=== PATIENT | female | born 1960 | race Caucasian/White ===

== ENCOUNTER → 2016-10-07 | Outpatient (CLI) | payer MEDICARE ==
[~2016-10-07] MED LIST: /HCTZ25TA PO; /LAMO10TA; /PANT40TA; /PANT40TA OR; /PANT40TA PO; /WARF25TA; ABIL10TA PO; ABIL30TA4; ABIL30TA4 OR; AMMO12LO TOP; ARTI99.0 OU; ARTISOL10 OU; ASPI1TAB PO; ASPI81TA85 PO; ASTE137S; ASTELIN NASAL; ASTELIN NASAL SPRAY; AZIT250T3 PO; BUSP10TA PO; BUSP15TA47 PO; BUSP30TA; BUSP30TA PO; BUSPAR PO; CALC1TAB64 PO; CALC600T7 PO; CALCCHW12; CALCCHW12 OR; CALCD50TA PO; CICL8SOL TOP; COLA100C2; COLACE PO; CUTI0.05 TOP; DEPLIN; DOC Q LACE PO; DOCU100C PO; DOCU10ELUD PO; ENOX40SY; FLUT0.003 EX; HYDR EXT; IBUP600T26 PO; JOLESSA; JOLETAB; LAC HYDRIN 12%; LAC HYDRIN TOP; LACH12LO EXT; LACHYDRIN TOP; LAMISIL250 PO; LATA5OPD OU; LATU40TA PO; LITH150C OR; LITH300T2 OR; LITH300T2 PO; LITH450T; LITH600C PO; LITHIUM CARBONATE; LORA10TA2 PO; LOTRISCREA TOPICALLY; MONISTAT7 TOPICALLY; MOTRIN6 PO; MULTCAP11 PO; MULTIVIT PO; NAPROSY375 PO; NASONEX NASAL; NEURONTIN6 PO; NIZORALCR TOP; NYST100024 TOP; NYSTATIN; NYSTATINP TOPICAL; OXISTAT TOPICAL; PREVACID30 PO; PRIL40CA PO; PRILOSEC20 PO; PRILOSECOT PO; RISP1TAB OR; ROBITUSSIN PO; ROZEREM; SEASONALE PO; SENO8.6T2 PO; SERO1TAB PO; SYNT50TA; SYNT50TA OR; SYNT50TA PO; SYNTHROI05 PO; TRAZ100T; TRAZ50TA; TRAZ50TA OR; TRAZ50TA2 PO; TYLE325T5 PO; TYLENOL ARTHRITIS; TYLENOL325 PO; VIOXX125 PO; VIOXX25 PO; VITMTA PO; VOLT1GEL2 TD; VOLT1GEL24 TD; XANA0.25 PO; XANA0.5T PO; YASMIN PO; ZIPR60CA11 PO; ZOLO100T; ZOLO100T PO; ZOLO50TA; ZOLO50TA OR; ZOLO50TA PO; ZYRT10CA PO; [UNRECOGNIZED DRUG - CODE] EX; [UNRECOGNIZED DRUG - CODE] PO; [UNRECOGNIZED DRUG - OTHER] TOPICAL; trazodone PO
[2016-10-07 09:21] LABS: BLOOD UREA NITROGEN 18 MG/DL (7-18); CREATININE FOR GFR 0.74 MG/DL (0.55-1.02); GLOMERULAR FILTRATION RATE > 60.0 (>51)
[2016-10-07 09:23] LABS: LITHIUM LEVEL 0.76 MEQ/L (0.60-1.20)
== END ==
LOC: M LAB 07:36
PROVIDERS: ATTEND Psychiatry & Neurology Psychiatry
DX: F31.9 Bipolar disorder, unspecified (principal)

== ENCOUNTER → 2016-10-07 | Outpatient (CLI) | payer MEDICARE ==
[2016-10-07 08:28] LABS: BASO % 0.5 % (0.0-1.0); EOS # 0.2 K/mm3 (0.0-0.50); EOS % 2.8 % (0.0-3.0); LARGE UNSTAINED CELL # 0.1 K/mm3 (0.0-0.4); LARGE UNSTAINED CELL % 1.8 % (0.0-4.0); LYMPH # 1.4 K/mm3 (1.5-4.5); LYMPH % 19.8 % (24.0-44.0); MEAN CORPUSCULAR HEMOGLOBIN 28.6 pg (27.0-33.0); MEAN CORPUSCULAR VOLUME 89.6 fl (80.0-96.0); MONO # 0.3 K/mm3 (0.0-0.8); MONO % 4.9 % (0.0-5.0); NEUTROPHILS # 4.6 K/mm3 (1.8-7.7); NEUTROPHILS % 70.2 % (36.0-66.0); PLATELET COUNT, AUTOMATED 210 k/mm3 (150-450); RED CELL DISTRIBUTION WIDTH 14.1 % (11.5-14.5); WHITE BLOOD COUNT 6.5 K/mm3 (4.0-10.0)
[2016-10-07 09:06] LABS: ALBUMIN 3.7 GM/DL (3.2-5.2); ALBUMIN/GLOBULIN RATIO 1.12 (1.00-1.93); ALKALINE PHOSPHATASE 137 U/L (45-117); ALT/SGPT 25 U/L (12-78); ANION GAP 7 MEQ/L (8-16); AST/SGOT 16 U/L (15-37); BILIRUBIN,TOTAL 0.3 MG/DL (0.2-1.0); BLOOD UREA NITROGEN 18 MG/DL (7-18); CALCIUM LEVEL 9.1 MG/DL (8.5-10.1); CARBON DIOXIDE LEVEL 29 MEQ/L (21-32); CHLORIDE LEVEL 107 MEQ/L (98-107); CHOLESTEROL LEVEL 183 MG/DL (<200); CREATININE FOR GFR 0.73 MG/DL (0.55-1.02); FREE T4 1.06 NG/DL (0.76-1.46); GLOMERULAR FILTRATION RATE > 60.0 (>51); GLUCOSE, FASTING 93 MG/DL (70-105); POTASSIUM SERUM 4.1 MEQ/L (3.5-5.1); SODIUM LEVEL 143 MEQ/L (136-145); TRIGLYCERIDES LEVEL 160 MG/DL (<150)
== END ==
LOC: M LAB 07:41
PROVIDERS: ATTEND Nurse Practitioner Family
DX: K21.9 Gastro-esophageal reflux disease without esophagitis (principal); E03.9 Hypothyroidism, unspecified; Z13.220 Encounter for screening for lipoid disorders; F31.9 Bipolar disorder, unspecified

== ENCOUNTER 2016-10-12 13:54 | Inpatient (IN) | payer MEDICAID, MEDICARE ==
[~2016-10-12] VITALS: Ht 160 cm; Wt 107.6 kg
[2016-10-12 15:19] LABS: MEAN CORPUSCULAR HEMOGLOBIN 29.4 pg (27.0-33.0); MEAN CORPUSCULAR HGB CONC 32.6 g/dl (32.0-36.5); MEAN CORPUSCULAR VOLUME 90.1 fl (80.0-96.0); RED CELL DISTRIBUTION WIDTH 14.2 % (11.5-14.5); WHITE BLOOD COUNT 9.2 K/mm3 (4.0-10.0)
[2016-10-12 15:43] LABS: CONTROL LINE INT CTR LINE PRESENT; METHADONE URINE NEGATIVE (NEGATIVE); TRICYCLIC ANTIDEPRESS URINE NEGATIVE (NEGATIVE)
[2016-10-12 15:52] LABS: ALBUMIN 3.9 GM/DL (3.2-5.2); ALBUMIN/GLOBULIN RATIO 1.15 (1.00-1.93); ALKALINE PHOSPHATASE 137 U/L (45-117); ALT/SGPT 24 U/L (12-78); ANION GAP 6 MEQ/L (8-16); AST/SGOT 16 U/L (15-37); BILIRUBIN,DIRECT < 0.1 MG/DL (0.0-0.2); BILIRUBIN,TOTAL 0.3 MG/DL (0.2-1.0); BLOOD UREA NITROGEN 14 MG/DL (7-18); CALCIUM LEVEL 9.2 MG/DL (8.5-10.1); CARBON DIOXIDE LEVEL 30 MEQ/L (21-32); CHLORIDE LEVEL 105 MEQ/L (98-107); CREATININE FOR GFR 0.73 MG/DL (0.55-1.02); GLOMERULAR FILTRATION RATE > 60.0 (>51); GLUCOSE, FASTING 119 MG/DL (70-105); SODIUM LEVEL 141 MEQ/L (136-145); TOTAL PROTEIN 7.3 GM/DL (6.4-8.2)
[2016-10-12 15:53] LABS: LITHIUM LEVEL 0.91 MEQ/L (0.60-1.20)
[2016-10-12] MEDS ORDERED: LURASIDONE HCL 40 MG TAB (LATUDA) PO SCH (18:00)
[2016-10-12] MEDS ORDERED: GEOD60CA PO (19:05)
[2016-10-12] MEDS ORDERED: OMEP40CA2 PO (19:05)
[2016-10-12] MEDS ORDERED: LATU40TA PO (19:06)
[2016-10-12] MEDS ORDERED: AMMO12CR4 EXT (19:06)
[2016-10-12] MEDS ORDERED: IBUP60TA PO (19:12)
[2016-10-12] MEDS ORDERED: ACET-654 PO (19:12)
[2016-10-12] MEDS ORDERED: CICL0.7739 EXT (19:12)
[2016-10-12] MEDS ORDERED: FLUT0.003 EXT (19:12)
[2016-10-12] MEDS: DOCUSATE SODIUM 100 MG CAP PO SCH (21:00)
[2016-10-12] MEDS: ZIPRASIDONE 20MG CAPSULE (GEODON) PO SCH (21:00)
[2016-10-12] MEDS: CALCIUM/VITAMIN D 500 MG TAB PO SCH (21:00)
[2016-10-12] MEDS: LITHIUM CARBONATE 600 MG CAP PO SCH (21:00)
[2016-10-12] MEDS ORDERED: QUEtiapine FUMARATE 50 MG TAB PO SCH (21:00)
[2016-10-12] MEDS ORDERED: busPIRone 10 MG TAB PO SCH (21:00)
--- NOTE | 2016-10-12 22:57 | EDDOCDS ---
Nurse's Notes [facility] Name: Tati Sevilla Age: 56 yrs Sex: Female : 1960 Arrival Date: 10/12/2016 Time: 13:54 Bed [facility] Private MD: Jose Sims [place] Diagnosis: Schizoaffective disorder, bipolar type Presentation: 10/12 14:00 Presenting complaint: Patient states: Very irritable, thoughts of hurting self and mlb1 audible halucinations. Mental Health Triage Level: Level 2: The patient displays active suicidal ideations. Adult Sepsis Screening: The patient does not have new or worsening altered mentation. Patient's respiratory rate is less than 22. Systolic blood pressure is greater than 100. Patient has a qSOFA score of 0- Negative Sepsis Screen. Suicide/Homicide risk assessment- The patient admits to and/or has been reported to be having suicidal ideations. The patient reports that he/she has not been admitted to an inpatient mental health facility in the last 30 days. The patient reports that he/she does not have a recent or current history of substance abuse. The patient reports that he/she has a prior history of suicide attempt and/or organized plan. The patient reports that he/she has not experienced a significant life altering event in the last 30 days. The patient reports that he/she has adequate social support. Status: Patient is not a equipment service technician or dependent. Transition of care: patient was not received from another setting of care. 14:00 Acuity: DARIO Level 3 mlb1 14:00 Method Of Arrival: Walkin/Carried/Asstd mlb1 Triage Assessment: 14:11 General: Appears in no apparent distress, Behavior is appropriate for age, cooperative. mlb1 Pain: Denies pain. Pt Declines HIV testing. Historical: - Allergies: Meclizine; Stelazine; thorazine; Wellbutrin; - Home Meds: 1. aspirin 81 mg Oral tab once daily 2. Multivitamin Oral 1 tab daily 3. refresh tears 2 drops in both eyes daily twice a day 4. levothyroxine 50 mcg Oral tab 1 tab once daily 5. Zoloft 50 mg Oral tab 1 tab once daily 6. omeprazole 40 mg Oral cpDR 1 cap once daily 7. Seroquel 150mg Oral tab 1 tab HS 8. hydrocortisone 0.5 % Topical crea once daily 9. BuSpar 30 mg Oral tab 0.5 tab daily 10. BuSpar 30 mg Oral tab 1 tab nightly 11. Zyrtec 10 mg Oral tab 1 tab once daily 12. Geodon 60 mg Oral cap 1 cap 2 times per day 13. Latuda 40 mg oral tab 1 tab once daily 14. cacium/Vitamin D 600/400 twice a day 15. latanoprost solution 1 drop in each eye at night nightly 16. lithium carbonate 600 mg Oral cap nightly 17. Docusate Sodium 1-2 pills twice/day as needed Oral 18. triamcinolone acetonide 0.1 % Topical crea 2 times per day as needed 19. Nystatin ointment twice/day as needed 20. nystatin 100,000 unit/gram Topical powd 2 times per day as needed 21. Tylenol 325 mg Oral tab 2 tabs every 4-6 hours as need 22. fluticasone 0.05 % topical lotn once daily as needed 23. ciclopirox 0.77 % topical crea 2 times per day as needed 24. ibuprofen 600 mg Oral tab 1 tab every 6 hours as needed - PMHx: Anxiety Disorder; Depression; GERD; Hypothyroidism; Schizo-Affective Disorder; Sleep Apnea w/ CPAP; - PSHx: Colonoscopy; Breast biopsy- Left; Tonsillectomy; - Social history: Smoking status: Patient states was never smoker of tobacco. No barriers to communication noted, The patient speaks fluent Romanian, Speaks appropriately for age. - Family history: Not pertinent. - : The pt / caregiver states he / she is not on anticoagulants. Home medication list is obtained from the patient. - Exposure Risk Screening:: None identified. Screenin:12 Screening information is obtained from the patient. Fall risk: No risks identified. jo3 Assistance ADL's: requires no assistance with activities of daily living. Abuse/DV Screen: The patient / caregiver reports he/she is: not in a situation that causes fear, pain or injury. Nutritional screening: No deficits noted. Advance Directives: There is no active DNR order. home support is adequate. Assessment: 20:10 General: Appears in no apparent distress, comfortable, Behavior is appropriate for age, jo3 cooperative, pleasant. General: First contact with pt. Resting on stretcher in state of comfort. Awaiting admission to [facility]. Aware of plan of care. Security observing . Neurological: Level of Consciousness is awake, alert, Oriented to person, place, time. Cardiovascular: No deficits noted. Respiratory: Airway is patent Respiratory effort is even, unlabored. Derm: Skin is pink, warm & dry. 22:45 General: Appears in no apparent distress, Behavior is appropriate for age, cooperative. sls1 Neurological: No deficits noted. Respiratory: No deficits noted. Mental Health Eval: 15:32 Mental health consult is initiated at 15:33. Status: The patient is not a ks equipment service technician or dependent. 16:05 [facility] Behavioral Health: The patient is not an established patient of [facility] Behavioral ks Health. Referral Information: Evaluation referral is generated by the patient's therapist Rowan Mary at [facility]. The patient was referred for evaluation because Pt having increasing episodes of anger outbursts and SI. Subjective: The patients chief complaint is Pt states she saw counselor and was brought to ED due to thoughts of cutting her wrists, which take place mostly during her anger outbursts. Pt also reports punching the chowdhury, yelling and screaming and having verbal fights with friends in her apt. Pt hearing "a voice inside my head" telling her to "do things" but is unsure if this is actually an AH. . Delusions are denied. Patient's mood is depressed, Auditory Hallucinations are reported by the patient. Command hallucinations are reported by the patient. Pt reports frequent concerns about people she is close to, and is upset that she continues to have arguments with them. Pt says she does not understand the source of her anger, only that it is getting worse every day. Pt is unsure if she will harm self at this time, stating she only gets that was when she is angry, but that is every day. Pt called the crisis line yesterday and threatened to cut her wrists, then said it was only because she was angry. Pt resides in the [facility] apt program but has been considering asking for placement in the community residence due to her decompensation. Mental Health history: Schizoaffective D/O. Mental Health Admissions: Multiple, most recently at [facility] 07/13 Current Outpatient Mental Health Services: Psychiatrist / Agency: Dr Elizondo at [facility]. Therapist / Agency: Rowan Morel at [facility]. Current living environment is Family / Home Support: Pt has inadequate supports The patient currently lives in a [facility] apartment. The patient is single. Patient presents to Emergency Department with the following symptoms within the past 2 weeks: anger, antisocial behavior, depressed mood, poor impulse control, relational problem, sleep disturbance - erratic suicidal ideation with plan for cutting. Substance abuse: Pt denies. Mental status exam: Patients appearance is appropriate, Patient's behavior is cooperative, Speech is normal. Affect is appropriate. Mood is depressed. Auditory Hallucinations are reported by the patient. Appetite is erratic Memory is good. Energy level is normal. Content of thought is Depression Thought process is intact. Cognitive level is oriented to person, place, time and situation Patient's insight is fair. Judgement is poor. Rapport with interviewer is good. Suicidal Ideation present with a plan to kill self by cutting. Homicidal ideation is denied. Disposition: Medically cleared for disposition by Marcus Cruz MD. 17:18 Disposition: Psychiatric Consult is performed by phone with Dr Aristeo Santiago MD. [facility] ca Admission Criteria: The patient is experiencing suicidal ideation. The patient displays symptoms of severe psychiatric disorder resulting in disordered behavior and significant interference with his / her ability to maintain self care. Psychomotor Retardation. anger outbursts. 17:59 [facility] Admission Criteria: The patient requires continuous observation and/or control to ca protect self, others or property. The patient's care requires a multi-modal treatment plan under close supervision and coordination due to the complexity and severity of the patient's symptoms. The patient requires administration and monitoring of psychoactive medications by skilled medical providers due to the side effects of the psychoactive medications or significant dosage adjustments. Legal Status: Patient's legal status will be Emergency admission: . [place] Safe Act: [place] Safe Act is applicable to this patient. The patient poses a risk to self or other and the Nursing Sports Physical Therapist has been notified. He/She will enter the patient's data. DSM-V Differential Diagnosis: Schizoaffective Disorder (F25.0) bipolar type (F25.0). Awaiting: transfer to [facility]. Vital Signs: 13:55 BP 136 / 70; Pulse 83; Resp 18 S; Temp 96.9(O); Pulse Ox 98% on R/A; Weight 105.23 kg gr2 (R); Height 5 ft. 3 in. (160.02 cm) (R); Pain 2/10; 22:34 BP 143 / 69; Pulse 79; Resp 18; Temp 98.7(T); Pulse Ox 96% ; Pain 0/10; mas 13:55 Body Mass Index 41.10 (105.23 kg, 160.02 cm) gr2 Vitals: 13:55 Log In Time: October 12, 2016 at 13:55. RN notified that patient meets Red Flag gr2 criteria. ED Course: 13:55 Patient visited by Alcides Rodriguez. gr2 13:55 Jose Sims is Private Physician. gr2 13:55 Patient moved to Waiting gr2 13:58 Patient visited by Alcides Rodriguez. gr2 14:00 Patient visited by Red Miranda, TASIA. mlb1 14:02 Triage Initiated mlb1 14:08 Patient moved to Pre RCE ms18 14:11 Patient visited by Red Miranda, RN. mlb1 14:11 Patient moved to [facility] mlb1 14:14 Marcus Cruz MD is Attending Physician. br1 14:17 Pt greeted and oriented to ED. Patient advised of names of staff involved in care, pjf location of call galloway, wait times and NPO status. Accompanied by Caregiver, Patient has correct armband on for positive identification. Bed in low position. Call light in reach. Side rails up X 1. Security observing. Property prop. removal is pending the arrival of a female observer. Door closed. Noise minimized. Visitors limited. Report received from rn - psych. triage level #2, +si / +ah, cooperative this time. The patient / caregiver is instructed regarding the plan of care and ED course. Psych Safety Check: Location: Psych Room. 14:39 Patient visited by Jose Christiansen Security Aide. pjf 15:07 Acetaminophen Level Sent. js13 15:07 Basic Metabolic Profile Sent. js13 15:07 Complete Blood Count Sent. js13 15:08 Drug Eval Toxicology ED Only Sent. js13 15:08 Ethyl Alcohol (ethanol) Sent. js13 15:08 Liver Profile Sent. js13 15:08 Salicylate Level Sent. js13 15:08 Thyroid Stimulating Hormone Sent. js13 15:15 Patient visited by Marcus Cruz MD. br1 15:28 Patient visited by Ferendzo, Jose, Security Aide. pjf 15:32 LITHIUM LEVEL Sent. jrd 15:43 Patient visited by Jose Christiansen Security Aide. pjf 15:57 Patient visited by Jose Christiansen Security Aide. pjf 16:13 Patient visited by Jose Christiansen Security Aide. pjf 16:33 Patient visited by Jose Christiansen Security Aide. pjf 16:44 Patient visited by Jose Christiansen Security Aide. pjf 17:07 Patient visited by Marty Adkins PCA. jrd 17:14 [facility] Payment Agreement was scanned into salgomed and attached to record. gjb 17:36 Patient visited by Marty Adkins PCA. jrd 17:46 Patient visited by Marty Adkins PCA. jrd 18:00 Psych Safety Check: Location: Psych Room. Visual Assessment: Cooperative. pjf 18:14 Patient visited by Marty Adkins PCA. jrd 18:28 Aristeo Santiago MD is Hospitalizing Provider. br1 18:29 Patient visited by Jose Christiansen Security Aidanish. pjf 18:33 [facility] Legal paperwork was scanned into salgomed and attached to record. ml4 18:41 Patient visited by Ten Loera. mas 18:56 Patient visited by Ten Loera. mas 19:19 Patient visited by Jose Christiansen Security Aide. pjf 19:33 Patient visited by Ten Loera. mas 19:45 Patient visited by Ten Loera. mas 20:00 Patient visited by Ten Loera. mas 20:12 Patient visited by Ingrid Gibson RN. jo3 20:15 Patient visited by Ten Loera. mas 20:30 Patient visited by Ten Loera. mas 20:45 Patient visited by Ten Loera. mas 21:00 Patient visited by Ten Loera. mas 21:15 Patient visited by Ten Loera. mas 21:30 Patient visited by Ten Loera. mas 21:46 Patient visited by Ten Loera. mas 22:03 Patient visited by Ten Loera. mas 22:15 Patient visited by Ten Loera. mas 22:31 Patient visited by Ten Loera. mas 22:45 Patient visited by Ten Loera. mas 22:45 No IV's were initiated during this patient's visit. No procedures done that require sls1 assistance. Attachments: 18:33 E Legal paperwork ml4 Order Results: Lab Order: Acetaminophen Level; SPEC' 10/12/16 15:07 Test: ACETAMINOPHEN LEVEL; Value: < 2.0; Range: 10.0-30.0; Abnormal: Below low normal; Units: UG/ML; Status: F Lab Order: Basic Metabolic Profile; [facility]' 10/12/16 15:07 Test: GLUCOSE, FASTING; Value: 119; Range: 70-105; Abnormal: Above high normal; Units: MG/DL; Status: F Test: BLOOD UREA NITROGEN; Value: 14; Range: 7-18; Units: MG/DL; Status: F Test: CREATININE FOR GFR; Value: 0.73; Range: 0.55-1.02; Units: MG/DL; Status: F Test: GLOMERULAR FILTRATION RATE; Value: > 60.0; Range: >51; Status: F Test: SODIUM LEVEL; Value: 141; Range: 136-145; Units: MEQ/L; Status: F Test: POTASSIUM SERUM; Value: 4.0; Range: 3.5-5.1; Units: MEQ/L; Status: F Test: CHLORIDE LEVEL; Value: 105; Range: 98-107; Units: MEQ/L; Status: F Test: CARBON DIOXIDE LEVEL; Value: 30; Range: 21-32; Units: MEQ/L; Status: F Test: ANION GAP; Value: 6; Range: 8-16; Abnormal: Below low normal; Units: MEQ/L; Status: F Test: CALCIUM LEVEL; Value: 9.2; Range: 8.5-10.1; Units: MG/DL; Status: F Test Note: ; Units are mL/min/1.73 m2 Chronic Kidney Disease Staging per NKF: Stage I & II GFR >=60 Normal to Mildly Decreased Stage III GFR 30-59 Moderately Decreased Stage IV GFR 15-29 Severely Decreased Stage V GFR <15 Very Little GFR Left ESRD GFR <15 on [facility] Lab Order: Complete Blood Count; SPEC' 10/12/16 15:07 Test: WHITE BLOOD COUNT; Value: 9.2; Range: 4.0-10.0; Units: K/mm3; Status: F Test: RED BLOOD COUNT; Value: 4.37; Range: 4.00-5.40; Units: M/mm3; Status: F Test: HEMOGLOBIN; Value: 12.8; Range: 12.0-16.0; Units: g/dl; Status: F Test: HEMATOCRIT; Value: 39.3; Range: 36.0-47.0; Units: %; Status: F Test: MEAN CORPUSCULAR VOLUME; Value: 90.1; Range: 80.0-96.0; Units: fl; Status: F Test: MEAN CORPUSCULAR HEMOGLOBIN; Value: 29.4; Range: 27.0-33.0; Units: pg; Status: F Test: MEAN CORPUSCULAR HGB CONC; Value: 32.6; Range: 32.0-36.5; Units: g/dl; Status: F Test: RED CELL DISTRIBUTION WIDTH; Value: 14.2; Range: 11.5-14.5; Units: %; Status: F Test: PLATELET COUNT, AUTOMATED; Value: 229; Range: 150-450; Units: k/mm3; Status: F Lab Order: Drug Eval Toxicology ED Only; SPEC'M 10/12/16 15:07 Test: AMPHETAMINES LEVEL URINE; Value: NEGATIVE; Range: NEGATIVE; Status: F Test: BARBITURATES URINE; Value: NEGATIVE; Range: NEGATIVE; Status: F Test: BENZODIAZEPINES URINE; Value: NEGATIVE; Range: NEGATIVE; Status: F Test: CANNABINOIDS URINE; Value: NEGATIVE; Range: NEGATIVE; Status: F Test: COCAINE METABOLITE URINE; Value: NEGATIVE; Range: NEGATIVE; Status: F Test: METHADONE URINE; Value: NEGATIVE; Range: NEGATIVE; Status: F Test: OPIATES URINE; Value: NEGATIVE; Range: NEGATIVE; Status: F Test: TRICYCLIC ANTIDEPRESS URINE; Value: NEGATIVE; Range: NEGATIVE; Status: F Test Note: ; ALL PRESUMPTIVE POSITIVE FINDINGS ARE UNCONFIRMED NORMAL VALUES THRESHOLD IN NG/ML AMPHETAMINES 1000 METHAMPHETAMINES 1000 BARBITURATES 300 BENZODIAZEPINES 300 CANNABINOIDS (THC) 50 COCAINE METABOLITE 300 METHADONE 300 OPIATES 300 PHENCYCLIDINE 25 TRICYCLIC ANTIDEPRESSANTS 1000 RESULTS ARE FOR MEDICAL PURPOSES ONLY. ALL URINE SPECIMENS WILL BE SAVED FOR 3 DAYS. IF CONFIRMATION OF A PRESUMPTIVE POSTIVE SCREEN RESULT IS DESIRED, CALL CHEMISTRY ([phone]) AND REQUEST URINE TO BE SENT TO REFERENCE LAB. FOR A LIST OF CLOSELY RELATED COMPOUNDS PLEASE CALL THE LAB. Lab Order: Ethyl Alcohol (ethanol); [facility] 15: Test: ETHYL ALCOHOL (ETHANOL); Value: < 0.003; Range: 0.000-0.010; Units: %; Status: F Lab Order: Liver Profile; [facility] 10/12/16 15: Test: AST/SGOT; Value: 16; Range: 15-37; Units: U/L; Status: F Test: ALT/SGPT; Value: 24; Range: 12-78; Units: U/L; Status: F Test: ALKALINE PHOSPHATASE; Value: 137; Range: 45-117; Abnormal: Above high normal; Units: U/L; Status: F Test: BILIRUBIN,TOTAL; Value: 0.3; Range: 0.2-1.0; Units: MG/DL; Status: F Test: BILIRUBIN,DIRECT; Value: < 0.1; Range: 0.0-0.2; Units: MG/DL; Status: F Test: TOTAL PROTEIN; Value: 7.3; Range: 6.4-8.2; Units: GM/DL; Status: F Test: ALBUMIN; Value: 3.9; Range: 3.2-5.2; Units: GM/DL; Status: F Test: ALBUMIN/GLOBULIN RATIO; Value: 1.15; Range: 1.00-1.93; Status: F Lab Order: Salicylate Level; [facility] 10/12/16: Test: SALICYLATE LEVEL; Value: < 1.7; Range: 5.0-30.0; Abnormal: Below low normal; Units: MG/DL; Status: F Lab Order: Thyroid Stimulating Hormone; 10/12/16 15: Test: THYROID STIMULATING HORMONE; Value: 3.120; Range: 0.358-3.740; Units: uIU/ML; Status: F Lab Order: LITHIUM LEVEL; [facility] 10/12/16 15: Test: LITHIUM LEVEL; Value: 0.91; Range: 0.60-1.20; Units: MEQ/L; Status: F Outcome: 18:29 Decision to Hospitalize by Provider. br1 22:45 Discharge Assessment: Patient awake, alert and oriented x 3. No cognitive and/or sls1 functional deficits noted. Patient verbalized understanding of disposition instructions. patient administered narcotics - no. The following High Risk Discharge criteria are identified: Yes, psych admit. Condition: stable. No special radiology studies were completed. 22:56 Patient left the ED. [facility] Signatures: Cammy Grant, PSA PSA faiza Christiansen, Jose, Security Aide Red Cook RN RN mlb1 Ingrid Gibson,RN RN jo3 Naty Jauregui, PSA PSA ml4 Marcus Cruz MD MD br1 Ten Loera Shannon RN RN sls1 Ingrid Chery,RN RN js13 Alcides Rodriguez2 Ainsley Vasquez,RN RN ms18 Marty Adkins, NATHANIEL AUDIO NARRATOR Beba Moncada Corrections: (The following items were deleted from the chart) 15:15 15:07 LITHIUM LEVEL+LAB sent. js13 EDMS MTDD
--- NOTE | 2016-10-12 22:57 | EDDOCDS ---
Physician Documentation [facility] Name: Tati Sevilla Age: 56 yrs Sex: Female : 1960 Arrival Date: 10/12/2016 Time: 13:[address] MD: Jose Sims [place] Disposition: 10/12/16 18:29 Hospitalization ordered by Aristeo Santiago for Inpatient Admission. Preliminary diagnosis is Schizoaffective disorder, bipolar type. - Bed requested for Admit. - Status is Inpatient Admission. sls1 - Condition is Stable. - Problem is new. - Symptoms are unchanged. Historical: - Allergies: Meclizine; Stelazine; thorazine; Wellbutrin; - Home Meds: 1. aspirin 81 mg Oral tab once daily 2. Multivitamin Oral 1 tab daily 3. refresh tears 2 drops in both eyes daily twice a day 4. levothyroxine 50 mcg Oral tab 1 tab once daily 5. Zoloft 50 mg Oral tab 1 tab once daily 6. omeprazole 40 mg Oral cpDR 1 cap once daily 7. Seroquel 150mg Oral tab 1 tab HS 8. hydrocortisone 0.5 % Topical crea once daily 9. BuSpar 30 mg Oral tab 0.5 tab daily 10. BuSpar 30 mg Oral tab 1 tab nightly 11. Zyrtec 10 mg Oral tab 1 tab once daily 12. Geodon 60 mg Oral cap 1 cap 2 times per day 13. Latuda 40 mg oral tab 1 tab once daily 14. cacium/Vitamin D 600/400 twice a day 15. latanoprost solution 1 drop in each eye at night nightly 16. lithium carbonate 600 mg Oral cap nightly 17. Docusate Sodium 1-2 pills twice/day as needed Oral 18. triamcinolone acetonide 0.1 % Topical crea 2 times per day as needed 19. Nystatin ointment twice/day as needed 20. nystatin 100,000 unit/gram Topical powd 2 times per day as needed 21. Tylenol 325 mg Oral tab 2 tabs every 4-6 hours as need 22. fluticasone 0.05 % topical lotn once daily as needed 23. ciclopirox 0.77 % topical crea 2 times per day as needed 24. ibuprofen 600 mg Oral tab 1 tab every 6 hours as needed - PMHx: Anxiety Disorder; Depression; GERD; Hypothyroidism; Schizo-Affective Disorder; Sleep Apnea w/ CPAP; - PSHx: Colonoscopy; Breast biopsy- Left; Tonsillectomy; - Social history: Smoking status: Patient states was never smoker of tobacco. No barriers to communication noted, The patient speaks fluent Scottish, Speaks appropriately for age. - Family history: Not pertinent. - : The pt / caregiver states he / she is not on anticoagulants. Home medication list is obtained from the patient. - Exposure Risk Screening:: None identified. Vital Signs: 10/12 13:55 BP 136 / 70; Pulse 83; Resp 18 S; Temp 96.9(O); Pulse Ox 98% on R/A; Weight 105.23 kg / gr2 231.99 lbs (R); Height 5 ft. 3 in. (160.02 cm) (R); Pain 2/10; 22:34 BP 143 / 69; Pulse 79; Resp 18; Temp 98.7(T); Pulse Ox 96% ; Pain 0/10; mas 13:55 Body Mass Index 41.10 (105.23 kg, 160.02 cm) gr2 MDM: 14:14 Consult PFS/PSA/Planting Material Unloader ordered. br1 14:14 Consult PFS/PSA/Planting Material Unloader: Patient's case requires discussion with on-call br1 Psychiatrist ordered. 14:14 PSA/PFS to call Nursing Charger Operator Helper, to enter patient data on [place] Safe Act if patient br1 involuntarily admitted or transferred for SI or HI ordered. 14:14 Confirm accurate psychiatric medication list and times of last dosage ordered. br1 14:14 Detain Pt Until Medically/PFS Cleared ordered. br1 14:16 Acetaminophen Level Ordered. EDMS 14:16 Basic Metabolic Profile Ordered. EDMS 14:16 Complete Blood Count Ordered. EDMS 14:16 Drug Eval Toxicology ED Only Ordered. EDMS 14:16 Ethyl Alcohol (ethanol) Ordered. EDMS 14:16 Liver Profile Ordered. EDMS 14:16 Salicylate Level Ordered. EDMS 14:16 Thyroid Stimulating Hormone Ordered. EDMS 15:16 LITHIUM LEVEL Ordered. EDMS 16:16 Acetaminophen Level Reviewed. br1 16:16 Basic Metabolic Profile Reviewed. br1 16:16 Liver Profile Reviewed. br1 16:16 Salicylate Level Reviewed. br1 16:16 Complete Blood Count Reviewed. br1 16:16 Drug Eval Toxicology ED Only Reviewed. br1 16:16 Ethyl Alcohol (ethanol) Reviewed. br1 16:16 Thyroid Stimulating Hormone Reviewed. br1 16:16 LITHIUM LEVEL Reviewed. br1 16:17 Consult PFS/PSA/Socail Worker: Cleared medically for eval ordered. br1 16:33 REGULAR DIET PLASTIC YOST+DIET ordered. EDMS 16:47 Consult PFS/PSA/Socail Worker: Cleared medically for eval complete. ca 16:47 Financial registration complete. gjb 16:47 Consult PFS/PSA/Planting Material Unloader complete. ca 16:47 Consult PFS/PSA/Planting Material Unloader: Patient's case requires discussion with on-call ca Psychiatrist complete. 16:47 PSA/PFS to call Nursing Charger Operator Helper, to enter patient data on [place] Safe [place] if patient ca involuntarily admitted or transferred for SI or HI complete. 17:14 [facility] Payment Agreement was scanned into [employer] and attached to record. gjb 17:46 Admit to IMHU: ordered. EDMS 18:12 REGULAR DIET ordered. EDMS 18:33 [facility] Legal paperwork was scanned into [employer] and attached to record. ml4 Signatures: Dispatcher [employer] EDMS Cammy Grant, PSA PSA ca Red Miranda RN RN mlb1 Naty Jauregui, PSA PSA ml4 Marcus Cruz MD MD br1 Jacquelyn Aguilar, RN RN sls1 Beba Lopez The chart was reviewed and I authenticate all verbal orders and agree with the evaluation and treatment provided.Corrections: (The following items were deleted from the chart) 15:15 14:16 LITHIUM LEVEL+LAB ordered. EDMS EDMS Attachments: 17:14 [facility] Payment Agreement gjb MTDD
[2016-10-12 23:05] VITALS: BP 143/69
[2016-10-13] MEDS ORDERED: MAALOX 30 ML SUSP *UDC PO PRN (00:30)
[2016-10-13] MEDS ORDERED: MULTIVITAMINS/MINERALS THERAP 1 TAB PO ONE (00:45)
[2016-10-13] MEDS: LATANOPROST 0.005% OPHTH SOLN 2.5 ML OU SCH ×2 (01:43→20:16)
[2016-10-13] MEDS: LEVOTHYROXINE 0.05 MG TAB (50 MCG) PO SCH (06:15)
[2016-10-13 07:00] VITALS: BP 127/67
[2016-10-13] MEDS: ZIPRASIDONE 20MG CAPSULE (GEODON) PO SCH (08:30)
[2016-10-13] MEDS: CALCIUM/VITAMIN D 500 MG TAB PO SCH ×2 (08:31→20:16)
[2016-10-13] MEDS: SERTRALINE HCL 50 MG TAB PO SCH (08:31)
[2016-10-13] MEDS: ASPIRIN 81 MG ENTERIC TAB PO SCH (08:31)
[2016-10-13] MEDS: IBUPROFEN 400 MG TAB PO PRN ×2 (08:31→21:34)
[2016-10-13] MEDS: LITHIUM CARBONATE 600 MG CAP PO SCH (08:31)
[2016-10-13] MEDS: CETIRIZINE (ZyrTEC) 10 MG TAB PO SCH (08:31)
[2016-10-13] MEDS: OMEPRAZOLE 20 MG CAP PO SCH (08:32)
[2016-10-13] MEDS: DOCUSATE SODIUM 100 MG CAP PO SCH ×2 (08:32→20:15)
[2016-10-13] MEDS ORDERED: busPIRone 5 MG TAB PO SCH (09:00)
--- NOTE | 2016-10-13 12:18 | HPEPDOC ---
Medical History and Physical Date of Admission Oct 12, 2016 at 23:05 History and Physical PCP: Jose Sims NP ATTENDING: Dr. Skinny Kingsley HPI: 56yoF admitted to [facility] for schizoaffective disorder, being medically examined today. No acute medical complaints today. Denies any fevers, chills, weakness, fatigue, FERRARI, CP, SOB, cough, palpitations, abdominal pain, N/V/D or changes in bowel or bladder habits. PMHx: Schizoaffective disorder GERD Hypothyroid History of right lower extremity DVT Osteoarthritis Allergic rhinitis Glaucoma KANU-CPAP Eczema/psoriasis Chronic constipation PSHX: Thyroidectomy Left breast lumpectomy Tonsillectomy Colonoscopy 09/11-internal hemorrhoids SOCHX: Resides in: [facility] Marital Status: Single Kids: None Employment: Unemployed Tobacco use: Denies ETOH: Denies Illicit Drugs: Denies IV Drug Use: Denies Tattoos done unprofessionally: Denies FAMHX: Mother: Alive, osteoarthritis, osteoporosis Father: , [place] Siblings: One sister Alive, well Children: None Unexpected deaths due to medical reasons: None. ROS: As noted in HPI, otherwise 11pt ROS of systems reviewed and remarkable only for postmenopausal PE: GEN: 56 yo F, appears stated age. Well-nourished, well developed. No acute distress. Alert and oriented x 3. Pleasant, interactive. HEENT: Normocephalic, atraumatic. Pupils are equal, round, and reactive to light. Extraocular movements are intact. No nystagmus appreciated. Sclera are nonicteric. Conjunctiva without injection. Nose midline. Nasal turbinates without bogginess. EACs both patent BL. TMs both visualized and pearson with good cone of light, no bulging or erythema. No facial asymmetry. Moist mucous membranes. Dentition fair. Pharynx pink and moist, no cobblestoning. Neck supple , trachea midline. No lymphadenopathy or thyromegaly appreciated. CHEST: Regular rate and rhythm, +S1, +S2 LUNGS: Clear to auscultation bilaterally. No wheezes, rales, or rhonchi. Breathing appears symmetric and easy. Patient is speaking in full sentences. No accessory muscle use. ABD: Round, soft, non-tender, non-distended. +Bowel sounds throughout. No rebound or guarding. No costovertebral angle tenderness. EXT: Pulses 2+ bilaterally dorsalis pedis and radial. No lower extremity edema appreciated. SKIN: [place], dry, warm. Capillary refill <2sec. No rashes. NEURO: Alert and oriented x 3. Cranial nerves III-XII are intact. No focal deficits appreciated. EK07/18/16. Sinus rhythm, first-degree AV block, 78 bpm A&P: 56yoF admitted to [facility] for schizoaffective disorder 1. Psych. Plan per Psychiatry. EKG on file. 2. History of glaucoma. Continue Xalatan eyedrops both eyes daily at bedtime. 3. Borderline EKG. No cardiac signs or symptoms appreciated on exam, follow with PCP. 4. Follow up with PCP on discharge. 5. Hypothyroidism. Continue Synthroid 50 g daily. TSH within normal limits. 6. GERD. Continue Prilosec 40 mg daily. 7. Allergic rhinitis. Continue Zyrtec 10 mg daily. 8. Psoriasis. Continue Cutivate twice a day as needed. 9. KANU. Continue CPAP per home settings. 10. Staff member present throughout exam, Ingrid DOZIER. Vital Signs Vital Signs Label Value Date Time Patient Temperature 96.4 degrees F 10/13/16 0700 Temperature Source Tympanic 10/13/16 0700 Pulse 71 10/13/16 0700 Respiratory Rate 18 bpm 10/13/16 0700 Blood Pressure Assessment 127/67 (87) 10/13/16 0700 Laboratory Data Labs 24H Laboratory Tests 2 10/12/16 15:07: Acetaminophen Level < 2.0L, Aspartate Amino Transf (AST/SGOT) 16, Alanine Aminotransferase (ALT/SGPT) 24, Alkaline Phosphatase 137H, Total Bilirubin 0.3, Direct Bilirubin < 0.1, Albumin 3.9, Albumin/Globulin Ratio 1.15, Anion Gap 6L, Calcium Level 9.2, Ethyl Alcohol Level < 0.003, Glomerular Filtration Rate > 60.0, [place] Level 0.91, Salicylates Level < 1.7L, Thyroid Stimulating Hormone (TSH) 3.120, Total Protein 7.3, Urine Amphetamine Level NEGATIVE, Urine Benzodiazepines Screen NEGATIVE, Urine Cannabinoids NEGATIVE, Urine Cocaine Metabolite NEGATIVE, Urine Opiates Screen NEGATIVE, Urine Barbiturates, Qualitative NEGATIVE, Urine Methadone Screen NEGATIVE, Urine Tricyclic Antidepressants NEGATIVE CBC/BMP Laboratory Tests 10/12/16 15:07 Red Blood Count 4.37, Mean Corpuscular Volume 90.1, Mean Corpuscular Hemoglobin 29.4, Mean Corpuscular Hemoglobin Concent 32.6, Red Cell Distribution Width 14.2 Home Medications Scheduled (Calcium/Vitamin D3 600-400 mg-Unit) 1 Tab Tab 1 TAB PO BID SUPPLEMENT (Ammonium Lactate) 12 % Cre 12 % EXT DAILY APPLIED TO LEGS AND ARMS Aspirin (Aspirin 81) 81 Mg Tab 81 MG PO DAILY . Buspirone HCl (Buspirone HCl) 15 Mg Tab 15 MG PO QAM ANXIETY Buspirone HCl (Buspirone HCl) 30 Mg Tab 30 MG PO QHS ANXIETY Cetirizine HCl (Zyrtec Allergy) 10 Mg Cap 10 MG PO DAILY ALLERGIES Latanoprost (Latanoprost) 50 Drop/2.5 Ml Soln 1 DROP OU QHS GLAUCOMA Levothyroxine Sodium (Synthroid) 50 Mcg Tab 50 MCG PO QAM . [place] Carbonate ([place] Carbonate) 600 Mg Cap 600 MG PO BID MOOD Lurasidone Hydrochloride (Latuda) 40 Mg Tab 40 MG PO QPM Multivitamins *[facility] STOCKED* (Thera M Plus *[facility] STOCKED*) 1 Tab Tab 1 TAB PO DAILY SUPPLEMENT Omeprazole (Omeprazole) 40 Mg Cap 40 MG PO DAILY Quetiapine Fumerate (Seroquel) 100 Mg Tab 150 MG PO QHS . Sertraline Hcl (Zoloft) 50 Mg Tab 50 MG PO DAILY . Ziprasidone Hydrochloride (Geodon) 60 Mg Cap 60 MG PO BID Scheduled PRN (Ciclopirox Olamine) 0.77 % Cre 0.77 % EXT BID PRN PRN ATHLETES FOOT Acetaminophen (Acetaminophen) 325 Mg Tab 650 MG PO Q4H PRN PRN PAIN Artificial Tears (Artificial Tears) 1.4 % Paulina 1 DROP OU TID PRN PRN DRY EYES Docusate Sodium (Docusate Sodium) 100 Mg Cap 1-2 MG PO BID PRN PRN CONSTIPATION Fluticasone Propionate (Fluticasone Propionate 0.005%) 0.005 % Oin 0.005 % EXT BID PRN PRN PSORIASIS APPLIED TO ELBOWS Ibuprofen (Ibuprofen) 600 Mg Tab 600 MG PO Q6H PRN PRN PAIN Allergies Coded Allergies: Doxepin (Verified Allergy, Severe, SEIZURES, 11/26/12) Bupropion (Unverified Allergy, Unknown, "SPEEDS" UP, 10/12/16) Hydroxyzine (Verified Allergy, Unknown, 11/26/12) Chlorpromazine (Verified Adverse Reaction, Intermediate, EPS, 11/26/12) Thioridazine (Verified Adverse Reaction, Intermediate, EPS, 11/26/12) Trifluoperazine (Verified Adverse Reaction, Intermediate, EPS, 11/26/12) Meghan Tenorio Oct 13, 2016 12:18
--- NOTE | 2016-10-13 12:43 | HPEPDOC ---
[facility] History & Physical History and Physical DATE OF ADMISSION: Oct 12, 2016 at 23:05 CHIEF COMPLAINT: Patient states "I was short with people, flying off the handle ". Patient also reports she had suicidal ideation because she was angry. HISTORY OF THE PRESENT ILLNESS: Patient is a resident of [facility] housing services and goes to [facility] for her mental health needs. Patient states she self presented due to having suicidal ideation with a plan to cut herself. Patient reports she was thinking of cutting both of her wrists. Prior records report that patient does this when she does get angry. Patient states she was very upset with people in her housing unit. Patient also reported some kind of mobile crises that also aggravated the situation. Patient states she was feeling overwhelmed, angry. Patient also reports being fearful of another resident that was sneaking her boyfriend up to her apartment PAST PSYCHIATRIC HISTORY: Patient has 5 prior hospitalizations for psychiatric diagnoses between January 2013 and the present day. This is patient's sixth hospitalization in that time period. Patient also has a hospitalization for polysubstance abuse in October 2012. ALLERGIES: Please see below. HOME MEDICATIONS: Per record as follows: -BuSpar 15 mg every morning, 30 mg daily at bedtime -Sertraline 50 mg by mouth every morning -[place] 600 mg twice a day -Quetiapine 150 mg by mouth daily at bedtime -Ziprasidone 60 mg by mouth twice a day -Latuda 40 mg by mouth at 1800 PAST MEDICAL HISTORY: 1. Thyroid issue. 2. GERD 3. Sleep apnea 4. Arthritis of both knees and left hip FAMILY PSYCHIATRIC HISTORY: Patient reports her sister has depression. Patient also states she had a paternal aunt that was "really bad "and was institutionalized for most of her life, patient does not know why. SOCIAL HISTORY: Patient is a single, never , no kids female. Patient reports she has worked at [employer] and [employer]. Patient is currently on disability living in [facility] housing. Patient reports she has a sister and her mother is still alive and well. SUBSTANCE ABUSE HISTORY: Patient denies old records show that patient had a polysubstance abuse admission in October 2012 her drug test at that time tested positive for alcohol and amphetamines and cannabis. LEGAL HISTORY: Patient states she has been arrested for assault in the past and was put on probation. Patient denies any shelter or fdc times. Patient states she was last arrested greater than 10 years ago. VITAL SIGNS: Temperature 96.4, pulse 71, respiratory rate 18, blood pressure 127 /67. LABORATORY DATA: Please see below. UDS on admit was negative. MENTAL STATUS EXAMINATION: Patient is a 56 year old female, who is pleasant, somewhat cooperative, overweight, elderly appearing, of average build. Patient is ambulating with use of her walker with a steady gait. Patient is currently wearing hospital scrubs and T-shirt. Patient has average grooming. Speech: Is of normal rate, volume and articulation. Patient is coherent and spontaneous when she is awake. Patient dozed off several times during this assessment. Language skills are intact. Thought processes: Clear, not goal-directed. Thought content: Irrational, illogical, circumstantial. Abstract reasoning, and computation: Adequate. Associations: Circumstantial. Description of abnormal or psychotic thoughts: Patient denies delusions, obsessions, compulsions, preoccupations, paranoia. Patient also reports no homicidal or suicidal ideation. Patient denies any thoughts of a plan for suicide. Patient reports hearing voices but then states she isn't sure if it's voices or her own thoughts. Patient states she does worry about everyday problems and sometimes he gets "overwhelming". Judgment: Limited. Insight: Poor. Oriented to: Person, place, and surroundings and time. Recent and remote memory: Intact. Patient feels she sometimes has problems with her short-term memory. Attention span and concentration: Poor as patient continues to doze off. Language: Normal. Fund of knowledge: Adequate. Mood: Patient states "about the same as yesterday, a low, down feeling ". Provider reminded patient she hadn't seen her yesterday. Patient does not appear to be labile, agitated, depressed or anxious. Affect: Appropriate, flat, constricted, tired. DIAGNOSES: 1. Schizoaffective disorder, bipolar type. ASSESSMENT: Patient is a 56-year-old female who has multiple admissions to this unit. Patient again got angry and then had suicidal ideation of cutting both her wrists. Patient felt it would be best for her to come in and be evaluated. Patient states last admission was in June 2016 for very similar reasons. Patient appears to be tired. Patient does not appear to be depressed or anxious at present. Patient is not showing normal signs of someone experiencing auditory hallucinations. Patient does not complain about them disrupting her thoughts or her sleep. Patient reports she slept "not very good "last night. Patient reports she only slept 3 hours or so. Patient reports her baseline depression is 3/10, reports anxiety as "I don't know"/10. Patient currently states her depression as 5-6/10, anxiety is 4-5/10. Per prior record patient appears to come in frequently after altercations or arguments with her roommates or housing peers. PROBLEM LIST: 1. Ineffective coping 2. Poor impulse control. 3. Risk for aggression. MANAGEMENT PLAN: Patient to be continually assessed and evaluated. Maintain safety precautions. Patient to attend groups and participate in unit programming and activities to develop effective coping strategies. Patient to be engaged in discharge planning process to ensure safe and effective discharge plan. Patient to follow-up with primary care physician upon discharge. Patient to resume therapy and medication management services upon discharge. ESTIMATED LENGTH OF STAY: 7-10 DAYS. TIME SPENT EVALUATING AND COORDINATING INITIAL CARE: 50 minutes. Laboratory Data 24H Labs Laboratory Tests 2 10/12/16 15:07: Acetaminophen Level < 2.0L, Aspartate Amino Transf (AST/SGOT) 16, Alanine Aminotransferase (ALT/SGPT) 24, Alkaline Phosphatase 137H, Total Bilirubin 0.3, Direct Bilirubin < 0.1, Albumin 3.9, Albumin/Globulin Ratio 1.15, Anion Gap 6L, Calcium Level 9.2, Ethyl Alcohol Level < 0.003, Glomerular Filtration Rate > 60.0, [place] Level 0.91, Salicylates Level < 1.7L, Thyroid Stimulating Hormone (TSH) 3.120, Total Protein 7.3, Urine Amphetamine Level NEGATIVE, Urine Benzodiazepines Screen NEGATIVE, Urine Cannabinoids NEGATIVE, Urine Cocaine Metabolite NEGATIVE, Urine Opiates Screen NEGATIVE, Urine Barbiturates, Qualitative NEGATIVE, Urine Methadone Screen NEGATIVE, Urine Tricyclic Antidepressants NEGATIVE CBC/BMP Laboratory Tests 10/12/16 15:07 Red Blood Count 4.37, Mean Corpuscular Volume 90.1, Mean Corpuscular Hemoglobin 29.4, Mean Corpuscular Hemoglobin Concent 32.6, Red Cell Distribution Width 14.2 Medications Scheduled (Calcium/Vitamin D3 600-400 mg-Unit) 1 Tab Tab 1 TAB PO BID SUPPLEMENT (Reported ) (Ammonium Lactate) 12 % Cre 12 % EXT DAILY (Reported) APPLIED TO LEGS AND ARMS Aspirin (Aspirin 81) 81 Mg Tab 81 MG PO DAILY . (Reported) Buspirone HCl (Buspirone HCl) 15 Mg Tab 15 MG PO QAM ANXIETY (Reported) Buspirone HCl (Buspirone HCl) 30 Mg Tab 30 MG PO QHS ANXIETY (Reported) Cetirizine HCl (Zyrtec Allergy) 10 Mg Cap 10 MG PO DAILY ALLERGIES (Reported) Latanoprost (Latanoprost) 50 Drop/2.5 Ml Soln 1 DROP OU QHS GLAUCOMA (Reported) Levothyroxine Sodium (Synthroid) 50 Mcg Tab 50 MCG PO QAM . (Reported) [place] Carbonate ([place] Carbonate) 600 Mg Cap 600 MG PO BID MOOD (Reported) Lurasidone Hydrochloride (Latuda) 40 Mg Tab 40 MG PO QPM (Reported) Multivitamins *[facility] STOCKED* (Thera M Plus *[facility] STOCKED*) 1 Tab Tab 1 TAB PO DAILY (Reported) SUPPLEMENT Omeprazole (Omeprazole) 40 Mg Cap 40 MG PO DAILY (Reported) Quetiapine Fumerate (Seroquel) 100 Mg Tab 150 MG PO QHS . (Reported) Sertraline Hcl (Zoloft) 50 Mg Tab 50 MG PO DAILY . (Reported) Ziprasidone Hydrochloride (Geodon) 60 Mg Cap 60 MG PO BID (Reported) Scheduled PRN (Ciclopirox Olamine) 0.77 % Cre 0.77 % EXT BID PRN PRN ATHLETES FOOT (Reported) Acetaminophen (Acetaminophen) 325 Mg Tab 650 MG PO Q4H PRN PRN PAIN (Reported) Artificial Tears (Artificial Tears) 1.4 % [place] 1 DROP OU TID PRN PRN DRY EYES ( Reported) Docusate Sodium (Docusate Sodium) 100 Mg Cap 1-2 MG PO BID PRN PRN CONSTIPATION (Reported) Fluticasone Propionate (Fluticasone Propionate 0.005%) 0.005 % Oin 0.005 % EXT BID PRN PRN PSORIASIS (Reported) APPLIED TO ELBOWS Ibuprofen (Ibuprofen) 600 Mg Tab 600 MG PO Q6H PRN PRN PAIN (Reported) Allergies Coded Allergies: Doxepin (Verified Allergy, Severe, SEIZURES, 11/26/12) Bupropion (Unverified Allergy, Unknown, "SPEEDS" UP, 10/12/16) Hydroxyzine (Verified Allergy, Unknown, 11/26/12) Chlorpromazine (Verified Adverse Reaction, Intermediate, EPS, 11/26/12) Thioridazine (Verified Adverse Reaction, Intermediate, EPS, 11/26/12) Trifluoperazine (Verified Adverse Reaction, Intermediate, EPS, 11/26/12) PATRICIA ODELL NP Oct 13, 2016 12:43
[2016-10-13 18:00] VITALS: BP 148/82
[2016-10-13] MEDS: busPIRone 5 MG TAB PO SCH (20:15)
[2016-10-13] MEDS ORDERED: LITHIUM CARBONATE 300 MG CAP PO SCH (21:00)
[2016-10-13] MEDS: QUEtiapine FUMARATE 100 MG TAB PO SCH (21:33)
[2016-10-14] MEDS: LEVOTHYROXINE 0.05 MG TAB (50 MCG) PO SCH (06:06)
[2016-10-14 06:23] VITALS: BP 138/75
[2016-10-14] MEDS: OMEPRAZOLE 20 MG CAP PO SCH (08:48)
[2016-10-14] MEDS: busPIRone 5 MG TAB PO SCH (08:48)
[2016-10-14] MEDS: ASPIRIN 81 MG ENTERIC TAB PO SCH (08:49)
[2016-10-14] MEDS: CETIRIZINE (ZyrTEC) 10 MG TAB PO SCH (08:49)
[2016-10-14] MEDS: DOCUSATE SODIUM 100 MG CAP PO SCH ×2 (08:49→21:12)
[2016-10-14] MEDS: SERTRALINE HCL 50 MG TAB PO SCH (08:49)
[2016-10-14] MEDS: OLANZapine 5 MG TAB PO SCH (08:49)
[2016-10-14] MEDS: LITHIUM CARBONATE 300 MG CAP PO SCH ×2 (08:49→21:12)
[2016-10-14] MEDS: CALCIUM/VITAMIN D 500 MG TAB PO SCH ×2 (08:49→21:11)
[2016-10-14] MEDS: IBUPROFEN 600 MG TAB PO PRN ×2 (08:50→15:24)
[2016-10-14] MEDS: POLYVINYL ALCOHOL OPHTH SOLN 15 ML(LIQUITEARS) OU PRN (08:55)
[2016-10-14] MEDS: MOM 30ML SUSPENSION UDC PO PRN (12:41)
--- NOTE | 2016-10-14 13:20 | IPNPDOC ---
[facility] Progress Note Progress Note DATE OF SERVICE: 10/14/16 HISTORY: Patient states "I was short with people, flying off the handle ". Patient also reports she had suicidal ideation because she was angry. Patient is a resident of [facility] housing services and goes to [facility] for her mental health needs. Patient states she self presented due to having suicidal ideation with a plan to cut herself. Patient reports she was thinking of cutting both of her wrists. Prior records report that patient does this when she does get angry. Patient states she was very upset with people in her housing unit. Patient also reported some kind of mobile crises that also aggravated the situation. Patient states she was feeling overwhelmed, angry. Patient also reports being fearful of another resident that was sneaking her boyfriend up to her apartment PAST PSYCHIATRIC HISTORY: Patient has 5 prior hospitalizations for psychiatric diagnoses between January 2013 and this present admit. This is patient's sixth hospitalization in that time period. Patient also has a hospitalization for polysubstance abuse in October 2012. ALLERGIES: Please see below. HOME MEDICATIONS: Per record as follows: -BuSpar 15 mg every morning, 30 mg daily at bedtime -Sertraline 50 mg by mouth every morning -Arjay 600 mg twice a day -Quetiapine 150 mg by mouth daily at bedtime -Ziprasidone 60 mg by mouth twice a day -Latuda 40 mg by mouth at 1800 PAST MEDICAL HISTORY: 1. Thyroid issue. 2. GERD 3. Sleep apnea 4. Arthritis of both knees and left hip FAMILY PSYCHIATRIC HISTORY: Patient reports her sister has depression. Patient also states she had a paternal aunt that was "really bad "and was institutionalized for most of her life, patient does not know why. SOCIAL HISTORY: Patient is a single, never , no kids female. Patient reports she has worked at [employer] and [employer]. Patient is currently on disability living in [facility]. Patient reports she has a sister and her mother is still alive and well. SUBSTANCE ABUSE HISTORY: Patient denies old records show that patient had a polysubstance abuse admission in October 2012 her drug test at that time tested positive for alcohol and amphetamines and cannabis. LEGAL HISTORY: Patient states she has been arrested for assault in the past and was put on probation. Patient denies any residential or fci times. Patient states she was last arrested greater than 10 years ago. VITAL SIGNS: Temperature 99.5, pulse 74, respiratory rate 20, blood pressure 138 /75. LABORATORY DATA: Please see below. UDS on admit was negative. CURRENT MEDICATIONS: See below. Arjay 300 mg po q am, 900 mg po qhs for mood stabilization, Quetiapine 300 mg po qhs for mood stabilization/decrease in psychotic symptoms, zyprexa 5 mg po q am for linwood/schizophrenia, sertraline 50 mg po q am for depression, seroquel 12.5 mg po q 6h prn for Agitation/anxiety/ AH. To consider abilify if no resolution of symptoms. MENTAL STATUS EXAMINATION: Patient is a 56 year old female, who is pleasant, somewhat cooperative, overweight, elderly appearing, of average build. Patient is ambulating with use of her walker with a steady gait. Patient is currently wearing her own clothing. Patient has average grooming. Pt. is very negative and argumentative today. Pt. appears to have more of a behavioral issue today. Speech: Is of normal rate, volume and articulation. Patient is coherent and spontaneous. Patient is awake and appropriate during this assessment. Language: Intact. Thought processes: Clear, goal-directed. Thought content: Irrational at times, illogical at times, circumstantial. Brief periods of lucidity. Abstract reasoning, and computation: Adequate. Associations: Circumstantial. Description of abnormal or psychotic thoughts: Patient denies delusions, obsessions, compulsions, preoccupations. Patient also reports no suicidal ideation. Patient denies any thoughts of a plan for suicide. Pt. reports "I have had thoughts of hurting others like hitting them up side the head, I'd not do it". Pt. denies any visual hallucinations. Patient reports hearing voices that "talk to me about killing myself". Patient states she does worry about everyday problems and sometimes she gets "overwhelmed". Pt. appears to have paranoia in that she feels the staff and other patients are "looking at me funny ". Judgment: Limited. Insight: Poor. Oriented to: Person, place, and surroundings and time. Recent and remote memory: Intact. Patient feels she sometimes has problems with her short-term memory. Pt. states "I have trouble remembering". Attention span and concentration: Fair. Language: Normal. Fund of knowledge: Adequate. Mood: Patient states again "about the same as yesterday", pt. does not elaborate any further. Patient does not appear to be labile, depressed or anxious. Pt. is noted to be somewhat agitated. Affect: Appropriate, flat, constricted, agitates easily and then is tangential about nothing that is a realistic issue. . DIAGNOSES: 1. Schizoaffective disorder. ASSESSMENT: Patient is a 56-year-old female who has multiple admissions to this unit. Patient again got angry and then had suicidal ideation of cutting both her wrists. Patient felt it would be best for her to come in and be evaluated. Patient states last admission was in June 2016 for very similar reasons. Patient appears to be agitated today. Patient does not appear to be depressed or anxious at present. Patient is not showing normal signs of someone experiencing auditory hallucinations. Patient does not complain about them disrupting her thoughts or her sleep. Pt. does report that "I worry about every little thing, even if it doesn't matter". Patient reports she slept "but kept waking up " last night. Patient reports she did sleep 8 hours after stating "I don't know". Patient reports her baseline depression is 3/10, reports anxiety as "I don't know"/10. Patient currently states her depression as 4-5/10, anxiety is 3-4/10. Per prior record patient appears to come in frequently after altercations or arguments with her roommates or housing peers. MANAGEMENT PLAN: Patient to be continually assessed and evaluated. Maintain safety precautions. Medications to be changed in effort to decrease symptoms. Patient to attend groups and participate in unit programming and activities to develop effective coping strategies. Patient to be engaged in discharge planning process to ensure safe and effective discharge plan. Patient to follow- up with primary care physician upon discharge. Patient to resume therapy and medication management services upon discharge. TIME SPENT: 25 minutes. Vital Signs Vital Signs Date Time Temp Pulse Resp B/P Pulse Ox O2 Delivery O2 Flow Rate FiO2 10/14/16 06:23 99.5 74 20 138/75 10/12/16 23:05 96 Room Air Current Medications Current Medications Acetaminophen (Tylenol Tab) 650 mg Q4HP PRN PO PAIN / FEVER; Start 10/13/16 at 00:30; Stop 11/12/16 at 00:29 Al Hydrox/Mg Hydrox/Simethicone (Mylanta) 30 ml Q4HP PRN PO HEARTBURN/ INDIGESTION; Start 10/13/16 at 00:30; Stop 11/12/16 at 00:29 Artificial Tears (Akwa Tears) 1 drop TIDP PRN OU DRY EYES Last administered on 10/14/16 08:55; Start 10/13/16 at 00:30; Stop 11/12/16 at 00:29 Aspirin (Ecotrin) 81 mg DAILY PO Last administered on 10/14/16 08:49; Start at 09:00; Stop 11/12/16 at 08:59 Buspirone HCl (Buspar) 15 mg BID PO Last administered on 10/14/16 08:48; Start 10/13/16 at 21:00; Stop 11/12/16 at 20:59 Buspirone HCl (Buspar) 15 mg QAM PO Last administered on 10/13/16 08:32; Start 10/13/16 at 09:00; Stop 10/13/16 at 13:05; Status DC Buspirone HCl (Buspar) 30 mg QHS PO Last administered on 10/13/16 01:42; Start 10/12/16 at 21:00; Stop 10/13/16 at 13:05; Status DC Calcium/Vitamin D (Oscal D) 500 mg BID PO Last administered on 10/14/16 08:49 ; Start 10/12/16 at 21:00; Stop 11/11/16 at 20:59 Cetirizine HCl (ZyrTEC) 10 mg DAILY PO Last administered on 10/14/16 08:49; Start 10/13/16 at 09:00; Stop 11/12/16 at 08:59 Docusate Sodium (Colace) 100 mg BID PO Last administered on 10/14/16 08:49; Start 10/12/16 at 21:00; Stop 11/11/16 at 20:59 Fluticasone Propionate (Cutivate 0.05%) Psoriasis Elbows BIDP PRN TOP RASH/ ITCHING; Start 10/13/16 at 00:45; Stop 11/12/16 at 00:44 Home Med (Med Rec Complete!) ASDIRECTED XX ; Start 10/12/16 at 19:15; Stop at 19:20; Status DC Ibuprofen (Advil) 600 mg Q6HP PRN PO PAIN Last administered on 10/13/16 21:34 ; Start 10/13/16 at 00:30; Stop 10/13/16 at 23:28; Status DC Ibuprofen (Advil) 600 mg Q6HP PRN PO MODERATE PAIN (PS 5-7) Last administered on 10/14/16 08:50; Start 10/13/16 at 23:30; Stop 11/12/16 at 23:29 Latanoprost (Xalatan 0.005% Op Soln) 1 drop QHS OU Last administered on 20:16; Start 10/12/16 at 21:00; Stop 11/11/16 at 20:59 Levothyroxine Sodium (Synthroid) 0.05 mg DAILY@06 PO Last administered on 06:06; Start 10/13/16 at 06:00; Stop 11/12/16 at 05:59 Arjay Carbonate (Arjay Carbonate) 300 mg QAM PO Last administered on 08:49; Start 10/14/16 at 09:00; Stop 11/13/16 at 08:59 Arjay Carbonate (Arjay Carbonate) 600 mg BID PO Last administered on 08:31; Start 10/12/16 at 21:00; Stop 10/13/16 at 13:05; Status DC Arjay Carbonate (Arjay Carbonate) 900 mg QPM PO Last administered on 20:15; Start 10/13/16 at 21:00; Stop 11/12/16 at 20:59 Lurasidone HCl (Latuda) 40 mg DAILY@18 PO ; Start 10/12/16 at 18:00; Stop at 13:05; Status DC Magnesium Hydroxide (Milk Of Magnesia) 30 ml DAILYPRN PRN PO CONSTIPATION Last administered on 10/14/16 12:41; Start 10/13/16 at 00:30; Stop 11/12/16 at 00:29 Olanzapine (ZyPREXA) 5 mg QAM PO Last administered on 10/14/16 08:49; Start at 09:00; Stop 11/13/16 at 08:59 Omeprazole (PriLOSEC) 40 mg DAILY PO Last administered on 10/14/16 08:48; Start 10/13/16 at 09:00; Stop 11/12/16 at 08:59 Quetiapine Fumarate (SEROquel) 150 mg QHS PO Last administered on 10/13/16 01: 41; Start 10/12/16 at 21:00; Stop 10/13/16 at 13:05; Status DC Quetiapine Fumarate (SEROquel) 300 mg QHS PO Last administered on 10/13/16 21: 33; Start 10/13/16 at 21:00; Stop 11/12/16 at 20:59 Sertraline HCl (Zoloft) 50 mg DAILY PO Last administered on 10/14/16 08:49; Start 10/13/16 at 09:00; Stop 11/12/16 at 08:59 Ziprasidone (Geodon) 60 mg BID PO Last administered on 10/13/16 08:30; Start 10/12/16 at 21:00; Stop 10/13/16 at 13:05; Status DC Allergies Coded Allergies: Doxepin (Verified Allergy, Severe, SEIZURES, 11/26/12) Bupropion (Unverified Allergy, Unknown, "SPEEDS" UP, 10/12/16) Hydroxyzine (Verified Allergy, Unknown, 11/26/12) Chlorpromazine (Verified Adverse Reaction, Intermediate, EPS, 11/26/12) Thioridazine (Verified Adverse Reaction, Intermediate, EPS, 11/26/12) Trifluoperazine (Verified Adverse Reaction, Intermediate, EPS, 11/26/12) PATRICIA ODELL NP Oct 14, 2016 13:20
[2016-10-14] MEDS: QUEtiapine FUMARATE 12.5 MG HALF-TAB PO PRN (16:19)
[2016-10-14 18:00] VITALS: BP 156/68
[2016-10-14] MEDS: LATANOPROST 0.005% OPHTH SOLN 2.5 ML OU SCH (21:12)
[2016-10-14] MEDS: QUEtiapine FUMARATE 100 MG TAB PO SCH (21:39)
--- NOTE | 2016-10-14 23:57 | EDDOCDS ---
Physician Documentation [facility] Name: Tati Sevilla Age: 56 yrs Sex: Female : 1960 Arrival Date: 10/12/2016 Time: 13:[address] MD: Jose Sims [place] Disposition: 10/12/16 18:29 Hospitalization ordered by Aristeo Santiago for Inpatient Admission. Preliminary diagnosis is Schizoaffective disorder, bipolar type. - Bed requested for Admit. - Status is Inpatient Admission. sls1 - Condition is Stable. - Problem is new. - Symptoms are unchanged. Historical: - Allergies: Meclizine; Stelazine; thorazine; Wellbutrin; - Home Meds: 1. aspirin 81 mg Oral tab once daily 2. Multivitamin Oral 1 tab daily 3. refresh tears 2 drops in both eyes daily twice a day 4. levothyroxine 50 mcg Oral tab 1 tab once daily 5. Zoloft 50 mg Oral tab 1 tab once daily 6. omeprazole 40 mg Oral cpDR 1 cap once daily 7. Seroquel 150mg Oral tab 1 tab HS 8. hydrocortisone 0.5 % Topical crea once daily 9. BuSpar 30 mg Oral tab 0.5 tab daily 10. BuSpar 30 mg Oral tab 1 tab nightly 11. Zyrtec 10 mg Oral tab 1 tab once daily 12. Geodon 60 mg Oral cap 1 cap 2 times per day 13. Latuda 40 mg oral tab 1 tab once daily 14. cacium/Vitamin D 600/400 twice a day 15. latanoprost solution 1 drop in each eye at night nightly 16. lithium carbonate 600 mg Oral cap nightly 17. Docusate Sodium 1-2 pills twice/day as needed Oral 18. triamcinolone acetonide 0.1 % Topical crea 2 times per day as needed 19. Nystatin ointment twice/day as needed 20. nystatin 100,000 unit/gram Topical powd 2 times per day as needed 21. Tylenol 325 mg Oral tab 2 tabs every 4-6 hours as need 22. fluticasone 0.05 % topical lotn once daily as needed 23. ciclopirox 0.77 % topical crea 2 times per day as needed 24. ibuprofen 600 mg Oral tab 1 tab every 6 hours as needed - PMHx: Anxiety Disorder; Depression; GERD; Hypothyroidism; Schizo-Affective Disorder; Sleep Apnea w/ CPAP; - PSHx: Colonoscopy; Breast biopsy- Left; Tonsillectomy; - Social history: Smoking status: Patient states was never smoker of tobacco. No barriers to communication noted, The patient speaks fluent Frisian, Speaks appropriately for age. - Family history: Not pertinent. - : The pt / caregiver states he / she is not on anticoagulants. Home medication list is obtained from the patient. - Exposure Risk Screening:: None identified. Vital Signs: 10/12 13:55 BP 136 / 70; Pulse 83; Resp 18 S; Temp 96.9(O); Pulse Ox 98% on R/A; Weight 105.23 kg / gr2 231.99 lbs (R); Height 5 ft. 3 in. (160.02 cm) (R); Pain 2/10; 22:34 BP 143 / 69; Pulse 79; Resp 18; Temp 98.7(T); Pulse Ox 96% ; Pain 0/10; mas 13:55 Body Mass Index 41.10 (105.23 kg, 160.02 cm) gr2 MDM: 14:14 Consult PFS/PSA/Formulator ordered. br1 14:14 Consult PFS/PSA/Formulator: Patient's case requires discussion with on-call br1 Psychiatrist ordered. 14:14 PSA/PFS to call Nursing Medical Assisting Instructor, to enter patient data on [place] Safe [place] if patient br1 involuntarily admitted or transferred for SI or HI ordered. 14:14 Confirm accurate psychiatric medication list and times of last dosage ordered. br1 14:14 Detain Pt Until Medically/PFS Cleared ordered. br1 14:16 Acetaminophen Level Ordered. EDMS 14:16 Basic Metabolic Profile Ordered. EDMS 14:16 Complete Blood Count Ordered. EDMS 14:16 Drug Eval Toxicology ED Only Ordered. EDMS 14:16 Ethyl Alcohol (ethanol) Ordered. EDMS 14:16 Liver Profile Ordered. EDMS 14:16 Salicylate Level Ordered. EDMS 14:16 Thyroid Stimulating Hormone Ordered. EDMS 15:16 LITHIUM LEVEL Ordered. EDMS 16:16 Acetaminophen Level Reviewed. br1 16:16 Basic Metabolic Profile Reviewed. br1 16:16 Liver Profile Reviewed. br1 16:16 Salicylate Level Reviewed. br1 16:16 Complete Blood Count Reviewed. br1 16:16 Drug Eval Toxicology ED Only Reviewed. br1 16:16 Ethyl Alcohol (ethanol) Reviewed. br1 16:16 Thyroid Stimulating Hormone Reviewed. br1 16:16 LITHIUM LEVEL Reviewed. br1 16:17 Consult PFS/PSA/Socail Worker: Cleared medically for eval ordered. br1 16:33 REGULAR DIET PLASTIC YOST+DIET ordered. EDMS 16:47 Consult PFS/PSA/Socail Worker: Cleared medically for eval complete. ca 16:47 Financial registration complete. gjb 16:47 Consult PFS/PSA/Formulator complete. ca 16:47 Consult PFS/PSA/Formulator: Patient's case requires discussion with on-call ca Psychiatrist complete. 16:47 PSA/PFS to call Nursing Medical Assisting Instructor, to enter patient data [place] Safe [place] if patient ca involuntarily admitted or transferred for SI or HI complete. 17:14 [facility] Payment Agreement was scanned into [employer] and attached to record. gjb 17:46 Admit to IMHU: ordered. EDMS 18:12 REGULAR DIET ordered. EDMS 18:33 M[facility] Legal paperwork was scanned into [employer] and attached to record. [facility] 10/13 12:59 T-Sheet-- Draft Copy was scanned into [employer] and attached to record. gb Signatures: Dispatcher [employer] EDMS Cammy Grant, PSA PSA ca Yu Roman, Reg Reg gb Ruben, Red Malik, RN RN mlb1 Naty Jauregui, PSA PSA ml4 Marcus Cruz MD MD br1 Jacquelyn Aguilar, RN RN sls1 Beba Lopez [facility] The chart was reviewed and I authenticate all verbal orders and agree with the evaluation and treatment provided.Corrections: (The following items were deleted from the chart) 10/12 15:15 14:16 LITHIUM LEVEL+LAB ordered. EDMS EDMS Attachments: 17:14 [facility] Payment Agreement gjb 10/13 12:59 T-Sheet-- Draft Copy gb Chart Complete MTDD
--- NOTE | 2016-10-14 23:57 | EDDOCDS ---
Physician Documentation [facility] Name: Tati Sevilla Age: 56 yrs Sex: Female : 1960 Arrival Date: 10/12/2016 Time: 13:[address] MD: Jose Sims [place] Disposition: 10/12/16 18:29 Hospitalization ordered by Aristeo Santiago for Inpatient Admission. Preliminary diagnosis is Schizoaffective disorder, bipolar type. - Bed requested for Admit. - Status is Inpatient Admission. sls1 - Condition is Stable. - Problem is new. - Symptoms are unchanged. Historical: - Allergies: Meclizine; Stelazine; thorazine; Wellbutrin; - Home Meds: 1. aspirin 81 mg Oral tab once daily 2. Multivitamin Oral 1 tab daily 3. refresh tears 2 drops in both eyes daily twice a day 4. levothyroxine 50 mcg Oral tab 1 tab once daily 5. Zoloft 50 mg Oral tab 1 tab once daily 6. omeprazole 40 mg Oral cpDR 1 cap once daily 7. Seroquel 150mg Oral tab 1 tab HS 8. hydrocortisone 0.5 % Topical crea once daily 9. BuSpar 30 mg Oral tab 0.5 tab daily 10. BuSpar 30 mg Oral tab 1 tab nightly 11. Zyrtec 10 mg Oral tab 1 tab once daily 12. Geodon 60 mg Oral cap 1 cap 2 times per day 13. Latuda 40 mg oral tab 1 tab once daily 14. cacium/Vitamin D 600/400 twice a day 15. latanoprost solution 1 drop in each eye at night nightly 16. lithium carbonate 600 mg Oral cap nightly 17. Docusate Sodium 1-2 pills twice/day as needed Oral 18. triamcinolone acetonide 0.1 % Topical crea 2 times per day as needed 19. Nystatin ointment twice/day as needed 20. nystatin 100,000 unit/gram Topical powd 2 times per day as needed 21. Tylenol 325 mg Oral tab 2 tabs every 4-6 hours as need 22. fluticasone 0.05 % topical lotn once daily as needed 23. ciclopirox 0.77 % topical crea 2 times per day as needed 24. ibuprofen 600 mg Oral tab 1 tab every 6 hours as needed - PMHx: Anxiety Disorder; Depression; GERD; Hypothyroidism; Schizo-Affective Disorder; Sleep Apnea w/ CPAP; - PSHx: Colonoscopy; Breast biopsy- Left; Tonsillectomy; - Social history: Smoking status: Patient states was never smoker of tobacco. No barriers to communication noted, The patient speaks fluent Kazakh, Speaks appropriately for age. - Family history: Not pertinent. - : The pt / caregiver states he / she is not on anticoagulants. Home medication list is obtained from the patient. - Exposure Risk Screening:: None identified. Vital Signs: 10/12 13:55 BP 136 / 70; Pulse 83; Resp 18 S; Temp 96.9(O); Pulse Ox 98% on R/A; Weight 105.23 kg / gr2 231.99 lbs (R); Height 5 ft. 3 in. (160.02 cm) (R); Pain 2/10; 22:34 BP 143 / 69; Pulse 79; Resp 18; Temp 98.7(T); Pulse Ox 96% ; Pain 0/10; mas 13:55 Body Mass Index 41.10 (105.23 kg, 160.02 cm) gr2 MDM: 14:14 Consult PFS/PSA/Clerk Specialist ordered. br1 14:14 Consult PFS/PSA/Clerk Specialist: Patient's case requires discussion with on-call br1 Psychiatrist ordered. 14:14 PSA/PFS to call Nursing Paint Roller Assembler, to [place] if patient br1 involuntarily admitted or transferred for SI or HI ordered. 14:14 Confirm accurate psychiatric medication list and times of last dosage ordered. br1 14:14 Detain Pt Until Medically/PFS Cleared ordered. br1 14:16 Acetaminophen Level Ordered. EDMS 14:16 Basic Metabolic Profile Ordered. EDMS 14:16 Complete Blood Count Ordered. EDMS 14:16 Drug Eval Toxicology ED Only Ordered. EDMS 14:16 Ethyl Alcohol (ethanol) Ordered. EDMS 14:16 Liver Profile Ordered. EDMS 14:16 Salicylate Level Ordered. EDMS 14:16 Thyroid Stimulating Hormone Ordered. EDMS 15:16 LITHIUM LEVEL Ordered. EDMS 16:16 Acetaminophen Level Reviewed. br1 16:16 Basic Metabolic Profile Reviewed. br1 16:16 Liver Profile Reviewed. br1 16:16 Salicylate Level Reviewed. br1 16:16 Complete Blood Count Reviewed. br1 16:16 Drug Eval Toxicology ED Only Reviewed. br1 16:16 Ethyl Alcohol (ethanol) Reviewed. br1 16:16 Thyroid Stimulating Hormone Reviewed. br1 16:16 LITHIUM LEVEL Reviewed. br1 16:17 Consult PFS/PSA/Socail Worker: Cleared medically for eval ordered. br1 16:33 REGULAR DIET PLASTIC YOST+DIET ordered. EDMS 16:47 Consult PFS/PSA/Socail Worker: Cleared medically for eval complete. ca 16:47 Financial registration complete. gjb 16:47 Consult PFS/PSA/Clerk Specialist complete. ca 16:47 Consult PFS/PSA/Clerk Specialist: Patient's case requires discussion with on-call ca Psychiatrist complete. 16:47 PSA/PFS to call Nursing Paint Roller Assembler, to enter [place] if patient ca involuntarily admitted or transferred for SI or HI complete. 17:14 [facility] Payment Agreement was scanned into [employer] and attached to record. gjb 17:46 Admit to IMHU: ordered. EDMS 18:12 REGULAR DIET ordered. EDMS 18:33 MHE Legal paperwork was scanned into [employer] and attached to record. [facility] 10/13 12:59 T-Sheet-- Draft Copy was scanned into [employer] and attached to record. gb Signatures: Dispatcher [employer] EDMS Cammy Grant, PSA PSA ca Yu Roman, Reg Reg gb Ruben, Red Malik, RN RN mlb1 Naty Jauregui, PSA PSA ml4 Marcus Cruz MD MD br1 Jacquelyn Aguilar, RN RN sls1 Beba Lopez [facility] The chart was reviewed and I authenticate all verbal orders and agree with the evaluation and treatment provided.Corrections: (The following items were deleted from the chart) 10/12 15:15 14:16 LITHIUM LEVEL+LAB ordered. EDMS EDMS Attachments: 17:14 [facility] Payment Agreement gjb 10/13 12:59 T-Sheet-- Draft Copy gb Chart Complete MTDD
--- NOTE | 2016-10-14 23:57 | EDDOCDS ---
Nurse's Notes [facility] Name: Tati Sevilla Age: 56 yrs Sex: Female : 1960 Arrival Date: 10/12/2016 Time: 13:54 Bed [facility] Private MD: Jose Sims [place] Diagnosis: Schizoaffective disorder, bipolar type Presentation: 10/12 14:00 Presenting complaint: Patient states: Very irritable, thoughts of hurting self and mlb1 audible halucinations. Mental Health Triage Level: Level 2: The patient displays active suicidal ideations. Adult Sepsis Screening: The patient does not have new or worsening altered mentation. Patient's respiratory rate is less than 22. Systolic blood pressure is greater than 100. Patient has a qSOFA score of 0- Negative Sepsis Screen. Suicide/Homicide risk assessment- The patient admits to and/or has been reported to be having suicidal ideations. The patient reports that he/she has not been admitted to an inpatient mental health facility in the last 30 days. The patient reports that he/she does not have a recent or current history of substance abuse. The patient reports that he/she has a prior history of suicide attempt and/or organized plan. The patient reports that he/she has not experienced a significant life altering event in the last 30 days. The patient reports that he/she has adequate social support. Status: Patient is not a patient financial services specialist or dependent. Transition of care: patient was not received from another setting of care. 14:00 Acuity: DARIO Level 3 mlb1 14:00 Method Of Arrival: Walkin/Carried/Asstd mlb1 Triage Assessment: 14:11 General: Appears in no apparent distress, Behavior is appropriate for age, cooperative. mlb1 Pain: Denies pain. Pt Declines HIV testing. Historical: - Allergies: Meclizine; Stelazine; thorazine; Wellbutrin; - Home Meds: 1. aspirin 81 mg Oral tab once daily 2. Multivitamin Oral 1 tab daily 3. refresh tears 2 drops in both eyes daily twice a day 4. levothyroxine 50 mcg Oral tab 1 tab once daily 5. Zoloft 50 mg Oral tab 1 tab once daily 6. omeprazole 40 mg Oral cpDR 1 cap once daily 7. Seroquel 150mg Oral tab 1 tab HS 8. hydrocortisone 0.5 % Topical crea once daily 9. BuSpar 30 mg Oral tab 0.5 tab daily 10. BuSpar 30 mg Oral tab 1 tab nightly 11. Zyrtec 10 mg Oral tab 1 tab once daily 12. Geodon 60 mg Oral cap 1 cap 2 times per day 13. Latuda 40 mg oral tab 1 tab once daily 14. cacium/Vitamin D 600/400 twice a day 15. latanoprost solution 1 drop in each eye at night nightly 16. lithium carbonate 600 mg Oral cap nightly 17. Docusate Sodium 1-2 pills twice/day as needed Oral 18. triamcinolone acetonide 0.1 % Topical crea 2 times per day as needed 19. Nystatin ointment twice/day as needed 20. nystatin 100,000 unit/gram Topical powd 2 times per day as needed 21. Tylenol 325 mg Oral tab 2 tabs every 4-6 hours as need 22. fluticasone 0.05 % topical lotn once daily as needed 23. ciclopirox 0.77 % topical crea 2 times per day as needed 24. ibuprofen 600 mg Oral tab 1 tab every 6 hours as needed - PMHx: Anxiety Disorder; Depression; GERD; Hypothyroidism; Schizo-Affective Disorder; Sleep Apnea w/ CPAP; - PSHx: Colonoscopy; Breast biopsy- Left; Tonsillectomy; - Social history: Smoking status: Patient states was never smoker of tobacco. No barriers to communication noted, The patient speaks fluent Faroese, Speaks appropriately for age. - Family history: Not pertinent. - : The pt / caregiver states he / she is not on anticoagulants. Home medication list is obtained from the patient. - Exposure Risk Screening:: None identified. Screenin:12 Screening information is obtained from the patient. Fall risk: No risks identified. jo3 Assistance ADL's: requires no assistance with activities of daily living. Abuse/DV Screen: The patient / caregiver reports he/she is: not in a situation that causes fear, pain or injury. Nutritional screening: No deficits noted. Advance Directives: There is no active DNR order. home support is adequate. Assessment: 20:10 General: Appears in no apparent distress, comfortable, Behavior is appropriate for age, jo3 cooperative, pleasant. General: First contact with pt. Resting on stretcher in state of comfort. Awaiting admission to [facility]. Aware of plan of care. Security observing . Neurological: Level of Consciousness is awake, alert, Oriented to person, place, time. Cardiovascular: No deficits noted. Respiratory: Airway is patent Respiratory effort is even, unlabored. Derm: Skin is pink, warm & dry. 22:45 General: Appears in no apparent distress, Behavior is appropriate for age, cooperative. sls1 Neurological: No deficits noted. Respiratory: No deficits noted. Mental Health Eval: 15:32 Mental health consult is initiated at 15:33. Status: The patient is not a md patient financial services specialist or dependent. 16:05 [facility] Behavioral Health: The patient is not an established patient of [facility] Behavioral md Health. Referral Information: Evaluation referral is generated by the patient's therapist Rowan Mary at [facility]. The patient was referred for evaluation because Pt having increasing episodes of anger outbursts and SI. Subjective: The patients chief complaint is Pt states she saw counselor and was brought to ED due to thoughts of cutting her wrists, which take place mostly during her anger outbursts. Pt also reports punching the chowdhury, yelling and screaming and having verbal fights with friends in her apt. Pt hearing "a voice inside my head" telling her to "do things" but is unsure if this is actually an AH. . Delusions are denied. Patient's mood is depressed, Auditory Hallucinations are reported by the patient. Command hallucinations are reported by the patient. Pt reports frequent concerns about people she is close to, and is upset that she continues to have arguments with them. Pt says she does not understand the source of her anger, only that it is getting worse every day. Pt is unsure if she will harm self at this time, stating she only gets that was when she is angry, but that is every day. Pt called the crisis line yesterday and threatened to cut her wrists, then said it was only because she was angry. Pt resides in the [facility] apt program but has been considering asking for placement in the community residence due to her decompensation. Mental Health history: Schizoaffective D/O. Mental Health Admissions: Multiple, most recently at [facility] 07/13 Current Outpatient Mental Health Services: Psychiatrist / Agency: Dr Elizondo at [facility]. Therapist / Agency: Rowan Morel at [facility]. Current living environment is Family / Home Support: Pt has inadequate supports The patient currently lives in a [facility] apartment. The patient is single. Patient presents to Emergency Department with the following symptoms within the past 2 weeks: anger, antisocial behavior, depressed mood, poor impulse control, relational problem, sleep disturbance - erratic suicidal ideation with plan for cutting. Substance abuse: Pt denies. Mental status exam: Patients appearance is appropriate, Patient's behavior is cooperative, Speech is normal. Affect is appropriate. Mood is depressed. Auditory Hallucinations are reported by the patient. Appetite is erratic Memory is good. Energy level is normal. Content of thought is Depression Thought process is intact. Cognitive level is oriented to person, place, time and situation Patient's insight is fair. Judgement is poor. Rapport with interviewer is good. Suicidal Ideation present with a plan to kill self by cutting. Homicidal ideation is denied. Disposition: Medically cleared for disposition by Marcus Cruz MD. 17:18 Disposition: Psychiatric Consult is performed by phone with Dr Aristeo Santiago MD. [facility] ca Admission Criteria: The patient is experiencing suicidal ideation. The patient displays symptoms of severe psychiatric disorder resulting in disordered behavior and significant interference with his / her ability to maintain self care. Psychomotor Retardation. anger outbursts. 17:59 [facility] Admission Criteria: The patient requires continuous observation and/or control to ca protect self, others or property. The patient's care requires a multi-modal treatment plan under close supervision and coordination due to the complexity and severity of the patient's symptoms. The patient requires administration and monitoring of psychoactive medications by skilled medical providers due to the side effects of the psychoactive medications or significant dosage adjustments. Legal Status: Patient's legal status will be Emergency admission: . [place] Safe Act: [place] Safe Act is applicable to this patient. The patient poses a risk to self or other and the Nursing Telecommunications Repairer has been notified. He/She will enter the patient's data. DSM-V Differential Diagnosis: Schizoaffective Disorder (F25.0) bipolar type (F25.0). Awaiting: transfer to [facility]. Vital Signs: 13:55 BP 136 / 70; Pulse 83; Resp 18 S; Temp 96.9(O); Pulse Ox 98% on R/A; Weight 105.23 kg gr2 (R); Height 5 ft. 3 in. (160.02 cm) (R); Pain 2/10; 22:34 BP 143 / 69; Pulse 79; Resp 18; Temp 98.7(T); Pulse Ox 96% ; Pain 0/10; mas 13:55 Body Mass Index 41.10 (105.23 kg, 160.02 cm) gr2 Vitals: 13:55 Log In Time: October 12, 2016 at 13:55. RN notified that patient meets Red Flag gr2 criteria. ED Course: 13:55 Patient visited by Alcides Rodriguez. gr2 13:55 Jose Sims is Private Physician. gr2 13:55 Patient moved to Waiting gr2 13:58 Patient visited by Alcides Rodriguez. gr2 14:00 Patient visited by Red Miranda, TASIA. mlb1 14:02 Triage Initiated mlb1 14:08 Patient moved to Pre RCE ms18 14:11 Patient visited by Red Miranda, RN. mlb1 14:11 Patient moved to [facility] mlb1 14:14 Marcus Cruz MD is Attending Physician. br1 14:17 Pt greeted and oriented to ED. Patient advised of names of staff involved in care, pjf location of call galloway, wait times and NPO status. Accompanied by Caregiver, Patient has correct armband on for positive identification. Bed in low position. Call light in reach. Side rails up X 1. Security observing. Property prop. removal is pending the arrival of a female observer. Door closed. Noise minimized. Visitors limited. Report received from rn - psych. triage level #2, +si / +ah, cooperative this time. The patient / caregiver is instructed regarding the plan of care and ED course. Psych Safety Check: Location: Psych Room. 14:39 Patient visited by Jose Christiansen Security Aide. pjf 15:07 Acetaminophen Level Sent. js13 15:07 Basic Metabolic Profile Sent. js13 15:07 Complete Blood Count Sent. js13 15:08 Drug Eval Toxicology ED Only Sent. js13 15:08 Ethyl Alcohol (ethanol) Sent. js13 15:08 Liver Profile Sent. js13 15:08 Salicylate Level Sent. js13 15:08 Thyroid Stimulating Hormone Sent. js13 15:15 Patient visited by Marcus Cruz MD. br1 15:28 Patient visited by Ferendzo, Jose, Security Aide. pjf 15:32 LITHIUM LEVEL Sent. jrd 15:43 Patient visited by Jose Christiansen Security Aide. pjf 15:57 Patient visited by Jose Christiansen Security Aide. pjf 16:13 Patient visited by Jose Christiansen Security Aide. pjf 16:33 Patient visited by Jose Christiansen Security Aide. pjf 16:44 Patient visited by Jose Christiansen Security Aide. pjf 17:07 Patient visited by Marty Adkins PCA. jrd 17:14 [facility] Payment Agreement was scanned into [email or web address] and attached to record. gjb 17:36 Patient visited by Marty Adkins PCA. jrd 17:46 Patient visited by Marty Adkins PCA. jrd 18:00 Psych Safety Check: Location: Psych Room. Visual Assessment: Cooperative. pjf 18:14 Patient visited by Marty Adkins PCA. jrd 18:28 Aristeo Santiago MD is Hospitalizing Provider. br1 18:29 Patient visited by Jose Christiansen Security Aidanish. pjf 18:33 [facility] Legal paperwork was scanned into [email or web address] and attached to record. ml4 18:41 Patient visited by Ten Loera. mas 18:56 Patient visited by Ten Loera. mas 19:19 Patient visited by Jose Christiansen Security Aide. pjf 19:33 Patient visited by Ten Loera. mas 19:45 Patient visited by Ten Loera. mas 20:00 Patient visited by Ten Loera. mas 20:12 Patient visited by Ingrid Gibson RN. jo3 20:15 Patient visited by Ten Loera. mas 20:30 Patient visited by Ten Loera. mas 20:45 Patient visited by Ten Loera. mas 21:00 Patient visited by Ten Loera. mas 21:15 Patient visited by Ten Loera. mas 21:30 Patient visited by Ten Loera. mas 21:46 Patient visited by Ten Loera. mas 22:03 Patient visited by Ten Loera. mas 22:15 Patient visited by Ten Loera. mas 22:31 Patient visited by Ten Loera. mas 22:45 Patient visited by Ten Loera. mas 22:45 No IV's were initiated during this patient's visit. No procedures done that require sls1 assistance. 10/13 12:59 T-Sheet-- Draft Copy was scanned into [email or web address] and attached to record. gb Attachments: 18:33 [facility] Legal paperwork ml4 Order Results: Lab Order: Acetaminophen Level; SPEC'M 10/12/16 15:07 Test: ACETAMINOPHEN LEVEL; Value: < 2.0; Range: 10.0-30.0; Abnormal: Below low normal; Units: UG/ML; Status: F Lab Order: Basic Metabolic Profile; SPEC'M 10/12/16 15:07 Test: GLUCOSE, FASTING; Value: 119; Range: 70-105; Abnormal: Above high normal; Units: MG/DL; Status: F Test: BLOOD UREA NITROGEN; Value: 14; Range: 7-18; Units: MG/DL; Status: F Test: CREATININE FOR GFR; Value: 0.73; Range: 0.55-1.02; Units: MG/DL; Status: F Test: GLOMERULAR FILTRATION RATE; Value: > 60.0; Range: >51; Status: F Test: SODIUM LEVEL; Value: 141; Range: 136-145; Units: MEQ/L; Status: F Test: POTASSIUM SERUM; Value: 4.0; Range: 3.5-5.1; Units: MEQ/L; Status: F Test: CHLORIDE LEVEL; Value: 105; Range: 98-107; Units: MEQ/L; Status: F Test: CARBON DIOXIDE LEVEL; Value: 30; Range: 21-32; Units: MEQ/L; Status: F Test: ANION GAP; Value: 6; Range: 8-16; Abnormal: Below low normal; Units: MEQ/L; Status: F Test: CALCIUM LEVEL; Value: 9.2; Range: 8.5-10.1; Units: MG/DL; Status: F Test Note: ; Units are mL/min/1.73 m2 Chronic Kidney Disease Staging per NKF: Stage I & II GFR >=60 Normal to Mildly Decreased Stage III GFR 30-59 Moderately Decreased Stage IV GFR 15-29 Severely Decreased Stage V GFR <15 Very Little GFR Left ESRD GFR <15 on PURCHASING AND CLAIMS SUPERVISOR Lab Order: Complete Blood Count; SPEC'M 10/12/16 15:07 Test: WHITE BLOOD COUNT; Value: 9.2; Range: 4.0-10.0; Units: K/mm3; Status: F Test: RED BLOOD COUNT; Value: 4.37; Range: 4.00-5.40; Units: M/mm3; Status: F Test: HEMOGLOBIN; Value: 12.8; Range: 12.0-16.0; Units: g/dl; Status: F Test: HEMATOCRIT; Value: 39.3; Range: 36.0-47.0; Units: %; Status: F Test: MEAN CORPUSCULAR VOLUME; Value: 90.1; Range: 80.0-96.0; Units: fl; Status: F Test: MEAN CORPUSCULAR HEMOGLOBIN; Value: 29.4; Range: 27.0-33.0; Units: pg; Status: F Test: MEAN CORPUSCULAR HGB CONC; Value: 32.6; Range: 32.0-36.5; Units: g/dl; Status: F Test: RED CELL DISTRIBUTION WIDTH; Value: 14.2; Range: 11.5-14.5; Units: %; Status: F Test: PLATELET COUNT, AUTOMATED; Value: 229; Range: 150-450; Units: k/mm3; Status: F Lab Order: Drug Eval Toxicology ED Only; SPEC'M 10/12/16 15:07 Test: AMPHETAMINES LEVEL URINE; Value: NEGATIVE; Range: NEGATIVE; Status: F Test: BARBITURATES URINE; Value: NEGATIVE; Range: NEGATIVE; Status: F Test: BENZODIAZEPINES URINE; Value: NEGATIVE; Range: NEGATIVE; Status: F Test: CANNABINOIDS URINE; Value: NEGATIVE; Range: NEGATIVE; Status: F Test: COCAINE METABOLITE URINE; Value: NEGATIVE; Range: NEGATIVE; Status: F Test: METHADONE URINE; Value: NEGATIVE; Range: NEGATIVE; Status: F Test: OPIATES URINE; Value: NEGATIVE; Range: NEGATIVE; Status: F Test: TRICYCLIC ANTIDEPRESS URINE; Value: NEGATIVE; Range: NEGATIVE; Status: F Test Note: ; ALL PRESUMPTIVE POSITIVE FINDINGS ARE UNCONFIRMED NORMAL VALUES THRESHOLD IN NG/ML AMPHETAMINES 1000 METHAMPHETAMINES 1000 BARBITURATES 300 BENZODIAZEPINES 300 CANNABINOIDS (THC) 50 COCAINE METABOLITE 300 METHADONE 300 OPIATES 300 PHENCYCLIDINE 25 TRICYCLIC ANTIDEPRESSANTS 1000 RESULTS ARE FOR MEDICAL PURPOSES ONLY. ALL URINE SPECIMENS WILL BE SAVED FOR 3 DAYS. IF CONFIRMATION OF A PRESUMPTIVE POSTIVE SCREEN RESULT IS DESIRED, CALL CHEMISTRY ([phone]) AND REQUEST URINE TO BE SENT TO REFERENCE LAB. FOR A LIST OF CLOSELY RELATED COMPOUNDS PLEASE CALL THE LAB. Lab Order: Ethyl Alcohol (ethanol); SPEC' 10/12/16 15:07 Test: ETHYL ALCOHOL (ETHANOL); Value: < 0.003; Range: 0.000-0.010; Units: %; Status: F Lab Order: Liver Profile; [facility]' 10/12/16 15: Test: AST/SGOT; Value: 16; Range: 15-37; Units: U/L; Status: F Test: ALT/SGPT; Value: 24; Range: 12-78; Units: U/L; Status: F Test: ALKALINE PHOSPHATASE; Value: 137; Range: 45-117; Abnormal: Above high normal; Units: U/L; Status: F Test: BILIRUBIN,TOTAL; Value: 0.3; Range: 0.2-1.0; Units: MG/DL; Status: F Test: BILIRUBIN,DIRECT; Value: < 0.1; Range: 0.0-0.2; Units: MG/DL; Status: F Test: TOTAL PROTEIN; Value: 7.3; Range: 6.4-8.2; Units: GM/DL; Status: F Test: ALBUMIN; Value: 3.9; Range: 3.2-5.2; Units: GM/DL; Status: F Test: ALBUMIN/GLOBULIN RATIO; Value: 1.15; Range: 1.00-1.93; Status: F Lab Order: Salicylate Level; SPEC' 10/12/16 15:07 Test: SALICYLATE LEVEL; Value: < 1.7; Range: 5.0-30.0; Abnormal: Below low normal; Units: MG/DL; Status: F Lab Order: Thyroid Stimulating Hormone; SPEC'10/12/16 15:07 Test: THYROID STIMULATING HORMONE; Value: 3.120; Range: 0.358-3.740; Units: uIU/ML; Status: F Lab Order: LITHIUM LEVEL; SPEC' 10/12/16 15:07 Test: LITHIUM LEVEL; Value: 0.91; Range: 0.60-1.20; Units: MEQ/L; Status: F Outcome: 10/12 18:29 Decision to Hospitalize by Provider. br1 22:45 Discharge Assessment: Patient awake, alert and oriented x 3. No cognitive and/or sls1 functional deficits noted. Patient verbalized understanding of disposition instructions. patient administered narcotics - no. The following High Risk Discharge criteria are identified: Yes, psych admit. Condition: stable. No special radiology studies were completed. 22:56 Patient left the ED. sls1 Signatures: Cammy Grant, PSA PSA ca Jessie, Yu, Reg Reg gb Tenzinatilio, Jose, Security Aide SecRed Sanchez RN RN mlb1 Ingrid Gibson,RN RN jo3 Naty Jauregui, PSA PSA ml4 Marcus Cruz MD MD br1 Ten Loera Shannon RN RN sls1 Ingrid Chery,RN RN js13 Alcides Rodriguez gr2 Ainsley Vasquez,RN RN ms18 Marty Adkins, NATHANIEL COMMODITIES CLERK d Beab Lopez Corrections: (The following items were deleted from the chart) 15:15 15:07 LITHIUM LEVEL+LAB sent. js13 EDMS Chart Complete MTDD
[2016-10-15] MEDS: LEVOTHYROXINE 0.05 MG TAB (50 MCG) PO SCH (06:29)
[2016-10-15 07:00] VITALS: BP 162/90
[2016-10-15] MEDS: DOCUSATE SODIUM 100 MG CAP PO SCH ×2 (08:01→20:38)
[2016-10-15] MEDS: CALCIUM/VITAMIN D 500 MG TAB PO SCH ×2 (08:01→20:38)
[2016-10-15] MEDS: ASPIRIN 81 MG ENTERIC TAB PO SCH (08:01)
[2016-10-15] MEDS: CETIRIZINE (ZyrTEC) 10 MG TAB PO SCH (08:01)
[2016-10-15] MEDS: OLANZapine 5 MG TAB PO SCH (08:01)
[2016-10-15] MEDS: POLYVINYL ALCOHOL OPHTH SOLN 15 ML(LIQUITEARS) OU PRN (08:01)
[2016-10-15] MEDS: SERTRALINE HCL 50 MG TAB PO SCH (08:01)
[2016-10-15] MEDS: LITHIUM CARBONATE 300 MG CAP PO SCH ×2 (08:01→20:39)
[2016-10-15] MEDS: OMEPRAZOLE 20 MG CAP PO SCH (08:01)
[2016-10-15] MEDS: FLUTICASONE 0.05% CREAM 30GM (CUTIVATE) TOP PRN (08:02)
[2016-10-15] MEDS: QUEtiapine FUMARATE 12.5 MG HALF-TAB PO PRN (12:55)
[2016-10-15 18:00] VITALS: BP 133/63
[2016-10-15] MEDS: LATANOPROST 0.005% OPHTH SOLN 2.5 ML OU SCH (20:38)
[2016-10-15] MEDS ORDERED: QUEtiapine FUMARATE 100 MG TAB PO SCH (21:00)
[2016-10-16] MEDS: LEVOTHYROXINE 0.05 MG TAB (50 MCG) PO SCH (06:12)
[2016-10-16 06:18] VITALS: BP 131/68
[2016-10-16] MEDS: IBUPROFEN 600 MG TAB PO PRN (07:19)
[2016-10-16] MEDS: ASPIRIN 81 MG ENTERIC TAB PO SCH (08:04)
[2016-10-16] MEDS: OMEPRAZOLE 20 MG CAP PO SCH (08:04)
[2016-10-16] MEDS: CALCIUM/VITAMIN D 500 MG TAB PO SCH ×2 (08:04→20:10)
[2016-10-16] MEDS: SERTRALINE HCL 50 MG TAB PO SCH (08:04)
[2016-10-16] MEDS: LITHIUM CARBONATE 300 MG CAP PO SCH ×2 (08:04→20:12)
[2016-10-16] MEDS: OLANZapine 5 MG TAB PO SCH (08:05)
[2016-10-16] MEDS: FLUTICASONE 0.05% CREAM 30GM (CUTIVATE) TOP PRN (08:05)
[2016-10-16] MEDS: POLYVINYL ALCOHOL OPHTH SOLN 15 ML(LIQUITEARS) OU PRN (08:05)
[2016-10-16] MEDS: DOCUSATE SODIUM 100 MG CAP PO SCH ×2 (08:05→20:10)
[2016-10-16] MEDS: CETIRIZINE (ZyrTEC) 10 MG TAB PO SCH (08:05)
[2016-10-16 18:00] VITALS: BP 145/67
[2016-10-16] MEDS: LATANOPROST 0.005% OPHTH SOLN 2.5 ML OU SCH (20:10)
[2016-10-16] MEDS: QUEtiapine FUMARATE 100 MG TAB PO SCH (21:38)
[2016-10-17] MEDS: LEVOTHYROXINE 0.05 MG TAB (50 MCG) PO SCH (06:28)
[2016-10-17 06:45] VITALS: BP 122/70
[2016-10-17] MEDS: POLYVINYL ALCOHOL OPHTH SOLN 15 ML(LIQUITEARS) OU PRN (08:14)
[2016-10-17] MEDS: FLUTICASONE 0.05% CREAM 30GM (CUTIVATE) TOP PRN ×2 (08:14→20:06)
[2016-10-17] MEDS: OMEPRAZOLE 20 MG CAP PO SCH (08:14)
[2016-10-17] MEDS: DOCUSATE SODIUM 100 MG CAP PO SCH ×2 (08:15→20:03)
[2016-10-17] MEDS: OLANZapine 5 MG TAB PO SCH (08:15)
[2016-10-17] MEDS: LITHIUM CARBONATE 300 MG CAP PO SCH ×2 (08:15→20:02)
[2016-10-17] MEDS: CALCIUM/VITAMIN D 500 MG TAB PO SCH ×2 (08:15→20:03)
[2016-10-17] MEDS: SERTRALINE HCL 50 MG TAB PO SCH (08:15)
[2016-10-17] MEDS: CETIRIZINE (ZyrTEC) 10 MG TAB PO SCH (08:15)
[2016-10-17] MEDS: ASPIRIN 81 MG ENTERIC TAB PO SCH (08:15)
[2016-10-17] MEDS: ACETAMINOPHEN TAB 650MG DOSE (2X325MG) PO PRN (08:54)
[2016-10-17] MEDS: MOM 30ML SUSPENSION UDC PO PRN (08:55)
--- NOTE | 2016-10-17 10:14 | IPN ---
DATE: 10/15/2016 SUBJECTIVE: "The medication is too strong, I feel too sedated". OBJECTIVE: No major changes since yesterday. Patient is reporting excessive sedation from the Seroquel at bedtime but also admits that she was not able to sleep when she was at [facility]. I discussed the treatment plan with the patient, encouraged the patient to discuss the dosage of her medication with the primary provider. MENTAL STATUS EXAMINATION: Patient is dressed in [facility]. Patient has tendency to somatize. Is cooperative during the exam but is anxious. Speech is slow and monotone. Mood is depressed and anxious. Affect is congruent with mood. No delusions or hallucinations. Memory is fair. Patient is fully oriented. Patient is able to contract for safety while in our unit and denies suicidal or homicidal ideation. During the interview, insight and judgment is limited. ASSESSMENT: 1. Depression with suicidal ideation and plan to cut self. PLAN: 1. Continue with [place] 900 mg by mouth daily at bedtime and 200 mg by mouth daily every morning. 2. Seroquel 12.5 mg by mouth every 6 as needed for anxiety. 3. Will decrease Seroquel to 250 mg by mouth daily at bedtime. 4. Continue with Zyprexa 5 mg by mouth daily every morning. 5. Continue with Zoloft 50 mg by mouth daily every morning.
--- NOTE | 2016-10-17 11:51 | IPN ---
DATE OF SERVICE: 10/16/2016 OBJECTIVE: The patient's symptoms have not changed from yesterday. Patient continues to report some somatization. Yesterday she asked me to have her Seroquel decreased because "it was to strong," but today she stated "I could not sleep." We discussed the treatment plan. There is no evidence of psychotic symptoms. The patient continues to depressed with psychomotor retardation. MENTAL STATUS EXAMINATION: Patient is dressed in [facility]. Patient is cooperative during exam, but is labile and anxious. Has poor eye contact. Speech is slow and monotone. Mood is depressed and anxious. Affect is labile. The patient denies auditory or visual hallucinations. No evidence of delusions. 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 The patient is fully oriented. Associations are intact. Thinking is logical. Thought content is appropriate. Patient is able to contract for safety and oriented. Denies suicidal or homicidal ideation during the interview. Insight and judgment is limited. ASSESSMENT: 1. Depression. 2. Suicidal ideation. PLAN: 1. Continue with lithium 300 mg by mouth every morning and 900 mg by mouth at bedtime. 2. Continue with Seroquel 12.5 mg by mouth every 6 hours as needed for insomnia. 3. Increase Seroquel to 300 mg by mouth at bedtime. 4. Zyprexa 5 mg by mouth every morning. 5. Zoloft 50 mg by mouth every morning.
--- NOTE | 2016-10-17 16:12 | IPNPDOC ---
[facility] Progress Note Progress Note DATE OF SERVICE: 10/17/16 HISTORY: Patient states "I was short with people, flying off the handle ". Patient also reports she had suicidal ideation because she was angry. Patient is a resident of [facility] housing services and goes to [facility] for her mental health needs. Patient states she self presented due to having suicidal ideation with a plan to cut herself. Patient reports she was thinking of cutting both of her wrists. Prior records report that patient does this when she does get angry. Patient states she was very upset with people in her housing unit. Patient also reported some kind of mobile crises that also aggravated the situation. Patient states she was feeling overwhelmed, angry. Patient also reports being fearful of another resident that was sneaking her boyfriend up to her apartment PAST PSYCHIATRIC HISTORY: Patient has 5 prior hospitalizations for psychiatric diagnoses between January 2013 and this present admit. This is patient's sixth hospitalization in that time period. Patient also has a hospitalization for polysubstance abuse in October 2012. ALLERGIES: Please see below. HOME MEDICATIONS: Per record as follows: -BuSpar 15 mg every morning, 30 mg daily at bedtime -Sertraline 50 mg by mouth every morning -[place]airnbrook 600 mg twice a day -Quetiapine 150 mg by mouth daily at bedtime -Ziprasidone 60 mg by mouth twice a day -Latuda 40 mg by mouth at 1800 PAST MEDICAL HISTORY: 1. Thyroid issue. 2. GERD 3. Sleep apnea 4. Arthritis of both knees and left hip FAMILY PSYCHIATRIC HISTORY: Patient reports her sister has depression. Patient also states she had a paternal aunt that was "really bad "and was institutionalized for most of her life, patient does not know why. SOCIAL HISTORY: Patient is a single, never , no kids female. Patient reports she has worked at [employer] Patient is currently on disability living in [facility]. Patient reports she has a sister and her mother is still alive and well. SUBSTANCE ABUSE HISTORY: Patient denies old records show that patient had a polysubstance abuse admission in October 2012 her drug test at that time tested positive for alcohol and amphetamines and cannabis. LEGAL HISTORY: Patient states she has been arrested for assault in the past and was put on probation. Patient denies any senior care or nursing home times. Patient states she was last arrested greater than 10 years ago. VITAL SIGNS: Temperature 98, pulse 71, respiratory rate 18, blood pressure 122/ 70. LABORATORY DATA: Please see below. UDS on admit was negative. CURRENT MEDICATIONS: See below. Cairnbrook 300 mg po q am, 900 mg po qhs for mood stabilization, Quetiapine 300 mg po qhs for mood stabilization/decrease in psychotic symptoms, zyprexa 5 mg po q am for linwood/schizophrenia, sertraline 50 mg po q am for depression, seroquel 12.5 mg po q 6h prn for Agitation/anxiety/ AH. To consider abilify if no resolution of symptoms. MENTAL STATUS EXAMINATION: Patient is a 56 year old female, who is pleasant, somewhat cooperative, overweight, elderly appearing, of average build. Patient is ambulating with use of her walker with a steady gait. Patient is currently wearing her own clothing. Patient has average grooming. Pt. is very negative and argumentative today. Pt. appears to have more behavioral issues as reported by herself over the weekend. Speech: Is of normal rate, volume and articulation. Patient is coherent and spontaneous. Patient is awake and appropriate during this assessment. Language: Intact. Thought processes: Clear, goal-directed. Thought content: Irrational at times, illogical at times, circumstantial. Brief periods of lucidity. Abstract reasoning, and computation: Adequate. Associations: Circumstantial. Description of abnormal or psychotic thoughts: Patient denies delusions, obsessions, compulsions, preoccupations. Patient also reports no suicidal ideation. Patient denies any thoughts of a plan for suicide. Pt. reports "I have had thoughts of hurting others like hitting them up side the head, I wouldn 't do it". Patient reports hearing voices that "talk to me about killing myself ". Pt. reports she has none today, also denies VH today. Patient is very short tempered and states repeatedly "I don't want to think about that, I can't answer that". Pt. appears to have paranoia in that she feels the staff and other patients are "looking at me funny", pt. also reports others laugh at her and talk about her. Judgment: Limited. Insight: Poor. Oriented to: Person, place, and surroundings and time. Recent and remote memory: Intact. Patient feels she sometimes has problems with her short-term memory. Pt. states "It's worse, it bothers me, I don't know". Attention span and concentration: Fair. Language : Normal. Fund of knowledge: Adequate. Mood: Patient states again "I don't think my mood is that good", pt. will not elaborate any further or give provider any examples. Pt. states "I don't know repeatedly it seems when she doesn't want to answer. Patient does not appear to be labile, depressed or anxious. Pt. is noted to be somewhat agitated. Pt. has many personality issues at present. Pt. noted to not be consistent with her statements such as not having any SI/HI, then in next statement reports she had SI after an argument with a staff member. When asked about staff member incident reports "I don't know how to explain it". Pt. also reports she has thoughts of hurting people after just stating she doesn't. Affect: Appropriate, flat, constricted, agitates easily and then is tangential about nothing that is a realistic factor in her care. Pt. is tangential today about her family. States "I got upset, they disgust me, my family". Pt. also states "My mind is racing, I can't think straight, feel confused". Pt. states she had "2-3 times, maybe" behavior outbursts over the weekend. Staff report behavior was in better control over the weekend. Pt. does not appear to be reliable in her statements or presentation. DIAGNOSES: 1. Schizoaffective disorder. ASSESSMENT: Patient is a 56-year-old female who has multiple admissions to this unit. Patient again got angry and then had suicidal ideation of cutting both her wrists. Patient felt it would be best for her to come in and be evaluated. Patient states last admission was in June 2016 for very similar reasons. Patient appears to be agitated again today. Patient does not appear to be depressed or anxious at present. Patient is not showing normal signs of someone experiencing auditory hallucinations. Patient does not complain about them disrupting her thoughts or her sleep. Patient reports "I slept". Patient reports she did sleep 8 hours after stating "I don't know". Patient reports her baseline depression is 3/10, reports anxiety as "I don't know"/10. Patient currently states her depression as 2-3/10, anxiety is 5-6/10. Staff is reporting that pt. is demanding to them to be in an adult daycare. Pt. to be re- directed as her PCP needs to refer for this, staff don't feel she would currently meet criteria. Pt. has not mentioned this at all to provider. Per prior record patient appears to come in frequently after altercations or arguments with her roommates or housing peers. MANAGEMENT PLAN: Patient to be continually assessed and evaluated. Maintain safety precautions. Medications to be changed in effort to decrease symptoms. Patient to attend groups and participate in unit programming and activities to develop effective coping strategies. Patient to be engaged in discharge planning process to ensure safe and effective discharge plan. Patient to follow- up with primary care physician upon discharge. Patient to resume therapy and medication management services upon discharge. TIME SPENT: 25 minutes. Vital Signs Vital Signs Date Time Temp Pulse Resp B/P Pulse Ox O2 Delivery O2 Flow Rate FiO2 10/17/16 06:45 98.0 71 18 122/70 10/12/16 23:05 96 Room Air Laboratory Data 24H Labs Laboratory Tests 2 10/17/16 11:01: Cairnbrook Level 0.87 Current Medications Current Medications Acetaminophen (Tylenol Tab) 650 mg Q4HP PRN PO PAIN / FEVER Last administered on 10/17/16 08:54; Start 10/13/16 at 00:30; Stop 11/12/16 at 00:29 Al Hydrox/Mg Hydrox/Simethicone (Mylanta) 30 ml Q4HP PRN PO HEARTBURN/ INDIGESTION; Start 10/13/16 at 00:30; Stop 11/12/16 at 00:29 Artificial Tears (Akwa Tears) 1 drop TIDP PRN OU DRY EYES Last administered on 10/17/16 08:14; Start 10/13/16 at 00:30; Stop 11/12/16 at 00:29 Aspirin (Ecotrin) 81 mg DAILY PO Last administered on 10/17/16 08:15; Start at 09:00; Stop 11/12/16 at 08:59 Buspirone HCl (Buspar) 15 mg BID PO Last administered on 10/14/16 08:48; Start 10/13/16 at 21:00; Stop 10/14/16 at 13:15; Status DC Buspirone HCl (Buspar) 15 mg QAM PO Last administered on 10/13/16 08:32; Start 10/13/16 at 09:00; Stop 10/13/16 at 13:05; Status DC Buspirone HCl (Buspar) 30 mg QHS PO Last administered on 10/13/16 01:42; Start 10/12/16 at 21:00; Stop 10/13/16 at 13:05; Status DC Calcium/Vitamin D (Oscal D) 500 mg BID PO Last administered on 10/17/16 08:15 ; Start 10/12/16 at 21:00; Stop 11/11/16 at 20:59 Cetirizine HCl (ZyrTEC) 10 mg DAILY PO Last administered on 10/17/16 08:15; Start 10/13/16 at 09:00; Stop 11/12/16 at 08:59 Docusate Sodium (Colace) 100 mg BID PO Last administered on 10/17/16 08:15; Start 10/12/16 at 21:00; Stop 11/11/16 at 20:59 Fluticasone Propionate (Cutivate 0.05%) Psoriasis Elbows BIDP PRN TOP RASH/ ITCHING Last administered on 10/17/16 08:14; Start 10/13/16 at 00:45; Stop at 00:44 Home Med (Med Rec Complete!) ASDIRECTED XX ; Start 10/12/16 at 19:15; Stop at 19:20; Status DC Ibuprofen (Advil) 600 mg Q6HP PRN PO PAIN Last administered on 10/13/16 21:34 ; Start 10/13/16 at 00:30; Stop 10/13/16 at 23:28; Status DC Ibuprofen (Advil) 600 mg Q6HP PRN PO MODERATE PAIN (PS 5-7) Last administered on 10/16/16 07:19; Start 10/13/16 at 23:30; Stop 11/12/16 at 23:29 Latanoprost (Xalatan 0.005% Op Soln) 1 drop QHS OU Last administered on 20:10; Start 10/12/16 at 21:00; Stop 11/11/16 at 20:59 Levothyroxine Sodium (Synthroid) 0.05 mg DAILY@06 PO Last administered on 06:28; Start 10/13/16 at 06:00; Stop 11/12/16 at 05:59 Cairnbrook Carbonate (Cairnbrook Carbonate) 300 mg QAM PO Last administered on 08:15; Start 10/14/16 at 09:00; Stop 11/13/16 at 08:59 C[place]rook Carbonate (C[place]nbrook Carbonate) 600 mg BID PO Last administered on 08:31; Start 10/12/16 at 21:00; Stop 10/13/16 at 13:05; Status DC Cairnbrook Carbonate (Cairnbrook Carbonate) 900 mg QHS PO Last administered on 20:12; Start 10/14/16 at 21:00; Stop 11/13/16 at 20:59 Cair[place]rook Carbonate (Cairnbrook Carbonate) 900 mg QPM PO Last administered on 20:15; Start 10/13/16 at 21:00; Stop 10/14/16 at 16:05; Status DC Lurasidone HCl (Latuda) 40 mg DAILY@18 PO ; Start 10/12/16 at 18:00; Stop at 13:05; Status DC Magnesium Hydroxide (Milk Of Magnesia) 30 ml DAILYPRN PRN PO CONSTIPATION Last administered on 10/17/16 08:55; Start 10/13/16 at 00:30; Stop 11/12/16 at 00:29 Olanzapine (ZyPREXA) 5 mg QAM PO Last administered on 10/17/16 08:15; Start at 09:00; Stop 11/13/16 at 08:59 Omeprazole (PriLOSEC) 40 mg DAILY PO Last administered on 10/17/16 08:14; Start 10/13/16 at 09:00; Stop 11/12/16 at 08:59 Quetiapine Fumarate (SEROquel) 12.5 mg Q6HP PRN PO ANXIETY/AGITATION Last administered on 10/15/16 12:55; Start 10/14/16 at 13:15; Stop 11/13/16 at 13:14 Quetiapine Fumarate (SEROquel) 150 mg QHS PO Last administered on 10/13/16 01: 41; Start 10/12/16 at 21:00; Stop 10/13/16 at 13:05; Status DC Quetiapine Fumarate (SEROquel) 250 mg QHS PO Last administered on 10/15/16 22: 08; Start 10/15/16 at 21:00; Stop 10/16/16 at 10:56; Status DC Quetiapine Fumarate (SEROquel) 300 mg QHS PO Last administered on 10/14/16 21: 39; Start 10/13/16 at 21:00; Stop 10/15/16 at 10:30; Status DC Quetiapine Fumarate (SEROquel) 300 mg QHS PO Last administered on 10/16/16 21: 38; Start 10/16/16 at 21:00; Stop 11/15/16 at 20:59 Sertraline HCl (Zoloft) 50 mg DAILY PO Last administered on 10/17/16 08:15; Start 10/13/16 at 09:00; Stop 11/12/16 at 08:59 Ziprasidone (Geodon) 60 mg BID PO Last administered on 10/13/16 08:30; Start 10/12/16 at 21:00; Stop 10/13/16 at 13:05; Status DC Allergies Coded Allergies: Doxepin (Verified Allergy, Severe, SEIZURES, 11/26/12) Bupropion (Unverified Allergy, Unknown, "SPEEDS" UP, 10/12/16) Hydroxyzine (Verified Allergy, Unknown, 11/26/12) Chlorpromazine (Verified Adverse Reaction, Intermediate, EPS, 11/26/12) Thioridazine (Verified Adverse Reaction, Intermediate, EPS, 11/26/12) Trifluoperazine (Verified Adverse Reaction, Intermediate, EPS, 11/26/12) PATRICIA ODELL NP Oct 17, 2016 16:12
[2016-10-17 18:00] VITALS: BP 147/73
[2016-10-17] MEDS: LATANOPROST 0.005% OPHTH SOLN 2.5 ML OU SCH (20:03)
[2016-10-17] MEDS: QUEtiapine FUMARATE 100 MG TAB PO SCH (21:18)
[2016-10-18] MEDS: ACETAMINOPHEN TAB 650MG DOSE (2X325MG) PO PRN ×3 (04:57→23:52)
[2016-10-18] MEDS: LEVOTHYROXINE 0.05 MG TAB (50 MCG) PO SCH (05:00)
[2016-10-18 06:34] VITALS: BP 155/77
[2016-10-18] MEDS: POLYVINYL ALCOHOL OPHTH SOLN 15 ML(LIQUITEARS) OU PRN (08:19)
[2016-10-18] MEDS: SERTRALINE HCL 50 MG TAB PO SCH (08:20)
[2016-10-18] MEDS: CALCIUM/VITAMIN D 500 MG TAB PO SCH ×2 (08:20→20:02)
[2016-10-18] MEDS: OLANZapine 5 MG TAB PO SCH (08:20)
[2016-10-18] MEDS: LITHIUM CARBONATE 300 MG CAP PO SCH ×2 (08:20→20:02)
[2016-10-18] MEDS: CETIRIZINE (ZyrTEC) 10 MG TAB PO SCH (08:20)
[2016-10-18] MEDS: DOCUSATE SODIUM 100 MG CAP PO SCH ×2 (08:20→20:02)
[2016-10-18] MEDS: OMEPRAZOLE 20 MG CAP PO SCH (08:20)
[2016-10-18] MEDS: FLUTICASONE 0.05% CREAM 30GM (CUTIVATE) TOP PRN ×2 (08:20→20:04)
[2016-10-18] MEDS: ASPIRIN 81 MG ENTERIC TAB PO SCH (08:20)
[2016-10-18] MEDS: QUEtiapine FUMARATE 12.5 MG HALF-TAB PO PRN (12:20)
--- NOTE | 2016-10-18 16:47 | IPNPDOC ---
[facility] Progress Note Progress Note DATE OF SERVICE: 10/18/16 HISTORY: Patient states "I was short with people, flying off the handle ". Patient also reports she had suicidal ideation because she was angry. Patient is a resident of [facility] housing services and goes to [facility] for her mental health needs. Patient states she self presented due to having suicidal ideation with a plan to cut herself. Patient reports she was thinking of cutting both of her wrists. Prior records report that patient does this when she does get angry. Patient states she was very upset with people in her housing unit. Patient also reported some kind of mobile crises that also aggravated the situation. Patient states she was feeling overwhelmed, angry. Patient also reports being fearful of another resident that was sneaking her boyfriend up to her apartment PAST PSYCHIATRIC HISTORY: Patient has 5 prior hospitalizations for psychiatric diagnoses between January 2013 and this present admit. This is patient's sixth hospitalization in that time period. Patient also has a hospitalization for polysubstance abuse in October 2012. ALLERGIES: Please see below. HOME MEDICATIONS: Per record as follows: -BuSpar 15 mg every morning, 30 mg daily at bedtime -Sertraline 50 mg by mouth every morning -Manzano 600 mg twice a day -Quetiapine 150 mg by mouth daily at bedtime -Ziprasidone 60 mg by mouth twice a day -Latuda 40 mg by mouth at 1800 PAST MEDICAL HISTORY: 1. Thyroid issue. 2. GERD 3. Sleep apnea 4. Arthritis of both knees and left hip FAMILY PSYCHIATRIC HISTORY: Patient reports her sister has depression. Patient also states she had a paternal aunt that was "really bad "and was institutionalized for most of her life, patient does not know why. SOCIAL HISTORY: Patient is a single, never , no kids female. Patient reports she has worked at [employer] and [employer]. Patient is currently on disability living in [facility]. Patient reports she has a sister and her mother is still alive and well. SUBSTANCE ABUSE HISTORY: Patient denies old records show that patient had a polysubstance abuse admission in October 2012 her drug test at that time tested positive for alcohol and amphetamines and cannabis. LEGAL HISTORY: Patient states she has been arrested for assault in the past and was put on probation. Patient denies any long-term or fdc times. Patient states she was last arrested greater than 10 years ago. VITAL SIGNS: Temperature 96, pulse 84, respiratory rate 18, blood pressure 155/ 77. LABORATORY DATA: Please see below. UDS on admit was negative. CURRENT MEDICATIONS: See below. Manzano 300 mg po q am, 900 mg po qhs for mood stabilization, Quetiapine 300 mg po qhs for mood stabilization/decrease in psychotic symptoms, zyprexa 5 mg po q am for linwood/schizophrenia, sertraline 50 mg po q am for depression, seroquel 12.5 mg po q 6h prn for Agitation/anxiety/ AH. To consider abilify if no resolution of symptoms. MENTAL STATUS EXAMINATION: Patient is a 56 year old female, who is aggravated and uncooperative today. Pt. is overweight, elderly appearing, of large build. Patient is ambulating with use of her walker with a steady gait. Patient is currently wearing her own clothing. Patient has average grooming. Pt. is very negative and argumentative today. Pt. appears to have more behavioral issues today than psychiatric issues. Pt. is angry, arguing with provider(this provider is not arguing), yelling and screaming at times, inappropriate in behavior and comments. Speech: Is of increased rate, volume and articulation when she wants an answer, is slow, almost mute when she is asked any questions. Patient is acting very passive aggressive today. Patient is coherent and spontaneous. Patient is awake and appropriate during this assessment. Language: Intact. Thought processes: Clear, goal-directed to be argumentative. Even when pt. is given an answer she still chooses to argue and be disagreeable. Thought content: Irrational at times, illogical at times, circumstantial. Longer periods of lucidity. Pt. is lucid when she wants something, states "I don't know" or "I don 't remember" when she is asked for information. Abstract reasoning, and computation: Adequate. Associations: Circumstantial, tangential, paranoid. Description of abnormal or psychotic thoughts: Patient is very short tempered and angry today. Pt. does not actually answer questions or communicate appropriately. Pt. is either raising her voice in an aggressive nature or choosing to be mute in defiance. Pt. appears to have paranoia in that she feels the staff are singling her out as "I am the only one who does not have a nurse or staff assigned to me, that is against my rights". Provider attempts to explain to patient that the white board has not been completed for assignments, patient just argues even more. Pt. also states "They are(the staff) punishing me as they hate me". Pt. angrily states "I don't hear voices" when asked by provider, denies VH as well. Pt. denies delusions. Pt. states she has preoccupations, then states "It's pretty hard to talk about, some thoughts are troublesome, of a sexual nature, I don't wanna get into it". When asked about obsessions or compulsions, patient reports "God, when I'm home I check the door locks a lot". When asked about HI/SI or a plan pt. states "I don't know how to answer that, I probably forgot, If I had suicidal or thoughts to hurt someone I can't remember". When patient was aked about her anger today she was inappropriate and started screaming "I don't care if I live or , I wish I was freaking ". Judgment: Limited. Insight: Poor. Oriented to: Patient would not answer. Recent and remote memory: Patient would not answer. Attention span and concentration: Limited. Language: Normal. Fund of knowledge: Adequate. Mood: Patient states " One more question, Jeesh!!I feel like shit, that's how I feel", pt. yelled. Pt. states "I don't know repeatedly it seems when she doesn't want to answer. Patient does not appear to be labile , depressed or anxious, just very angry. Pt. will not say why, states "I don't know". Pt. is noted to be very agitated for unknown reason. Pt. has many personality issues at present. Affect: Inappropriate, reactive, agitates easily and then is tangential about nothing that is a realistic factor in her care. Pt. does not appear to be reliable in her statements or presentation. DIAGNOSES: 1. Schizoaffective disorder. ASSESSMENT: Patient is a 56-year-old female who has multiple admissions to this unit. Patient again got angry and then had suicidal ideation of cutting both her wrists. Patient felt it would be best for her to come in and be evaluated. Patient states last admission was in June 2016 for very similar reasons. Patient appears to be agitated again today. Patient does not appear to be depressed or anxious at present. Patient is not showing normal signs of someone experiencing auditory hallucinations. Patient does not complain about them disrupting her thoughts or her sleep. Patient reports her baseline depression is 3/10, reports anxiety as "I don't know"/10. Patient currently states her depression as 5-6/10, anxiety is 5-6/10. Pt. refuses to answer any questions about how she slept or number of hours she did sleep. Staff charted she slept well for 6.5 hours with eyes closed. Per prior record patient appears to come in frequently after altercations or arguments with her roommates or housing peers. MANAGEMENT PLAN: Patient to be continually assessed and evaluated. Maintain safety precautions. Medications to be changed in effort to decrease symptoms. To consider transfer [place] [facility] if mood cannot be stabilized and thoughts of hurting others cannot be eliminated. Patient to attend groups and participate in unit programming and activities to develop effective coping strategies. Patient to be engaged in discharge planning process to ensure safe and effective discharge plan. Patient to follow-up with primary care physician upon discharge. Patient to resume therapy and medication management services upon discharge. TIME SPENT: 25 minutes. Vital Signs Vital Signs Date Time Temp Pulse Resp B/P Pulse Ox O2 Delivery O2 Flow Rate FiO2 10/18/16 06:34 96.0 84 18 155/77 10/12/16 23:05 96 Room Air Current Medications Current Medications Acetaminophen (Tylenol Tab) 650 mg Q4HP PRN PO PAIN / FEVER Last administered on 10/18/16 14:34; Start 10/13/16 at 00:30; Stop 11/12/16 at 00:29 Al Hydrox/Mg Hydrox/Simethicone (Mylanta) 30 ml Q4HP PRN PO HEARTBURN/ INDIGESTION; Start 10/13/16 at 00:30; Stop 11/12/16 at 00:29 Artificial Tears (Akwa Tears) 1 drop TIDP PRN OU DRY EYES Last administered on 10/18/16 08:19; Start 10/13/16 at 00:30; Stop 11/12/16 at 00:29 Aspirin (Ecotrin) 81 mg DAILY PO Last administered on 10/18/16 08:20; Start at 09:00; Stop 11/12/16 at 08:59 Buspirone HCl (Buspar) 15 mg BID PO Last administered on 10/14/16 08:48; Start 10/13/16 at 21:00; Stop 10/14/16 at 13:15; Status DC Buspirone HCl (Buspar) 15 mg QAM PO Last administered on 10/13/16 08:32; Start 10/13/16 at 09:00; Stop 10/13/16 at 13:05; Status DC Buspirone HCl (Buspar) 30 mg QHS PO Last administered on 10/13/16 01:42; Start 10/12/16 at 21:00; Stop 10/13/16 at 13:05; Status DC Calcium/Vitamin D (Oscal D) 500 mg BID PO Last administered on 10/18/16 08:20 ; Start 10/12/16 at 21:00; Stop 11/11/16 at 20:59 Cetirizine HCl (ZyrTEC) 10 mg DAILY PO Last administered on 10/18/16 08:20; Start 10/13/16 at 09:00; Stop 11/12/16 at 08:59 Docusate Sodium (Colace) 100 mg BID PO Last administered on 10/18/16 08:20; Start 10/12/16 at 21:00; Stop 11/11/16 at 20:59 Fluticasone Propionate (Cutivate 0.05%) Psoriasis Elbows BIDP PRN TOP RASH/ ITCHING Last administered on 10/18/16 08:20; Start 10/13/16 at 00:45; Stop at 00:44 Home Med (Med Rec Complete!) ASDIRECTED XX ; Start 10/12/16 at 19:15; Stop at 19:20; Status DC Ibuprofen (Advil) 600 mg Q6HP PRN PO PAIN Last administered on 10/13/16 21:34 ; Start 10/13/16 at 00:30; Stop 10/13/16 at 23:28; Status DC Ibuprofen (Advil) 600 mg Q6HP PRN PO MODERATE PAIN (PS 5-7) Last administered on 10/16/16 07:19; Start 10/13/16 at 23:30; Stop 11/12/16 at 23:29 Latanoprost (Xalatan 0.005% Op Soln) 1 drop QHS OU Last administered on 20:03; Start 10/12/16 at 21:00; Stop 11/11/16 at 20:59 Levothyroxine Sodium (Synthroid) 0.05 mg DAILY@06 PO Last administered on 05:00; Start 10/13/16 at 06:00; Stop 11/12/16 at 05:59 Manzano Carbonate (Manzano Carbonate) 300 mg QAM PO Last administered on 08:20; Start 10/14/16 at 09:00; Stop 11/13/16 at 08:59 Manzano Carbonate (Manzano Carbonate) 600 mg BID PO Last administered on 08:31; Start 10/12/16 at 21:00; Stop 10/13/16 at 13:05; Status DC Manzano Carbonate (Manzano Carbonate) 900 mg QHS PO Last administered on 20:02; Start 10/14/16 at 21:00; Stop 11/13/16 at 20:59 Manzano Carbonate (Manzano Carbonate) 900 mg QPM PO Last administered on 20:15; Start 10/13/16 at 21:00; Stop 10/14/16 at 16:05; Status DC Lurasidone HCl (Latuda) 40 mg DAILY@18 PO ; Start 10/12/16 at 18:00; Stop at 13:05; Status DC Magnesium Hydroxide (Milk Of Magnesia) 30 ml DAILYPRN PRN PO CONSTIPATION Last administered on 10/17/16 08:55; Start 10/13/16 at 00:30; Stop 11/12/16 at 00:29 Olanzapine (ZyPREXA) 5 mg QAM PO Last administered on 10/18/16 08:20; Start at 09:00; Stop 11/13/16 at 08:59 Omeprazole (PriLOSEC) 40 mg DAILY PO Last administered on 10/18/16 08:20; Start 10/13/16 at 09:00; Stop 11/12/16 at 08:59 Quetiapine Fumarate (SEROquel) 12.5 mg Q6HP PRN PO ANXIETY/AGITATION Last administered on 10/18/16 12:20; Start 10/14/16 at 13:15; Stop 11/13/16 at 13:14 Quetiapine Fumarate (SEROquel) 150 mg QHS PO Last administered on 10/13/16 01: 41; Start 10/12/16 at 21:00; Stop 10/13/16 at 13:05; Status DC Quetiapine Fumarate (SEROquel) 250 mg QHS PO Last administered on 10/15/16 22: 08; Start 10/15/16 at 21:00; Stop 10/16/16 at 10:56; Status DC Quetiapine Fumarate (SEROquel) 300 mg QHS PO Last administered on 10/14/16 21: 39; Start 10/13/16 at 21:00; Stop 10/15/16 at 10:30; Status DC Quetiapine Fumarate (SEROquel) 300 mg QHS PO Last administered on 10/17/16 21: 18; Start 10/16/16 at 21:00; Stop 11/15/16 at 20:59 Sertraline HCl (Zoloft) 50 mg DAILY PO Last administered on 10/18/16 08:20; Start 10/13/16 at 09:00; Stop 11/12/16 at 08:59 Ziprasidone (Geodon) 60 mg BID PO Last administered on 10/13/16 08:30; Start 10/12/16 at 21:00; Stop 10/13/16 at 13:05; Status DC Allergies Coded Allergies: Doxepin (Verified Allergy, Severe, SEIZURES, 11/26/12) Bupropion (Unverified Allergy, Unknown, "SPEEDS" UP, 10/12/16) Hydroxyzine (Verified Allergy, Unknown, 11/26/12) Chlorpromazine (Verified Adverse Reaction, Intermediate, EPS, 11/26/12) Thioridazine (Verified Adverse Reaction, Intermediate, EPS, 11/26/12) Trifluoperazine (Verified Adverse Reaction, Intermediate, EPS, 11/26/12) PATRICIA ODELL NP Oct 18, 2016 16:47
[2016-10-18 18:00] VITALS: BP 150/97
[2016-10-18] MEDS: LATANOPROST 0.005% OPHTH SOLN 2.5 ML OU SCH (20:02)
[2016-10-18] MEDS: QUEtiapine FUMARATE 100 MG TAB PO SCH (21:01)
[2016-10-19] MEDS: LEVOTHYROXINE 0.05 MG TAB (50 MCG) PO SCH (05:36)
[2016-10-19] MEDS: IBUPROFEN 600 MG TAB PO PRN ×2 (05:40→22:04)
[2016-10-19 06:45] VITALS: BP 130/71
[2016-10-19] MEDS: DOCUSATE SODIUM 100 MG CAP PO SCH ×2 (08:02→20:14)
[2016-10-19] MEDS: ASPIRIN 81 MG ENTERIC TAB PO SCH (08:02)
[2016-10-19] MEDS: CETIRIZINE (ZyrTEC) 10 MG TAB PO SCH (08:02)
[2016-10-19] MEDS: OMEPRAZOLE 20 MG CAP PO SCH (08:02)
[2016-10-19] MEDS: CALCIUM/VITAMIN D 500 MG TAB PO SCH ×2 (08:02→20:13)
[2016-10-19] MEDS: SERTRALINE HCL 50 MG TAB PO SCH (08:03)
[2016-10-19] MEDS: OLANZapine 5 MG TAB PO SCH ×2 (08:03→20:13)
[2016-10-19] MEDS: LITHIUM CARBONATE 300 MG CAP PO SCH ×2 (08:03→20:14)
[2016-10-19] MEDS: POLYVINYL ALCOHOL OPHTH SOLN 15 ML(LIQUITEARS) OU PRN (08:05)
[2016-10-19] MEDS: FLUTICASONE 0.05% CREAM 30GM (CUTIVATE) TOP PRN (08:06)
[2016-10-19] MEDS ORDERED: **PENDING PPD ENTRY XX SCH (09:00)
--- NOTE | 2016-10-19 11:33 | IPNPDOC ---
[facility] Progress Note Progress Note DATE OF SERVICE: 10/19/16 HISTORY: Patient states "I was short with people, flying off the handle ". Patient also reports she had suicidal ideation because she was angry. Patient is a resident of [facility] housing services and goes to [facility] for her mental health needs. Patient states she self presented due to having suicidal ideation with a plan to cut herself. Patient reports she was thinking of cutting both of her wrists. Prior records report that patient does this when she does get angry. Patient states she was very upset with people in her housing unit. Patient also reported some kind of mobile crises that also aggravated the situation. Patient states she was feeling overwhelmed, angry. Patient also reports being fearful of another resident that was sneaking her boyfriend up to her apartment PAST PSYCHIATRIC HISTORY: Patient has 5 prior hospitalizations for psychiatric diagnoses between January 2013 and this present admit. This is patient's sixth hospitalization in that time period. Patient also has a hospitalization for polysubstance abuse in October 2012. ALLERGIES: Please see below. HOME MEDICATIONS: Per record as follows: -BuSpar 15 mg every morning, 30 mg daily at bedtime -Sertraline 50 mg by mouth every morning -[place] 600 mg twice a day -Quetiapine 150 mg by mouth daily at bedtime -Ziprasidone 60 mg by mouth twice a day -Latuda 40 mg by mouth at 1800 PAST MEDICAL HISTORY: 1. Thyroid issue. 2. GERD 3. Sleep apnea 4. Arthritis of both knees and left hip FAMILY PSYCHIATRIC HISTORY: Patient reports her sister has depression. Patient also states she had a paternal aunt that was "really bad "and was institutionalized for most of her life, patient does not know why. SOCIAL HISTORY: Patient is a single, never , no kids female. Patient reports she has worked at [employer] and [employer]. Patient is currently on disability living in [facility]. Patient reports she has a sister and her mother is still alive and well. SUBSTANCE ABUSE HISTORY: Patient denies old records show that patient had a polysubstance abuse admission in October 2012 her drug test at that time tested positive for alcohol and amphetamines and cannabis. LEGAL HISTORY: Patient states she has been arrested for assault in the past and was put on probation. Patient denies any senior living or long-term times. Patient states she was last arrested greater than 10 years ago. VITAL SIGNS: Temperature 98, pulse 86, respiratory rate 18, blood pressure 130/ 71. LABORATORY DATA: Please see below. UDS on admit was negative. CURRENT MEDICATIONS: See below. [place] 300 mg po q am, 900 mg po qhs for mood stabilization, Quetiapine 300 mg po qhs for mood stabilization/decrease in psychotic symptoms, zyprexa 5 mg po q am for linwood/schizophrenia, sertraline 50 mg po q am for depression, seroquel 12.5 mg po q 6h prn for Agitation/anxiety/ AH. MENTAL STATUS EXAMINATION: Patient is a 56 year old female, who is again aggravated and uncooperative today. Pt. is overweight, elderly appearing, of large build. Patient is ambulating with use of her walker with a steady gait. Patient is currently wearing her own clothing. Patient has average grooming. Pt. is very negative and argumentative again today. Pt. is showing signs of personality disorder for the last 2 days, in addition to her psychiatric issues. Pt. is angry, arguing with provider(this provider is not arguing or even speaking to patient), yelling and screaming as soon as she moved to the hallway with an audience. Pt. is inappropriate in behavior and comments. Pt. is yelling and screaming when nothing is being said or directed at her. Pt. during this tirade was also swearing and using foul language. Speech: Is of increased rate, volume and articulation when she wants an answer, is slow, almost mute when she is asked any questions. Patient is acting very passive aggressive again today. Patient is complaining about being assessed each day that she is here. Patient is coherent and spontaneous. Language: Intact. Thought processes: Unclear, goal-directed to be argumentative. Even when pt. is given the answer she wants, she still chooses to argue and be disagreeable. Thought content: Irrational at times, illogical at times, circumstantial. Longer periods of lucidity. Pt. is lucid when she wants something, states "I don't know" or "I don't remember" when she is asked for information. Abstract reasoning, and computation: Adequate. Associations: Circumstantial, tangential, paranoid. Description of abnormal or psychotic thoughts: Patient is very short tempered and angry today. Pt. does not actually answer questions or communicate appropriately. Pt. is either raising her voice in an aggressive nature or choosing to be mute in defiance. Pt. appears to continue her paranoia as she feels the staff are "punishing me as they hate me" . Pt. angrily states "I don't hear voices" when asked by provider, denies VH as well. Pt. then repeats these responses by screaming. Pt. denies delusions. Pt. states she has preoccupations, then states "I have them off and on, I'm not gonna elaborate on it". When asked about obsessions or compulsions, patient denies any. When asked about HI/SI or a plan pt. states "There's been some, I don't care to recite about them, I don't know". Pt. then states "I ain't gonna do it, I just have the thoughts". Judgment: Limited. Insight: Poor. Oriented to: Patient refused to answer. Recent and remote memory: Patient refused to answer. Attention span and concentration: Limited. Language: Normal. Fund of knowledge: Adequate. Mood: Patient refused to answer. Patient does not appear to be labile, depressed, just very angry. Pt. is noted to be very agitated for unknown reason, hard to re-direct. Pt. finally calmed down somewhat when three male staff were trying to de-escalate her. Pt. has many personality issues at present. Affect: Inappropriate, reactive, agitates easily and then is tangential about nothing that is a realistic factor in her care. Pt. does not appear to be reliable in her statements or presentation. DIAGNOSES: 1. Schizoaffective disorder. ASSESSMENT: Patient is a 56-year-old female who has multiple admissions to this unit. Patient was very angry through assessment with provider. Patient continued to yell and scream for no apparent reason, without any provocation. Patient does not appear to be able to be in any behavioral control. Patient is highly agitated, does not appear anxious but states she is at a 10/10 level. Patient states "I am constantly(anxious). Patient reports her baseline depression is 3/10, reports anxiety as "I don't know"/10. Patient currently states her depression as 8/10, then states "I don't know", anxiety is as stated by pt. 1010. Pt. states she slept "Off and on, a little better". Pt. also states she had leg and groin pain that interfered with her sleep. Pt. then reports, "I don't know how many hours I slept, How am I supposed to keep track of that?". Staff charted she slept well for 6.5 hours with eyes closed. Per prior record patient appears to come in frequently after altercations or arguments with her roommates or housing peers. MANAGEMENT PLAN: Patient to be continually assessed and evaluated. Maintain safety precautions. Medications to be changed in effort to decrease symptoms. To be transferred to [facility] when bed is available due to poor mood stabilization, continued thoughts of hurting herself and others, increasing aggressive behavior. Patient to attend groups and participate in unit programming and activities to develop effective coping strategies if able. Patient to be engaged in discharge planning process to ensure safe and effective discharge plan if able. If discharged home, patient to follow-up with primary care physician upon discharge. Patient to resume therapy and medication management services upon discharge. Quetiapine increased to 400 mg po qhs for better mood stabilization, Zyprexa 5 mg increased to BID for anxiety/mood support. TIME SPENT: 25 minutes. Provider did not discuss with patient that this was the provider's last day due to her agitated state and did not feel it would help or benefit this patient at this time. Pt. will be transferred to another provider for continued care. Vital Signs Vital Signs Date Time Temp Pulse Resp B/P Pulse Ox O2 Delivery O2 Flow Rate FiO2 10/19/16 06:45 98.0 86 18 130/71 Current Medications Current Medications Acetaminophen (Tylenol Tab) 650 mg Q4HP PRN PO PAIN / FEVER Last administered on 10/18/16 23:52; Start 10/13/16 at 00:30; Stop 11/12/16 at 00:29 Al Hydrox/Mg Hydrox/Simethicone (Mylanta) 30 ml Q4HP PRN PO HEARTBURN/ INDIGESTION; Start 10/13/16 at 00:30; Stop 11/12/16 at 00:29 Artificial Tears (Akwa Tears) 1 drop TIDP PRN OU DRY EYES Last administered on 10/19/16 08:05; Start 10/13/16 at 00:30; Stop 11/12/16 at 00:29 Aspirin (Ecotrin) 81 mg DAILY PO Last administered on 10/19/16 08:02; Start at 09:00; Stop 11/12/16 at 08:59 Buspirone HCl (Buspar) 15 mg BID PO Last administered on 10/14/16 08:48; Start 10/13/16 at 21:00; Stop 10/14/16 at 13:15; Status DC Buspirone HCl (Buspar) 15 mg QAM PO Last administered on 10/13/16 08:32; Start 10/13/16 at 09:00; Stop 10/13/16 at 13:05; Status DC Buspirone HCl (Buspar) 30 mg QHS PO Last administered on 10/13/16 01:42; Start 10/12/16 at 21:00; Stop 10/13/16 at 13:05; Status DC Calcium/Vitamin D (Oscal D) 500 mg BID PO Last administered on 10/19/16 08:02 ; Start 10/12/16 at 21:00; Stop 11/11/16 at 20:59 Cetirizine HCl (ZyrTEC) 10 mg DAILY PO Last administered on 10/19/16 08:02; Start 10/13/16 at 09:00; Stop 11/12/16 at 08:59 Docusate Sodium (Colace) 100 mg BID PO Last administered on 10/19/16 08:02; Start 10/12/16 at 21:00; Stop 11/11/16 at 20:59 Fluticasone Propionate (Cutivate 0.05%) Psoriasis Elbows BIDP PRN TOP RASH/ ITCHING Last administered on 10/19/16 08:06; Start 10/13/16 at 00:45; Stop at 00:44 Home Med (Med Rec Complete!) ASDIRECTED XX ; Start 10/12/16 at 19:15; Stop at 19:20; Status DC Ibuprofen (Advil) 600 mg Q6HP PRN PO PAIN Last administered on 10/13/16 21:34 ; Start 10/13/16 at 00:30; Stop 10/13/16 at 23:28; Status DC Ibuprofen (Advil) 600 mg Q6HP PRN PO MODERATE PAIN (PS 5-7) Last administered on 10/19/16 05:40; Start 10/13/16 at 23:30; Stop 11/12/16 at 23:29 Latanoprost (Xalatan 0.005% Op Soln) 1 drop QHS OU Last administered on 20:02; Start 10/12/16 at 21:00; Stop 11/11/16 at 20:59 Levothyroxine Sodium (Synthroid) 0.05 mg DAILY@06 PO Last administered on 05:36; Start 10/13/16 at 06:00; Stop 11/12/16 at 05:59 [place] Carbonate ([place] Carbonate) 300 mg QAM PO Last administered on 08:03; Start 10/14/16 at 09:00; Stop 11/13/16 at 08:59 [place] Carbonate ([place] Carbonate) 600 mg BID PO Last administered on 08:31; Start 10/12/16 at 21:00; Stop 10/13/16 at 13:05; Status DC [place] Carbonate ([place] Carbonate) 900 mg QHS PO Last administered on 20:02; Start 10/14/16 at 21:00; Stop 11/13/16 at 20:59 [place] Carbonate ([place] Carbonate) 900 mg QPM PO Last administered on 20:15; Start 10/13/16 at 21:00; Stop 10/14/16 at 16:05; Status DC Lurasidone HCl (Latuda) 40 mg DAILY@18 PO ; Start 10/12/16 at 18:00; Stop at 13:05; Status DC Magnesium Hydroxide (Milk Of Magnesia) 30 ml DAILYPRN PRN PO CONSTIPATION Last administered on 10/17/16 08:55; Start 10/13/16 at 00:30; Stop 11/12/16 at 00:29 Olanzapine (ZyPREXA) 5 mg QAM PO Last administered on 10/19/16 08:03; Start at 09:00; Stop 11/13/16 at 08:59 Omeprazole (PriLOSEC) 40 mg DAILY PO Last administered on 10/19/16 08:02; Start 10/13/16 at 09:00; Stop 11/12/16 at 08:59 Quetiapine Fumarate (SEROquel) 12.5 mg Q6HP PRN PO ANXIETY/AGITATION Last administered on 10/18/16 12:20; Start 10/14/16 at 13:15; Stop 11/13/16 at 13:14 Quetiapine Fumarate (SEROquel) 150 mg QHS PO Last administered on 10/13/16 01: 41; Start 10/12/16 at 21:00; Stop 10/13/16 at 13:05; Status DC Quetiapine Fumarate (SEROquel) 250 mg QHS PO Last administered on 10/15/16 22: 08; Start 10/15/16 at 21:00; Stop 10/16/16 at 10:56; Status DC Quetiapine Fumarate (SEROquel) 300 mg QHS PO Last administered on 10/14/16 21: 39; Start 10/13/16 at 21:00; Stop 10/15/16 at 10:30; Status DC Quetiapine Fumarate (SEROquel) 300 mg QHS PO Last administered on 10/18/16 21: 01; Start 10/16/16 at 21:00; Stop 11/15/16 at 20:59 Sertraline HCl (Zoloft) 50 mg DAILY PO Last administered on 10/19/16 08:03; Start 10/13/16 at 09:00; Stop 11/12/16 at 08:59 Ziprasidone (Geodon) 60 mg BID PO Last administered on 10/13/16 08:30; Start 10/12/16 at 21:00; Stop 10/13/16 at 13:05; Status DC Allergies Coded Allergies: Doxepin (Verified Allergy, Severe, SEIZURES, 11/26/12) Bupropion (Unverified Allergy, Unknown, "SPEEDS" UP, 10/12/16) Hydroxyzine (Verified Allergy, Unknown, 11/26/12) Chlorpromazine (Verified Adverse Reaction, Intermediate, EPS, 11/26/12) Thioridazine (Verified Adverse Reaction, Intermediate, EPS, 11/26/12) Trifluoperazine (Verified Adverse Reaction, Intermediate, EPS, 11/26/12) PATRICIA ODELL NP Oct 19, 2016 11:33
[2016-10-19] MEDS: ACETAMINOPHEN TAB 650MG DOSE (2X325MG) PO PRN (12:38)
[2016-10-19] MEDS ORDERED: TUBERCULIN PPD 5 UNITS/0.1 ML ID ONE (16:30)
[2016-10-19 18:00] VITALS: BP 138/78
[2016-10-19] MEDS: LATANOPROST 0.005% OPHTH SOLN 2.5 ML OU SCH (20:14)
[2016-10-19] MEDS: QUEtiapine FUMARATE 200 MG TAB PO SCH (22:03)
[2016-10-20] MEDS: LEVOTHYROXINE 0.05 MG TAB (50 MCG) PO SCH (06:09)
[2016-10-20 06:45] VITALS: BP 127/62
[2016-10-20] MEDS: DOCUSATE SODIUM 100 MG CAP PO SCH ×2 (08:07→20:37)
[2016-10-20] MEDS: OMEPRAZOLE 20 MG CAP PO SCH (08:08)
[2016-10-20] MEDS: CALCIUM/VITAMIN D 500 MG TAB PO SCH ×2 (08:08→20:37)
[2016-10-20] MEDS: SERTRALINE HCL 50 MG TAB PO SCH (08:08)
[2016-10-20] MEDS: ASPIRIN 81 MG ENTERIC TAB PO SCH (08:08)
[2016-10-20] MEDS: LITHIUM CARBONATE 300 MG CAP PO SCH ×2 (08:08→20:37)
[2016-10-20] MEDS: CETIRIZINE (ZyrTEC) 10 MG TAB PO SCH (08:08)
[2016-10-20] MEDS: OLANZapine 5 MG TAB PO SCH ×2 (08:08→20:37)
[2016-10-20] MEDS: POLYVINYL ALCOHOL OPHTH SOLN 15 ML(LIQUITEARS) OU PRN (08:10)
[2016-10-20] MEDS: ACETAMINOPHEN TAB 650MG DOSE (2X325MG) PO PRN (08:48)
[2016-10-20] MEDS: FLUTICASONE 0.05% CREAM 30GM (CUTIVATE) TOP PRN ×2 (08:48→21:47)
[2016-10-20] MEDS ORDERED: TUBERCULIN PPD 5 UNITS/0.1 ML ID SCH (10:00)
[2016-10-20] MEDS: IBUPROFEN 600 MG TAB PO PRN (13:04)
[2016-10-20] MEDS: MOM 30ML SUSPENSION UDC PO PRN (15:39)
--- NOTE | 2016-10-20 20:20 | IPNPDOC ---
[facility] Progress Note Progress Note DATE OF SERVICE: 10/20/16 HISTORY: Regional Account Manager met with patient today to assess treatment progress on inpatient unit. This is the first interaction between this telegraphic typewriter installer and patient. Per record, patient is a resident of [facility] housing services and goes to [facility] for her mental health needs. Patient states she self presented due to having suicidal ideation with a plan to cut herself. Patient reports she was thinking of cutting both of her wrists in response to feeling overwhelmed and being upset with people in her housing unit. Patient today reports anxiety level 7/10 , depression 2/10, denies suicidal and homicidal ideation, denies audiovisual hallucinations, and denies urge to engage in self-injurious behavior. Patient indicates current medication regimen is working "okay," denies side effects and then states to telegraphic typewriter installer, "well, 400 mg of Seroquel is a lot." When telegraphic typewriter installer inquires further, patient is evasive regarding medication side effects but eventually indicates she is not experiencing effects. Patient reports 5/10 leg pain, indicates she has reported to nursing and nursing is addressing. Patient states she has been attending groups although today experienced an "altercation, " clients to discuss further with telegraphic typewriter installer. Patient states she feels she is successfully developing coping mechanisms and the inpatient psychiatric environment, denies challenges with sleep and energy level, indicates appetite is stable. She declines to discuss discharge planning with patient today other than to state, when prepared, she plans to discharge back to her [facility] independent living apartment. Patient presents with no signs of acute distress at time of interaction. VITAL SIGNS: See below. NEW TEST RESULTS: No new results. MEDICAL HISTORY: Hypothyroidism GERD, Sleep apnea, Arthritis of both knees and left hip, glaucoma, obstructive sleep apnea eczema/psoriasis, chronic constipation. History of surgery includes: Thyroidectomy, left breast lumpectomy , tonsillectomy, colonoscopy 09/11 internal hemorrhoids. UDS on admit was negative. HCG pending EKG on 07/18/16 sinus rhythm, first-degree AV block, 78 BPM, borderline EKG, has been evaluated by PA who indicates follow-up post discharge CURRENT MEDICATIONS: See below. Per previous provider: Suncook 300 mg po q am, 900 mg po qhs for mood stabilization, Quetiapine 400 mg po qhs for mood stabilization/decrease in psychotic symptoms, zyprexa 5 mg po BID for linwood/ schizophrenia, sertraline 50 mg po q am for depression, seroquel 12.5 mg po q 6h prn for Agitation/anxiety/ AH. MENTAL STATUS EXAMINATION: Patient is 56-year-old female who presents as moderately disheveled, dressed in all clothing, makes intermittent eye contact ambulates front wheel walker, appears stated age. Speech: Is of increased rate, volume and articulation when she wants an answer, is slow, almost mute when she is asked any questions. Language: Intact. Thought processes: Unclear, not generally goal-directed Thought content: Irrational at times, illogical at times, circumstantial. Longer periods of lucidity. Abstract reasoning, Adequate. Associations: Circumstantial, tangential, paranoid. Description of abnormal or psychotic thoughts: Per EMR, patient is short tempered, is in behavioral control today. Patient currently denies audiovisual hallucinations, denies delusional thinking, denies paranoia. However, patient indicates she has heard voices and seeing images in the past, per EMR, experiences frequent bouts of paranoia and feels persecuted. Also per EMR, patient has a history of wanting to be physically aggressive toward others and suicidal ideation, and homicidal ideation Judgment: Poor Insight: Poor. Oriented to: Patient refused to answer. Recent and remote memory: Appears to be intact Attention span and concentration: Limited. Language: Normal. Fund of knowledge: Adequate. Mood: "I'd be just fine if it was less noisy." Patient appears anxious and depressed, is irritable and easily overwhelmed, easily overstimulated, mood lability noted during interaction Affect: Blunted, no brightening, has a physical response to elevated noise levels, generally congruent with mood DIAGNOSES: Schizoaffective disorder. ASSESSMENT: Patient is a 56-year-old female who has multiple admissions to this unit. Patient was irritable throughout assessment with provider today, however, did not raise voice toward telegraphic typewriter installer, answered most questions, became frustrated with noise level in hallway and on intercom system and at those times refused to interact with telegraphic typewriter installer. Patient was generally able to regain composure and reengage with telegraphic typewriter installer to complete assessment process. Patient reiterates today she is experiencing leg and groin pain, indicates nursing is aware and is addressing. Patient denies suicidal and homicidal ideation and is able to verbalize how to access supportive services on the unit if needed. Patient declines to discuss discharge planning with telegraphic typewriter installer date of entry. Per EMR, previous provider had begun process for patient to be transferred to [facility] due to need for long-term treatment to ensure patient safety and effective mood stabilization. Will continue to monitor patient's response to medications, monitor for medication side effects, evaluate patient's safety, resolution of suicidal ideation, and discharge readiness. MANAGEMENT PLAN: Continue current medication regimen Maintain safety precautions Patient to attend groups and participate in unit programming to develop coping strategies Engage patient in discharge planning process and arrange meeting with support system and TLS to ensure safe discharge planning when appropriate Patient to follow up with PCM upon discharge TIME SPENT: 35 minutes. Vital Signs Vital Signs Date Time Temp Pulse Resp B/P Pulse Ox O2 Delivery O2 Flow Rate FiO2 10/20/16 06:45 98.3 80 20 127/62 Current Medications Current Medications Acetaminophen (Tylenol Tab) 650 mg Q4HP PRN PO PAIN / FEVER Last administered on 10/20/16 08:48; Start 10/13/16 at 00:30; Stop 11/12/16 at 00:29 Al Hydrox/Mg Hydrox/Simethicone (Mylanta) 30 ml Q4HP PRN PO HEARTBURN/ INDIGESTION; Start 10/13/16 at 00:30; Stop 11/12/16 at 00:29 Artificial Tears (Akwa Tears) 1 drop TIDP PRN OU DRY EYES Last administered on 10/20/16 08:10; Start 10/13/16 at 00:30; Stop 11/12/16 at 00:29 Aspirin (Ecotrin) 81 mg DAILY PO Last administered on 10/20/16 08:08; Start at 09:00; Stop 11/12/16 at 08:59 Buspirone HCl (Buspar) 15 mg BID PO Last administered on 10/14/16 08:48; Start 10/13/16 at 21:00; Stop 10/14/16 at 13:15; Status DC Buspirone HCl (Buspar) 15 mg QAM PO Last administered on 10/13/16 08:32; Start 10/13/16 at 09:00; Stop 10/13/16 at 13:05; Status DC Buspirone HCl (Buspar) 30 mg QHS PO Last administered on 10/13/16 01:42; Start 10/12/16 at 21:00; Stop 10/13/16 at 13:05; Status DC Calcium/Vitamin D (Oscal D) 500 mg BID PO Last administered on 10/20/16 08:08 ; Start 10/12/16 at 21:00; Stop 11/11/16 at 20:59 Cetirizine HCl (ZyrTEC) 10 mg DAILY PO Last administered on 10/20/16 08:08; Start 10/13/16 at 09:00; Stop 11/12/16 at 08:59 Docusate Sodium (Colace) 100 mg BID PO Last administered on 10/20/16 08:07; Start 10/12/16 at 21:00; Stop 11/11/16 at 20:59 Fluticasone Propionate (Cutivate 0.05%) Psoriasis Elbows BIDP PRN TOP RASH/ ITCHING Last administered on 10/20/16 08:48; Start 10/13/16 at 00:45; Stop at 00:44 Home Med (Med Rec Complete!) ASDIRECTED XX ; Start 10/12/16 at 19:15; Stop at 19:20; Status DC Ibuprofen (Advil) 600 mg Q6HP PRN PO PAIN Last administered on 10/13/16 21:34 ; Start 10/13/16 at 00:30; Stop 10/13/16 at 23:28; Status DC Ibuprofen (Advil) 600 mg Q6HP PRN PO MODERATE PAIN (PS 5-7) Last administered on 10/20/16 13:04; Start 10/13/16 at 23:30; Stop 11/12/16 at 23:29 Latanoprost (Xalatan 0.005% Op Soln) 1 drop QHS OU Last administered on 20:14; Start 10/12/16 at 21:00; Stop 11/11/16 at 20:59 Levothyroxine Sodium (Synthroid) 0.05 mg DAILY@06 PO Last administered on 06:09; Start 10/13/16 at 06:00; Stop 11/12/16 at 05:59 Suncook Carbonate ([place] Carbonate) 300 mg QAM PO Last administered on 08:08; Start 10/14/16 at 09:00; Stop 11/13/16 at 08:59 Suncook Carbonate ([place] Carbonate) 600 mg BID PO Last administered on 08:31; Start 10/12/16 at 21:00; Stop 10/13/16 at 13:05; Status DC Suncook Carbonate ([place] Carbonate) 900 mg QHS PO Last administered on 20:14; Start 10/14/16 at 21:00; Stop 11/13/16 at 20:59 Suncook Carbonate ([place] Carbonate) 900 mg QPM PO Last administered on 20:15; Start 10/13/16 at 21:00; Stop 10/14/16 at 16:05; Status DC Lurasidone HCl (Latuda) 40 mg DAILY@18 PO ; Start 10/12/16 at 18:00; Stop at 13:05; Status DC Magnesium Hydroxide (Milk Of Magnesia) 30 ml DAILYPRN PRN PO CONSTIPATION Last administered on 10/20/16 15:39; Start 10/13/16 at 00:30; Stop 11/12/16 at 00:29 Non-Formulary Medication ( See Comment Field Below ) SEE COMMENTS SECTION 1T @10 XX ; Start 10/21/16 at 10:00; Stop 10/22/16 at 09:59; Status UNV Non-Formulary Medication ( See Comment Field Below ) SEE LABEL COMMENTS DAILY XX ; Start 10/19/16 at 09:00; Stop 10/20/16 at 10:05; Status DC Non-Formulary Medication ( See Comment Field Below ) SEE LABEL COMMENTS SECTION 1T@10 XX ; Start 10/22/16 at 10:00; Stop 10/22/16 at 23:59 Olanzapine (ZyPREXA) 5 mg BID PO Last administered on 10/20/16 08:08; Start at 21:00; Stop 11/18/16 at 20:59 Olanzapine (ZyPREXA) 5 mg QAM PO Last administered on 10/19/16 08:03; Start at 09:00; Stop 10/19/16 at 16:35; Status DC Omeprazole (PriLOSEC) 40 mg DAILY PO Last administered on 10/20/16 08:08; Start 10/13/16 at 09:00; Stop 11/12/16 at 08:59 Quetiapine Fumarate (SEROquel) 12.5 mg Q6HP PRN PO ANXIETY/AGITATION Last administered on 10/18/16 12:20; Start 10/14/16 at 13:15; Stop 11/13/16 at 13:14 Quetiapine Fumarate (SEROquel) 150 mg QHS PO Last administered on 10/13/16 01: 41; Start 10/12/16 at 21:00; Stop 10/13/16 at 13:05; Status DC Quetiapine Fumarate (SEROquel) 250 mg QHS PO Last administered on 10/15/16 22: 08; Start 10/15/16 at 21:00; Stop 10/16/16 at 10:56; Status DC Quetiapine Fumarate (SEROquel) 300 mg QHS PO Last administered on 10/14/16 21: 39; Start 10/13/16 at 21:00; Stop 10/15/16 at 10:30; Status DC Quetiapine Fumarate (SEROquel) 300 mg QHS PO Last administered on 10/18/16 21: 01; Start 10/16/16 at 21:00; Stop 10/19/16 at 16:35; Status DC Quetiapine Fumarate (SEROquel) 400 mg QHS PO Last administered on 10/19/16 22: 03; Start 10/19/16 at 21:00; Stop 11/18/16 at 20:59 Sertraline HCl (Zoloft) 50 mg DAILY PO Last administered on 10/20/16 08:08; Start 10/13/16 at 09:00; Stop 11/12/16 at 08:59 Tuberculin PPD (Aplisol, Ppd) 5 units 1T@10 ID Last administered on 10/20/16 13:02; Start 10/20/16 at 10:00; Stop 10/20/16 at 23:59 Ziprasidone (Geodon) 60 mg BID PO Last administered on 10/13/16 08:30; Start 10/12/16 at 21:00; Stop 10/13/16 at 13:05; Status DC Allergies Coded Allergies: Doxepin (Verified Allergy, Severe, SEIZURES, 11/26/12) Bupropion (Unverified Allergy, Unknown, "SPEEDS" UP, 10/12/16) Hydroxyzine (Verified Allergy, Unknown, 11/26/12) Chlorpromazine (Verified Adverse Reaction, Intermediate, EPS, 11/26/12) Thioridazine (Verified Adverse Reaction, Intermediate, EPS, 11/26/12) Trifluoperazine (Verified Adverse Reaction, Intermediate, EPS, 11/26/12) Bobbi Knowles Oct 20, 2016 20:20 Start 10/13/16 at 21:00; Stop 10/14/16 at 13:15; Status DC Buspirone HCl (Buspar) 15 mg QAM PO Last administered on 10/13/16 08:32; Start 10/13/16 at 09:00; Stop 10/13/16 at 13:05; Status DC Buspirone HCl (Buspar) 30 mg QHS PO Last administered on 10/13/16 01:42; Start 10/12/16 at 21:00; Stop 10/13/16 at 13:05; Status DC Calcium/Vitamin D (Oscal D) 500 mg BID PO Last administered on 10/20/16 08:08 ; Start 10/12/16 at 21:00; Stop 11/11/16 at 20:59 Cetirizine HCl (ZyrTEC) 10 mg DAILY PO Last administered on 10/20/16 08:08; Start 10/13/16 at 09:00; Stop 11/12/16 at 08:59 Docusate Sodium (Colace) 100 mg BID PO Last administered on 10/20/16 08:07; Start 10/12/16 at 21:00; Stop 11/11/16 at 20:59 Fluticasone Propionate (Cutivate 0.05%) Psoriasis Elbows BIDP PRN TOP RASH/ ITCHING Last administered on 10/20/16 08:48; Start 10/13/16 at 00:45; Stop at 00:44 Home Med (Med Rec Complete!) ASDIRECTED XX ; Start 10/12/16 at 19:15; Stop at 19:20; Status DC Ibuprofen (Advil) 600 mg Q6HP PRN PO PAIN Last administered on 10/13/16 21:34 ; Start 10/13/16 at 00:30; Stop 10/13/16 at 23:28; Status DC Ibuprofen (Advil) 600 mg Q6HP PRN PO MODERATE PAIN (PS 5-7) Last administered on 10/20/16 13:04; Start 10/13/16 at 23:30; Stop 11/12/16 at 23:29 Latanoprost (Xalatan 0.005% Op Soln) 1 drop QHS OU Last administered on 20:14; Start 10/12/16 at 21:00; Stop 11/11/16 at 20:59 Levothyroxine Sodium (Synthroid) 0.05 mg DAILY@06 PO Last administered on 06:09; Start 10/13/16 at 06:00; Stop 11/12/16 at 05:59 Suncook Carbonate ([place] Carbonate) 300 mg QAM PO Last administered on 08:08; Start 10/14/16 at 09:00; Stop 11/13/16 at 08:59 Suncook Carbonate ([place] Carbonate) 600 mg BID PO Last administered on 08:31; Start 10/12/16 at 21:00; Stop 10/13/16 at 13:05; Status DC Suncook Carbonate ([place] Carbonate) 900 mg QHS PO Last administered on 20:14; Start 10/14/16 at 21:00; Stop 11/13/16 at 20:59 Suncook Carbonate ([place] Carbonate) 900 mg QPM PO Last administered on 20:15; Start 10/13/16 at 21:00; Stop 10/14/16 at 16:05; Status DC Lurasidone HCl (Latuda) 40 mg DAILY@18 PO ; Start 10/12/16 at 18:00; Stop at 13:05; Status DC Magnesium Hydroxide (Milk Of Magnesia) 30 ml DAILYPRN PRN PO CONSTIPATION Last administered on 10/20/16 15:39; Start 10/13/16 at 00:30; Stop 11/12/16 at 00:29 Non-Formulary Medication ( See Comment Field Below ) SEE COMMENTS SECTION 1T @10 XX ; Start 10/21/16 at 10:00; Stop 10/22/16 at 09:59; Status UNV Non-Formulary Medication ( See Comment Field Below ) SEE LABEL COMMENTS DAILY XX ; Start 10/19/16 at 09:00; Stop 10/20/16 at 10:05; Status DC Non-Formulary Medication ( See Comment Field Below ) SEE LABEL COMMENTS SECTION 1T@10 XX ; Start 10/22/16 at 10:00; Stop 10/22/16 at 23:59 Olanzapine (ZyPREXA) 5 mg BID PO Last administered on 10/20/16 08:08; Start at 21:00; Stop 11/18/16 at 20:59 Olanzapine (ZyPREXA) 5 mg QAM PO Last administered on 10/19/16 08:03; Start at 09:00; Stop 10/19/16 at 16:35; Status DC Omeprazole (PriLOSEC) 40 mg DAILY PO Last administered on 10/20/16 08:08; Start 10/13/16 at 09:00; Stop 11/12/16 at 08:59 Quetiapine Fumarate (SEROquel) 12.5 mg Q6HP PRN PO ANXIETY/AGITATION Last administered on 10/18/16 12:20; Start 10/14/16 at 13:15; Stop 11/13/16 at 13:14 Quetiapine Fumarate (SEROquel) 150 mg QHS PO Last administered on 10/13/16 01: 41; Start 10/12/16 at 21:00; Stop 10/13/16 at 13:05; Status DC Quetiapine Fumarate (SEROquel) 250 mg QHS PO Last administered on 10/15/16 22: 08; Start 10/15/16 at 21:00; Stop 10/16/16 at 10:56; Status DC Quetiapine Fumarate (SEROquel) 300 mg QHS PO Last administered on 10/14/16 21: 39; Start 10/13/16 at 21:00; Stop 10/15/16 at 10:30; Status DC Quetiapine Fumarate (SEROquel) 300 mg QHS PO Last administered on 10/18/16 21: 01; Start 10/16/16 at 21:00; Stop 10/19/16 at 16:35; Status DC Quetiapine Fumarate (SEROquel) 400 mg QHS PO Last administered on 10/19/16 22: 03; Start 10/19/16 at 21:00; Stop 11/18/16 at 20:59 Sertraline HCl (Zoloft) 50 mg DAILY PO Last administered on 10/20/16 08:08; Start 10/13/16 at 09:00; Stop 11/12/16 at 08:59 Tuberculin PPD (Aplisol, Ppd) 5 units 1T@10 ID Last administered on 10/20/16 13:02; Start 10/20/16 at 10:00; Stop 10/20/16 at 23:59 Ziprasidone (Geodon) 60 mg BID PO Last administered on 10/13/16 08:30; Start 10/12/16 at 21:00; Stop 10/13/16 at 13:05; Status DC Allergies Coded Allergies: Doxepin (Verified Allergy, Severe, SEIZURES, 11/26/12) Bupropion (Unverified Allergy, Unknown, "SPEEDS" UP, 10/12/16) Hydroxyzine (Verified Allergy, Unknown, 11/26/12) Chlorpromazine (Verified Adverse Reaction, Intermediate, EPS, 11/26/12) Thioridazine (Verified Adverse Reaction, Intermediate, EPS, 11/26/12) Trifluoperazine (Verified Adverse Reaction, Intermediate, EPS, 11/26/12) Bobbi Knowles Oct 20, 2016 20:20
[2016-10-20] MEDS: LATANOPROST 0.005% OPHTH SOLN 2.5 ML OU SCH (20:37)
[2016-10-20] MEDS: QUEtiapine FUMARATE 200 MG TAB PO SCH (21:47)
[2016-10-21] MEDS: LEVOTHYROXINE 0.05 MG TAB (50 MCG) PO SCH (06:24)
[2016-10-21 06:54] VITALS: BP 131/74
[2016-10-21] MEDS: OMEPRAZOLE 20 MG CAP PO SCH (08:02)
[2016-10-21] MEDS: CETIRIZINE (ZyrTEC) 10 MG TAB PO SCH (08:02)
[2016-10-21] MEDS: CALCIUM/VITAMIN D 500 MG TAB PO SCH ×2 (08:02→20:24)
[2016-10-21] MEDS: FLUTICASONE 0.05% CREAM 30GM (CUTIVATE) TOP PRN ×2 (08:03→20:26)
[2016-10-21] MEDS: SERTRALINE HCL 50 MG TAB PO SCH (08:03)
[2016-10-21] MEDS: POLYVINYL ALCOHOL OPHTH SOLN 15 ML(LIQUITEARS) OU PRN (08:03)
[2016-10-21] MEDS: LITHIUM CARBONATE 300 MG CAP PO SCH ×2 (08:03→20:24)
[2016-10-21] MEDS: OLANZapine 5 MG TAB PO SCH ×2 (08:03→20:25)
[2016-10-21] MEDS: DOCUSATE SODIUM 100 MG CAP PO SCH ×2 (08:03→20:25)
[2016-10-21] MEDS: ASPIRIN 81 MG ENTERIC TAB PO SCH (08:03)
[2016-10-21] MEDS: ACETAMINOPHEN TAB 650MG DOSE (2X325MG) PO PRN (08:31)
[2016-10-21] MEDS ORDERED: PPD DOCUMENTATION ENTRY MISC XX SCH (10:00)
[2016-10-21 11:28] LABS: CONTROL LINE HCG INT CTR LINE PRESENT
--- NOTE | 2016-10-21 12:39 | IPNPDOC ---
[facility] Progress Note Progress Note DATE OF SERVICE: 10/21/16 HISTORY: Yacht Master met with patient today to assess treatment progress on inpatient unit. This was the second interaction between this mortgage or loan underwriter and patient. Patient today reports anxiety level 6/10, depression 4/10, denies suicidal and homicidal ideation, denies audiovisual hallucinations, and denies urge to engage in self-injurious behavior. Patient indicates she continues to adjust to current medication regimen, initially denies medication side effects, then states she occasionally feels sedated due to the Seroquel singing adjustment made by previous provider, and indicates dosing adjustment is "starting" to be effective in helping to improve her sleep and mood. Patient agrees to continue to monitor her response to medications and for side effects. Patient denies physical pain at time of interaction today. Patient states she has been attending groups, denies recent emotional outbursts, initiates conversation with mortgage or loan underwriter regarding outburst from yesterday stating, "yes, I had an outburst, but I was able to calm myself down without any medication, I feel like I'm starting to make progress." Patient states she feels she is successfully developing coping mechanisms and the inpatient psychiatric environment, denies challenges with sleep and energy level, indicates appetite is stable. Patient again declines to discuss discharge planning in detail with mortgage or loan underwriter today but reiterates, when prepared, is hopeful she'll be able to discharge back to [facility], is vacillating between feeling she may need CR or returning to independent living level. Patient presents with no signs of acute distress at time of interaction. VITAL SIGNS: See below. NEW TEST RESULTS: No new results. MEDICAL HISTORY: Hypothyroidism GERD, Sleep apnea, Arthritis of both knees and left hip, glaucoma, obstructive sleep apnea eczema/psoriasis, chronic constipation. History of surgery includes: Thyroidectomy, left breast lumpectomy , tonsillectomy, colonoscopy 09/11 internal hemorrhoids. UDS on admit was negative. HCG negative Bey[place] level 10/12/16 0.91, 10/17/16 0.87 EKG on 07/18/16 sinus rhythm, first-degree AV block, 78 BPM, borderline EKG, has been evaluated by PA who indicates follow-up post discharge CURRENT MEDICATIONS: See below. Per previous provider: Bey[place] 300 mg po q am, 900 mg po qhs for mood stabilization, Quetiapine 400 mg po qhs for mood stabilization/decrease in psychotic symptoms, zyprexa 5 mg po bid for linwood/ schizophrenia, sertraline 50 mg po q am for depression, seroquel 12.5 mg po q 6h prn for Agitation/anxiety/AH. MENTAL STATUS EXAMINATION: Patient is 56-year-old female who presents as mildly disheveled, dressed in own clothing, makes better eye contact today, ambulates front wheel walker, appears stated age. Speech: Is of increased rate, pressured at times, of normal volume today Language: Intact. Thought processes: Clear today, generally goal-directed Thought content: Irrational at times, illogical at times, circumstantial. Longer periods of lucidity. Abstract reasoning, Adequate. Associations: Circumstantial, tangential, paranoid at times Description of abnormal or psychotic thoughts: Per EMR, patient is short tempered, is in behavioral control today. Patient currently denies audiovisual hallucinations, denies delusional thinking, denies paranoia. However, patient indicates she has heard voices and seeing images in the past, per EMR, experiences frequent bouts of paranoia and feels persecuted. Also per EMR, patient has a history of wanting to be physically aggressive toward others and suicidal ideation, and homicidal ideation Judgment: Poor Insight: Poor. Oriented to: Person, place, time, situation Recent and remote memory: Appears to be intact Attention span and concentration: Limited. Language: Normal. Fund of knowledge: Adequate. Mood: "I'm anxious, I'm always anxious, and I'm still depressed." Patient appears anxious and depressed, is irritable at times and easily overwhelmed, easily overstimulated, mood lability noted during interaction Affect: Blunted, no brightening, has a physical response to elevated noise levels, generally congruent with mood DIAGNOSES: Schizoaffective disorder. ASSESSMENT: Patient is a 56-year-old female who has multiple admissions to this unit. Patient was less irritable today during assessment and did not raise voice toward mortgage or loan underwriter, answered most questions, became frustrated with noise level in hallway and on intercom system and at those times refused to interact with mortgage or loan underwriter. Patient was generally able to regain composure and reengage with mortgage or loan underwriter to complete assessment process. Patient denies suicidal and homicidal ideation and is able to verbalize how to access supportive services on the unit if needed. Patient declines to discuss discharge planning with mortgage or loan underwriter date of entry. Per EMR, previous provider had begun process for patient to be transferred to [facility] due to need for long-term treatment to ensure patient safety and effective mood stabilization. Will continue to monitor patient's response to medications, monitor for medication side effects, evaluate patient' s safety, resolution of suicidal ideation, and discharge readiness. MANAGEMENT PLAN: Continue current medication regimen Check lithium level 10/24/15 Maintain safety precautions Patient to attend groups and participate in unit programming to develop coping strategies Engage patient in discharge planning process and arrange meeting with support system and TLS to ensure safe discharge planning when appropriate Patient to follow up with PCM upon discharge TIME SPENT: 35 minutes. Vital Signs Vital Signs Date Time Temp Pulse Resp B/P Pulse Ox O2 Delivery O2 Flow Rate FiO2 10/21/16 06:54 95.7 72 20 131/74 Laboratory Data 24H Labs Laboratory Tests 2 10/21/16 11:00: Human Chorionic Gonadotropin, Qual NEGATIVE Current Medications Current Medications Acetaminophen (Tylenol Tab) 650 mg Q4HP PRN PO PAIN / FEVER Last administered on 10/21/16 08:31; Start 10/13/16 at 00:30; Stop 11/12/16 at 00:29 Al Hydrox/Mg Hydrox/Simethicone (Mylanta) 30 ml Q4HP PRN PO HEARTBURN/ INDIGESTION; Start 10/13/16 at 00:30; Stop 11/12/16 at 00:29 Artificial Tears (Akwa Tears) 1 drop TIDP PRN OU DRY EYES Last administered on 10/21/16 08:03; Start 10/13/16 at 00:30; Stop 11/12/16 at 00:29 Aspirin (Ecotrin) 81 mg DAILY PO Last administered on 10/21/16 08:03; Start at 09:00; Stop 11/12/16 at 08:59 Buspirone HCl (Buspar) 15 mg BID PO Last administered on 10/14/16 08:48; Start 10/13/16 at 21:00; Stop 10/14/16 at 13:15; Status DC Buspirone HCl (Buspar) 15 mg QAM PO Last administered on 10/13/16 08:32; Start 10/13/16 at 09:00; Stop 10/13/16 at 13:05; Status DC Buspirone HCl (Buspar) 30 mg QHS PO Last administered on 10/13/16 01:42; Start 10/12/16 at 21:00; Stop 10/13/16 at 13:05; Status DC Calcium/Vitamin D (Oscal D) 500 mg BID PO Last administered on 10/21/16 08:02 ; Start 10/12/16 at 21:00; Stop 11/11/16 at 20:59 Cetirizine HCl (ZyrTEC) 10 mg DAILY PO Last administered on 10/21/16 08:02; Start 10/13/16 at 09:00; Stop 11/12/16 at 08:59 Docusate Sodium (Colace) 100 mg BID PO Last administered on 10/21/16 08:03; Start 10/12/16 at 21:00; Stop 11/11/16 at 20:59 Fluticasone Propionate (Cutivate 0.05%) Psoriasis Elbows BIDP PRN TOP RASH/ ITCHING Last administered on 10/21/16 08:03; Start 10/13/16 at 00:45; Stop at 00:44 Home Med (Med Rec Complete!) ASDIRECTED XX ; Start 10/12/16 at 19:15; Stop at 19:20; Status DC Ibuprofen (Advil) 600 mg Q6HP PRN PO PAIN Last administered on 10/13/16 21:34 ; Start 10/13/16 at 00:30; Stop 10/13/16 at 23:28; Status DC Ibuprofen (Advil) 600 mg Q6HP PRN PO MODERATE PAIN (PS 5-7) Last administered on 10/20/16 13:04; Start 10/13/16 at 23:30; Stop 11/12/16 at 23:29 Latanoprost (Xalatan 0.005% Op Soln) 1 drop QHS OU Last administered on 20:37; Start 10/12/16 at 21:00; Stop 11/11/16 at 20:59 Levothyroxine Sodium (Synthroid) 0.05 mg DAILY@06 PO Last administered on 06:24; Start 10/13/16 at 06:00; Stop 11/12/16 at 05:59 Beyerville Carbonate ([place] Carbonate) 300 mg QAM PO Last administered on 08:03; Start 10/14/16 at 09:00; Stop 11/13/16 at 08:59 Beyerville Carbonate ([place] Carbonate) 600 mg BID PO Last administered on 08:31; Start 10/12/16 at 21:00; Stop 10/13/16 at 13:05; Status DC Beyerville Carbonate (Bey[place] Carbonate) 900 mg QHS PO Last administered on 20:37; Start 10/14/16 at 21:00; Stop 11/13/16 at 20:59 Beyerville Carbonate ([place] Carbonate) 900 mg QPM PO Last administered on 20:15; Start 10/13/16 at 21:00; Stop 10/14/16 at 16:05; Status DC Lurasidone HCl (Latuda) 40 mg DAILY@18 PO ; Start 10/12/16 at 18:00; Stop at 13:05; Status DC Magnesium Hydroxide (Milk Of Magnesia) 30 ml DAILYPRN PRN PO CONSTIPATION Last administered on 10/20/16 15:39; Start 10/13/16 at 00:30; Stop 11/12/16 at 00:29 Non-Formulary Medication ( See Comment Field Below ) SEE COMMENTS SECTION 1T @10 XX ; Start 10/21/16 at 10:00; Stop 10/22/16 at 09:59; Status UNV Non-Formulary Medication ( See Comment Field Below ) SEE LABEL COMMENTS DAILY XX ; Start 10/19/16 at 09:00; Stop 10/20/16 at 10:05; Status DC Non-Formulary Medication ( See Comment Field Below ) SEE LABEL COMMENTS SECTION 1T@10 XX ; Start 10/22/16 at 10:00; Stop 10/22/16 at 23:59 Olanzapine (ZyPREXA) 5 mg BID PO Last administered on 10/21/16 08:03; Start at 21:00; Stop 11/18/16 at 20:59 Olanzapine (ZyPREXA) 5 mg QAM PO Last administered on 10/19/16 08:03; Start at 09:00; Stop 10/19/16 at 16:35; Status DC Omeprazole (PriLOSEC) 40 mg DAILY PO Last administered on 10/21/16 08:02; Start 10/13/16 at 09:00; Stop 11/12/16 at 08:59 Quetiapine Fumarate (SEROquel) 12.5 mg Q6HP PRN PO ANXIETY/AGITATION Last administered on 10/18/16 12:20; Start 10/14/16 at 13:15; Stop 11/13/16 at 13:14 Quetiapine Fumarate (SEROquel) 150 mg QHS PO Last administered on 10/13/16 01: 41; Start 10/12/16 at 21:00; Stop 10/13/16 at 13:05; Status DC Quetiapine Fumarate (SEROquel) 250 mg QHS PO Last administered on 10/15/16 22: 08; Start 10/15/16 at 21:00; Stop 10/16/16 at 10:56; Status DC Quetiapine Fumarate (SEROquel) 300 mg QHS PO Last administered on 10/14/16 21: 39; Start 10/13/16 at 21:00; Stop 10/15/16 at 10:30; Status DC Quetiapine Fumarate (SEROquel) 300 mg QHS PO Last administered on 10/18/16 21: 01; Start 10/16/16 at 21:00; Stop 10/19/16 at 16:35; Status DC Quetiapine Fumarate (SEROquel) 400 mg QHS PO Last administered on 10/20/16 21: 47; Start 10/19/16 at 21:00; Stop 11/18/16 at 20:59 Sertraline HCl (Zoloft) 50 mg DAILY PO Last administered on 10/21/16 08:03; Start 10/13/16 at 09:00; Stop 11/12/16 at 08:59 Tuberculin PPD (Aplisol, Ppd) 5 units 1T@10 ID Last administered on 10/20/16 13:02; Start 10/20/16 at 10:00; Stop 10/20/16 at 23:59; Status DC Ziprasidone (Geodon) 60 mg BID PO Last administered on 2/16/17at 08:30; Start 10/12/16 at 21:00; Stop 10/13/16 at 13:05; Status DC Allergies Coded Allergies: Doxepin (Verified Allergy, Severe, SEIZURES, 11/26/12) Bupropion (Unverified Allergy, Unknown, "SPEEDS" UP, 10/12/16) Hydroxyzine (Verified Allergy, Unknown, 11/26/12) Chlorpromazine (Verified Adverse Reaction, Intermediate, EPS, 11/26/12) Thioridazine (Verified Adverse Reaction, Intermediate, EPS, 11/26/12) Trifluoperazine (Verified Adverse Reaction, Intermediate, EPS, 11/26/12) Bobbi Knowles Oct 21, 2016 12:39 Bobbi Knowles Oct 21, 2016 12:39
[2016-10-21 18:00] VITALS: BP 151/68
[2016-10-21] MEDS: LATANOPROST 0.005% OPHTH SOLN 2.5 ML OU SCH (20:24)
[2016-10-21] MEDS: IBUPROFEN 600 MG TAB PO PRN (20:25)
[2016-10-21] MEDS: QUEtiapine FUMARATE 200 MG TAB PO SCH (21:20)
[2016-10-22] MEDS: LEVOTHYROXINE 0.05 MG TAB (50 MCG) PO SCH (06:06)
[2016-10-22 06:35] VITALS: BP 144/92
[2016-10-22] MEDS: CETIRIZINE (ZyrTEC) 10 MG TAB PO SCH (08:12)
[2016-10-22] MEDS: OMEPRAZOLE 20 MG CAP PO SCH (08:12)
[2016-10-22] MEDS: DOCUSATE SODIUM 100 MG CAP PO SCH ×2 (08:12→20:02)
[2016-10-22] MEDS: SERTRALINE HCL 50 MG TAB PO SCH (08:12)
[2016-10-22] MEDS: POLYVINYL ALCOHOL OPHTH SOLN 15 ML(LIQUITEARS) OU PRN (08:12)
[2016-10-22] MEDS: CALCIUM/VITAMIN D 500 MG TAB PO SCH ×2 (08:12→20:01)
[2016-10-22] MEDS: OLANZapine 5 MG TAB PO SCH ×2 (08:13→20:02)
[2016-10-22] MEDS: IBUPROFEN 600 MG TAB PO PRN ×2 (08:13→20:02)
[2016-10-22] MEDS: LITHIUM CARBONATE 300 MG CAP PO SCH ×2 (08:13→20:02)
[2016-10-22] MEDS: ASPIRIN 81 MG ENTERIC TAB PO SCH (08:14)
[2016-10-22] MEDS: MOM 30ML SUSPENSION UDC PO PRN (09:23)
[2016-10-22] MEDS ORDERED: PPD DOCUMENTATION ENTRY MISC XX SCH (10:00)
[2016-10-22] MEDS: ACETAMINOPHEN TAB 650MG DOSE (2X325MG) PO PRN (17:35)
[2016-10-22 18:29] VITALS: BP 131/63
[2016-10-22] MEDS: LATANOPROST 0.005% OPHTH SOLN 2.5 ML OU SCH (20:02)
[2016-10-22] MEDS: FLUTICASONE 0.05% CREAM 30GM (CUTIVATE) TOP PRN (20:04)
[2016-10-22] MEDS: QUEtiapine FUMARATE 200 MG TAB PO SCH (21:04)
[2016-10-23] MEDS: LEVOTHYROXINE 0.05 MG TAB (50 MCG) PO SCH (06:01)
[2016-10-23 06:46] VITALS: BP 138/82
[2016-10-23] MEDS: OMEPRAZOLE 20 MG CAP PO SCH (08:14)
[2016-10-23] MEDS: CETIRIZINE (ZyrTEC) 10 MG TAB PO SCH (08:15)
[2016-10-23] MEDS: CALCIUM/VITAMIN D 500 MG TAB PO SCH ×2 (08:15→20:20)
[2016-10-23] MEDS: OLANZapine 5 MG TAB PO SCH ×2 (08:15→20:20)
[2016-10-23] MEDS: LITHIUM CARBONATE 300 MG CAP PO SCH ×2 (08:15→20:20)
[2016-10-23] MEDS: DOCUSATE SODIUM 100 MG CAP PO SCH ×2 (08:15→20:20)
[2016-10-23] MEDS: SERTRALINE HCL 50 MG TAB PO SCH (08:15)
[2016-10-23] MEDS: ASPIRIN 81 MG ENTERIC TAB PO SCH (08:15)
[2016-10-23] MEDS: IBUPROFEN 600 MG TAB PO PRN ×2 (08:16→20:22)
[2016-10-23] MEDS: ACETAMINOPHEN TAB 650MG DOSE (2X325MG) PO PRN (08:16)
[2016-10-23] MEDS: FLUTICASONE 0.05% CREAM 30GM (CUTIVATE) TOP PRN ×2 (08:19→20:20)
[2016-10-23] MEDS: POLYVINYL ALCOHOL OPHTH SOLN 15 ML(LIQUITEARS) OU PRN (08:19)
[2016-10-23] MEDS: MOM 30ML SUSPENSION UDC PO PRN (10:26)
[2016-10-23 18:00] VITALS: BP 134/81
[2016-10-23] MEDS: LATANOPROST 0.005% OPHTH SOLN 2.5 ML OU SCH (20:20)
[2016-10-23] MEDS: QUEtiapine FUMARATE 200 MG TAB PO SCH (21:22)
[2016-10-24] MEDS: LEVOTHYROXINE 0.05 MG TAB (50 MCG) PO SCH (06:17)
[2016-10-24 06:52] VITALS: BP 156/78
[2016-10-24] MEDS: LITHIUM CARBONATE 300 MG CAP PO SCH ×2 (08:22→20:19)
[2016-10-24] MEDS: OLANZapine 5 MG TAB PO SCH ×2 (08:22→20:19)
[2016-10-24] MEDS: OMEPRAZOLE 20 MG CAP PO SCH (08:22)
[2016-10-24] MEDS: DOCUSATE SODIUM 100 MG CAP PO SCH ×2 (08:22→20:19)
[2016-10-24] MEDS: ASPIRIN 81 MG ENTERIC TAB PO SCH (08:22)
[2016-10-24] MEDS: FLUTICASONE 0.05% CREAM 30GM (CUTIVATE) TOP PRN ×2 (08:23→20:19)
[2016-10-24] MEDS: SERTRALINE HCL 50 MG TAB PO SCH (08:23)
[2016-10-24] MEDS: ACETAMINOPHEN TAB 650MG DOSE (2X325MG) PO PRN (08:23)
[2016-10-24] MEDS: CETIRIZINE (ZyrTEC) 10 MG TAB PO SCH (08:23)
[2016-10-24] MEDS: POLYVINYL ALCOHOL OPHTH SOLN 15 ML(LIQUITEARS) OU PRN (08:23)
[2016-10-24] MEDS: CALCIUM/VITAMIN D 500 MG TAB PO SCH ×2 (08:23→20:20)
[2016-10-24] MEDS: IBUPROFEN 600 MG TAB PO PRN ×2 (10:11→20:23)
[2016-10-24] MEDS: MOM 30ML SUSPENSION UDC PO PRN (12:15)
--- NOTE | 2016-10-24 17:10 | IPN ---
DATE: 10/24/2016 SUBJECTIVE: "I'm feeling a little better." OBJECTIVE: The patient is improving slowly. The patient is still depressed with psychomotor retardation but she is improving. Denies side effect from the medication. No evidence of psychotic symptoms. No auditory or visual hallucinations or delusions. The patient is motivated for treatment and is compliant with the medications. MENTAL STATUS EXAMINATION: The patient is dressed in [facility]. The patient is cooperative during the examination. Fair eye contact. Speech is slow and monotone. Mood is depressed and anxious but improving. Affect is restricted. No evidence of delusions or hallucinations. Memory is fair. The patient is fully oriented. Associations are intact. Thinking is logical. Thought content is appropriate. The patient is able to contract for safety and denies suicidal or homicidal ideation during the interview. Insight and judgment is limited. ASSESSMENT: Schizoaffective disorder. PLAN: 1. Zyprexa 5 mg by mouth twice a day. 2. Seroquel 400 mg by mouth at bedtime. 3. Brewer 900 mg by mouth at bedtime. 4. Brewer 300 mg by mouth every morning. 5. Zoloft 50 mg by mouth every morning. 6. Continue medication management, individual and group therapy.
[2016-10-24 18:00] VITALS: BP 135/67
[2016-10-24] MEDS: LATANOPROST 0.005% OPHTH SOLN 2.5 ML OU SCH (20:19)
[2016-10-24] MEDS: QUEtiapine FUMARATE 200 MG TAB PO SCH (21:33)
[2016-10-25] MEDS: IBUPROFEN 600 MG TAB PO PRN ×2 (05:00→20:14)
[2016-10-25] MEDS: ACETAMINOPHEN TAB 650MG DOSE (2X325MG) PO PRN ×2 (05:02→20:15)
[2016-10-25] MEDS: LEVOTHYROXINE 0.05 MG TAB (50 MCG) PO SCH (05:48)
[2016-10-25 06:49] VITALS: BP 152/78
[2016-10-25] MEDS: ASPIRIN 81 MG ENTERIC TAB PO SCH (08:05)
[2016-10-25] MEDS: OLANZapine 5 MG TAB PO SCH ×2 (08:05→20:14)
[2016-10-25] MEDS: CETIRIZINE (ZyrTEC) 10 MG TAB PO SCH (08:05)
[2016-10-25] MEDS: SERTRALINE HCL 50 MG TAB PO SCH (08:05)
[2016-10-25] MEDS: LITHIUM CARBONATE 300 MG CAP PO SCH ×2 (08:05→20:14)
[2016-10-25] MEDS: CALCIUM/VITAMIN D 500 MG TAB PO SCH ×2 (08:05→20:14)
[2016-10-25] MEDS: POLYVINYL ALCOHOL OPHTH SOLN 15 ML(LIQUITEARS) OU PRN (08:05)
[2016-10-25] MEDS: DOCUSATE SODIUM 100 MG CAP PO SCH ×2 (08:05→20:14)
[2016-10-25] MEDS: OMEPRAZOLE 20 MG CAP PO SCH (08:05)
[2016-10-25] MEDS: FLUTICASONE 0.05% CREAM 30GM (CUTIVATE) TOP PRN ×2 (08:37→20:17)
[2016-10-25] MEDS: NYSTATIN 100,000 UNITS/GM TOPICAL PWD 15 GM TOP SCH ×2 (13:00→20:14)
[2016-10-25] MEDS: LACTIC ACID 12% LOTION 225 GM BTL TOP SCH (13:01)
[2016-10-25 18:00] VITALS: BP 128/84
[2016-10-25] MEDS: LATANOPROST 0.005% OPHTH SOLN 2.5 ML OU SCH (20:14)
--- NOTE | 2016-10-25 20:48 | IPNPDOC ---
[facility] Progress Note Progress Note DATE OF SERVICE: 10/25/16 HISTORY: Agent Producer met with patient today to assess treatment progress on inpatient unit. Patient indicated she is feeling "better," reported anxiety level 3/10, depression 2/10, denies suicidal and homicidal ideation, denies audiovisual hallucinations, and denies urge to engage in self-injurious behavior. Patient indicates she feels current medication regimen is working well and she denies medication side effects. Patient denies physical pain at time of interaction today. Patient states she has been attending groups, denies recent emotional outbursts, initiates conversation with scientific writer regarding discharge and speaks openly about anxiety related to returning to independent living, but notes she does not want to go to [facility], informs scientific writer she feels prepared for a discharge planning meeting with TLS and is requesting to return to her apartment on . Patient also initiates conversation with scientific writer today regarding history of intermittent urge to be aggressive toward others, states to scientific writer "I know I've thought about it in the past, but I won't do it and I know I can stop myself, I'm not in a smack anybody." Patient denies history of HI, adds she has never had plan or intent to harm or kill others. Patient states she feels she has developed coping mechanisms which will help her live successfully alone and set boundaries with visitors, patient reiterates she struggles with feelings of loneliness and wanting friends but then having friends to stay too long in interrupt her daily routine and sleep pattern. Patient denies challenges with sleep and energy level , indicates appetite is stable. Patient presents with no signs of acute distress at time of interaction and indicates she feels positive and hopeful about discharge return to [facility]. VITAL SIGNS: See below. NEW TEST RESULTS: No new results. MEDICAL HISTORY: Hypothyroidism GERD, Sleep apnea, Arthritis of both knees and left hip, glaucoma, obstructive sleep apnea eczema/psoriasis, chronic constipation. History of surgery includes: Thyroidectomy, left breast lumpectomy , tonsillectomy, colonoscopy 09/11 internal hemorrhoids. UDS on admit was negative. HCG negative Talmage level 10/12/16 0.91, 10/17/16 0.87, 10/24/16 0.98 EKG on 07/18/16 sinus rhythm, first-degree AV block, 78 BPM, borderline EKG, has been evaluated by PA who indicates follow-up post discharge CURRENT MEDICATIONS: See below. Per previous provider: Talmage 300 mg po q am, 900 mg po qhs for mood stabilization, Quetiapine 400 mg po qhs for mood stabilization/decrease in psychotic symptoms, zyprexa 5 mg po bid for linwood/ schizophrenia, sertraline 50 mg po q am for depression, seroquel 12.5 mg po q 6h prn for Agitation/anxiety/AH. MENTAL STATUS EXAMINATION: Patient is 56-year-old female who presents as mildly disheveled, dressed in own clothing, makes good eye contact today, ambulates safely with front wheel walker, appears stated age. Speech: Is of normal rate, rhythm, volume, does not raise voice Language: Intact. Thought processes: Clear today, goal-directed Thought content: Rational, logical, no tangentiality or circumstantial thought noted today Abstract reasoning, Adequate. Associations: Appear intact, no persecutory or paranoid thinking Description of abnormal or psychotic thoughts: Patient currently denies audiovisual hallucinations, denies delusional thinking, denies paranoia. Judgment: Fair, signs of improvement Insight: Fair, signs of improvement Oriented to: Person, place, time, situation Recent and remote memory: Appears to be intact Attention span and concentration: Appears adequate Language: Normal. Fund of knowledge: Adequate. Mood: "I'm feeling better, starting to feel like I'm ready to go home. I get anxious when I think about it but I think I'm just about ready." Patient appears less anxious today, no signs of depression at time of interaction, no irritability or agitation, patient is not overly stimulated, and no mood lability noted during interaction Affect: Mild constriction, brightens frequently and appropriately, congruent with mood DIAGNOSES: Schizoaffective disorder. ASSESSMENT: Patient is a 56-year-old female who has multiple admissions to this unit. Patient exhibited no irritability today during assessment and did not raise voice toward scientific writer, answered most questions, did not exhibit signs of being frustrated with environmental noise level. Patient denies suicidal and homicidal ideation and is able to verbalize how to access supportive services on the unit if needed. Patient initiated conversation with scientific writer today about discharge planning and has spoken with assessment coordinator about her discharge desires. Patient is now looking appropriate for return to [facility], and is in agreement with return, indicates she feels that she is ready for TLS meeting which is scheduled to occur tomorrow, with discharge to follow on if appropriate. Will continue to monitor patient's response to medications, monitor for medication side effects, evaluate patient's safety, resolution of suicidal ideation, and discharge readiness. MANAGEMENT PLAN: Continue current medication regimen Check lithium level 10/24/15 - completed Maintain safety precautions Patient to attend groups and participate in unit programming to develop coping strategies Engage patient in discharge planning process and arrange meeting with support system and TLS to ensure safe discharge planning when appropriate Patient to follow up with PCM upon discharge TIME SPENT: 35 minutes. Vital Signs Vital Signs Date Time Temp Pulse Resp B/P Pulse Ox O2 Delivery O2 Flow Rate FiO2 10/25/16 06:49 95.3 79 16 152/78 Current Medications Current Medications Acetaminophen (Tylenol Tab) 650 mg Q4HP PRN PO PAIN / FEVER Last administered on 10/25/16 20:15; Start 10/13/16 at 00:30; Stop 11/12/16 at 00:29 Al Hydrox/Mg Hydrox/Simethicone (Mylanta) 30 ml Q4HP PRN PO HEARTBURN/ INDIGESTION; Start 10/13/16 at 00:30; Stop 11/12/16 at 00:29 Artificial Tears (Akwa Tears) 1 drop TIDP PRN OU DRY EYES Last administered on 10/25/16 08:05; Start 10/13/16 at 00:30; Stop 11/12/16 at 00:29 Aspirin (Ecotrin) 81 mg DAILY PO Last administered on 10/25/16 08:05; Start at 09:00; Stop 11/12/16 at 08:59 Buspirone HCl (Buspar) 15 mg BID PO Last administered on 10/14/16 08:48; Start 10/13/16 at 21:00; Stop 10/14/16 at 13:15; Status DC Buspirone HCl (Buspar) 15 mg QAM PO Last administered on 10/13/16 08:32; Start 10/13/16 at 09:00; Stop 10/13/16 at 13:05; Status DC Buspirone HCl (Buspar) 30 mg QHS PO Last administered on 10/13/16 01:42; Start 10/12/16 at 21:00; Stop 10/13/16 at 13:05; Status DC Calcium/Vitamin D (Oscal D) 500 mg BID PO Last administered on 10/25/16 20:14 ; Start 10/12/16 at 21:00; Stop 11/11/16 at 20:59 Cetirizine HCl (ZyrTEC) 10 mg DAILY PO Last administered on 10/25/16 08:05; Start 10/13/16 at 09:00; Stop 11/12/16 at 08:59 Docusate Sodium (Colace) 100 mg BID PO Last administered on 10/25/16 20:14; Start 10/12/16 at 21:00; Stop 11/11/16 at 20:59 Fluticasone Propionate (Cutivate 0.05%) Psoriasis Elbows BIDP PRN TOP RASH/ ITCHING Last administered on 10/25/16 20:17; Start 10/13/16 at 00:45; Stop at 00:44 Home Med (Med Rec Complete!) ASDIRECTED XX ; Start 10/12/16 at 19:15; Stop at 19:20; Status DC Ibuprofen (Advil) 600 mg Q6HP PRN PO PAIN Last administered on 10/13/16 21:34 ; Start 10/13/16 at 00:30; Stop 10/13/16 at 23:28; Status DC Ibuprofen (Advil) 600 mg Q6HP PRN PO MODERATE PAIN (PS 5-7) Last administered on 10/25/16 20:14; Start 10/13/16 at 23:30; Stop 11/12/16 at 23:29 Lactic Acid (Lac-Hydrin 12% Lotion) TO ARMS AND LEGS DAILY TOP Last administered on 10/25/16 13:01; Start 10/25/16 at 09:00; Stop 11/24/16 at 08:59 Latanoprost (Xalatan 0.005% Op Soln) 1 drop QHS OU Last administered on 20:14; Start 10/12/16 at 21:00; Stop 11/11/16 at 20:59 Levothyroxine Sodium (Synthroid) 0.05 mg DAILY@06 PO Last administered on 05:48; Start 10/13/16 at 06:00; Stop 11/12/16 at 05:59 Talmage Carbonate (Talmage Carbonate) 300 mg QAM PO Last administered on 08:05; Start 10/14/16 at 09:00; Stop 11/13/16 at 08:59 Talmage Carbonate (Talmage Carbonate) 600 mg BID PO Last administered on 08:31; Start 10/12/16 at 21:00; Stop 10/13/16 at 13:05; Status DC Talmage Carbonate (Talmage Carbonate) 900 mg QHS PO Last administered on 20:14; Start 10/14/16 at 21:00; Stop 11/13/16 at 20:59 Talmage Carbonate (Talmage Carbonate) 900 mg QPM PO Last administered on 20:15; Start 10/13/16 at 21:00; Stop 10/14/16 at 16:05; Status DC Lurasidone HCl (Latuda) 40 mg DAILY@18 PO ; Start 10/12/16 at 18:00; Stop at 13:05; Status DC Magnesium Hydroxide (Milk Of Magnesia) 30 ml DAILYPRN PRN PO CONSTIPATION Last administered on 10/24/16 12:15; Start 10/13/16 at 00:30; Stop 11/12/16 at 00:29 Non-Formulary Medication ( See Comment Field Below ) SEE COMMENTS SECTION 1T @10 XX ; Start 10/21/16 at 10:00; Stop 10/22/16 at 09:59; Status UNV Non-Formulary Medication ( See Comment Field Below ) SEE LABEL COMMENTS DAILY XX ; Start 10/19/16 at 09:00; Stop 10/20/16 at 10:05; Status DC Non-Formulary Medication ( See Comment Field Below ) SEE LABEL COMMENTS SECTION 1T@10 XX Last administered on 10/22/16 09:15; Start 10/22/16 at 10:00 ; Stop 10/22/16 at 23:59; Status DC Nystatin (Mycostatin Powder, Nystop) Apply to abdominal folds BID TOP Last administered on 10/25/16 20:14; Start 10/25/16 at 09:00; Stop 11/24/16 at 08:59 Olanzapine (ZyPREXA) 5 mg BID PO Last administered on 10/25/16 20:14; Start at 21:00; Stop 11/18/16 at 20:59 Olanzapine (ZyPREXA) 5 mg QAM PO Last administered on 10/19/16 08:03; Start at 09:00; Stop 10/19/16 at 16:35; Status DC Omeprazole (PriLOSEC) 40 mg DAILY PO Last administered on 10/25/16 08:05; Start 10/13/16 at 09:00; Stop 11/12/16 at 08:59 Patient Own Medication (Patient'S Own Med) Ammonium Lactate 12% Cr... DAILY TOP ; Start 10/26/16 at 09:00; Stop 10/26/16 at 09:00; Status DC Quetiapine Fumarate (SEROquel) 12.5 mg Q6HP PRN PO ANXIETY/AGITATION Last administered on 10/18/16 12:20; Start 10/14/16 at 13:15; Stop 11/13/16 at 13:14 Quetiapine Fumarate (SEROquel) 150 mg QHS PO Last administered on 10/13/16 01: 41; Start 10/12/16 at 21:00; Stop 10/13/16 at 13:05; Status DC Quetiapine Fumarate (SEROquel) 250 mg QHS PO Last administered on 10/15/16 22: 08; Start 10/15/16 at 21:00; Stop 10/16/16 at 10:56; Status DC Quetiapine Fumarate (SEROquel) 300 mg QHS PO Last administered on 10/14/16 21: 39; Start 10/13/16 at 21:00; Stop 10/15/16 at 10:30; Status DC Quetiapine Fumarate (SEROquel) 300 mg QHS PO Last administered on 10/18/16 21: 01; Start 10/16/16 at 21:00; Stop 10/19/16 at 16:35; Status DC Quetiapine Fumarate (SEROquel) 400 mg QHS PO Last administered on 10/24/16 21: 33; Start 10/19/16 at 21:00; Stop 11/18/16 at 20:59 Sertraline HCl (Zoloft) 50 mg DAILY PO Last administered on 10/25/16 08:05; Start 10/13/16 at 09:00; Stop 11/12/16 at 08:59 Tuberculin PPD (Aplisol, Ppd) 5 units 1T@10 ID Last administered on 10/20/16 13:02; Start 10/20/16 at 10:00; Stop 10/20/16 at 23:59; Status DC Ziprasidone (Geodon) 60 mg BID PO Last administered on 10/13/16 08:30; Start 10/12/16 at 21:00; Stop 10/13/16 at 13:05; Status DC Allergies Coded Allergies: Doxepin (Verified Allergy, Severe, SEIZURES, 11/26/12) Bupropion (Unverified Allergy, Unknown, "SPEEDS" UP, 10/12/16) Hydroxyzine (Verified Allergy, Unknown, 11/26/12) Chlorpromazine (Verified Adverse Reaction, Intermediate, EPS, 11/26/12) Thioridazine (Verified Adverse Reaction, Intermediate, EPS, 11/26/12) Trifluoperazine (Verified Adverse Reaction, Intermediate, EPS, 11/26/12) Bobbi Knowles Oct 25, 2016 20:48
[2016-10-25] MEDS: QUEtiapine FUMARATE 200 MG TAB PO SCH (21:46)
[2016-10-26] MEDS: LEVOTHYROXINE 0.05 MG TAB (50 MCG) PO SCH (05:54)
[2016-10-26 06:39] VITALS: BP 128/73
[2016-10-26] MEDS: CETIRIZINE (ZyrTEC) 10 MG TAB PO SCH (08:09)
[2016-10-26] MEDS: OLANZapine 5 MG TAB PO SCH ×2 (08:09→20:15)
[2016-10-26] MEDS: DOCUSATE SODIUM 100 MG CAP PO SCH ×2 (08:09→20:15)
[2016-10-26] MEDS: POLYVINYL ALCOHOL OPHTH SOLN 15 ML(LIQUITEARS) OU PRN (08:09)
[2016-10-26] MEDS: LITHIUM CARBONATE 300 MG CAP PO SCH ×2 (08:09→20:15)
[2016-10-26] MEDS: SERTRALINE HCL 50 MG TAB PO SCH (08:09)
[2016-10-26] MEDS: CALCIUM/VITAMIN D 500 MG TAB PO SCH ×2 (08:10→20:15)
[2016-10-26] MEDS: OMEPRAZOLE 20 MG CAP PO SCH (08:10)
[2016-10-26] MEDS: NYSTATIN 100,000 UNITS/GM TOPICAL PWD 15 GM TOP SCH ×2 (08:10→20:13)
[2016-10-26] MEDS: IBUPROFEN 600 MG TAB PO PRN ×2 (08:10→22:50)
[2016-10-26] MEDS: ASPIRIN 81 MG ENTERIC TAB PO SCH (08:10)
[2016-10-26] MEDS: LACTIC ACID 12% LOTION 225 GM BTL TOP SCH (08:11)
[2016-10-26] MEDS: FLUTICASONE 0.05% CREAM 30GM (CUTIVATE) TOP PRN ×2 (08:56→20:15)
[2016-10-26] MEDS ORDERED: ENTER DRUG NAME HERE (PATIENT'S OWN MED) TOP SCH (09:00)
[2016-10-26 18:00] VITALS: BP 126/69
--- NOTE | 2016-10-26 18:00 | IPNPDOC ---
[facility] Progress Note Progress Note DATE OF SERVICE: 10/26/16 HISTORY: Mounter Smoking Pipe met with patient today to assess treatment progress on inpatient unit. Patient indicated she is feeling "good, a little nervous because I have a meeting today, but I feel good about going home." Patient reported anxiety level /10, denied depression, denies suicidal and homicidal ideation, denies audiovisual hallucinations, and denies urge to engage in self-injurious behavior. Patient indicates she feels current medication regimen is working well and she denies medication side effects. Patient denies physical pain at time of interaction today. Patient states she has been attending groups, denies recent emotional outbursts, initiates conversation with check writer regarding discharge and speaks openly about anxiety related to returning to independent living. Patient reiterates today she does not want to go to [facility], informs check writer she feels capable of functioning independently in her apartment TLS, adds she and perinatal coordinator have discussed her attending the [facility] day program and patient states she feels this would be "a good way for me to get out and be around other people." Patient denies symptoms of anger, irritability, agitation, states to check writer, "I haven't thought about smacking anybody for a while, and I won't do it, I feel like I'm able to control that now." Patient is able to verbalize concrete strategies for mitigating symptoms of aggression should they return, reiterates she has never had plan or intent to harm or kill others. Patient states she feels she has developed coping mechanisms which will help her live successfully alone and set boundaries with visitors, reiterates she struggles with feelings of loneliness and wanting friends but then having friends to stay too long in interrupt her daily routine and sleep pattern. Patient denies challenges with sleep and energy level, indicates appetite is stable. Patient presents with no signs of acute distress at time of interaction and indicates she continues to feel positive and hopeful about discharge return to [facility]. VITAL SIGNS: See below. NEW TEST RESULTS: No new results. MEDICAL HISTORY: Hypothyroidism GERD, Sleep apnea, Arthritis of both knees and left hip, glaucoma, obstructive sleep apnea eczema/psoriasis, chronic constipation. History of surgery includes: Thyroidectomy, left breast lumpectomy , tonsillectomy, colonoscopy 09/11 internal hemorrhoids. UDS on admit was negative. HCG negative [place] level 10/12/16 0.91, 10/17/16 0.87, 10/24/16 0.98 EKG on 07/18/16 sinus rhythm, first-degree AV block, 78 BPM, borderline EKG, has been evaluated by PA who indicates follow-up post discharge CURRENT MEDICATIONS: See below. Per previous provider: [place] 300 mg po q am, 900 mg po qhs for mood stabilization, Quetiapine 400 mg po qhs for mood stabilization/decrease in psychotic symptoms, zyprexa 5 mg po bid for linwood/ schizophrenia, sertraline 50 mg po q am for depression, seroquel 12.5 mg po q 6h prn for Agitation/anxiety/AH. MENTAL STATUS EXAMINATION: Patient is 56-year-old female who presents as mildly disheveled, dressed in own clothing, makes good eye contact today, ambulates safely with front wheel walker, appears stated age. Speech: Is of normal rate, rhythm, volume, does not raise voice Language: Intact. Thought processes: Clear today, goal-directed Thought content: Rational, logical, no tangentiality or circumstantial thought noted today Abstract reasoning, Adequate. Associations: Appear intact, no persecutory or paranoid thinking Description of abnormal or psychotic thoughts: Patient currently denies audiovisual hallucinations, denies delusional thinking, denies paranoia. Judgment: Adequate, has improved during inpatient treatment Insight: Fair, notable signs of improvement Oriented to: Person, place, time, situation Recent and remote memory: Appears to be intact Attention span and concentration: Appears adequate Language: Normal. Fund of knowledge: Adequate. Mood: "I'm feeling better and I feel like I'm ready to go home." Patient appears less anxious today, no signs of depression at time of interaction, no irritability or agitation, patient is not overly stimulated, and no mood lability noted during interaction Affect: Mild constriction, brightens frequently and appropriately, congruent with mood AIMS completed date of entry with no involuntary movement noted or reported DIAGNOSES: Schizoaffective disorder. ASSESSMENT: Patient is a 56-year-old female who has multiple admissions to this unit. Patient exhibited no irritability today during assessment and did not raise voice toward check writer, answered all questions, asked appropriate questions of check writer, did not exhibit signs of being frustrated with environmental noise level, engaged check writer in conversation pertaining to discharge planning details. Patient denies suicidal and homicidal ideation and is able to verbalize how to access supportive services on the unit if needed. Patient indicates current medication regimen is effective and she denies medication side effects. Patient indicates she will have her TLS discharge planning meeting today, remains in agreement with return to independent living level, informs check writer today she feels confident about discharge plan and feels prepared for discharge to occur tomorrow. Will continue to monitor patient's response to medications, monitor for medication side effects, evaluate patient's safety, and prepare patient for discharge tomorrow. Addendum: Mounter Smoking Pipe spoke with perinatal coordinator post TLS meeting. field care coordinator indicated meeting went well, patient will discharge tomorrow at 11 AM and will be transported back to [facility] independent living level by TLS sample case porter. Patient will receive follow-up psychotherapy, case management, and medication management services. Patient will have her medications given to her on a daily basis by TLS for at least 2 weeks as she transitions back into independent living. In addition, patient will participate in [facility] day program for socialization. MANAGEMENT PLAN: Continue current medication regimen Check lithium level 10/24/15 - completed Maintain safety precautions Patient to attend groups and participate in unit programming to develop coping strategies Engage patient in discharge planning process and arrange meeting with support system and TLS to ensure safe discharge planning when appropriate Patient to follow up with PCM upon discharge TIME SPENT: 35 minutes. Vital Signs Vital Signs Date Time Temp Pulse Resp B/P Pulse Ox O2 Delivery O2 Flow Rate FiO2 10/26/16 06:39 97.0 82 16 128/73 Current Medications Current Medications Acetaminophen (Tylenol Tab) 650 mg Q4HP PRN PO PAIN / FEVER Last administered on 10/25/16 20:15; Start 10/13/16 at 00:30; Stop 11/12/16 at 00:29 Al Hydrox/Mg Hydrox/Simethicone (Mylanta) 30 ml Q4HP PRN PO HEARTBURN/ INDIGESTION; Start 10/13/16 at 00:30; Stop 11/12/16 at 00:29 Artificial Tears (Akwa Tears) 1 drop TIDP PRN OU DRY EYES Last administered on 10/26/16 08:09; Start 10/13/16 at 00:30; Stop 11/12/16 at 00:29 Aspirin (Ecotrin) 81 mg DAILY PO Last administered on 10/26/16 08:10; Start at 09:00; Stop 11/12/16 at 08:59 Buspirone HCl (Buspar) 15 mg BID PO Last administered on 10/14/16 08:48; Start 10/13/16 at 21:00; Stop 10/14/16 at 13:15; Status DC Buspirone HCl (Buspar) 15 mg QAM PO Last administered on 10/13/16 08:32; Start 10/13/16 at 09:00; Stop 10/13/16 at 13:05; Status DC Buspirone HCl (Buspar) 30 mg QHS PO Last administered on 10/13/16 01:42; Start 10/12/16 at 21:00; Stop 10/13/16 at 13:05; Status DC Calcium/Vitamin D (Oscal D) 500 mg BID PO Last administered on 10/26/16 08:10; Start 10/12/16 at 21:00; Stop 11/11/16 at 20:59 Cetirizine HCl (ZyrTEC) 10 mg DAILY PO Last administered on 10/26/16 08:09; Start 10/13/16 at 09:00; Stop 11/12/16 at 08:59 Docusate Sodium (Colace) 100 mg BID PO Last administered on 10/26/16 08:09; Start 10/12/16 at 21:00; Stop 11/11/16 at 20:59 Fluticasone Propionate (Cutivate 0.05%) Psoriasis Elbows BIDP PRN TOP RASH/ ITCHING Last administered on 10/26/16 08:56; Start 10/13/16 at 00:45; Stop 11/12 at 00:44 Home Med (Med Rec Complete!) ASDIRECTED XX ; Start 10/12/16 at 19:15; Stop at 19:20; Status DC Ibuprofen (Advil) 600 mg Q6HP PRN PO PAIN Last administered on 10/13/16 21:34 ; Start 10/13/16 at 00:30; Stop 10/13/16 at 23:28; Status DC Ibuprofen (Advil) 600 mg Q6HP PRN PO MODERATE PAIN (PS 5-7) Last administered on 10/26/16 08:10; Start 10/13/16 at 23:30; Stop 11/12/16 at 23:29 Lactic Acid (Lac-Hydrin 12% Lotion) TO ARMS AND LEGS DAILY TOP Last administered on 10/26/16 08:11; Start 10/25/16 at 09:00; Stop 11/24/16 at 08:59 Latanoprost (Xalatan 0.005% Op Soln) 1 drop QHS OU Last administered on 20:14; Start 10/12/16 at 21:00; Stop 11/11/16 at 20:59 Levothyroxine Sodium (Synthroid) 0.05 mg DAILY@06 PO Last administered on 05:54; Start 10/13/16 at 06:00; Stop 11/12/16 at 05:59 [place] Carbonate ([place] Carbonate) 300 mg QAM PO Last administered on 08:09; Start 10/14/16 at 09:00; Stop 11/13/16 at 08:59 [place] Carbonate ([place] Carbonate) 600 mg BID PO Last administered on 08:31; Start 10/12/16 at 21:00; Stop 10/13/16 at 13:05; Status DC [place] Carbonate ([place] Carbonate) 900 mg QHS PO Last administered on 20:14; Start 10/14/16 at 21:00; Stop 11/13/16 at 20:59 [place] Carbonate ([place] Carbonate) 900 mg QPM PO Last administered on 20:15; Start 10/13/16 at 21:00; Stop 10/14/16 at 16:05; Status DC Lurasidone HCl (Latuda) 40 mg DAILY@18 PO ; Start 10/12/16 at 18:00; Stop at 13:05; Status DC Magnesium Hydroxide (Milk Of Magnesia) 30 ml DAILYPRN PRN PO CONSTIPATION Last administered on 10/24/16 12:15; Start 10/13/16 at 00:30; Stop 11/12/16 at 00:29 Non-Formulary Medication ( See Comment Field Below ) SEE COMMENTS SECTION 1T @10 XX ; Start 10/21/16 at 10:00; Stop 10/22/16 at 09:59; Status UNV Non-Formulary Medication ( See Comment Field Below ) SEE LABEL COMMENTS DAILY XX ; Start 10/19/16 at 09:00; Stop 10/20/16 at 10:05; Status DC Non-Formulary Medication ( See Comment Field Below ) SEE LABEL COMMENTS SECTION 1T@10 XX Last administered on 10/22/16 09:15; Start 10/22/16 at 10:00 ; Stop 10/22/16 at 23:59; Status DC Nystatin (Mycostatin Powder, Nystop) Apply to abdominal folds BID TOP Last administered on 10/26/16 08:10; Start 10/25/16 at 09:00; Stop 11/24/16 at 08:59 Olanzapine (ZyPREXA) 5 mg BID PO Last administered on 10/26/16 08:09; Start at 21:00; Stop 11/18/16 at 20:59 Olanzapine (ZyPREXA) 5 mg QAM PO Last administered on 10/19/16 08:03; Start at 09:00; Stop 10/19/16 at 16:35; Status DC Omeprazole (PriLOSEC) 40 mg DAILY PO Last administered on 10/26/16 08:10; Start 10/13/16 at 09:00; Stop 11/12/16 at 08:59 Patient Own Medication (Patient'S Own Med) Ammonium Lactate 12% Cr... DAILY TOP ; Start 10/26/16 at 09:00; Stop 10/26/16 at 09:00; Status DC Quetiapine Fumarate (SEROquel) 12.5 mg Q6HP PRN PO ANXIETY/AGITATION Last administered on 10/18/16 12:20; Start 10/14/16 at 13:15; Stop 11/13/16 at 13:14 Quetiapine Fumarate (SEROquel) 150 mg QHS PO Last administered on 10/13/16 01: 41; Start 10/12/16 at 21:00; Stop 10/13/16 at 13:05; Status DC Quetiapine Fumarate (SEROquel) 250 mg QHS PO Last administered on 10/15/16 22: 08; Start 10/15/16 at 21:00; Stop 10/16/16 at 10:56; Status DC Quetiapine Fumarate (SEROquel) 300 mg QHS PO Last administered on 10/14/16 21: 39; Start 10/13/16 at 21:00; Stop 10/15/16 at 10:30; Status DC Quetiapine Fumarate (SEROquel) 300 mg QHS PO Last administered on 10/18/16 21: 01; Start 10/16/16 at 21:00; Stop 10/19/16 at 16:35; Status DC Quetiapine Fumarate (SEROquel) 400 mg QHS PO Last administered on 10/25/16 21: 46; Start 10/19/16 at 21:00; Stop 11/18/16 at 20:59 Sertraline HCl (Zoloft) 50 mg DAILY PO Last administered on 10/26/16 08:09; Start 10/13/16 at 09:00; Stop 11/12/16 at 08:59 Tuberculin PPD (Aplisol, Ppd) 5 units 1T@10 ID Last administered on 10/20/16 13:02; Start 10/20/16 at 10:00; Stop 10/20/16 at 23:59; Status DC Ziprasidone (Geodon) 60 mg BID PO Last administered on 10/13/16 08:30; Start 10/12/16 at 21:00; Stop 10/13/16 at 13:05; Status DC Allergies Coded Allergies: Doxepin (Verified Allergy, Severe, SEIZURES, 11/26/12) Bupropion (Unverified Allergy, Unknown, "SPEEDS" UP, 10/12/16) Hydroxyzine (Verified Allergy, Unknown, 11/26/12) Chlorpromazine (Verified Adverse Reaction, Intermediate, EPS, 11/26/12) Thioridazine (Verified Adverse Reaction, Intermediate, EPS, 11/26/12) Trifluoperazine (Verified Adverse Reaction, Intermediate, EPS, 11/26/12) Bobbi Knowles Oct 26, 2016 18:00
[2016-10-26] MEDS: LATANOPROST 0.005% OPHTH SOLN 2.5 ML OU SCH (20:13)
[2016-10-26] MEDS: QUEtiapine FUMARATE 200 MG TAB PO SCH (21:17)
[2016-10-27] MEDS: ACETAMINOPHEN TAB 650MG DOSE (2X325MG) PO PRN ×2 (01:36→12:16)
[2016-10-27] MEDS: LEVOTHYROXINE 0.05 MG TAB (50 MCG) PO SCH (06:06)
[2016-10-27 06:29] VITALS: BP 160/90
[2016-10-27] MEDS: SERTRALINE HCL 50 MG TAB PO SCH (08:04)
[2016-10-27] MEDS: LITHIUM CARBONATE 300 MG CAP PO SCH (08:04)
[2016-10-27] MEDS: OMEPRAZOLE 20 MG CAP PO SCH (08:04)
[2016-10-27] MEDS: OLANZapine 5 MG TAB PO SCH (08:04)
[2016-10-27] MEDS: DOCUSATE SODIUM 100 MG CAP PO SCH (08:04)
[2016-10-27] MEDS: ASPIRIN 81 MG ENTERIC TAB PO SCH (08:04)
[2016-10-27] MEDS: CALCIUM/VITAMIN D 500 MG TAB PO SCH (08:04)
[2016-10-27] MEDS: CETIRIZINE (ZyrTEC) 10 MG TAB PO SCH (08:04)
[2016-10-27] MEDS: LACTIC ACID 12% LOTION 225 GM BTL TOP SCH (08:05)
[2016-10-27] MEDS: POLYVINYL ALCOHOL OPHTH SOLN 15 ML(LIQUITEARS) OU PRN (08:05)
[2016-10-27] MEDS: FLUTICASONE 0.05% CREAM 30GM (CUTIVATE) TOP PRN (08:44)
[2016-10-27] MEDS: NYSTATIN 100,000 UNITS/GM TOPICAL PWD 15 GM TOP SCH (08:44)
--- NOTE | 2016-10-27 08:58 | DS.PDOC ---
[facility] Discharge Summary Discharge Summary DATE OF ADMISSION: Oct 12, 2016 at 23:05 DATE OF DISCHARGE: October 27, 2016 HISTORY: Patient is a 56-year-old female who has multiple admissions [facility] for psychiatric treatment. Patient indicates she felt it would be best for her to come in to be evaluated, adds she was experiencing suicidal ideation with plan to cut wrists. Patient states last admission was in June,, for similar reasons. Prior records indicate patient experiences suicidal ideation when she gets angry, notes she was recently upset with people in her housing unit, states she feels mobile crises response aggravated the situation. Patient states she was feeling overwhelmed, angry, and adds she was also feeling fearful of another resident who was reportedly sneaking her boyfriend up to her apartment. Per admission at evaluators report, patient presented with moderate symptoms of anxiety and depression at time of admission, did not appear to be experiencing audiovisual hallucinations, denied urge to engage in self-injurious behavior, and denied suicidal and homicidal ideation. Also per admission assessors report, at time of admission patient reported challenges with sleep, reported low energy, denied challenges with concentration and focus , indicated appetite is stable. Per prior record, patient appears to benefit from inpatient treatment after experiencing overwhelming situations including altercations with her roommates or housing peers. PAST PSYCHIATRIC HISTORY: Patient has 5 prior psychiatric hospitalizations between January 2013 and present, this admission being patients sixth hospitalization. Patient also has a hospitalization for polysubstance abuse in October 2012. MEDICAL HISTORY: Hypothyroidism GERD, Sleep apnea, Arthritis of both knees and left hip, glaucoma, obstructive sleep apnea eczema/psoriasis, chronic constipation. History of surgery includes: Thyroidectomy, left breast lumpectomy , tonsillectomy, colonoscopy 09/11 internal hemorrhoids. UDS on admit was negative. HCG negative [place] level 10/12/16 0.91, 10/17/16 0.87, 10/24/16 0.98 EKG on 07/18/16 sinus rhythm, first-degree AV block, 78 BPM, borderline EKG, has been evaluated by ANJUM who indicates follow-up post discharge Vitals elevated this morning taken electronically, on manual recheck were as follows: B/P 138/78, P 77, R 18. FAMILY PSYCHIATRIC HISTORY: Patient reports her sister has depression. Patient also states she had a paternal aunt who was severely mentally ill and institutionalized for most of her life, patient does not know diagnosis. SOCIAL HISTORY: Patient is a single, never , no children. Patient reports she has worked at [employer]. Patient is currently on disability living in [facility] housing. Patient reports she has a sister and her mother is still alive and well. SUBSTANCE ABUSE HISTORY: Patient denies, however, prior records show that patient had a polysubstance abuse admission in October 2012 and her drug test at that time tested positive for alcohol and amphetamines and cannabis. LEGAL HISTORY: Patient states she has been arrested for assault in the past and was put on probation. Patient denies any group home or snf time. Patient states she was last arrested more than 10 years ago. TREATMENT PROGRESS ON UNIT: Patient is a 56-year-old female who has multiple admissions to this inpatient unit. Patient has adjusted to unit, has been attending groups, has been visible on unit at times, is able to use good judgment and remove herself from environments which she feels are overwhelming before losing composure. Patient has shown notable development of coping mechanisms and strategies for interacting with peers and staff, has had no recent episodes of emotional outbursts and has exhibited no physical aggression. Patient is able to verbalize concrete strategies for mitigating symptoms of frustration, anxiety, depression, and suicidal ideation should they return. Patient denies suicidal and homicidal ideation, denies audiovisual hallucinations, denies urge to engage in self-injurious behavior. Patient indicates sleep and appetite are stable, denies physical pain, and presents with no signs of acute distress at time of interaction. Patient is able to effectively participate in the safety planning process and verbalizes awareness of how to access supportive services if needed. Patient has been medication compliant, indicates current medication regimen is working well, and denies medication side effects. Patient has been educated on medication side effects and symptoms of toxicity that she needs to monitor for, is aware she will need to undergo routine lab work as part of the psychotropic medication monitoring process. Patient has participated in TLS discharge planning meeting and patient and TLS have indicated they are comfortable with patient returning to her independent living unit. Patient is requesting discharge today and will be transported by TLS case fitter back to her apartment, she will follow up with case management and outpatient medication management and psychotherapy through TLS. Patient has also been provided with referral information on the [facility] day program in effort to provide her with opportunities for socialization and improvement of social skills. Patient verbalizes understanding of and agreement with discharge plan. MENTAL STATUS EXAMINATION ON DISCHARGE: Patient is 56-year-old female who presents with adequate personal hygiene, dressed in own clothing, makes good eye contact today, ambulates safely with front wheel walker, appears stated age. Speech: Is of normal rate, rhythm, volume, does not raise voice Language: Intact. Thought processes: Clear today, goal-directed Thought content: Rational, logical, no tangentiality or circumstantial thought noted today Abstract reasoning, Adequate. Associations: Appear intact, no persecutory or paranoid thinking Description of abnormal or psychotic thoughts: denies audiovisual hallucinations , denies delusional thinking, denies paranoia. Judgment: Adequate, has improved during inpatient treatment Insight: Fair, notable signs of improvement Oriented to: Person, place, time, situation Recent and remote memory: Appears to be intact Attention span and concentration: Appears adequate Language: Normal. Fund of knowledge: Adequate. Mood: "I'm feeling better and I feel like I'm ready to go home." Patient appears less anxious today, no signs of depression at time of interaction, no irritability or agitation, patient is not overly stimulated, and no mood lability noted during interaction Affect: Full range, brightens frequently and appropriately, congruent with mood AIMS completed date of entry with no involuntary movement noted or reported CONDITION ON DISCHARGE: Stable, no suicidal or homicidal ideation DIAGNOSES ON DISCHARGE: Schizoaffective disorder, bipolar type. MEDICATIONS ON DISCHARGE: See below FOLLOW UP PLAN: Patient to continue current medication regimen consisting of olanzapine 5 mg po BID, Seroquel 400 mg po hs, lithium 300 mg po q am and 900 mg po hs, Zoloft 50 mg po q am, and Seroquel 12.5 mg q 6 hours PRN for anxiety/ agitation. Recommendation is for taper to antipsychotic monotherapy once patient is stabilized in the outpatient environment. Repeat lithium level 1-2 weeks post discharge Patient to be transported by [facility] case fitter back to [facility] independent living apartment. Patient to receive case management, psychotherapy and medication management services through [facility]. Patient to participate in [facility] day program for socialization Patient to follow up with PCM within 5-7 days of discharge TIME SPENT COORDINATING CARE: 50 minutes Vital Signs Vital Sign - Last 24 Hours 10/26/16 10/27/16 18:00 06:29 Temp 96.8 95.1 Pulse 78 98 Resp 16 18 B/P 126/69 160/90 Medications Scheduled (Calcium/Vitamin D3 600-400 mg-Unit) 1 Tab Tab 1 TAB PO BID SUPPLEMENT (Reported ) (Ammonium Lactate) 12 % Cre 12 % EXT DAILY (Reported) APPLIED TO LEGS AND ARMS Aspirin (Aspirin 81) 81 Mg Tab 81 MG PO DAILY cardiac prophlaxis (Reported) Cetirizine HCl (Zyrtec Allergy) 10 Mg Cap 10 MG PO DAILY ALLERGIES (Reported) Latanoprost (Latanoprost) 50 Drop/2.5 Ml Soln 1 DROP OU QHS GLAUCOMA (Reported) Levothyroxine Sodium (Synthroid) 50 Mcg Tab #30 50 MCG PO QAM THYROID G[place]des Carbonate (Geddes Carbonate) 300 Mg Cap #7 300 MG PO QAM mood stabilization G[place]des Carbonate (Geddes Carbonate) 300 Mg Cap #21 900 MG PO QHS mood stabilization Multivitamins *[facility] STOCKED* (Thera M Plus *[facility] STOCKED*) 1 Tab Tab 1 TAB PO DAILY (Reported) SUPPLEMENT Nystatin (Nystop Powder) 1 Dose/15 Gm Powd #1 1 DOSE TOP BID RASH Olanzapine (Olanzapine) 5 Mg Tab #14 5 MG PO BID MOOD Omeprazole (Omeprazole) 40 Mg Cap #30 40 MG PO DAILY GERD Quetiapine Fumerate (Quetiapine Fumarate) 200 Mg Tab #14 400 MG PO QHS mood/ sleep Sertraline Hcl (Zoloft) 50 Mg Tab #7 50 MG PO QAM DEPRESSION Scheduled PRN Artificial Tears (Artificial Tears) 1.4 % Paulina 1 DROP OU TID PRN PRN DRY EYES ( Reported) Docusate Sodium (Docusate Sodium) 100 Mg Cap 100 MG PO BID PRN PRN CONSTIPATION (Reported) Fluticasone Propionate (Fluticasone Propionate 0.005%) 0.005 % Oin 0.005 % EXT BID PRN PRN PSORIASIS (Reported) APPLIED TO ELBOWS Quetiapine Fumerate (Quetiapine Fumarate) 25 Mg Tab #7 12.5 MG PO Q6HP PRN PRN ANXIETY/AGITATION Allergies Coded Allergies: Doxepin (Verified Allergy, Severe, SEIZURES, 11/26/12) Bupropion (Unverified Allergy, Unknown, "SPEEDS" UP, 10/12/16) Hydroxyzine (Verified Allergy, Unknown, 11/26/12) Chlorpromazine (Verified Adverse Reaction, Intermediate, EPS, 11/26/12) Thioridazine (Verified Adverse Reaction, Intermediate, EPS, 11/26/12) Trifluoperazine (Verified Adverse Reaction, Intermediate, EPS, 11/26/12) Bobbi Knowles Oct 27, 2016 08:58
[2016-10-27 09:27] VITALS: BP 138/78
[2016-10-27] MEDS: IBUPROFEN 600 MG TAB PO PRN (11:29)
[2016-10-27] MEDS ORDERED: QUET1TAB7 PO (12:01)
[2016-10-27] MEDS ORDERED: OLAN5TAB PO (12:01)
[2016-10-27] MEDS ORDERED: QUET1TAB9 PO (12:01)
[2016-10-27] MEDS ORDERED: ZOLO50TA PO (12:01)
[2016-10-27] MEDS ORDERED: LITH300C PO ×2 (12:01)
[2016-10-27] MEDS ORDERED: NYST10PW TOP (13:21)
[2016-10-27] MEDS ORDERED: OMEP40CA2 PO (15:46)
[2016-10-27] MEDS ORDERED: SYNT50TA PO (15:46)
== END 2016-10-27 15:00 | disposition home or self-care (01) | DRG 885 ==
LOC: M ED 13:54 → M PSY 23:05
PROVIDERS: ADMIT Psychiatry & Neurology Psychiatry; ATTEND Psychiatry & Neurology Psychiatry
DX: F25.0 Schizoaffective disorder, bipolar type (principal); R45.851 Suicidal ideations; F19.21 Other psychoactive substance dependence, in remission; G47.33 Obstructive sleep apnea (adult) (pediatric); M16.12 Unilateral primary osteoarthritis, left hip; K21.9 Gastro-esophageal reflux disease without esophagitis; M17.0 Bilateral primary osteoarthritis of knee; H40.9 Unspecified glaucoma; J30.9 Allergic rhinitis, unspecified; L40.9 Psoriasis, unspecified; E03.9 Hypothyroidism, unspecified; Z81.8 Family history of other mental and behavioral disorders; Z79.82 Long term (current) use of aspirin; Z79.899 Other long term (current) drug therapy; Z88.8 Allergy status to other drugs, medicaments and biological substances; Z86.718 Personal history of other venous thrombosis and embolism; Z99.89 Dependence on other enabling machines and devices

== ENCOUNTER 2016-10-29 09:55 | Emergency (ER) | payer MEDICARE, MEDICAID ==
[~2016-10-29] VITALS: Ht 160 cm; Wt 107.5 kg
[~2016-10-29 09:55] MED LIST changes: +ACET-654 PO; +AMMO12CR4 EXT; +CICL0.7739 EXT; +FLUT0.003 EXT; +GEOD60CA PO; +IBUP60TA PO; +LITH300C PO; +NYST10PW TOP; +OLAN5TAB PO; +OMEP40CA2 PO; +QUET1TAB7 PO; +QUET1TAB9 PO
[2016-10-29] MEDS ORDERED: NS 1,000 ML IV ONE (10:15)
[2016-10-29] MEDS ORDERED: ACETAMINOPHEN 325 MG TAB PO ONE (10:15)
[2016-10-29] MEDS ORDERED: ONDANSETRON 4MG/2ML VIAL (J2405) IV ONE (10:30)
[2016-10-29 11:14] LABS: BASO % 0.3 % (0.0-1.0); EOS # 0.1 K/mm3 (0.0-0.50); EOS % 0.5 % (0.0-3.0); LARGE UNSTAINED CELL # 0.1 K/mm3 (0.0-0.4); LARGE UNSTAINED CELL % 0.8 % (0.0-4.0); LYMPH # 0.4 K/mm3 (1.5-4.5); LYMPH % 3.2 % (24.0-44.0); MEAN CORPUSCULAR HEMOGLOBIN 28.2 pg (27.0-33.0); MEAN CORPUSCULAR HGB CONC 31.9 g/dl (32.0-36.5); MEAN CORPUSCULAR VOLUME 88.5 fl (80.0-96.0); MONO # 0.4 K/mm3 (0.0-0.8); MONO % 3.5 % (0.0-5.0); NEUTROPHILS # 11.6 K/mm3 (1.8-7.7); NEUTROPHILS % 91.8 % (36.0-66.0); PLATELET COUNT, AUTOMATED 194 k/mm3 (150-450); WHITE BLOOD COUNT 12.6 K/mm3 (4.0-10.0)
[2016-10-29 11:33] LABS: ALBUMIN 3.8 GM/DL (3.2-5.2); ALBUMIN/GLOBULIN RATIO 1.12 (1.00-1.93); ALKALINE PHOSPHATASE 133 U/L (45-117); ALT/SGPT 46 U/L (12-78); AMYLASE 47 U/L (25-115); ANION GAP 7 MEQ/L (8-16); AST/SGOT 33 U/L (15-37); BILIRUBIN,DIRECT < 0.1 MG/DL (0.0-0.2); BILIRUBIN,TOTAL 0.3 MG/DL (0.2-1.0); BLOOD UREA NITROGEN 17 MG/DL (7-18); CALCIUM LEVEL 9.4 MG/DL (8.5-10.1); CARBON DIOXIDE LEVEL 28 MEQ/L (21-32); CHLORIDE LEVEL 105 MEQ/L (98-107); CREATININE FOR GFR 0.73 MG/DL (0.55-1.02); GLOMERULAR FILTRATION RATE > 60.0 (>51); GLUCOSE, FASTING 158 MG/DL (70-105); POTASSIUM SERUM 4.1 MEQ/L (3.5-5.1); SODIUM LEVEL 140 MEQ/L (136-145); TOTAL PROTEIN 7.2 GM/DL (6.4-8.2)
[2016-10-29 11:37] LABS: LITHIUM LEVEL 0.64 MEQ/L (0.60-1.20)
[2016-10-29 12:11] VITALS: BP 135/69
== END 2016-10-29 12:26 | disposition home or self-care (01) ==
LOC: EDBD 09:55 → M ED 10:17
DX: R11.10 Vomiting, unspecified (principal); R50.9 Fever, unspecified; M79.1 Myalgia; K21.9 Gastro-esophageal reflux disease without esophagitis; F20.9 Schizophrenia, unspecified; Z88.8 Allergy status to other drugs, medicaments and biological substances; Z79.82 Long term (current) use of aspirin; Z79.899 Other long term (current) drug therapy; R56.9 Unspecified convulsions; K59.00 Constipation, unspecified; E07.9 Disorder of thyroid, unspecified; M19.90 Unspecified osteoarthritis, unspecified site; Z86.718 Personal history of other venous thrombosis and embolism; F41.9 Anxiety disorder, unspecified; F32.9 Major depressive disorder, single episode, unspecified
CPT/HCPCS: 36415; 80048; 80076; 80178; 82150; 83690; 85025; 87804; 96374; 99283; J2405

== ENCOUNTER → 2017-01-30 | Outpatient (REF) | payer MEDICARE, MEDICAID | LOC: M LAB REF 17:13 | PROVIDERS: ATTEND Physician Assistant Medical | DX: N39.0 Urinary tract infection, site not specified (principal) ==

== ENCOUNTER 2017-02-22 21:11 | Emergency (ER) | payer MEDICARE, MEDICAID ==
[~2017-02-22] VITALS: Ht 160 cm; Wt 102.8 kg
[~2017-02-22 21:11] MED LIST changes: -ACET-654 PO; +ACET1TAB17 PO; +AZIT-12 PO; -AZIT250T3 PO; -DOCU100C PO; +DOCU100C16 PO; +IBUP-1022 PO; +IBUP1TAB6 PO; -IBUP600T26 PO; -IBUP60TA PO; -NYST100024 TOP; +NYST1POW9 TOP; -SENO8.6T2 PO; +SENO8.6T5 PO; +VOLT1GEL15 TD; -VOLT1GEL24 TD
[2017-02-22] MEDS ORDERED: KETOROLAC 60 MG/2 ML VIAL (J1885) IM ONE (23:45)
[2017-02-23 00:22] VITALS: BP 134/65
[2017-06-21] MEDS ORDERED: COLA100C5 PO (20:20)
[2017-06-21] MEDS ORDERED: CALCTAB74 PO (20:20)
[2017-06-21] MEDS ORDERED: LITH300T2 PO (20:20)
[2017-06-21] MEDS ORDERED: SERT-138 PO (20:20)
[2017-06-21] MEDS ORDERED: SERO400T PO (20:20)
[2017-06-21] MEDS ORDERED: CETI10TA PO (20:20)
[2017-06-21] MEDS ORDERED: LATA5OPD OU (20:20)
[2017-06-21] MEDS ORDERED: BRIM2OPD OU (20:20)
[2017-06-21] MEDS ORDERED: OMEP40CA2 PO (20:20)
[2017-06-21] MEDS ORDERED: OLAN10TA2 PO (20:20)
[2017-06-21] MEDS ORDERED: SERO1TAB3 PO (20:20)
[2017-06-21] MEDS ORDERED: ASPI1TAB15 PO (20:20)
[2017-06-21] MEDS ORDERED: LEVO50TA45 PO (20:20)
[2017-06-21] MEDS ORDERED: MELO15TA4 PO (20:21)
[2017-06-21] MEDS ORDERED: TAB-TAB PO (20:21)
[2017-06-29] MEDS ORDERED: QUET1TAB9 PO (10:52)
[2017-06-29] MEDS ORDERED: ZANA4TAB PO (10:52)
[2017-06-29] MEDS ORDERED: AMBI5TAB PO (10:52)
== END 2017-02-23 00:29 | disposition home or self-care (01) ==
LOC: M ED 21:11
DX: G89.29 Other chronic pain (principal); M25.562 Pain in left knee; E07.9 Disorder of thyroid, unspecified; Z86.718 Personal history of other venous thrombosis and embolism; Z79.899 Other long term (current) drug therapy; Z79.82 Long term (current) use of aspirin; Z88.8 Allergy status to other drugs, medicaments and biological substances; F17.210 Nicotine dependence, cigarettes, uncomplicated
CPT/HCPCS: 96372; 99282; J1885

== ENCOUNTER → 2017-02-26 | Outpatient (REF) | payer MEDICARE, MEDICAID ==
[~2017-02-26] MED LIST changes: +AMBI5TAB PO; +ASPI1TAB15 PO; +BRIM2OPD OU; +CALCTAB74 PO; +CETI10TA PO; +COLA100C5 PO; +LEVO50TA45 PO; +MELO15TA4 PO; +OLAN10TA2 PO; +SERO1TAB3 PO; +SERO400T PO; +SERT-138 PO; +TAB-TAB PO; +ZANA4TAB PO
== END ==
LOC: M LAB REF 16:36
PROVIDERS: ATTEND Physician Assistant Medical
DX: R30.0 Dysuria (principal)

== ENCOUNTER → 2017-02-27 | Outpatient (CLI) | payer MEDICARE, MEDICAID ==
--- NOTE | 2017-03-01 10:38 | REPMRS ---
Patient History The patient states she had a clinical breast exam in 02/2017. Patient is postmenopausal and is nulliparous. Family history of breast cancer in mother at age 50 or over and breast cancer in maternal aunt at age 50 or over. Benign excisional biopsy of the left breast, 1997. Digital Woman Screen Mammo: February 27, 2017 - Exam #: [id number] Bilateral CC and MLO view(s) were taken. Technologist: Regi Nesbitt, Technologist Prior study comparison: January 08, 2016, digital woman screen mammo performed at [facility]. July 11, 2014, digital woman screen mammo performed at [facility]. FINDINGS: There are scattered fibroglandular densities. There has been no change in the appearance of the mammogram from the prior studies. There is a mild amount of scattered fibroglandular density which is fairly symmetric. There is no interval development of dominant mass, architectural distortion, or clustered microcalcification suggestive of malignancy. ASSESSMENT: BI-RADS/ACR category 1 mammogram. Negative. Recommendation Routine screening mammogram in 1 year (for women over age 40). This mammogram was interpreted with the aid of an FDA-approved computer-aided dectection system. Electronically Signed By: Troy Roach MD 03/01/17 1038
== END ==
LOC: M WHC 12:48
PROVIDERS: ATTEND Nurse Practitioner Family
DX: Z12.31 Encounter for screening mammogram for malignant neoplasm of breast (principal); Z78.0 Asymptomatic menopausal state; Z12.12 Encounter for screening for malignant neoplasm of rectum; Z12.4 Encounter for screening for malignant neoplasm of cervix; Z92.89 Personal history of other medical treatment; Z80.3 Family history of malignant neoplasm of breast
CPT/HCPCS: 82270; G0101; G0123; G0202

== ENCOUNTER → 2017-02-27 | Outpatient (REF) | payer MEDICARE, MEDICAID | LOC: M SFHCWAGY 14:39 | PROVIDERS: ATTEND Nurse Practitioner Family | DX: Z12.12 Encounter for screening for malignant neoplasm of rectum (principal); Z12.4 Encounter for screening for malignant neoplasm of cervix ==

== ENCOUNTER → 2017-03-31 | Outpatient (REF) | payer MEDICARE, MEDICAID ==
[2017-03-31 10:43] LABS: BASO % 0.6 % (0.0-1.0); EOS # 0.2 K/mm3 (0.0-0.50); EOS % 2.4 % (0.0-3.0); LARGE UNSTAINED CELL # 0.1 K/mm3 (0.0-0.4); LARGE UNSTAINED CELL % 1.4 % (0.0-4.0); LYMPH # 1.1 K/mm3 (1.5-4.5); LYMPH % 15.1 % (24.0-44.0); MEAN CORPUSCULAR HEMOGLOBIN 28.5 pg (27.0-33.0); MEAN CORPUSCULAR HGB CONC 32.5 g/dl (32.0-36.5); MEAN CORPUSCULAR VOLUME 87.8 fl (80.0-96.0); MONO # 0.3 K/mm3 (0.0-0.8); MONO % 4.7 % (0.0-5.0); NEUTROPHILS # 5.3 K/mm3 (1.8-7.7); NEUTROPHILS % 75.9 % (36.0-66.0); PLATELET COUNT, AUTOMATED 212 k/mm3 (150-450)
[2017-03-31 11:06] LABS: ALBUMIN 3.9 GM/DL (3.2-5.2); ALBUMIN/GLOBULIN RATIO 1.11 (1.00-1.93); ALKALINE PHOSPHATASE 141 U/L (45-117); ALT/SGPT 24 U/L (12-78); ANION GAP 9 MEQ/L (8-16); AST/SGOT 14 U/L (15-37); BILIRUBIN,TOTAL 0.4 MG/DL (0.2-1.0); BLOOD UREA NITROGEN 16 MG/DL (7-18); CALCIUM LEVEL 9.3 MG/DL (8.5-10.1); CARBON DIOXIDE LEVEL 27 MEQ/L (21-32); CHLORIDE LEVEL 106 MEQ/L (98-107); CHOLESTEROL LEVEL 206 MG/DL (<200); CREATININE FOR GFR 0.63 MG/DL (0.55-1.02); GLOMERULAR FILTRATION RATE > 60.0 (>51); GLUCOSE, FASTING 91 MG/DL (70-105); POTASSIUM SERUM 4.1 MEQ/L (3.5-5.1); SODIUM LEVEL 142 MEQ/L (136-145); TOTAL PROTEIN 7.4 GM/DL (6.4-8.2); TRIGLYCERIDES LEVEL 184 MG/DL (<150)
== END ==
LOC: SKLABADC 08:55
PROVIDERS: ATTEND Nurse Practitioner Family
DX: K21.9 Gastro-esophageal reflux disease without esophagitis (principal); E55.9 Vitamin D deficiency, unspecified; E03.9 Hypothyroidism, unspecified; E78.5 Hyperlipidemia, unspecified

== ENCOUNTER → 2017-03-31 | Outpatient (REF) | payer MEDICARE, OTHER, MEDICAID | LOC: SKLABADC 09:02 | PROVIDERS: ATTEND Psychiatry & Neurology Psychiatry | DX: Z51.81 Encounter for therapeutic drug level monitoring (principal); Z79.899 Other long term (current) drug therapy; F25.0 Schizoaffective disorder, bipolar type; K21.9 Gastro-esophageal reflux disease without esophagitis; E55.9 Vitamin D deficiency, unspecified; E03.9 Hypothyroidism, unspecified; E78.5 Hyperlipidemia, unspecified ==

== ENCOUNTER → 2017-04-10 | Outpatient (REF) | payer MEDICARE, MEDICAID ==
[2017-04-10 10:39] LABS: MEAN CORPUSCULAR HEMOGLOBIN 28.7 pg (27.0-33.0); MEAN CORPUSCULAR HGB CONC 32.6 g/dl (32.0-36.5); MEAN CORPUSCULAR VOLUME 88.3 fl (80.0-96.0); RED CELL DISTRIBUTION WIDTH 15.5 % (11.5-14.5); WHITE BLOOD COUNT 8.3 K/mm3 (4.0-10.0)
[2017-04-10 10:46] LABS: URIC ACID 3.7 MG/DL (2.6-6.0)
[2017-04-12 00:06] LABS: Lyme Disease IgG/IgM Antibodie <0.91 ISR (0.00-0.90); Lyme Disease IgM Ab Quantitati <0.80 index (0.00-0.79); SJOGREN'S ANTI SS-A <0.2 AI (0.0-0.9); SJOGREN'S ANTI SS-B <0.2 AI (0.0-0.9)
== END ==
LOC: SKLABADC 08:44
PROVIDERS: ATTEND Physician Assistant Surgical
DX: M16.12 Unilateral primary osteoarthritis, left hip (principal)

== ENCOUNTER → 2017-04-19 | Outpatient (REF) | payer MEDICARE, MEDICAID | LOC: SKLABADC 09:08 | PROVIDERS: ATTEND Family Medicine | DX: R30.0 Dysuria (principal) ==

== ENCOUNTER → 2017-08-24 | Outpatient (CLI) | payer MEDICARE, MEDICAID ==
[2017-08-24 13:27] LABS: MEAN CORPUSCULAR HEMOGLOBIN 27.1 pg (27.0-33.0); MEAN CORPUSCULAR VOLUME 87.6 fl (80.0-96.0); PLATELET COUNT, AUTOMATED 257 10^3/uL (150-450); RED CELL DISTRIBUTION WIDTH 15.1 % (11.5-14.5); WHITE BLOOD COUNT 9.1 10^3/uL (4.0-10.0)
[2017-08-24 13:36] LABS: INR 0.89
[2017-08-24 14:08] LABS: ALBUMIN/GLOBULIN RATIO 1.03 (1.00-1.93); ALKALINE PHOSPHATASE 150 U/L (45-117); ALT/SGPT 25 U/L (12-78); ANION GAP 5 MEQ/L (8-16); AST/SGOT 17 U/L (7-37); BILIRUBIN,TOTAL 0.3 MG/DL (0.2-1.0); BLOOD UREA NITROGEN 19 MG/DL (7-18); CALCIUM LEVEL 9.6 MG/DL (8.5-10.1); CARBON DIOXIDE LEVEL 30 MEQ/L (21-32); CHLORIDE LEVEL 106 MEQ/L (98-107); CREATININE FOR GFR 0.57 MG/DL (0.55-1.02); GLOMERULAR FILTRATION RATE > 60.0 (>51); GLUCOSE, FASTING 80 MG/DL (70-105); POTASSIUM SERUM 4.4 MEQ/L (3.5-5.1); SODIUM LEVEL 141 MEQ/L (136-145); TOTAL PROTEIN 7.9 GM/DL (6.4-8.2)
[2017-08-24 14:16] LABS: ERYTHROCYTE SEDIMENTATION RATE 13 mm/hr (0-30)
== END ==
LOC: M ADMPAT 10:26
DX: M16.12 Unilateral primary osteoarthritis, left hip (principal); Z79.01 Long term (current) use of anticoagulants
CPT/HCPCS: 71020

== ENCOUNTER 2017-09-07 09:44 | Inpatient (IN) | payer MEDICARE, MEDICAID ==
[2017-09-07] MEDS ORDERED: LR 1,000 ML IV (10:00)
[2017-09-07] MEDS ORDERED: PROPOFOL 200 MG/20 ML VIAL As Ordered (10:47)
[2017-09-07] MEDS ORDERED: MIDAZOLAM INJ 2 MG/2 ML VIAL (J2250) As Ordered (10:47)
[2017-09-07] MEDS ORDERED: fentaNYL 100 MCG/2 ML INJECTION (J3010) As Ordered (10:47)
[2017-09-07] MEDS ORDERED: ONDANSETRON 4MG/2ML VIAL (J2405) As Ordered (10:47)
[2017-09-07] MEDS ORDERED: dexameTHASONE 4 MG/ML 1ML VIAL (J1100) As Ordered (10:47)
[2017-09-07] MEDS ORDERED: LIDOCAINE 2% INJ 100 MG/5 ML SDV (FOR ANES.) As Ordered (10:47)
[2017-09-07] MEDS ORDERED: PHENYLephrine HCL 500 MCG/5 ML (100MCG/ML) SYRINGE (J2370) As Ordered (10:47)
[2017-09-07] MEDS ORDERED: PHENYLEPHRINE INJ 10MG/ML VIAL (J2370) As Ordered (11:04)
[2017-09-07] MEDS: ceFAZolin 1GM INJ (J0690 PER 500MG) As Ordered (13:14)
[2017-09-07] MEDS: TRANEXAMIC ACID 100 MG/ML 10ML VIAL As Ordered (13:39)
[2017-09-07] MEDS: EPINEPHrine INJ 1 MG/ML 1ML AMP As Ordered (13:39)
[2017-09-07] MEDS ORDERED: MORPHINE 1MG/ML IN 0.9% NACL 100ML IV BAG As Ordered (14:15)
[2017-09-07] MEDS: MORPHINE 1MG/ML IN 0.9% NACL 100ML IV BAG IV (14:25)
[2017-09-07] MEDS ORDERED: KETOROLAC 30 MG/ML VIAL (J1885) IV (14:30)
[2017-09-07] MEDS ORDERED: fentaNYL 100 MCG/2 ML INJECTION (J3010) IV (14:30)
[2017-09-07] MEDS ORDERED: NALBUPHINE HCL 10 MG/ML AMP (J2300) IV (14:30)
[2017-09-07] MEDS ORDERED: ONDANSETRON 4MG/2ML VIAL (J2405) IV ×3 (14:30)
[2017-09-07] MEDS ORDERED: MEPERIDINE INJ 25 MG/ML VIAL (J2175) IV (14:30)
[2017-09-07] MEDS: LR 1,000 ML IV ×2 (14:30→15:20)
[2017-09-07] MEDS ORDERED: EPIDURAL/PCA KEYS XX (14:30)
[2017-09-07] MEDS ORDERED: diphenhydrAMINE INJ 50MG/ML VIAL (J1200) IV (14:30)
[2017-09-07] MEDS ORDERED: PERCOCET 5MG/325MG TAB PO (14:30)
[2017-09-07] MEDS ORDERED: NALOXONE INJ 0.4 MG/1 ML VIAL (J2310) IV (14:30)
[2017-09-07] MEDS ORDERED: FLEET ENEMA PR (14:30)
[2017-09-07] MEDS: WARFARIN SOD 5 MG TAB PO (16:43)
[2017-09-07] MEDS ORDERED: tiZANidine 4 MG TAB PO (20:15)
[2017-09-07 20:16] LABS: HEMATOCRIT 33.8 % (36.0-47.0); HEMOGLOBIN 10.6 g/dl (12.0-16.0); MEAN CORPUSCULAR HEMOGLOBIN 27.2 pg (27.0-33.0); MEAN CORPUSCULAR HGB CONC 31.4 g/dl (32.0-36.5); MEAN CORPUSCULAR VOLUME 86.9 fl (80.0-96.0); PLATELET COUNT, AUTOMATED 227 10^3/uL (150-450); RED BLOOD COUNT 3.89 10^6/uL (4.00-5.40); RED CELL DISTRIBUTION WIDTH 14.9 % (11.5-14.5); WHITE BLOOD COUNT 13.3 10^3/uL (4.0-10.0)
[2017-09-07 20:47] LABS: ANION GAP 7 MEQ/L (8-16); BLOOD UREA NITROGEN 19 MG/DL (7-18); CALCIUM LEVEL 8.4 MG/DL (8.5-10.1); CARBON DIOXIDE LEVEL 25 MEQ/L (21-32); CHLORIDE LEVEL 111 MEQ/L (98-107); GLOMERULAR FILTRATION RATE > 60.0 (>51); GLUCOSE, FASTING 130 MG/DL (70-105); POTASSIUM SERUM 4.2 MEQ/L (3.5-5.1); SODIUM LEVEL 143 MEQ/L (136-145)
[2017-09-07] MEDS: zolPIDEM TARTRATE 5 MG TAB PO (22:31)
[2017-09-07] MEDS: LATANOPROST 0.005% OPHTH SOLN 2.5 ML OU (22:31)
[2017-09-07] MEDS: QUEtiapine FUMARATE 200 MG TAB PO (22:32)
[2017-09-07] MEDS: LITHIUM CARBONATE 300 MG CAP PO (22:32)
[2017-09-08] MEDS: LEVOTHYROXINE 50MCG TABLET (0.05MG) PO (05:21)
[2017-09-08] MEDS ORDERED: ONDANSETRON 4 MG TAB (S0181) PO (06:30)
[2017-09-08] MEDS ORDERED: PERCOCET 5MG/325MG TAB PO (06:30)
[2017-09-08 06:58] LABS: HEMATOCRIT 31.7 % (36.0-47.0); HEMOGLOBIN 9.8 g/dl (12.0-16.0); MEAN CORPUSCULAR HGB CONC 30.9 g/dl (32.0-36.5); MEAN CORPUSCULAR VOLUME 87.3 fl (80.0-96.0); PLATELET COUNT, AUTOMATED 238 10^3/uL (150-450); RED BLOOD COUNT 3.63 10^6/uL (4.00-5.40); RED CELL DISTRIBUTION WIDTH 15.1 % (11.5-14.5); WHITE BLOOD COUNT 12.2 10^3/uL (4.0-10.0)
[2017-09-08] MEDS: PERCOCET 5MG/325MG TAB PO (07:01)
[2017-09-08 07:04] LABS: PROTHROMBIN TIME 17.5 SECONDS (12.4-14.5)
[2017-09-08] MEDS ORDERED: TIMOLOL MALEATE 0.5% OPHTH SOLN 5 ML OD (09:00)
[2017-09-08] MEDS: SERTRALINE HCL 50 MG TAB PO (09:21)
[2017-09-08] MEDS: DOCUSATE SODIUM 100 MG CAP PO (09:21)
[2017-09-08] MEDS: OMEPRAZOLE 20 MG CAP PO (09:21)
[2017-09-08] MEDS: MOM 30ML SUSPENSION UDC PO (09:21)
[2017-09-08] MEDS: MIRALAX *UNIT DOSE* 17GM PACKET PO (09:21)
[2017-09-08] MEDS: TIMOLOL MALEATE 0.25% OPHTH SOLN 5 ML OD ×2 (09:21→21:15)
[2017-09-08] MEDS: OLANZapine 10 MG TAB PO (09:22)
[2017-09-08] MEDS: QUEtiapine FUMARATE 25 MG TAB PO ×2 (09:22→15:30)
[2017-09-08] MEDS: traMADol 50 MG TAB PO ×2 (12:36→17:49)
[2017-09-08] MEDS: WARFARIN SOD 5 MG TAB PO (17:49)
[2017-09-08] MEDS: LITHIUM CARBONATE 300 MG CAP PO (21:14)
[2017-09-08] MEDS: LATANOPROST 0.005% OPHTH SOLN 2.5 ML OU (21:15)
[2017-09-08] MEDS: QUEtiapine FUMARATE 200 MG TAB PO (21:31)
[2017-09-09] MEDS: ACETAMINOPHEN TAB 650MG DOSE (2X325MG) PO (00:06)
[2017-09-09] MEDS: traMADol 50 MG TAB PO ×4 (00:07→18:36)
[2017-09-09] MEDS: LEVOTHYROXINE 50MCG TABLET (0.05MG) PO (05:43)
[2017-09-09 06:00] LABS: HEMATOCRIT 27.8 % (36.0-47.0); HEMOGLOBIN 8.7 g/dl (12.0-16.0); MEAN CORPUSCULAR HEMOGLOBIN 27.7 pg (27.0-33.0); MEAN CORPUSCULAR HGB CONC 31.3 g/dl (32.0-36.5); MEAN CORPUSCULAR VOLUME 88.5 fl (80.0-96.0); PLATELET COUNT, AUTOMATED 172 10^3/uL (150-450); RED BLOOD COUNT 3.14 10^6/uL (4.00-5.40); WHITE BLOOD COUNT 11.6 10^3/uL (4.0-10.0)
[2017-09-09] MEDS: MIRALAX *UNIT DOSE* 17GM PACKET PO (08:48)
[2017-09-09] MEDS: SERTRALINE HCL 50 MG TAB PO (08:48)
[2017-09-09] MEDS: MOM 30ML SUSPENSION UDC PO (08:48)
[2017-09-09] MEDS: QUEtiapine FUMARATE 25 MG TAB PO ×2 (08:49→14:30)
[2017-09-09] MEDS: OMEPRAZOLE 20 MG CAP PO (08:49)
[2017-09-09] MEDS: TIMOLOL MALEATE 0.25% OPHTH SOLN 5 ML OD ×2 (08:50→21:09)
[2017-09-09] MEDS: DOCUSATE SODIUM 100 MG CAP PO (08:50)
[2017-09-09] MEDS: OLANZapine 10 MG TAB PO (08:53)
[2017-09-09] MEDS: WARFARIN SOD 5 MG TAB PO (17:29)
[2017-09-09] MEDS: QUEtiapine FUMARATE 200 MG TAB PO (21:07)
[2017-09-09] MEDS: LATANOPROST 0.005% OPHTH SOLN 2.5 ML OU (21:09)
[2017-09-09] MEDS: LITHIUM CARBONATE 300 MG CAP PO (21:17)
[2017-09-10] MEDS: traMADol 50 MG TAB PO ×3 (01:44→19:05)
[2017-09-10] MEDS: LEVOTHYROXINE 50MCG TABLET (0.05MG) PO (04:05)
[2017-09-10 07:15] LABS: HEMATOCRIT 28.7 % (36.0-47.0); HEMOGLOBIN 8.9 g/dl (12.0-16.0); MEAN CORPUSCULAR HEMOGLOBIN 27.1 pg (27.0-33.0); MEAN CORPUSCULAR VOLUME 87.5 fl (80.0-96.0); PLATELET COUNT, AUTOMATED 209 10^3/uL (150-450); RED BLOOD COUNT 3.28 10^6/uL (4.00-5.40); RED CELL DISTRIBUTION WIDTH 14.9 % (11.5-14.5); WHITE BLOOD COUNT 13.4 10^3/uL (4.0-10.0)
[2017-09-10 07:25] LABS: INR 2.64; PROTHROMBIN TIME 29.3 SECONDS (12.4-14.5)
[2017-09-10 08:19] LABS: ANION GAP 6 MEQ/L (8-16); BLOOD UREA NITROGEN 12 MG/DL (7-18); CALCIUM LEVEL 8.1 MG/DL (8.5-10.1); CARBON DIOXIDE LEVEL 31 MEQ/L (21-32); CHLORIDE LEVEL 100 MEQ/L (98-107); CREATININE FOR GFR 0.53 MG/DL (0.55-1.02); GLOMERULAR FILTRATION RATE > 60.0 (>51); GLUCOSE, FASTING 116 MG/DL (70-105); POTASSIUM SERUM 4.2 MEQ/L (3.5-5.1); SODIUM LEVEL 137 MEQ/L (136-145)
[2017-09-10] MEDS ORDERED: ISOVUE-370 76% 100ML VIAL (Q9967) As Ordered (08:37)
[2017-09-10 09:30] LABS: CPK CREATINE PHOSPHOKINASE 311 U/L (26-192); TROPONIN I 0.38 NG/ML (< 0.10)
[2017-09-10 09:34] LABS: CK-MB VALUE MASS 1.9 NG/ML (0.0-3.6); MB/CK RELATIVE INDEX 0.61 (< OR =4)
[2017-09-10] MEDS: OLANZapine 10 MG TAB PO (10:39)
[2017-09-10] MEDS: DOCUSATE SODIUM 100 MG CAP PO (10:40)
[2017-09-10] MEDS: MOM 30ML SUSPENSION UDC PO (10:40)
[2017-09-10] MEDS: SERTRALINE HCL 50 MG TAB PO (10:41)
[2017-09-10] MEDS: MIRALAX *UNIT DOSE* 17GM PACKET PO (10:41)
[2017-09-10] MEDS: OMEPRAZOLE 20 MG CAP PO (10:41)
[2017-09-10] MEDS: QUEtiapine FUMARATE 25 MG TAB PO ×2 (10:41→15:03)
[2017-09-10] MEDS: TIMOLOL MALEATE 0.25% OPHTH SOLN 5 ML OD ×2 (10:42→20:55)
[2017-09-10 14:13] LABS: CPK CREATINE PHOSPHOKINASE 315 U/L (26-192); TROPONIN I 0.29 NG/ML (< 0.10)
[2017-09-10 14:14] LABS: CK-MB VALUE MASS 1.5 NG/ML (0.0-3.6); MB/CK RELATIVE INDEX 0.47 (< OR =4)
[2017-09-10] MEDS: LITHIUM CARBONATE 300 MG CAP PO (20:54)
[2017-09-10] MEDS: LATANOPROST 0.005% OPHTH SOLN 2.5 ML OU (20:55)
[2017-09-10] MEDS: QUEtiapine FUMARATE 200 MG TAB PO (20:55)
[2017-09-10 21:36] LABS: CPK CREATINE PHOSPHOKINASE 290 U/L (26-192); MB/CK RELATIVE INDEX 0.34 (< OR =4); TROPONIN I 0.21 NG/ML (< 0.10)
[2017-09-11] MEDS: LEVOTHYROXINE 50MCG TABLET (0.05MG) PO (05:05)
[2017-09-11 05:20] LABS: HEMATOCRIT 27.9 % (36.0-47.0); HEMOGLOBIN 8.5 g/dl (12.0-16.0); MEAN CORPUSCULAR HEMOGLOBIN 26.7 pg (27.0-33.0); MEAN CORPUSCULAR HGB CONC 30.5 g/dl (32.0-36.5); MEAN CORPUSCULAR VOLUME 87.7 fl (80.0-96.0); PLATELET COUNT, AUTOMATED 232 10^3/uL (150-450); RED BLOOD COUNT 3.18 10^6/uL (4.00-5.40); WHITE BLOOD COUNT 11.3 10^3/uL (4.0-10.0)
[2017-09-11 05:30] LABS: INR 1.99; PROTHROMBIN TIME 23.3 SECONDS (12.4-14.5)
[2017-09-11 05:32] LABS: CPK CREATINE PHOSPHOKINASE 188 U/L (26-192); TROPONIN I 0.14 NG/ML (< 0.10)
[2017-09-11 05:33] LABS: MB/CK RELATIVE INDEX 0.53 (< OR =4)
[2017-09-11] MEDS: traMADol 50 MG TAB PO ×2 (08:29→21:07)
[2017-09-11] MEDS: MOM 30ML SUSPENSION UDC PO (09:00)
[2017-09-11] MEDS: MIRALAX *UNIT DOSE* 17GM PACKET PO (09:00)
[2017-09-11] MEDS: SERTRALINE HCL 50 MG TAB PO (09:32)
[2017-09-11] MEDS: OLANZapine 10 MG TAB PO (09:34)
[2017-09-11] MEDS: DOCUSATE SODIUM 100 MG CAP PO (09:35)
[2017-09-11] MEDS: OMEPRAZOLE 20 MG CAP PO (09:35)
[2017-09-11] MEDS: QUEtiapine FUMARATE 25 MG TAB PO ×2 (09:36→14:18)
[2017-09-11] MEDS: TIMOLOL MALEATE 0.25% OPHTH SOLN 5 ML OD ×2 (09:41→21:06)
[2017-09-11 14:50] LABS: IMMEDIATE SPIN CROSSMATCH 1 1
[2017-09-11] MEDS: ACETAMINOPHEN TAB 650MG DOSE (2X325MG) PO (15:38)
[2017-09-11] MEDS: WARFARIN SOD 2 MG TAB PO (17:00)
[2017-09-11] MEDS: QUEtiapine FUMARATE 200 MG TAB PO (21:06)
[2017-09-11] MEDS: zolPIDEM TARTRATE 5 MG TAB PO (21:06)
[2017-09-11] MEDS: LATANOPROST 0.005% OPHTH SOLN 2.5 ML OU (21:06)
[2017-09-11] MEDS: LITHIUM CARBONATE 300 MG CAP PO (21:06)
[2017-09-12] MEDS: LEVOTHYROXINE 50MCG TABLET (0.05MG) PO (05:33)
[2017-09-12 06:58] LABS: HEMATOCRIT 29.2 % (36.0-47.0); HEMOGLOBIN 9.4 g/dl (12.0-16.0); INR 2.14; MEAN CORPUSCULAR HEMOGLOBIN 28.1 pg (27.0-33.0); MEAN CORPUSCULAR HGB CONC 32.2 g/dl (32.0-36.5); MEAN CORPUSCULAR VOLUME 87.2 fl (80.0-96.0); PLATELET COUNT, AUTOMATED 215 10^3/uL (150-450); PROTHROMBIN TIME 24.7 SECONDS (12.4-14.5); RED BLOOD COUNT 3.35 10^6/uL (4.00-5.40); RED CELL DISTRIBUTION WIDTH 14.9 % (11.5-14.5); WHITE BLOOD COUNT 8.5 10^3/uL (4.0-10.0)
[2017-09-12] MEDS: DOCUSATE SODIUM 100 MG CAP PO (08:36)
[2017-09-12] MEDS: QUEtiapine FUMARATE 25 MG TAB PO ×2 (08:36→13:20)
[2017-09-12] MEDS: MOM 30ML SUSPENSION UDC PO (08:36)
[2017-09-12] MEDS: OMEPRAZOLE 20 MG CAP PO (08:36)
[2017-09-12] MEDS: MIRALAX *UNIT DOSE* 17GM PACKET PO (08:37)
[2017-09-12] MEDS: OLANZapine 10 MG TAB PO (08:37)
[2017-09-12] MEDS: TIMOLOL MALEATE 0.25% OPHTH SOLN 5 ML OD ×2 (08:37→20:56)
[2017-09-12] MEDS: SERTRALINE HCL 50 MG TAB PO (08:37)
[2017-09-12] MEDS: traMADol 50 MG TAB PO ×2 (10:56→21:04)
[2017-09-12] MEDS: WARFARIN SOD 1 MG TAB PO (16:40)
[2017-09-12] MEDS: QUEtiapine FUMARATE 200 MG TAB PO (20:55)
[2017-09-12] MEDS: LITHIUM CARBONATE 300 MG CAP PO (20:55)
[2017-09-12] MEDS: LATANOPROST 0.005% OPHTH SOLN 2.5 ML OU (20:56)
[2017-09-12] MEDS: zolPIDEM TARTRATE 5 MG TAB PO (22:33)
[2017-09-13 00:08] LABS: QUETIAPINE LEVEL (SEROQUEL) 86 ng/ml (.)
[2017-09-13] MEDS: traMADol 50 MG TAB PO ×2 (03:43→09:22)
[2017-09-13] MEDS: LEVOTHYROXINE 50MCG TABLET (0.05MG) PO (06:24)
[2017-09-13 07:06] LABS: HEMATOCRIT 29.1 % (36.0-47.0); HEMOGLOBIN 9.2 g/dl (12.0-16.0); MEAN CORPUSCULAR HEMOGLOBIN 27.5 pg (27.0-33.0); MEAN CORPUSCULAR HGB CONC 31.6 g/dl (32.0-36.5); MEAN CORPUSCULAR VOLUME 87.1 fl (80.0-96.0); PLATELET COUNT, AUTOMATED 227 10^3/uL (150-450); RED BLOOD COUNT 3.34 10^6/uL (4.00-5.40); WHITE BLOOD COUNT 8.4 10^3/uL (4.0-10.0)
[2017-09-13 07:23] LABS: INR 1.72; PROTHROMBIN TIME 20.7 SECONDS (12.4-14.5)
[2017-09-13 07:32] LABS: ANION GAP 6 MEQ/L (8-16); BLOOD UREA NITROGEN 10 MG/DL (7-18); CALCIUM LEVEL 8.8 MG/DL (8.5-10.1); CARBON DIOXIDE LEVEL 29 MEQ/L (21-32); CHLORIDE LEVEL 103 MEQ/L (98-107); CREATININE FOR GFR 0.47 MG/DL (0.55-1.02); GLOMERULAR FILTRATION RATE > 60.0 (>51); GLUCOSE, FASTING 112 MG/DL (70-105); POTASSIUM SERUM 3.9 MEQ/L (3.5-5.1); SODIUM LEVEL 138 MEQ/L (136-145)
[2017-09-13] MEDS: DOCUSATE SODIUM 100 MG CAP PO (09:00)
[2017-09-13] MEDS: MOM 30ML SUSPENSION UDC PO (09:00)
[2017-09-13] MEDS: TIMOLOL MALEATE 0.25% OPHTH SOLN 5 ML OD (09:00)
[2017-09-13] MEDS: MIRALAX *UNIT DOSE* 17GM PACKET PO (09:00)
[2017-09-13] MEDS: SERTRALINE HCL 50 MG TAB PO (09:21)
[2017-09-13] MEDS: OMEPRAZOLE 20 MG CAP PO (09:22)
[2017-09-13] MEDS: QUEtiapine FUMARATE 12.5 MG HALF-TAB PO (09:22)
[2017-09-13] MEDS: OLANZapine 10 MG TAB PO (09:22)
[2017-09-13] MEDS ORDERED: WARFARIN SOD 2.5 MG TAB PO (17:00)
== END 2017-09-13 13:50 | DRG 470 ==
LOC: M OR 09:44 → M PCU 09-10 16:47 → M MS5PR 09-12 15:00
PROC: 0SRB04A Replacement of Left Hip Joint with Ceramic on Polyethylene Synthetic Substitute, Uncemented, Open Approach (ICD-10-PCS; principal; 2017-09-07 12:10)
DX: M16.12 Unilateral primary osteoarthritis, left hip (principal); Z68.41 Body mass index [BMI] 40.0-44.9, adult; B37.89 Other sites of candidiasis; E66.01 Morbid (severe) obesity due to excess calories; Z79.899 Other long term (current) drug therapy; Z79.82 Long term (current) use of aspirin; Z88.8 Allergy status to other drugs, medicaments and biological substances; K21.9 Gastro-esophageal reflux disease without esophagitis; E03.9 Hypothyroidism, unspecified; F20.9 Schizophrenia, unspecified; F60.3 Borderline personality disorder; M06.9 Rheumatoid arthritis, unspecified; R07.9 Chest pain, unspecified

== ENCOUNTER → 2017-10-16 | Outpatient (CLI) | payer MEDICARE, MEDICAID ==
[2017-10-16 09:52] LABS: BLOOD UREA NITROGEN 16 MG/DL (7-18)
[2017-10-16 09:52] LABS: CREATININE FOR GFR 0.65 MG/DL (0.55-1.30); GLOMERULAR FILTRATION RATE > 60.0 (>51)
[2017-10-16 09:55] LABS: LITHIUM LEVEL 0.35 MEQ/L (0.60-1.20)
== END ==
LOC: M LAB 08:50
DX: F25.0 Schizoaffective disorder, bipolar type (principal); Z79.899 Other long term (current) drug therapy
CPT/HCPCS: 82565

== ENCOUNTER → 2017-11-03 | Outpatient (REF) | payer MEDICARE, MEDICAID ==
[2017-11-03 15:36] LABS: BASO % 0.5 % (0.0-1.0); EOS # 0.2 10^3/uL (0.0-0.50); EOS % 2.8 % (0.0-3.0); HEMATOCRIT 36.9 % (36.0-47.0); HEMOGLOBIN 10.8 g/dl (12.0-16.0); IMMATURE GRANULOCYTE % 0.4 % (0-3.0); LYMPH # 1.3 10^3/uL (1.5-4.5); MEAN CORPUSCULAR HEMOGLOBIN 24.8 pg (27.0-33.0); MEAN CORPUSCULAR HGB CONC 29.3 g/dl (32.0-36.5); MEAN CORPUSCULAR VOLUME 84.8 fl (80.0-96.0); MONO # 0.6 10^3/uL (0.0-0.8); NEUTROPHILS % 73.3 % (36.0-66.0); PLATELET COUNT, AUTOMATED 266 10^3/uL (150-450); RED BLOOD COUNT 4.35 10^6/uL (4.00-5.40); RED CELL DISTRIBUTION WIDTH 14.8 % (11.5-14.5); WHITE BLOOD COUNT 8.1 10^3/uL (4.0-10.0)
[2017-11-03 15:57] LABS: ERYTHROCYTE SEDIMENTATION RATE 54 mm/hr (0-30)
[2017-11-03 16:16] LABS: C REACTIVE PROTEIN QUANTITATIV 0.74 MG/DL (0.00-0.30)
== END ==
LOC: M LABDRAW1 13:24
DX: Z47.1 Aftercare following joint replacement surgery (principal)
CPT/HCPCS: 86140

== ENCOUNTER → 2017-11-24 | Outpatient (REF) | payer MEDICARE, MEDICAID ==
[2017-11-24 14:07] LABS: INFLUENZA A AMPLIFICATION NEGATIVE (NEGATIVE); INFLUENZA B AMPLIFICATION NEGATIVE (NEGATIVE)
== END ==
LOC: M LAB REF 13:18
DX: Z11.59 Encounter for screening for other viral diseases (principal)
CPT/HCPCS: 87502

== ENCOUNTER → 2018-01-18 | Outpatient (REF) | payer MEDICARE, MEDICAID ==
[2018-01-18 18:36] LABS: APPEARANCE, URINE CLEAR (CLEAR); BACTERIA, URINE AUTO NEGATIVE (NEGATIVE); BILIRUBIN, URINE AUTO NEGATIVE (NEGATIVE); BLOOD, URINE BLOOD NEGATIVE (NEGATIVE); COLOR, URINE YELLOW (YELLOW); GLUCOSE, URINE (UA) AUTO NEGATIVE (NEGATIVE); KETONE, URINE AUTO NEGATIVE (NEGATIVE); LEUKOCYTE ESTERASE, URINE AUTO NEGATIVE (NEGATIVE); MUCUS, URINE SMALL (NEGATIVE); NITRITE, URINE AUTO NEGATIVE (NEGATIVE); PROTEIN, URINE AUTO NEGATIVE (NEGATIVE); RBC, URINE AUTO 1 /HPF (0-3); SPECIFIC GRAVITY URINE AUTO 1.018 (1.002-1.035); SQUAMOUS EPITHELIAL CELL UR AU 0 /HPF (0-6); UROBILINOGEN, URINE AUTO 0.2 mg/dL (0.0-2.0); WBC, URINE AUTO 4 /HPF (0-3)
== END ==
LOC: M LAB REF 16:38
DX: N39.0 Urinary tract infection, site not specified (principal)
CPT/HCPCS: 81001

== ENCOUNTER → 2018-02-04 | Outpatient (REF) | payer MEDICARE, MEDICAID ==
[2018-02-04 21:47] LABS: APPEARANCE, URINE CLEAR (CLEAR); BACTERIA, URINE AUTO NEGATIVE (NEGATIVE); BILIRUBIN, URINE AUTO NEGATIVE (NEGATIVE); BLOOD, URINE BLOOD NEGATIVE (NEGATIVE); COLOR, URINE YELLOW (YELLOW); GLUCOSE, URINE (UA) AUTO NEGATIVE (NEGATIVE); KETONE, URINE AUTO NEGATIVE (NEGATIVE); LEUKOCYTE ESTERASE, URINE AUTO TRACE (NEGATIVE); MUCUS, URINE SMALL (NEGATIVE); NITRITE, URINE AUTO NEGATIVE (NEGATIVE); PROTEIN, URINE AUTO NEGATIVE (NEGATIVE); RBC, URINE AUTO 2 /HPF (0-3); SPECIFIC GRAVITY URINE AUTO 1.021 (1.002-1.035); SQUAMOUS EPITHELIAL CELL UR AU 0 /HPF (0-6); TRANSITIONAL EPITHELIAL AUTO 1 /HPF; UROBILINOGEN, URINE AUTO 0.2 mg/dL (0.0-2.0); WBC, URINE AUTO 9 /HPF (0-3)
== END ==
LOC: M LAB REF 09:15
DX: R30.0 Dysuria (principal)
CPT/HCPCS: 81001

== ENCOUNTER 2018-02-05 14:14 | Emergency (ER) | payer MEDICARE, MEDICAID | END 2018-02-05 17:55 | disposition home or self-care (01) | LOC: M ED 14:14 | DX: M54.41 Lumbago with sciatica, right side (principal); F99 Mental disorder, not otherwise specified; Z88.8 Allergy status to other drugs, medicaments and biological substances; Z79.899 Other long term (current) drug therapy; Z79.82 Long term (current) use of aspirin | CPT/HCPCS: 99284 ==

== ENCOUNTER → 2018-02-19 | Outpatient (REF) | payer MEDICARE, MEDICAID ==
[2018-02-19 11:02] LABS: APPEARANCE, URINE HAZY (CLEAR); BACTERIA, URINE AUTO NEGATIVE (NEGATIVE); BILIRUBIN, URINE AUTO NEGATIVE (NEGATIVE); BLOOD, URINE BLOOD NEGATIVE (NEGATIVE); COLOR, URINE YELLOW (YELLOW); GLUCOSE, URINE (UA) AUTO NEGATIVE (NEGATIVE); KETONE, URINE AUTO NEGATIVE (NEGATIVE); LEUKOCYTE ESTERASE, URINE AUTO TRACE (NEGATIVE); NITRITE, URINE AUTO NEGATIVE (NEGATIVE); PROTEIN, URINE AUTO NEGATIVE (NEGATIVE); RBC, URINE AUTO 0 /HPF (0-3); SPECIFIC GRAVITY URINE AUTO 1.016 (1.002-1.035); SQUAMOUS EPITHELIAL CELL UR AU 0 /HPF (0-6); UROBILINOGEN, URINE AUTO 0.2 mg/dL (0.0-2.0); WBC, URINE AUTO 4 /HPF (0-3)
== END ==
LOC: SKLABADC 10:12
DX: N39.0 Urinary tract infection, site not specified (principal)
CPT/HCPCS: 81001

== ENCOUNTER → 2018-03-05 | Outpatient (CLI) | payer MEDICARE, MEDICAID | LOC: M WHC 13:10 | DX: Z12.31 Encounter for screening mammogram for malignant neoplasm of breast (principal); Z01.419 Encounter for gynecological examination (general) (routine) without abnormal findings (principal); Z92.89 Personal history of other medical treatment; Z80.3 Family history of malignant neoplasm of breast; Z12.12 Encounter for screening for malignant neoplasm of rectum | CPT/HCPCS: 77067 ==

== ENCOUNTER → 2018-03-09 | Outpatient (REF) | payer MEDICARE, MEDICAID ==
[2018-03-09 14:08] LABS: BLOOD UREA NITROGEN 18 MG/DL (7-18)
[2018-03-09 14:08] LABS: CREATININE FOR GFR 0.66 MG/DL (0.55-1.30); GLOMERULAR FILTRATION RATE > 60.0 (>51)
[2018-03-09 14:11] LABS: LITHIUM LEVEL 0.57 MEQ/L (0.60-1.20)
== END ==
LOC: SKLABADC 11:29
DX: F31.9 Bipolar disorder, unspecified (principal)
CPT/HCPCS: 82565

== ENCOUNTER → 2018-06-11 | Outpatient (REF) | payer MEDICARE, MEDICAID ==
[2018-06-11 14:59] LABS: CHOLESTEROL LEVEL 201 MG/DL (<200); CHOLESTEROL RISK RATIO 3.045 (<5); FREE T3 2.6 PG/ML (2.2-4.0); FREE T4 0.95 NG/DL (0.76-1.46); HDL CHOLESTEROL 66 MG/DL (>40); LDL CHOLESTEROL 91 MG/DL (<100); NON-HDL-C 135 MG/DL; TRIGLYCERIDES LEVEL 222 MG/DL (<150)
[2018-06-11 15:00] LABS: TOTAL 25(OH) VITAMIN D 27.7 NG/ML (30.0-100.0)
== END ==
LOC: SKLABADC 08:03
DX: E55.9 Vitamin D deficiency, unspecified (principal); E03.9 Hypothyroidism, unspecified; E78.49 Other hyperlipidemia; F31.9 Bipolar disorder, unspecified; Z79.899 Other long term (current) drug therapy
CPT/HCPCS: 82565

== ENCOUNTER → 2018-06-11 | Outpatient (REF) | payer MEDICARE, MEDICAID ==
[2018-06-11 11:02] LABS: ESTIMATED AVERAGE GLUCOSE 108 MG/DL (60-110); HEMOGLOBIN A1c 5.4 %
[2018-06-11 11:10] LABS: BLOOD UREA NITROGEN 15 MG/DL (7-18)
[2018-06-11 11:10] LABS: GLOMERULAR FILTRATION RATE > 60.0 (>51); LITHIUM LEVEL 0.89 MEQ/L (0.60-1.20)
== END ==
LOC: SKLABADC 07:58
DX: F31.9 Bipolar disorder, unspecified (principal)

== ENCOUNTER 2018-09-21 09:20 | Emergency (ER) | payer MEDICARE, MEDICAID ==
[~2018-09-21] VITALS: Ht 157.5 cm; Wt 112.0 kg
[2018-09-21 09:20] VITALS: BP 144/67
[~2018-09-21 09:20] MED LIST changes: -ACET1TAB17 PO; +ACET1TAB55 PO; +CEPH500C; +COUM2.5T17 PO; +HYDR1CRE TOP; +MELO15TA28 PO; -MELO15TA4 PO; +MOBI15TA PO; +MULTLIQ7 PO; +ROBA500T PO; +TIMO0.5S29 OD; +TIMO25OPD OU; +TRAM50TA2 PO; +XALA0.007 OU; +XARE10TA PO
[2018-09-21] MEDS ORDERED: CETI-14 (10:00)
[2018-09-21] MEDS ORDERED: CYCL5TAB (10:00)
[2018-09-21] MEDS ORDERED: HYDR200T3 (10:00)
[2018-09-21] MEDS ORDERED: KETOROLAC 60 MG/2 ML VIAL (J1885) IM ONE (10:00)
[2018-09-21] MEDS ORDERED: QUET1TAB9 (10:00)
[2018-09-21] MEDS ORDERED: CVS5TAB13 (10:00)
[2018-09-21] MEDS ORDERED: TRAM50TA2 (10:00)
[2018-09-21] MEDS ORDERED: BACI500O8 TOP (10:03)
== END 2018-09-21 10:28 | disposition home or self-care (01) ==
LOC: M ED 09:20
DX: T21.22XA Burn of second degree of abdominal wall, initial encounter (principal); T31.0 Burns involving less than 10% of body surface; X12.XXXA Contact with other hot fluids, initial encounter; Y92.89 Other specified places as the place of occurrence of the external cause; M54.31 Sciatica, right side; K21.9 Gastro-esophageal reflux disease without esophagitis; F25.9 Schizoaffective disorder, unspecified; R56.9 Unspecified convulsions; Z88.8 Allergy status to other drugs, medicaments and biological substances; Z79.890 Hormone replacement therapy; Z79.899 Other long term (current) drug therapy; Z79.82 Long term (current) use of aspirin
CPT/HCPCS: 16000; 96372; 99283; J1885

== ENCOUNTER → 2018-10-08 | Outpatient (REF) | payer MEDICARE, MEDICAID ==
[~2018-10-08] MED LIST changes: +BACI500O8 TOP; +CETI-14; +CVS5TAB13; +CYCL5TAB; +HYDR200T3; +QUET1TAB9; +TRAM50TA2
[2018-10-08 10:17] LABS: BLOOD UREA NITROGEN 16 MG/DL (7-18); CREATININE FOR GFR 0.71 MG/DL (0.55-1.30); GLOMERULAR FILTRATION RATE > 60.0 (>51)
== END ==
LOC: SKLABADC 08:25
PROVIDERS: ATTEND Psychiatry & Neurology Psychiatry
DX: F31.9 Bipolar disorder, unspecified (principal)

== ENCOUNTER 2018-10-14 12:44 | Emergency (ER) | payer MEDICARE, MEDICAID ==
[2018-10-14] MEDS ORDERED: KETOROLAC 60 MG/2 ML VIAL (J1885) IM ONE (13:30)
[2018-10-14 14:03] VITALS: BP 156/80
[2018-11-09] MEDS ORDERED: AMMO12CR4 (10:34)
[2018-11-09] MEDS ORDERED: ZOLO50TA PO (10:34)
== END 2018-10-14 14:06 | disposition home or self-care (01) ==
LOC: EDBD 12:44 → EDSEX 12:44 → M ED 12:44
DX: M54.41 Lumbago with sciatica, right side (principal); R56.9 Unspecified convulsions; G47.30 Sleep apnea, unspecified; K21.9 Gastro-esophageal reflux disease without esophagitis; I10 Essential (primary) hypertension; E03.9 Hypothyroidism, unspecified; Z86.718 Personal history of other venous thrombosis and embolism; F41.9 Anxiety disorder, unspecified; F32.9 Major depressive disorder, single episode, unspecified; F20.9 Schizophrenia, unspecified; F25.9 Schizoaffective disorder, unspecified; Z79.82 Long term (current) use of aspirin; Z79.899 Other long term (current) drug therapy; Z88.8 Allergy status to other drugs, medicaments and biological substances
CPT/HCPCS: 96372; 99284; J1885

== ENCOUNTER → 2018-11-23 | Outpatient (REF) | payer MEDICARE, MEDICAID ==
[~2018-11-23] MED LIST changes: +AMMO12CR4
[2018-11-23 12:16] LABS: CHOLESTEROL RISK RATIO 2.771 (<5); FREE T3 2.3 PG/ML (2.2-4.0); FREE T4 1.05 NG/DL (0.76-1.46); THYROID STIMULATING HORMONE 2.55 uIU/ML (0.358-3.740); TOTAL 25(OH) VITAMIN D 32.1 NG/ML (30.0-100.0)
== END ==
LOC: SKLABADC 09:21
PROVIDERS: ATTEND Family Medicine
DX: E55.9 Vitamin D deficiency, unspecified (principal); E03.9 Hypothyroidism, unspecified; E78.49 Other hyperlipidemia

== ENCOUNTER → 2018-12-07 | Outpatient (REF) | payer MEDICARE, MEDICAID ==
[~2018-12-07] MED LIST changes: -/HCTZ25TA PO; -/LAMO10TA; -/PANT40TA; -/PANT40TA OR; -/PANT40TA PO; -/WARF25TA; -AMMO12CR4; -AMMO12CR4 EXT; +AMMO12CR7; +AMMO12CR7 EXT; -ASPI1TAB PO; +ASPI81TA26 PO; -CALC1TAB64 PO; +CALC600T52 PO; +COUM1TAB18; -CVS5TAB13; -DOCU10ELUD PO; +DOCU5LIQ PO; -ENOX40SY; -HYDR EXT; +HYDR-3644 PO; +HYDR0.2C21 EXT; +LAMI1TAB7; +LATA0.0013 OU; -LATA5OPD OU; +LOVE1INJ; +MELA1TAB9; +NYST-15 TOP; -NYST10PW TOP; +PROT1TAB2; +PROT1TAB2 OR; +PROT1TAB2 PO; +TIMO0.2525 OU; -TIMO25OPD OU
[2018-12-07 11:37] LABS: BLOOD UREA NITROGEN 15 MG/DL (7-18); GLOMERULAR FILTRATION RATE > 60.0 (>51); LITHIUM LEVEL 0.82 MEQ/L (0.60-1.20)
== END ==
LOC: SKLABADC 09:57
PROVIDERS: ATTEND Psychiatry & Neurology Psychiatry
DX: F31.9 Bipolar disorder, unspecified (principal)

== ENCOUNTER 2018-12-29 03:30 | Emergency (ER) | payer MEDICARE, MEDICAID ==
[~2018-12-29] VITALS: Ht 157.5 cm; Wt 100.0 kg
[2018-12-29] MEDS ORDERED: ALLE180T33 PO (03:56)
[2018-12-29] MEDS ORDERED: KETOROLAC 60 MG/2 ML VIAL (J1885) IM ONE (06:30)
[2018-12-29 07:36] VITALS: BP 137/72
== END 2018-12-29 07:47 | disposition home or self-care (01) ==
LOC: M ED 03:30
DX: M16.11 Unilateral primary osteoarthritis, right hip (principal); J45.909 Unspecified asthma, uncomplicated; K21.9 Gastro-esophageal reflux disease without esophagitis; H40.9 Unspecified glaucoma; Z79.82 Long term (current) use of aspirin; Z79.899 Other long term (current) drug therapy; Z88.8 Allergy status to other drugs, medicaments and biological substances
CPT/HCPCS: 96372; 99284; J1885

== ENCOUNTER → 2019-01-18 | Outpatient (CLI) | payer MEDICARE, MEDICAID ==
[~2019-01-18] MED LIST changes: +ALLE180T33 PO
--- NOTE | 2019-01-18 10:18 | REP ---
Clinical: Right hip pain. Technique: Neutral and frog lateral views of the right hip. Findings: Mild arthritic changes include increased sclerosis to the acetabular roof with marginal spurring and associated joint space narrowing as well as subtle spurring/osteophyte formation along the femoral head/neck interface. No acute fracture dislocation. Surrounding soft tissues normal. Impression: Mild arthritic degenerative changes. Electronically Signed by Preet Reza MD 01/18/2019 10:09 A
--- NOTE | 2019-01-18 10:27 | REP ---
LUMBAR SPINE, FIVE VIEWS: HISTORY: Back pain. COMPARISON: 02/18/2010. There is no acute fracture. The L2-3 through L5-S1 intervertebral discs are decreased in height consistent with disc degeneration. Osteophytes are present on L2-S1. The facet joints are normal in appearance. There are 4 mm of retrolisthesis of L2 on 3. IMPRESSION: Degenerative change as described above. Electronically Signed by Pierre Reed MD 01/18/2019 10:31 A
== END ==
LOC: M RAD 09:18
PROVIDERS: ATTEND Nurse Practitioner Family
DX: M16.11 Unilateral primary osteoarthritis, right hip (principal); M51.36 Other intervertebral disc degeneration, lumbar region; M51.37 Other intervertebral disc degeneration, lumbosacral region

== ENCOUNTER → 2019-03-25 | Outpatient (CLI) | payer MEDICARE ==
--- NOTE | 2019-03-25 12:09 | REPMRS ---
Patient History The patient states she had a clinical breast exam in 02/2019. Patient is postmenopausal and is nulliparous. Family history of breast cancer at age 50 or over in mother, breast cancer at age 50 or over in maternal aunt. Benign excisional biopsy of the left breast, 1997. No Hormone Replacement Therapy Digital Woman Screen Mammo: March 25, 2019 - Exam #: [id number] Bilateral CC and MLO view(s) were taken. Technologist: Regi Nesbitt, Technologist Prior study comparison: March 05, 2018, bilateral digital woman screen mammo performed at [facility]. February 27, 2017, digital woman screen mammo performed at [facility]. January 08, 2016, digital woman screen mammo performed at [facility] [employer] [facility]. FINDINGS: There are scattered fibroglandular densities. There has been no change in the appearance of the mammogram from the prior studies. There is a mild amount of scattered fibroglandular density which is fairly symmetric. There is no interval development of dominant mass, architectural distortion, or grouped microcalcification suggestive of malignancy. 3-D tomosynthesis shows no additional findings. Assessment: BI-RADS/ACR category 1 mammogram. Negative Mammogram. Recommendation Breast MRI of both breasts in 6 months. Routine screening mammogram of both breasts in 1 year (for women over age 40). This patient's Lifetime Breast Cancer Risk is estimated at 23.2 %. Annual screening Breast MRI scanniing is recommended for patient's whose lifetime risk assessment is over 20%. This mammogram was interpreted with the aid of an FDA-approved computer-aided dectection system. Electronically Signed By: Troy Roach MD 03/25/19 1548
== END ==
LOC: M WHC 10:45
PROVIDERS: ATTEND Nurse Practitioner Family
DX: Z12.31 Encounter for screening mammogram for malignant neoplasm of breast (principal); Z78.0 Asymptomatic menopausal state; Z80.3 Family history of malignant neoplasm of breast; Z86.018 Personal history of other benign neoplasm

== ENCOUNTER → 2019-03-25 | Outpatient (REF) | payer MEDICARE, MEDICAID | LOC: M SFHCWAGY 11:07 | PROVIDERS: ATTEND Nurse Practitioner Family | DX: Z12.4 Encounter for screening for malignant neoplasm of cervix (principal); R87.615 Unsatisfactory cytologic smear of cervix ==

== ENCOUNTER → 2019-03-25 | Outpatient (REF) | payer MEDICARE, MEDICAID | LOC: M SFHCWAGY 15:48 | PROVIDERS: ATTEND Nurse Practitioner Family | DX: R30.0 Dysuria (principal) ==

== ENCOUNTER → 2019-05-03 | Outpatient (REF) | payer MEDICARE, MEDICAID ==
[~2019-05-03] MED LIST changes: -ARTI99.0 OU; +ARTIDRO2 OU; -QUET1TAB9; -QUET1TAB9 PO; +QUET200T2; +QUET200T2 PO
[2019-05-03 16:14] LABS: ALBUMIN 3.7 GM/DL (3.2-5.2); ALT/SGPT 29 U/L (12-78); BILIRUBIN,TOTAL 0.3 MG/DL (0.2-1.0); BLOOD UREA NITROGEN 13 MG/DL (7-18); CALCIUM LEVEL 9.3 MG/DL (8.5-10.1); CARBON DIOXIDE LEVEL 28 MEQ/L (21-32); CHLORIDE LEVEL 106 MEQ/L (98-107); CHOLESTEROL LEVEL 208 MG/DL (<200); CREATININE FOR GFR 0.72 MG/DL (0.55-1.30); FREE T4 0.93 NG/DL (0.76-1.46); GLOMERULAR FILTRATION RATE > 60.0 (>51); GLUCOSE, FASTING 105 MG/DL (70-100); HDL CHOLESTEROL 65 MG/DL (>40); LDL CHOLESTEROL 85 MG/DL (<100); NON-HDL-C 143 MG/DL; POTASSIUM SERUM 4.1 MEQ/L (3.5-5.1); SODIUM LEVEL 139 MEQ/L (136-145); TOTAL PROTEIN 7.1 GM/DL (6.4-8.2); TRIGLYCERIDES LEVEL 289 MG/DL (<150)
== END ==
LOC: M SFHCPLAZ 13:49
PROVIDERS: ATTEND Nurse Practitioner Family
DX: E03.9 Hypothyroidism, unspecified (principal); Z68.41 Body mass index [BMI] 40.0-44.9, adult; Z13.220 Encounter for screening for lipoid disorders

== ENCOUNTER 2019-05-19 10:36 | Emergency (ER) | payer MEDICARE, MEDICAID ==
[~2019-05-19] VITALS: Ht 160 cm; Wt 116.8 kg
[~2019-05-19 10:36] MED LIST changes: -OMEP40CA2 PO; +OMEP40CA97 PO
[2019-05-19] MEDS ORDERED: QUET1TAB7 (10:53)
[2019-05-19] MEDS ORDERED: KETOROLAC 60 MG/2 ML VIAL (J1885) IM ONE (12:00)
[2019-05-19] MEDS ORDERED: LIDOCAINE 5% (LIDODERM) PATCH TD ONE (12:00)
[2019-05-19] MEDS ORDERED: LIDO5DIS41 TD (12:24)
[2019-05-19 13:20] VITALS: BP 135/70
[2019-05-19] MEDS ORDERED: **NOTE PATIENT COMMENT** MISC XX SCH (21:00)
== END 2019-05-19 13:21 | disposition home or self-care (01) ==
LOC: EDBD 10:36 → M ED 10:36
DX: M54.10 Radiculopathy, site unspecified (principal); E07.9 Disorder of thyroid, unspecified; K21.9 Gastro-esophageal reflux disease without esophagitis; F25.9 Schizoaffective disorder, unspecified; K44.9 Diaphragmatic hernia without obstruction or gangrene; Z86.718 Personal history of other venous thrombosis and embolism; Z79.899 Other long term (current) drug therapy; Z79.82 Long term (current) use of aspirin; Z88.8 Allergy status to other drugs, medicaments and biological substances
CPT/HCPCS: 96372; 99284; J1885

== ENCOUNTER → 2019-07-12 | Outpatient (REF) | payer MEDICARE, MEDICAID ==
[~2019-07-12] MED LIST changes: +LIDO5DIS41 TD; +NON-325T5 PO; +QUET1TAB7
[2019-07-12 12:06] LABS: BASO % 0.6 % (0.0-1.0); EOS # 0.2 10^3/uL (0.0-0.5); EOS % 2.5 % (0.0-3.0); HEMATOCRIT 42.8 % (36.0-47.0); HEMOGLOBIN 12.8 g/dl (12.0-15.5); LYMPH # 0.9 10^3/uL (1.5-5.0); LYMPH % 12.9 % (24.0-44.0); MEAN CORPUSCULAR HEMOGLOBIN 27.9 pg (27.0-33.0); MEAN CORPUSCULAR HGB CONC 29.9 g/dl (32.0-36.5); MEAN CORPUSCULAR VOLUME 93.2 fl (80.0-96.0); MONO # 0.5 10^3/uL (0.0-0.8); MONO % 6.2 % (0.0-5.0); NEUTROPHILS # 5.6 10^3/uL (1.5-8.5); NEUTROPHILS % 77.2 % (36.0-66.0); PLATELET COUNT, AUTOMATED 212 10^3/uL (150-450); RED BLOOD COUNT 4.59 10^6/uL (4.00-5.40); WHITE BLOOD COUNT 7.2 10^3/uL (4.0-10.0)
[2019-07-12 12:47] LABS: ALBUMIN 3.7 GM/DL (3.2-5.2); ALT/SGPT 31 U/L (12-78); BILIRUBIN,TOTAL 0.4 MG/DL (0.2-1.0); BLOOD UREA NITROGEN 18 MG/DL (7-18); CALCIUM LEVEL 9.1 MG/DL (8.5-10.1); CARBON DIOXIDE LEVEL 29 MEQ/L (21-32); CHLORIDE LEVEL 104 MEQ/L (98-107); CHOLESTEROL LEVEL 196 MG/DL (<200); CHOLESTEROL RISK RATIO 2.648 (<5); CK-MB VALUE MASS 2.1 NG/ML (<3.6); CPK CREATINE PHOSPHOKINASE 92 U/L (26-192); CREATININE FOR GFR 0.71 MG/DL (0.55-1.30); FREE T4 0.92 NG/DL (0.76-1.46); GLOMERULAR FILTRATION RATE > 60.0 (>51); GLUCOSE, FASTING 96 MG/DL (70-100); HDL CHOLESTEROL 74 MG/DL (>40); LDL CHOLESTEROL 94 MG/DL (<100); NON-HDL-C 122 MG/DL; POTASSIUM SERUM 4.1 MEQ/L (3.5-5.1); SODIUM LEVEL 140 MEQ/L (136-145); TOTAL PROTEIN 7.4 GM/DL (6.4-8.2); TRIGLYCERIDES LEVEL 140 MG/DL (<150)
[2019-07-12 13:14] LABS: LITHIUM LEVEL 0.87 MEQ/L (0.60-1.20)
[2019-07-13 06:05] LABS: HEMOGLOBIN A1c 5.3 %
== END ==
LOC: SKLABADC 10:06
PROVIDERS: ATTEND Psychiatry & Neurology Child & Adolescent Psychiatry
DX: Z79.899 Other long term (current) drug therapy (principal)

== ENCOUNTER 2019-07-13 16:45 | Emergency (ER) | payer MEDICARE, MEDICAID ==
[~2019-07-13] VITALS: Ht 162.6 cm; Wt 114.4 kg
[~2019-07-13 16:45] MED LIST changes: -NON-325T5 PO
[2019-07-13] MEDS ORDERED: NON-325T5 PO (18:35)
[2019-07-13 18:51] VITALS: BP 161/74
--- NOTE | 2019-07-14 07:21 | REP ---
Right knee series: Four views. History: Trauma. Findings: Four views of the right knee demonstrate moderate three compartment osteoarthritis. There is patellofemoral joint space narrowing. Spur formation is seen. No evidence of fracture, subluxation or joint effusion. No sunrise view is included. Impression: Moderate osteoarthritis. No acute bony abnormality. Electronically Signed by William Roach MD 07/14/2019 08:29 A
== END 2019-07-13 20:25 | disposition home or self-care (01) ==
LOC: M ED 16:45
DX: S80.01XA Contusion of right knee, initial encounter (principal); W00.9XXA Unspecified fall due to ice and snow, initial encounter; Y92.9 Unspecified place or not applicable; Y93.9 Activity, unspecified; Y99.9 Unspecified external cause status; M17.11 Unilateral primary osteoarthritis, right knee; F25.9 Schizoaffective disorder, unspecified; K21.9 Gastro-esophageal reflux disease without esophagitis; K59.00 Constipation, unspecified; G47.30 Sleep apnea, unspecified; Z86.718 Personal history of other venous thrombosis and embolism; Z79.82 Long term (current) use of aspirin; Z79.899 Other long term (current) drug therapy; Z88.8 Allergy status to other drugs, medicaments and biological substances

== ENCOUNTER → 2019-08-14 | Outpatient (CLI) | payer MEDICARE, MEDICAID ==
[~2019-08-14] MED LIST changes: +NON-325T5 PO
[2019-08-14 15:18] LABS: HEMATOCRIT 42.6 % (36.0-47.0); HEMOGLOBIN 12.7 g/dl (12.0-15.5); MEAN CORPUSCULAR HEMOGLOBIN 27.4 pg (27.0-33.0); MEAN CORPUSCULAR HGB CONC 29.8 g/dl (32.0-36.5); MEAN CORPUSCULAR VOLUME 91.8 fl (80.0-96.0); PLATELET COUNT, AUTOMATED 225 10^3/uL (150-450); RED BLOOD COUNT 4.64 10^6/uL (4.00-5.40); WHITE BLOOD COUNT 7.1 10^3/uL (4.0-10.0)
[2019-08-14 15:54] LABS: ALBUMIN 3.8 GM/DL (3.2-5.2); ALT/SGPT 26 U/L (12-78); BILIRUBIN,TOTAL 0.2 MG/DL (0.2-1.0); BLOOD UREA NITROGEN 17 MG/DL (7-18); CALCIUM LEVEL 9.3 MG/DL (8.5-10.1); CARBON DIOXIDE LEVEL 30 MEQ/L (21-32); CHLORIDE LEVEL 109 MEQ/L (98-107); CREATININE FOR GFR 0.72 MG/DL (0.55-1.30); GLOMERULAR FILTRATION RATE > 60.0 (>51); GLUCOSE, FASTING 89 MG/DL (70-100); POTASSIUM SERUM 3.9 MEQ/L (3.5-5.1); SODIUM LEVEL 142 MEQ/L (136-145); TOTAL PROTEIN 7.4 GM/DL (6.4-8.2)
== END ==
LOC: M LAB 14:33
PROVIDERS: ATTEND Psychiatry & Neurology Child & Adolescent Psychiatry
DX: F25.0 Schizoaffective disorder, bipolar type (principal)

== ENCOUNTER → 2019-08-16 | Outpatient (REF) | payer MEDICARE, MEDICAID ==
[2019-08-16 18:23] LABS: APPEARANCE, URINE CLEAR (CLEAR); BACTERIA, URINE AUTO NEGATIVE (NEGATIVE); BILIRUBIN, URINE AUTO NEGATIVE (NEGATIVE); BLOOD, URINE BLOOD NEGATIVE (NEGATIVE); COLOR, URINE YELLOW (YELLOW); GLUCOSE, URINE (UA) AUTO NEGATIVE (NEGATIVE); KETONE, URINE AUTO NEGATIVE (NEGATIVE); LEUKOCYTE ESTERASE, URINE AUTO TRACE (NEGATIVE); NITRITE, URINE AUTO NEGATIVE (NEGATIVE); PROTEIN, URINE AUTO NEGATIVE (NEGATIVE); RBC, URINE AUTO 1 /HPF (0-3); SPECIFIC GRAVITY URINE AUTO 1.019 (1.002-1.035); SQUAMOUS EPITHELIAL CELL UR AU 0 /HPF (0-6); UROBILINOGEN, URINE AUTO 0.2 mg/dL (0.0-2.0); WBC, URINE AUTO 4 /HPF (0-3)
== END ==
LOC: M SFHCPLAZ 16:58
PROVIDERS: ATTEND Nurse Practitioner Family
DX: M54.9 Dorsalgia, unspecified (principal)

== ENCOUNTER → 2019-09-20 | Outpatient (REF) | payer MEDICARE, MEDICAID | LOC: SKLABADC 10:59 | PROVIDERS: ATTEND Psychiatry & Neurology Child & Adolescent Psychiatry | DX: F31.9 Bipolar disorder, unspecified (principal) ==

== ENCOUNTER 2019-10-18 12:23 | Emergency (ER) | payer MEDICARE, MEDICAID ==
[~2019-10-18] VITALS: Ht 167.6 cm; Wt 111.8 kg
[~2019-10-18 12:23] MED LIST changes: -ARTIDRO2 OU; +POLYOPD OU
[2019-10-18] MEDS ORDERED: SERO200T PO (12:48)
[2019-10-18] MEDS ORDERED: HYDR12.55 PO (12:48)
[2019-10-18] MEDS ORDERED: KETOROLAC 30 MG/ML VIAL (J1885) IM ONE (13:15)
[2019-10-18] MEDS ORDERED: LIDOCAINE 5% (LIDODERM) PATCH TD ONE (13:15)
[2019-10-18] MEDS ORDERED: LIDO5DIS41 TD (13:41)
[2019-10-18] MEDS ORDERED: NON-325T5 PO (13:47)
[2019-10-18 13:52] VITALS: BP 151/83
[2019-10-18] MEDS ORDERED: **NOTE PATIENT COMMENT** MISC XX SCH (21:00)
== END 2019-10-18 13:55 | disposition home or self-care (01) ==
LOC: M ED 12:23
DX: M89.29 Other disorders of bone development and growth, multiple sites (principal); M54.5 Low back pain; I10 Essential (primary) hypertension; F41.9 Anxiety disorder, unspecified; K59.00 Constipation, unspecified; E55.9 Vitamin D deficiency, unspecified; G47.30 Sleep apnea, unspecified; K21.9 Gastro-esophageal reflux disease without esophagitis; E03.9 Hypothyroidism, unspecified; F25.9 Schizoaffective disorder, unspecified; E66.9 Obesity, unspecified; Z79.82 Long term (current) use of aspirin; Z79.899 Other long term (current) drug therapy; Z88.8 Allergy status to other drugs, medicaments and biological substances
CPT/HCPCS: 96372; 99284; J1885

== ENCOUNTER → 2019-11-08 | Outpatient (REF) | payer MEDICARE, MEDICAID ==
[~2019-11-08] MED LIST changes: +HYDR12.55 PO; +SERO200T PO
[2019-11-08 13:35] LABS: ALT/SGPT 29 U/L (12-78); BILIRUBIN,TOTAL 0.3 MG/DL (0.2-1.0); BLOOD UREA NITROGEN 15 MG/DL (7-18); CALCIUM LEVEL 9.9 MG/DL (8.5-10.1); CARBON DIOXIDE LEVEL 32 MEQ/L (21-32); CHLORIDE LEVEL 103 MEQ/L (98-107); CHOLESTEROL LEVEL 210 MG/DL (<200); CHOLESTEROL RISK RATIO 2.957 (<5); CREATININE FOR GFR 0.67 MG/DL (0.55-1.30); GLOMERULAR FILTRATION RATE > 60.0 (>51); GLUCOSE, FASTING 86 MG/DL (70-100); HDL CHOLESTEROL 71 MG/DL (>40); LDL CHOLESTEROL 94 MG/DL (<100); NON-HDL-C 139 MG/DL; SODIUM LEVEL 140 MEQ/L (136-145); TOTAL PROTEIN 7.5 GM/DL (6.4-8.2); TRIGLYCERIDES LEVEL 225 MG/DL (<150)
== END ==
LOC: M SFHCPLAZ 11:18
PROVIDERS: ATTEND Nurse Practitioner Adult Health
DX: E03.9 Hypothyroidism, unspecified (principal); E78.2 Mixed hyperlipidemia; R60.0 Localized edema
CPT/HCPCS: 36415; 80053; 80061; 84443; G0463

== ENCOUNTER → 2020-03-09 | Outpatient (REF) | payer MEDICARE, MEDICAID ==
[~2020-03-09] MED LIST changes: +ASPI-546 PO; -ASPI1TAB15 PO; +ASPI81TA86 PO; -TAB-TAB PO; +TAB-TAB2 PO
[2020-03-09 14:54] LABS: ALT/SGPT 33 U/L (12-78); BILIRUBIN,TOTAL 0.2 MG/DL (0.2-1.0); BLOOD UREA NITROGEN 21 MG/DL (7-18); CARBON DIOXIDE LEVEL 31 MEQ/L (21-32); CHLORIDE LEVEL 103 MEQ/L (98-107); CHOLESTEROL LEVEL 213 MG/DL (<200); CHOLESTEROL RISK RATIO 2.878 (<5); GLOMERULAR FILTRATION RATE > 60.0 (>51); GLUCOSE, FASTING 91 MG/DL (70-100); HDL CHOLESTEROL 74 MG/DL (>40); LDL CHOLESTEROL 92 MG/DL (<100); NON-HDL-C 139 MG/DL; POTASSIUM SERUM 3.8 MEQ/L (3.5-5.1); SODIUM LEVEL 138 MEQ/L (136-145); TOTAL 25(OH) VITAMIN D 20.3 NG/ML (30.0-100.0); TOTAL PROTEIN 7.6 GM/DL (6.4-8.2); TRIGLYCERIDES LEVEL 234 MG/DL (<150)
== END ==
LOC: M SFHCPLAZ 11:15
PROVIDERS: ATTEND Nurse Practitioner Adult Health
DX: E78.2 Mixed hyperlipidemia (principal); E03.9 Hypothyroidism, unspecified; R60.0 Localized edema; E55.9 Vitamin D deficiency, unspecified
CPT/HCPCS: 36415; 80053; 80061; 82306; 84443; G0463

== ENCOUNTER → 2020-04-10 | Outpatient (REF) | payer MEDICARE, MEDICAID | LOC: M SFHCPLAZ 12:44 | PROVIDERS: ATTEND Nurse Practitioner Family | DX: Z12.4 Encounter for screening for malignant neoplasm of cervix (principal); R87.615 Unsatisfactory cytologic smear of cervix | CPT/HCPCS: G0101; G0123 ==

== ENCOUNTER → 2020-05-04 | Outpatient (CLI) | payer MEDICARE, MEDICAID ==
[2020-05-04 09:02] LABS: BASO % 0.5 % (0.0-1.0); EOS # 0.2 10^3/uL (0.0-0.5); EOS % 3.2 % (0.0-3.0); HEMATOCRIT 42.8 % (36.0-47.0); HEMOGLOBIN 13.3 g/dl (12.0-15.5); LYMPH % 15.4 % (24.0-44.0); MEAN CORPUSCULAR HEMOGLOBIN 28.7 pg (27.0-33.0); MEAN CORPUSCULAR HGB CONC 31.1 g/dl (32.0-36.5); MEAN CORPUSCULAR VOLUME 92.2 fl (80.0-96.0); MONO # 0.5 10^3/uL (0.0-0.8); NEUTROPHILS # 4.8 10^3/uL (1.5-8.5); NEUTROPHILS % 73.3 % (36.0-66.0); PLATELET COUNT, AUTOMATED 197 10^3/uL (150-450); RED BLOOD COUNT 4.64 10^6/uL (4.00-5.40); WHITE BLOOD COUNT 6.6 10^3/uL (4.0-10.0)
[2020-05-04 09:28] LABS: ALT/SGPT 26 U/L (12-78); C REACTIVE PROTEIN QUANTITATIV 0.83 MG/DL (0.00-0.30); CREATININE FOR GFR 0.75 MG/DL (0.55-1.30); GLOMERULAR FILTRATION RATE > 60.0 (>51)
[2020-05-04 09:51] LABS: ERYTHROCYTE SEDIMENTATION RATE 14 mm/hr (0-30)
== END ==
LOC: M LAB 08:06
PROVIDERS: ATTEND Nurse Practitioner Family
DX: M35.1 Other overlap syndromes (principal); R76.8 Other specified abnormal immunological findings in serum; R70.0 Elevated erythrocyte sedimentation rate; M25.50 Pain in unspecified joint

== ENCOUNTER → 2020-06-08 | Outpatient (CLI) | payer MEDICARE, MEDICAID ==
[~2020-06-08] MED LIST changes: +ACET-838 PO; -NON-325T5 PO
--- NOTE | 2020-06-08 14:38 | REPMRS ---
Patient History The patient states she had a clinical breast exam in 05/2020. Family history of breast cancer at age 50 or over in mother, breast cancer at age 50 or over in maternal aunt. Benign excisional biopsy of the left breast, 1997. No Hormone Replacement Therapy Digital Woman Screen Mammo: June 08, 2020 - Exam #: [id number] Bilateral CC and MLO view(s) were taken. Technologist: Regi Nesbitt, Technologist Prior study comparison: March 25, 2019, bilateral digital woman screen mammo performed at [facility]. March 05, 2018, bilateral digital woman screen mammo performed at [facility]. February 27, 2017, digital woman screen mammo performed at [facility]. FINDINGS: The breast tissue is almost entirely fat. The Volpara volumetric breast density category is: A. There has been no change in the appearance of the mammogram from the prior studies. There is no interval development of dominant mass, architectural distortion, or grouped microcalcification typical of malignancy. 3-D tomosynthesis shows no additional findings. Assessment: BI-RADS/ACR category 1 mammogram. Negative Mammogram. Recommendation Breast MRI of both breasts in 6 months. Routine screening mammogram of both breasts in 1 year (for women over age 40). This patient's Lifetime Breast Cancer RIsk is estimated at 22.6 %. Annual screening Breast MRI scanniing is recommended for patient's whose lifetime risk assessment is over 20%. This mammogram was interpreted with the aid of an FDA-approved computer-aided dectection system. Electronically Signed By: Troy Roach MD 06/08/20 4331
== END ==
LOC: M WHC 13:38
PROVIDERS: ATTEND Nurse Practitioner Family
DX: Z12.31 Encounter for screening mammogram for malignant neoplasm of breast (principal); Z80.3 Family history of malignant neoplasm of breast; Z86.018 Personal history of other benign neoplasm; R87.615 Unsatisfactory cytologic smear of cervix
CPT/HCPCS: 77063; 77067; G0123

== ENCOUNTER → 2020-06-08 | Outpatient (REF) | payer MEDICARE, MEDICAID ==
[~2020-06-08] MED LIST changes: -ACET-838 PO; +NON-325T5 PO
== END ==
LOC: M SFHCWAGY 16:59
PROVIDERS: ATTEND Nurse Practitioner Family
DX: R87.618 Other abnormal cytological findings on specimens from cervix uteri (principal)

== ENCOUNTER → 2020-10-08 | Outpatient (REF) | payer MEDICARE, MEDICAID ==
[~2020-10-08] MED LIST changes: +ACET-838 PO; -NON-325T5 PO; -QUET1TAB7; -QUET1TAB7 PO; +QUET25TA3; +QUET25TA3 PO
[2020-10-08 11:08] LABS: ALBUMIN 3.8 GM/DL (3.2-5.2); ALT/SGPT 28 U/L (12-78); BILIRUBIN,TOTAL 0.3 MG/DL (0.2-1.0); BLOOD UREA NITROGEN 14 MG/DL (7-18); CARBON DIOXIDE LEVEL 32 MEQ/L (21-32); CHLORIDE LEVEL 102 MEQ/L (98-107); CHOLESTEROL LEVEL 208 MG/DL (<200); CHOLESTEROL RISK RATIO 3.058 (<5); CREATININE FOR GFR 0.76 MG/DL (0.55-1.30); GLOMERULAR FILTRATION RATE > 60.0 (>45); GLUCOSE, FASTING 87 MG/DL (70-100); HDL CHOLESTEROL 68 MG/DL (>40); LDL CHOLESTEROL 102 MG/DL (<100); NON-HDL-C 140 MG/DL; POTASSIUM SERUM 3.8 MEQ/L (3.5-5.1); SODIUM LEVEL 141 MEQ/L (136-145); TOTAL 25(OH) VITAMIN D 26.2 NG/ML (30.0-100.0); TOTAL PROTEIN 7.5 GM/DL (6.4-8.2); TRIGLYCERIDES LEVEL 191 MG/DL (<150)
== END ==
LOC: M SFHCPLAZ 08:46
PROVIDERS: ATTEND Nurse Practitioner Adult Health
DX: E78.2 Mixed hyperlipidemia (principal); E55.9 Vitamin D deficiency, unspecified; E03.9 Hypothyroidism, unspecified

== ENCOUNTER → 2021-03-10 | Outpatient (CLI) | payer MEDICARE, MEDICAID ==
[~2021-03-10] MED LIST changes: -ACET-838 PO; +ACET32TAB PO; -CALC600T52 PO; +CALC600T64 PO; -OLAN10TA2 PO; +OLAN1TAB16 PO; +OLAN1TAB20 PO; -OLAN5TAB PO; +OMEP40CA4 PO; -OMEP40CA97 PO
[2021-03-10 17:55] LABS: ALBUMIN 3.8 GM/DL (3.2-5.2); ALT/SGPT 30 U/L (12-78); BILIRUBIN,TOTAL 0.3 MG/DL (0.2-1.0); BLOOD UREA NITROGEN 14 MG/DL (7-18); CARBON DIOXIDE LEVEL 29 MEQ/L (21-32); CHLORIDE LEVEL 107 MEQ/L (98-107); CHOLESTEROL LEVEL 211 MG/DL (<200); CHOLESTEROL RISK RATIO 2.971 (<5); GLOMERULAR FILTRATION RATE > 60.0 (>45); GLUCOSE, FASTING 98 MG/DL (70-100); HDL CHOLESTEROL 71 MG/DL (>40); LDL CHOLESTEROL 96 MG/DL (<100); NON-HDL-C 140 MG/DL; SODIUM LEVEL 141 MEQ/L (136-145); TOTAL PROTEIN 7.1 GM/DL (6.4-8.2); TRIGLYCERIDES LEVEL 219 MG/DL (<150)
[2021-03-10 17:56] LABS: TOTAL 25(OH) VITAMIN D 23.4 NG/ML (30.0-100.0)
== END ==
LOC: M PLALAB 14:43
PROVIDERS: ATTEND Nurse Practitioner Adult Health
DX: E55.9 Vitamin D deficiency, unspecified (principal); E78.2 Mixed hyperlipidemia; E03.9 Hypothyroidism, unspecified
CPT/HCPCS: 36415; 80053; 80061; 82306; 84443; G0463

== ENCOUNTER 2021-04-21 12:22 | Emergency (ER) | payer MEDICARE, MEDICAID ==
[~2021-04-21] VITALS: Ht 172.7 cm; Wt 104.5 kg
[~2021-04-21 12:22] MED LIST changes: +QUET1TAB17; +QUET1TAB17 PO; -QUET25TA3; -QUET25TA3 PO
[2021-04-21 15:44] LABS: HEMATOCRIT 41.3 % (36.0-47.0); HEMOGLOBIN 12.9 g/dl (12.0-15.5); MEAN CORPUSCULAR HGB CONC 31.2 g/dl (32.0-36.5); MEAN CORPUSCULAR VOLUME 92.8 fl (80.0-96.0); PLATELET COUNT, AUTOMATED 206 10^3/uL (150-450); RED BLOOD COUNT 4.45 10^6/uL (4.00-5.40); WHITE BLOOD COUNT 6.8 10^3/uL (4.0-10.0)
[2021-04-21 16:31] LABS: ACETAMINOPHEN LEVEL < 2.0 UG/ML (10.0-30.0); ALBUMIN 3.6 GM/DL (3.2-5.2); ALT/SGPT 30 U/L (12-78); BILIRUBIN,DIRECT < 0.1 MG/DL (0.0-0.2); BILIRUBIN,TOTAL 0.4 MG/DL (0.2-1.0); BLOOD UREA NITROGEN 16 MG/DL (7-18); CALCIUM LEVEL 9.5 MG/DL (8.8-10.2); CARBON DIOXIDE LEVEL 27 MEQ/L (21-32); CHLORIDE LEVEL 109 MEQ/L (98-107); CREATININE FOR GFR 0.62 MG/DL (0.55-1.30); ETHYL ALCOHOL (ETHANOL) < 0.003 % (0.000-0.010); GLOMERULAR FILTRATION RATE > 60.0 (>45); GLUCOSE, FASTING 86 MG/DL (70-100); LITHIUM LEVEL 1.01 MEQ/L (0.60-1.20); POTASSIUM SERUM 4.1 MEQ/L (3.5-5.1); SALICYLATE LEVEL < 1.7 MG/DL (5.0-30.0); SODIUM LEVEL 142 MEQ/L (136-145); TOTAL PROTEIN 6.9 GM/DL (6.4-8.2)
[2021-04-21] MEDS ORDERED: hydrOXYzine 25 MG TAB PO STA (16:34)
[2021-04-21] MEDS ORDERED: XANA1TAB2 PO (16:49)
[2021-04-21] MEDS ORDERED: ALPRAZolam 0.25 MG TAB PO ONE (16:50)
[2021-04-21] MEDS ORDERED: XANA0.25 PO (16:58)
[2021-04-21 18:00] VITALS: BP 150/73
== END 2021-04-21 18:05 | disposition home or self-care (01) ==
LOC: M ED 12:22
DX: F41.8 Other specified anxiety disorders (principal); R45.4 Irritability and anger; I10 Essential (primary) hypertension; F20.9 Schizophrenia, unspecified; G47.33 Obstructive sleep apnea (adult) (pediatric); E03.9 Hypothyroidism, unspecified; Z86.718 Personal history of other venous thrombosis and embolism; Z79.82 Long term (current) use of aspirin; Z79.899 Other long term (current) drug therapy; Z88.8 Allergy status to other drugs, medicaments and biological substances

== ENCOUNTER 2021-04-28 19:22 | Inpatient (IN) | payer MEDICARE, MEDICAID ==
[~2021-04-28] VITALS: Ht 162.6 cm; Wt 103.1 kg
[~2021-04-28 19:22] MED LIST changes: +XANA1TAB2 PO
[2021-04-28 20:46] LABS: HEMATOCRIT 39.8 % (36.0-47.0); HEMOGLOBIN 12.5 g/dl (12.0-15.5); MEAN CORPUSCULAR HEMOGLOBIN 28.9 pg (27.0-33.0); MEAN CORPUSCULAR HGB CONC 31.4 g/dl (32.0-36.5); MEAN CORPUSCULAR VOLUME 91.9 fl (80.0-96.0); PLATELET COUNT, AUTOMATED 206 10^3/uL (150-450); RED BLOOD COUNT 4.33 10^6/uL (4.00-5.40)
[2021-04-28 21:15] LABS: AMPHETAMINES LEVEL URINE NEGATIVE (NEGATIVE); BARBITURATES URINE NEGATIVE (NEGATIVE); BENZODIAZEPINES URINE POSITIVE (NEGATIVE); CANNABINOIDS URINE NEGATIVE (NEGATIVE); COCAINE METABOLITE URINE NEGATIVE (NEGATIVE); METHADONE URINE NEGATIVE (NEGATIVE); OPIATES URINE NEGATIVE (NEGATIVE); PHENCYCLIDINE URINE NEGATIVE (NEGATIVE)
[2021-04-28 21:25] LABS: ACETAMINOPHEN LEVEL < 2.0 UG/ML (10.0-30.0); ALBUMIN 3.6 GM/DL (3.2-5.2); ALT/SGPT 28 U/L (12-78); BILIRUBIN,DIRECT 0.1 MG/DL (0.0-0.2); BILIRUBIN,TOTAL 0.3 MG/DL (0.2-1.0); BLOOD UREA NITROGEN 15 MG/DL (7-18); CALCIUM LEVEL 9.5 MG/DL (8.8-10.2); CARBON DIOXIDE LEVEL 29 MEQ/L (21-32); CHLORIDE LEVEL 109 MEQ/L (98-107); CREATININE FOR GFR 0.63 MG/DL (0.55-1.30); ETHYL ALCOHOL (ETHANOL) < 0.003 % (0.000-0.010); GLOMERULAR FILTRATION RATE > 60.0 (>45); GLUCOSE, FASTING 94 MG/DL (70-100); SALICYLATE LEVEL < 1.7 MG/DL (5.0-30.0); SODIUM LEVEL 142 MEQ/L (136-145); TOTAL PROTEIN 6.9 GM/DL (6.4-8.2)
[2021-04-29] MEDS ORDERED: HYDR12.55 PO (01:18)
[2021-04-29] MEDS ORDERED: LIDO2SOL17 SSP (01:18)
[2021-04-29] MEDS ORDERED: QUET400T42 PO (01:18)
[2021-04-29] MEDS ORDERED: ZOLO100T PO (01:18)
[2021-04-29] MEDS ORDERED: ASPI-161 PO (01:18)
[2021-04-29] MEDS ORDERED: FEXO180T70 PO (01:18)
[2021-04-29] MEDS ORDERED: CALC600T17 PO (01:18)
[2021-04-29] MEDS ORDERED: QUET1TAB17 PO (01:18)
[2021-04-29] MEDS ORDERED: TIMO0.5S39 OU (01:18)
[2021-04-29] MEDS ORDERED: HYDR200T3 PO (01:18)
[2021-04-29] MEDS ORDERED: AMMO12LO TOP (01:18)
[2021-04-29] MEDS ORDERED: CRAN400C PO (01:18)
[2021-04-29] MEDS ORDERED: XALA0.007 OU (01:18)
[2021-04-29] MEDS ORDERED: SERT50TA29 PO (01:18)
[2021-04-29] MEDS ORDERED: VITMTA PO (01:18)
[2021-04-29] MEDS ORDERED: CICL0.7739 EXT (01:19)
[2021-04-29] MEDS ORDERED: HOME MED LIST COMPLETE! XX SCH (01:20)
[2021-04-29 01:27] LABS: RSV AMPLIFICATION NEGATIVE (NEGATIVE)
[2021-04-29] MEDS ORDERED: MOM 30ML SUSPENSION UDC PO PRN (01:30)
[2021-04-29] MEDS ORDERED: MAALOX 30 ML SUSP *UDC PO PRN (01:30)
[2021-04-29 03:12] VITALS: BP 139/78
[2021-04-29 06:38] VITALS: BP 159/84
[2021-04-29] MEDS ORDERED: FLUBLOK(EGG FREE)(QUAD)INFLUENZA VACC 0.5ML SYRINGE 18YRS & OLDER IM ONE (12:00)
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
[2021-04-29 18:05] VITALS: BP 176/82
[2021-04-29] MEDS ORDERED: LACTIC ACID 12% LOTION 225 GM BTL TOP PRN (20:50)
[2021-04-29] MEDS ORDERED: LIDOCAINE VISCOUS 2% SOLN 15ML UDC SSP PRN (20:50)
[2021-04-29] MEDS ORDERED: POLYVINYL ALCOHOL OPHTH SOLN 15 ML(LIQUITEARS) OU PRN (21:00)
[2021-04-29] MEDS: amLODIPine 5 MG TAB PO SCH ×2 (21:43→22:55)
[2021-04-29] MEDS: LATANOPROST 0.005% OPHTH SOLN 2.5 ML OU SCH (21:53)
[2021-04-29] MEDS: HYDROXYCHLOROQUINE 200 MG TAB PO SCH ×2 (21:53→22:54)
[2021-04-29] MEDS: TIMOLOL MALEATE 0.5% OPHTH SOLN 5 ML OU SCH (21:53)
[2021-04-29 22:00] VITALS: BP 158/100
[2021-04-29] MEDS: traZODone 50 MG TAB PO PRN (22:59)
[2021-04-30] MEDS: LEVOTHYROXINE 50MCG TABLET (0.05MG) PO SCH (06:53)
[2021-04-30 07:44] VITALS: BP 140/72
[2021-04-30] MEDS: TIMOLOL MALEATE 0.5% OPHTH SOLN 5 ML OU SCH ×2 (09:19→21:47)
[2021-04-30] MEDS: ASPIRIN 81MG ENTERIC TABLET PO SCH (09:19)
[2021-04-30] MEDS: SERTRALINE 100 MG TAB PO SCH (09:19)
[2021-04-30] MEDS: MULTIVITAMINS/MINERALS THERAP 1 TAB PO SCH (09:19)
[2021-04-30] MEDS: OMEPRAZOLE 20 MG CAP PO SCH (09:19)
[2021-04-30] MEDS: LITHIUM CARBONATE 300 MG CAP PO SCH ×2 (09:19→21:49)
[2021-04-30] MEDS: HYDROXYCHLOROQUINE 200 MG TAB PO SCH ×2 (09:40→21:50)
--- NOTE | 2021-04-30 15:13 | MHIPN ---
[facility] PROGRESS NOTE DATE: 04/30/2021 SUBJECTIVE: Patient reports she has been doing well. She does not have any suicidal thoughts. Patient still seems to be a little bit confused. OBJECTIVE: She is a 60-year-old female, living by herself in an apartment provided by transitional living services ([facility]). She was admitted because of suicidal thoughts. Her compliance with the medication is questionable. Patient reports periodically she took her medications. Her sleep and appetite are better; however, still she has some depressed mood. Her suicidal thoughts have resolved. MENTAL STATUS EXAMINATION: She is a 60-year-old female, well groomed. Behavior is cooperative. Eye contact is somewhat evasive. There is some thought blocking. Mood is depressed. Affect is blunted. Speech rate, rhythm, volume are low. Rate is slow. Thought process is goal directed at times, tangential at times. Denied any auditory or visual hallucinations. Currently denies any suicidal thoughts. Her insight and judgment are limited. VITAL SIGNS: Temperature 97.2, pulse is 79, blood pressure is 140/92, respiratory rate is 16, pulse oximetry 96. LABORATORY DATA: CBC within normal limits. Chemistry within normal limits. Toxicology was positive for benzodiazepine. CURRENT MEDICATIONS: - quetiapine 100 mg at night - sertraline 100 mg in the morning - lithium carbonate 300 mg twice daily ASSESSMENT: 1. Schizoaffective disorder, bipolar type. 2. Anxiety disorder, unspecified. 3. Sleep apnea. 4. Hypertension. PLAN: Continue current medication. Needs further stabilization, as patient is still somewhat confused. ESTIMATED LENGTH OF STAY: 4-5 days. TIME SPENT: 25 minutes.
[2021-04-30 16:05] VITALS: BP 146/76
--- NOTE | 2021-04-30 16:42 | ECGEPIP ---
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
[2021-04-30] MEDS: LATANOPROST 0.005% OPHTH SOLN 2.5 ML OU SCH (21:46)
[2021-04-30] MEDS: amLODIPine 5 MG TAB PO SCH (21:49)
[2021-04-30] MEDS: traZODone 50 MG TAB PO PRN (21:49)
[2021-04-30] MEDS: QUEtiapine FUMARATE 100 MG TAB PO SCH (21:49)
[2021-05-01] MEDS: LEVOTHYROXINE 50MCG TABLET (0.05MG) PO SCH (05:33)
[2021-05-01 06:16] VITALS: BP 117/68
[2021-05-01] MEDS: MULTIVITAMINS/MINERALS THERAP 1 TAB PO SCH (09:54)
[2021-05-01] MEDS: LITHIUM CARBONATE 300 MG CAP PO SCH ×2 (09:54→20:55)
[2021-05-01] MEDS: TIMOLOL MALEATE 0.5% OPHTH SOLN 5 ML OU SCH ×2 (09:54→20:55)
[2021-05-01] MEDS: HYDROXYCHLOROQUINE 200 MG TAB PO SCH ×2 (09:54→20:56)
[2021-05-01] MEDS: ASPIRIN 81MG ENTERIC TABLET PO SCH (09:54)
[2021-05-01] MEDS: SERTRALINE 100 MG TAB PO SCH (09:54)
[2021-05-01] MEDS: OMEPRAZOLE 20 MG CAP PO SCH (09:54)
[2021-05-01 16:10] VITALS: BP 150/70
[2021-05-01] MEDS: DOCUSATE SODIUM 100MG CAPSULE PO PRN (16:29)
--- NOTE | 2021-05-01 17:58 | MHIPNPDOC ---
[facility] Progress Note Progress Note DATE OF SERVICE: 05/01/21 SUBJECTIVE: Patient is calm and cooperative. Reported that she has been doing well and denied any side effect of the medications. OBJECTIVE: She is a 60-year-old female, living by herself in an apartment provided by transitional living services ([facility]). She was admitted because of suicidal thoughts. Her compliance with the medication is questionable. Patient reports periodically she took her medications. Her sleep and appetite are better; however, still she has some depressed mood. Her suicidal thoughts have resolved. MENTAL STATUS EXAMINATION: She is a 60-year-old female, well groomed. Behavior is cooperative. Eye contact is somewhat evasive. There is some thought blocking. Mood is depressed. Affect is blunted. Speech rate, rhythm, volume are low. Rate is slow. Thought process is goal directed at times, tangential at times. Denied any auditory or visual hallucinations. Currently denies any suicidal thoughts. Her insight and judgment are limited. VITAL SIGNS: Temperature 97.2, pulse is 79, blood pressure is 140/92, respiratory rate is 16, pulse oximetry 96. LABORATORY DATA: CBC within normal limits. Chemistry within normal limits. Toxicology was positive for benzodiazepine. CURRENT MEDICATIONS: - quetiapine 100 mg at night - sertraline 100 mg in the morning - lithium carbonate 300 mg twice daily ASSESSMENT: 1. Schizoaffective disorder, bipolar type. 2. Anxiety disorder, unspecified. 3. Sleep apnea. 4. Hypertension. PLAN: Continue current medication. Needs further stabilization, ESTIMATED LENGTH OF STAY: 4-5 days. TIME SPENT: 25 minutes. Vital Signs Vital Signs Date Time Temp Pulse Resp B/P (MAP) Pulse Ox O2 Delivery O2 Flow Rate FiO2 05/01/21 16:10 97.9 79 16 150/70 (96) 100 Room Air Current Medications Current Medications Medications (Trade) Dose Ordered Sig/Suzanne Route PRN Reason Start Time Stop Time Status Last Admin Dose Admin Acetaminophen (Tylenol Tab) 650 mg Q6HP PRN PO HEADACHE or MILD DISCOMFORT 04/29/21 01:30 Al Hydrox/Mg Hydrox/Simethicone (Mylanta) 30 ml Q4HP PRN PO HEARTBURN/INDIGESTION 04/29/21 01:30 Amlodipine Besylate (Norvasc) 5 mg QHS PO 04/29/21 21:00 04/30/21 21:49 Artificial Tears (Akwa Tears) 1 drop QID PRN OU DRY EYES 04/29/21 21:00 Aspirin (Ecotrin) 81 mg DAILY PO 04/30/21 09:00 05/01/21 09:54 Docusate Sodium (Colace) 200 mg DAILYPRN PRN PO CONSTIPATION 04/29/21 20:25 05/01/21 16:29 Home Med (Home Med List Complete!) ASDIRECTED XX 04/29/21 01:20 04/29/21 01:38 DC Hydroxychloroquine Sulfate (Plaquenil) 200 mg BID PO 04/29/21 21:00 05/01/21 09:54 Lactic Acid (Lac-Hydrin 12% Lotion) 1 dose DAILY PRN TOP DRY SKIN 04/29/21 20:50 Latanoprost (Xalatan 0.005% Op Soln) 1 drop QHS OU 04/29/21 21:00 04/30/21 21:46 Levothyroxine Sodium (Synthroid) 50 mcg DAILY@0600 PO 04/30/21 06:00 05/01/21 05:33 Lidocaine HCl (Lidocaine 2% Visc Soln) 15 ml QID PRN SSP MOUTH IRRITATION 04/29/21 20:50 [place] Carbonate ([place] Carbonate) 300 mg BID PO 04/30/21 09:00 05/01/21 09:54 Magnesium Hydroxide (Milk Of Magnesia) 30 ml DAILYPRN PRN PO CONSTIPATION 04/29/21 01:30 Multivitamins (Theragram-M) 1 tab DAILY PO 04/30/21 09:00 05/01/21 09:54 Omeprazole (PriLOSEC) 40 mg DAILY PO 04/30/21 09:00 05/01/21 09:54 Quetiapine Fumarate (SEROquel) 100 mg QHS PO 04/30/21 21:00 04/30/21 21:49 Sertraline HCl (Zoloft) 100 mg QAM PO 04/30/21 09:00 05/01/21 09:54 Timolol Maleate (Timoptic 0.5% Ophth Paulina) 1 drop BID OU 04/29/21 21:00 05/01/21 09:54 Trazodone HCl (Desyrel) 50 mg QHSP PRN PO INSOMNIA 04/29/21 01:30 04/30/21 21:49 Allergies Coded Allergies: nitrofurantoin (Verified Allergy, Mild, 12/29/18) hydroxyzine (Verified Allergy, Unknown, 12/29/18) doxepin (Verified Adverse Reaction, Severe, SEIZURE, 05/19/19) bupropion (Verified Adverse Reaction, Intermediate, 'SPEEDS UP', 12/29/18) chlorpromazine (Verified Adverse Reaction, Intermediate, EPS, 12/29/18) trifluoperazine (Verified Adverse Reaction, Intermediate, EPS, 12/29/18) haloperidol (Verified Adverse Reaction, Unknown, 10/18/19) "grumpy" thioridazine (Verified Adverse Reaction, Unknown, EPS, 12/29/18) zolpidem (Verified Adverse Reaction, Unknown, 10/18/19) "feels strange" LASHANDA DEE MD May 01, 2021 17:58
[2021-05-01] MEDS: QUEtiapine FUMARATE 100 MG TAB PO SCH (20:55)
[2021-05-01] MEDS: LATANOPROST 0.005% OPHTH SOLN 2.5 ML OU SCH (20:55)
[2021-05-01] MEDS: amLODIPine 5 MG TAB PO SCH (20:56)
[2021-05-02] MEDS: LEVOTHYROXINE 50MCG TABLET (0.05MG) PO SCH (05:05)
[2021-05-02 06:15] VITALS: BP 127/62
--- NOTE | 2021-05-02 09:01 | HPEPDOC ---
[facility] Medical History & Physical Date of Admission Apr 28, 2021 Date of Service: May 02, 2021 History and Physical CHIEF COMPLAINT: Suicidal Ideation HISTORY OF PRESENT ILLNESS: 60-year-old female with past medical history including hypertension, obstructive sleep apnea requiring continuous positive airway pressure, hypothyroidism who lives in a transitional living facility was admitted to inpatient mental health unit for suicidal thoughts. She has had multiple [facility] admissions and visits. She notes that she is not compliant with her medications or her CPAP device. Currently she denies chest pain, headaches, nausea, vomiting, diarrhea, changes in vision. She was not clear regarding abdominal tenderness. PAST MEDICAL HISTORY: #HTN #KANU #hypothyroidism #RLE DVT - 07/2009 SOCIAL HISTORY: Denies alcohol abuse denies nicotine abuse denies illicit drug use. FAMILY HISTORY: Reviewed with patient, however patient is not clear regarding family medical history. States her father has , perhaps with some cardiac issues. States her mother is alive, unknown medical issues. ALLERGIES: Please see below. REVIEW OF SYSTEMS: Negative except as per HPI. HOME MEDICATIONS: Please see below. PHYSICAL EXAMINATION: Vital Signs: reviewed and within normal limits General: NAD, sitting comfortably in chair HEENT: NC/AT, EOMI Neck: supple, no masses Chest: lungs CTA B/L Heart: +S1S2, RRR Abd: soft, +BS, obese Ext: no edema Skin: no rashes MSK: full ROM at large joints Neuro: no gross focal deficits Psych: AAOx3 LABORATORY DATA: See below. MICROBIOLOGY: Please see below. A/P: 60 year old female admitted to [facility] for suicidal ideation, with PMHx including KANU/CPAP, HTN, hypothyroidism. #SI/psych - as per primary team #HTN - continue with amlodipine for now - it appears at home she was receiving HCTZ #KANU/CPAP - her home cpap is unavailable as per patient - continue with hospital cpap #hypothyroidism - continue with oral supplementation #abd tenderness? - +BS, passing gas, having bowel movements - if any further issues please re-consult Thank you for this consultation please reconsult as needed. Vital Signs Vital Signs Date Time Temp Pulse Resp B/P (MAP) Pulse Ox O2 Delivery O2 Flow Rate FiO2 05/02/21 06:15 98.2 61 18 127/62 (83) 96 Room Air Home Medications Scheduled Aspirin (Aspirin EC) 81 Mg Tablet., 81 MG PO DAILY Calcium Carbonate/Vitamin D3 (Calcium 600-Vit D3 400 Tablet) 1 Each Tablet, 1 TAB PO BID Ciclopirox Olamine (Ciclopirox) 15 Gm Cream..g., 1 DOSE EXT DAILY APPLY TO TOENAILS Cranberry (Cranberry) 400 Mg Capsule, 400 MG PO BID Docusate Sodium (Colace) 100 Mg Cap, 200 MG PO DAILY Fexofenadine HCl (Fexofenadine HCl) 180 Mg Tablet, 180 MG PO DAILY Hydrochlorothiazide (Hydrochlorothiazide) 12.5 Mg Tablet, 12.5 MG PO DAILY Hydroxychloroquine Sulfate (Hydroxychloroquine Sulfate) 200 Mg Tablet, 200 MG PO BID Latanoprost (Xalatan) 0.005% 2.5ML Drops, 1 DROP OU QHS Levothyroxine Sodium (Levoxyl) 50 Mcg Tab, 50 MCG PO DAILY [place] Carbonate ([place] Carbonate) 300 Mg Tab, 1,200 MG PO QHS Multivitamins (Thera M Plus Tablet) 1 Each Tablet, 1 TAB PO DAILY Omeprazole (Omeprazole) 40 Mg Cap, 40 MG PO DAILY Quetiapine Fumarate (Quetiapine Fumarate) 25 Mg Tablet, 25 MG PO BID 0800, 1400 Quetiapine Fumarate (Quetiapine Fumarate ER) 400 Mg Tab.er.24h, 400 MG PO QHS Sertraline HCl (Sertraline HCl) 50 Mg Tablet, 50 MG PO DAILY TAKES WITH 100MG FOR 150MG TOTAL Sertraline Hcl (Zoloft) 100 Mg Tablet, 100 MG PO DAILY TAKES WITH 50MG FOR 150MG TOTAL Timolol Maleate (Timolol Maleate) 0.5% 5ML Drop.daily, 1 DROP OU BID Scheduled PRN Ammonium Lactate (Ammonium Lactate) 12% Lotion, 1 DOSE TOP DAILY PRN for DRY SKIN APPLY TO FEET Lidocaine HCl (Lidocaine HCl Viscous) 15 Ml Solution, 15 ML SSP QID PRN for MOUTH IRRITATION Polyvinyl Alcohol (Artificial Tears) 1.4 % Paulina, 1 DROP OU QID PRN for DRY EYES Allergies Coded Allergies: nitrofurantoin (Verified Allergy, Mild, 12/29/18) hydroxyzine (Verified Allergy, Unknown, 12/29/18) doxepin (Verified Adverse Reaction, Severe, SEIZURE, 05/19/19) bupropion (Verified Adverse Reaction, Intermediate, 'SPEEDS UP', 12/29/18) chlorpromazine (Verified Adverse Reaction, Intermediate, EPS, 12/29/18) trifluoperazine (Verified Adverse Reaction, Intermediate, EPS, 12/29/18) haloperidol (Verified Adverse Reaction, Unknown, 10/18/19) "grumpy" thioridazine (Verified Adverse Reaction, Unknown, EPS, 12/29/18) zolpidem (Verified Adverse Reaction, Unknown, 10/18/19) "feels strange" A-FIB/CHADSVASC A-FIB History Current/History of A-Fib/PAF?: No AMINA CRUZ MD May 02, 2021 09:01
[2021-05-02] MEDS: HYDROXYCHLOROQUINE 200 MG TAB PO SCH ×2 (09:18→21:48)
[2021-05-02] MEDS: OMEPRAZOLE 20 MG CAP PO SCH (09:18)
[2021-05-02] MEDS: MULTIVITAMINS/MINERALS THERAP 1 TAB PO SCH (09:18)
[2021-05-02] MEDS: ASPIRIN 81MG ENTERIC TABLET PO SCH (09:18)
[2021-05-02] MEDS: SERTRALINE 100 MG TAB PO SCH (09:18)
[2021-05-02] MEDS: LITHIUM CARBONATE 300 MG CAP PO SCH (09:18)
[2021-05-02] MEDS: TIMOLOL MALEATE 0.5% OPHTH SOLN 5 ML OU SCH ×2 (09:18→21:47)
--- NOTE | 2021-05-02 10:00 | MHIPNPDOC ---
[facility] Progress Note Progress Note DATE OF SERVICE: 05/02/21 SUBJECTIVE: Patient is calm and cooperative. Reported that she has been doing well and denied any side effect of the medications. Reports she is not sleeping well, because of her problematic CPAP machine. OBJECTIVE: She is a 60-year-old female, living by herself in an apartment provided by transitional living services ([facility]). She was admitted because of suicidal thoughts. Her compliance with the medication is questionable. Patient reports periodically she took her medications. Her sleep and appetite are better; however, still she has some depressed mood. Her suicidal thoughts have resolved. Patient was somewhat irritable, spoke in his pressured speech. MENTAL STATUS EXAMINATION: She is a 60-year-old female, well groomed. Behavior is cooperative. Eye contact is somewhat evasive. There is some thought blocking. Mood is depressed. Affect is blunted. Speech rate, rhythm, volume are low. Rate is slow. Thought process is goal directed at times, tangential at times. Denied any auditory or visual hallucinations. Currently denies any suicidal thoughts. Her insight and judgment are limited. LABORATORY DATA: CBC within normal limits. Chemistry within normal limits. Toxicology was positive for benzodiazepine. CURRENT MEDICATIONS: - quetiapine 100 mg at night - sertraline 100 mg in the morning - lithium carbonate 300 mg twice daily ASSESSMENT: 1. Schizoaffective disorder, bipolar type. 2. Anxiety disorder, unspecified. 3. Sleep apnea. 4. Hypertension. PLAN: Continue current medication. Needs further stabilization, Increase lithium 300 mg in the morning and 600 mg at night Increase Seroquel 600 mg at bedtime Discontinue her trazodone as patient complains of side effects. ESTIMATED LENGTH OF STAY: 4-5 days. TIME SPENT: 25 minutes. Vital Signs Vital Signs Date Time Temp Pulse Resp B/P (MAP) Pulse Ox O2 Delivery O2 Flow Rate FiO2 05/02/21 06:15 98.2 61 18 127/62 (83) 96 Room Air Current Medications Current Medications Medications (Trade) Dose Ordered Sig/Suzanne Route PRN Reason Start Time Stop Time Status Last Admin Dose Admin Acetaminophen (Tylenol Tab) 650 mg Q6HP PRN PO HEADACHE or MILD DISCOMFORT 04/29/21 01:30 Al Hydrox/Mg Hydrox/Simethicone (Mylanta) 30 ml Q4HP PRN PO HEARTBURN/INDIGESTION 04/29/21 01:30 Amlodipine Besylate (Norvasc) 5 mg QHS PO 04/29/21 21:00 05/01/21 20:56 Artificial Tears (Akwa Tears) 1 drop QID PRN OU DRY EYES 04/29/21 21:00 Aspirin (Ecotrin) 81 mg DAILY PO 04/30/21 09:00 05/02/21 09:18 Docusate Sodium (Colace) 200 mg DAILYPRN PRN PO CONSTIPATION 04/29/21 20:25 05/01/21 16:29 Home Med (Home Med List Complete!) ASDIRECTED XX 04/29/21 01:20 04/29/21 01:38 DC Hydroxychloroquine Sulfate (Plaquenil) 200 mg BID PO 04/29/21 21:00 05/02/21 09:18 Lactic Acid (Lac-Hydrin 12% Lotion) 1 dose DAILY PRN TOP DRY SKIN 04/29/21 20:50 Latanoprost (Xalatan 0.005% Op Soln) 1 drop QHS OU 04/29/21 21:00 05/01/21 20:55 Levothyroxine Sodium (Synthroid) 50 mcg DAILY@0600 PO 04/30/21 06:00 05/02/21 05:05 Lidocaine HCl (Lidocaine 2% Visc Soln) 15 ml QID PRN SSP MOUTH IRRITATION 04/29/21 20:50 [place] Carbonate ([place] Carbonate) 300 mg BID PO 04/30/21 09:00 05/02/21 09:34 DC 05/02/21 09:18 [place] Carbonate ([place] Carbonate) 300 mg QAM PO 05/03/21 09:00 [place] Carbonate ([place] Carbonate) 600 mg QHS PO 05/02/21 21:00 Magnesium Hydroxide (Milk Of Magnesia) 30 ml DAILYPRN PRN PO CONSTIPATION 04/29/21 01:30 Multivitamins (Theragram-M) 1 tab DAILY PO 04/30/21 09:00 05/02/21 09:18 Omeprazole (PriLOSEC) 40 mg DAILY PO 04/30/21 09:00 05/02/21 09:18 Quetiapine Fumarate (SEROquel) 100 mg QHS PO 04/30/21 21:00 05/02/21 09:37 DC 05/01/21 20:55 Quetiapine Fumarate (SEROquel) 200 mg QHS PO 05/02/21 21:00 Sertraline HCl (Zoloft) 100 mg QAM PO 04/30/21 09:00 05/02/21 09:18 Timolol Maleate (Timoptic 0.5% Ophth Paulina) 1 drop BID OU 04/29/21 21:00 05/02/21 09:18 Trazodone HCl (Desyrel) 50 mg QHSP PRN PO INSOMNIA 04/29/21 01:30 05/02/21 09:34 DC 04/30/21 21:49 Allergies Coded Allergies: nitrofurantoin (Verified Allergy, Mild, 12/29/18) hydroxyzine (Verified Allergy, Unknown, 12/29/18) doxepin (Verified Adverse Reaction, Severe, SEIZURE, 05/19/19) bupropion (Verified Adverse Reaction, Intermediate, 'SPEEDS UP', 12/29/18) chlorpromazine (Verified Adverse Reaction, Intermediate, EPS, 12/29/18) trifluoperazine (Verified Adverse Reaction, Intermediate, EPS, 12/29/18) haloperidol (Verified Adverse Reaction, Unknown, 10/18/19) "grumpy" thioridazine (Verified Adverse Reaction, Unknown, EPS, 12/29/18) zolpidem (Verified Adverse Reaction, Unknown, 10/18/19) "feels strange" LASHANDA DEE MD May 02, 2021 10:00
[2021-05-02 16:41] VITALS: BP 142/61
[2021-05-02] MEDS: LATANOPROST 0.005% OPHTH SOLN 2.5 ML OU SCH (21:47)
[2021-05-02] MEDS: LITHIUM CARBONATE 600MG CAP PO SCH (21:48)
[2021-05-02] MEDS: QUEtiapine FUMARATE 200 MG TAB PO SCH (21:48)
[2021-05-02] MEDS: amLODIPine 5 MG TAB PO SCH (21:50)
[2021-05-03] MEDS: LEVOTHYROXINE 50MCG TABLET (0.05MG) PO SCH (05:42)
[2021-05-03 06:18] VITALS: BP 148/70
[2021-05-03] MEDS: MULTIVITAMINS/MINERALS THERAP 1 TAB PO SCH (09:35)
[2021-05-03] MEDS: LITHIUM CARBONATE 300 MG CAP PO SCH (09:35)
[2021-05-03] MEDS: SERTRALINE 100 MG TAB PO SCH (09:35)
[2021-05-03] MEDS: ASPIRIN 81MG ENTERIC TABLET PO SCH (09:36)
[2021-05-03] MEDS: OMEPRAZOLE 20 MG CAP PO SCH (09:36)
[2021-05-03] MEDS: TIMOLOL MALEATE 0.5% OPHTH SOLN 5 ML OU SCH ×2 (09:36→21:42)
--- NOTE | 2021-05-03 11:25 | MHIPNPDOC ---
[facility] Progress Note Progress Note DATE OF SERVICE: 05/03/21 SUBJECTIVE: Patient is calm and cooperative. Reported that she has been doing well and denied any side effect of the medications. Reports she is not sleeping well, because of her problematic CPAP machine. OBJECTIVE: She is a 60-year-old female, living by herself in an apartment provided by transitional living services ([facility]). She was admitted because of suicidal thoughts. Her compliance with the medication is questionable. Patient reports periodically she took her medications. Her sleep and appetite are better; however, still she has some depressed mood. Her suicidal thoughts have resolved. Patient was somewhat irritable, spoke in his pressured speech. Denied any suicidal thoughts or depressed mood MENTAL STATUS EXAMINATION: She is a 60-year-old female, well groomed. Behavior is cooperative. Eye contact is somewhat evasive. There is some thought blocking. Mood is depressed. Affect is blunted. Speech rate, rhythm, volume are low. Rate is slow. Thought process is goal directed at times, tangential at times. Denied any auditory or visual hallucinations. Currently denies any suicidal thoughts. Her insight and judgment are limited. LABORATORY DATA: CBC within normal limits. Chemistry within normal limits. Toxicology was positive for benzodiazepine. CURRENT MEDICATIONS: - quetiapine 100 mg at night - sertraline 100 mg in the morning - lithium carbonate 300 mg twice daily ASSESSMENT: 1. Schizoaffective disorder, bipolar type. 2. Anxiety disorder, unspecified. 3. Sleep apnea. 4. Hypertension. Patient currently does not have any suicidal thoughts, is she is cooperative but still needs some stabilizations as patient is somewhat irritable and speaks in pressured speech. PLAN: Continue current medication. Needs further stabilization, Increase lithium 300 mg in the morning and 600 mg at night Increase Seroquel 600 mg at bedtime Discontinue her trazodone as patient complains of side effects. ESTIMATED LENGTH OF STAY: 4-5 days. TIME SPENT: 25 minutes. Vital Signs Vital Signs Date Time Temp Pulse Resp B/P (MAP) Pulse Ox O2 Delivery O2 Flow Rate FiO2 05/03/21 06:18 97.7 72 20 148/70 (96) 95 Room Air Current Medications Current Medications Medications (Trade) Dose Ordered Sig/Suzanne Route PRN Reason Start Time Stop Time Status Last Admin Dose Admin Acetaminophen (Tylenol Tab) 650 mg Q6HP PRN PO HEADACHE or MILD DISCOMFORT 04/29/21 01:30 Al Hydrox/Mg Hydrox/Simethicone (Mylanta) 30 ml Q4HP PRN PO HEARTBURN/INDIGESTION 04/29/21 01:30 Amlodipine Besylate (Norvasc) 5 mg QHS PO 04/29/21 21:00 05/02/21 21:50 Artificial Tears (Akwa Tears) 1 drop QID PRN OU DRY EYES 04/29/21 21:00 Aspirin (Ecotrin) 81 mg DAILY PO 04/30/21 09:00 05/03/21 09:36 Docusate Sodium (Colace) 200 mg DAILYPRN PRN PO CONSTIPATION 04/29/21 20:25 05/01/21 16:29 Home Med (Home Med List Complete!) ASDIRECTED XX 04/29/21 01:20 04/29/21 01:38 DC Hydroxychloroquine Sulfate (Plaquenil) 200 mg BID PO 04/29/21 21:00 05/02/21 21:48 Lactic Acid (Lac-Hydrin 12% Lotion) 1 dose DAILY PRN TOP DRY SKIN 04/29/21 20:50 Latanoprost (Xalatan 0.005% Op Soln) 1 drop QHS OU 04/29/21 21:00 05/02/21 21:47 Levothyroxine Sodium (Synthroid) 50 mcg DAILY@0600 PO 04/30/21 06:00 05/03/21 05:42 Lidocaine HCl (Lidocaine 2% Visc Soln) 15 ml QID PRN SSP MOUTH IRRITATION 04/29/21 20:50 [place] Carbonate ([place] Carbonate) 300 mg BID PO 04/30/21 09:00 05/02/21 09:34 DC 05/02/21 09:18 [place] Carbonate ([place] Carbonate) 300 mg QAM PO 05/03/21 09:00 05/03/21 09:35 [place] Carbonate ([place] Carbonate) 600 mg QHS PO 05/02/21 21:00 05/02/21 21:48 Magnesium Hydroxide (Milk Of Magnesia) 30 ml DAILYPRN PRN PO CONSTIPATION 04/29/21 01:30 Multivitamins (Theragram-M) 1 tab DAILY PO 04/30/21 09:00 05/03/21 09:35 Omeprazole (PriLOSEC) 40 mg DAILY PO 04/30/21 09:00 05/03/21 09:36 Quetiapine Fumarate (SEROquel) 100 mg QHS PO 04/30/21 21:00 05/02/21 09:37 DC 05/01/21 20:55 Quetiapine Fumarate (SEROquel) 200 mg QHS PO 05/02/21 21:00 05/02/21 21:48 Sertraline HCl (Zoloft) 100 mg QAM PO 04/30/21 09:00 05/03/21 09:35 Timolol Maleate (Timoptic 0.5% Ophth Paulina) 1 drop BID OU 04/29/21 21:00 05/03/21 09:36 Trazodone HCl (Desyrel) 50 mg QHSP PRN PO INSOMNIA 04/29/21 01:30 05/02/21 09:34 DC 04/30/21 21:49 Allergies Coded Allergies: nitrofurantoin (Verified Allergy, Mild, 12/29/18) hydroxyzine (Verified Allergy, Unknown, 12/29/18) doxepin (Verified Adverse Reaction, Severe, SEIZURE, 05/19/19) bupropion (Verified Adverse Reaction, Intermediate, 'SPEEDS UP', 12/29/18) chlorpromazine (Verified Adverse Reaction, Intermediate, EPS, 12/29/18) trifluoperazine (Verified Adverse Reaction, Intermediate, EPS, 12/29/18) haloperidol (Verified Adverse Reaction, Unknown, 10/18/19) "grumpy" thioridazine (Verified Adverse Reaction, Unknown, EPS, 12/29/18) zolpidem (Verified Adverse Reaction, Unknown, 10/18/19) "feels strange" LASHANDA DEE MD May 03, 2021 11:25
[2021-05-03] MEDS: HYDROXYCHLOROQUINE 200 MG TAB PO SCH ×2 (14:51→21:41)
[2021-05-03 17:14] VITALS: BP 142/82
[2021-05-03] MEDS: LITHIUM CARBONATE 600MG CAP PO SCH (21:41)
[2021-05-03] MEDS: QUEtiapine FUMARATE 200 MG TAB PO SCH (21:42)
[2021-05-03] MEDS: LATANOPROST 0.005% OPHTH SOLN 2.5 ML OU SCH (21:42)
[2021-05-03] MEDS: amLODIPine 5 MG TAB PO SCH (21:51)
[2021-05-04] MEDS: LEVOTHYROXINE 50MCG TABLET (0.05MG) PO SCH (05:45)
[2021-05-04 07:05] VITALS: BP 126/59
[2021-05-04] MEDS: SERTRALINE 100 MG TAB PO SCH (10:53)
[2021-05-04] MEDS: TIMOLOL MALEATE 0.5% OPHTH SOLN 5 ML OU SCH ×2 (10:53→20:58)
[2021-05-04] MEDS: LITHIUM CARBONATE 300 MG CAP PO SCH (10:54)
[2021-05-04] MEDS: HYDROXYCHLOROQUINE 200 MG TAB PO SCH ×2 (10:54→20:58)
[2021-05-04] MEDS: ASPIRIN 81MG ENTERIC TABLET PO SCH (10:54)
[2021-05-04] MEDS: OMEPRAZOLE 20 MG CAP PO SCH (10:54)
[2021-05-04] MEDS: MULTIVITAMINS/MINERALS THERAP 1 TAB PO SCH (10:54)
--- NOTE | 2021-05-04 13:05 | MHIPNPDOC ---
[facility] Progress Note Progress Note DATE OF SERVICE: 05/04/21 HISTORY: Patient is a 60-year-old female, single, living by herself in an apartment provided by transitional living services ([facility]). Was admitted because of suicidal thoughts. She has a long history of mental illness. She started seeing psychiatrist from age 11. She has multiple history of multiple psychiatric hospitalizations. Was diagnosed with schizoaffective disorder. Since then, she reports her compliance with medication is mixed. Sometimes she is noncompliant. [facility]. 60- year old female with a past medical history of schizoaffective disorder, hypertension, hypothyroidism, sleep apnea, GERD reported coming to the hospital for suicidal ideations. She reports having " bad thoughts" and was in regrets. She reports lately she has not been taking her medications were been compliant with her CPAP. VITAL SIGNS: See below. CURRENT MEDICATIONS: See below. MENTAL STATUS EXAMINATION: Patient is a 60-year-old female, single, living by herself in an apartment provided by transitional living services ([facility]). Was admitted because of suicidal thoughts. Speech: Is fluid, conversant, normal rate, tone and volume Language skills are intact Thought processes including: moderately blocked, does not finish her thoughts Thought content: reports continued depression and anxiety. Denies suicidal/homicidal ideation, planning or intent. Abstract reasoning, and computation: fair Description of associations: denies, none observed Description of abnormal or psychotic thoughts: denies, none observed. Judgment: Poor Insight: Poor Orientation: alert and oriented to person, place, time and situation Recent and remote memory: intact Attention span and concentration: Fair Language: expansive Fund of knowledge: Below average Mood: Labile Mood Affect: Irritable and Labile DIAGNOSES: 1. Schizoaffective disorder, bipolar type. 2. Anxiety disorder, unspecified. 3. Sleep apnea. 4. Hypertension. ASSESSMENT: Patient presents with numerous complaints about her inability to sleep, poor appetite, and states that she wants to go home. "It was all stupid, I do not completely do my best. "Throughout interview patient was quite negative, unable to report what she needs to work on in order for her discharge. She denies continued depression but is observed to be extremely labile and irritable. When discussing her negative thinking habits patient becomes very irritable and moderately agitated stands up and began screaming at the provider, "I am done talking to you!" Patient appears to be quite impulsive, continues to have childlike behaviors and unable to identify what she needs to improve in order for her discharge MANAGEMENT PLAN: Continue all medications and supportive therapy. Possible discharge at the end of the week TIME SPENT: 25 minutes. Vital Signs Vital Signs Date Time Temp Pulse Resp B/P (MAP) Pulse Ox O2 Delivery O2 Flow Rate FiO2 05/04/21 09:03 Room Air 05/04/21 07:05 97.4 66 20 126/59 (81) 98 Current Medications Current Medications Medications (Trade) Dose Ordered Sig/Suzanne Route PRN Reason Start Time Stop Time Status Last Admin Dose Admin Acetaminophen (Tylenol Tab) 650 mg Q6HP PRN PO HEADACHE or MILD DISCOMFORT 04/29/21 01:30 Al Hydrox/Mg Hydrox/Simethicone (Mylanta) 30 ml Q4HP PRN PO HEARTBURN/INDIGESTION 04/29/21 01:30 Amlodipine Besylate (Norvasc) 5 mg QHS PO 04/29/21 21:00 05/03/21 21:51 Artificial Tears (Akwa Tears) 1 drop QID PRN OU DRY EYES 04/29/21 21:00 Aspirin (Ecotrin) 81 mg DAILY PO 04/30/21 09:00 05/04/21 10:54 Docusate Sodium (Colace) 200 mg DAILYPRN PRN PO CONSTIPATION 04/29/21 20:25 05/01/21 16:29 Home Med (Home Med List Complete!) ASDIRECTED XX 04/29/21 01:20 04/29/21 01:38 DC Hydroxychloroquine Sulfate (Plaquenil) 200 mg BID PO 04/29/21 21:00 05/04/21 10:54 Lactic Acid (Lac-Hydrin 12% Lotion) 1 dose DAILY PRN TOP DRY SKIN 04/29/21 20:50 Latanoprost (Xalatan 0.005% Op Soln) 1 drop QHS OU 04/29/21 21:00 05/03/21 21:42 Levothyroxine Sodium (Synthroid) 50 mcg DAILY@0600 PO 04/30/21 06:00 05/04/21 05:45 Lidocaine HCl (Lidocaine 2% Visc Soln) 15 ml QID PRN SSP MOUTH IRRITATION 04/29/21 20:50 [place] Carbonate ([place] Carbonate) 300 mg BID PO 04/30/21 09:00 05/02/21 09:34 DC 05/02/21 09:18 [place] Carbonate ([place] Carbonate) 300 mg QAM PO 05/03/21 09:00 05/04/21 10:54 [place] Carbonate ([place] Carbonate) 600 mg QHS PO 05/02/21 21:00 05/03/21 21:41 Magnesium Hydroxide (Milk Of Magnesia) 30 ml DAILYPRN PRN PO CONSTIPATION 04/29/21 01:30 Multivitamins (Theragram-M) 1 tab DAILY PO 04/30/21 09:00 05/04/21 10:54 Omeprazole (PriLOSEC) 40 mg DAILY PO 04/30/21 09:00 05/04/21 10:54 Quetiapine Fumarate (SEROquel) 100 mg QHS PO 04/30/21 21:00 05/02/21 09:37 DC 05/01/21 20:55 Quetiapine Fumarate (SEROquel) 200 mg QHS PO 05/02/21 21:00 05/03/21 21:42 Sertraline HCl (Zoloft) 100 mg QAM PO 04/30/21 09:00 05/04/21 10:53 Timolol Maleate (Timoptic 0.5% Ophth Paulina) 1 drop BID OU 04/29/21 21:00 05/04/21 10:53 Trazodone HCl (Desyrel) 50 mg QHSP PRN PO INSOMNIA 04/29/21 01:30 05/02/21 09:34 DC 04/30/21 21:49 Allergies Coded Allergies: nitrofurantoin (Verified Allergy, Mild, 12/29/18) hydroxyzine (Verified Allergy, Unknown, 12/29/18) doxepin (Verified Adverse Reaction, Severe, SEIZURE, 05/19/19) bupropion (Verified Adverse Reaction, Intermediate, 'SPEEDS UP', 12/29/18) chlorpromazine (Verified Adverse Reaction, Intermediate, EPS, 12/29/18) trifluoperazine (Verified Adverse Reaction, Intermediate, EPS, 12/29/18) haloperidol (Verified Adverse Reaction, Unknown, 10/18/19) "grumpy" thioridazine (Verified Adverse Reaction, Unknown, EPS, 12/29/18) zolpidem (Verified Adverse Reaction, Unknown, 10/18/19) "feels strange" KULWINDER LIN NP May 04, 2021 13:05
[2021-05-04] MEDS: QUEtiapine FUMARATE 50MG TAB PO SCH (13:42)
[2021-05-04] MEDS: LATANOPROST 0.005% OPHTH SOLN 2.5 ML OU SCH (20:58)
[2021-05-04] MEDS: QUEtiapine FUMARATE 200 MG TAB PO SCH (20:58)
[2021-05-04] MEDS: amLODIPine 5 MG TAB PO SCH (20:59)
[2021-05-04] MEDS: LITHIUM CARBONATE 600MG CAP PO SCH (20:59)
[2021-05-05] MEDS: LEVOTHYROXINE 50MCG TABLET (0.05MG) PO SCH (06:23)
[2021-05-05 06:50] VITALS: BP 149/92
[2021-05-05] MEDS: QUEtiapine FUMARATE 50MG TAB PO SCH (10:21)
[2021-05-05] MEDS: SERTRALINE 100 MG TAB PO SCH (10:21)
[2021-05-05] MEDS: TIMOLOL MALEATE 0.5% OPHTH SOLN 5 ML OU SCH ×2 (10:21→21:24)
[2021-05-05] MEDS: ASPIRIN 81MG ENTERIC TABLET PO SCH (10:21)
[2021-05-05] MEDS: OMEPRAZOLE 20 MG CAP PO SCH (10:21)
[2021-05-05] MEDS: HYDROXYCHLOROQUINE 200 MG TAB PO SCH ×2 (10:21→21:26)
[2021-05-05] MEDS: MULTIVITAMINS/MINERALS THERAP 1 TAB PO SCH (10:21)
[2021-05-05] MEDS: LITHIUM CARBONATE 300 MG CAP PO SCH (11:33)
--- NOTE | 2021-05-05 13:47 | MHIPNPDOC ---
[facility] Progress Note Progress Note DATE OF SERVICE: 05/05/21 HISTORY: Patient is a 60-year-old female, single, living by herself in an apartment provided by transitional living services ([facility]). Was admitted because of suicidal thoughts. She has a long history of mental illness. She started seeing psychiatrist from age 11. She has multiple history of multiple psychiatric hospitalizations. Was diagnosed with schizoaffective disorder. Since then, she reports her compliance with medication is mixed. Sometimes she is noncompliant. [facility] is [facility]. 60- year old female with a past medical history of schizoaffective disorder, hypertension, hypothyroidism, sleep apnea, GERD reported coming to the hospital for suicidal ideations. She reports having " bad thoughts" and was in regrets. She reports lately she has not been taking her medications were been compliant with her CPAP. VITAL SIGNS: See below. CURRENT MEDICATIONS: See below. MENTAL STATUS EXAMINATION: Patient is a 60-year-old female, single, living by herself in an apartment provided by transitional living services ([facility]). Was admitted because of suicidal thoughts. Speech: Is fluid, conversant, normal rate, tone and volume Language skills are intact Thought processes including: moderately blocked, coherent most times Thought content: reports continued depression and anxiety. Denies suicidal/homicidal ideation, planning or intent. Abstract reasoning, and computation: fair Description of associations: denies, none observed Description of abnormal or psychotic thoughts: denies, none observed. Judgment: Poor Insight: Poor Orientation: alert and oriented to person, place, time and situation Recent and remote memory: unable to determine as she is blocked and does not finish her sentences Attention span and concentration: poor Language: expansive Fund of knowledge: Below average Mood: Labile Mood Affect: Irritable and Labile DIAGNOSES: 1. Schizoaffective disorder, bipolar type. 2. Anxiety disorder, unspecified. 3. Sleep apnea. 4. Hypertension. ASSESSMENT: Patient presents irritable and labile in the interview today. She is lying in her bed, appears depressed but unable to determine the measure of this as she refuses to answer questions. States, "I don't really want to talk to anyone, no one listens to me." When asked what she is requesting or wanting that no one is listening to her, she states, "I don't know. I don't want to repeat myself. I tell people and they don't listen." Further questioning results in her being even more irritable to being hostile. She states, "I don't want to talk to you!, I am not getting anywhere with you!" Patient appears to be labile and not stable according to her mother. Mother reports that her mood became very irritable, agitate and hostile over the past few months. MANAGEMENT PLAN: Continue all medications and supportive therapy. Discharge undetermined. TIME SPENT: 25 minutes. Vital Signs Vital Signs Date Time Temp Pulse Resp B/P (MAP) Pulse Ox O2 Delivery O2 Flow Rate FiO2 05/05/21 06:50 97.6 72 20 149/92 (111) 97 Room Air Current Medications Current Medications Medications (Trade) Dose Ordered Sig/Suzanne Route PRN Reason Start Time Stop Time Status Last Admin Dose Admin Acetaminophen (Tylenol Tab) 650 mg Q6HP PRN PO HEADACHE or MILD DISCOMFORT 04/29/21 01:30 Al Hydrox/Mg Hydrox/Simethicone (Mylanta) 30 ml Q4HP PRN PO HEARTBURN/INDIGESTION 04/29/21 01:30 Amlodipine Besylate (Norvasc) 5 mg QHS PO 04/29/21 21:00 05/04/21 20:59 Artificial Tears (Akwa Tears) 1 drop QID PRN OU DRY EYES 04/29/21 21:00 Aspirin (Ecotrin) 81 mg DAILY PO 04/30/21 09:00 05/05/21 10:21 Docusate Sodium (Colace) 200 mg DAILYPRN PRN PO CONSTIPATION 04/29/21 20:25 05/01/21 16:29 Home Med (Home Med List Complete!) ASDIRECTED XX 04/29/21 01:20 04/29/21 01:38 DC Hydroxychloroquine Sulfate (Plaquenil) 200 mg BID PO 04/29/21 21:00 05/05/21 10:21 Lactic Acid (Lac-Hydrin 12% Lotion) 1 dose DAILY PRN TOP DRY SKIN 04/29/21 20:50 Latanoprost (Xalatan 0.005% Op Soln) 1 drop QHS OU 04/29/21 21:00 05/04/21 20:58 Levothyroxine Sodium (Synthroid) 50 mcg DAILY@0600 PO 04/30/21 06:00 05/05/21 06:23 Lidocaine HCl (Lidocaine 2% Visc Soln) 15 ml QID PRN SSP MOUTH IRRITATION 04/29/21 20:50 [place] Carbonate ([place] Carbonate) 300 mg BID PO 04/30/21 09:00 05/02/21 09:34 DC 05/02/21 09:18 [place] Carbonate ([place] Carbonate) 300 mg QAM PO 05/03/21 09:00 05/05/21 11:33 [place] Carbonate ([place] Carbonate) 600 mg QHS PO 05/02/21 21:00 05/04/21 20:59 Magnesium Hydroxide (Milk Of Magnesia) 30 ml DAILYPRN PRN PO CONSTIPATION 04/29/21 01:30 Multivitamins (Theragram-M) 1 tab DAILY PO 04/30/21 09:00 05/05/21 10:21 Omeprazole (PriLOSEC) 40 mg DAILY PO 04/30/21 09:00 05/05/21 10:21 Quetiapine Fumarate (SEROquel) 50 mg QAM PO 05/04/21 09:00 05/05/21 10:21 Quetiapine Fumarate (SEROquel) 100 mg QHS PO 04/30/21 21:00 05/02/21 09:37 DC 05/01/21 20:55 Quetiapine Fumarate (SEROquel) 200 mg QHS PO 05/02/21 21:00 05/04/21 20:58 Sertraline HCl (Zoloft) 100 mg QAM PO 04/30/21 09:00 05/05/21 10:21 Timolol Maleate (Timoptic 0.5% Ophth Paulina) 1 drop BID OU 04/29/21 21:00 05/05/21 10:21 Trazodone HCl (Desyrel) 50 mg QHSP PRN PO INSOMNIA 04/29/21 01:30 05/02/21 09:34 DC 04/30/21 21:49 Allergies Coded Allergies: nitrofurantoin (Verified Allergy, Mild, 12/29/18) hydroxyzine (Verified Allergy, Unknown, 12/29/18) doxepin (Verified Adverse Reaction, Severe, SEIZURE, 05/19/19) bupropion (Verified Adverse Reaction, Intermediate, 'SPEEDS UP', 12/29/18) chlorpromazine (Verified Adverse Reaction, Intermediate, EPS, 12/29/18) trifluoperazine (Verified Adverse Reaction, Intermediate, EPS, 12/29/18) haloperidol (Verified Adverse Reaction, Unknown, 10/18/19) "grumpy" thioridazine (Verified Adverse Reaction, Unknown, EPS, 12/29/18) zolpidem (Verified Adverse Reaction, Unknown, 10/18/19) "feels strange" KULWINDER LIN JOB PLACEMENT COUNSELOR May 05, 2021 13:47
[2021-05-05] MEDS: LATANOPROST 0.005% OPHTH SOLN 2.5 ML OU SCH (21:26)
[2021-05-05] MEDS: QUEtiapine FUMARATE 200 MG TAB PO SCH (21:26)
[2021-05-05] MEDS: LITHIUM CARBONATE 600MG CAP PO SCH (21:26)
[2021-05-05] MEDS: amLODIPine 5 MG TAB PO SCH (21:26)
[2021-05-06] MEDS: LEVOTHYROXINE 50MCG TABLET (0.05MG) PO SCH (05:49)
[2021-05-06] MEDS: OMEPRAZOLE 20 MG CAP PO SCH (10:02)
[2021-05-06] MEDS: LITHIUM CARBONATE 300 MG CAP PO SCH (10:02)
[2021-05-06] MEDS: MULTIVITAMINS/MINERALS THERAP 1 TAB PO SCH (10:02)
[2021-05-06] MEDS: HYDROXYCHLOROQUINE 200 MG TAB PO SCH ×2 (10:02→20:57)
[2021-05-06] MEDS: QUEtiapine FUMARATE 50MG TAB PO SCH (10:02)
[2021-05-06] MEDS: SERTRALINE 100 MG TAB PO SCH (10:02)
[2021-05-06] MEDS: ASPIRIN 81MG ENTERIC TABLET PO SCH (10:02)
[2021-05-06] MEDS: TIMOLOL MALEATE 0.5% OPHTH SOLN 5 ML OU SCH ×2 (10:03→20:54)
--- NOTE | 2021-05-06 12:57 | MHIPNPDOC ---
[facility] Progress Note Progress Note DATE OF SERVICE: 05/06/21 HISTORY: Patient is a 60-year-old female, single, living by herself in an apartment provided by transitional living services ([facility]). Was admitted because of suicidal thoughts. She has a long history of mental illness. She started seeing psychiatrist from age 11. She has multiple history of multiple psychiatric hospitalizations. Was diagnosed with schizoaffective disorder. Since then, she reports her compliance with medication is mixed. Sometimes she is noncompliant. [facility]. 60- year old female with a past medical history of schizoaffective disorder, hypertension, hypothyroidism, sleep apnea, GERD reported coming to the hospital for suicidal ideations. She reports having " bad thoughts" and was in regrets. She reports lately she has not been taking her medications were been compliant with her CPAP. VITAL SIGNS: See below. CURRENT MEDICATIONS: See below. MENTAL STATUS EXAMINATION: Patient is a 60-year-old female, single, living by herself in an apartment provided by transitional living services ([facility]). Was admitted because of suicidal thoughts. Speech: Is delayed, normal rate, tone and volume Language skills are intact Thought processes including: moderately blocked, coherent most times Thought content: reports continued depression and anxiety. Denies suicidal/homicidal ideation, planning or intent. Abstract reasoning, and computation: fair Description of associations: denies, none observed Description of abnormal or psychotic thoughts: denies, none observed. Judgment: Poor Insight: Poor Orientation: alert and oriented to person, place, time and situation Recent and remote memory: unable to determine as she is blocked and does not finish her sentences Attention span and concentration: poor Language: expansive Fund of knowledge: Below average Mood: Labile Mood Affect: Irritable and Labile DIAGNOSES: 1. Schizoaffective disorder, bipolar type. 2. Anxiety disorder, unspecified. 3. Sleep apnea. 4. Hypertension. ASSESSMENT: Patient was found asleep in bed wearing her CPAP, agreeable to interview. Presents irritable and labile in the interview. When asked what brought her to the ER the patient stated "suicidal thoughts" she thought about "cutting herself" in her apartment. She called the mobile crisis unit and made suicidal statements. Patient stated that her mother "doesn't think her being her will help." The relationship between her and her mother is strained. Patient stated "We fight and yell about everything." When asked why they fight she stated " I fight with everyone, I don't want to talk, I feel stupid." Patient appeared depressed, when asked if she wants to go home she stated, "I ain't getting better in here". She does not wish to go back to her apartment provided by transitional living services ([facility]) stating "it's not good for my mental health, people are mean there, all they do is gossip." Patient is paranoid. Patient to be discharged next week as she reports she is not feeling any better, she is indecisive stating "I don't want to go back to where I live". She has no other housing plans at this time. Patient appears to be more stable than when she arrived. Patient is not exhibiting any psychotic symptoms. [place] level is 0.58, patient was not compliant with her medication for a reported year. MANAGEMENT PLAN: Continue all medications and supportive therapy. Discharge early next week. TIME SPENT: 25 minutes. Vital Signs Vital Signs Date Time Temp Pulse Resp B/P (MAP) Pulse Ox O2 Delivery O2 Flow Rate FiO2 05/05/21 21:26 72 154/77 05/05/21 06:50 97.6 20 97 Room Air Laboratory Data 24H Labs Laboratory Tests 2 05/06/21 10:23: [place] Level 0.56L Current Medications Current Medications Medications (Trade) Dose Ordered Sig/Suzanne Route PRN Reason Start Time Stop Time Status Last Admin Dose Admin Acetaminophen (Tylenol Tab) 650 mg Q6HP PRN PO HEADACHE or MILD DISCOMFORT 04/29/21 01:30 Al Hydrox/Mg Hydrox/Simethicone (Mylanta) 30 ml Q4HP PRN PO HEARTBURN/INDIGESTION 04/29/21 01:30 Amlodipine Besylate (Norvasc) 5 mg QHS PO 04/29/21 21:00 05/05/21 21:26 Artificial Tears (Akwa Tears) 1 drop QID PRN OU DRY EYES 04/29/21 21:00 Aspirin (Ecotrin) 81 mg DAILY PO 04/30/21 09:00 05/06/21 10:02 Docusate Sodium (Colace) 200 mg DAILYPRN PRN PO CONSTIPATION 04/29/21 20:25 05/01/21 16:29 Home Med (Home Med List Complete!) ASDIRECTED XX 04/29/21 01:20 04/29/21 01:38 DC Hydroxychloroquine Sulfate (Plaquenil) 200 mg BID PO 04/29/21 21:00 05/06/21 10:02 Lactic Acid (Lac-Hydrin 12% Lotion) 1 dose DAILY PRN TOP DRY SKIN 04/29/21 20:50 Latanoprost (Xalatan 0.005% Op Soln) 1 drop QHS OU 04/29/21 21:00 05/05/21 21:26 Levothyroxine Sodium (Synthroid) 50 mcg DAILY@0600 PO 04/30/21 06:00 05/06/21 05:49 Lidocaine HCl (Lidocaine 2% Visc Soln) 15 ml QID PRN SSP MOUTH IRRITATION 04/29/21 20:50 [place] Carbonate ([place] Carbonate) 300 mg BID PO 04/30/21 09:00 05/02/21 09:34 DC 05/02/21 09:18 [place] Carbonate ([place] Carbonate) 300 mg QAM PO 05/03/21 09:00 05/06/21 10:02 [place] Carbonate ([place] Carbonate) 600 mg QHS PO 05/02/21 21:00 05/05/21 21:26 Magnesium Hydroxide (Milk Of Magnesia) 30 ml DAILYPRN PRN PO CONSTIPATION 04/29/21 01:30 Multivitamins (Theragram-M) 1 tab DAILY PO 04/30/21 09:00 05/06/21 10:02 Omeprazole (PriLOSEC) 40 mg DAILY PO 04/30/21 09:00 05/06/21 10:02 Quetiapine Fumarate (SEROquel) 50 mg QAM PO 05/04/21 09:00 05/06/21 10:02 Quetiapine Fumarate (SEROquel) 100 mg QHS PO 04/30/21 21:00 05/02/21 09:37 DC 05/01/21 20:55 Quetiapine Fumarate (SEROquel) 200 mg QHS PO 05/02/21 21:00 05/05/21 21:26 Sertraline HCl (Zoloft) 100 mg QAM PO 04/30/21 09:00 05/06/21 10:02 Timolol Maleate (Timoptic 0.5% Ophth Paulina) 1 drop BID OU 04/29/21 21:00 05/06/21 10:03 Trazodone HCl (Desyrel) 50 mg QHSP PRN PO INSOMNIA 04/29/21 01:30 05/02/21 09:34 DC 04/30/21 21:49 Allergies Coded Allergies: nitrofurantoin (Verified Allergy, Mild, 12/29/18) hydroxyzine (Verified Allergy, Unknown, 12/29/18) doxepin (Verified Adverse Reaction, Severe, SEIZURE, 05/19/19) bupropion (Verified Adverse Reaction, Intermediate, 'SPEEDS UP', 12/29/18) chlorpromazine (Verified Adverse Reaction, Intermediate, EPS, 12/29/18) trifluoperazine (Verified Adverse Reaction, Intermediate, EPS, 12/29/18) haloperidol (Verified Adverse Reaction, Unknown, 10/18/19) "grumpy" thioridazine (Verified Adverse Reaction, Unknown, EPS, 12/29/18) zolpidem (Verified Adverse Reaction, Unknown, 10/18/19) "feels strange" KULWINDER LIN PUBLIC ACCOUNTANT May 06, 2021 12:57
[2021-05-06 17:46] VITALS: BP 139/63
[2021-05-06] MEDS: LATANOPROST 0.005% OPHTH SOLN 2.5 ML OU SCH (20:56)
[2021-05-06] MEDS: LITHIUM CARBONATE 600MG CAP PO SCH (20:57)
[2021-05-06] MEDS: amLODIPine 5 MG TAB PO SCH (20:57)
[2021-05-06] MEDS: QUEtiapine FUMARATE 200 MG TAB PO SCH (20:57)
[2021-05-06] MEDS: ACETAMINOPHEN TAB 650MG DOSE (2X325MG) PO PRN (20:59)
[2021-05-07] MEDS: LEVOTHYROXINE 50MCG TABLET (0.05MG) PO SCH (05:54)
[2021-05-07 06:44] VITALS: BP 140/65
[2021-05-07] MEDS: OMEPRAZOLE 20 MG CAP PO SCH (09:17)
[2021-05-07] MEDS: ASPIRIN 81MG ENTERIC TABLET PO SCH (09:17)
[2021-05-07] MEDS: MULTIVITAMINS/MINERALS THERAP 1 TAB PO SCH (09:17)
[2021-05-07] MEDS: SERTRALINE 100 MG TAB PO SCH (09:17)
[2021-05-07] MEDS: QUEtiapine FUMARATE 50MG TAB PO SCH (09:18)
[2021-05-07] MEDS: TIMOLOL MALEATE 0.5% OPHTH SOLN 5 ML OU SCH ×2 (09:18→20:27)
[2021-05-07] MEDS: HYDROXYCHLOROQUINE 200 MG TAB PO SCH ×2 (09:18→20:27)
[2021-05-07] MEDS: LITHIUM CARBONATE 300 MG CAP PO SCH (09:18)
--- NOTE | 2021-05-07 11:11 | MHIPNPDOC ---
[facility] Progress Note Progress Note DATE OF SERVICE: 05/07/21 HISTORY: Patient is a 60-year-old female, single, living by herself in an apartment provided by transitional living services ([facility]). Was admitted paige use of suicidal thoughts. She has a long history of mental illness. She started seeing psychiatrist from age 11. She has multiple history of multiple psychiatric hospitalizations. Was diagnosed with schizoaffective disorder. Since then, she reports her compliance with medication is mixed. Sometimes she is noncompliant. She is [facility] up at [facility]. 60- year old female with a past medical history of schizoaffective disorder, hypertension, hypothyroidism, sleep apnea, GERD reported coming to the hospital for suicidal ideations. She reports having " bad thoughts" and was in regrets. She reports lately she has not been taking her medications were been compliant with her CPAP. VITAL SIGNS: See below. CURRENT MEDICATIONS: See below. MENTAL STATUS EXAMINATION: Patient is a 60-year-old female, single, living by herself in an apartment provided by transitional living services ([facility]). Was admitted because of suicidal thoughts. Speech: normal rate, tone and volume, angry Language skills are intact Thought processes including: coherent Thought content: ruminative and anxious. Denies suicidal/homicidal ideation, planning or intent. Abstract reasoning, and computation: fair Description of associations: denies, none observed Description of abnormal or psychotic thoughts: denies, none observed. Judgment: improving Insight: improving Orientation: alert and oriented to person, place, time and situation Recent and remote memory: unable to determine as she is blocked and does not finish her sentences Attention span and concentration: poor Language: expansive Fund of knowledge: Below average Mood: Labile Mood Affect: Irritable and Labile DIAGNOSES: 1. Schizoaffective disorder, bipolar type. 2. Anxiety disorder, unspecified. 3. Sleep apnea. 4. Hypertension. ASSESSMENT: Patient reports she is upset because she was told that she was being discharged today. Reinforced that with her labile mood and need for continued stabilization that she is not at baseline. Patient maintains that she is not being helped at the hospital and that she wishes to be discharged. Treatment team feels strongly that patient needs to be monitored for her verbal outbursts and labile mood is these may be an indicator of her bipolar symptoms. Patient denies that she is suicidal but throughout her interview she does not finish her sentence and becomes easily frustrated. Appears blocked at times when discussing why she needs to be discharged today. Often answers I do not know or trails off. At this moment she is yelling out profanities and having a loud verbal outburst. She ruminates about the person that may have told her that she was being discharged today. Her mood appears very unstable today. I have discussed this with the patient and she states that she is normally this way. MANAGEMENT PLAN: Continue all medications and supportive therapy. Discharge early next week. TIME SPENT: 25 minutes. Vital Signs Vital Signs Date Time Temp Pulse Resp B/P (MAP) Pulse Ox O2 Delivery O2 Flow Rate FiO2 05/07/21 06:44 97.1 65 18 140/65 (90) 99 Room Air Laboratory Data 24H Labs Laboratory Tests 2 05/06/21 16:30: Urine Color YELLOW, Urine Appearance HAZY, Urine pH 6.0, Urine Specific [place] 1.018, Urine Protein NEGATIVE, Urine Glucose (UA) NEGATIVE, Urine Ketones NEGATIVE, Urine Blood NEGATIVE, Urine Nitrite NEGATIVE, Urine Bilirubin NEGATIVE, Urine Urobilinogen 0.2, Urine Leukocyte Esterase 1+H, Urine WBC (Auto) 9H, Urine RBC (Auto) 1, Urine Hyaline Casts (Auto) 0, Urine Bacteria (Auto) NEGATIVE, Urine Squamous Epithelial Cells 1, Urine Mucus (Auto) SMALL, Urine Sperm (Auto) Current Medications Current Medications Medications (Trade) Dose Ordered Sig/Suzanne Route PRN Reason Start Time Stop Time Status Last Admin Dose Admin Acetaminophen (Tylenol Tab) 650 mg Q6HP PRN PO HEADACHE or MILD DISCOMFORT 04/29/21 01:30 05/06/21 20:59 Al Hydrox/Mg Hydrox/Simethicone (Mylanta) 30 ml Q4HP PRN PO HEARTBURN/INDIGESTION 04/29/21 01:30 Amlodipine Besylate (Norvasc) 5 mg QHS PO 04/29/21 21:00 05/06/21 20:57 Artificial Tears (Akwa Tears) 1 drop QID PRN OU DRY EYES 04/29/21 21:00 Aspirin (Ecotrin) 81 mg DAILY PO 04/30/21 09:00 05/07/21 09:17 Docusate Sodium (Colace) 200 mg DAILYPRN PRN PO CONSTIPATION 04/29/21 20:25 05/01/21 16:29 Home Med (Home Med List Complete!) ASDIRECTED XX 04/29/21 01:20 04/29/21 01:38 DC Hydroxychloroquine Sulfate (Plaquenil) 200 mg BID PO 04/29/21 21:00 05/07/21 09:18 Lactic Acid (Lac-Hydrin 12% Lotion) 1 dose DAILY PRN TOP DRY SKIN 04/29/21 20:50 Latanoprost (Xalatan 0.005% Op Soln) 1 drop QHS OU 04/29/21 21:00 05/06/21 20:56 Levothyroxine Sodium (Synthroid) 50 mcg DAILY@0600 PO 04/30/21 06:00 05/07/21 05:54 Lidocaine HCl (Lidocaine 2% Visc Soln) 15 ml QID PRN SSP MOUTH IRRITATION 04/29/21 20:50 [place] Carbonate ([place] Carbonate) 300 mg BID PO 04/30/21 09:00 05/02/21 09:34 DC 05/02/21 09:18 [place] Carbonate ([place] Carbonate) 300 mg QAM PO 05/03/21 09:00 05/07/21 09:18 [place] Carbonate ([place] Carbonate) 600 mg QHS PO 05/02/21 21:00 05/06/21 20:57 Magnesium Hydroxide (Milk Of Magnesia) 30 ml DAILYPRN PRN PO CONSTIPATION 04/29/21 01:30 Multivitamins (Theragram-M) 1 tab DAILY PO 04/30/21 09:00 05/07/21 09:17 Omeprazole (PriLOSEC) 40 mg DAILY PO 04/30/21 09:00 05/07/21 09:17 Quetiapine Fumarate (SEROquel) 50 mg QAM PO 05/04/21 09:00 05/07/21 09:18 Quetiapine Fumarate (SEROquel) 100 mg QHS PO 04/30/21 21:00 05/02/21 09:37 DC 05/01/21 20:55 Quetiapine Fumarate (SEROquel) 200 mg QHS PO 05/02/21 21:00 05/06/21 20:57 Sertraline HCl (Zoloft) 100 mg QAM PO 04/30/21 09:00 05/07/21 09:17 Timolol Maleate (Timoptic 0.5% Ophth Paulina) 1 drop BID OU 04/29/21 21:00 05/07/21 09:18 Trazodone HCl (Desyrel) 50 mg QHSP PRN PO INSOMNIA 04/29/21 01:30 05/02/21 09:34 DC 04/30/21 21:49 Allergies Coded Allergies: nitrofurantoin (Verified Allergy, Mild, 12/29/18) hydroxyzine (Verified Allergy, Unknown, 12/29/18) doxepin (Verified Adverse Reaction, Severe, SEIZURE, 05/19/19) bupropion (Verified Adverse Reaction, Intermediate, 'SPEEDS UP', 12/29/18) chlorpromazine (Verified Adverse Reaction, Intermediate, EPS, 12/29/18) trifluoperazine (Verified Adverse Reaction, Intermediate, EPS, 12/29/18) haloperidol (Verified Adverse Reaction, Unknown, 10/18/19) "grumpy" thioridazine (Verified Adverse Reaction, Unknown, EPS, 12/29/18) zolpidem (Verified Adverse Reaction, Unknown, 10/18/19) "feels strange" KULWINDER LIN NP May 07, 2021 10:58
[2021-05-07 18:42] VITALS: BP 136/84
[2021-05-07] MEDS: QUEtiapine FUMARATE 200 MG TAB PO SCH (20:26)
[2021-05-07] MEDS: LITHIUM CARBONATE 600MG CAP PO SCH (20:26)
[2021-05-07] MEDS: LATANOPROST 0.005% OPHTH SOLN 2.5 ML OU SCH (20:27)
[2021-05-07] MEDS: amLODIPine 5 MG TAB PO SCH (20:38)
[2021-05-08] MEDS: LEVOTHYROXINE 50MCG TABLET (0.05MG) PO SCH (05:54)
[2021-05-08 06:31] VITALS: BP 160/77
[2021-05-08] MEDS: OMEPRAZOLE 20 MG CAP PO SCH (09:12)
[2021-05-08] MEDS: MULTIVITAMINS/MINERALS THERAP 1 TAB PO SCH (09:12)
[2021-05-08] MEDS: ASPIRIN 81MG ENTERIC TABLET PO SCH (09:12)
[2021-05-08] MEDS: QUEtiapine FUMARATE 50MG TAB PO SCH (09:13)
[2021-05-08] MEDS: TIMOLOL MALEATE 0.5% OPHTH SOLN 5 ML OU SCH ×2 (09:13→21:34)
[2021-05-08] MEDS: LITHIUM CARBONATE 300 MG CAP PO SCH (09:13)
[2021-05-08] MEDS: SERTRALINE 100 MG TAB PO SCH (09:13)
[2021-05-08] MEDS: HYDROXYCHLOROQUINE 200 MG TAB PO SCH ×2 (09:13→21:35)
--- NOTE | 2021-05-08 12:51 | MHIPNPDOC ---
[facility] Progress Note Progress Note DATE OF SERVICE: 05/08/21 HISTORY: Patient is a 60-year-old female, single, living by herself in an apartment provided by transitional living services ([facility]). Was admitted because of suicidal thoughts. She has a long history of mental illness. She started seeing psychiatrist from age 11. She has multiple history of multiple psychiatric hospitalizations. Was diagnosed with schizoaffective disorder. Since then, she reports her compliance with medication is mixed. Sometimes she is noncompliant. [facility] is [facility] at [facility]. 60- year old female with a past medical history of schizoaffective disorder, hypertension, hypothyroidism, sleep apnea, GERD reported coming to the hospital for suicidal ideations. She reports having " bad thoughts" and was in regrets. She reports lately she has not been taking her medications were been compliant with her CPAP. Patient yelling on unit, Seen in her room. Very angry and irritable, VITAL SIGNS: See below. CURRENT MEDICATIONS: See below. MENTAL STATUS EXAMINATION: Patient is a 60-year-old female, single, living by herself in an apartment provided by transitional living services ([facility]). Was admitted because of suicidal thoughts. Speech: normal rate, tone and volume, angry Language skills are intact Thought processes including: coherent Thought content: ruminative and anxious. Denies suicidal/homicidal ideation, planning or intent. Abstract reasoning, and computation: fair Description of associations: denies, none observed Description of abnormal or psychotic thoughts: denies, none observed. Judgment: improving Insight: improving Orientation: alert and oriented to person, place, time and situation Recent and remote memory: unable to determine as she is blocked and does not finish her sentences Attention span and concentration: poor Language: expansive Fund of knowledge: Below average Mood: Labile Mood Affect: Irritable and Labile DIAGNOSES: 1. Schizoaffective disorder, bipolar type. 2. Anxiety disorder, unspecified. 3. Sleep apnea. 4. Hypertension. ASSESSMENT: Patient reports she is upset because she was told that she was being discharged today. Reinforced that with her labile mood and need for continued stabilization that she is not at baseline. Patient maintains that she is not being helped at the hospital and that she wishes to be discharged. Treatment team feels strongly that patient needs to be monitored for her verbal outbursts and labile mood is these may be an indicator of her bipolar symptoms. Patient denies that she is suicidal but throughout her interview she does not finish her sentence and becomes easily frustrated. Appears blocked at times when discussing why she needs to be discharged today. Often answers I do not know or trails off. Today again she is yelling out profanities and having a loud verbal outburst. She ruminates about the person that may have told her that she was being discharged today. Her mood appears very unstable again. I have discussed this with the patient and she states that she is normally this way. MANAGEMENT PLAN: Continue all medications and supportive therapy. Discharge early next week according yo SENIOR TAX SPECIALIST TIME SPENT: 25 minutes. Vital Signs Vital Signs Date Time Temp Pulse Resp B/P (MAP) Pulse Ox O2 Delivery O2 Flow Rate FiO2 05/08/21 06:31 97.9 69 18 160/77 (104) 96 Room Air Current Medications Current Medications Medications (Trade) Dose Ordered Sig/Suzanne Route PRN Reason Start Time Stop Time Status Last Admin Dose Admin Acetaminophen (Tylenol Tab) 650 mg Q6HP PRN PO HEADACHE or MILD DISCOMFORT 04/29/21 01:30 05/06/21 20:59 Al Hydrox/Mg Hydrox/Simethicone (Mylanta) 30 ml Q4HP PRN PO HEARTBURN/INDIGESTION 04/29/21 01:30 Amlodipine Besylate (Norvasc) 5 mg QHS PO 04/29/21 21:00 05/07/21 20:38 Artificial Tears (Akwa Tears) 1 drop QID PRN OU DRY EYES 04/29/21 21:00 Aspirin (Ecotrin) 81 mg DAILY PO 04/30/21 09:00 05/08/21 09:12 Docusate Sodium (Colace) 200 mg DAILYPRN PRN PO CONSTIPATION 04/29/21 20:25 05/01/21 16:29 Home Med (Home Med List Complete!) ASDIRECTED XX 04/29/21 01:20 04/29/21 01:38 DC Hydroxychloroquine Sulfate (Plaquenil) 200 mg BID PO 04/29/21 21:00 05/08/21 09:13 Lactic Acid (Lac-Hydrin 12% Lotion) 1 dose DAILY PRN TOP DRY SKIN 04/29/21 20:50 Latanoprost (Xalatan 0.005% Op Soln) 1 drop QHS OU 04/29/21 21:00 05/07/21 20:27 Levothyroxine Sodium (Synthroid) 50 mcg DAILY@0600 PO 04/30/21 06:00 05/08/21 05:54 Lidocaine HCl (Lidocaine 2% Visc Soln) 15 ml QID PRN SSP MOUTH IRRITATION 04/29/21 20:50 [place] Carbonate ([place] Carbonate) 300 mg BID PO 04/30/21 09:00 05/02/21 09:34 DC 05/02/21 09:18 [place] Carbonate ([place] Carbonate) 300 mg QAM PO 05/03/21 09:00 05/08/21 09:13 [place] Carbonate ([place] Carbonate) 600 mg QHS PO 05/02/21 21:00 05/07/21 20:26 Magnesium Hydroxide (Milk Of Magnesia) 30 ml DAILYPRN PRN PO CONSTIPATION 04/29/21 01:30 Multivitamins (Theragram-M) 1 tab DAILY PO 04/30/21 09:00 05/08/21 09:12 Omeprazole (PriLOSEC) 40 mg DAILY PO 04/30/21 09:00 05/08/21 09:12 Quetiapine Fumarate (SEROquel) 50 mg QAM PO 05/04/21 09:00 05/08/21 09:13 Quetiapine Fumarate (SEROquel) 100 mg QHS PO 04/30/21 21:00 05/02/21 09:37 DC 05/01/21 20:55 Quetiapine Fumarate (SEROquel) 200 mg QHS PO 05/02/21 21:00 05/07/21 20:26 Sertraline HCl (Zoloft) 100 mg QAM PO 04/30/21 09:00 05/08/21 09:13 Timolol Maleate (Timoptic 0.5% Ophth Paulina) 1 drop BID OU 04/29/21 21:00 05/08/21 09:13 Trazodone HCl (Desyrel) 50 mg QHSP PRN PO INSOMNIA 04/29/21 01:30 05/02/21 09:34 DC 04/30/21 21:49 Allergies Coded Allergies: nitrofurantoin (Verified Allergy, Mild, 12/29/18) hydroxyzine (Verified Allergy, Unknown, 12/29/18) doxepin (Verified Adverse Reaction, Severe, SEIZURE, 05/19/19) bupropion (Verified Adverse Reaction, Intermediate, 'SPEEDS UP', 12/29/18) chlorpromazine (Verified Adverse Reaction, Intermediate, EPS, 12/29/18) trifluoperazine (Verified Adverse Reaction, Intermediate, EPS, 12/29/18) haloperidol (Verified Adverse Reaction, Unknown, 10/18/19) "grumpy" thioridazine (Verified Adverse Reaction, Unknown, EPS, 12/29/18) zolpidem (Verified Adverse Reaction, Unknown, 10/18/19) "feels strange" FELIZ MORILLO MD May 08, 2021 12:51
[2021-05-08 18:40] VITALS: BP 142/75
[2021-05-08] MEDS: LATANOPROST 0.005% OPHTH SOLN 2.5 ML OU SCH (21:34)
[2021-05-08] MEDS: LITHIUM CARBONATE 600MG CAP PO SCH (21:35)
[2021-05-08] MEDS: QUEtiapine FUMARATE 200 MG TAB PO SCH (21:35)
[2021-05-08] MEDS: amLODIPine 5 MG TAB PO SCH (21:37)
[2021-05-09] MEDS: LEVOTHYROXINE 50MCG TABLET (0.05MG) PO SCH (06:10)
[2021-05-09 07:02] VITALS: BP 136/65
[2021-05-09] MEDS: MULTIVITAMINS/MINERALS THERAP 1 TAB PO SCH (09:26)
[2021-05-09] MEDS: ASPIRIN 81MG ENTERIC TABLET PO SCH (09:26)
[2021-05-09] MEDS: OMEPRAZOLE 20 MG CAP PO SCH (09:26)
[2021-05-09] MEDS: QUEtiapine FUMARATE 50MG TAB PO SCH (09:26)
[2021-05-09] MEDS: SERTRALINE 100 MG TAB PO SCH (09:26)
[2021-05-09] MEDS: TIMOLOL MALEATE 0.5% OPHTH SOLN 5 ML OU SCH ×2 (09:26→21:04)
[2021-05-09] MEDS: LITHIUM CARBONATE 300 MG CAP PO SCH (09:27)
[2021-05-09] MEDS: ACETAMINOPHEN TAB 650MG DOSE (2X325MG) PO PRN (09:28)
[2021-05-09] MEDS: HYDROXYCHLOROQUINE 200 MG TAB PO SCH ×2 (09:33→21:07)
--- NOTE | 2021-05-09 14:31 | MHIPNPDOC ---
[facility] Progress Note Progress Note DATE OF SERVICE: 05/09/21 HISTORY: . VITAL SIGNS: See below. HISTORY: Patient is a 60-year-old female, single, living by herself in an apartment provided by transitional living services ([facility]). Was admitted because of suicidal thoughts. She has a long history of mental illness. She started seeing psychiatrist from age 11. She has multiple history of multiple psychiatric hospitalizations. Was diagnosed with schizoaffective disorder. Since then, she reports her compliance with medication is mixed. Sometimes she is noncompliant. [facility]. 60- year old female with a past medical history of schizoaffective disorder, hype rtension, hypothyroidism, sleep apnea, GERD reported coming to the hospital for suicidal ideations. She reports having " bad thoughts" and was in regrets. She reports lately she has not been taking her medications were been compliant with her CPAP. Patient yelling on unit, Seen in her room. Very angry and irritable, VITAL SIGNS: See below. CURRENT MEDICATIONS: See below. MENTAL STATUS EXAMINATION: Patient is a 60-year-old female, single, living by herself in an apartment provided by transitional living services ([facility]). Was admitted because of suicidal thoughts. Speech: normal rate, Language skills are intact Thought processes including: coherent Thought content: Today no obvious distortions. Denies suicidal/homicidal ideation, planning or intent. Abstract reasoning, and computation: fair Description of associations: denies, none observed Description of abnormal or psychotic thoughts: denies, none observed. Judgment: improving Insight: improving Orientation: alert and oriented to person, place, time and situation Recent and remote memory: intact Attention span and concentration: improved today Language: No disturbance Fund of knowledge: Below average Mood: Pleasant affect: Neutral DIAGNOSES: 1. Schizoaffective disorder, bipolar type. 2. Anxiety disorder, unspecified. 3. Sleep apnea. 4. Hypertension. MANAGEMENT PLAN: Continue all medications and supportive therapy. Discharge early next week according to GENERAL HELPER TIME SPENT: 25 minutes. MANAGEMENT PLAN: . TIME SPENT: minutes. Vital Signs Vital Signs Date Time Temp Pulse Resp B/P (MAP) Pulse Ox O2 Delivery O2 Flow Rate FiO2 05/09/21 08:48 Room Air 05/09/21 07:02 97.6 65 16 136/65 (88) 97 Current Medications Current Medications Medications (Trade) Dose Ordered Sig/Suzanne Route PRN Reason Start Time Stop Time Status Last Admin Dose Admin Acetaminophen (Tylenol Tab) 650 mg Q6HP PRN PO HEADACHE or MILD DISCOMFORT 04/29/21 01:30 05/09/21 09:28 Al Hydrox/Mg Hydrox/Simethicone (Mylanta) 30 ml Q4HP PRN PO HEARTBURN/INDIGESTION 04/29/21 01:30 Amlodipine Besylate (Norvasc) 5 mg QHS PO 04/29/21 21:00 05/08/21 21:37 Artificial Tears (Akwa Tears) 1 drop QID PRN OU DRY EYES 04/29/21 21:00 Aspirin (Ecotrin) 81 mg DAILY PO 04/30/21 09:00 05/09/21 09:26 Docusate Sodium (Colace) 200 mg DAILYPRN PRN PO CONSTIPATION 04/29/21 20:25 05/01/21 16:29 Home Med (Home Med List Complete!) ASDIRECTED XX 04/29/21 01:20 04/29/21 01:38 DC Hydroxychloroquine Sulfate (Plaquenil) 200 mg BID PO 04/29/21 21:00 05/09/21 09:33 Lactic Acid (Lac-Hydrin 12% Lotion) 1 dose DAILY PRN TOP DRY SKIN 04/29/21 20:50 Latanoprost (Xalatan 0.005% Op Soln) 1 drop QHS OU 04/29/21 21:00 05/08/21 21:34 Levothyroxine Sodium (Synthroid) 50 mcg DAILY@0600 PO 04/30/21 06:00 05/09/21 06:10 Lidocaine HCl (Lidocaine 2% Visc Soln) 15 ml QID PRN SSP MOUTH IRRITATION 04/29/21 20:50 Vander Carbonate (Vander Carbonate) 300 mg BID PO 04/30/21 09:00 05/02/21 09:34 DC 05/02/21 09:18 Vander Carbonate (Vander Carbonate) 300 mg QAM PO 05/03/21 09:00 05/09/21 09:27 Vander Carbonate ([place]ander Carbonate) 600 mg QHS PO 05/02/21 21:00 05/08/21 21:35 Magnesium Hydroxide (Milk Of Magnesia) 30 ml DAILYPRN PRN PO CONSTIPATION 04/29/21 01:30 Multivitamins (Theragram-M) 1 tab DAILY PO 04/30/21 09:00 05/09/21 09:26 Omeprazole (PriLOSEC) 40 mg DAILY PO 04/30/21 09:00 05/09/21 09:26 Quetiapine Fumarate (SEROquel) 50 mg QAM PO 05/04/21 09:00 05/09/21 09:26 Quetiapine Fumarate (SEROquel) 100 mg QHS PO 04/30/21 21:00 05/02/21 09:37 DC 05/01/21 20:55 Quetiapine Fumarate (SEROquel) 200 mg QHS PO 05/02/21 21:00 05/08/21 21:35 Sertraline HCl (Zoloft) 100 mg QAM PO 04/30/21 09:00 05/09/21 09:26 Timolol Maleate (Timoptic 0.5% Ophth Paulina) 1 drop BID OU 04/29/21 21:00 05/09/21 09:26 Trazodone HCl (Desyrel) 50 mg QHSP PRN PO INSOMNIA 04/29/21 01:30 05/02/21 09:34 DC 04/30/21 21:49 Allergies Coded Allergies: nitrofurantoin (Verified Allergy, Mild, 12/29/18) hydroxyzine (Verified Allergy, Unknown, 12/29/18) doxepin (Verified Adverse Reaction, Severe, SEIZURE, 05/19/19) bupropion (Verified Adverse Reaction, Intermediate, 'SPEEDS UP', 12/29/18) chlorpromazine (Verified Adverse Reaction, Intermediate, EPS, 12/29/18) trifluoperazine (Verified Adverse Reaction, Intermediate, EPS, 12/29/18) haloperidol (Verified Adverse Reaction, Unknown, 10/18/19) "grumpy" thioridazine (Verified Adverse Reaction, Unknown, EPS, 12/29/18) zolpidem (Verified Adverse Reaction, Unknown, 10/18/19) "feels strange" FELIZ MORILLO MD May 09, 2021 14:31
[2021-05-09 17:57] VITALS: BP_SYST 139; BP_DIAS 78; BP_DIAS 84
[2021-05-09 21:07] VITALS: BP 135/89
[2021-05-09] MEDS: QUEtiapine FUMARATE 200 MG TAB PO SCH (21:07)
[2021-05-09] MEDS: LITHIUM CARBONATE 600MG CAP PO SCH (21:07)
[2021-05-09] MEDS: amLODIPine 5 MG TAB PO SCH (21:07)
[2021-05-09] MEDS: LATANOPROST 0.005% OPHTH SOLN 2.5 ML OU SCH (21:13)
[2021-05-10] MEDS: LEVOTHYROXINE 50MCG TABLET (0.05MG) PO SCH (05:05)
[2021-05-10 06:16] VITALS: BP 140/71
[2021-05-10] MEDS: TIMOLOL MALEATE 0.5% OPHTH SOLN 5 ML OU SCH (08:49)
[2021-05-10] MEDS: ASPIRIN 81MG ENTERIC TABLET PO SCH (08:49)
[2021-05-10] MEDS: SERTRALINE 100 MG TAB PO SCH (08:49)
[2021-05-10] MEDS: MULTIVITAMINS/MINERALS THERAP 1 TAB PO SCH (08:49)
[2021-05-10] MEDS: QUEtiapine FUMARATE 50MG TAB PO SCH (08:49)
[2021-05-10] MEDS: LITHIUM CARBONATE 300 MG CAP PO SCH (08:49)
[2021-05-10] MEDS: OMEPRAZOLE 20 MG CAP PO SCH (08:50)
[2021-05-10] MEDS: HYDROXYCHLOROQUINE 200 MG TAB PO SCH (08:50)
[2021-05-10] MEDS: DOCUSATE SODIUM 100MG CAPSULE PO PRN (10:24)
[2021-05-10] MEDS ORDERED: QUET50TA4 PO (13:55)
[2021-05-10] MEDS ORDERED: QUET200T2 PO (13:55)
[2021-05-10] MEDS ORDERED: AMLO1TAB24 PO (13:55)
[2021-05-10] MEDS ORDERED: ZOLO100T PO (13:55)
[2021-05-10] MEDS ORDERED: LITH600C PO (13:55)
[2021-05-10] MEDS ORDERED: LITH300C PO (13:55)
--- NOTE | 2021-05-10 16:02 | MHDSPDOC ---
[facility] Discharge Summary Discharge Summary DATE OF ADMISSION: Apr 28, 2021 at 19:23 DATE OF DISCHARGE: May 10, 2021 at 14:55 DISCHARGE DIAGNOSES: 1. Schizoaffective disorder, bipolar type. 2. Anxiety disorder, unspecified. 3. Sleep apnea. 4. Hypertension. REASON FOR ADMISSION: Patient is a 60-year-old female, single, living by herself in an apartment provided by transitional living services ([facility]). Was admitted because of suicidal thoughts. She has a long history of mental illness. She started seeing psychiatrist from age 11. She has multiple history of multiple psychiatric hospitalizations. Was diagnosed with schizoaffective disorder. Since then, she reports her compliance with medication is mixed. Sometimes she is noncompliant. She is followed up at [facility]. 60-year old female with a past medical history of schizoaffective disorder, hypertension, hypothyroidism, sleep apnea, GERD reported coming to the hospital for suicidal ideations. She reports having " bad thoughts" and was in regrets. She reports lately she has not been taking her medications were been compliant with her CPAP. VITAL SIGNS: See below. CONSULTANTS INVOLVED: See Medical H + P by Hospitalist TREATMENT AND PROGRESS ON THE UNIT: Patient was admitted to the [facility] on a 9.39 legal status was afforded the following treatment modalities: 1) Individual Therapy 2) Group Therapy 3) Medication Management 4) Milieu Therapy 5) Safe Environment HOSPITAL COURSE: Patient was admitted to [facility] on a 9.39 legal status. Patient was restarted on reduced home medications as it was uncertain if she had been compliant. Titration of these meds were based on therapeutic levels but are not equivalent to her home dose. Pt found medications beneficial and tolerated them well. Initially patient was very irritable and mildly agitated and often argumentative. Over the weekend, staff reported that patient's mood improved significantly. Mood, anxiety, and intrusive thoughts improved with treatment. Pt attended groups daily during stay. Pts symptoms improved with treatment - she reports feeling better. On day of discharge pt. denied depression, anxiety, insomnia, SI/HI, hallucinations, delusions. Pt was discharged home with follow- up at [facility]. Pt felt safe for discharge. DISCHARGE ASSESSMENT: In today's interview, patient is alert and oriented, pt.s dress is appropriate. Hygiene and grooming is well-kempt. Smiles on approach and is pleasant and engaged in the interview. Denies depression and anxiety. Denies suicidal and homicidal ideation, planning or intent. Denies and is not observed with linwood, psychotic symptoms of delusions, bizarre thinking, obsessions, paranoia, ruminations illogical thoughts, flight of ideas or having poor insight and judgement. At discharge patient has normal mentation, declines further hospitalization on a voluntary status and meets criteria for discharge today. MENTAL STATUS EXAMINATION ON DISCHARGE: Patient is a 60-year-old Single, Disabled, Domiciled female, who lives at [facility] and was admitted because of suicidal thoughts. Speech: Is fluid, conversant, normal rate, tone and volume Language skills are intact Thought processes including: linear and goal oriented Thought content: denies depression and anxiety. Denies suicidal/homicidal ideation, planning or intent. Abstract reasoning, and computation: fair Description of associations: denies, none observed Description of abnormal or psychotic thoughts: denies, none observed. Judgment: fair Insight: fair Orientation: alert and oriented to person, place, time and situation Recent and remote memory: intact Attention span and concentration: good Language: expansive Fund of knowledge: average Mood: Euthymic Mood Affect: improved affect, bright Suicide Risk Assessment: 1) Does the patient wish to be ? No 2) Since your admission, have you had any actual thought of killing yourself? No 3) Since your admission, have you been thinking about how you might do this? No 4) Since your admission, have you had these thoughts and had some intention of acting on them? No 5) Since your admission, have you started to work out or worked out the details of how to kill yourself? No 5A) Do you intent to carry out this plan? No and NA 6) Have you ever done anything, started anything, or prepared to do anything with any intent to ? No 6A) How long since your admission did you do any of these? NA MEDICATIONS ON DISCHARGE: See Medication Reconciliation PLAN/FOLLOWUP ARRANGEMENTS: Patient discharged to home with follow up at [facility] The amount of time spent in the coordination of care for this patient was approximately 25 minutes. ETOH/Disorder Med Rx ETOH/DRUG DISORDER RX: N/A Vital Signs/I&Os Vital Signs Date Time Temp Pulse Resp B/P (MAP) Pulse Ox O2 Delivery O2 Flow Rate FiO2 9/13/21 06:16 97.1 63 18 140/71 (94) 97 Room Air Laboratory Data Microbiology Microbiology 05/06/21 Urine Culture - Final, Complete Medications Scheduled Amlodipine Besylate (Amlodipine Besylate) 5 Mg Tablet, 5 MG PO QHS for Blood Pressure, #7 Aspirin (Aspirin EC) 81 Mg Tablet.dr, 81 MG PO DAILY, (Reported) Calcium Carbonate/Vitamin D3 (Calcium 600-Vit D3 400 Tablet) 1 Each Tablet, 1 TAB PO BID, (Reported) Ciclopirox Olamine (Ciclopirox) 15 Gm Cream..g., 1 DOSE EXT DAILY, (Reported) APPLY TO TOENAILS Cranberry (Cranberry) 400 Mg Capsule, 400 MG PO BID, (Reported) Docusate Sodium (Colace) 100 Mg Cap, 200 MG PO DAILY, (Reported) Fexofenadine HCl (Fexofenadine HCl) 180 Mg Tablet, 180 MG PO DAILY, (Reported) Hydrochlorothiazide (Hydrochlorothiazide) 12.5 Mg Tablet, 12.5 MG PO DAILY, (Reported) Hydroxychloroquine Sulfate (Hydroxychloroquine Sulfate) 200 Mg Tablet, 200 MG PO BID, (Reported) Latanoprost (Xalatan) 0.005% 2.5ML Drops, 1 DROP OU QHS, (Reported) Levothyroxine Sodium (Levoxyl) 50 Mcg Tab, 50 MCG PO DAILY, (Reported) [place] Carbonate ([place] Carbonate) 600 Mg Capsule, 600 MG PO QHS for Mood stabilization, #1 [place] Carbonate ([place] Carbonate) 300 Mg Capsule, 300 MG PO QAM for Mood Stabilization, #7 Multivitamins (Thera M Plus Tablet) 1 Each Tablet, 1 TAB PO DAILY, (Reported) Omeprazole (Omeprazole) 40 Mg Cap, 40 MG PO DAILY, (Reported) Quetiapine Fumarate (Quetiapine Fumarate) 200 Mg Tablet, 200 MG PO QHS for Mood Stabilization, #7 Quetiapine Fumarate (Quetiapine Fumarate) 50 Mg Tablet, 50 MG PO BID for Mood, #14 Take at 0800 and 1400 Sertraline Hcl (Zoloft) 100 Mg Tablet, 100 MG PO QAM for Mood, #7 Timolol Maleate (Timolol Maleate) 0.5% 5ML Drop.daily, 1 DROP OU BID, (Reported) Scheduled PRN Ammonium Lactate (Ammonium Lactate) 12% Lotion, 1 DOSE TOP DAILY PRN for DRY SKIN, (Reported) APPLY TO FEET Lidocaine HCl (Lidocaine HCl Viscous) 15 Ml Solution, 15 ML SSP QID PRN for MOUTH IRRITATION, (Reported) Polyvinyl Alcohol (Artificial Tears) 1.4 % Paulina, 1 DROP OU QID PRN for DRY EYES, (Reported) Allergies Coded Allergies: nitrofurantoin (Verified Allergy, Mild, 12/29/18) hydroxyzine (Verified Allergy, Unknown, 12/29/18) doxepin (Verified Adverse Reaction, Severe, SEIZURE, 05/19/19) bupropion (Verified Adverse Reaction, Intermediate, 'SPEEDS UP', 12/29/18) chlorpromazine (Verified Adverse Reaction, Intermediate, EPS, 12/29/18) trifluoperazine (Verified Adverse Reaction, Intermediate, EPS, 12/29/18) haloperidol (Verified Adverse Reaction, Unknown, 10/18/19) "grumpy" thioridazine (Verified Adverse Reaction, Unknown, EPS, 12/29/18) zolpidem (Verified Adverse Reaction, Unknown, 10/18/19) "feels strange" KULWINDER LIN NP May 10, 2021 16:02
[2021-05-11] MEDS ORDERED: LITH600C PO (09:03)
== END 2021-05-10 14:55 | disposition home or self-care (01) | DRG 885 ==
LOC: M ED 19:22 → EDSEX 19:22 → M PSY 19:23
PROVIDERS: ADMIT Psychiatry & Neurology Psychiatry; ATTEND Psychiatry & Neurology Psychiatry
DX: F25.0 Schizoaffective disorder, bipolar type (principal); R45.851 Suicidal ideations; F41.9 Anxiety disorder, unspecified; G47.33 Obstructive sleep apnea (adult) (pediatric); I10 Essential (primary) hypertension; Z91.14 Patient's other noncompliance with medication regimen; Z79.899 Other long term (current) drug therapy; Z91.5 Personal history of self-harm; K21.9 Gastro-esophageal reflux disease without esophagitis; Z62.810 Personal history of physical and sexual abuse in childhood; Z88.1 Allergy status to other antibiotic agents; Z88.8 Allergy status to other drugs, medicaments and biological substances; Z20.822 Contact with and (suspected) exposure to COVID-19; E03.9 Hypothyroidism, unspecified; Z86.718 Personal history of other venous thrombosis and embolism; R10.9 Unspecified abdominal pain

== ENCOUNTER → 2021-05-27 | Outpatient (CLI) | payer MEDICARE, MEDICAID ==
[~2021-05-27] MED LIST changes: +AMLO1TAB24 PO; +ASPI-161 PO; +CALC600T17 PO; +CRAN400C PO; +FEXO180T70 PO; +HYDR200T3 PO; +LIDO2SOL17 SSP; +QUET400T42 PO; +QUET50TA4 PO; +SERT50TA29 PO; +TIMO0.5S39 OU
--- NOTE | 2021-05-27 15:39 | REP ---
INDICATION: PAIN DOMINIQUE LEGS. COMPARISON: None. TECHNIQUE: Bilateral lower extremity duplex venous scanning is performed from the groin to the ankle level. FINDINGS: The deep veins are anechoic and fully compressible from the groin to the popliteal fossa in the left and right lower extremity. Color flow imaging is homogeneous. Spectral Doppler interrogation demonstrates intact respiratory variation in flow and normal manual augmentation of flow. There is no evidence of deep vein thrombosis in the femoropopliteal veins. There is no evidence of deep vein thrombosis in the visualized calf veins. There are bilateral Lilly's cysts seen, on the right measuring 10.3 x 2.4 x 4.9 cm in on the left 9.3 x 1.8 x 4.4 cm. IMPRESSION: No evidence of DVT in the femoropopliteal veins. No DVT in the visible portions of the calf veins. Bilateral Lilly's cysts. <Electronically signed by Troy Roach > 05/27/21 1319
== END ==
LOC: M RAD 14:33
PROVIDERS: ATTEND Nurse Practitioner Adult Health
DX: M79.661 Pain in right lower leg (principal); M79.662 Pain in left lower leg; M77.31 Calcaneal spur, right foot; M77.32 Calcaneal spur, left foot

== ENCOUNTER 2021-06-18 07:27 | Emergency (ER) | payer MEDICARE, MEDICAID ==
[~2021-06-18] VITALS: Ht 172.7 cm; Wt 104.5 kg
--- OUTSIDE RECORDS SUMMARY | 2021-06-18 07:32 | CCD ---
Author Author [facility] Organization [facility] Address Unknown Phone Unavailable Care Team Providers Care Commanding Officer Traffic Division Name Role Phone Zaina Hernández Unavailable PROBLEMS Type Condition ICD9-CM Code FDU39-QH Code Onset Dates Condition S tatus W/U Status Risk SNOMED Code Notes Problem Gastroesophageal reflux disease, esophagitis pre sence not specified K21.9 Active confirmed 669337855 Problem Allergic rhinitis, unspecified seasonality, unspecifie d trigger J30.9 Active confirmed 96897523 Problem Hypothyroidism, unspecified type E03.9 Active conf irmed 45014056 Problem BMI 40.0-44.9, adult Z68.41 Active confirmed 834656921 Problem Pain in right knee M25.561 Active confirmed 87056416 Problem Other chronic pain G89.29 Active confirmed 8 8829591 Problem Mixed hyperlipidemia E78.2 Active confirmed 918592468 Problem Tongue pain K14.6 Active confirmed 02865220 Problem Schizoaffective disorder, depressive type F25.1 Active confirmed 86841048 Problem Essential hypertension I10 Active confirmed 72506552 Problem Schizoaffective disorder, unspecified type F25.9 Active confirmed 89097688 Problem Leg edema R60.0 Active confirmed 312346942 Problem Sleep apnea in adult G47.30 Active confirmed 20339706 Problem Depression, unspecified depression type F32.9 Active confirmed 03528333 Problem Vitamin D deficiency E55.9 Active confirmed 21359394 ALLERGIES Allergen (clinical drug ingredient) Drug/Non Drug Allergy do cumented on EMR Reaction Allergy Type Onset Date Status trifluoperazine Trifluoperazine Unknown Drug Allergy Ac tive stelazine hyperactive Non Drug Allergy Active Thorazine passes out/or paces back and forth Drug Allergy Active zolpidem Zolpidem Unknown Drug Allergy Active bupropion BuPROPion HCl([facility] Code:[address]-24) Unknown Drug Jadon rgy Active Haldol Unknown Drug Allergy Active doxepin Doxepin HCl([facility] Code:[address]-06) Unknown Drug Allerg y Active nitrofurantoin Nitrofurantoin([facility] Code:[address]-26) Unknown Drug Allergy Active chlorpromazine ChlorproMAZINE Unknown Drug Allergy Acti ve hydroxyzine HydrOXYzine HCl([facility] Code:[address]-03) Unknown Drug A llergy Active zolpidem Ambien([facility] Code:[address]-08) Unknown Drug Allergy Active ENCOUNTERS from 1960 to 2021-06-17 Encounter Location Date Provider Diagnosis [facility] [address] [phone] [place] [address] May, Zaina Servage IMMUNIZATIONS Vaccine Route Administration Date Status Influenza 18 yrs & older Flublok IM Intramuscular Jun 16, 2020 Administered Influenza 18 yrs & older Flublok IM Intramuscular Jun 07, 2019 Administered SOCIAL HISTORY Tobacco Use: Social History Observation Description Date Details (start date - stop date) Never Smoker Sex Assigned At : Social History Observation Description Sex Assigned At Unknown Education: Question Answer Notes Level of Education: High School Audit Question Answer Notes Total Score: 0 Interpretation: Alcohol Education Language: Question Answer Notes Languages spoken: [place] Religious: Question Answer Notes Religious 99 Other Mennonite Sexual Hx: Question Answer Notes Had sex in the last 12 months (vaginal, oral, or anal)? No LMP: post menopause Have you ever had an STD? No Drug and Alcohol Question Answer Notes Total Score: 0 Interpretation: No problems reported Alcohol Screening: Question Answer Notes Did you have a drink containing alcohol in the past year? No Points 0 Interpretation Negative BMI Care Goal Follow-Up Question Answer Notes Above Normal BMI Follow-Up Lifestyle education regarding t Tobacco Use: Question Answer Notes Are you a: never smoker never smoker REASON FOR REFERRAL No Information VITAL SIGNS No information MEDICATIONS Medication SIG (Take, Route, Frequency, Duration) Notes Start Da te End Date Status Hydroxychloroquine 200 mg 1 cap po twice daily Active Multivitamin - TAKE ONE TABLET BY MOUTH @8AM for 26 Active DOK 100 MG TAKE TWO CAPSULES BY MOUTH @8AM for 28 Active Mupirocin 2 % APPLY TOPICALLY THREE TIMES DAILY EXTERNALLY DIRECTED for 10 Active Timolol Maleate 0.25 % 1 drop into affected eye Ophthalmic Once a day Active Latanoprost 0.005 % 1 drop into affected eye in the evening Ophthalmic Once a day Active Aspirin Low Dose 81 MG TAKE ONE TABLET BY MOUTH @8AM for 26 Active Multivitamins 1 Orally daily for 30 Days Active Omeprazole 40 MG TAKE ONE CAPSULE BY MOUTH @8AM for 26 Active SEROquel 200 MG 1 tab Orally before bedtime Active Ciclopirox Olamine 0.77 % 1 application Externally daily to toenails on discharge from [facility] 05/10/21 Active Calcium 600 + D 600-400 MG-UNIT 1 tablet Orally twice a day for 30 da ys Active Rolling Walker 1 with seat, basket and brakes DX: CodeM25.561 daily for 1825 days FAX TO [facility] Jun, Active [place] Carbonate 300 MG 2 Orally at bedtime dose change on [facility] discharge 05/10/21 Active Synthroid 0.05 mg 1 tab(s) Orally daily Active Artificial Tear Active Fexofenadine HCl 180 MG 1 tablet orally Daily at 8AM for 30 Days Active [place] Carbonate 300 MG 1 capsule at bedtime Orally every morning for mood stabization Apr, Active Lidocaine Viscous HCl 2 % 15 ml orally tid prn mouth discomfort for 15 days Active SEROquel 25 mg 1 tab Orally at 8am and 2 pm Active Cranberry 400 MG as directed Orally bid on discharge 05/10/21 Active amLODIPine Besylate 5 MG 1 tablet Orally Once a day for 30 day(s ) Apr, Active Hydrochlorothiazide 12.5 MG TAKE ONE TABLET BY MOUTH @8AM for 28 Active Fluocinonide 0.05 % 1 application Externally Twice a day for 14 days May, Active Triamcinolone Acetonide 0.1 % 1 application topically Twice a day to rash for 14 days May, Active PROCEDURES No Information RESULTS No Results REASON FOR VISIT ? thrush MEDICAL (GENERAL) HISTORY Type Description Date Medical History Schizoaffective disorder nu [facility] on [facility] Medical History Depression Medical History Hypothyroidism Medical History DVT 08/05-right leg Medical History Hiatal hernia Medical History gerd Medical History constipation Medical History allergies Medical History PMB with neg D&C 2014 Medical History Arthritis Medical History Vitamin d def-25.4, 12/04/18 Medical History Out of hospital DNR pg 05/20 old records Medical History Stress Test 02/19/16 LVEF 65% Medical History Sleep Apnea,uses CPAP machine Medical History stress test 02/19/2016, LV of 65% Medical History colonoscopy 09/02/2014 with 10 year foll ow-up Surgical History tonsillectomy Surgical History breast biopsy/ left/benign 1989 Surgical History cervical biopsy Surgical History right arm - skin bx.-bug bite 2010 Surgical History colonoscopy 2008 Surgical History D&C hysteroscopy benign atrophic endome trium 2014 Surgical History Left total hip; requires abx prior to dental procedure d/t metallic implant 09/07/2017 Surgical History Colonoscopy hemorrhoids, 10 yr follow u p 09/02/14 Hospitalization History unspecified psychotic disorder 2020 Goals Section No Information Health Concerns No Information MEDICAL EQUIPMENT No Information MENTAL STATUS No Information FUNCTIONAL STATUS No Information ASSESSMENTS No Information PLAN OF TREATMENT Medication Medication Name Sig Start Date Stop Date Fluocinonide 0.05 % 1 application Externally Twice a day for 14 days May, Triamcinolone Acetonide 0.1 % 1 application topically Twice a day to rash for 14 days May, Lidocaine Viscous HCl 2 % 15 ml orally tid prn mouth discomfort for 15 days Omeprazole 40 MG TAKE ONE CAPSULE BY MOUTH @8AM for 26 Multivitamin - TAKE ONE TABLET BY MOUTH @8AM for 26 Fexofenadine HCl 180 MG 1 tablet orally Daily at 8AM for 30 Days Aspirin Low Dose 81 MG TAKE ONE TABLET BY MOUTH @8AM for 26 Next Appt Details Provider Name:Lili Ramirez, 2021-06-21 10:15:00 AM, [address] [place] [address], , [place], [address], Provider Name:Alicia Edmondson, 2021-08-03 01:00:00 PM, [address] [place] [address], , [place], [address], Provider Name:Zaina Hernández, 02:00:00 PM, [address] [place] [address] , [place], [address], Insurance Providers Payer Name Payer Address Payer Phone Insured Name Patient Relati onship to Insured Coverage Start Date Coverage End Date MEDICAID [employer] [address] [facility] [id number] N[place]UM MEDICARE Part A and B [address] [facility] [id number] NIGEL ROSENBAUM self
--- OUTSIDE RECORDS SUMMARY | 2021-06-18 07:33 | CCD ---
Author Author [facility] Organization [facility] Address Unknown Phone Unavailable Care Team Providers Care Spiral Runner Name Role Phone Zaina Hernández Unavailable PROBLEMS Type Condition ICD9-CM Code QYM26-PO Code Onset Dates Condition S tatus W/U Status Risk SNOMED Code Notes Problem Gastroesophageal reflux disease, esophagitis pre sence not specified K21.9 Active confirmed 010182871 Problem Allergic rhinitis, unspecified seasonality, unspecifie d trigger J30.9 Active confirmed 46936520 Problem Hypothyroidism, unspecified type E03.9 Active conf irmed 80713984 Problem BMI 40.0-44.9, adult Z68.41 Active confirmed 232566014 Problem Pain in right knee M25.561 Active confirmed 59117165 Problem Other chronic pain G89.29 Active confirmed 8 1870580 Problem Mixed hyperlipidemia E78.2 Active confirmed 247249407 Problem Tongue pain K14.6 Active confirmed 79369985 Problem Schizoaffective disorder, depressive type F25.1 Active confirmed 49790794 Problem Essential hypertension I10 Active confirmed 31386697 Problem Schizoaffective disorder, unspecified type F25.9 Active confirmed 80404457 Problem Leg edema R60.0 Active confirmed 669616969 Problem Sleep apnea in adult G47.30 Active confirmed 28956115 Problem Depression, unspecified depression type F32.9 Active confirmed 87996748 Problem Vitamin D deficiency E55.9 Active confirmed 68851300 ALLERGIES Allergen (clinical drug ingredient) Drug/Non Drug Allergy do cumented on EMR Reaction Allergy Type Onset Date Status trifluoperazine Trifluoperazine Unknown Drug Allergy Ac tive stelazine hyperactive Non Drug Allergy Active Thorazine passes out/or paces back and forth Drug Allergy Active zolpidem Zolpidem Unknown Drug Allergy Active bupropion BuPROPion HCl([facility] Code:[address]-83) Unknown Drug Jadon rgy Active Haldol Unknown Drug Allergy Active doxepin Doxepin HCl([facility] Code:[address]-82) Unknown Drug Allerg y Active nitrofurantoin Nitrofurantoin([facility] Code:[address]-33) Unknown Drug Allergy Active chlorpromazine ChlorproMAZINE Unknown Drug Allergy Acti ve hydroxyzine HydrOXYzine HCl([facility] Code:[address]-14) Unknown Drug A llergy Active zolpidem Ambien([facility] Code:[address]-52) Unknown Drug Allergy Active ENCOUNTERS from 1960 to 2021-06-07 Encounter Location Date Provider Diagnosis [facility] [address] [facility] [phone] [place] [address] 11 May, 2021 Zaina Servage IMMUNIZATIONS Vaccine Route Administration Date [...] Education Language: Question Answer Notes Languages spoken: German Amish: Question Answer Notes Amish 99 Other Mennonite Sexual Hx: Question Answer [...] 1 Orally daily for 30 Days Active SEROquel 200 MG 1 tab Orally before bedtime Active SEROquel 25 mg 1 tab Orally at 8am and 2 pm Active Cranberry 400 MG as directed Orally bid on discharge 05/10/21 Active Synthroid 0.05 mg 1 tab(s) Orally daily Active Rolling Walker 1 with seat, basket and brakes DX: CodeM25.561 daily for 1825 days FAX TO [facility] Jun, Active [place] Carbonate 300 MG 1 capsule at bedtime Orally every morning for mood stabization Apr, Active Omeprazole 40 MG TAKE ONE CAPSULE BY MOUTH @8AM for Active Artificial Tear Active Lidocaine Viscous HCl 2 % USE 15 MILLILITERS BY MOUTH FOUR TIMES DAILY NEEDED for 5 Active Ciclopirox Olamine 0.77 % 1 application Externally daily to toenails on discharge from [facility] 05/10/21 Active Calcium 600 + D 600-400 MG-UNIT 1 tablet Orally twice a day for 30 da ys Active [place] Carbonate 300 MG 2 Orally at bedtime dose change on [facility] discharge 05/10/21 Active Hydrochlorothiazide 12.5 MG TAKE ONE TABLET BY MOUTH @8AM for 28 Active Fexofenadine HCl 180 MG TAKE ONE TABLET BY MOUTH @8AM Active amLODIPine Besylate 5 MG 1 tablet Orally Once a day for 30 day(s ) Apr, Active Fluocinonide 0.05 % 1 application Externally Twice a day for 14 days May, Active Triamcinolone Acetonide 0.1 % 1 application topically Twice a day to rash for 14 days May, Active PROCEDURES No Information RESULTS No Results REASON FOR VISIT 2014 form MEDICAL (GENERAL) HISTORY Type Description Date Medical History Schizoaffective disorder fol [facility] Medical History Depression Medical History Hypothyroidism Medical [...] day to rash for 14 days May, Multivitamin - TAKE ONE TABLET BY MOUTH @8AM for 26 Omeprazole 40 MG TAKE ONE CAPSULE BY MOUTH @8AM for 26 Aspirin Low Dose 81 MG TAKE ONE TABLET BY MOUTH @8AM for 26 Next Appt Details Provider Name:Lili Ramirez, 2021-06-21 10:15:00 AM, [address] [place] [address], , [place], [address] Provider Name:Alicia Edmondson, 2021-06-23 01:00:00 PM, [address] [place] [address] , [place], [address], Provider Name:Zaina Hernández, 02:00:00 PM, [address] [place] [address] , [place], [address], Insurance Providers Payer Name Payer Address Payer Phone Insured Name Patient Relati onship to Insured Coverage Start Date Coverage End Date MEDICARE Part A and B [address] [facility] [address] [phone] NIGEL ROSENBAUM self MEDICAID [employer] [address] [facility] [id number] NIGEL ROSENBAUM self
--- OUTSIDE RECORDS SUMMARY | 2021-06-18 07:33 | CCD ---
Author Author [facility] Organization [facility] Address Unknown Phone Unavailable Care Team Providers Care Doctor Chiropractic Name Role Phone Zaina Hernández Unavailable PROBLEMS Type Condition ICD9-CM Code ZBO46-YR Code Onset Dates Condition S tatus W/U Status Risk SNOMED Code Notes Problem Gastroesophageal reflux disease, esophagitis pre sence not specified K21.9 Active confirmed 759020122 Problem Allergic rhinitis, unspecified seasonality, unspecifie d trigger J30.9 Active confirmed 18347115 Problem Hypothyroidism, unspecified type E03.9 Active conf irmed 96289992 Problem BMI 40.0-44.9, adult Z68.41 Active confirmed 973521396 Problem Pain in right knee M25.561 Active confirmed 90531941 Problem Other chronic pain G89.29 Active confirmed 8 5223860 Problem Mixed hyperlipidemia E78.2 Active confirmed 169445974 Problem Tongue pain K14.6 Active confirmed 15404033 Problem Schizoaffective disorder, depressive type F25.1 Active confirmed 90822488 Problem Essential hypertension I10 Active confirmed 35999736 Problem Schizoaffective disorder, unspecified type F25.9 Active confirmed 51151397 Problem Leg edema R60.0 Active confirmed 587729784 Problem Sleep apnea in adult G47.30 Active confirmed 10352943 Problem Depression, unspecified depression type F32.9 Active confirmed 28341227 Problem Vitamin D deficiency E55.9 Active confirmed 88234624 ALLERGIES Allergen (clinical drug ingredient) Drug/Non Drug Allergy do cumented on EMR Reaction Allergy Type Onset Date Status trifluoperazine Trifluoperazine Unknown Drug Allergy Ac tive stelazine hyperactive Non Drug Allergy Active Thorazine passes out/or paces back and forth Drug Allergy Active zolpidem Zolpidem Unknown Drug Allergy Active bupropion BuPROPion HCl([facility] Code:[address]-82) Unknown Drug Jadon rgy Active Haldol Unknown Drug Allergy Active doxepin Doxepin HCl([facility] Code:[address]-56) Unknown Drug Allerg y Active nitrofurantoin Nitrofurantoin([facility] Code:[address]-00) Unknown Drug Allergy Active chlorpromazine ChlorproMAZINE Unknown Drug Allergy Acti ve hydroxyzine HydrOXYzine HCl([facility] Code:[address]-65) Unknown Drug A llergy Active zolpidem Ambien([facility] Code:[address]-32) Unknown Drug Allergy Active ENCOUNTERS from 1960 to 2021-06-16 Encounter Location Date Provider Diagnosis [facility] [address] [facility] [phone] [place] [address] May, Zaina Servage Allergic rhinitis, unspecifi ed seasonality, unspecified trigger J30.9 IMMUNIZATIONS Vaccine Route Administration Date Status Influenza [...] Education Language: Question Answer Notes Languages spoken: Kosovan Shinto: Question Answer Notes Shinto 99 Other Mennonite Sexual Hx: Question Answer [...] Notes Start Da te End Date Status Latanoprost 0.005 % 1 drop into affected eye in the evening Ophthalmic Once a day Active Multivitamin - TAKE ONE TABLET BY MOUTH @8AM for 26 Active Hydroxychloroquine 200 mg 1 cap po twice daily Active Mupirocin 2 % APPLY TOPICALLY THREE TIMES DAILY EXTERNALLY DIRECTED for 10 Active Multivitamins 1 Orally daily for 30 Days Active Timolol Maleate 0.25 % 1 drop into affected eye Ophthalmic Once a day Active Aspirin Low Dose 81 MG TAKE ONE TABLET BY MOUTH @8AM for 26 Active Artificial Tear Active Omeprazole 40 MG TAKE ONE CAPSULE BY MOUTH @8AM for 26 Active SEROquel 200 MG 1 tab Orally before bedtime Active Ciclopirox Olamine 0.77 % 1 application Externally daily to toenails on discharge from [facility] 05/10/21 Active Calcium 600 + D 600-400 MG-UNIT 1 tablet Orally twice a day for 30 da ys Active Fexofenadine HCl 180 MG 1 tablet orally Daily at 8AM for 30 Days Active [place] Carbonate 300 MG 2 Orally at bedtime dose change on [facility] discharge 05/10/21 Active Synthroid 0.05 mg 1 tab(s) Orally daily Active Rolling Walker 1 with seat, basket and brakes DX: CodeM25.561 daily for 1825 days FAX TO [facility] Jun, Active Lidocaine Viscous HCl 2 % USE 15 MILLILITERS BY MOUTH FOUR TIMES DAILY NEEDED for 5 Active [place] Carbonate 300 MG 1 capsule at bedtime Orally every morning for mood stabization Apr, Active DOK 100 MG TAKE TWO CAPSULES BY MOUTH @8AM for 28 Active SEROquel 25 mg 1 tab Orally [...] Information RESULTS No Results REASON FOR VISIT refill-abdulaziz MEDICAL (GENERAL) HISTORY Type Description Date Medical History Schizoaffective disorder [facility] Medical History Depression Medical History Hypothyroidism Medical [...] No Information FUNCTIONAL STATUS No Information ASSESSMENTS Encounter Date Diagnosis Assessment Notes Treatment Notes Treatm ent Clinical Notes May, Allergic rhinitis, unspecifi ed seasonality, unspecified trigger (ICD-10 - J30.9) PLAN OF TREATMENT Medication Medication Name Sig Start Date Stop Date Fluocinonide 0.05 % 1 application Externally Twice a day for 14 days May, Triamcinolone Acetonide 0.1 % 1 application topically Twice a day to rash for 14 days May, Fexofenadine HCl 180 MG 1 tablet orally Daily at 8AM for 30 Days Omeprazole 40 MG TAKE ONE CAPSULE BY MOUTH @8AM for 26 Aspirin Low Dose 81 MG TAKE ONE TABLET BY MOUTH @8AM for 26 Multivitamin - TAKE ONE TABLET BY MOUTH @8AM for 26 Next Appt Details Provider Name:Lili Ramirez, 2021-06-21 10:15:00 AM, [address] [facility], , [place], [address], Provider Name:Alicia Edmondson, 2021-08-03 01:00:00 PM, [address] [facility], , [place], [address], Provider Name:Zaina Hernández, 02:00:00 PM, [address] [facility], , [place], [address], Insurance Providers Payer Name Payer Address Payer Phone Insured Name Patient Relati onship to Insured Coverage Start Date Coverage End Date MEDICAID [employer] [address] [facility] [id number] [phone] NIGEL ROSENBAUM MEDICARE Part A and B [address] [facility] [id number] [phone] NIGEL ROSENBAUM
--- OUTSIDE RECORDS SUMMARY | 2021-06-18 07:33 | CCD ---
Author Author Tati Ghosh Organization Unknown Address [address] [place] [address] Phone Care Team Providers Care Glass Cut Off Tender Name Role Phone Elizabeth Ghosh PCP Allergies, Adverse Reactions, Alerts No Data in Section Problem List Concept Problem Description Status Start Date Created Date Resolv ed Date Snomed Code F25.0 Schizoaffective Disorder, Bipolar type Active 07/13/2015 07/13/2015 F41.1 Generalized Anxiety Disorder Active 07/13/2015 07/13/2015 Medications Rx Norm Medication Route Route Concept Start Date Stop Date Dosage Niraj quency Duration Formula Strength Dosage Form Dosage Form Code Dosage Description Medication Id Account Npid Author First Name Author Last Name Taxonomy Code Taxonomy Desc Phone Number [phone] Zoloft by mouth [id number] 03/29/2021 07/13/2021 every morning 30 100 mg tablet 70752 737880 [id number] Kemi Graff [id number] P sychiatric/Mental Health [id number] 325608 quetiapine by mouth [id number] 05/13/2021 08/11/2021 twice a day 30 50 mg tablet 12113 714966 [id number] Kemi Graff [id number] P sychiatric/Mental Health [id number] 708678 quetiapine by mouth [id number] 05/13/2021 08/11/2021 at bedtime 30 200 mg tablet extended release 24 hr 52283 454000 [id number] Kemi Graff [id number] Psychiatric/Mental Health [id number] 279370 lithium carbonate by mouth [id number] 05/13/2021 07/12/2021 once a day 30 300 mg tablet 28090 333658 [id number] Kemi Graff [id number] Psychiatric/Mental Health [id number] 807330 Zoloft by mouth [id number] 09/04/2019 every morning 50 [place] 94741 018863 [id number] Kemi Garff [id number] Psychiatric/Mental Health [id number] Social History Social History Element Description Concept Effective Date Smoking Status Unknown if ever smoked 014662454 81194393 Immunizations No Data in Section Vital Signs No Data in Section Procedures Date Concept Id Description Targeted Site Concept Targeted Site Concept Type 06/11/2021 57590 Extended Individual Psychotherapy - 45 min CPT Patient has no history of implantable de vices Encounters Encounter Start Date End Date Encounter Type Description Diagnosis Di agnosis Desc Location Author First Name Author Last Name Npid Taxonomy Cod e Taxonomy Desc Phone Number Location Addr1 Location Addr2 Location City Location Sta te Location Zip [id number] 06/11/2021 06/11/2021 97450 Extended Individual Psych otherapy - 45 min F25.0 Schizoaffective disorder, bipolartype [facility] Elizabeth [id number] Veneer Sample Maker [id number] [address] [address] Plan of Treatment No Data in Section Lab Results No Data in Section Instructions No Data in Section Insurance Providers Insurance Id Policy Effective Date Policy Thru Date Company N edny [id number] 1993 MEDICARE [id number] 2016 MEDICAID
--- OUTSIDE RECORDS SUMMARY | 2021-06-18 07:33 | CCD ---
Author Author Tati Graff Organization Unknown Address [address] [place] [address] Phone Care Team Providers Care Automotive Maintenance Technician Name Role Phone InnaKemi jade PCP Allergies, Adverse Reactions, Alerts No Data [...] Name Taxonomy Code Taxonomy Desc Phone Number [phone] Zoloft by mouth [id number] 09/04/2019 every morning 50 [place] [address] 360395 [phone] Kemi Dajuan [id number] Psychiatric/Mental Health [id number] 555303 quetiapine by mouth [id number] 05/13/2021 08/11/2021 at bedtime 30 200 mg tablet extended release 24 hr 94247 [id number] Kemi Dajuan [id number] Psychiatric/Mental Health [id number] 870953 quetiapine by mouth [id number] 05/13/2021 08/11/2021 twice a day 30 50 mg tablet 44542 968257 [id number] Kemi Graff [id number] P sychiatric/Mental Health [id number] 177239 Zoloft by mouth [id number] 03/29/2021 09/14/2021 every morning 30 100 mg tablet 95766 972134 [id number] Kemi Dajuan [id number] P sychiatric/Mental Health [id number] 922065 lithium carbonate by mouth [id number] 05/13/2021 09/14/2021 once a day 30 300 mg tablet 49148 596658 [id number] Kemi Graff [id number] Psychiatric/Mental Health [id number] Social History Social History Element Description Concept Effective Date Smoking Status Unknown if ever smoked 618440420 95760567 Immunizations No Data in Section Vital Signs No Data in Section Procedures Date Concept Id Description Targeted Site Concept Targeted Site Concept Type 06/16/2021 54424-03 [facility] Telemed E/M Lvl 3--Est pt CPT Patient has no history of implantable de vices Encounters Encounter Start Date End Date Encounter Type Description Diagnosis Di agnosis Desc Location Author First Name Author Last Name Npid Taxonomy Cod e Taxonomy Desc Phone Number Location Addr1 Location Addr2 Location [facility] Location Sta te Location Zip [id number] 06/16/2021 06/16/2021 99265-05 MHC Telemed E/M Lvl 3--Est p t F25.0 [facility], [facility] [id number] Psychiatric/Mental Health [id number] [address] [address] Plan of Treatment No Data in Section Lab Results No Data in Section Instructions No Data in Section Functional Cognitive Status No Data in Section Insurance Providers Insurance Id Policy Effective Date Policy Thru Date Paulino Garcia ame [id number] 1993 MEDICARE [id number] 2016 MEDICAID
--- OUTSIDE RECORDS SUMMARY | 2021-06-18 07:33 | CCD ---
Author Author [facility] Organization [facility] Address Unknown Phone Unavailable Care Team Providers Care Armed Guard Name Role Phone Zaina Hernández Unavailable PROBLEMS Type Condition ICD9-CM Code DWY80-WK Code Onset Dates Condition S tatus W/U Status Risk SNOMED Code Notes Problem Gastroesophageal reflux disease, esophagitis pre sence not specified K21.9 Active confirmed 527789460 Problem Allergic rhinitis, unspecified seasonality, unspecifie d trigger J30.9 Active confirmed 28510468 Problem Hypothyroidism, unspecified type E03.9 Active conf irmed 39769148 Problem BMI 40.0-44.9, adult Z68.41 Active confirmed 348215431 Problem Pain in right knee M25.561 Active confirmed 56738669 Problem Other chronic pain G89.29 Active confirmed 8 3886855 Problem Mixed hyperlipidemia E78.2 Active confirmed 415589769 Problem Tongue pain K14.6 Active confirmed 51748085 Problem Schizoaffective disorder, depressive type F25.1 Active confirmed 98226875 Problem Essential hypertension I10 Active confirmed 79611575 Problem Schizoaffective disorder, unspecified type F25.9 Active confirmed 97763973 Problem Leg edema R60.0 Active confirmed 589508232 Problem Sleep apnea in adult G47.30 Active confirmed 60659319 Problem Depression, unspecified depression type F32.9 Active confirmed 48669297 Problem Vitamin D deficiency E55.9 Active confirmed 72759333 ALLERGIES Allergen (clinical drug ingredient) Drug/Non Drug Allergy do cumented on EMR Reaction Allergy Type Onset Date Status trifluoperazine Trifluoperazine Unknown Drug Allergy Ac tive stelazine hyperactive Non Drug Allergy Active Thorazine passes out/or paces back and forth Drug Allergy Active zolpidem Zolpidem Unknown Drug Allergy Active bupropion BuPROPion HCl([facility] Code:[address]-13) Unknown Drug Jadon rgy Active Haldol Unknown Drug Allergy Active doxepin Doxepin HCl([facility] Code:[address]-37) Unknown Drug Allerg y Active nitrofurantoin Nitrofurantoin([facility] Code:[address]-61) Unknown Drug Allergy Active chlorpromazine ChlorproMAZINE Unknown Drug Allergy Acti ve hydroxyzine HydrOXYzine HCl([facility] Code:[address]-47) Unknown Drug A llergy Active zolpidem Ambien([facility] Code:[address]-70) Unknown Drug Allergy Active ENCOUNTERS from 1960 to 2021-06-16 Encounter Location Date Provider Diagnosis [facility] [address] [facility] [phone] [place] [address] May, Zaina Servage IMMUNIZATIONS Vaccine Route Administration [...] Education Language: Question Answer Notes Languages spoken: Mongolian Bahai: Question Answer Notes Bahai 99 Other Mennonite Sexual Hx: Question Answer [...] Externally daily to toenails on discharge from [facility] 05/10/21 Active Calcium 600 + D 600-400 MG-UNIT 1 tablet Orally twice a day for 30 da ys Active Rolling Walker 1 with seat, basket and brakes DX: CodeM25.561 daily for 1825 days FAX TO [facility] Jun, Active [place] Carbonate 300 MG 2 Orally at bedtime dose change on [facility] discharge 05/10/21 Active Synthroid 0.05 mg 1 tab(s) Orally daily Active Artificial Tear Active Fexofenadine HCl 180 MG 1 tablet orally Daily at 8AM for 30 Days Active [place] Carbonate 300 MG 1 capsule at bedtime [...] Information RESULTS No Results REASON FOR VISIT thrush MEDICAL (GENERAL) HISTORY Type Description Date Medical History Schizoaffective disorder [facility] Medical History Depression Medical History Hypothyroidism Medical [...] Details Provider Name:Lili Ramirez, 2021-06-21 10:15:00 AM, [address] [place] [address], , [place], [address], Provider Name:Alicia Edmondson, 2021-08-03 01:00:00 PM, [address] [place] [address], , [place], [address], Provider Name:Zaina Hernández, 02:00:00 PM, [address] [place] [address] , [place], [address], Insurance Providers Payer Name Payer Address Payer Phone Insured Name Patient Relati onship to Insured Coverage Start Date Coverage End Date MEDICAID [employer] [address] [facility] [id number] NIGEL ROSENBAUM MEDICARE Part A and B [address] [facility] [address] NIGEL ROSENBAUM self
--- OUTSIDE RECORDS SUMMARY | 2021-06-18 07:33 | CCD ---
Author Author Tati Graff Organization Unknown Address [address] [place] [place] [address] Phone Care Team Providers Care Catering Sales Manager Name Role Phone Innakalie Kemi PCP Allergies, Adverse Reactions, Alerts No Data [...] Name Taxonomy Code Taxonomy Desc Phone Number [phone] Zoloft by mouth [id number] 09/04/2019 every morning 50 [place] [address] 792218 [id number] Kemi Dajuan [id number] Psychiatric/Mental Health [phone] 664285 lithium carbonate by mouth [id number] 03/29/2021 07/13/2021 at bedt higinio 30 300 mg tablet 03649 308050 [id number] Kemi Dajuan [id number] Psychiatric/Mental Health [id number] 101343 Zoloft by mouth U35529 03/29/2021 07/13/2021 every morning 30 100 mg tablet 76735 927941 [id number] Kemi Dajuan [id number] P sychiatric/Mental Health [id number] 232557 quetiapine by mouth [id number] 03/29/2021 07/13/2021 at bedtime 30 400 mg tablet extended release 24 hr 68098 364583 [id number] Kemi Dajuan [id number] Psychiatric/Mental Health [id number] 805162 quetiapine by mouth [id number] 03/29/2021 07/18/2021 twice a day 30 25 mg tablet 15702 910328 [id number] Luciana Byrd [id number] Nurse Jabier cortes [id number] Social History Social History Element Description Concept Effective Date Smoking Status Unknown if ever smoked 490431220 07171244 Immunizations No Data in Section Vital Signs No Data in Section Procedures Date Concept Id Description Targeted Site Concept Targeted Site Concept Type 04/28/2021 73955-95 [facility] Telemed E/M Lvl 3--Est pt CPT 04/28/2021 33121-83 Telemed A/O 30" CPT Patient has no history of implantable de vices Encounters Encounter Start Date End Date Encounter Type Description Diagnosis Di agnosis Desc Location Author First Name Author Last Name Npid Taxonomy Cod e Taxonomy Desc Phone Number Location Addr1 Location Addr2 Location [facility] Location Sta te Location [facility] [id number] 04/28/2021 04/28/2021 56349-81 MHC Telemed E/M Lvl 3--Est p t F25.0 Schizoaffective disorder, bipolartype [facility] [id number] Psychiatric/Mental Health [id number] [address] [address] Plan of Treatment No Data in Section Lab Results No Data in Section Instructions No Data in Section Functional Cognitive Status No Data in Section Insurance Providers Insurance Id Policy Effective Date Policy Thru Date Paulino Garcia ame [id number] 1993 MEDICARE [id number] 2016 MEDICAID
--- OUTSIDE RECORDS SUMMARY | 2021-06-18 07:33 | CCD ---
Author Author Tati Graff Organization Unknown Address [address] [place] [address] Phone Care Team Providers Care Asian Art Curator Name Role Phone Innakalie Kemi PCP Allergies, [...] Name Taxonomy Code Taxonomy Desc Phone Number [phone] Zoloft by mouth [id number] 09/04/2019 every morning 50 [place] 13833 [id number] Kemi Graff [id number] Psychiatric/Mental Health [phone] [id number] lithium carbonate by mouth [id number] 03/29/2021 07/13/2021 at bedt higinio 30 300 mg tablet 99608 [id number] Kemi Graff [id number] Psychiatric/Mental Health [phone] 387711 quetiapine by mouth [id number] 03/29/2021 07/13/2021 twice a day 30 25 mg tablet 16397 [id number] Kemi HackettTyshawnkalie [id number] P sychiatric/Mental Health [phone] [id number] Zoloft by mouth [id number] 03/29/2021 07/13/2021 every morning 30 100 mg tablet 53037 098235 [id number] Kemi Hackett [id number] P sychiatric/Mental Health [id number] 673895 quetiapine by mouth [id number] 03/29/2021 07/13/2021 at bedtime 30 400 mg tablet extended release 24 hr 58638 [id number] Kemi Graff [id number] Psychiatric/Mental Health [id number] Social History Social History Element Description Concept Effective Date Smoking Status Unknown if ever smoked [id number] Immunizations No Data in Section Vital Signs No Data in Section Procedures Date Concept Id Description Targeted Site Concept Targeted Site Concept Type 04/14/2021 46439-70 [facility] Telemed E/M Lvl 3--Est pt CPT Patient has no history of implantable de vices Encounters Encounter Start Date End Date Encounter Type Description Diagnosis Di agnosis Desc Location Author First Name Author Last Name Npid Taxonomy Cod e Taxonomy Desc Phone Number Location Addr1 Location Addr2 Location [facility] Location Sta te Location Zip [id number] 04/14/2021 04/14/2021 14528-54 MHC Telemed E/M Lvl 3--Est p t F25.0 Schizoaffective disorder, bipolartype [facility] Kemi [id number] Psychiatric/Mental Health [phone] [address] [address] Plan of Treatment No Data in Section Lab Results No Data in Section Instructions No Data in Section Functional Cognitive Status No Data in Section Insurance Providers Insurance Id Policy Effective Date Policy Thru Date Paulino Garcia ame [id number] 1993 MEDICARE [id number] 2016 MEDICAID
--- OUTSIDE RECORDS SUMMARY | 2021-06-18 07:33 | CCD ---
Author Author [facility] Organization [facility] Address Unknown Phone Unavailable Care Team Providers Care Architecture Professor Name Role Phone Zaina Hernández Unavailable PROBLEMS Type Condition ICD9-CM Code FNM41-PM Code Onset Dates Condition S tatus W/U Status Risk SNOMED Code Notes Problem Gastroesophageal reflux disease, esophagitis pre sence not specified K21.9 Active confirmed 378403189 Problem Allergic rhinitis, unspecified seasonality, unspecifie d trigger J30.9 Active confirmed 32334278 Problem Schizoaffective disorder, unspecified type F25.9 Active confirmed 76915241 Problem Schizoaffective disorder, depressive type F25.1 Active confirmed 79869254 Problem Pain in right knee M25.561 Active confirmed 21890039 Problem Depression, unspecified depression type F32.9 Active confirmed 55755914 Problem Hypothyroidism, unspecified type E03.9 Active conf irmed 46875151 Problem Vitamin D deficiency E55.9 Active confirmed 72594601 Problem BMI 40.0-44.9, adult Z68.41 Active confirmed 222234487 Problem Other chronic pain G89.29 Active confirmed 8 5787765 Problem Mixed hyperlipidemia E78.2 Active confirmed 687318938 Problem Leg edema R60.0 Active confirmed 387057808 Problem Sleep apnea in adult G47.30 Active confirmed 55382742 ALLERGIES Allergen (clinical drug ingredient) Drug/Non Drug Allergy do cumented on EMR Reaction Allergy Type Onset Date Status doxepin Doxepin HCl(NDC Code:[address]-41) Unknown Drug Allerg y Active nitrofurantoin Nitrofurantoin(ND Code:[address]-32) Unknown Drug Allergy Active stelazine hyperactive Non Drug Allergy Active chlorpromazine ChlorproMAZINE Unknown Drug Allergy Acti ve hydroxyzine HydrOXYzine HCl([facility] Code:[address]-40) Unknown Drug A llergy Active bupropion BuPROPion HCl([facility] Code:[address]-17) Unknown Drug Jadon rgy Active Haldol Unknown Drug Allergy Active zolpidem Ambien([facility] Code:[address]-89) Unknown Drug Allergy Active Thorazine passes out/or paces back and forth Drug Allergy Active ENCOUNTERS from 1960 to 2021-05-18 Encounter Location Date Provider Diagnosis [facility] [address] [facility] [phone] [place] [address] 14 Apr, 2021 Zaina Servage IMMUNIZATIONS Vaccine Route Administration [...] Education Language: Question Answer Notes Languages spoken: Mauritanian Episcopal: Question Answer Notes Episcopal 99 Other Mennonite Sexual Hx: Question Answer [...] Notes Start Da te End Date Status SEROquel 200 MG 1 tab Orally before bedtime Active Calcium 600 + D 600-400 MG-UNIT 1 tablet Orally twice a day for 30 da ys Active Synthroid 50 MCG 1 tab(s) Orally daily Active Artificial Tear Active Lidocaine Viscous HCl 2 % 15 ml as needed Mouth/Throat qid for 5 day(s) Mar, Active Zoloft 100 MG 1 tablet Orally Once a day changed from 150mg on discharge 05/10 13 Apr, 2021 Active Fexofenadine HCl 180 MG TAKE ONE TABLET BY MOUTH @8AM Active Tylenol 325 MG 1-2 tablets Orally every 4-6 hours as needed for pain for 30 Days Unknown DOK 100 MG TAKE TWO CAPSULES BY MOUTH @8AM for 28 Active Hydrochlorothiazide 12.5 MG TAKE ONE TABLET BY MOUTH @8AM for 28 Active Triamcinolone Acetonide 55 MCG/ACT 1 spray in each nostril Nasal ly Once a day Nov, Unknown Hydroxychloroquine 200 mg 1 cap po twice daily Active Lac-Hydrin 12 % 1 application to affected area Externally daily to fe et Unknown Rolling Walker 1 with seat, basket and brakes DX: CodeM25.561 daily for 1825 days FAX TO [facility] Jun, Active amLODIPine Besylate 5 MG 1 tablet Orally Once a day for 30 day(s ) Apr, Active [place] Carbonate 300 MG 1 capsule at bedtime Orally every morning for mood stabization Apr, Active Timolol Maleate 0.25 % 1 drop into affected eye Ophthalmic Once a day Active [facility] Allergy 180 MG 1 tablet as needed Orally Once a day Unknown Nystatin Powder 231186 UNIT/GM as directed Externally daily for 30 da ys Unknown [place] Carbonate 300 MG 2 Orally at bedtime dose change on [facility] discharge 05/10/21 Active Voltaren 1 % as directed Externally as needed Unknown Aspir-81 81 MG 1 tablet Orally Once a day for 30 Days Active Latanoprost 0.005 % 1 drop into affected eye in the evening Ophthalmic Once a day Active Amlodipine Besylate 5 MG 1 tablet Orally Once a day for 30 day(s ) Apr, Active SEROquel 25 mg 1 tab Orally at 8am and 2 pm Active Omeprazole 40 MG 1 capsule Orally Once a day Active Ciclopirox Olamine 0.77 % 1 application Externally daily to toenails on discharge [facility] 05/10/21 Active Cranberry 400 MG as directed Orally bid on discharge 05/10/21 Active Mupirocin 2 % 1 application Externally Three times a day for 5 Unknown Multivitamins 1 Orally daily for 30 Days Active Melatonin 5 MG 1 tablet at bedtime as neede d with food Orally Once a day for 30 day(s) Unknown PROCEDURES No Information RESULTS No Results REASON FOR VISIT [facility] MEDICAL (GENERAL) HISTORY Type Description Date Medical History Schizoaffective disorder [facility] Medical History Depression Medical History Hypothyroidism Medical [...] hemorrhoids, 10 yr follow u p 09/02/14 Goals Section No Information Health Concerns No Information MEDICAL EQUIPMENT No Information MENTAL STATUS No Information FUNCTIONAL STATUS No Information ASSESSMENTS No Information PLAN OF TREATMENT Medication Medication Name Sig Start Date Stop Date Amlodipine Besylate 5 MG 1 tablet Orally Once a day for 30 day(s ) Apr, Next Appt Details Provider Name:Zaina Hernández, 11:00:00 AM, [address] [place] [address] , [place], [address], Provider Name:Lili Ramirez, 2021-06-21 10:15:00 AM, [address] [facility], , [place], [address], Provider Name:Alicia Edmondson, 2021-06-23 01:00:00 PM, [address] [place] [address] , [place], [address], Provider Name:Zaina Hernández, 02:00:00 PM, [address] [place] [address] , [place], [address], Insurance Providers Payer Name Payer Address Payer Phone Insured Name Patient Relati onship to Insured Coverage Start Date Coverage End Date MEDICARE Part A and B [address] [facility] [address] NIGEL ROSENBAUM MEDICAID [employer] [address] [facility] [address] NIGEL ROSENBAUM
--- OUTSIDE RECORDS SUMMARY | 2021-06-18 07:33 | CCD ---
Author Author [facility] Organization [facility] Address Unknown Phone Unavailable Care Team Providers Care Varnish Filterer Name Role Phone Cecy Uribe Unavailable PROBLEMS Type Condition ICD9-CM Code IIA61-AU Code Onset Dates Condition S tatus W/U Status Risk SNOMED Code Notes Problem Gastroesophageal reflux disease, esophagitis pre sence not specified K21.9 Active confirmed 448237166 Problem Allergic rhinitis, unspecified seasonality, unspecifie d trigger J30.9 Active confirmed 08972178 Problem Schizoaffective disorder, unspecified type F25.9 Active confirmed 08261045 Problem Schizoaffective disorder, depressive type F25.1 Active confirmed 73415424 Problem Pain in right knee M25.561 Active confirmed 08364951 Problem Depression, unspecified depression type F32.9 Active confirmed 95702063 Problem Hypothyroidism, unspecified type E03.9 Active conf irmed 30046344 Problem Vitamin D deficiency E55.9 Active confirmed 76414082 Problem BMI 40.0-44.9, adult Z68.41 Active confirmed 506819420 Problem Other chronic pain G89.29 Active confirmed 8 0073072 Problem Mixed hyperlipidemia E78.2 Active confirmed 439629844 Problem Leg edema R60.0 Active confirmed 455237280 Problem Sleep apnea in adult G47.30 Active confirmed 88061312 ALLERGIES Allergen (clinical drug ingredient) Drug/Non Drug Allergy do cumented on EMR Reaction Allergy Type Onset Date Status doxepin Doxepin HCl(NDC Code:[address]-46) Unknown Drug Allerg y Active nitrofurantoin Nitrofurantoin(ND Code:[address]-01) Unknown Drug Allergy Active stelazine hyperactive Non Drug Allergy Active chlorpromazine ChlorproMAZINE Unknown Drug Allergy Acti ve hydroxyzine HydrOXYzine HCl([facility] Code:[address]-07) Unknown Drug A llergy Active bupropion BuPROPion HCl([facility] Code:[address]-95) Unknown Drug Jadon rgy Active Haldol Unknown Drug Allergy Active zolpidem Ambien([facility] Code:[address]-24) Unknown Drug Allergy Active Thorazine passes out/or paces back and forth Drug Allergy Active ENCOUNTERS from 1960 to 2021-04-28 Encounter Location Date Provider Diagnosis [facility] [address] [facility] [phone] [place] [address] Mar, Cecy Friasosajessicaj Aphthous ulcer of tongue K12 .0 IMMUNIZATIONS Vaccine Route Administration Date Status Influenza [...] Education Language: Question Answer Notes Languages spoken: Stateless Advent: Question Answer Notes Advent 99 Other Mennonite Sexual Hx: Question Answer [...] REASON FOR REFERRAL No Information VITAL SIGNS Weight 227 lbs Mar, Weight-kg 102.97 kg Mar, Height 63 1/2 in Mar, BMI 39.58 kg/m2 Mar, Heart Rate 76 /min Mar, Temperature 97.6 degrees Fahrenheit Mar, Oximetry 98 Mar, Blood pressure systolic 124 mm Hg Mar, Blood pressure diastolic 74 mm Hg Mar, MEDICATIONS Medication SIG (Take, Route, Frequency, Duration) Notes Start Da te End Date Status Tylenol 325 MG 1-2 tablets Orally every 4-6 hours as needed for pain for 30 Days Active Melatonin 5 MG 1 tablet at bedtime as neede d with food Orally Once a day for 30 day(s) Active Omeprazole 40 MG 1 capsule Orally Once a day Active Aspir-81 81 MG 1 tablet Orally Once a day for 30 Days Active Timolol Maleate 0.25 % 1 drop into affected eye Ophthalmic Once a day Active Voltaren 1 % as directed Externally as needed Active Mupirocin 2 % 1 application Externally Three times a day for 5 Not-Taking Hydroxychloroquine 200 mg 1 cap twice daily Active Lidocaine Viscous HCl 2 % 15 ml as needed Mouth/Throat qid for 5 day(s) Mar, Active Artificial Tear Active [place] Allergy 180 MG 1 tablet as needed Orally Once a day Active Synthroid 0.05 mg 1 tab(s) Orally daily for 30 days Active SEROquel 400 MG 1 tab orally before bedtime Active Fexofenadine HCl 180 MG TAKE ONE TABLET BY MOUTH @8AM Active Triamcinolone Acetonide 55 MCG/ACT 1 spray in each nostril Nasal ly Once a day Nov, Not-Taking Calcium 600 + D 600-400 MG-UNIT 1 tablet Orally twice a day for 30 da ys Active DOK 100 MG TAKE TWO CAPSULES BY MOUTH @8AM for 28 Active Amoxicillin 500 MG 4 tablet Orally one hour prior to dental procedu re for 1 Active Multivitamins 1 Orally daily for 30 Days Active SEROquel 25 mg 1 tab Orally at 8am and 2 pm Active Hydrochlorothiazide 12.5 MG TAKE ONE TABLET BY MOUTH @8AM for 28 Active Zoloft 100 MG 1.5 tabs Orally Once a day Active [facility] Carbonate 300 MG 4.5 caps Orally at bedtime Active Latanoprost 0.005 % 1 drop into affected eye in the evening Ophthalmic Once a day Active Lac-Hydrin 12 % 1 application to affected area Externally as needed Active Nystatin Powder 161688 UNIT/GM as directed Externally daily for 30 da ys Not-Taking Rolling Walker 1 with seat, basket and brakes DX: CodeM25.561 daily for 1825 days FAX TO [facility] Jun, Active PROCEDURES No Information RESULTS No Results REASON FOR VISIT [facility] Follow up MEDICAL (GENERAL) HISTORY Type Description Date Medical History Schizoaffective disorder [facility] Medical History Depression Medical History Hypothyroidism Medical [...] Notes Treatment Notes Treatm ent Clinical Notes Mar, Aphthous ulcer of tongue (ICD-10 - K12.0) topical analgesics Encouraged dietary B12 supplements PLAN OF TREATMENT Medication Medication Name Sig Start Date Stop Date Lidocaine Viscous HCl 2 % 15 ml as needed Mouth/Throat qid f or 5 day(s) Mar, Treatment Notes Assessment Notes Clinical Notes Aphthous ulcer of tongue topical analges icsEncouraged dietary B12 supplements Next Appt Details f/u with PCP Reason: Provider Name:Lili Ramirez, 2021-06-21 10:15:00 AM, [address] [facility], , [place], [address], Provider Name:Zaina Hernández, 02:00:00 PM, [address] [facility], , [place], [address], Insurance Providers Payer Name Payer Address Payer Phone Insured Name Patient Relati onship to Insured Coverage Start Date Coverage End Date MEDICARE Part A and B [address] [facility] [phone] NIGEL ROSENBAUM MEDICAID [employer] [address] [facility] [address] NIGEL ROSENBAUM self
--- OUTSIDE RECORDS SUMMARY | 2021-06-18 07:33 | CCD ---
Author Author [facility] Organization [facility] Address Unknown Phone Unavailable Care Team Providers Care Commercial Door Installer Name Role Phone Zaina Hernández Unavailable PROBLEMS Type Condition ICD9-CM Code YIA75-HA Code Onset Dates Condition S tatus W/U Status Risk SNOMED Code Notes Problem Gastroesophageal reflux disease, esophagitis pre sence not specified K21.9 Active confirmed 640888637 Problem Allergic rhinitis, unspecified seasonality, unspecifie d trigger J30.9 Active confirmed 31435971 Problem Schizoaffective disorder, unspecified type F25.9 Active confirmed 94807688 Problem Schizoaffective disorder, depressive type F25.1 Active confirmed 57729414 Problem Pain in right knee M25.561 Active confirmed 05766875 Problem Depression, unspecified depression type F32.9 Active confirmed 57731053 Problem Hypothyroidism, unspecified type E03.9 Active conf irmed 88402242 Problem Vitamin D deficiency E55.9 Active confirmed 31627815 Problem BMI 40.0-44.9, adult Z68.41 Active confirmed 330632497 Problem Other chronic pain G89.29 Active confirmed 8 6547709 Problem Mixed hyperlipidemia E78.2 Active confirmed 987749634 Problem Leg edema R60.0 Active confirmed 670139861 Problem Sleep apnea in adult G47.30 Active confirmed 78350563 ALLERGIES Allergen (clinical drug ingredient) Drug/Non Drug Allergy do cumented on EMR Reaction Allergy Type Onset Date Status doxepin Doxepin HCl(NDC Code:[address]-90) Unknown Drug Allerg y Active nitrofurantoin Nitrofurantoin(ND Code:[address]-18) Unknown Drug Allergy Active stelazine hyperactive Non Drug Allergy Active chlorpromazine ChlorproMAZINE Unknown Drug Allergy Acti ve hydroxyzine HydrOXYzine HCl([facility] Code:[address]-30) Unknown Drug A llergy Active bupropion BuPROPion HCl([facility] Code:[address]-97) Unknown Drug Jadon rgy Active Haldol Unknown Drug Allergy Active zolpidem Ambien([facility] Code:[address]-03) Unknown Drug Allergy Active Thorazine passes out/or paces back and forth Drug Allergy Active ENCOUNTERS from 1960 to 2021-05-05 Encounter Location Date Provider Diagnosis [facility] [address] [facility] [phone] [place] [address] Mar, Zaina Servage IMMUNIZATIONS Vaccine Route Administration Date [...] Education Language: Question Answer Notes Languages spoken: Slovak Mandaen: Question Answer Notes Mandaen 99 Other Mennonite Sexual Hx: Question Answer [...] 1.5 tabs Orally Once a day Active [place] Carbonate 300 MG 4.5 caps Orally at bedtime Active Latanoprost 0.005 % 1 drop into affected eye in the evening Ophthalmic Once a day Active Lac-Hydrin 12 % 1 application to affected area Externally as needed Active Nystatin Powder 765875 UNIT/GM as directed Externally daily for 30 da ys Not-Taking Rolling Walker 1 with seat, basket and brakes DX: CodeM25.561 daily for 1825 days FAX TO [facility] Jun, Active PROCEDURES No Information RESULTS No Results REASON FOR VISIT mouth sores MEDICAL (GENERAL) HISTORY Type Description Date Medical History Schizoaffective disorder [facility] Medical History Depression Medical History Hypothyroidism Medical History DVT 08/05-right leg Medical History Hiatal hernia Medical History gerd Medical History constipation Medical History allergies Medical History PMB with neg D&C 2014 Medical History Arthritis Medical History Vitamin d def-25.4, 12/04/18 Medical History Out of hospital DNR pg 05/20 old records Medical History Stress Test 6/24/16 LVEF 65% Medical History Sleep Apnea,uses CPAP [...] Mouth/Throat qid f or 5 day(s) Mar, Next Appt Details Provider Name:Lili Ramirez, 2021-06-21 10:15:00 AM, [address] [place] [address], , [place], [place], [facility] [phone] Provider Name:Zaina Hernández, 02:00:00 PM, [facility] [facility] [phone], [place], [address], Insurance Providers Payer Name Payer Address Payer Phone Insured Name Patient Relati onship to Insured Coverage Start Date Coverage End Date MEDICAID [employer] [address] [facility] [address] NIGEL ROSENBAUM MEDICARE Part A and B [address] [facility] [address] [phone] NIGEL ROSENBAUM
--- OUTSIDE RECORDS SUMMARY | 2021-06-18 07:33 | CCD ---
Author Author [facility] Organization [facility] Address Unknown Phone Unavailable Care Team Providers Care Machine Adjuster Name Role Phone Zaina Hernández Unavailable PROBLEMS Type Condition ICD9-CM Code [id number] Code Onset Dates Condition S tatus W/U Status Risk SNOMED Code Notes Problem Gastroesophageal reflux disease, esophagitis pre sence not specified K21.9 Active confirmed 160200730 Problem Allergic rhinitis, unspecified seasonality, unspecifie d trigger J30.9 Active confirmed 69627570 Problem Hypothyroidism, unspecified type E03.9 Active conf irmed 11851430 Problem BMI 40.0-44.9, adult Z68.41 Active confirmed 514979145 Problem Pain in right knee M25.561 Active confirmed 30538848 Problem Other chronic pain G89.29 Active confirmed 8 2935496 Problem Mixed hyperlipidemia E78.2 Active confirmed 712817591 Problem Tongue pain K14.6 Active confirmed 51341094 Problem Schizoaffective disorder, depressive type F25.1 Active confirmed 94155577 Problem Essential hypertension I10 Active confirmed 71909575 Problem Schizoaffective disorder, unspecified type F25.9 Active confirmed 92450341 Problem Leg edema R60.0 Active confirmed 718898520 Problem Sleep apnea in adult G47.30 Active confirmed 16687709 Problem Depression, unspecified depression type F32.9 Active confirmed 01115675 Problem Vitamin D deficiency E55.9 Active confirmed 47155774 ALLERGIES Allergen (clinical drug ingredient) Drug/Non Drug Allergy do cumented on EMR Reaction Allergy Type Onset Date Status trifluoperazine Trifluoperazine Unknown Drug Allergy Ac tive stelazine hyperactive Non Drug Allergy Active Thorazine passes out/or paces back and forth Drug Allergy Active zolpidem Zolpidem Unknown Drug Allergy Active bupropion BuPROPion HCl([facility] Code:[address]-23) Unknown Drug Jadon rgy Active Haldol Unknown Drug Allergy Active doxepin Doxepin HCl([facility] Code:[address]-03) Unknown Drug Allerg y Active nitrofurantoin Nitrofurantoin([facility] Code:[address]-20) Unknown Drug Allergy Active chlorpromazine ChlorproMAZINE Unknown Drug Allergy Acti ve hydroxyzine HydrOXYzine HCl([facility] Code:[address]-01) Unknown Drug A llergy Active zolpidem Ambien([facility] Code:[address]-10) Unknown Drug Allergy Active ENCOUNTERS from 1960 to 2021-06-04 Encounter Location Date Provider Diagnosis [facility] [address] [facility] [phone] [place] [address] May, Zaina Servage IMMUNIZATIONS Vaccine Route Administration [...] Education Language: Question Answer Notes Languages spoken: Ukrainian Mosque: Question Answer Notes Mosque 99 Other Mennonite Sexual Hx: Question Answer [...] Notes Start Da te End Date Status [place] Carbonate 300 MG 2 Orally at bedtime dose change on [facility] discharge 05/10/21 Active Synthroid 0.05 mg 1 tab(s) Orally daily Active Artificial Tear Active Omeprazole 40 MG 1 capsule Orally Once a day Active SEROquel 25 mg 1 tab Orally at 8am and 2 pm Active Latanoprost 0.005 % 1 drop into affected eye in the evening Ophthalmic Once a day Active Rolling Walker 1 with seat, basket and brakes DX: CodeM25.561 daily for 1825 days FAX TO [facility] Jun, Active DOK 100 MG TAKE TWO CAPSULES BY MOUTH @8AM for 28 Active Lidocaine Viscous HCl 2 % USE 15 MILLILITERS BY MOUTH FOUR TIMES DAILY NEEDED for 5 Active Fluocinonide 0.05 % 1 application Externally Twice a day for 14 days May, Active Fexofenadine HCl 180 MG TAKE ONE TABLET BY MOUTH @8AM Active Calcium 600 + D 600-400 MG-UNIT 1 tablet Orally twice a day for 30 da ys Active Timolol Maleate 0.25 % 1 drop into affected eye Ophthalmic Once a day Active Cranberry 400 MG as directed Orally bid on discharge 05/10/21 Active amLODIPine Besylate 5 MG 1 tablet Orally Once a day for 30 day(s ) Apr, Active Multivitamins 1 Orally daily for 30 Days Active Mupirocin 2 % APPLY TOPICALLY THREE TIMES DAILY EXTERNALLY DIRECTED for 10 Active Hydrochlorothiazide 12.5 MG TAKE ONE TABLET BY MOUTH @8AM for 28 Active Ciclopirox Olamine 0.77 % 1 application Externally daily to toenails on discharge from [facility] 05/10/21 Active SEROquel 200 MG 1 tab Orally before bedtime Active Aspir-81 81 MG 1 tablet Orally Once a day for 30 Days Active Triamcinolone Acetonide 0.1 % 1 application topically Twice a day to rash for 14 days May, Active Hydroxychloroquine 200 mg 1 cap po twice daily Active [place] Carbonate 300 MG 1 capsule at bedtime Orally every morning for mood stabization Apr, Active PROCEDURES No Information RESULTS No Results REASON FOR VISIT medication MEDICAL (GENERAL) HISTORY Type Description Date Medical History Schizoaffective disorder nu [facility] Medical History Depression Medical History Hypothyroidism Medical [...] day to rash for 14 days May, Next Appt Details Provider Name:Lili Ramirez, 2021-06-21 10:15:00 AM, [address] [place] [address], , [place], [place], [facility] [phone] Provider Name:Alicia Edmondson, 2021-06-23 01:00:00 PM, [address] [place] [address] , [place], [address], Provider Name:Zaina Hernández, 02:00:00 PM, [address] [place] [address] , [place], [address], Insurance Providers Payer Name Payer Address Payer Phone Insured Name Patient Relati onship to Insured Coverage Start Date Coverage End Date MEDICARE Part A and B [address] [facility] [id number] [phone] NIGEL ROSENBAUM MEDICAID [facility] [employer] [address] [facility] [id number] NIGEL ROSENBAUM
--- OUTSIDE RECORDS SUMMARY | 2021-06-18 07:33 | CCD ---
Author Author [facility] Organization [facility] Address Unknown Phone Unavailable Care Team Providers Care Tester Waste Disposal Leakage Name Role Phone Lili Ramirez Unavailable PROBLEMS Type Condition ICD9-CM Code RWQ47-UX Code Onset Dates Condition S tatus W/U Status Risk SNOMED Code Notes Problem Gastroesophageal reflux disease, esophagitis pre sence not specified K21.9 Active confirmed 813019168 Problem Allergic rhinitis, unspecified seasonality, unspecifie d trigger J30.9 Active confirmed 72167501 Problem Hypothyroidism, unspecified type E03.9 Active conf irmed 64322965 Problem BMI 40.0-44.9, adult Z68.41 Active confirmed 056352436 Problem Pain in right knee M25.561 Active confirmed 07095943 Problem Other chronic pain G89.29 Active confirmed 8 5858431 Problem Mixed hyperlipidemia E78.2 Active confirmed 355793615 Problem Tongue pain K14.6 Active confirmed 67175906 Problem Schizoaffective disorder, depressive type F25.1 Active confirmed 93479978 Problem Essential hypertension I10 Active confirmed 16038515 Problem Schizoaffective disorder, unspecified type F25.9 Active confirmed 91816444 Problem Leg edema R60.0 Active confirmed 993754286 Problem Sleep apnea in adult G47.30 Active confirmed 14161576 Problem Depression, unspecified depression type F32.9 Active confirmed 64867237 Problem Vitamin D deficiency E55.9 Active confirmed 18329035 ALLERGIES Allergen (clinical drug ingredient) Drug/Non Drug Allergy do cumented on EMR Reaction Allergy Type Onset Date Status trifluoperazine Trifluoperazine Unknown Drug Allergy Ac tive stelazine hyperactive Non Drug Allergy Active Thorazine passes out/or paces back and forth Drug Allergy Active zolpidem Zolpidem Unknown Drug Allergy Active bupropion BuPROPion HCl([facility] Code:[address]-31) Unknown Drug Jadon rgy Active Haldol Unknown Drug Allergy Active doxepin Doxepin HCl([facility] Code:[address]-75) Unknown Drug Allerg y Active nitrofurantoin Nitrofurantoin([facility] Code:[address]-60) Unknown Drug Allergy Active chlorpromazine ChlorproMAZINE Unknown Drug Allergy Acti ve hydroxyzine HydrOXYzine HCl([facility] Code:[address]-29) Unknown Drug A llergy Active zolpidem Ambien([facility] Code:[address]-89) Unknown Drug Allergy Active ENCOUNTERS from 1960 to 2021-06-03 Encounter Location Date Provider Diagnosis [facility] Dermatology [address] [facility] [phone] [place] [address] 07 May, 2021 Lili Ramirez IMMUNIZATIONS Vaccine Route Administration Date Status Influenza [...] Education Language: Question Answer Notes Languages spoken: French Church: Question Answer Notes Church 99 Other Mennonite Sexual Hx: Question Answer [...] Notes Start Da te End Date Status [place] Carbonate 300 MG 2 Orally at bedtime dose change on [facility] discharge 05/10/21 Active Synthroid 0.05 mg [...] CodeM25.561 daily for 1825 days FAX TO [facility] Jun, Active DOK 100 MG TAKE [...] Externally daily to toenails on discharge from [facility] 05/10/21 Active SEROquel 200 MG 1 tab Orally before bedtime Active Aspir-81 81 MG 1 tablet Orally Once a day for 30 Days Active Triamcinolone Acetonide 0.1 % 1 application topically Twice a day to rash for 14 days May, Active Hydroxychloroquine 200 mg 1 cap po twice daily Active [place] Carbonate 300 MG 1 capsule at bedtime Orally every morning for mood stabization Apr, Active PROCEDURES No Information RESULTS No Results REASON FOR VISIT Scalp Itching MEDICAL (GENERAL) HISTORY Type Description Date Medical History Schizoaffective disorder [facility] Medical History Depression Medical History Hypothyroidism Medical [...] Details Provider Name:Lili Ramirez, 2021-06-21 10:15:00 AM, [address] [place] [address], , [place], [place], [facility] [phone] Provider Name:Alicia Edmondson, 2021-06-23 01:00:00 PM, [address] [place] [address] , [place], [address], Provider Name:Zaina Hernández, 02:00:00 PM, [address] [place] [address] , [place], [address], Insurance Providers Payer Name Payer Address Payer Phone Insured Name Patient Relati onship to Insured Coverage Start Date Coverage End Date MEDICAID [employer] [address] [facility] [id number] NIGEL ROSENBAUM MEDICARE Part A and B [address] [facility] [address] NIGEL ROSENBAUM
--- OUTSIDE RECORDS SUMMARY | 2021-06-18 07:33 | CCD ---
Author Author Tati Ghosh Organization Unknown Address [address] [place] [address] Phone Care Team Providers Care Booth Operator Name Role Phone Elizabeth Ghosh PCP Allergies, [...] Name Taxonomy Code Taxonomy Desc Phone Number [phone] Zoloft by mouth [id number] 09/04/2019 every morning [place] [address] 396400 [id number] Kemi Graff [id number] Psychiatric/Mental Health [phone] 401944 lithium carbonate by mouth [id number] 05/13/2021 07/12/2021 once a day 30 300 mg tablet 56794 833059 [id number] Kemi Graff [id number] Psychiatric/Mental Health [phone] 683981 Zoloft by mouth [id number] 03/29/2021 07/13/2021 every morning 30 100 mg tablet 28682 437175 [id number] Kemi Graff [id number] P sychiatric/Mental Health [id number] 713246 quetiapine by mouth [id number] 05/13/2021 08/11/2021 at bedtime 30 200 mg tablet extended release 24 hr 70812 292513 [phone] Kemi Graff [id number] Psychiatric/Mental Health [id number] 121514 quetiapine by mouth [id number] 05/13/2021 08/11/2021 twice a day 30 50 mg tablet 61023 394997 [phone] Kemi Graff [id number] P sychiatric/Mental Health [id number] Social History Social History Element Description Concept Effective Date Smoking Status Unknown if ever smoked [id number] Immunizations No Data in Section Vital Signs No Data in Section Procedures Date Concept Id Description Targeted Site Concept Targeted Site Concept Type 05/20/2021 53436 Extended Individual Psychotherapy - 45 min CPT Patient has no history of implantable de vices Encounters Encounter Start Date End Date Encounter Type Description Diagnosis Di agnosis Desc Location Author First Name Author Last Name Npid Taxonomy Cod e Taxonomy Desc Phone Number Location Addr1 Location Addr2 Location City Location Sta te Location Zip [id number] 05/20/2021 05/20/2021 94787 Extended Individual Psych otherapy - 45 min F25.0 Schizoaffective [facility], [facility] [phone] [id number] Plastic Tile Layer [id number] [address] [place] [address] [address] Plan of Treatment No Data in Section Lab Results No Data in Section Instructions No Data in Section Insurance Providers Insurance Id Policy Effective Date Policy Thru Date Company N deny [id number] 1993 MEDICARE [id number] 2016 MEDICAID
--- OUTSIDE RECORDS SUMMARY | 2021-06-18 07:33 | CCD ---
Author Author [facility] Organization [facility] Address Unknown Phone Unavailable Care Team Providers Care Fuel Dock Attendant Name Role Phone Zaina Hernández Unavailable PROBLEMS Type Condition ICD9-CM Code FEY85-TZ Code Onset Dates Condition S tatus W/U Status Risk SNOMED Code Notes Problem Gastroesophageal reflux disease, esophagitis pre sence not specified K21.9 Active confirmed 788605771 Problem Allergic rhinitis, unspecified seasonality, unspecifie d trigger J30.9 Active confirmed 49128078 Problem Schizoaffective disorder, unspecified type F25.9 Active confirmed 46985680 Problem Schizoaffective disorder, depressive type F25.1 Active confirmed 77304951 Problem Pain in right knee M25.561 Active confirmed 90001939 Problem Depression, unspecified depression type F32.9 Active confirmed 91352528 Problem Hypothyroidism, unspecified type E03.9 Active conf irmed 74608105 Problem Vitamin D deficiency E55.9 Active confirmed 45165245 Problem BMI 40.0-44.9, adult Z68.41 Active confirmed 872812339 Problem Other chronic pain G89.29 Active confirmed 8 1706332 Problem Mixed hyperlipidemia E78.2 Active confirmed 293225554 Problem Leg edema R60.0 Active confirmed 503546393 Problem Sleep apnea in adult G47.30 Active confirmed 29447913 ALLERGIES Allergen (clinical drug ingredient) Drug/Non Drug Allergy do cumented on EMR Reaction Allergy Type Onset Date Status doxepin Doxepin HCl([facility] Code:[address]-41) Unknown Drug Allerg y Active nitrofurantoin Nitrofurantoin([facility] Code:[address]-65) Unknown Drug Allergy Active stelazine hyperactive Non Drug Allergy Active chlorpromazine ChlorproMAZINE Unknown Drug Allergy Acti ve hydroxyzine HydrOXYzine HCl([facility] Code:[address]-27) Unknown Drug A llergy Active bupropion BuPROPion HCl([facility] Code:[address]-05) Unknown Drug Jadon rgy Active Haldol Unknown Drug Allergy Active zolpidem Ambien([facility] Code:[address]-85) Unknown Drug Allergy Active Thorazine passes out/or paces back and forth Drug Allergy Active ENCOUNTERS from 1960 to 2021-05-18 Encounter Location Date [facility] [address] [facility] [phone] [place] [address] Apr, Zaina Servage IMMUNIZATIONS Vaccine Route Administration Date [...] Education Language: Question Answer Notes Languages spoken: Hungarian Spiritism: Question Answer Notes Spiritism 99 Other Mennonite Sexual Hx: Question Answer [...] CodeM25.561 daily for 1825 days FAX TO [facility] Jun, Active amLODIPine Besylate 5 MG 1 tablet Orally Once a day for 30 day(s ) Apr, Active [place] Carbonate 300 MG 1 capsule at bedtime Orally every morning for mood stabization Apr, Active Timolol Maleate 0.25 % 1 drop into affected eye Ophthalmic Once a day Active Whitney Allergy 180 MG 1 tablet as needed Orally Once a day Unknown Nystatin Powder 080001 UNIT/GM as directed Externally daily for 30 da ys Unknown [place] Carbonate 300 MG 2 Orally at bedtime dose change on [facility] discharge 05/10/21 Active Voltaren 1 % as [...] Externally daily to toenails on discharge from [facility] 05/10/21 Active Cranberry 400 MG as directed Orally bid on discharge 05/10/21 Active Mupirocin 2 % 1 application Externally Three times a day for 5 Unknown Multivitamins 1 Orally daily for 30 Days Active Melatonin 5 MG 1 tablet at bedtime as neede d with food Orally Once a day for 30 day(s) Unknown PROCEDURES No Information RESULTS No Results REASON FOR VISIT amlodipine MEDICAL (GENERAL) HISTORY Type Description Date Medical History Schizoaffective disorder [facility] Medical History Depression Medical History Hypothyroidism Medical [...] Appt Details Provider Name:Zaina Hernández, 11:00:00 AM, [address] [place] [address] , [place], [address], Provider Name:Lili Ramirez, 2021-06-21 10:15:00 AM, [address] [facility], , [place], [address], Provider Name:Alicia Edmondson, 2021-06-23 01:00:00 PM, [address] [place] [address] , [place], [address], Provider Name:Zaina Hernández, 02:00:00 PM, [address] [place] [address] , [place], [address], Insurance Providers Payer Name Payer Address Payer Phone Insured Name Patient Relati onship to Insured Coverage Start Date Coverage End Date MEDICARE Part A and B [address] [facility] [id number] NIGEL ROSENBAUM MEDICAID [employer] [address] [facility] [id number] NIGEL ROSENBAUM self
--- OUTSIDE RECORDS SUMMARY | 2021-06-18 07:33 | CCD ---
Author Author [facility] Organization [facility] Address Unknown Phone Unavailable Care Team Providers Care Rotary Planer Set Up Operator Name Role Phone Zaina Hernández Unavailable PROBLEMS Type Condition ICD9-CM Code MBE04-PJ Code Onset Dates Condition S tatus W/U Status Risk SNOMED Code Notes Problem Gastroesophageal reflux disease, esophagitis pre sence not specified K21.9 Active confirmed 422155436 Problem Allergic rhinitis, unspecified seasonality, unspecifie d trigger J30.9 Active confirmed 87551118 Problem Schizoaffective disorder, unspecified type F25.9 Active confirmed 92922422 Problem Schizoaffective disorder, depressive type F25.1 Active confirmed 88844850 Problem Pain in right knee M25.561 Active confirmed 49011088 Problem Depression, unspecified depression type F32.9 Active confirmed 14326837 Problem Hypothyroidism, unspecified type E03.9 Active conf irmed 70439560 Problem Vitamin D deficiency E55.9 Active confirmed 10665511 Problem BMI 40.0-44.9, adult Z68.41 Active confirmed 422945542 Problem Other chronic pain G89.29 Active confirmed 8 9583853 Problem Mixed hyperlipidemia E78.2 Active confirmed 123955080 Problem Leg edema R60.0 Active confirmed 948013390 Problem Sleep apnea in adult G47.30 Active confirmed 18523870 ALLERGIES Allergen (clinical drug ingredient) Drug/Non Drug Allergy do cumented on EMR Reaction Allergy Type Onset Date Status doxepin Doxepin HCl([facility] Code:[address]-80) Unknown Drug Allerg y Active nitrofurantoin Nitrofurantoin([facility] Code:[address]-99) Unknown Drug Allergy Active stelazine hyperactive Non Drug Allergy Active chlorpromazine ChlorproMAZINE Unknown Drug Allergy Acti ve hydroxyzine HydrOXYzine HCl([facility] Code:[address]-05) Unknown Drug A llergy Active bupropion BuPROPion HCl([facility] Code:[address]-68) Unknown Drug Jadon rgy Active Haldol Unknown Drug Allergy Active zolpidem Ambien([facility] Code:[address]-95) Unknown Drug Allergy Active Thorazine passes out/or paces back and forth Drug Allergy Active ENCOUNTERS from 1960 to 2021-04-16 Encounter Location Date Provider Diagnosis [facility] [address] [facility] [phone] [place] [address] Mar, Zaina Servage IMMUNIZATIONS Vaccine Route Administration [...] Education Language: Question Answer Notes Languages spoken: Greek Gnosticist: Question Answer Notes Gnosticist 99 Other Mennonite Sexual Hx: Question Answer [...] Notes Start Da te End Date Status Amoxicillin 500 MG 4 tablet Orally one hour prior to dental procedu re for 1 Active Aspir-81 81 MG 1 tablet Orally Once a day for 30 Days Active Hydroxychloroquine 200 mg 1 cap twice daily Active Multivitamins 1 Orally daily for 30 Days Active Fexofenadine HCl 180 MG TAKE ONE TABLET BY MOUTH @8AM Active Artificial Tear Active Triamcinolone Acetonide 55 MCG/ACT 1 spray in each nostril Nasal ly Once a day Nov, Active Voltaren 1 % as directed Externally as needed Active Rolling Walker 1 with seat, basket and brakes DX: CodeM25.561 daily for 1825 days FAX TO [facility] Jun, Active SEROquel 25 mg 1 tab Orally at 8am and 2 pm Active SEROquel 400 MG 1 tab orally before bedtime Active Latanoprost 0.005 % 1 drop into affected eye in the evening Ophthalmic Once a day Active Calcium 600 + D 600-400 MG-UNIT 1 tablet Orally twice a day for 30 da ys Active Nystatin Powder 229308 UNIT/GM as directed Externally daily for 30 da ys Active Whitney Allergy 180 MG 1 tablet as needed Orally Once a day Active Hydrochlorothiazide 12.5 MG TAKE ONE TABLET BY MOUTH @8AM for 28 Active Omeprazole 40 MG 1 capsule Orally Once a day Active Melatonin 5 MG 1 tablet at bedtime as neede d with food Orally Once a day for 30 day(s) Active Zoloft 100 MG 1.5 tabs Orally Once a day Active Synthroid 0.05 mg 1 tab(s) Orally daily for 30 days Active Tylenol 325 MG 1-2 tablets Orally every 4-6 hours as needed for pain for 30 Days Active Timolol Maleate 0.25 % 1 drop into affected eye Ophthalmic Once a day Active Lac-Hydrin 12 % 1 application to affected area Externally as needed Active [place] Carbonate 300 MG 4.5 caps Orally at bedtime Active Mupirocin 2 % 1 application Externally Three times a day for 5 Active DOK 100 MG TAKE TWO CAPSULES BY MOUTH @8AM for 28 Active PROCEDURES No Information RESULTS No Results REASON FOR VISIT questions MEDICAL (GENERAL) HISTORY Type Description Date Medical History Schizoaffective disorder [facility] Medical History Depression Medical History [...] Medication Name Sig Start Date Stop Date Hydrochlorothiazide 12.5 MG TAKE ONE TABLET BY MOUTH @8AM for 28 DOK 100 MG TAKE TWO CAPSULES BY MOUTH @8AM for 28 Synthroid 0.05 mg 1 tab(s) Orally daily for 30 days Calcium 600 + D 600-400 MG-UNIT 1 tablet Orally twice a day for 30 days Omeprazole 40 MG 1 capsule Orally Once a day Fexofenadine HCl 180 MG TAKE ONE TABLET BY MOUTH @8AM Next Appt Details Provider Name:Lili Ramirez, 2021-06-21 10:15:00 AM, [address] [place] [address], , [place], [place], [facility] [phone] Provider Name:Zaina Hernández, 02:00:00 PM, [address] [place] [address] , [place], [address], Insurance Providers Payer Name Payer Address Payer Phone Insured Name Patient Relati onship to Insured Coverage Start Date Coverage End Date MEDICAID [place] [address] [facility] [id number] NIGEL ROSENBAUM MEDICARE Part A and B [address] [facility] [address] NIGEL ROSENBAUM
--- OUTSIDE RECORDS SUMMARY | 2021-06-18 07:33 | CCD ---
Author Author [facility] Organization [facility] Address Unknown Phone Unavailable Care Team Providers Care Director Sanitation Bureau Name Role Phone Zaina Hernández Unavailable PROBLEMS Type Condition ICD9-CM Code NUL39-GZ Code Onset Dates Condition S tatus W/U Status Risk SNOMED Code Notes Problem Gastroesophageal reflux disease, esophagitis pre sence not specified K21.9 Active confirmed 524052689 Problem Allergic rhinitis, unspecified seasonality, unspecifie d trigger J30.9 Active confirmed 03750444 Problem Hypothyroidism, unspecified type E03.9 Active conf irmed 56430748 Problem BMI 40.0-44.9, adult Z68.41 Active confirmed 920733525 Problem Pain in right knee M25.561 Active confirmed 29345803 Problem Other chronic pain G89.29 Active confirmed 8 5806765 Problem Mixed hyperlipidemia E78.2 Active confirmed 936254530 Problem Tongue pain K14.6 Active confirmed 34371003 Problem Schizoaffective disorder, depressive type F25.1 Active confirmed 66122637 Problem Essential hypertension I10 Active confirmed 89172094 Problem Schizoaffective disorder, unspecified type F25.9 Active confirmed 80815664 Problem Leg edema R60.0 Active confirmed 342420455 Problem Sleep apnea in adult G47.30 Active confirmed 14876639 Problem Depression, unspecified depression type F32.9 Active confirmed 86557032 Problem Vitamin D deficiency E55.9 Active confirmed 64180303 ALLERGIES Allergen (clinical drug ingredient) Drug/Non Drug Allergy do cumented on EMR Reaction Allergy Type Onset Date Status trifluoperazine Trifluoperazine Unknown Drug Allergy Ac tive stelazine hyperactive Non Drug Allergy Active Thorazine passes out/or paces back and forth Drug Allergy Active zolpidem Zolpidem Unknown Drug Allergy Active bupropion BuPROPion HCl([facility] Code:[address]-51) Unknown Drug Jadon rgy Active Haldol Unknown Drug Allergy Active doxepin Doxepin HCl([facility] Code:[address]-32) Unknown Drug Allerg y Active nitrofurantoin Nitrofurantoin([facility] Code:[address]-41) Unknown Drug Allergy Active chlorpromazine ChlorproMAZINE Unknown Drug Allergy Acti ve hydroxyzine HydrOXYzine HCl([facility] Code:[address]-59) Unknown Drug A llergy Active zolpidem Ambien([facility] Code:[address]-70) Unknown Drug Allergy Active ENCOUNTERS from 1960 to 2021-05-25 Encounter Location Date Provider Diagnosis [facility] [address] [facility] [phone] [place] [address] Apr, Zaina Servage IMMUNIZATIONS Vaccine Route Administration [...] Education Language: Question Answer Notes Languages spoken: Liberian Yazdanism: Question Answer Notes Yazdanism 99 Other Mennonite Sexual Hx: Question Answer [...] Notes Start Da te End Date Status Calcium 600 + D 600-400 MG-UNIT 1 tablet Orally twice a day for 30 da ys Active Hydrochlorothiazide 12.5 MG TAKE ONE TABLET BY MOUTH @8AM for 28 Active SEROquel 200 MG 1 tab Orally before bedtime Active [place] Carbonate 300 MG 1 capsule at bedtime Orally every morning for mood stabization Apr, Active DOK 100 MG TAKE TWO CAPSULES BY MOUTH @8AM for 28 Active Timolol Maleate 0.25 % 1 drop into affected eye Ophthalmic Once a day Active Lidocaine Viscous HCl 2 % 15 ml Mouth/Throat twice sae ly as neededfor tondue discomfort for 30 days Mar, Active Fexofenadine HCl 180 MG TAKE ONE TABLET BY MOUTH @8AM Active Cranberry 400 MG as directed Orally bid on discharge 05/10/21 Active Omeprazole 40 MG 1 capsule Orally Once a day Active [place] Carbonate 300 MG 2 Orally at bedtime dose change on [facility] discharge 05/10/21 Active Multivitamins 1 Orally daily for 30 Days Active Ciclopirox Olamine 0.77 % 1 application Externally daily to toenails on discharge from [facility] 05/10/21 Active SEROquel 25 mg 1 tab Orally at 8am and 2 pm Active Aspir-81 81 MG 1 tablet Orally Once a day for 30 Days Active Latanoprost 0.005 % 1 drop into affected eye in the evening Ophthalmic Once a day Active Artificial Tear Active amLODIPine Besylate 5 MG 1 tablet Orally Once a day for 30 day(s ) Apr, Active Synthroid 0.05 mg 1 tab(s) Orally daily Active Hydroxychloroquine 200 mg 1 cap po twice daily Active Rolling Walker 1 with seat, basket and brakes DX: CodeM25.561 daily for 1825 days FAX TO [facility] Jun, Active PROCEDURES No Information RESULTS No Results REASON FOR VISIT ultrasound legs MEDICAL (GENERAL) HISTORY Type Description Date Medical History Schizoaffective disorder [facility] Medical History Depression Medical History Hypothyroidism Medical [...] Medication Name Sig Start Date Stop Date Omeprazole 40 MG 1 capsule Orally Once a day Synthroid 0.05 mg 1 tab(s) Orally daily Lidocaine Viscous HCl 2 % 15 ml Mouth/Throat twice sae ly as neededfor tondue discomfort for 30 days Mar, Fexofenadine HCl 180 MG TAKE ONE TABLET BY MOUTH @8AM Next Appt Details Provider Name:Lili Ramirez, 2021-06-21 10:15:00 AM, [address] [place] [address] , [place], [place], [facility] [phone] Provider Name:Alicia Edmondson, 2021-06-23 01:00:00 PM, [address] [place] [address] , [place], [address], Provider Name:Zaina Hernández, 02:00:00 PM, [address] [place] [address] , [place], [address], Insurance Providers Payer Name Payer Address Payer Phone Insured Name Patient Relati onship to Insured Coverage Start Date Coverage End Date MEDICARE Part A and B [address] [facility] [address] NIGEL ROSENBAUM MEDICAID [facility] [address] [facility] [id number] NIGEL ROSENBAUM
--- OUTSIDE RECORDS SUMMARY | 2021-06-18 07:33 | CCD ---
Author Author [facility] Organization [facility] Address Unknown Phone Unavailable Care Team Providers Care Social Media Assistant Name Role Phone Zaina Hernández Unavailable PROBLEMS Type Condition ICD9-CM Code [id number] Code Onset Dates Condition S tatus W/U Status Risk SNOMED Code Notes Problem Gastroesophageal reflux disease, esophagitis pre sence not specified K21.9 Active confirmed 495055630 Problem Allergic rhinitis, unspecified seasonality, unspecifie d trigger J30.9 Active confirmed 13830022 Problem Schizoaffective disorder, unspecified type F25.9 Active confirmed 86187496 Problem Schizoaffective disorder, depressive type F25.1 Active confirmed 09550864 Problem Pain in right knee M25.561 Active confirmed 01180670 Problem Depression, unspecified depression type F32.9 Active confirmed 04546779 Problem Hypothyroidism, unspecified type E03.9 Active conf irmed 54097026 Problem Vitamin D deficiency E55.9 Active confirmed 39211665 Problem BMI 40.0-44.9, adult Z68.41 Active confirmed 523520529 Problem Other chronic pain G89.29 Active confirmed 8 1015029 Problem Mixed hyperlipidemia E78.2 Active confirmed 184191844 Problem Leg edema R60.0 Active confirmed 310234738 Problem Sleep apnea in adult G47.30 Active confirmed 83332660 ALLERGIES Allergen (clinical drug ingredient) Drug/Non Drug Allergy do cumented on EMR Reaction Allergy Type Onset Date Status doxepin Doxepin HCl([facility] Code:[address]-30) Unknown Drug Allerg y Active nitrofurantoin Nitrofurantoin(ND Code:[address]-21) Unknown Drug Allergy Active stelazine hyperactive Non Drug Allergy Active chlorpromazine ChlorproMAZINE Unknown Drug Allergy Acti ve hydroxyzine HydrOXYzine HCl([facility] Code:[address]-81) Unknown Drug A llergy Active bupropion BuPROPion HCl([facility] Code:[address]-46) Unknown Drug Jadon rgy Active Haldol Unknown Drug Allergy Active zolpidem Ambien([facility] Code:[address]-89) Unknown Drug Allergy Active Thorazine passes out/or paces back and forth Drug Allergy Active ENCOUNTERS from 1960 to 2021-05-18 Encounter Location Date Provider Diagnosis [facility] [address] [facility] [phone] [place] [address] Apr, Zaina Servage IMMUNIZATIONS Vaccine Route Administration [...] Education Language: Question Answer Notes Languages spoken: Jordanian Hindu: Question Answer Notes Hindu 99 Other Mennonite Sexual Hx: Question Answer [...] CodeM25.561 daily for 1825 days FAX TO [facility] Jun, Active amLODIPine Besylate 5 MG 1 tablet Orally Once a day for 30 day(s ) Apr, Active [place] Carbonate 300 MG 1 capsule at bedtime Orally every morning for mood stabization Apr, Active Timolol Maleate 0.25 % 1 drop into affected eye Ophthalmic Once a day Active [facility] Allergy 180 MG 1 tablet as needed Orally Once a day Unknown Nystatin Powder 272484 UNIT/GM as directed Externally daily for 30 da ys Unknown [place] Carbonate 300 MG 2 Orally at bedtime dose change on [facility] discharge 05/10/21 Active Voltaren 1 % [...] Externally daily to toenails on discharge from [facility] 05/10/21 Active Cranberry 400 MG as [...] Information RESULTS No Results REASON FOR VISIT unable to triage MEDICAL (GENERAL) HISTORY Type Description Date Medical History Schizoaffective disorder [facility] Medical History Depression Medical History Hypothyroidism Medical [...] Appt Details Provider Name:Zaina Hernández, 11:00:00 AM, [address] [place] [address] , [place], [address], Provider Name:Lili Ramirez, 2021-06-21 10:15:00 AM, [address] [facility], , [place], [address], Provider Name:Alicia Edmondson, 2021-06-23 01:00:00 PM, [address] [place] [address] , [place], [address], Provider Name:Zaina Hernández, 02:00:00 PM, [address] [place] [address] , [place], [address], Insurance Providers Payer Name Payer Address Payer Phone Insured Name Patient Relati onship to Insured Coverage Start Date Coverage End Date MEDICAID [employer] [address] [facility] [id number] NIGEL ROSENBAUM MEDICARE Part A and B [address] [facility] [address] NIEGL ROSENBAUM
--- OUTSIDE RECORDS SUMMARY | 2021-06-18 07:34 | CCD ---
Author Author Tati Ghosh Organization Unknown Address [address] [address] Phone Care Team Providers Care Rewinder Operator Helper Name Role Phone Elizabeth Ghosh PCP Allergies, [...] Name Taxonomy Code Taxonomy Desc Phone Number [phone] Zoloft 09/04/2019 50 mg tablet 33862 [phone] Kemi Graff [id number] Psychiatric/Mental Health [phone] Social History Social History Element Description Concept Effective Date Smoking Status Unknown if ever smoked [id number] 51783151 Immunizations No Data in Section Vital Signs No Data in Section Procedures Date Concept Id Description Targeted Site Concept Targeted Site Concept Type 03/26/2021 53471 Extended Individual Psychotherapy - 45 min CPT Patient has no history of implantable de vices Encounters Encounter Start Date End Date Encounter Type Description Diagnosis Di agnosis Desc Location Author First Name Author Last Name Npid Taxonomy Cod e Taxonomy Desc Phone Number Location Addr1 Location Addr2 Location [facility] Location [facility] Location Zip [id number] 03/26/2021 03/26/2021 31207 Extended Individual Psych otherapy - 45 min F25.0 Schizoaffective disorder, bipolartype [facility] Davina Johnson [phone] [id number] Cloth Finishing Range Operator [phone] [address] [address] Plan of Treatment No Data in Section Lab Results No Data in Section Instructions No Data in Section Insurance Providers Insurance Id Policy Effective Date Policy Thru Date Paulino N deny [id number] 1993 MEDICARE [id number] 2016 MEDICAID
--- OUTSIDE RECORDS SUMMARY | 2021-06-18 07:34 | CCD ---
Author Author Tati Graff Organization Unknown Address [address] [place] [place] [address] [place] [address] Phone Care Team Providers Care Cardiothoracic Icu Rn Name Role Phone Kemi Graff PCP Allergies, Adverse Reactions, Alerts No Data [...] Name Taxonomy Code Taxonomy Desc Phone Number [phone] Zoloft by mouth [id number] 09/04/2019 every morning [place] [address] 912126 [phone] Luciana Byrd [id number] Nurse Practitioner [phone] 428139 lithium carbonate by mouth [id number] 03/29/2021 04/28/2021 at bedt higinio 30 300 mg tablet 59180 601220 [id number] Luciana Byrd [id number] Nurse Practitioner [phone] 085393 quetiapine by mouth [id number] 03/29/2021 04/28/2021 twice a day 30 25 mg tablet 07862 [id number] [id number] Luciana Byrd [id number] Nurse P sophia [phone] [id number] Zoloft by mouth [id number] 03/29/2021 04/28/2021 every morning 30 100 mg tablet 08078 884154 [id number] Luciana Byrd [id number] Nurse Jabier cortes [id number] 446396 quetiapine by mouth [id number] 03/29/2021 04/28/2021 at bedtime 30 400 mg tablet extended release 24 hr 75462 [id number] [phone] Ava Byrd [id number] Nurse Practitioner [id number] Social History Social History Element Description Concept Effective Date Smoking Status Unknown if ever smoked 050850531 53957583 Immunizations No Data in Section Vital Signs No Data in Section Procedures Date Concept Id Description Targeted Site Concept Targeted Site Concept Type 04/14/2021 74373-78 [facility] Telemed E/M Lvl 3--Est pt CPT Patient has no history of implantable de vices Encounters Encounter Start Date End Date Encounter Type Description Diagnosis Di agnosis Desc Location Author First Name Author Last Name Npid Taxonomy Cod e Taxonomy Desc Phone Number Location Addr1 Location Addr2 Location City Location [place] Location Zip [id number] 04/14/2021 04/14/2021 74247-46 [facility] Telemed E/M Lvl 3--Est p t F25.0 Schizoaffective disorder, bipolartype [facility] [phone] [id number] Psychiatric/Mental Health [phone] [address] [address] Plan of Treatment No Data in Section Lab Results No Data in Section Instructions No Data in Section Functional Cognitive Status No Data in Section Insurance Providers Insurance Id Policy Effective Date Policy Thru Date Company N deny [id number] 1993 MEDICARE [id number] MEDICAID
--- OUTSIDE RECORDS SUMMARY | 2021-06-18 07:34 | CCD | Summary of Care ---
Author Author [facility] Organization [facility] Address Unknown Phone Unavailable Care Team Providers Care Clinical Dental Technician Name Role Phone Betty Zaina Chauhan MANAGER BUILDING PCP Reason for Visit * Reason Comments Follow-up Mixed connective tissue dis ease Encounter Details Care Team Description Date Type Department Patricia Dozier MD [address], [place] [id number] MCTD (mixed connective tissue disease) ( Primary Dx); ESR raised; Polyarthralgia; Positive HAYLIE (antinuclear antibody); Rheumatoid factor positive; Primary osteoarthritis involving multiple joints 03/09/2021 Telemedicine [facility]olog at [facility] [address] [facility] 2[address], [address] [place] [address] Allergies Comments Active Allergy Reactions Severity Noted Date Bupropion Anxiety Low 12/01/2017 Doxepin 05/06/2019 Haloperidol Lactate 05/06/2019 Hydroxyzine 05/06/2019 Nitrofuran Derivatives 05/06/2019 Trifluoperazine 05/06/2019 Chlorpromazine Anxiety Low 12/01/2017 documented as of this encounter (statuses as of 03/25/2021) Medications End Date Status Medication Sig Dispensed Refills Start Date Active MAPAP ARTHRITIS PAIN 650 TAKE ONE 0 09/15 MG CR tablet TABLET BY 8 MOUTH DIRECTED FOR FEVER, MAX DAILY DOSE ONE TABLET Active aspirin 81 MG EC tablet TAKE ONE 5 TABLET BY 8 MOUTH ONCE DAILY Active levothyroxine (SYNTHROID, Take 50 mcg 0 03/0 LEVOTHROID) 50 MCG tablet by mouth 8 every morning before breakfast Active sertraline (ZOLOFT) 100 Take 100 mg 0 11/27/ 201 MG tablet by mouth 8 daily Active omeprazole (PRILOSEC) 40 Take 40 mg by 0 11/24 MG capsule mouth daily 8 Active cetirizine (ZYRTEC) 10 MG TAKE ONE 10/27 tablet TABLET BY 8 MOUTH ONCE DAILY Active DOK 100 MG capsule TAKE 1-2 CAPSULES BY 8 MOUTH ONCE DAILY NEEDED Active lithium carbonate 300 MG Take 1,200 mg 0 11/22 capsule by mouth 8 Daily Active sertraline (ZOLOFT) 50 MG Take 50 mg by 0 04/ tablet mouth daily 8 Active OLANZapine (ZYPREXA) 10 Take 10 mg by 0 MG tablet mouth nightly 8 Active nystatin (MYCOSTATIN) 0 powder 8 Active mupirocin (BACTROBAN) 2 % 0 ointment 8 Active Multiple Vitamin TAKE ONE (TAB-A-IRIS) TABS TABLET BY 8 MOUTH ONCE DAILY Active latanoprost (XALATAN) 0 0.005 % ophthalmic 8 solution Active Calcium Carbonate-Vitamin TAKE ONE 10/28 D 600-400 MG-UNIT per TABLET BY 8 tablet MOUTH ONCE DAILY Active QUEtiapine (SEROQUEL) 200 Take 400 mg 0 MG tablet by mouth nightly Active fexofenadine (SOFIA) TAKE ONE 01 180 MG tablet TABLET BY 9 MOUTH @8AM Active QUEtiapine (SEROQUEL) 25 TAKE 1/2 04/08 MG tablet TABLET BY 9 MOUTH @8AM and TAKE 1/2 TABLET @2PM Active ammonium lactate APPLY (AMLACTIN) 12 % cream TOPICALLY A 9 SMALL AMOUNT TO AFFECTED AREAS OF TRUNK AND EXTREMITIES DAILY AFTER SHOWER Active tramadol (ULTRAM) 50 MG TAKE ONE tablet TABLET BY 9 MOUTH EVERY TWELVE HOURS NEEDED FOR PAIN MAX DAILY DOSE TWO TABLETS Active cyclobenzaprine Take 5 mg by 0 (FLEXERIL) 10 MG tablet mouth Three times daily as needed for Muscle spasms Active Melatonin 5 MG CAPS Take by mouth 0 nightly Active timolol maleate INSTILL ONE (TIMOPTIC) 0.5 % DROP INTO 9 ophthalmic solution EACH EYE TWICE DAILY DIRECTED Active Cranberry-Vitamin Take by mouth 0 C-Vitamin E (CRANBERRY PLUS VITAMIN C PO) Active Dextran 70-Hypromellose Apply to eye 0 (ARTIFICIAL TEARS) 0.1-0.3 % SOLN Active Mapap 325 MG Oral Tablet TAKE ONE 0 10/18 TABLET BY 0 MOUTH EVERY 4 TO 6 HOURS NEEDED FOR PAIN OR FOR FEVER Active hydroCHLOROthiazide 12.5 TAKE ONE 0 10/21 MG Oral Tablet TABLET BY 0 (HYDRODIURIL) MOUTH @8AM Active Hydroxychloroquine TAKE ONE 180 tablet 2 02 Sulfate 200 MG Oral TABLET BY 1 Tablet MOUTH @8AM (PLAQUENIL)Indications: and TAKE ONE MCTD (mixed connective TABLET BY tissue disease), ESR MOUTH @8PM raised, Polyarthralgia, Positive HAYLIE (antinuclear antibody), Rheumatoid factor positive documented as of this encounter (statuses as of 03/25/2021) Active Problems Problem Noted Date MCTD (mixed connective tissue disease) 02/02/2018 KANU (obstructive sleep apnea) 12/01/2017 Primary osteoarthritis involving multiple joints 01/2018 Primary angle-closure glaucoma 12/01/2017 Polyarthralgia 12/01/2017 Rheumatoid factor positive 12/01/2017 ESR raised 12/01/2017 Positive HAYLIE (antinuclear antibody) 12/01/2017 documented as of this encounter (statuses as of 03/25/2021) Social History Date Tobacco Use Types Packs/Day Years Used Never Smoker Cigarettes Smokeless Tobacco: Never Used Comments Alcohol Use Standard Drinks/Week No 0 (1 standard drink = 0.6 o z pure alcohol) Sex Assigned at Date Recorded Not on file documented as of this encounter Last Filed Vital Signs Not on filedocumented in this encounter Progress Notes * Patricia Dozier MD - 03/09/2021 4:00 PM EDT This is a telephonic visit which was performed without the use of video technolo gy due to patient inability to connect with video. The patient was informed of t he risks including security breech, technological failure, inability to perform a physical exam which could delay or prevent an accurate diagnosis, and potentia l complications from treatment decisions rendered over a telephonic platform. "T he patient understands and consented to the use of a telephonic visit/telephone call. PCP: Zaina Hernández NP History of Present Illness Ms. Tati Sevilla is a 60 y.o. female with a past medical history as menti oned below and most significant for degenerative joint diease of multiple joint, s/p left hip replacement in 2018, mixed connective tissue disease. Interval history This is a follow-up visit. The patient was evaluated via telemedicine, phone on ly visit. She has history of mixed connective tissue disease. Work-up showed p ositive HAYLIE, positive [employer]IP[employer]ACHINE, positive rheumatoid factor. She also has an increase d inflammatory markers. Currently she is on hydroxychloroquine 200 mg twice a d ay. Overall she has been doing much better. Her pains and aches have improved. Sometimes she feels worse in all joints and muscles especially when there is i ncrease humidity. Her knees are stable at this time. She does not need any inj ection. She does not need any refills from hydroxychloroquine. She is afraid o f the COVID-19 pandemic. She does not want to come out of her house. She prefe rs doing telemedicine. She is not interested to do any COVID-19 vaccination. I have discussed about the importance of vaccination. Denies any active aerosol oxygen. No temporal headaches or jaw claudication. No change in vision. No dr y eyes or dry mouth. Past Medical History reviewed including ADR and meds. ALLERGIES: Allergies Allergen Reactions Doxepin Haldol [Haloperidol Lactate] Hydroxyzine Nitrofuran Derivatives Stelazine [Trifluoperazine] Bupropion Anxiety Thorazine [Chlorpromazine] Anxiety Patient Active Problem List Diagnosis KANU (obstructive sleep apnea) Primary osteoarthritis involving multiple joints Primary angle-closure glaucoma Polyarthralgia Rheumatoid factor positive ESR raised Positive HAYLIE (antinuclear antibody) MCTD (mixed connective tissue disease) MEDICATIONS: Current Outpatient Medications on File Prior to Visit Medication Sig Dispense Refill ammonium lactate (AMLACTIN) 12 % cream APPLY TOPICALLY A SMALL AMOUNT TO AFFECTED AREAS OF TRUNK AND EXTREMITIES DAILY AFTER SHOWER 5 aspirin 81 MG EC tablet TAKE ONE TABLET BY MOUTH ONCE DAILY 5 Calcium Carbonate-Vitamin D 600-400 MG-UNIT per tablet TAKE ONE TABLET BY MOUTH ONCE DAILY 5 cetirizine (ZYRTEC) 10 MG tablet TAKE ONE TABLET BY MOUTH ONCE DAILY 5 Cranberry-Vitamin C-Vitamin E (CRANBERRY PLUS VITAMIN C PO) Take by mouth cyclobenzaprine (FLEXERIL) 10 MG tablet Take 5 mg by mouth Three times da radha as needed for Muscle spasms Dextran 70-Hypromellose (ARTIFICIAL TEARS) 0.1-0.3 % SOLN Apply to eye DOK 100 MG capsule TAKE 1-2 CAPSULES BY MOUTH ONCE DAILY NEEDED 5 fexofenadine (SOFIA) 180 MG tablet TAKE ONE TABLET BY MOUTH @8AM 5 hydroCHLOROthiazide 12.5 MG Oral Tablet (HYDRODIURIL) TAKE ONE TABLET BY MOUTH @8AM Hydroxychloroquine Sulfate 200 MG Oral Tablet (PLAQUENIL) TAKE ONE TABLET BY MOUTH @8AM and TAKE ONE TABLET BY MOUTH @8PM 180 tablet 2 latanoprost (XALATAN) 0.005 % ophthalmic solution levothyroxine (SYNTHROID, LEVOTHROID) 50 MCG tablet Take 50 mcg by mouth every morning before breakfast lithium carbonate 300 MG capsule Take 1,200 mg by mouth Daily Mapap 325 MG Oral Tablet TAKE ONE TABLET BY MOUTH EVERY 4 TO 6 HOURS N EEDED FOR PAIN OR FOR FEVER MAPAP ARTHRITIS PAIN 650 MG CR tablet TAKE ONE TABLET BY MOUTH DIRECTE D FOR FEVER, MAX DAILY DOSE ONE TABLET 0 Melatonin 5 MG CAPS Take by mouth nightly Multiple Vitamin (TAB-A-IRIS) TABS TAKE ONE TABLET BY MOUTH ONCE DAILY 5 mupirocin (BACTROBAN) 2 % ointment nystatin (MYCOSTATIN) powder OLANZapine (ZYPREXA) 10 MG tablet Take 10 mg by mouth nightly omeprazole (PRILOSEC) 40 MG capsule Take 40 mg by mouth daily QUEtiapine (SEROQUEL) 200 MG tablet Take 400 mg by mouth nightly QUEtiapine (SEROQUEL) 25 MG tablet TAKE 1/2 TABLET BY MOUTH @8AM and TAKE 1/2 TABLET @2PM 2 sertraline (ZOLOFT) 100 MG tablet Take 100 mg by mouth daily sertraline (ZOLOFT) 50 MG tablet Take 50 mg by mouth daily timolol maleate (TIMOPTIC) 0.5 % ophthalmic solution INSTILL ONE DROP INT O EACH EYE TWICE DAILY DIRECTED 5 tramadol (ULTRAM) 50 MG tablet TAKE ONE TABLET BY MOUTH EVERY TWELVE HOUR S NEEDED FOR PAIN MAX DAILY DOSE TWO TABLETS 0 No current facility-administered medications on file prior to visit. PMH: Past Medical History: Diagnosis Date Arthritis GERD (gastroesophageal reflux disease) Schizoaffective disorder Thyroid disease Past Surgical History: Procedure Laterality Date ARTHROPLASTY HIP TOTAL REPLACEMENT Left BREAST SURGERY eye lid surgery TONSILLECTOMY SOCIAL AND FAMILY HISTORY: Social History Socioeconomic History Marital status: Single Spouse name: Not on file Number of children: Not on file Years of education: Not on file Highest education level: Not on file Occupational History Not on file Tobacco Use Smoking status: Never Smoker Smokeless tobacco: Never Used Substance and Sexual Activity Alcohol use: No Drug use: No Sexual activity: Not on file Other Topics Concern Not on file Social History Narrative Not on file Social Determinants of Health Financial Resource Strain: Difficulty of Paying Living Expenses: Food Insecurity: Worried About Running Out of Food in the Last Year: Ran Out of Food in the Last Year: Transportation Needs: Lack of Transportation (Medical): Lack of Transportation (Non-Medical): Physical Activity: Days of Exercise per Week: Minutes of Exercise per Session: Stress: Feeling of Stress : Social Connections: Frequency of Communication with Friends and Family: Frequency of Social Gatherings with Friends and Family: Attends [employer] Services: Active Member of Clubs or Organizations: Attends Club or Organization Meetings: Marital Status: Intimate Partner Violence: Fear of Current or Ex-Partner: Emotionally Abused: Physically Abused: Sexually Abused: family history includes Arthritis in her mother and sister; Cancer in her mother ; Diabetes in her father; Heart disease in her father. ROS: The following systems were reviewed: Review of Systems Constitutional: Positive for chills and malaise/fatigue. Negative for diaphoresi s, fever and weight loss. HENT: Negative for congestion, ear discharge, ear pain, hearing loss, nosebleeds , sinus pain, sore throat and tinnitus. Eyes: Negative for blurred vision, double vision, photophobia, pain, discharge a nd redness. Respiratory: Negative for cough, hemoptysis, sputum production, shortness of aleida ath, wheezing and stridor. Cardiovascular: Negative for chest pain, palpitations, orthopnea, claudication, leg swelling and PND. Gastrointestinal: Negative for abdominal pain, blood in stool, constipation, alan rrhea, heartburn, melena, nausea and vomiting. Genitourinary: Negative for dysuria, flank pain, frequency, hematuria and urgenc y. Musculoskeletal: Positive for joint pain and myalgias. Negative for back pain, f alls and neck pain. Skin: Negative for itching and rash. Neurological: Negative for dizziness, tingling, tremors, sensory change, speech change, focal weakness, seizures, loss of consciousness, weakness and headaches. Endo/Heme/Allergies: Negative for environmental allergies and polydipsia. Bruise s/bleeds easily. Psychiatric/Behavioral: Negative for depression, hallucinations, memory loss, quesada bstance abuse and suicidal ideas. The patient is nervous/anxious and has insomni a. Physical Exam: Not applicable Assessment Tati was seen today for follow-up. Diagnoses and all orders for this visit: MCTD (mixed connective tissue disease) ESR raised Polyarthralgia Positive HAYLIE (antinuclear antibody) Rheumatoid factor positive Primary osteoarthritis involving multiple joints Plan I I have ordered labs CBC, CMP and sed rate in last visit. She has not been abl e to go to the lab. She is concerned about the COVID-19 pandemic. She has enou gh refills for hydroxychloroquine. She does not need a new prescription today. She will call me if she needs 1. She is aware of the potential side effects of hydroxychloroquine. The following issues related to Plaquenil (hydroxychloroquine) were discussed wi th the patient: 1. Retinopathy (serum concentration dependent), should follow up with ophthalmol ogist yearly. 2. Gastrointestinal side effects including abdominal pain, decrease appetite, d iarrhea. nausea or vomiting. 3. Dermatologic reactions (anywhere from mild skin reactions to severe skin dax ctions such as SJS or TEN). 4. Hematologic reactions including agranulocytosis, anemia, thrombocytopenia, b one marrow suppression. 5. Neuromuscular and skeletal reactions such as myopathy. 6. Endocrine reactions such as hypoglycemia and weight loss. 7. Cardiovascular reactions such as prolonged QT and ventricular arrhythmias 8. Drug interactions: Drugs that can cause QT prolongation 9. PROFESSOR IN FAMILY STUDIES toxicity such as dizziness, ringing in the ear, irritability etc. I told her to do some quadriceps muscle strengthening exercises to improve the s trength of her knees. She will continue other medications as before. I will see her back in 3 months. Time spent 15 minutes, more than 50% on counseling and coordinating the care. Results for orders placed or performed in visit on 11/05/18 Sedimentation rate, automated Result Value Ref Range Sed Rate - ESR 37 (H) <30 mm/hr Comprehensive Metabolic Panel Result Value Ref Range Albumin 4.6 3.5 - 5.2 g/dL Bilirubin, Total <0.2 <1.2 mg/dL Calcium 9.8 8.6 - 10.0 mg/dL Chloride 104 98 - 107 mmol/L Creatinine 0.64 0.4 - 1.0 mg/dL Glucose 91 70 - 140 mg/dL Alkaline Phosphatase 139 (H) 35 - 104 U/L Potassium 4.3 3.5 - 5.1 mmol/L Total Protein 7.3 6.4 - 8.3 g/dL Sodium 141 136 - 145 mmol/L AST/SGO 20 <32 U/L Blood Urea Nitrogen 16 6 - 20 mg/dL Osmolality, Erasmo 293 275.0 - 300.0 mosm/kg BUN/Cre Ratio 25 Bicarbonate 27 22 - 29 mmol/L ALT/SGP 19 <33 U/L Anion Gap 10 8 - 15 mmol/L A/G Ratio 1.7 GFR Non 2008 CDK-EPI >90 >60 mL/min/1.73m2 GFR 2008 CKD-EPI >90 >60 mL/min/1.73m2 CBC and Differential Result Value Ref Range White Blood Cell 7.4 4.00 - 10.00 10*3/uL Red Blood Cell 4.59 4.10 - 5.30 10*6/uL Hemoglobin 12.3 11.5 - 15.5 g/dL Hematocrit 37.6 36.0 - 45.0 % Mean Cell Volume 82.0 80.0 - 96.0 fL Mean Cell Hemoglobin 26.7 (L) 27.0 - 33.0 pg Mean Cell Hgb Conc 32.6 32 - 36 g/dL Red Cell Dist Width 16.4 (H) 11.5 - 14.5 % Platelet Count 220 150 - 400 10*3/uL Differential Type Automated Diff Neutrophil 75 % Lymphocyte 15 % Monocyte 7 % Eosinophil 2 % Basophil 1 % Abs Neutrophil 5.54 1.80 - 7.00 10*3/uL Abs Lymphocyte 1.13 (L) 1.20 - 4.00 10*3/uL Abs Monocyte 0.53 0.00 - 0.80 10*3/uL Abs Eosinophil 0.17 0.00 - 0.50 10*3/uL Abs Basophil 0.03 0.00 - 0.20 10*3/uL Nucleated Red Blood Cells 0 0 - 0 /100 \\ documented in this encounter Plan of Treatment Care Team Description Date Type Specialty Patricia Dozier MD [address] [facility] [place] [address] [phone] 09/06/2021 Office Visit Rheumatology Health Maintenance Due Date Last Done Comments Hepatitis C Screening (B. 1960 [id number]) MMR Vaccines (1 of 1 - 1961 Standard series) Varicella Vaccines (1 of 1961 2 - 2-dose childhood series) DTaP,Tdap,and Td Vaccines 1967 (1 - Tdap) HIV Screening 1973 Cervical Cancer Screening 1981 5 years Breast Cancer Screening 2 2010 years Colon Cancer Screening 10 2010 yrs Zoster Vaccines (1 of 2) 2010 Influenza Vaccine 05/28/2021 06/16/2020, 06/07/2019, 06/05/2017, Additional history exists Pneumococcal Vaccine: 65+ 2025 Years (1 of 1 - PPSV23) HIB Vaccines Aged Out No longer eligible based on patient's age to complete this topic Hepatitis A Vaccines Aged Out No longer eligibl e based on patient's age to complete this topic Hepatitis B Vaccines Aged Out No longer eligibl e based on patient's age to complete this topic IPV Vaccines Aged Out No longer eligible based on patient's age to complete this topic Pneumococcal Vaccine: Aged Out No longer eligib le based on patient's age to Pediatrics (0 to 5 Years) complete this topic and At-Risk Patients (6 to 64 Years) documented as of this encounter Results Not on filedocumented in this encounter Visit Diagnoses Diagnosis MCTD (mixed connective tissue disease) - Primary Other specified diffuse disease of conn ective tissue ESR raised Elevated sedimentation rate Polyarthralgia Pain in joint, multiple sites Positive HAYLIE (antinuclear antibody) Other and unspecified nonspecific immun ological findings Rheumatoid factor positive Other and unspecified nonspecific immun ological findings Primary osteoarthritis involving multip le joints documented in this encounter
--- OUTSIDE RECORDS SUMMARY | 2021-06-18 07:35 | CCD ---
Author Author [facility] Organization [facility] Address Unknown Phone Unavailable Care Team Providers Care Clinical Nurse Occupational Medicine Name Role Phone Estee, L Patsy PROCESS IMPROVEMENT ENGINEER Unavailable Unavailable Estee, L Patsy PROCESS IMPROVEMENT ENGINEER Unavailable Unavailable Estee, L Patsy PROCESS IMPROVEMENT ENGINEER Unavailable Unavailable Estee, L Patsy PROCESS IMPROVEMENT ENGINEER Unavailable Unavailable Estee, L Patsy PROCESS IMPROVEMENT ENGINEER Unavailable Unavailable Estee, L Patsy PROCESS IMPROVEMENT ENGINEER Unavailable Unavailable Estee, L Patsy PROCESS IMPROVEMENT ENGINEER Unavailable Unavailable Estee, L Patsy PROCESS IMPROVEMENT ENGINEER Unavailable Unavailable Estee, L Patsy PROCESS IMPROVEMENT ENGINEER Unavailable Unavailable Estee, L Patsy PROCESS IMPROVEMENT ENGINEER Unavailable Unavailable Estee, L Patsy PROCESS IMPROVEMENT ENGINEER Unavailable Unavailable Estee, L Patsy PROCESS IMPROVEMENT ENGINEER Unavailable Unavailable Estee, L Patsy PROCESS IMPROVEMENT ENGINEER Unavailable Unavailable Estee, L Patsy PROCESS IMPROVEMENT ENGINEER Unavailable Unavailable Estee, L Patsy PROCESS IMPROVEMENT ENGINEER Unavailable Unavailable Estee, L Patsy PROCESS IMPROVEMENT ENGINEER Unavailable Unavailable Estee, L Patsy PROCESS IMPROVEMENT ENGINEER Unavailable Unavailable Estee, L Patsy PROCESS IMPROVEMENT ENGINEER Unavailable Unavailable Estee, L Patsy PROCESS IMPROVEMENT ENGINEER Unavailable Unavailable Estee, L Patsy PROCESS IMPROVEMENT ENGINEER Unavailable Unavailable Estee, L Patsy PROCESS IMPROVEMENT ENGINEER Unavailable Unavailable Estee, L Patsy PROCESS IMPROVEMENT ENGINEER Unavailable Unavailable Estee, L Patsy PROCESS IMPROVEMENT ENGINEER Unavailable Unavailable Estee, L Patsy PROCESS IMPROVEMENT ENGINEER Unavailable Unavailable Estee, L Patsy PROCESS IMPROVEMENT ENGINEER Unavailable Unavailable Paul B Carlos LEMONS Unavailable Unavailable Paul B Carlos LEMONS Unavailable Unavailable Helena Miller MD Unavailable Unavailable Fish, B Carlos LEMONS Unavailable Unavailable Fish, B Carlos LEMONS Unavailable Unavailable Fish, B Carlos LEMONS Unavailable Unavailable Fish, B Carlos LEMONS Unavailable Unavailable Fish, B Carlos LEMONS Unavailable Unavailable Fish, B Carlos LEMONS Unavailable Unavailable Fish, B Carlos LEMONS Unavailable Unavailable Fish, B Carlos LEMONS Unavailable Unavailable Fish, B Carlos LEMONS Unavailable Unavailable Fish, B Carlos LEMONS Unavailable Unavailable Fish, B Carlos LEMONS Unavailable Unavailable Fish, B Carlos LEMONS Unavailable Unavailable Fish, B Carlos LEMONS Unavailable Unavailable Fish, B Carlos LEMONS Unavailable Unavailable Fish, B Carlos LEMONS Unavailable Unavailable Fish, B Carlos LEMONS Unavailable Unavailable Fish, B Carlos LEMONS Unavailable Unavailable Fish, B Carlos LEMONS Unavailable Unavailable Fish, B Carlos LEMONS Unavailable Unavailable Fish, B Carlos LEMONS Unavailable Unavailable Fish, B Carlos LEMONS Unavailable Unavailable Fish, B Carlos LEMONS Unavailable Unavailable Fish, B Carlos LEMONS Unavailable Unavailable Fish, B Carlos LEMONS Unavailable Unavailable Fish, B Carlos LEMONS Unavailable Unavailable Fish, B Carlos LEMONS Unavailable Unavailable Fish, B Carlos LEMONS Unavailable Unavailable Fish, B Carlos LEMONS Unavailable Unavailable Fish, B Carlos LEMONS Unavailable Unavailable Fish, B Carlos LEMONS Unavailable Unavailable Fish, B Carlos LEMONS Unavailable Unavailable Fish, B Carlos LEMONS Unavailable Unavailable Fish, B Carlos LEMONS Unavailable Unavailable Fish, B Carlos LEMONS Unavailable Unavailable Fish, B Carlos LEMONS Unavailable Unavailable Fish, B Carlos LEMONS Unavailable Unavailable Fish, B Carlos LEMONS Unavailable Unavailable Fish, B Carlos LEMONS Unavailable Unavailable Fish, B Carlos LEMONS Unavailable Unavailable Fish, B Carlos LEMONS Unavailable Unavailable Fish, B Carlos LEMONS Unavailable Unavailable Fish, B Carlos LEMONS Unavailable Unavailable Fish, B Carlos LEMONS Unavailable Unavailable Fish, B Carlos LEMONS Unavailable Unavailable Fish, B Carlos LEMONS Unavailable Unavailable Fish, B Carlos LEMONS Unavailable Unavailable Fish, B Carlos LEMONS Unavailable Unavailable Fish, B Carlos LEMONS Unavailable Unavailable Fish, B Carlos LEMONS Unavailable Unavailable Fish, B Carlos LEMONS Unavailable Unavailable Fish, B Carlos LEMONS Unavailable Unavailable Fish, B Carlos LEMONS Unavailable Unavailable Fish, B Carlos LEMONS Unavailable Unavailable Fish, Frances Madriden [facility], PA-C Unavailable Unavailabl e Fish, Frances Don [facility], PA-C Unavailable Unavailabl e Fish, Frances Don [facility], PA-C Unavailable Unavailabl e Fish, Francesanish Don [facility], PA-C Unavailable Unavailabl e Fish, Frances Florencia [facility], PA-C Unavailable Unavailabl e Fish, [facility], PA-C Unavailable Unavailabl e Fish, [facility], PA-C Unavailable Unavailabl e Fish, [facility], PA-C Unavailable Unavailabl e Fish, [facility], PA-C Unavailable Unavailabl e Fish, [facility], PA-C Unavailable Unavailabl e Fish, [facility], PA-C Unavailable Unavailabl e Fish, [facility], PA-C Unavailable Unavailabl e Fish, [facility], PA-C Unavailable Unavailabl e Fish, [facility], PA-C Unavailable Unavailabl e Fish, [facility], PA-C Unavailable Unavailabl e Fish, [facility], PA-C Unavailable Unavailabl e Fish, [facility], PA-C Unavailable Unavailabl e Fish, [facility], PA-C Unavailable Unavailabl e Fish, [facility], PA-C Unavailable Unavailabl e Fish, [facility], PA-C Unavailable Unavailabl e Fish, [facility], PA-C Unavailable Unavailabl e Fish, [facility], PA-C Unavailable Unavailabl e Fish, [facility], PA-C Unavailable Unavailabl e Fish, [facility], PA-C Unavailable Unavailabl e Fish, [facility], PA-C Unavailable Unavailabl e Fish, [facility], PA-C Unavailable Unavailabl e Fish, [facility], PA-C Unavailable Unavailabl e Fish, [facility], PA-C Unavailable Unavailabl e Fish, [facility], PA-C Unavailable Unavailabl e Fish, [facility], PA-C Unavailable Unavailabl e Fish, [facility], PA-C Unavailable Unavailabl e Fish, [facility], PA-C Unavailable Unavailabl e Fish, [facility], PA-C Unavailable Unavailabl e Fish, [facility], PA-C Unavailable Unavailabl e Fish, [facility], PA-C Unavailable Unavailabl e Fish, [facility], PA-C Unavailable Unavailabl e Dille, E Kasandra DDS Unavailable Unavailable Dille, E Kasandra DDS Unavailable Unavailable Dille, E Kasandra DDS Unavailable Unavailable Dille, E Kasandra DDS Unavailable Unavailable MACQUEEN, KEMI PROCESS IMPROVEMENT ENGINEER Unavailable Unavailable MACQUEEN, KEMI PROCESS IMPROVEMENT ENGINEER Unavailable Unavailable MACQUEEN, KEMI PROCESS IMPROVEMENT ENGINEER Unavailable Unavailable MACQUEEN, KEMI PROCESS IMPROVEMENT ENGINEER Unavailable Unavailable MACQUEEN, KMEI PROCESS IMPROVEMENT ENGINEER Unavailable Unavailable MACQUEEN, KEMI PROCESS IMPROVEMENT ENGINEER Unavailable Unavailable MACQUEEN, KEMI PROCESS IMPROVEMENT ENGINEER Unavailable Unavailable MACQUEEN, KEMI PROCESS IMPROVEMENT ENGINEER Unavailable Unavailable MACQUEEN, KEMI PROCESS IMPROVEMENT ENGINEER Unavailable Unavailable MACQUEEN, KEMI PROCESS IMPROVEMENT ENGINEER Unavailable Unavailable BRYSON, P CAIO MD Unavailable Unavailable BRYSON, P CAIO MD Unavailable Unavailable BRYSON, P CAIO MD Unavailable Unavailable BRYSON, P CAIO MD Unavailable Unavailable BRYSON, P CAIO MD Unavailable Unavailable BRYSON, P CAIO MD Unavailable Unavailable BRYSON, P CAIO MD Unavailable Unavailable BRYSON, P CAIO MD Unavailable Unavailable BRYSON, P CAIO MD Unavailable Unavailable BRYSON, P CAIO MD Unavailable Unavailable BRYSON, P CAIO MD Unavailable Unavailable BRYSON, P CAIO MD Unavailable Unavailable BRYSON, P CAIO MD Unavailable Unavailable BRYSON, P CAIO MD Unavailable Unavailable BRYSON, P CAIO MD Unavailable Unavailable BRYSON, P CAIO MD Unavailable Unavailable BRYSON, P CAIO MD Unavailable Unavailable BRYSON, P CAIO MD Unavailable Unavailable BRYSON, P CAIO MD Unavailable Unavailable BRYSON, P CAIO MD Unavailable Unavailable BRYSON, P CAIO MD Unavailable Unavailable BRYSON, P CAIO MD Unavailable Unavailable BRYSON, P CAIO MD Unavailable Unavailable BRYSON, P CAIO MD Unavailable Unavailable BRYSON, P CAIO MD Unavailable Unavailable BRYSON, P CAIO MD Unavailable Unavailable BRYSON, P CAIO MD Unavailable Unavailable BRYSON, P CAIO MD Unavailable Unavailable BRYSON, P CAIO MD Unavailable Unavailable BRYSON, P CAIO MD Unavailable Unavailable BRYSON, P CAIO MD Unavailable Unavailable BRYSON, P CAIO MD Unavailable Unavailable BRYSON, P CAIO MD Unavailable Unavailable BRYSON, P CAIO MD Unavailable Unavailable BRYSON, P CAIO MD Unavailable Unavailable BRYSON, P CAIO MD Unavailable Unavailable BRYSON, P CAIO MD Unavailable Unavailable BRYSON, P CAIO MD Unavailable Unavailable BRYSON, P CAIO MD Unavailable Unavailable BRYSON, P CAIO MD Unavailable Unavailable BRYSON, P CAIO MD Unavailable Unavailable BRYSON, P CAIO MD Unavailable Unavailable BRYSON, P CAIO MD Unavailable Unavailable BRYSON, P CAIO MD Unavailable Unavailable BRYSON, P CAIO MD Unavailable Unavailable BRYSON, P CAIO MD Unavailable Unavailable BRYSON, P CAIO MD Unavailable Unavailable BRYSON, P CAIO MD Unavailable Unavailable BRYSON, P CAIO MD Unavailable Unavailable BRYSON, P CAIO MD Unavailable Unavailable BRYSON, P CAIO MD Unavailable Unavailable BRYSON, P CAIO MD Unavailable Unavailable BRYSON, P CAIO MD Unavailable Unavailable BRYSON, P CAIO MD Unavailable Unavailable BRYSON, P CAIO MD Unavailable Unavailable BRYSON, P CAIO MD Unavailable Unavailable BRYSON, P CAIO MD Unavailable Unavailable BRYSON, P CAIO MD Unavailable Unavailable BRYSON, P CAIO MD Unavailable Unavailable BRYSON, P CAIO MD Unavailable Unavailable BRYSON, P CAIO MD Unavailable Unavailable BRYSON, P CAIO MD Unavailable Unavailable BRYSON, P CAIO MD Unavailable Unavailable BRYSON, P CAIO MD Unavailable Unavailable BRYSON, P CAIO MD Unavailable Unavailable BRYSON, P CAIO MD Unavailable Unavailable BRYSON, P CAIO MD Unavailable Unavailable BRYSON, P CAIO MD Unavailable Unavailable BRYSON, P CAIO MD Unavailable Unavailable BRYSON, P CAIO MD Unavailable Unavailable BRYSON, P CAIO MD Unavailable Unavailable BRYSON, P CAIO MD Unavailable Unavailable BRYSON, P CAIO MD Unavailable Unavailable BRYSON, P CAIO MD Unavailable Unavailable BRYSON, P CAIO MD Unavailable Unavailable BRYSON, P CAIO MD Unavailable Unavailable BRYSON, P CAIO MD Unavailable Unavailable BRYSON, P CAIO MD Unavailable Unavailable BRYSON, P CAIO MD Unavailable Unavailable BRYSON, P CAIO MD Unavailable Unavailable BRYSON, P CAIO MD Unavailable Unavailable BRYSON, P CAIO MD Unavailable Unavailable BRYSON, P CAIO MD Unavailable Unavailable BRYSON, P CAIO MD Unavailable Unavailable BRYSON, P CAIO MD Unavailable Unavailable BRYSON, P CAIO MD Unavailable Unavailable BRYSON, P CAIO MD Unavailable Unavailable BRYSON, P CAIO MD Unavailable Unavailable BRYSON, P CAIO MD Unavailable Unavailable BRYSON, P CAIO MD Unavailable Unavailable BRYSON, P CAIO MD Unavailable Unavailable BRYSON, P CAIO MD Unavailable Unavailable BRYSON, P CAIO MD Unavailable Unavailable Goutremout, Elizabeth Unavailable Servage, L Zaina PROCESS IMPROVEMENT ENGINEER Unavailable Unavailable Servage, L Zaina PROCESS IMPROVEMENT ENGINEER Unavailable Unavailable Servage, L Zaina PROCESS IMPROVEMENT ENGINEER Unavailable Unavailable Servage, L Zaina PROCESS IMPROVEMENT ENGINEER Unavailable Unavailable Servage, L Zaina PROCESS IMPROVEMENT ENGINEER Unavailable Unavailable Servage, L Zaina PROCESS IMPROVEMENT ENGINEER Unavailable Unavailable Servage, L Zaina PROCESS IMPROVEMENT ENGINEER Unavailable Unavailable Servage, L Zaina PROCESS IMPROVEMENT ENGINEER Unavailable Unavailable Servage, L Zaina PROCESS IMPROVEMENT ENGINEER Unavailable Unavailable Servage, L Zaina PROCESS IMPROVEMENT ENGINEER Unavailable Unavailable Servage, L Zaina PROCESS IMPROVEMENT ENGINEER Unavailable Unavailable Servage, L Zaina PROCESS IMPROVEMENT ENGINEER Unavailable Unavailable Servage, L Zaina PROCESS IMPROVEMENT ENGINEER Unavailable Unavailable Servage, L Zaina PROCESS IMPROVEMENT ENGINEER Unavailable Unavailable Servage, L Zaina PROCESS IMPROVEMENT ENGINEER Unavailable Unavailable Servage, L Zaina PROCESS IMPROVEMENT ENGINEER Unavailable Unavailable Servage, L Zaina PROCESS IMPROVEMENT ENGINEER Unavailable Unavailable Servage, L Zaina PROCESS IMPROVEMENT ENGINEER Unavailable Unavailable Servage, L Zaina PROCESS IMPROVEMENT ENGINEER Unavailable Unavailable Servage, L Zaina PROCESS IMPROVEMENT ENGINEER Unavailable Unavailable Servage, L Zaina PROCESS IMPROVEMENT ENGINEER Unavailable Unavailable Servage, L Zaina PROCESS IMPROVEMENT ENGINEER Unavailable Unavailable Servage, L Zaina PROCESS IMPROVEMENT ENGINEER Unavailable Unavailable Servage, L Zaina PROCESS IMPROVEMENT ENGINEER Unavailable Unavailable Servage, L Zaina PROCESS IMPROVEMENT ENGINEER Unavailable Unavailable Servage, L Zaina PROCESS IMPROVEMENT ENGINEER Unavailable Unavailable Servage, L Zaina PROCESS IMPROVEMENT ENGINEER Unavailable Unavailable Servage, L Zaina PROCESS IMPROVEMENT ENGINEER Unavailable Unavailable Servage, L Zaina PROCESS IMPROVEMENT ENGINEER Unavailable Unavailable Servage, L Zaina PROCESS IMPROVEMENT ENGINEER Unavailable Unavailable Servage, L Zaina PROCESS IMPROVEMENT ENGINEER Unavailable Unavailable Servage, L Zaina PROCESS IMPROVEMENT ENGINEER Unavailable Unavailable Servage, L Zaina PROCESS IMPROVEMENT ENGINEER Unavailable Unavailable Servage, L Zaina PROCESS IMPROVEMENT ENGINEER Unavailable Unavailable Servage, L Zaina PROCESS IMPROVEMENT ENGINEER Unavailable Unavailable Servage, L Zaina PROCESS IMPROVEMENT ENGINEER Unavailable Unavailable Servage, L Zaina PROCESS IMPROVEMENT ENGINEER Unavailable Unavailable Servage, L Zaina PROCESS IMPROVEMENT ENGINEER Unavailable Unavailable Servage, L Zaian PROCESS IMPROVEMENT ENGINEER Unavailable Unavailable Servage, L Zaina PROCESS IMPROVEMENT ENGINEER Unavailable Unavailable Servage, L Zaina PROCESS IMPROVEMENT ENGINEER Unavailable Unavailable Servage, L Zaina PROCESS IMPROVEMENT ENGINEER Unavailable Unavailable Servage, L Zaina PROCESS IMPROVEMENT ENGINEER Unavailable Unavailable Servage, L Zaina PROCESS IMPROVEMENT ENGINEER Unavailable Unavailable Servage, L Zaina PROCESS IMPROVEMENT ENGINEER Unavailable Unavailable Servage, L Zaina PROCESS IMPROVEMENT ENGINEER Unavailable Unavailable Servage, L Zaina PROCESS IMPROVEMENT ENGINEER Unavailable Unavailable Servage, L Zaina PROCESS IMPROVEMENT ENGINEER Unavailable Unavailable Servage, L Zaina PROCESS IMPROVEMENT ENGINEER Unavailable Unavailable Servage, L Zaina PROCESS IMPROVEMENT ENGINEER Unavailable Unavailable Servage, L Zaina PROCESS IMPROVEMENT ENGINEER Unavailable Unavailable Servage, L Zaina PROCESS IMPROVEMENT ENGINEER Unavailable Unavailable Servage, L Zaina PROCESS IMPROVEMENT ENGINEER Unavailable Unavailable Servage, L Zaina PROCESS IMPROVEMENT ENGINEER Unavailable Unavailable Servage, L Zaina PROCESS IMPROVEMENT ENGINEER Unavailable Unavailable Servage, L Zaina PROCESS IMPROVEMENT ENGINEER Unavailable Unavailable Servage, L Zaina PROCESS IMPROVEMENT ENGINEER Unavailable Unavailable Servage, L Zaina PROCESS IMPROVEMENT ENGINEER Unavailable Unavailable Servage, L Zaina PROCESS IMPROVEMENT ENGINEER Unavailable Unavailable Servage, L Zaina PROCESS IMPROVEMENT ENGINEER Unavailable Unavailable Servage, L Zaina PROCESS IMPROVEMENT ENGINEER Unavailable Unavailable Servage, L Zaina PROCESS IMPROVEMENT ENGINEER Unavailable Unavailable Servage, L Zaina PROCESS IMPROVEMENT ENGINEER Unavailable Unavailable Servage, L Zaina PROCESS IMPROVEMENT ENGINEER Unavailable Unavailable Servage, L Zaina PROCESS IMPROVEMENT ENGINEER Unavailable Unavailable Re-disclosure Warning The records that you are about to access may contain information from federally-assisted alcohol or drug abuse programs. If such information is present, then the following federally mandated warning applies: This information has been disclosed to you from records protected by federal confidentiality rules (42 CFR part 2). The federal rules prohibit you from making any further disclosure of this information unless further disclosure is expressly permitted by the written consent of the person to whom it pertains or as otherwise permitted by 42 CFR part 2. A general authorization for the release of medical or other information is NOT sufficient for this purpose. The Federal rules restrict any use of the information to criminally investigate or prosecute any alcohol or drug abuse patient.The records that you are about to access may contain highly sensitive health information, the redisclosure of which is protected by Article 27-F of the [facility] Public Health law. If you continue you may have access to information: Regarding HIV / AIDS; Provided by facilities licensed or operated by the [facility] Office of Mental Health; or Provided by the [facility] Office for People With Developmental Disabilities. If such information is present, then the following [facility] mandated warning applies: This information has been disclosed to you from confidential records which are protected by state law. State law prohibits you from making any further disclosure of this information without the specific written consent of the person to whom it pertains, or as otherwise permitted by law. Any unauthorized further disclosure in violation of state law may result in a fine or skilled nursing sentence or both. A general authorization for the release of medical or other information is NOT sufficient authorization for further disc losure. Family History Family Member Name Family Member Gender Family Member Status Date o f Status Description Data Source(s) Unknown Female Problem [facility] ([facility]) Encounters Encounter Providers Location Date Indications Data Source(s ) Outpatient Attender: CAIO MASSEY MD 09/06/2021 12:00:00 AM [facility] Outpatient Attender: KEMI GREY NP [facility] savanna 06/16/2021 11:30:00 AM EDT - 06/16/2021 11:30:00 AM EDT [facility] ([facility]) Unknown [address] [facility] [address] 06/16/2021 12:00:00 AM EDT eCW1 ([facility]) [place] [address] [facility] [facility] [place] [address] 06/16/2021 12:00:00 AM EDT eCW1 ([facility]) Attender: KEMI GREY NP 06/16/2021 12:00:00 AM EDT [facility] ([facility]) Unknown [address] [facility] [address] 06/15/2021 12:00:00 AM EDT eCW1 ([facility]) Extended Individual Psychotherapy - 45 min Attender: Michelle Ghosh [facility] 06/11/2021 12:45:00 PM EDT - 06/11/2021 12:45:00 PM EDT [facility] ([facility]) Attender: Elizabeth Ghosh 06/11/2021 12:00:0 0 AM EDT [facility] ([facility]) Unknown [address] [facility] [address] 06/07/2021 12:00:00 AM EDT eCW1 ([facility]) Unknown [address] [facility] [address] 06/03/2021 12:00:00 AM EDT eCW1 ([facility]) Unknown [address] [facility] [address] 05/31/2021 12:00:00 AM EDT eCW1 ([facility]) [place] [address] [facility] [address] 05/25/2021 12:00:00 AM EDT eCW1 ([facility]) Extended Individual Psychotherapy - 45 min Attender: Michelle Ghosh [facility] [place] 05/20/2021 02:30:00 AM EDT - 05/20/2021 02:30:00 AM EDT [facility] ([facility]) Attender: Elizabeth Ghosh 05/20/2021 12:00:0 0 AM EDT [facility] ([facility]) Unknown [address] [facility] [address] 05/17/2021 12:00:00 AM EDT eCW1 ([facility]) Unknown [address] [facility] [id number] 05/17/2021 12:00:00 AM EDT eCW1 ([facility]) Unknown [address] [facility] [address] 05/11/2021 12:00:00 AM EDT eCW1 ([facility]) Attender: KEMI GREY NP 04/29/2021 12:00:00 AM EDT [facility] ([facility]) Outpatient Attender: KEMI GREY NP [facility] [place] 04/28/2021 10:30:00 AM EDT - 04/28/2021 10:30:00 AM EDT [facility] ([facility]) Office Visit, Est Pt., Level 3 PC [address] [place] [address] 04/26/2021 12:00:00 AM EDT eCW1 ([facility]) Unknown [address] [facility] [address] 04/16/2021 12:00:00 AM EDT eCW1 ([facility]) Outpatient Attender: KEMI GREY NP [facility] [place] 04/14/2021 10:30:00 AM EDT - 04/14/2021 10:30:00 AM EDT [facility] Attender: KEMI GREY NP 04/14/2021 12:00:00 AM EDT [facility] ([facility]) Unknown [address] [facility] [address] 04/14/2021 12:00:00 AM EDT eCW1 ([facility]) Extended Individual Psychotherapy - 45 min Attender: Michelle Ghosh [facility] 03/26/2021 01:00:00 AM EDT - 03/26/2021 01:00:00 AM EDT [facility] ([facility]) Attender: Elizabeth Ghosh 03/26/2021 12:00:0 0 AM EDT [facility] ([facility]) Unknown [address] [facility] [address] 03/18/2021 12:00:00 AM EDT eCW1 ([facility]) Office Visit, Est Pt., Level 2 FC [address] [place] [address] 03/10/2021 12:00:00 AM EDT eCW1 ([facility]) Outpatient Attender: CAIO MASSEY MD [id number] 12:00:00 AM EDT - 03/22/2021 10:36:27 AM T [facility] Unknown [address] [facility] [address] 03/05/2021 12:00:00 AM EDT eCW1 ([facility]) Outpatient Attender: Patsy Grayson/Ramón/Benton/Millie 03/03/2021 11:00:00 AM EDT [facility] ([facility]) Unknown [address] [facility] [address] 01/06/2021 12:00:00 AM EDT eCW1 ([facility]) Office Visit Attender: Florencia HARRISON PA-C Physical Therapy 12/30/2020 09:15:00 AM EDT [facility] ([facility]) Unknown [address] [facility] [address] 12/28/2020 12:00:00 AM EDT eCW1 ([facility]) Outpatient Attender: KEMI GREY NP [facility] [place] 12/23/2020 11:30:00 AM EDT - 12/23/2020 11:30:00 AM EDT [facility] ([facility]) Attender: KEMI GREY NP 12/23/2020 12:00:00 AM EDT [facility] ([facility]) Extended Individual Psychotherapy - 45 min Attender: Michelle Ghosh [facility] 12/21/2020 02:00:00 AM EDT - 12/21/2020 02:00:00 AM EDT [facility] ([facility]) Attender: Elizabeth Ghosh 12/21/2020 12:00:0 0 AM EDT [facility] ([facility]) Office Visit Attender: Florencia HARRISON PA-C Physical Therapy 12/18/2020 01:00:00 PM EDT [facility] ([facility]) Outpatient Attender: Carlos Miller MD Physical Therapy 12/14/2020 0 1:45:00 PM EDT [facility] ([facility]) Unknown [address] [facility] [address] 12/08/2020 12:00:00 AM EDT eCW1 ([facility]) Unknown [address] [facility] [address] 12/07/2020 12:00:00 AM EDT eCW1 ([facility]) Unknown [address] [facility] [address] 12/04/2020 12:00:00 AM EDT eCW1 ([facility]) Outpatient Attender: CAIO MASSEY MDReferrer: Zania Hernández NP [id number] 11/30/2020 12:00:00 AM EDT - 11/30/2020 02:32:53 PM [facility] Extended Individual Psychotherapy - 45 min Attender: Michelle Ghosh [facility] 11/27/2020 02:30:00 AM EDT - 11/27/2020 02:30:00 AM EDT [facility] ([facility]) Attender: Elizabeth Davina 11/27/2020 12:00:0 0 AM EDT [facility] ([facility]) Extended Individual Psychotherapy - 45 min [facility]: [facility]10[facility]2020 02:00:00 AM EDT - 11/10/2020 02:00:00 AM EDT [facility] ([facility]) Unknown [address] [facility] [address] 11/10/2020 12:00:00 AM EDT eCW1 ([facility]) Attender: Elizabethsergio Ghosh 11/10/2020 12:00:0 0 AM EDT [facility] ([facility]) Unknown [address] [facility] [address] 11/09/2020 12:00:00 AM EDT eCW1 ([facility]) Unknown [address] [facility] [address] 11/09/2020 12:00:00 AM EDT eCW1 ([facility]) Unknown [address] [facility] [address] 11/04/2020 12:00:00 AM EST [facility]CW1 [facility] [id number]"Psychotherapy Attender: Elizabeth Reganslade [facility] 10/23/2020 01:00:00 AM EST - 10/23/2020 01:00:00 AM EST [facility] ([facility]) Attender: Elizabeth Ghosh 10/23/2020 12:00:0 0 AM EST [facility] ([facility]) Unknown [address] [facility] [address] 10/19/2020 12:00:00 AM EST eCW1 [facility] [address] [facility] [place] [address] 10/14/2020 12:00:00 AM EST eCW1 [facility] [address] [facility] [place] [address] 10/12/2020 12:00:00 AM EST eCW1 [facility] [address] [facility] [place] [address] 10/09/2020 12:00:00 AM EST eCW1 [facility] [address] [facility] [place] [address] 10/09/2020 12:00:00 AM EST eCW1 [facility] Office Visit, Est Pt., Level 4 PC [address] [place] [address] 10/08/2020 12:00:00 AM EST eCW1 ([facility]) Extended Individual Psychotherapy - 45 min Attender: Michelle Ghosh [facility] 10/05/2020 03:45:00 AM EST - 10/05/2020 03:45:00 AM EST [facility] ([facility]) Attender: Elizabeth Ghosh 10/05/2020 12:00:0 0 AM EST [facility] ([facility]) Unknown [address] [facility] [address] 09/29/2020 12:00:00 AM EST eCW1 [facility] Outpatient Attender: KEMI GREY NP [facility] 09/16/2020 11:00:00 AM EST - 09/16/2020 11:00:00 AM EST [facility] ([facility]) Unknown [address] [facility] [place] [address] 09/16/2020 12:00:00 AM EST eCW1 [facility] Attender: KEMI GREY NP 09/16/2020 12:00:00 AM EST [facility] ([facility] Unknown [address] [facility] [place] [address] 09/11/2020 12:00:00 AM EST eCW1 ([facility]) Unknown [address] [facility] [place] [address] 09/02/2020 12:00:00 AM EST eCW1 ([facility]) Extended Individual Psychotherapy - 45 min [facility] 02:00:00 AM EST - 08/27/2020 02:00:00 AM EST [facility] ([facility]) Attender: Elizabeth Ghosh 08/27/2020 12:00:0 0 AM EST [facility] ([facility]) Unknown [address] [facility] [place] [address] 08/10/2020 12:00:00 AM EST eCW1 ([facility]) Extended Individual Psychotherapy - 45 min [facility] 08/07/2020 01:00:00 AM EST - 08/07/2020 01:00:00 AM EST [facility] Attender: Elizabeth Ghosh 08/07/2020 12:00:0 0 AM EST [facility] ([facility]) Outpatient Attender: KEMI GREY NP [facility] 08/05/2020 11:00:00 AM EST - 08/05/2020 11:00:00 AM EST [facility] ([facility]) Attender: KEMI GREY NP 08/05/2020 12:00:00 AM EST [facility] ([facility]) Unknown [address] [facility] [place] [address] 07/20/2020 12:00:00 AM EST eCW1 ([facility]) Unknown [address] [facility] [place] [address] 07/08/2020 12:00:00 AM EST eCW1 ([facility]) Unknown [address] [facility] [place] [address] 07/03/2020 12:00:00 AM EST eCW1 [facility] [address] [facility] [place] [address] 07/01/2020 12:00:00 AM EST eCW1 [facility] TEMPMHCTelemed 30" Psychotherapy Attender: Elizabeth trammell [facility] 06/29/2020 01:50:00 AM EST - 06/29/2020 01:50:00 AM EST [facility] ([facility]) Attender: Elizabeth Ghosh 06/29/2020 12:00:0 0 AM EST [facility] ([facility]) Extended Individual Psychotherapy - 45 min Attender: Michelle Ghosh [facility] 06/26/2020 01:00:00 AM EDT - 06/26/2020 01:00:00 AM EDT [facility] ([facility]) Attender: Elizabeth Ghosh 06/26/2020 12:00:0 0 AM EDT [facility] ([facility]) Unknown [address] [facility] [place] [address] 06/23/2020 12:00:00 AM EDT eCW1 [facility] Outpatient [address] [facility] [place] [address] 06/16/2020 12:00:00 AM EDT eCW1 ([facility]) Outpatient [address] [facility] [place] [address] 06/15/2020 12:00:00 AM EDT eCW1 [facility] Extended Individual Psychotherapy - 45 min Attender: Michelle Ghosh [facility] 06/09/2020 02:45:00 AM EDT - 06/09/2020 02:45:00 AM EDT [facility] ([facility]) Attender: Elizabeth Ghosh 06/09/2020 12:00:0 0 AM EDT [facility] ([facility]) Office Visit, Est Pt., Level 3 PC [address] [place] [address] 06/08/2020 12:00:00 AM EDT eCW1 ([facility]) Outpatient Attender: CAIO MASSEY JOSELITOeferrer: Zaina Hernández PROCESS IMPROVEMENT ENGINEER [id number] 06/02/2020 12:00:00 AM EDT - 06/02/2020 12:27:43 PM EDT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 [facility]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 Extended Individual Psychotherapy - 45 min Attender: Michelle Ghosh [facility] 05/26/2020 02:30:00 AM EDT - 05/26/2020 02:30:00 AM EDT [facility] ([facility]) Attender: Elizabeth Ghosh 05/26/2020 12:00:0 0 AM EDT [facility] ([facility]) [facility] 05/21/2020 10:00:00 AM EDT - 05/21/2020 10:00:00 AM EDT [facility] ([facility] Attender: KEMI GREY NP 05/21/2020 12:00:00 AM EDT [facility] ([facility]) Office Visit Attender: Florencia HARRISON PA-C Physical Therapy 05/14/2020 08:30:00 AM EDT [facility] ([facility]) Outpatient Attender: Kasandra GILES 05/14/2020 07:14:01 A M EDT [facility] Outpatient Attender: Kasandra GILES 05/13/2020 10:11:00 A M EDT [facility] Outpatient Attender: Kasandra GILES 05/13/2020 08:40:00 A M EDT [facility] Outpatient Attender: Kasandra GILES 05/12/2020 03:58:00 P M EDT [facility] Outpatient Attender: Kasandra GILES 05/12/2020 01:39:01 P M EDT [facility] Outpatient Attender: Kasandra Bull [facility] [place] 05/12/2020 01:16:01 P M EDT [facility] Outpatient Attender: Kas[facility] 05/11/2020 03:47:01 P M EDT [facility] Office Visit Attender: Florencia Paul HARRISON PA-C Physical Therapy 05/07/2020 08:45:00 AM EDT [facility] ([facility]) Functional Status Immunizations Vaccine Date Status Description Data Source(s) influenza, recombinant, quadrIvalent,injectable, prese rvative free 06/16/2020 03:29:00 PM EDT completed eCW1 ([facility]) influenza, recombinant, quadrIvalent,injectable, prese rvative free 06/16/2020 03:29:00 PM EDT completed eCW1 ([facility]) influenza, recombinant, quadrIvalent,injectable, prese rvative free 06/16/2020 03:29:00 PM EDT completed eCW1 ([facility]) influenza, recombinant, quadrIvalent,injectable, prese rvative free 06/16/2020 03:29:00 PM EDT completed eCW1 ([facility]) influenza, recombinant, quadrIvalent,injectable, prese rvative free 06/16/2020 03:29:00 PM EDT completed eCW1 ([facility]) influenza, recombinant, quadrIvalent,injectable, prese rvative free 06/16/2020 03:29:00 PM EDT completed eCW1 ([facility]) influenza, recombinant, quadrIvalent,injectable, prese rvative free 06/16/2020 03:29:00 PM EDT completed eCW1 ([facility]) influenza, recombinant, quadrIvalent,injectable, prese rvative free 06/16/2020 03:29:00 PM EDT completed eCW1 ([facility]) influenza, recombinant, quadrIvalent,injectable, prese rvative free 06/16/2020 03:29:00 PM EDT completed eCW1 ([facility]) influenza, recombinant, quadrIvalent,injectable, prese rvative free 06/16/2020 03:29:00 PM EDT completed eCW1 ([facility]) influenza, recombinant, quadrIvalent,injectable, prese rvative free 06/16/2020 03:29:00 PM EDT completed eCW1 ([facility]) influenza, recombinant, quadrIvalent,injectable, prese rvative free 06/16/2020 03:29:00 PM EDT completed eCW1 ([facility]) influenza, recombinant, quadrIvalent,injectable, prese rvative free 06/16/2020 03:29:00 PM EDT completed eCW1 ([facility]) influenza, recombinant, quadrIvalent,injectable, prese rvative free 06/16/2020 03:29:00 PM EDT completed eCW1 ([facility]) influenza, recombinant, quadrIvalent,injectable, prese rvative free 06/16/2020 03:29:00 PM EDT completed eCW1 ([facility]) influenza, recombinant, quadrIvalent,injectable, prese rvative free 06/16/2020 03:29:00 PM EDT completed eCW1 ([facility]) influenza, recombinant, quadrIvalent,injectable, prese rvative free 06/16/2020 03:29:00 PM EDT completed eCW1 ([facility]) influenza, recombinant, quadrIvalent,injectable, prese rvative free 06/16/2020 03:29:00 PM EDT completed eCW1 ([facility]) influenza, recombinant, quadrIvalent,injectable, prese rvative free 06/16/2020 03:29:00 PM EDT completed eCW1 ([facility]) influenza, recombinant, quadrIvalent,injectable, prese rvative free 06/16/2020 03:29:00 PM EDT completed eCW1 ([facility]) influenza, recombinant, quadrIvalent,injectable, prese rvative free 06/16/2020 03:29:00 PM EDT completed eCW1 ([facility]) influenza, recombinant, quadrIvalent,injectable, prese rvative free 06/16/2020 03:29:00 PM EDT completed eCW1 ([facility]) influenza, recombinant, quadrIvalent,injectable, prese rvative free 06/16/2020 03:29:00 PM EDT completed eCW1 ([facility]) influenza, recombinant, quadrIvalent,injectable, prese rvative free 06/16/2020 03:29:00 PM EDT completed eCW1 ([facility]) influenza, recombinant, quadrIvalent,injectable, prese rvative free 06/16/2020 03:29:00 PM EDT completed eCW1 ([facility]) influenza, recombinant, quadrIvalent,injectable, prese rvative free 06/16/2020 03:29:00 PM EDT completed eCW1 ([facility]) influenza, recombinant, quadrIvalent,injectable, prese rvative free 06/16/2020 03:29:00 PM EDT completed eCW1 ([facility]) influenza, recombinant, quadrIvalent,injectable, prese rvative free 06/16/2020 03:29:00 PM EDT completed eCW1 ([facility]) influenza, recombinant, quadrIvalent,injectable, prese rvative free 06/16/2020 03:29:00 PM EDT completed eCW1 ([facility]) influenza, recombinant, quadrIvalent,injectable, prese rvative free 06/16/2020 03:29:00 PM EDT completed eCW1 ([facility]) influenza, recombinant, quadrIvalent,injectable, prese rvative free 06/16/2020 03:29:00 PM EDT completed eCW1 ([facility]) influenza, recombinant, quadrIvalent,injectable, prese rvative free 06/16/2020 03:29:00 PM EDT completed eCW1 ([facility]) influenza, recombinant, quadrIvalent,injectable, prese rvative free 06/16/2020 03:29:00 PM EDT completed eCW1 ([facility]) influenza, recombinant, quadrIvalent,injectable, prese rvative free 06/16/2020 03:29:00 PM EDT completed eCW1 ([facility]) influenza, recombinant, quadrIvalent,injectable, prese rvative free 06/16/2020 03:29:00 PM EDT completed eCW1 ([facility]) influenza, recombinant, quadrIvalent,injectable, prese rvative free 06/16/2020 03:29:00 PM EDT completed eCW1 ([facility]) influenza, recombinant, quadrIvalent,injectable, prese rvative free 06/16/2020 03:29:00 PM EDT completed eCW1 ([facility]) influenza, recombinant, quadrIvalent,injectable, prese rvative free 06/16/2020 03:29:00 PM EDT completed eCW1 ([facility]) influenza, recombinant, quadrIvalent,injectable, prese rvative free 06/16/2020 03:29:00 PM EDT completed eCW1 ([facility]) influenza, recombinant, quadrIvalent,injectable, prese rvative free 06/16/2020 03:29:00 PM EDT completed eCW1 ([facility]) influenza, recombinant, quadrIvalent,injectable, prese rvative free 06/16/2020 03:29:00 PM EDT completed eCW1 ([facility]) influenza, recombinant, quadrIvalent,injectable, prese rvative free 06/16/2020 03:29:00 PM EDT completed eCW1 ([facility]) influenza, recombinant, quadrIvalent,injectable, prese rvative free 06/16/2020 03:29:00 PM EDT completed eCW1 ([facility]) influenza, recombinant, quadrIvalent,injectable, prese rvative free 06/16/2020 03:29:00 PM EDT completed eCW1 ([facility]) Medications Medication Brand Name Start Date Product Form Dose Route Admi nistrative Instructions Pharmacy Instructions Status Indications Reaction Description Data Source(s) Fluocinonide 0.5 MG/ML Topical Solution Fluocinonide 0.05 % Fluocinonide 0.05 % 06/03/2021 12:00:00 AM EDT 1.0 {application} act felecia Fluocinonide 0.05 % eCW1 ([facility]) Fluocinonide 0.5 MG/ML Topical Solution Fluocinonide 0.05 % Fluocinonide 0.05 % 06/03/2021 12:00:00 AM EDT 1.0 {application} act felecia Fluocinonide 0.05 % eCW1 ([facility]) Fluocinonide 0.5 MG/ML Topical Solution Fluocinonide 0.05 % Fluocinonide 0.05 % 06/03/2021 12:00:00 AM EDT 1.0 {application} act felecia Fluocinonide 0.05 % eCW1 ([facility]) Fluocinonide 0.5 MG/ML Topical Solution Fluocinonide 0.05 % Fluocinonide 0.05 % 06/03/2021 12:00:00 AM EDT 1.0 {application} act felecia Fluocinonide 0.05 % eCW1 ([facility]) Triamcinolone Acetonide 0.001 MG/MG Topi jimmy Ointment Triamcinolone Acetonide 0.1 % Triamcinolone Acetonide 0.1 % 06/03/2021 12:00:00 AM EDT 1.0 {application} active Triamcinolone Aceton damon 0.1 % eCW1 ([facility]) Triamcinolone Acetonide 0.001 MG/MG Topi jimmy Ointment Triamcinolone Acetonide 0.1 % Triamcinolone Acetonide 0.1 % 06/03/2021 12:00:00 AM EDT 1.0 {application} active Triamcinolone Aceton damon 0.1 % eCW1 ([facility]) Triamcinolone Acetonide 0.001 MG/MG Topi jimmy Ointment Triamcinolone Acetonide 0.1 % Triamcinolone Acetonide 0.1 % 06/03/2021 12:00:00 AM EDT 1.0 {application} active Triamcinolone Aceton damon 0.1 % eCW1 ([facility]) Triamcinolone Acetonide 0.001 MG/MG Topi jimmy Ointment Triamcinolone Acetonide 0.1 % Triamcinolone Acetonide 0.1 % 06/03/2021 12:00:00 AM EDT 1.0 {application} active Triamcinolone Aceton damon 0.1 % eCW1 ([facility]) Fluocinonide 0.5 MG/ML Topical Solution Fluocinonide 0.05 % Fluocinonide 0.05 % 06/03/2021 12:00:00 AM EDT 1.0 {application} act felecia Fluocinonide 0.05 % eCW1 ([facility]) Fluocinonide 0.5 MG/ML Topical Solution Fluocinonide 0.05 % Fluocinonide 0.05 % 06/03/2021 12:00:00 AM EDT 1.0 {application} act felecia Fluocinonide 0.05 % eCW1 ([facility]) Triamcinolone Acetonide 0.001 MG/MG Topi jimmy Ointment Triamcinolone Acetonide 0.1 % Triamcinolone Acetonide 0.1 % 06/03/2021 12:00:00 AM EDT 1.0 {application} active Triamcinolone Aceton damon 0.1 % eCW1 ([facility]) Triamcinolone Acetonide 0.001 MG/MG Topi jimmy Ointment Triamcinolone Acetonide 0.1 % Triamcinolone Acetonide 0.1 % 06/03/2021 12:00:00 AM EDT 1.0 {application} active Triamcinolone Aceton damon 0.1 % eCW1 ([facility]) Amlodipine 5 MG Oral Tablet Amlodipine Besylate 5 MG Amlodip ine Besylate 5 MG 05/17/2021 12:00:00 AM EDT 1.0 {tablet} active Amlodipine Besylate 5 MG eCW1 ([facility]) Amlodipine 5 MG Oral Tablet Amlodipine Besylate 5 MG Amlodip ine Besylate 5 MG 05/17/2021 12:00:00 AM EDT 1.0 {tablet} active Amlodipine Besylate 5 MG eCW1 ([facility]) Amlodipine 5 MG Oral Tablet Amlodipine Besylate 5 MG Amlodip ine Besylate 5 MG 05/17/2021 12:00:00 AM EDT 1.0 {tablet} active Amlodipine Besylate 5 MG eCW1 ([facility]) 24 HR quetiapine 200 MG Extended Release Oral Tablet quetiap ine 05/13/2021 12:00:00 AM EDT 200 mg by mouth completed <td ID="MedicationRxNorm_2">214028</td><td ID="MedicationMedication_2">quetiapine</td><td ID="MedicationRoute_2">by mouth</td><td ID="MedicationRouteConcept_2">G10839</td><td ID="MedicationStartDate_2">05/13/2021</td><td ID="MedicationStopDate_2">08/11/2021</td><td ID="MedicationDosageFrequency_2">at bedtime</td><td ID="MedicationDuration_2">30</td><td ID="MedicationFormulaStrength_2">200 mg</td><td ID="MedicationDosageForm_2">tablet extended release 24 hr</td><td ID="MedicationDosageFormCode_2"></td><td ID="MedicationDosageDescription_2"></td><td ID="MedicationMedicationId_2">[id number]</td><td ID="MedicationAccount_2">[id number]</td><td ID="MedicationNpid_2">[id number]</td><td ID="MedicationAuthorFirstName_2">Kemi</td><td ID="MedicationAuthorLastName_2">MacQueen</td><td ID="MedicationTaxonomyCode_2">[id number]</td><td ID="MedicationTaxonomyDesc_2"> Psychiatric/Mental Health</td><td ID="MedicationPhoneNumber_2">[phone]</td> [facility] ([facility]) quetiapine 50 MG Oral Tablet quetiapine 05/13/2021 12:00:00 AM EDT 50 mg by mouth completed <td ID="Medica tionRxNorm_5">000467</td><td ID="MedicationMedication_5">quetiapine</td><td ID="MedicationRoute_5">by mouth</td><td ID="MedicationRouteConcept_5">C56855</td><td ID="MedicationStartDate_5">05/13/2021</td><td ID="MedicationStopDate_5">08/11/2021</td><td ID="MedicationDosageFrequency_5">twice a day</td><td ID="MedicationDuration_5">30</td><td ID="MedicationFormulaStrength_5">50 mg</td><td ID="MedicationDosageForm_5">tablet</td><td ID="MedicationDosageFormCode_5"></td><td ID="MedicationDosageDescription_5"></td><td ID="MedicationMedicationId_5">[id number]</td><td ID="MedicationAccount_5">[id number]</td><td ID="MedicationNpid_5">[id number]</td><td ID="MedicationAuthorFirstName_5">Kemi</td><td ID="MedicationAuthorLastName_5">MacQueen</td><td ID="MedicationTaxonomyCode_5">[id number]</td><td ID="MedicationTaxonomyDesc_5">Psychiatric/Mental Health</td><td ID="MedicationPhoneNumber_5">[phone]</td> [facility] ([facility]) 24 HR quetiapine 200 MG Extended Release Oral Tablet quetiap ine 05/13/2021 12:00:00 AM EDT 200 mg by mouth completed <td ID="MedicationRxNorm_4">344719</td><td ID="MedicationMedication_4">quetiapine</td><td ID="MedicationRoute_4">by mouth</td><td ID="MedicationRouteConcept_4">I37821</td><td ID="MedicationStartDate_4">05/13/2021</td><td ID="MedicationStopDate_4">08/11/2021</td><td ID="MedicationDosageFrequency_4">at bedtime</td><td ID="MedicationDuration_4">30</td><td ID="MedicationFormulaStrength_4">200 mg</td><td ID="MedicationDosageForm_4">tablet extended release 24 hr</td><td ID="MedicationDosageFormCode_4"></td><td ID="MedicationDosageDescription_4"></td><td ID="MedicationMedicationId_4">[id number]</td><td ID="MedicationAccount_4">[id number]</td><td ID="MedicationNpid_4">[id number]</td><td ID="MedicationAuthorFirstName_4">Kemi</td><td ID="MedicationAuthorLastName_4">MacQueen</td><td ID="MedicationTaxonomyCode_4">[id number]</td><td ID="MedicationTaxonomyDesc_4"> Psychiatric/Mental Health</td><td ID="MedicationPhoneNumber_4">[phone]</td> [facility] ([facility]) quetiapine 50 MG Oral Tablet quetiapine 05/13/2021 12:00:00 AM EDT 50 mg by mouth completed <td ID="Medica tionRxNorm_3">992250</td><td ID="MedicationMedication_3">quetiapine</td><td ID="MedicationRoute_3">by mouth</td><td ID="MedicationRouteConcept_3">N47812</td><td ID="MedicationStartDate_3">05/13/2021</td><td ID="MedicationStopDate_3">08/11/2021</td><td ID="MedicationDosageFrequency_3">twice a day</td><td ID="MedicationDuration_3">30</td><td ID="MedicationFormulaStrength_3">50 mg</td><td ID="MedicationDosageForm_3">tablet</td><td ID="MedicationDosageFormCode_3"></td><td ID="MedicationDosageDescription_3"></td><td ID="MedicationMedicationId_3">[id number]</td><td ID="MedicationAccount_3">[id number]</td><td ID="MedicationNpid_3">[id number]</td><td ID="MedicationAuthorFirstName_3">Kemi</td><td ID="MedicationAuthorLastName_3">MacQueen</td><td ID="MedicationTaxonomyCode_3">[id number]</td><td ID="MedicationTaxonomyDesc_3">Psychiatric/Mental Health</td><td ID="MedicationPhoneNumber_3">[phone]</td> [facility] ([facility]) [place] Carbonate 300 MG Oral Tablet lithium carbonate 12:00:00 AM EDT 300 mg by mouth completed <td ID="MedicationRxNorm_4">146677</td><td ID="MedicationMedication_4">lithium carbonate</td><td ID="MedicationRoute_4">by mouth</td><td ID="MedicationRouteConcept_4">U89159</td><td ID="MedicationStartDate_4">05/13/2021</td><td ID="MedicationStopDate_4">07/12/2021</td><td ID="MedicationDosageFrequency_4">once a day</td><td ID="MedicationDuration_4">30</td><td ID="MedicationFormulaStrength_4">300 mg</td><td ID="MedicationDosageForm_4">tablet</td><td ID="MedicationDosageFormCode_4"></td><td ID="MedicationDosageDescription_4"></td><td ID="MedicationMedicationId_4">[id number]</td><td ID="MedicationAccount_4">[id number]</td><td ID="MedicationNpid_4">[id number]</td><td ID="MedicationAuthorFirstName_4">Kemi</td><td ID="MedicationAuthorLastName_4">MacQueen</td><td ID="MedicationTaxonomyCode_4">[id number]</td><td ID="MedicationTaxonomyDesc_4">Psychiatric/Mental Health</td><td ID="MedicationPhoneNumber_4">[phone]</td> [facility] ([facility]) [place] Carbonate 300 MG Oral Tablet lithium carbonate 12:00:00 AM EDT 300 mg by mouth completed <td ID="MedicationRxNorm_5">328348</td><td ID="MedicationMedication_5">lithium carbonate</td><td ID="MedicationRoute_5">by mouth</td><td ID="MedicationRouteConcept_5">[id number]</td><td ID="MedicationStartDate_5">05/13/2021</td><td ID="MedicationStopDate_5">09/14/2021</td><td ID="MedicationDosageFrequency_5">once a day</td><td ID="MedicationDuration_5">30</td><td ID="MedicationFormulaStrength_5">300 mg</td><td ID="MedicationDosageForm_5">tablet</td><td ID="MedicationDosageFormCode_5"></td><td ID="MedicationDosageDescription_5"></td><td ID="MedicationMedicationId_5">[id number]</td><td ID="MedicationAccount_5">[id number]</td><td ID="MedicationNpid_5">[id number]</td><td ID="MedicationAuthorFirstName_5">Kemi</td><td ID="MedicationAuthorLastName_5">MacQueen</td><td ID="MedicationTaxonomyCode_5">[id number]</td><td ID="MedicationTaxonomyDesc_5">Psychiatric/Mental Health</td><td ID="MedicationPhoneNumber_5">[phone]</td> [facility] ([facility] [place] Carbonate 300 MG Oral Tablet lithium carbonate 12:00:00 AM EDT 300 mg by mouth completed <td ID="MedicationRxNorm_2">526007</td><td ID="MedicationMedication_2">lithium carbonate</td><td ID="MedicationRoute_2">by mouth</td><td ID="MedicationRouteConcept_2">[id number]</td><td ID="MedicationStartDate_2">05/13/2021</td><td ID="MedicationStopDate_2">07/12/2021</td><td ID="MedicationDosageFrequency_2">once a day</td><td ID="MedicationDuration_2">30</td><td ID="MedicationFormulaStrength_2">300 mg</td><td ID="MedicationDosageForm_2">tablet</td><td ID="MedicationDosageFormCode_2"></td><td ID="MedicationDosageDescription_2"></td><td ID="MedicationMedicationId_2">[id number]</td><td ID="MedicationAccount_2">[id number]</td><td ID="MedicationNpid_2">[id number]</td><td ID="MedicationAuthorFirstName_2">Kemi</td><td ID="MedicationAuthorLastName_2">MacQueen</td><td ID="MedicationTaxonomyCode_2">[id number]</td><td ID="MedicationTaxonomyDesc_2">Psychiatric/Mental Health</td><td ID="MedicationPhoneNumber_2">[phone]</td> [facility] ([facility]) Amlodipine 5 MG Oral Tablet amLODIPine Besylate 5 MG amLODIP ine Besylate 5 MG 05/10/2021 12:00:00 AM EDT 1.0 {tablet} active amLODIPine Besylate 5 MG eCW1 ([facility]) [place] Carbonate 300 MG Oral Capsule [place] Carbon[place] 300 MG 05/10/2021 12:00:00 AM EDT 1.0 {capsule_at_bedtime} active [place] 300 MG eCW1 ([facility]) [place] Carbonate 300 MG Oral Capsule [place] Carbon[place] 300 MG 05/10/2021 12:00:00 AM EDT 1.0 {capsule_at_bedtime} active [place] 300 MG eCW1 ([facility]) Amlodipine 5 MG Oral Tablet amLODIPine Besylate 5 MG amLODIP ine Besylate 5 MG 05/10/2021 12:00:00 AM EDT 1.0 {tablet} active amLODIPine Besylate 5 MG eCW1 ([facility]) Amlodipine 5 MG Oral Tablet amLODIPine Besylate 5 MG amLODIP ine Besylate 5 MG 05/10/2021 12:00:00 AM EDT 1.0 {tablet} active amLODIPine Besylate 5 MG eCW1 ([facility]) Sertraline 100 MG Oral Tablet [Zoloft] Zoloft 100 MG Zoloft 100 MG 05/10/2021 12:00:00 AM EDT 1.0 {tablet} active Zo loft 100 MG eCW1 ([facility]) [place] Carbon[place] 300 MG Oral Capsule [place] 300 MG 05/10/2021 12:00:00 AM EDT 1.0 {capsule_at_bedtime} active [place] 300 MG eCW1 ([facility]) [place] Carbonate 300 MG Oral Capsule [place] 300 MG 05/10/2021 12:00:00 AM EDT 1.0 {capsule_at_bedtime} active [place] 300 MG eCW1 ([facility]) [place] Carbonate 300 MG Oral Capsule [place] 300 MG 05/10/2021 12:00:00 AM EDT 1.0 {capsule_at_bedtime} active [place] 300 MG eCW1 ([facility]) Amlodipine 5 MG Oral Tablet amLODIPine Besylate 5 MG amLODIP ine Besylate 5 MG 05/10/2021 12:00:00 AM EDT 1.0 {tablet} active amLODIPine Besylate 5 MG eCW1 ([facility]) [place] Carbonate 300 MG Oral Capsule [place] 300 MG 05/10/2021 12:00:00 AM EDT 1.0 {capsule_at_bedtime} active [place] 300 MG eCW1 ([facility]) Sertraline 100 MG Oral Tablet [Zoloft] Zoloft 100 MG Zoloft 100 MG 05/10/2021 12:00:00 AM EDT 1.0 {tablet} active Zo loft 100 MG eCW1 ([facility]) Amlodipine 5 MG Oral Tablet amLODIPine Besylate 5 MG amLODIP ine Besylate 5 MG 05/10/2021 12:00:00 AM EDT 1.0 {tablet} active amLODIPine Besylate 5 MG eCW1 ([facility]) [place] Carbonate 300 MG Oral Capsule [place] 300 MG 05/10/2021 12:00:00 AM EDT 1.0 {capsule_at_bedtime} active [place] 300 MG eCW1 ([facility]) Amlodipine 5 MG Oral Tablet amLODIPine Besylate 5 MG amLODIP ine Besylate 5 MG 05/10/2021 12:00:00 AM EDT 1.0 {tablet} active amLODIPine Besylate 5 MG eCW1 ([facility]) [place] Carbonate 300 MG Oral Capsule [place] 300 MG 05/10/2021 12:00:00 AM EDT 1.0 {capsule_at_bedtime} active [place] 300 MG eCW1 ([facility]) [place] Carbonate 300 MG Oral Capsule [place] 300 MG 05/10/2021 12:00:00 AM EDT 1.0 {capsule_at_bedtime} active [place] 300 MG eCW1 ([facility]) Amlodipine 5 MG Oral Tablet amLODIPine Besylate 5 MG amLODIP ine Besylate 5 MG 05/10/2021 12:00:00 AM EDT 1.0 {tablet} active amLODIPine Besylate 5 MG eCW1 ([facility]) Amlodipine 5 MG Oral Tablet amLODIPine Besylate 5 MG amLODIP ine Besylate 5 MG 05/10/2021 12:00:00 AM EDT 1.0 {tablet} active amLODIPine Besylate 5 MG eCW1 ([facility]) Amlodipine 5 MG Oral Tablet amLODIPine Besylate 5 MG amLODIP ine Besylate 5 MG 05/10/2021 12:00:00 AM EDT 1.0 {tablet} active amLODIPine Besylate 5 MG eCW1 ([facility]) Amlodipine 5 MG Oral Tablet amLODIPine Besylate 5 MG amLODIP ine Besylate 5 MG 05/10/2021 12:00:00 AM EDT 1.0 {tablet} active amLODIPine Besylate 5 MG eCW1 ([facility]) [place] Carbonate 300 MG Oral Capsule [place] 300 MG 05/10/2021 12:00:00 AM EDT 1.0 {capsule_at_bedtime} active [place] 300 MG eCW1 ([facility]) Sertraline 100 MG Oral Tablet [Zoloft] Zoloft 100 MG Zoloft 100 MG 05/10/2021 12:00:00 AM EDT 1.0 {tablet} active Zo loft 100 MG eCW1 ([facility]) Lidocaine Hydrochloride 20 MG/ML Mucous Membrane Topical Solution Lidocaine Viscous HCl 2 % Lidocaine Viscous HCl 2 % 04/26/2021 12:00:00 AM EDT 15.0 {ml_as_needed} active Lidocaine Viscous HCl 2 % eCW1 ([facility]) Lidocaine Hydrochloride 20 MG/ML Mucous Membrane Topical Solution Lidocaine Viscous HCl 2 % Lidocaine Viscous HCl 2 % 04/26/2021 12:00:00 AM EDT 15.0 {ml} active Lidocaine Viscous HCl 2 % eCW1 ([facility]) Lidocaine Hydrochloride 20 MG/ML Mucous Membrane Topical Solution Lidocaine Viscous HCl 2 % Lidocaine Viscous HCl 2 % 04/26/2021 12:00:00 AM EDT 15.0 {ml_as_needed} active Lidocaine Viscous HCl 2 % eCW1 ([facility]) Lidocaine Hydrochloride 20 MG/ML Mucous Membrane Topical Solution Lidocaine Viscous HCl 2 % Lidocaine Viscous HCl 2 % 04/26/2021 12:00:00 AM EDT 15.0 {ml_as_needed} active Lidocaine Viscous HCl 2 % eCW1 ([facility]) Lidocaine Hydrochloride 20 MG/ML Mucous Membrane Topical Solution Lidocaine Viscous HCl 2 % Lidocaine Viscous HCl 2 % 04/26/2021 12:00:00 AM EDT 15.0 {ml_as_needed} active Lidocaine Viscous HCl 2 % eCW1 ([facility]) Lidocaine Hydrochloride 20 MG/ML Mucous Membrane Topical Solution Lidocaine Viscous HCl 2 % Lidocaine Viscous HCl 2 % 04/26/2021 12:00:00 AM EDT 15.0 {ml_as_needed} active Lidocaine Viscous HCl 2 % eCW1 ([facility]) Sertraline 100 MG Oral Tablet [Zoloft] Zoloft 03/29/2021 12:0 0:00 AM EDT 100 mg by mouth completed <td ID="Me dicationRxNorm_4">[id number]</td><td ID="MedicationMedication_4">Zoloft</td><td ID="MedicationRoute_4">by mouth</td><td ID="MedicationRouteConcept_4">[id number]</td><td ID="MedicationStartDate_4">03/29/2021</td><td ID="MedicationStopDate_4">09/14/2021</td><td ID="MedicationDosageFrequency_4">every morning</td><td ID="MedicationDuration_4">30</td><td ID="MedicationFormulaStrength_4">100 mg</td><td ID="MedicationDosageForm_4">tablet</td><td ID="MedicationDosageFormCode_4"></td><td ID="MedicationDosageDescription_4"> </td><td ID="MedicationMedicationId_4">[id number]</td><td ID="MedicationAccount_4">[id number]</td><td ID="MedicationNpid_4">[id number]</td><td ID="MedicationAuthorFirstName_4">Kemi</td><td ID="MedicationAuthorLastName_4">MacQueen</td><td ID="MedicationTaxonomyCode_4">[id number]</td><td ID="MedicationTaxonomyDesc_4">Psychiatric/Mental Health</td><td ID="MedicationPhoneNumber_4">[phone]</td> [facility] ([facility]) Sertraline 100 MG Oral Tablet [Zoloft] Zoloft 03/29/2021 12:0 0:00 AM EDT 100 mg by mouth completed <td ID="Me dicationRxNorm_3">[id number]</td><td ID="MedicationMedication_3">Zoloft</td><td ID="MedicationRoute_3">by mouth</td><td ID="MedicationRouteConcept_3">[id number]</td><td ID="MedicationStartDate_3">03/29/2021</td><td ID="MedicationStopDate_3">07/13/2021</td><td ID="MedicationDosageFrequency_3">every morning</td><td ID="MedicationDuration_3">30</td><td ID="MedicationFormulaStrength_3">100 mg</td><td ID="MedicationDosageForm_3">tablet</td><td ID="MedicationDosageFormCode_3"></td><td ID="MedicationDosageDescription_3"> </td><td ID="MedicationMedicationId_3">[id number]</td><td ID="MedicationAccount_3">[id number]</td><td ID="MedicationNpid_3">[id number]</td><td ID="MedicationAuthorFirstName_3">Kemi</td><td ID="MedicationAuthorLastName_3">MacQueen</td><td ID="MedicationTaxonomyCode_3">[id number]</td><td ID="MedicationTaxonomyDesc_3">Psychiatric/Mental Health</td><td ID="MedicationPhoneNumber_3">[phone]</td> [facility] ([facility]) Hydroxychloroquine Sulfate 200 MG Oral T ablet Hydroxychloroquine Sulfate 200 MG Oral Tablet (PLAQUENIL) Hydroxychloroquine Sulfate 200 MG Oral T ablet (PLAQUENIL) 02/18/2021 12:00:00 AM EDT a ctive Rheumatoid factor positivePositive HAYLIE (antinuclear antibody)PolyarthralgiaESR raisedMCTD (mixed connective tissue disease) TAKE ONE TABLET BY MOUTH @8 AM and TAKE ONE TABLET BY MOUTH @8PM [facility] Rheumatoid factor positive Positive HAYLIE (antinuclear antibody) Polyarthralgia ESR raised MCTD (mixed connective tissue disease) 2 ML Sodium Hyaluronate 10 MG/ML Prefilled Syringe [Euflexxa ] Euflexxa 12/11/2020 12:00:00 AM EDT active [facility]ENT ([facility] ) retapamulin 0.01 MG/MG Topical Ointment [Altabax] Altabax 1 % Altabax 1 % 10/08/2020 12:00:00 AM EST 1.0 {application} active Altabax 1 % eCW1 ([facility]) retapamulin 0.01 MG/MG Topical Ointment [Altabax] Altabax 1 % Altabax 1 % 10/08/2020 12:00:00 AM EST 1.0 {application} active Altabax 1 % eCW1 ([facility]) retapamulin 0.01 MG/MG Topical Ointment [Altabax] Altabax 1 % Altabax 1 % 10/08/2020 12:00:00 AM EST 1.0 {application} active Altabax 1 % eCW1 ([facility]) retapamulin 0.01 MG/MG Topical Ointment [Altabax] Altabax 1 % Altabax 1 % 10/08/2020 12:00:00 AM EST 1.0 {application} active Altabax 1 % eCW1 ([facility]) Fluconazole 100 MG Oral Tablet [Diflucan] Diflucan 100 MG Di flucan 100 MG 10/08/2020 12:00:00 AM EST 1.0 {tablet} active Diflucan 100 MG eCW1 ([facility]) Fluconazole 100 MG Oral Tablet [Diflucan] Diflucan 100 MG Di flucan 100 MG 10/08/2020 12:00:00 AM EST 1.0 {tablet} active Diflucan 100 MG eCW1 ([facility]) retapamulin 0.01 MG/MG Topical Ointment [Altabax] Altabax 1 % Altabax 1 % 10/08/2020 12:00:00 AM EST 1.0 {application} active Altabax 1 % eCW1 ([facility]) Fluconazole 100 MG Oral Tablet [Diflucan] Diflucan 100 MG Di flucan 100 MG 10/08/2020 12:00:00 AM EST 1.0 {tablet} active Diflucan 100 MG eCW1 ([facility]) Fluconazole 100 MG Oral Tablet [Diflucan] Diflucan 100 MG Di flucan 100 MG 10/08/2020 12:00:00 AM EST 1.0 {tablet} active Diflucan 100 MG eCW1 ([facility]) retapamulin 0.01 MG/MG Topical Ointment [Altabax] Altabax 1 % Altabax 1 % 10/08/2020 12:00:00 AM EST 1.0 {application} active Altabax 1 % eCW1 ([facility]) retapamulin 0.01 MG/MG Topical Ointment [Altabax] Altabax 1 % Altabax 1 % 10/08/2020 12:00:00 AM EST 1.0 {application} active Altabax 1 % eCW1 ([facility]) Fluconazole 100 MG Oral Tablet [Diflucan] Diflucan 100 MG Di flucan 100 MG 10/08/2020 12:00:00 AM EST 1.0 {tablet} active Diflucan 100 MG eCW1 ([facility]) Fluconazole 100 MG Oral Tablet [Diflucan] Diflucan 100 MG Di flucan 100 MG 10/08/2020 12:00:00 AM EST 1.0 {tablet} active Diflucan 100 MG eCW1 ([facility]) retapamulin 0.01 MG/MG Topical Ointment [Altabax] Altabax 1 % Altabax 1 % 10/08/2020 12:00:00 AM EST 1.0 {application} active Altabax 1 % eCW1 ([facility]) Fluconazole 100 MG Oral Tablet [Diflucan] Diflucan 100 MG Di flucan 100 MG 10/08/2020 12:00:00 AM EST 1.0 {tablet} active Diflucan 100 MG eCW1 ([facility]) retapamulin 0.01 MG/MG Topical Ointment [Altabax] Altabax 1 % Altabax 1 % 10/08/2020 12:00:00 AM EST 1.0 {application} active Altabax 1 % eCW1 ([facility]) Fluconazole 100 MG Oral Tablet [Diflucan] Diflucan 100 MG Di flucan 100 MG 10/08/2020 12:00:00 AM EST 1.0 {tablet} active Diflucan 100 MG eCW1 ([facility]) Fluconazole 100 MG Oral Tablet [Diflucan] Diflucan 100 MG Di flucan 100 MG 10/08/2020 12:00:00 AM EST 1.0 {tablet} active Diflucan 100 MG eCW1 ([facility]) retapamulin 0.01 MG/MG Topical Ointment [Altabax] Altabax 1 % Altabax 1 % 10/08/2020 12:00:00 AM EST 1.0 {application} active Altabax 1 % eCW1 ([facility]) Fluconazole 100 MG Oral Tablet [Diflucan] Diflucan 100 MG Di flucan 100 MG 10/08/2020 12:00:00 AM EST 1.0 {tablet} active Diflucan 100 MG eCW1 ([facility]) Fluconazole 100 MG Oral Tablet [Diflucan] Diflucan 100 MG Di flucan 100 MG 10/08/2020 12:00:00 AM EST 1.0 {tablet} active Diflucan 100 MG eCW1 ([facility]) retapamulin 0.01 MG/MG Topical Ointment [Altabax] Altabax 1 % Altabax 1 % 10/08/2020 12:00:00 AM EST 1.0 {application} active Altabax 1 % eCW1 ([facility]) Fluconazole 100 MG Oral Tablet [Diflucan] Diflucan 100 MG Di flucan 100 MG 10/08/2020 12:00:00 AM EST 1.0 {tablet} active Diflucan 100 MG eCW1 ([facility]) retapamulin 0.01 MG/MG Topical Ointment [Altabax] Altabax 1 % Altabax 1 % 10/08/2020 12:00:00 AM EST 1.0 {application} active Altabax 1 % eCW1 ([facility]) retapamulin 0.01 MG/MG Topical Ointment [Altabax] Altabax 1 % Altabax 1 % 10/08/2020 12:00:00 AM EST 1.0 {application} active Altabax 1 % eCW1 ([facility]) retapamulin 0.01 MG/MG Topical Ointment [Altabax] Altabax 1 % Altabax 1 % 10/08/2020 12:00:00 AM EST 1.0 {application} active Altabax 1 % eCW1 ([facility]) Fluconazole 100 MG Oral Tablet [Diflucan] Diflucan 100 MG Di flucan 100 MG 10/08/2020 12:00:00 AM EST 1.0 {tablet} active Diflucan 100 MG eCW1 ([facility]) retapamulin 0.01 MG/MG Topical Ointment [Altabax] Altabax 1 % Altabax 1 % 10/08/2020 12:00:00 AM EST 1.0 {application} active Altabax 1 % eCW1 ([facility]) Fluconazole 100 MG Oral Tablet [Diflucan] Diflucan 100 MG Di flucan 100 MG 10/08/2020 12:00:00 AM EST 1.0 {tablet} active Diflucan 100 MG eCW1 ([facility]) Fluconazole 100 MG Oral Tablet [Diflucan] Diflucan 100 MG Di flucan 100 MG 10/08/2020 12:00:00 AM EST 1.0 {tablet} active Diflucan 100 MG eCW1 ([facility]) Fluconazole 100 MG Oral Tablet [Diflucan] Diflucan 100 MG Di flucan 100 MG 10/08/2020 12:00:00 AM EST 1.0 {tablet} active Diflucan 100 MG eCW1 ([facility]) retapamulin 0.01 MG/MG Topical Ointment [Altabax] Altabax 1 % Altabax 1 % 10/08/2020 12:00:00 AM EST 1.0 {application} active Altabax 1 % eCW1 ([facility]) Fluconazole 100 MG Oral Tablet [Diflucan] Diflucan 100 MG Di flucan 100 MG 10/08/2020 12:00:00 AM EST 1.0 {tablet} active Diflucan 100 MG eCW1 ([facility]) Fluconazole 100 MG Oral Tablet [Diflucan] Diflucan 100 MG Di flucan 100 MG 10/08/2020 12:00:00 AM EST 1.0 {tablet} active Diflucan 100 MG eCW1 ([facility]) retapamulin 0.01 MG/MG Topical Ointment [Altabax] Altabax 1 % Altabax 1 % 10/08/2020 12:00:00 AM EST 1.0 {application} active Altabax 1 % eCW1 ([facility]) retapamulin 0.01 MG/MG Topical Ointment [Altabax] Altabax 1 % Altabax 1 % 10/08/2020 12:00:00 AM EST 1.0 {application} active Altabax 1 % eCW1 ([facility]) Rolling Walker 1 UNK 07/13/2020 12:00:00 AM EST active Rolling Walker 1 eCW1 ([facility]) Rolling Walker 1 UNK 07/13/2020 12:00:00 AM EST active Rolling Walker 1 eCW1 ([facility]) Rolling Walker 1 UNK 07/13/2020 12:00:00 AM EST active Rolling Walker 1 eCW1 ([facility]) Rolling Walker 1 UNK 07/13/2020 12:00:00 AM EST active Rolling Walker 1 eCW1 ([facility]) Rolling Walker 1 UNK 07/13/2020 12:00:00 AM EST active Rolling Walker 1 eCW1 ([facility]) Rolling Walker 1 UNK 07/13/2020 12:00:00 AM EST active Rolling Walker 1 eCW1 ([facility]) Rolling Walker 1 UNK 07/13/2020 12:00:00 AM EST active Rolling Walker 1 eCW1 ([facility]) Rolling Walker 1 UNK 07/13/2020 12:00:00 AM EST active Rolling Walker 1 eCW1 ([facility]) Rolling Walker 1 UNK 07/13/2020 12:00:00 AM EST active Rolling Walker 1 eCW1 ([facility]) Rolling Walker 1 UNK 07/13/2020 12:00:00 AM EST active Rolling Walker 1 eCW1 ([facility]) Rolling Walker 1 UNK 07/13/2020 12:00:00 AM EST active Rolling Walker 1 eCW1 ([facility]) Rolling Walker 1 UNK 07/13/2020 12:00:00 AM EST active Rolling Walker 1 eCW1 ([facility]) Rolling Walker 1 UNK 07/13/2020 12:00:00 AM EST active Rolling Walker 1 eCW1 ([facility]) Rolling Walker 1 UNK 07/13/2020 12:00:00 AM EST active Rolling Walker 1 eCW1 ([facility]) Rolling Walker 1 UNK 07/13/2020 12:00:00 AM EST active Rolling Walker 1 eCW1 ([facility]) Rolling Walker 1 UNK 07/13/2020 12:00:00 AM EST active Rolling Walker 1 eCW1 ([facility]) Rolling Walker 1 UNK 07/13/2020 12:00:00 AM EST active Rolling Walker 1 eCW1 ([facility]) Rolling Walker 1 UNK 07/13/2020 12:00:00 AM EST active Rolling Walker 1 eCW1 ([facility]) Rolling Walker 1 UNK 07/13/2020 12:00:00 AM EST active Rolling Walker 1 eCW1 ([facility]) Rolling Walker 1 UNK 07/13/2020 12:00:00 AM EST active Rolling Walker 1 eCW1 ([facility]) Rolling Walker 1 UNK 07/13/2020 12:00:00 AM EST active Rolling Walker 1 eCW1 ([facility]) Rolling Walker 1 UNK 07/13/2020 12:00:00 AM EST active Rolling Walker 1 eCW1 ([facility]) Rolling Walker 1 UNK 07/13/2020 12:00:00 AM EST active Rolling Walker 1 eCW1 ([facility]) Rolling Walker 1 UNK 07/13/2020 12:00:00 AM EST active Rolling Walker 1 eCW1 ([facility]) Rolling Walker 1 UNK 07/13/2020 12:00:00 AM EST active Rolling Walker 1 eCW1 ([facility]) Rolling Walker 1 UNK 07/13/2020 12:00:00 AM EST active Rolling Walker 1 eCW1 ([facility]) Rolling Walker 1 UNK 07/13/2020 12:00:00 AM EST active Rolling Walker 1 eCW1 ([facility]) Rolling Walker 1 UNK 07/13/2020 12:00:00 AM EST active Rolling Walker 1 eCW1 ([facility]) Rolling Walker 1 UNK 07/13/2020 12:00:00 AM EST active Rolling Walker 1 eCW1 ([facility]) Rolling Walker 1 UNK 07/13/2020 12:00:00 AM EST active Rolling Walker 1 eCW1 ([facility]) Rolling Walker 1 UNK 07/13/2020 12:00:00 AM EST active Rolling Walker 1 eCW1 ([facility]) Rolling Walker 1 UNK 07/13/2020 12:00:00 AM EST active Rolling Walker 1 eCW1 ([facility]) Rolling Walker 1 UNK 07/13/2020 12:00:00 AM EST active Rolling Walker 1 eCW1 ([facility]) Rolling Walker 1 UNK 07/13/2020 12:00:00 AM EST active Rolling Walker 1 eCW1 ([facility]) Rolling Walker 1 UNK 07/13/2020 12:00:00 AM EST active Rolling Walker 1 eCW1 ([facility]) Rolling Walker 1 UNK 07/13/2020 12:00:00 AM EST active Rolling Walker 1 eCW1 ([facility]) Rolling Walker 1 UNK 07/13/2020 12:00:00 AM EST active Rolling Walker 1 eCW1 ([facility]) Rolling Walker 1 UNK 07/13/2020 12:00:00 AM EST active Rolling Walker 1 eCW1 ([facility]) Rolling Walker 1 UNK 07/13/2020 12:00:00 AM EST active Rolling Walker 1 eCW1 ([facility]) Triamcinolone Acetonide 0.001 MG/MG Oral Paste Triamci nolone Acetonide Dental Paste 07/10/2020 12:00:00 AM EST active [facility] ([facility]) Betamethasone 0.5 MG/ML / Clotrimazole 1 0 MG/ML Topical Cream Clotrimazole- Betamethasone 1-0.05 % Clotrimazole-Betamethasone 1-0.05 % 06/15/2020 12:00:0 0 AM EDT 1.0 {application} active Clotri mazole-Betamethasone 1-0.05 % eCW1 ([facility]) Betamethasone 0.5 MG/ML / Clotrimazole 1 0 MG/ML Topical Cream Clotrimazole- Betamethasone 1-0.05 % Clotrimazole-Betamethasone 1-0.05 % 06/15/2020 12:00:0 0 AM EDT 1.0 {application} active Clotri mazole-Betamethasone 1-0.05 % eCW1 ([facility]) Betamethasone 0.5 MG/ML / Clotrimazole 1 0 MG/ML Topical Cream Clotrimazole- Betamethasone 1-0.05 % Clotrimazole-Betamethasone 1-0.05 % 06/15/2020 12:00:0 0 AM EDT 1.0 {application} active Clotri mazole-Betamethasone 1-0.05 % eCW1 ([facility]) Betamethasone 0.5 MG/ML / Clotrimazole 1 0 MG/ML Topical Cream Clotrimazole- Betamethasone 1-0.05 % Clotrimazole-Betamethasone 1-0.05 % 06/15/2020 12:00:0 0 AM EDT 1.0 {application} active Clotri mazole-Betamethasone 1-0.05 % eCW1 ([facility]) Betamethasone 0.5 MG/ML / Clotrimazole 1 0 MG/ML Topical Cream Clotrimazole- Betamethasone 1-0.05 % Clotrimazole-Betamethasone 1-0.05 % 06/15/2020 12:00:0 0 AM EDT 1.0 {application} active Clotri mazole-Betamethasone 1-0.05 % eCW1 ([facility]) Betamethasone 0.5 MG/ML / Clotrimazole 1 0 MG/ML Topical Cream Clotrimazole- Betamethasone 1-0.05 % Clotrimazole-Betamethasone 1-0.05 % 06/15/2020 12:00:0 0 AM EDT 1.0 {application} active Clotri mazole-Betamethasone 1-0.05 % eCW1 ([facility]) Betamethasone 0.5 MG/ML / Clotrimazole 1 0 MG/ML Topical Cream Clotrimazole- Betamethasone 1-0.05 % Clotrimazole-Betamethasone 1-0.05 % 06/15/2020 12:00:0 0 AM EDT 1.0 {application} active Clotri mazole-Betamethasone 1-0.05 % eCW1 ([facility]) Betamethasone 0.5 MG/ML / Clotrimazole 1 0 MG/ML Topical Cream Clotrimazole- Betamethasone 1-0.05 % Clotrimazole-Betamethasone 1-0.05 % 06/15/2020 12:00:0 0 AM EDT 1.0 {application} active Clotri mazole-Betamethasone 1-0.05 % eCW1 ([facility]) Betamethasone 0.5 MG/ML / Clotrimazole 1 0 MG/ML Topical Cream Clotrimazole- Betamethasone 1-0.05 % Clotrimazole-Betamethasone 1-0.05 % 06/15/2020 12:00:0 0 AM EDT 1.0 {application} active Clotri mazole-Betamethasone 1-0.05 % eCW1 ([facility]) Betamethasone 0.5 MG/ML / Clotrimazole 1 0 MG/ML Topical Cream Clotrimazole- Betamethasone 1-0.05 % Clotrimazole-Betamethasone 1-0.05 % 06/15/2020 12:00:0 0 AM EDT 1.0 {application} active Clotri mazole-Betamethasone 1-0.05 % eCW1 ([facility]) Betamethasone 0.5 MG/ML / Clotrimazole 1 0 MG/ML Topical Cream Clotrimazole- Betamethasone 1-0.05 % Clotrimazole-Betamethasone 1-0.05 % 06/15/2020 12:00:0 0 AM EDT 1.0 {application} active Clotri mazole-Betamethasone 1-0.05 % eCW1 ([facility]) Hydroxychloroquine Sulfate 200 MG Oral T ablet Hydroxychloroquine Sulfate 200 MG Oral Tablet (PLAQUENIL) Hydroxychloroquine Sulfate 200 MG Oral T ablet (PLAQUENIL) 06/02/2020 12:00:00 AM EDT 200 mg Oral a ctive Rheumatoid factor positivePositive HAYLIE (antinuclear antibody)PolyarthralgiaESR raisedMCTD (mixed connective tissue disease) Take 1 tablet by mouth Two Times Daily [facility] Rheumatoid factor positive Positive HAYLIE (antinuclear antibody) Polyarthralgia ESR raised MCTD (mixed connective tissue disease) 2 ML Sodium Hyaluronate 10 MG/ML Prefilled Syringe [Euflexxa ] Euflexxa 04/21/2020 12:00:00 AM EDT completed [facility]ENT ([facility]) Hydroxychloroquine Sulfate 200 MG Oral T ablet Hydroxychloroquine Sulfate 200 MG Oral Tablet (PLAQUENIL) Hydroxychloroquine Sulfate 200 MG Oral T ablet (PLAQUENIL) 03/26/2020 12:00:00 AM EDT 200 mg Oral a borted Rheumatoid factor positivePositive HAYLIE (antinuclear antibody)PolyarthralgiaESR raisedMCTD (mixed connective tissue disease) Take 1 tablet by mouth Two Times Daily [facility] Rheumatoid factor positive Positive HAYLIE (antinuclear antibody) Polyarthralgia ESR raised MCTD (mixed connective tissue disease) Sertraline 100 MG Oral Tablet [Zoloft] Zoloft 02/26/2020 12:0 0:00 AM EDT 100 mg by mouth completed <td ID="Me dicationRxNorm_2">[id number]</td><td ID="MedicationMedication_2">Zoloft</td><td ID="MedicationRoute_2">by mouth</td><td ID="MedicationRouteConcept_2">[id number]</td><td ID="MedicationStartDate_2">02/26/2020</td><td ID="MedicationStopDate_2">03/23/2021</td><td ID="MedicationDosageFrequency_2">once a day</td><td ID="MedicationDuration_2">30</td><td ID="MedicationFormulaStrength_2">100 mg</td><td ID="MedicationDosageForm_2">tablet</td><td ID="MedicationDosageFormCode_2"></td><td ID="MedicationDosageDescription_2"></td><td ID="MedicationMedicationId_2">[id number]</td><td ID="MedicationAccount_2">[id number]</td><td ID="MedicationNpid_2">[id number]</td><td ID="MedicationAuthorFirstName_2">Kemi</td><td ID="MedicationAuthorLastName_2">MacQueen</td><td ID="MedicationTaxonomyCode_2">[id number]</td><td ID="MedicationTaxonomyDesc_2">Psychiatric/Mental Health</td><td ID="MedicationPhoneNumber_2">[phone]</td> [facility] Insurance Providers Payer name Policy type / Coverage type Policy ID Covered green party ID Covered green party's relationship to camacho Policy [place] Plan Information [id number] MEDICARE A [id number] Self [id number] MEDICARE A [id number] Self [id number] MEDICARE [id number] MEDICARE [id number] SP [id number] [id number] Self [id number] [place] Primary [id number] 2.0.1.938600.3.227.99.991.027833.0 Self [id number] [place] Primary [id number] .0.1.660866.3.227.99.991.648008.0 Self [id number] [place] Primary [id number] 2.840.1.302174.3.227.99.991.169170.0 Self [id number] [place] Medicare Primary [id number] 2.840.1.143841.3.227.99.991.149280.0 Self [id number] [place] Medicare Primary [id number] 2.840.1.362882.3.227.99.991.574283.0 Self [id number] [place] Medicare Primary [id number] 2.840.1.150165.3.227.99.991.754659.0 Self [id number] [place] Medicare Primary [id number] 2.840.1.474326.3.227.99.991.451083.0 Self [id number] [place] Medicare Primary [id number] 2.0.1.736932.3.227.99.991.655440.0 Self [id number] [place] Medicare Primary [id number] 2.840.1.492772.3.227.99.991.505173.0 Self [id number] [place] Medicare Primary [id number] 2.840.1.289300.3.227.99.991.731627.0 Self [id number] [place] Medicare Primary [id number] 2.0.1.172185.3.227.99.991.755324.0 Self [id number] Medicare [place] Medicare Primary [id number] 2.840.1.428932.3.227.99.991.766493.0 Self [id number] [place] Medicare Primary [id number] MRN.[id number] Self [id number] Medicaid [place] Medig[place] Part [place] [id number] [id number] Self [id number] Medicare [place] Medicare Primary [id number] 2.16.840.1.657525.3.227.99.991.806173.0 Self [id number] [place] Medicare Primary [id number] 2.16840.1.663327.3.227.99.991.986065.0 Self [id number] [place] Medicare Primary [id number] 2.16840.1.207888.3.227.99.991.758464.0 Self [id number] [place] Medicare Primary [id number] 2.0.1.202346.3.227.99.991.387617.0 Self [id number] [place] Part B [id number] Self Medicare [place] Medicare Primary [id number] Self Medicare [place] Medicare Primary [id number] 2.840.1.398176.3.227.99.991.645355.0 Self [id number] [place] Medicare Primary [id number] MRN.[id number] Self [id number] [place] Medicare Primary [id number] 2.840.1.763010.3.227.99.991.527532.0 Self [id number] Medicare [place] Medicare Primary [id number] MRN.[id number] Self [id number] Medicare [place] Medicare Primary [id number] 2.840.1.722860.3.227.99.991.729761.0 Self [id number] Medicare [place] Medicare Primary [id number] 2.16840.1.731878.3.227.99.991.910247.0 Self [id number] [place] Medicare Primary [id number] [id number] Self [id number] Medicare [place] Medicare Primary [id number] 2.16.840.1.514910.3.227.99.991.974709.0 Self [id number] Medicare [place] Medicare Primary [id number] 2.16840.1.515679.3.227.99.991.003315.0 Self [id number] [facility] [id number] SP [id number] [facility] [id number] SP [id number] [facility] [id number] SP [id number] Medicare P [id number] S [id number] MEDICAID M [id number] Self [id number] AARP U [id number] Self [id number] MEDICARE [id number] SP [id number] 9C1 MEDICAID M [id number] S [id number] AARP O [id number] S [id number] 3 MEDICAID [id number] SP [id number] [facility] [id number] SP [id number] [facility] [id number] SP [id number] MEDICARE [id number] SP [id number] [facility] MEDICAID [id number] SP [id number] V [id number] MEDICARE [id number] SP [id number] MEDICARE C [id number] S [id number] MEDICAID M [id number] S [id number] [place] [id number] SP [id number] Medicaid S UNAVAILABLE S [place] BLE Medicare P [id number] S [id number] AETNA MEDICARE [id number] SP [id number] MEDICAID [id number] SP [id number] Medicare S UNAVAILABLE S [place] BLE MEDICARE [id number] SP [id number] AETNA MEDICARE [id number] SP [id number] MEDICARE C [id number] S [id number] AETNA MEDICARE O [id number] S [id number] ANSI-Medicaid [id number] ANSI-Medicare Part B [id number] ANSI-Medicare Part B [id number] ANSI-Medicare Part B [id number] ANSI-Medicare Part B [id number] ANSI-Medicaid [id number] Medicare Dme [facility] Part B [id number] [id number] Self [id number] ANSI-Medicare Part B [id number] ANSI-Medicaid [id number] ANSI-Medicare Part B [id number] ANS-Medicaid [id number] ANSMedicare Part B [id number] ANSI-Medicare Part B [id number] Medicare Dme Supplies Medigap Part B [id number] Self [id number] Medicare Dme Supplies Medigap Part B [id number] Self [id number] [place] [id number] Self [id number] Medicare - [place] Medicare Primary [id number] Self [id number] Medicare Dme Supplies Medigap Part B [id number] Self [id number] Medicare Dme Supplies Medigap Part B [id number] Self [id number] Medicare Dme Supplies Medigap Part B [id number] [id number] Self [id number] [facility] [employer]IONS [id number] SP [id number] MEDICAID [id number] SP [id number] ANSI-Medicaid [id number] ANSI-Medicare Part B [id number] [place] Part B [id number]. 25613.0 Self [id number] Medicare - [facility] Medicare Primary [id number] Self 1 [id number] [facility] [id number] Problems, Conditions, and Diagnoses Code Display Name Description Problem Type Effective Dates Data Source(s) F41.1 Generalized anxiety disorder Generalized Anxiety Disor ino Condition 06/16/2021 12:00:00 AM EDT [facility] ([facility]) F25.0 Schizoaffective disorder, bipolar type S chizoaffective Disorder, Bipolar type Condition 06/16/2021 12:00:00 AM EDT [facility] ([facility]) I10 [id number] Essential hypertension Problem 05/25/2021 12 :00:00 AM EDT eCW1 ([facility]) K14.6 43001873 Tongue pain Problem 05/25/2021 12:00:00 AM E DT eCW1 ([facility]) [id number] Pure hypercholesterolemia Pure hypercholesterolemia Pr oblem 10/05/2020 12:00:00 AM EST [facility] ([facility] ) Surgeries/Procedures Procedure Description Date Indications Data Source(s) [facility] Telemed E/M Lvl 3--Est pt 06/16/2021 12:00:00 AM EDT - 06/16/2021 12:00:00 AM EDT [facility] ([facility]) MHC Telemed E/M Lvl 3--Est pt 06/16/2021 12:00:00 AM E DT [facility] ([facility]) Extended Individual Psychotherapy - 45 min 06/11/2021 12:00:00 AM EDT - 06/11/2021 12:00:00 AM EDT [facility] ([facility]) Extended Individual Psychotherapy - 45 min 12:00:00 AM EDT [facility] ([facility]) Extended Individual Psychotherapy - 45 min 05/20/2021 12:00:00 AM EDT - 05/20/2021 12:00:00 AM EDT [facility] ([facility]) Extended Individual Psychotherapy - 45 min 12:00:00 AM EDT [facility] ([facility]) MHC Telemed E/M Lvl 3--Est pt 04/29/2021 12:00:00 AM EDT - 04/29/2021 12:00:00 AM EDT [facility] ([facility]) Telemed A/O 30" 04/28/2021 12:00:00 AM EDT [facility] ([facility]) MHC Telemed E/M Lvl 3--Est pt 04/28/2021 12:00:00 AM E DT [facility] ([facility]) MHC Telemed E/M Lvl 3--Est pt 04/14/2021 12:00:00 AM EDT - 04/14/2021 12:00:00 AM EDT [facility] ([facility]) MHC Telemed E/M Lvl 3--Est pt 04/14/2021 12:00:00 AM E DT [facility] ([facility]) Extended Individual Psychotherapy - 45 min 03/26/2021 12:00:00 AM EDT - 03/26/2021 12:00:00 AM EDT [facility] ([facility]) Extended Individual Psychotherapy - 45 min 12:00:00 AM EDT [facility] ([facility]) OFFICE OUTPATIENT VISIT 15 MINUTES 03/03/2021 12:00:00 AM EDT [facility] ([facility] ) ARTHROCENTESIS ASPIR&/INJECTION MAJOR JT/BURSA 021 12:00:00 AM EDT [facility] ([facility] ) [facility] Telemed E/M Lvl 3--Est pt 12/23/2020 12:00:00 AM EDT - 12/23/2020 12:00:00 AM EDT [facility] ([facility]) [facility] Telemed E/M Lvl 3--Est pt 12/23/2020 12:00:00 AM E DT [facility] ([facility]) Extended Individual Psychotherapy - 45 min 12/21/2020 12:00:00 AM EDT - 12/21/2020 12:00:00 AM EDT [facility] ([facility]) Extended Individual Psychotherapy - 45 min 12:00:00 AM EDT [facility] ([facility]) ARTHROCENTESIS ASPIR&/INJECTION MAJOR JT/BURSA 021 12:00:00 AM EDT [facility] ([facility] ) ARTHROCENTESIS ASPIR&/INJECTION MAJOR JT/BURSA 021 12:00:00 AM EDT [facility] ([facility] ) Extended Individual Psychotherapy - 45 min 11/27/2020 12:00:00 AM EDT - 11/27/2020 12:00:00 AM EDT [facility] ([facility]) Extended Individual Psychotherapy - 45 min 12:00:00 AM EDT [facility] ([facility]) ARTHROCENTESIS ASPIR&/INJECTION MAJOR JT/BURSA 021 12:00:00 AM EDT [facility] ([facility] ) RADIOLOGIC EXAM KNEE COMPLETE 4/MORE VIEWS 11/13/2020 12:00:00 AM EDT [facility] ([facility] ) RADIOLOGIC EXAM KNEE COMPLETE 4/MORE VIEWS 11/13/2020 12:00:00 AM EDT [facility] ([facility] ) Extended Individual Psychotherapy - 45 min 11/10/2020 12:00:00 AM EDT - 11/10/2020 12:00:00 AM EDT [facility] ([facility]) Extended Individual Psychotherapy - 45 min 12:00:00 AM EDT [facility] ([facility]) [id number]"Psychotherapy 12:00:00 AM EST - 10/23/2020 12:00:00 AM EST [facility] ([facility]) [id number]"Psychotherapy 10/23/2020 12:00:00 AM EST [facility] ([facility]) Extended Individual Psychotherapy - 45 min 10/05/2020 12:00:00 AM EST - 10/05/2020 12:00:00 AM EST [facility] ([facility]) Extended Individual Psychotherapy - 45 min 12:00:00 AM EST [facility] ([facility]) X-Ray Hips Bilateral With Pelvis Minimum 5 Views 10/02 12:00:00 AM EST [facility] ([facility]) MHC Telemed E/M Lvl 3--Est pt 09/16/2020 12:00:00 AM EST - 09/16/2020 12:00:00 AM EST [facility] ([facility]) MHC Telemed E/M Lvl 3--Est pt 09/16/2020 12:00:[address] [facility] ([facility]) Extended Individual Psychotherapy - 45 min 08/27/2020 12:00:00 AM EST - 08/27/2020 12:00:00 AM EST [facility] ([facility]) Extended Individual Psychotherapy - 45 min 0 12:00:00 AM EST [facility] ([facility]) Extended Individual Psychotherapy - 45 min 08/07/2020 12:00:00 AM EST - 08/07/2020 12:00:00 AM EST [facility] ([facility]) Extended Individual Psychotherapy - 45 min 0 12:00:00 AM EST [facility] ([facility]) MHC Telemed E/M Lvl 3--Est pt 08/05/2020 12:00:00 AM EST - 08/05/2020 12:00:00 AM EST [facility] ([facility]) MHC Telemed E/M Lvl 3--Est pt 08/05/2020 12:00:[address] [facility] ([facility]) TEMPMHCTelemed 30" Psychotherapy 020 12:00:00 AM EST - 06/29/2020 12:00:00 AM EST [facility] ([facility]) TEMPMHCTelemed 30" Psychotherapy 06/29/2020 12:00:00 A M EST [facility] ([facility]) Extended Individual Psychotherapy - 45 min 06/26/2020 12:00:00 AM EDT - 06/26/2020 12:00:00 AM EDT [facility] ([facility]) Extended Individual Psychotherapy - 45 min 0 12:00:00 AM EDT [facility] ([facility]) Immunization: Flublok Quadrivalent (18 years & older) 0.5mL IM (Influenza) 06/16/2020 12:00:00 AM EDT eCW1 ([facility]) Extended Individual Psychotherapy - 45 min 06/09/2020 12:00:00 AM EDT - 06/09/2020 12:00:00 AM EDT [facility] ([facility]) Extended Individual Psychotherapy - 45 min 0 12:00:00 AM EDT [facility] ([facility]) Extended Individual Psychotherapy - 45 min 05/26/2020 12:00:00 AM EDT - 05/26/2020 12:00:00 AM EDT [facility] ([facility]) Extended Individual Psychotherapy - 45 min 0 12:00:00 AM EDT [facility] ([facility]) MHC Telemed E/M Lvl 3--Est pt 05/21/2020 12:00:00 AM EDT - 05/21/2020 12:00:00 AM EDT [facility] ([facility]) MHC Telemed E/M Lvl 3--Est pt 05/21/2020 12:00:00 AM E DT [facility] ([facility]) ARTHROCENTESIS ASPIR&/INJECTION MAJOR JT/BURSA 12:00:00 AM EDT [facility] ([facility]) ARTHROCENTESIS ASPIR&/INJECTION MAJOR JT/BURSA 12:00:00 AM EDT [facility] ([facility]) ARTHROCENTESIS ASPIR&/INJECTION MAJOR JT/BURSA 12:00:00 AM EDT [facility] ([facility]) Results ID Date Data Source [id number] 04/29/2021 12:33:00 AM EDT [facility] Name Value Range Interpretation Code Description Data Paulina rce(s) Supporting Document(s) SARS coronavirus 2 RNA [Presence] in Res piratory specimen by NIC with probe detection NEGATIVE [facility] This lab was ordered by [facility] a nd reported by [facility]. ID Date Data Source [id number] 03/25/2021 05:54:29 PM EDT [facility] Name Value Range Interpretation Code Description Data Paulina rce(s) Supporting Document(s) Progress Note [facility] LAFKQl8xHrUNYlEc06/UBLmwOSZop8BvGXkqFYt5VFxoEYLoC0EyJKY8wZ8tVOH1ZIiIKpVmKwGlQdI9 [facility] [file] ICAgICAgICAgICAgICAgICAgICAgICAgICAgICAgICAgICAgICAgICAgICAgICAgICAgICAgICAgICAg TZAhTENfSKWlLOBhKFJbRXTkMLYkHGRbSEQpGFLvHBHmDDMgPEFlVO5MWVHcTGTuUQGiEHOtIYCcXBZq ICAgICAgICAgICAgICAgICAgICAgICAgICAgICAgIC XiDBSaUEPfGPEnIMCvZDXqMVHcYIBwQORzYKCgSTDwTRCvWGKfMHVoEEMpETLwZLRtSC9UUEIiEKSyMF AgICAgICAgICAgICAgICAgICAgICAgICAgICAgICAgICAgICAgICAgICAgICAgICAgICAgICAgICAgIC AgICAgICAgICAgICAgICAgICAgICAgICAgICAgICAg JV4AWKNoXWPkFPWvXYCpAMRwPODzJGPgXNWyIKGcOXIiZCNhTGGiLWZrHOHuTFMpPBQbRYIkBMCwBQXj UJDnPZVjUGIhOHXaLAZgEYRhYYUySWAnICQkRKBwQJMfHFXoUICeTQHvGA2DTSAjLSMcKQFbEUGkPZDd ICAgICAgICAgICAgICAgICAgICAgICAgICAgICAgIC RdFIWcETLfZGGaSXNhWHFzBFYuVBBpTDGwEHDlUAJgHTMgQYOpJVBwMPSgPNKqPEWnUNAdED7AJNDiUG AgICAgICAgICAgICAgICAgICAgICAgICAgICAgICAgICAgICAgICAgICAgICAgICAgICAgICAgICAgIC AgICAgICAgICAgICAgICAgICAgICAgICAgICAgICAg TPSnHJ3GZGHbJUYdZBGyFUGxOLWwZKNaZCYmKMPvFUMxVIPtFVTyXOLdAFXkJYBdZDIhCKQiGYZsPNHr UTEvXRUxBRLlQNHdYBMkECNgNVCnVGNzTGNnQHJrHOVwCSMwOAVsWSYhVIThWV1BYWEzLDRvPXGcWNOd ICAgICAgICAgICAgICAgICAgICAgICAgICAgICAgIC KwKNWzLTAxDKXnBKYpQKYbZAXfPDMcXEWoSOCbAJCtOECxIREoNJBmEOBzPMCvOIUcSCIbWEMsTH3URG AgICAgICAgICAgICAgICAgICAgICAgICAgICAgICAgICAgICAgICAgICAgICAgICAgICAgICAgICAgIC AgICAgICAgICAgICAgICAgICAgICAgICAgICAgICAg FCOuQNEaEV1LQTSwDETxNIUeITJuZQAmKMTdEHZkISGiYHFnYVWnTBVvVGLnIHSxMABdKPWuRMIfUNVx TCGoWKIjHBOpHHGsPSYfHMElEGIrQMBuGGBdQJLwRXWnUTEgIQDcMRIoJQNjCIQxPS5NWC77wALnr3E1 KRSdNP2zxhm/Vv9NSWvellVkqWDuXC2EEbUiPK1lif 3XWfPtGM4wac1PAOtPQcIlC3P9qFApBQWqAMHFWzBuL58nBHugRs13CQxhRBRaKzKwKLz2Ut8RDuMlA1 hcGRDdUiG7ZGVdQnJ8DNZrIyI2JTHeWaCmSCCfGIZlRXMnKXETNGC5GZDaKmJiYiYoABWcSMylRRHMXW 6DNuJnX6OpiK65CIbCMn1+DQplbmRvYmoNCjMzIDAg s9AjTLk3IK3IMSWiYkaap9SvSaVtYCWIDIfaOA4QSIF8GKT0DOWgDu8AOIKfM689ewYbQF5IHe6HRkKo YQ9kqx9UEjVgZLRmZaoSPjh4CCxvJH0ZmVObMLlTnh2izcLskcFZq1GabeUanWZVk12cLiQ5yKIpEYuz XZBrUGQqQf6eOa2cFJHjESP1OrWvGBMVIZ2FYJAnNL GssNVmTZWsCCJACT0RYRyrTGZ7JZXvrdMeuNSsGVsbOR9OPFXtecJsAfAjCMTPSDq+Po4DKZ2bq7BrFC kxXKJpUI6ujb5BWPbHFjTcX7S2uIPkP1U1TNpbZc2LMAZhVHTiPgMzGMBBTLvcBD9NNP9npgM6PK7NqJ BcLXXaEFDxoXDmSQu0V07cyOWzYRvwFY3MIQY+Jennifer+ Zm2IRHYgNCIaGNFyShUwWDXAEbLnV1GbX5EYy7UmS2KbGM84pRajlfPyXPklOI2LCH2aJSPjUTYUYC7O qFMykK8dnuGaMtUpRULEXiLlT93tvUPuYCXeIKBkNSZlKp8RETDrC6XqztNclIkabqKeCFVkBAMHJY5X MBmxocPsyRBzjZdqDO53jQesWA8SSy7BEkTfYB4tfm 5TpJJuPh8YLCZuPe2IPSInXCHiDYLbCTD9CWZkUaBfZNmtBVNiEUJgRTU4PYSyJGYfZK3WXnQySMUgNe ttWfctGKFqKKNhie8VPCVaVSGxTKc1InVoXPOlSMYiZGheGPKgLRZzLZQ8HMWuMCBtCG4HNwFcZNHqMX D2RGwuYWThYKVvzt7PGOQdUNFkGNThYCLwPNFqPKXj DPqlCQGjDTP7VCv2SQPgUHLrCO1IDfMpZMLvPEnqNlerEZTuFTMvnd9OBZLdAWElBLY7TLOyGKErDGJf KBbqIDCvIOKkUmm2YGVnJLCdZL6OEyElTVXkYIA5WJIbONSjJOGhvs1JUQVsYXQfIqy5JXOhANBpFONs XZqaJQFsKCH1NWgeXKItBHGmQK5RTdXtUKImVNYaEU VvQHUoGYLozy4YQTHpCNTkNZG0DQWdITNvDTKiIPjdPWZgUDG6SUs1WVUlQKZwZT0MUwUfYAJcAgOfIN RvYGHyZBUldo5WSBSuDXNmYlL4QGTsBDSbRRYmSKvfQNVsVRUvKZMvXTPzSOZbPV9ZTxDpQWGfMxIzBA MsDALcJQAccu5BYVAzDVPmCYDxYcYbLUErHHFaSUxf NRZoNMC9MsFkMIKyNILhQR4YQkDdLNUbBkUgZQPaEROmMLQuhr4DINIcMGVgDCY5OEFvFQYuVNAnLHoc TISzPOM9PSI2FQKrWOGsHV2CUwBcLTByKmI3IVFbSUWgGFJjbm2GNEMsOCAkMbC3PWQcHENwXCCrGMiu EIWnPHB3IXBhGXUcTIXfZY8OBxGeELSePjl5KHwzVD QyNBQwox4RHDHhGCRrBfm6UOAdLRWoOVSyXGshZZFwMXE4KHX9JNRrBOKvLH6DDiTeELVwUsr6ECTjYS DzPZNesw5JVOUiXBLfPHv0SHXnIGIvHJHdYTsuHFCeNCPtPYOqLJSmDTKvYK8YUtXjLCSlHIKnOJiuEK ThSZWgvq0GkIUtmZaanx2CYKhAWe5YyVjuUNS8GCmb Ia7whWRdKBAyJEAVCu1XdvGxFPFrCWHHBCkkZHRyUIC9YaQpNHIjJlEnVYO1D8P7IfjfQ0RqXpl5ZoSs IqDpBdW3XEf9RgPcYRZtAMM6VfVoIRWdKUMlNlMmVBK0BtM2MPR+WB8iFVd+Em5Gg9CsbwQ4ehZyISl7 VOJ2Mg4UFQQKI9DHYc== ID Date Data Source [id number] 12/12/2020 04:46:15 PM [facility] Name Value Range Interpretation Code Description Data Paulina rce(s) Supporting Document(s) Progress Note [facility] CAOPGq7mJmYFPpSf20/CKLgwCAKfc5GmQXoeNDd4OMwwWZWdK0TtWTI6nI8zAYD3EGjCHyVkSpGhBIT9 lbm [file] ICAgICAgICAgICAgICAgICAgICAgICAgICAgICAgICAgICAgICAgICAgICAgICAgICAgICAgICAgICAg ICAgICAgICAgICAgICAgICAgICAgICAgDQogICAgIC AgICAgICAgICAgICAgICAgICAgICAgICAgICAgICAgICAgICAgICAgICAgICAgICAgICAgICAgICAgIC AgICAgICAgICAgICAgICAgICAgICAgICAgICAgICAgICAgDQogICAgICAgICAgICAgICAgICAgICAgIC AgICAgICAgICAgICAgICAgICAgICAgICAgICAgICAg ICAgICAgICAgICAgICAgICAgICAgICAgICAgICAgICAgICAgICAgICAgICAgDQogICAgICAgICAgICAg ICAgICAgICAgICAgICAgICAgICAgICAgICAgICAgICAgICAgICAgICAgICAgICAgICAgICAgICAgICAg ICAgICAgICAgICAgICAgICAgICAgICAgICAgDQogIC AgICAgICAgICAgICAgICAgICAgICAgICAgICAgICAgICAgICAgICAgICAgICAgICAgICAgICAgICAgIC AgICAgICAgICAgICAgICAgICAgICAgICAgICAgICAgICAgICAgDQogICAgICAgICAgICAgICAgICAgIC AgICAgICAgICAgICAgICAgICAgICAgICAgICAgICAg ICAgICAgICAgICAgICAgICAgICAgICAgICAgICAgICAgICAgICAgICAgICAgICAgDQogICAgICAgICAg ICAgICAgICAgICAgICAgICAgICAgICAgICAgICAgICAgICAgICAgICAgICAgICAgICAgICAgICAgICAg ICAgICAgICAgICAgICAgICAgICAgICAgICAgICAgDQ ogICAgICAgICAgICAgICAgICAgICAgICAgICAgICAgICAgICAgICAgICAgICAgICAgICAgICAgICAgIC AgICAgICAgICAgICAgICAgICAgICAgICAgICAgICAgICAgICAgICAgDQogICAgICAgICAgICAgICAgIC AgICAgICAgICAgICAgICAgICAgICAgICAgICAgICAg ICAgICAgICAgICAgICAgICAgICAgICAgICAgICAgICAgICAgICAgICAgICAgICAgICAgDQogICAgICAg ICAgICAgICAgICAgICAgICAgICAgICAgICAgICAgICAgICAgICAgICAgICAgICAgICAgICAgICAgICAg ICAgICAgICAgICAgICAgICAgICAgICAgICAgICAgIC AbETa8K1ayVHPbOSKrIF6aWSk6Wc1+RWlWQlBhSUN8zwGbaF9RGK5nh1SnZAahJPEsy5ObGQv7PI3KUN OvKNmoHS5DONvjka8UTGXhQLNryKAYd1hwIdAsZGG7OATmRlysRV8ALYDpY1pvjfCqYWEnLLVSKVndIW BSIDkgMCBSIDExIDAgUiAxMyAwIFIgMTUgMCBSIDE3 KLAgMoSvLFTcYKPaQF2GMAJnS459kwAsRL1EBx9SQvSeIY9jor6FKjKePVCjYudQJeo7XGaiKT3PmLDe uKPqDAXcOFLDWkPvS0vlw7SjPnSaONRKZUseKV9De8ZujPZoKPp+Ix8MRD5le0LpUWukVRDhYC4fda3A ACbGDbEmM0NosYxeUTNpb6cvAVAjZV5feEJrRPC9CD logGFRKVGvXB8bFALAECEiyZL5NlWiPbUfSICrTymhUXBGFHvWPfAcO1Ehb5XsGkU1ALVvQwXaCFfdQE CgGqT7YL52sNpcLZ2BJVHoFUDyOC24LVSwXXOyFu0UNs8ZQxAeWF5ads2PVoHhCMQdDcbQStz1ZDglDI 7VrGPcA1IiwQYit2tXHfMrN9XFFUYrFSKhKk3BSOTm QyUnFFYfKEvuRN3hDHVoSYDExFnyjmP5EQ4QYE8telJoQO4GXuAhOn2dSf4CIvIlW7BdH9DcMCQwEJVR QHegOW0QPImpGK5kVN4Om3GWlEYotU5vfe3CJCMmGUFtObhltf1OJmaaV0M3iQojRBNeWrFyGSFOUFqc PF0TDGTyAHQ7ZMYwSrTjOGHHYhHzE62cHD6VC7Qrh7 2qLcQ9OPYgYvPjNSmmEQ88mNcgdxKfxRBdmGdePQ4WGa5+DQplbmRvYmoNCnhyZWYNCjAgMzYNCjAwMD RjFMDfEMGjUkC6SbNkBl2NTVByZYHjXUJoHfSdEFJyQOTvXXswWZInYZF8SBO9NHKhMRGvVM2UFvRfUF MlNfi0AUgmXVGoKYDnvd1FFLToYDRhSDP3OmWnSXLe EIIoAOlrANLrYVDuGaVcIJXkFQHpFW9UHyBlZTFtJLU0DIGvEUVgSRTgpe7PUPLfXQOyRxjaDEKiJJOc VMKoEAymIMSeWPM9FQTjHIFwQHEqYT2NKhPzMFDaMXw4QUAlLMTwUIWpym4KOIAqGTQcAEBbGNDxVJCh UISvAEqsLDVvACRkZAP5YSIkPWQwFU8IDuOfPUDtKR I5UfRdHTXqWRBkbo9IWDTtAXTiJEA6SNQhXMZwROCwXUouAMVxACB5KCX2LDDbIRPsKY1XXoHbJXBqWC kdFTEcDCUiGZRcuz4MOXUiVCNxLMP1VzLaBJXuQLGyVKmjACNdBAKpFCc5PNFgVZPjWF1YLbZmBYYhMh T6OELrUHHaTALmvz1CTXDpAHUnKrF7GFTsRPRdVRGv FDsjLDSdYASlFzz0LHMkZLRfYB5MEcJiALQqKzQ6RXkkRDMyFKVmsr0EZHIsDRHwPce6IWTeEHVqRZFq EDflUKAyHPO6QXF2BPOoPDUdUM4ALwUkAPSiCjNkZTVsMZIiGKKhoj8JKVLeVVOrMXK6BLGgOFXpMDDn GHmfMPVkGQB5LHr4BSTbWAGbLW5TVbFaKPNeYrI1YQ PlFRHzXDEctf1PSFVjGCMsXmE1VDPxIPLxAUUqBJneNTQtSTF2BCGkDQGlJDVeXK7NSlTtYGKxFic2JC CtQQXbIFXygl8ODRYjZEOgFkb0FvNxBTCyHXZoMNfrSTZkYSG8SgF0CKXvMIKjSB9BDzYrWLHbOwq9Qe WyXJJwBGMagy5VXUYlWJMdSHyyTjCcQGIjHXBaQHgn IOSfAMX3HQG3YHRmJEXpDL8TTqYvODlhNIXPHze2EYmzU2b7APYpAh8MM8Hzi3CuIdRkQIFSSVrmSH4b vgNnNARnDh4VJ3mFKfjkIUE8DIAyBACkLrE5YreiLdviC1UnRJAqLmGtMXL7GK2rQPR6RzStUHBiOQTy BjqmRFPxYHUvFoK3TjU3YIRoRfQ9TjQcYW4HMf6PUtQ2NMI9kAUdUq9LILPxUZJUQsXyAL1ILCc= ID Date Data Source [id number] 10/30/2020 12:00:00 AM EST [facility] Carlos Miller MD Patient Name: NIGEL [id number] [facility] Date of : 1960[place] [address] Date of Exam: 10/30/2020#: Fax: [phone] EXAM: ARTHROCENTESIS RTHIP-ASPIR / INJ STEROID/PAIN MEDSRIGHT HIP INJECTION:The procedure was performed by ALEE Sharma under the directsupervision of Dr. Howell.The benefits and risks including, but not limited to pain, infection,bleeding, and anaphylaxis were explained to the patient and informedconsent was obtained.The right femoral neck was localized using fluoroscopic guidance. The skinwas prepped and draped in a sterile fashion. 1% Lidocaine was used as alocal anesthetic. Using fluoroscopic guidance, a #22 gauge spinal needlewas inserted and advanced to the femoral neck. 1 cc of Omnipaque 300 wasinjected to verify placement. 6 cc of a solution containing 5 cc of 1%Lidocaine and 1 cc of Kenalog 40 mg was injected into the joint space. Theneedle was then removed.The patient tolerated the procedure well and there were no immediatecomplications.Fluoroscopy time was 3 seconds at 3 pulses/second. This is equal to 1second of continuous fluoroscopy time which is a 75% reduction inradiation.Km Howell, FRANSICO/jmcThank you for referring NIGEL SEVILLA to our office. Electronically Signed - KM HOWELL MD 10/30/20 13:06 Name Value Range Interpretation Code Description Data Paulina rce(s) Supporting Document(s) ID Date Data Source [id number] 10/30/2020 12:00:00 AM EST [facility] Calros Miller MD Patient Name: NIGEL [id number] [facility] Date of : 1960[place] [address] Date of Exam: 10/30/2020#: Fax: [phone] EXAM: ARTHROCENTESIS RTHIP-ASPIR / INJ STEROID/PAIN MEDSRIGHT HIP INJECTION:The procedure was performed by ALEE Sharma under the directsupervision of Dr. Howell.The benefits and risks including, but not limited to pain, infection,bleeding, and anaphylaxis were explained to the patient and informedconsent was obtained.The right femoral neck was localized using fluoroscopic guidance. The skinwas prepped and draped in a sterile fashion. 1% Lidocaine was used as alocal anesthetic. Using fluoroscopic guidance, a #22 gauge spinal needlewas inserted and advanced to the femoral neck. 1 cc of Omnipaque 300 wasinjected to verify placement. 6 cc of a solution containing 5 cc of 1%Lidocaine and 1 cc of Kenalog 40 mg was injected into the joint space. Theneedle was then removed.The patient tolerated the procedure well and there were no immediatecomplications.Fluoroscopy time was 3 seconds at 3 pulses/second. This is equal to 1second of continuous fluoroscopy time which is a 75% reduction inradiation.Km Howell, FRANSICO/Liza you for referring NIGEL SEVILLA to our office. Electronically Signed - KM HOWELL MD 10/30/20 13:06 Name Value Range Interpretation Code Description Data Paulina rce(s) Supporting Document(s) ID Date Data Source VITAMIN D 25-HYDROXY 10/08/2020 12:00:00 AM EST eCW1 ([facility]) Name Value Range Interpretation Code Description Data Paulina rce(s) Supporting Document(s) 26.2 30.0-100.0 TOTAL 25(OH) VITAMIN D eC W1 ([facility]) ID Date Data Source TSH 10/08/2020 12:00:00 AM EST eCW1 ([facility]) Name Value Range Interpretation Code Description Data Paulina rce(s) Supporting Document(s) 4.340 0.358-3.740 THYROID STIMULATING HORM ONE eCW1 ([facility]) ID Date Data Source LIPID PANEL (CARDIAC RISK) 10/08/2020 12:00:00 AM EST eCW1 ( [facility]) Name Value Range Interpretation Code Description Data Paulina rce(s) Supporting Document(s) Cholesterol in HDL [Moles/volume] in Serum or Plasma 68 >40 HDL CHOLESTEROL eCW1 ([facility]) Triglyceride [Mass/volume] in Serum or Plasma by calculation 191 <150 TRIGLYCERIDES LEVEL eCW1 ([facility]) Cholesterol [Moles/volume] in Serum or Plasma 208 <200 CHOLESTEROL LEVEL eCW1 ([facility]) 140 NON-HDL-C eCW1 ([facility]) 3.058 <5 CHOLESTEROL RISK RATIO eCW1 ([facility]) Cholesterol in LDL [Mass/volume] in Serum or Plasma by calculation 102 <100 LDL CHOLESTEROL eCW1 ([facility]) ID Date Data Source Comprehensive Metabolic Profile (CMP) 10/08/2020 12:00:00 AM EST eCW1 ([facility]) Name Value Range Interpretation Code Description Data Paulina rce(s) Supporting Document(s) 0.76 0.55-1.30 CREATININE FOR GFR eCW1 ([facility]) 87 70-100 GLUCOSE, FASTING eCW1 ([facility]) 14 7-18 BLOOD UREA NITROGEN eCW1 ([facility]) 3.8 3.5-5.1 POTASSIUM SERUM eCW1 ([facility]) 102 98-107 CHLORIDE LEVEL eCW1 ([facility]) > 60.0 >45 GLOMERULAR FILTRATION RATE eCW 1 ([facility]) 141 136-145 SODIUM LEVEL eCW1 (Count includes the [facility]) 10.0 8.8-10.2 CALCIUM LEVEL eCW1 ([facility]) 32 21-32 CARBON DIOXIDE LEVEL eCW1 (Counts include 234 beds at the [facility]) 19 7-37 AST/SGOT eCW1 ([facility]) 28 12-78 ALT/SGPT eCW1 ([facility]) 133 45-117 ALKALINE PHOSPHATASE eCW1 (Counts include 234 beds at the [facility]) 0.3 0.2-1.0 BILIRUBIN,TOTAL eCW1 ([facility]) 7.5 6.4-8.2 TOTAL PROTEIN eCW1 ([facility]) 1.0 1.2-2.2 ALBUMIN/GLOBULIN RATIO eCW1 ([facility]) 3.8 3.2-5.2 ALBUMIN eCW1 ([facility]) ID Date Data Source [id number] 06/10/2020 09:13:13 AM EDT [facility] Name Value Range Interpretation Code Description Data Paulina rce(s) Supporting Document(s) Progress Note [facility] LVCBDk9dHbOFJyPl92/DZCuvRRAxz9KeORhhZRz2SIieILSvU2ThNKH9jO8kTGU7YKvDTsXaFtObMJX3 lbm [file] fRsx/okG2v5IweCqvTSEzlOWHwZGLCoNpHZOOlMPA00gETfVQ/lurUnw49dKWi/Sofía+IvhhC6Mg9/Vlb px49jrlNT3E+Pvmb3/oqJ77JT/3yO6zK0HIX0yl6SsPMVnSTuepdGrMyfWMjFtYICtl1FrJJrrLUz2ST szIMFrA5R5wZPiVHWxGS0RLEMrCV5KBFAojjUsUlQo QALRFiBdOKEmNgPpe7VsU1VxBTOqXHLMHCfbDVAoV84tJUksLt93HDsmHUImOkMaYOv5Xo6ZMmQnWZUm Z40apAGpgSBoVOUuFIVEZIlwTOXlW7azg7MjGBw6SO2OVN3OdvMeu6WgtjZyF1hgZ7RSYN6WQCKbK0NB E3QdO5zuEhLdp3QeR5fpRlTqp9JqUl1EBdEjZw9QEl TjPT2ufa8ZRPRoTGDtCrhDTsUgORhbRadqzEEkLL3NgGN9YIDpA80yHNRdAHKgZ7HtUTKpPwp+Pg0KIC HbwLEkFS5FBwvJ8M5oj5aRJu2+xW9WjJ48XSsi1cFfJrBy8iqNG1jTSr7T1d+0FBxkaLSt3YI4h/1RfE tj9rzRJcw0J/wBRRnV2UhtqGu8x+U49Z/jiZHPlL9q bJ8xn97J9YxezP/+kep07kisu1yy4Eg168jvD3X+mk4L5/lp6iitIWwl1Clg58ynBW8clpsor/HH9Cyf p0W+mI+PLo+LzX+2s6RBgDFxbvWniRc5dNTlQ7knC4/22V8BH62t6yxiX4CaUZ1Bu4cAASjWV1boPkOJ Zx++addi/Mmd3svesrXGYpahJl0CbHKdYURoq+tVqve Ibb7UetSjHFMFAQTqWHfB4Pqc9pl/YvpoiOFOKAZtzRhCaIfQoCi/br49vfbltE2NSG/bJChNYv0JUVA cSNzBk7gkSVbxq6LnxnaAeesFdw+Ja/MWAtzYNo3ln3GMHu2n7AQqTO9uNA5PcPnHKyd3SFw3NMuW3D [file] YNCg== ID Date Data Source PAP REQUEST FOR SERVICE 06/09/2020 12:52:46 PM EDT eCW1 (Counts include 234 beds at the [facility]) Name Value Range Interpretation Code Description Data Paulina rce(s) Supporting Document(s) Laboratory studies (set) PAP REQUEST FOR SERVICE eCW1 ([facility]) ID Date Data Source WWBC Hema Screening Bilateral (Ultrasound if Indicated ) (3D Mammo) 06/09/2020 10:51:08 AM EDT eCW1 ([facility]) Name Value Range Interpretation Code Description Data Paulina rce(s) Supporting Document(s) WWBC Hema Screening Bilat eral (Ultrasound if Indicated) (3D Mammo) eCW ([facility]) ID Date Data Source [id number] 05/13/2020 08:45:51 AM EDT [facility] Patient History Medical History:Hip repl acement 2018 leftacid reflux disease arthrisits thyroid conditionMental health issues Family History:Social/Personal History: Smoking Status: never smokerCurrent Problems: Other and unspecified diseases of the oral soft tissues (ICD-528.9) (NLF44-S90.89)Current Medications: AMOXICILLIN 500 MG CAPS (AMOXICILLIN) 4 tabs 1 hour prior to appointment; Route: ORALCHLORHEXIDINE GLUCONATE 0.12 % SOLN (CHLORHEXIDINE GLUCONATE) Rinse for 1 minute with 10mL before bed; Route: MOUTH/THROAT* CALCIUM * DOCUSATE SODIUM * OLANZAPINE * SERTRALINE HCI * POLYVINYL ALCOHOL * TIMOLOL MALEATE * LANOPROST EYE DROPS * MELOTONIN * CYCLOBENZAPRINE * TRAMADOL * OMERAZOLE * LEVOTHRYOXINE SODUIM * LITHUIM CARBONATE * HYDROXYCHOLOROQUINE SULFATE * CALCUIM CARBONATE * QUETIAPINE FUMARATE * ASPRIN * OLANZAPINE * AMMONIUM LACTATE * SERTRALINE HCL * FEXOFENDINE HCL Current Allergies: * HYGROXYZINE (Critical)* CHLORPROMAZINE (Critical)* TJOPRODAZINE (Critical)* BUPROPION (Critical)* BENZO NALATE (Critical)Past Medical History:(reviewed - no changes required) Hip replacement 2018 leftacid reflux disease arthrisits thyroid conditionMental health issues Dental Chart: Procedures:Type - CDT Code - Description B - (D0120) Periodic oral evaluation - established patient (Performed by Kasandra Bull DDS) B - (D1110) Prophylaxis, adult (Performed by Yady Lilly) B - (D0274) Bitewings, 4 radiographic images (Performed by Yady Lilly) Treatments:Type - CDT Code - Description T - (D2140) Amalgam-one surface, primary or permanent on Tooth # 28 on Tooth Surface B (Performed by Yady Lilly) Existing:Type - CDT Code - Description[E] Decay On #28 Surface B Chart Alert:03/12/20 patient has lots of refills on her Pre-Med for the next several appts. Chart Notes:austen (May 13 2020 10:09AM): [facility](-). CC: none. Reviewed Xrays. Exam: caries detected. OCS: WNL, IO/ EO completed, No significant hard findings upon clinical exam.Additional PPE requirements due to COVID-19 in the dental setting, N95, surgical mask, hair covering, gown and shieldPt was cooperative.. OHI given Referral: N/A NV: Yady Giles by austen (05/13/2020 10:09 AM): ; alfonso (May 13 2020 9:43AM): [facility]- no changescc-I keep getting sores which come and go, and i need something for painRecommended oragel Additional PPE requirements due to COVID-19 in the dental setting, N95, surgical mask, hair covering, gown. Patient presented for her appointment with her caregiverAdult prophy -handscaled, polished with rotary cup, flossed 4BWX- dexisPatient reported brushing once/day, not flossing and no rinses. Said it hurt her mouth Generalized marginal biofilm with with trace marginal and interproximal calculus in sextant 5. Xerostomia observed. Patient said biotene and Acr drymouthwash hurt her mouth. Gave samples of Listerine zero total care and ACt bubblegumUsed hand instrumentsTissues- mild bleeding on flossingOHI- brushing am pm, flossing and then using Listerine zero total carePatient was cooperativeNV-Yady Bocanegra by alfonso (05/13/2020 9:43 AM): Tooth Notes and Watches:- Tooth 9 Note: Patient has lost her crown on # 9Baker, Yady by alfonso (08/15/2019 11:13 AM): Assessment & Plan Medications:AMOXICILLIN 500 MG CAPSCHLORHEXIDINE GLUCONATE 0.12 % SOLNCALCIUMDOCUSATE SODIUMOLANZAPINESERTRALINE HCIPOLYVINYL ALCOHOLTIMOLOL MALEATELANOPROST EYE DROPSMELOTONINCYCLOBENZAPRINETRAMADOLOMERAZOLELEVOTHRYOXINE SODUIMLITHUIM CARBONATEHYDROXYCHOLOROQUINE SULFATECALCUIM CARBONATEQUETIAPINE FUMARATEASPRINOLANZAPINEAMMONIUM LACTATESERTRALINE HCLFEXOFENDINE HCLAllergies:* HYGROXYZINE (Critical)* CHLORPROMAZINE (Critical)* TJOPRODAZINE (Critical)* BUPROPION (Critical)* BENZONALATE (Critical) Name Value Range Interpretation Code Description Data Paulina rce(s) Supporting Document(s) Procedure Social History Code Duration Value Status Description Data Source(s ) Smoking 06/16/2021 12:00:00 AM EDT Unknown if ever smoked comp leted Unknown if ever smoked [facility] ([facility]) Smoking 06/11/2021 12:00:00 AM EDT Unknown if ever smoked comp leted Unknown if ever smoked [facility] ([facility]) Smoking 05/25/2021 12:00:00 AM EDT Never Smoker completed Never S moker eCW1 ([facility]) Smoking 05/25/2021 12:00:00 AM EDT Never Smoker completed Never S moker eCW1 ([facility]) Smoking 05/25/2021 12:00:00 AM EDT Never Smoker completed Never S moker eCW1 ([facility]) Smoking 05/25/2021 12:00:00 AM EDT Never Smoker completed Never S moker eCW1 ([facility]) Smoking 05/25/2021 12:00:00 AM EDT Never Smoker completed Never S moker eCW1 ([facility]) Smoking 05/25/2021 12:00:00 AM EDT Never Smoker completed Never S moker eCW1 ([facility]) Smoking 05/25/2021 12:00:00 AM EDT Never Smoker completed Never S moker eCW1 ([facility]) Smoking 05/20/2021 12:00:00 AM EDT Unknown if ever smoked comp leted Unknown if ever smoked [facility] ([facility]) Smoking 04/29/2021 12:00:00 AM EDT Unknown if ever smoked comp leted Unknown if ever smoked [facility] ([facility]) Smoking 04/26/2021 12:00:00 AM EDT Never Smoker completed Never S moker eCW1 ([facility]) Smoking 04/26/2021 12:00:00 AM EDT Never Smoker completed Never S moker eCW1 ([facility]) Smoking 04/26/2021 12:00:00 AM EDT Never Smoker completed Never S moker eCW1 ([facility]) Smoking 04/26/2021 12:00:00 AM EDT Never Smoker completed Never S moker eCW1 ([facility]) Smoking 04/26/2021 12:00:00 AM EDT Never Smoker completed Never S moker eCW1 ([facility]) Smoking 04/14/2021 12:00:00 AM EDT Unknown if ever smoked comp leted Unknown if ever smoked [facility] ([facility]) Smoking 03/26/2021 12:00:00 AM EDT Unknown if ever smoked comp leted Unknown if ever smoked [facility] ([facility]) Alcohol intake 03/25/2021 12:00:00 AM EDT Current non-d kenan of alcohol (finding) completed Current non-drinker of alcohol (finding) [facility] Tobacco use and exposure 03/25/2021 12:00:00 AM EDT Never used co mpleted Never used [facility] Smoking 03/25/2021 12:00:00 AM EDT Never [facility]oker [facility] Smoking 03/10/2021 12:00:00 AM EDT Never Smoker completed Never S moker eCW1 ([facility]) Smoking 03/10/2021 12:00:00 AM EDT Never Smoker completed Never S moker eCW1 ([facility]) Smoking 03/10/2021 12:00:00 AM EDT Never Smoker completed Never S moker eCW1 ([facility]) Smoking 03/03/2021 12:00:00 AM EDT Non Smoker completed Non Smoke r [facility] ([facility]) Smoking 12/23/2020 12:00:00 AM EDT Unknown if ever smoked comp leted Unknown if ever smoked [facility] ([facility]) Smoking 12/21/2020 12:00:00 AM EDT Unknown if ever smoked comp leted Unknown if ever smoked [facility] ([facility]) Alcohol intake 12/12/2020 12:00:00 AM EDT Current non-d kenan of alcohol (finding) completed Current non-drinker of alcohol (finding) [facility] Smoking 11/27/2020 12:00:00 AM EDT Unknown if ever smoked comp leted Unknown if ever smoked [facility] ([facility]) Smoking 11/10/2020 12:00:00 AM EDT Unknown if ever smoked comp leted Unknown if ever smoked [facility] ([facility]) Smoking 10/23/2020 12:00:00 AM EST Unknown if ever smoked comp leted Unknown if ever smoked [facility] ([facility]) Smoking 10/07/2020 12:00:00 AM EST Never Smoker completed Never S moker eCW1 ([facility]) Smoking 10/07/2020 12:00:00 AM EST Never Smoker completed Never S moker eCW1 ([facility]) Smoking 10/07/2020 12:00:00 AM EST Never Smoker completed Never S moker eCW1 ([facility]) Smoking 10/07/2020 12:00:00 AM EST Never Smoker completed Never S moker eCW1 ([facility]) Smoking 10/07/2020 12:00:00 AM EST Never Smoker completed Never S moker eCW1 ([facility]) Smoking 10/07/2020 12:00:00 AM EST Never Smoker completed Never S moker eCW1 ([facility]) Smoking 10/07/2020 12:00:00 AM EST Never Smoker completed Never S moker eCW1 ([facility]) Smoking 10/07/2020 12:00:00 AM EST Never Smoker completed Never S moker eCW1 ([facility]) Smoking 10/07/2020 12:00:00 AM EST Never Smoker completed Never S moker eCW1 ([facility]) Smoking 10/07/2020 12:00:00 AM EST Never Smoker completed Never S moker eCW1 ([facility]) Smoking 10/07/2020 12:00:00 AM EST Never Smoker completed Never S moker eCW1 ([facility]) Smoking 10/07/2020 12:00:00 AM EST Never Smoker completed Never S moker eCW1 ([facility]) Smoking 10/07/2020 12:00:00 AM EST Never Smoker completed Never S moker eCW1 ([facility]) Smoking 10/07/2020 12:00:00 AM EST Never Smoker completed Never S moker eCW1 ([facility]) Smoking 10/07/2020 12:00:00 AM EST Never Smoker completed Never S moker eCW1 ([facility]) Smoking 10/07/2020 12:00:00 AM EST Never Smoker completed Never S moker eCW1 ([facility]) Smoking 10/07/2020 12:00:00 AM EST Never Smoker completed Never S moker eCW1 ([facility]) Smoking 10/07/2020 12:00:00 AM EST Never Smoker completed Never S moker eCW1 ([facility]) Smoking 10/05/2020 12:00:00 AM EST Unknown if ever smoked comp leted Unknown if ever smoked [facility] ([facility]) Smoking 09/16/2020 12:00:00 AM EST Unknown if ever smoked comp leted Unknown if ever smoked [facility] ([facility]) Smoking 08/27/2020 12:00:00 AM EST Unknown if ever smoked comp leted Unknown if ever smoked [facility] ([facility]) Smoking 08/07/2020 12:00:00 AM EST Unknown if ever smoked comp leted Unknown if ever smoked [facility] ([facility]) Smoking 08/05/2020 12:00:00 AM EST Unknown if ever smoked comp leted Unknown if ever smoked [facility] ([facility]) Smoking 06/29/2020 12:00:00 AM EST Unknown if ever smoked comp leted Unknown if ever smoked [facility] ([facility]) Smoking 06/26/2020 12:00:00 AM EDT Unknown if ever smoked comp leted Unknown if ever smoked [facility] ([facility]) Smoking 06/16/2020 12:00:00 AM EDT Never Smoker completed Never S moker eCW1 ([facility]) Smoking 06/16/2020 12:00:00 AM EDT Never Smoker completed Never S moker eCW1 ([facility]) Smoking 06/16/2020 12:00:00 AM EDT Never Smoker completed Never S moker eCW1 ([facility]) Smoking 06/16/2020 12:00:00 AM EDT Never Smoker completed Never S moker eCW1 ([facility]) Smoking 06/16/2020 12:00:00 AM EDT Never Smoker completed Never S moker eCW1 ([facility]) Smoking 06/16/2020 12:00:00 AM EDT Never Smoker completed Never S moker eCW1 ([facility]) Smoking 06/16/2020 12:00:00 AM EDT Never Smoker completed Never S moker eCW1 ([facility]) Smoking 06/16/2020 12:00:00 AM EDT Never Smoker completed Never S moker eCW1 ([facility]) Smoking 06/16/2020 12:00:00 AM EDT Never Smoker completed Never S moker eCW1 ([facility]) Smoking 06/16/2020 12:00:00 AM EDT Never Smoker completed Never S moker eCW1 ([facility]) Smoking 06/16/2020 12:00:00 AM EDT Never Smoker completed Never S moker eCW1 ([facility]) Alcohol intake 06/10/2020 12:00:00 AM EDT Current non-d kenan of alcohol (finding) completed Current non-drinker of alcohol (finding) [facility] Smoking 06/09/2020 12:00:00 AM EDT Unknown if ever smoked comp leted Unknown if ever smoked [facility] ([facility]) Smoking 05/26/2020 12:00:00 AM EDT Unknown if ever smoked comp leted Unknown if ever smoked [facility] ([facility]) Smoking 05/21/2020 12:00:00 AM EDT Unknown if ever smoked comp leted Unknown if ever smoked [facility] ([facility]) Vital Signs ID Date Data Source UNK Name Value Range Interpretation Code Description Data Source(s) Body weight 227 [lb_av] 227 [lb_av] eCW1 ([facility]) Body weight 102.97 kg 102.97 kg W1 ([facility]) Body height [in_i] eCW1 ([facility]) Body mass index (BMI) [Ratio] 39.58 kg/m2 39.58 kg/m2 W1 ([facility]) Heart rate 76 /min 76 /min W1 ([facility]) Body temperature 97.6 [degF] 97.6 [degF] eCW1 ( [facility]) Systolic blood pressure 124 mm[Hg] 124 mm[Hg] e CW1 ([facility]) Diastolic blood pressure 74 mm[Hg] 74 mm[Hg] eCW1 ([facility]) Body weight 226 [lb_av] 226 [lb_av] eCW1 ([facility]) Body height [in_i] eCW1 ([facility]) Body mass index (BMI) [Ratio] 39.40 kg/m2 39.40 kg/m2 eCW1 ([facility]) Heart rate 78 /min 78 /min eCW1 ([facility]) Respiratory rate 20 /min 20 /min eCW1 ([facility]) Body temperature 98 [degF] 98 [degF] eCW1 ([facility]) Systolic blood pressure 122 mm[Hg] 122 mm[Hg] e CW1 ([facility]) Diastolic blood pressure 80 mm[Hg] 80 mm[Hg] eCW1 ([facility]) Diastolic blood pressure 80 mm[Hg] 80 mm[Hg] [facility] ([facility], ) Heart rate 79 /min 79 /min [facility] ([facility], ) Oxygen saturation in Arterial blood by Pulse oximetry 99 % 99 % [facility] ([facility], ) Room Air Body height 64 [in_i] 64 [in_i] [facility] ([facility], ) 5'4" Systolic blood pressure 124 mm[Hg] 124 mm[Hg] M [facility] ([facility], ) [place] body weight 120 [lb_av] 120 [lb_av] MED[facility] T ([facility], ) Body height 0.00 in Normal (applies to non-numeric resu lts) 0.00 in [facility] ([facility]) Body weight Measured 0.00 lbs Normal (applies to n on-numeric results) 0.00 lbs [facility] ([facility]) Body mass index (BMI) [Ratio] 0.00 kg/m2 No rmal (applies to non-numeric results) 0.00 kg/m2 [facility] ([facility]) Systolic blood pressure 0 mm[Hg] Normal (applies t o non-numeric results) 0 mm[Hg] [facility] ([facility]) Diastolic blood pressure 0 mm[Hg] Normal (applies to non-numeric results) 0 mm[Hg] [facility] ([facility]) Body weight 229 [lb_av] 229 [lb_av] eCW1 ([facility]) Body height [in_i] eCW1 ([facility]) Body mass index (BMI) [Ratio] 39.92 kg/m2 39.92 kg/m2 eCW1 ([facility]) Heart rate 80 /min 80 /min eCW1 ([facility]) Respiratory rate 18 /min 18 /min eCW1 ([facility]) Body temperature 97.6 [degF] 97.6 [degF] eCW1 ( [facility]) Systolic blood pressure 126 mm[Hg] 126 mm[Hg] e CW1 ([facility]) Diastolic blood pressure 80 mm[Hg] 80 mm[Hg] eCW1 ([facility]) Body height 63 [in_i] 63 [in_i] [facility] ([facility]) 5'3" Body temperature 97.7 [degF] 97.7 [degF] [facility] ([facility]) Body weight 225.38 [lb_av] 225.38 [lb_av] MED[facility] T ([facility]) Body mass index (BMI) [Ratio] 39.9 kg/m2 39.9 k g/m2 [facility] ([facility]) Body temperature 96.0 [degF] 96.0 [degF] [facility] ([facility]) Body height 0.00 in Normal (applies to non-numeric resu lts) 0.00 in [facility] ([facility]) Body weight Measured 0.00 lbs Normal (applies to n on-numeric results) 0.00 lbs [facility] ([facility]) Body mass index (BMI) [Ratio] 0.00 kg/m2 No rmal (applies to non-numeric results) 0.00 kg/m2 [facility] ([facility]) Systolic blood pressure 0 mm[Hg] Normal (applies t o non-numeric results) 0 mm[Hg] [facility] ([facility]) Diastolic blood pressure 0 mm[Hg] Normal (applies to non-numeric results) 0 mm[Hg] [facility] ([facility]) Body height 0.00 in Normal (applies to non-numeric resu lts) 0.00 in [facility] ([facility]) Body weight Measured 0.00 lbs Normal (applies to n on-numeric results) 0.00 lbs [facility] ([facility]) Body mass index (BMI) [Ratio] 0.00 kg/m2 No rmal (applies to non-numeric results) 0.00 kg/m2 [facility] ([facility]) Systolic blood pressure 0 mm[Hg] Normal (applies t o non-numeric results) 0 mm[Hg] [facility] ([facility]) Diastolic blood pressure 0 mm[Hg] Normal (applies to non-numeric results) 0 mm[Hg] [facility] ([facility]) Body height 64 [in_i] 64 [in_i] [facility] ([facility], ) 5'4" Body weight 242.00 [lb_av] 242.00 [lb_av] MEDEN [facility] ([facility], ) Body mass index (BMI) [Ratio] 41.5 kg/m2 41.5 k g/m2 [facility] ([facility]) Body weight 109.771 kg 109.771 kg [facility] ([facility]) Body surface area Derived from formula 2.12 m2 2.12 m2 [facility] ([facility]) [place] body weight 120 [lb_av] 120 [lb_av] MED[facility] ([facility]) Body weight 240 [lb_av] 240 [lb_av] eCW1 ([facility]) Body height [in_i] eCW1 ([facility]) Body mass index (BMI) [Ratio] 41.84 kg/m2 41.84 kg/m2 eCW1 ([facility]) Heart rate 90 /min 90 /min W1 ([facility]) Respiratory rate 20 /min 20 /min eCW1 ([facility]) Body temperature 98.2 [degF] 98.2 [degF] eCW1 ( [facility]) Systolic blood pressure 128 mm[Hg] 128 mm[Hg] e CW1 ([facility]) Diastolic blood pressure 76 mm[Hg] 76 mm[Hg] eCW1 ([facility]) Body weight 239.4 [lb_av] 239.4 [lb_av] eCW1 ([facility]) Body height [in_i] eCW1 ([facility]) Body mass index (BMI) [Ratio] 41.74 kg/m2 41.74 kg/m2 eCW1 ([facility]) Systolic blood pressure 130 mm[Hg] 130 mm[Hg] e CW1 ([facility]) Diastolic blood pressure 79 mm[Hg] 79 mm[Hg] eCW1 ([facility]) Body weight 241 [lb_av] 241 [lb_av] eCW1 ([facility]) Body height [in_i] eCW1 ([facility]) Body mass index (BMI) [Ratio] 42.02 kg/m2 42.02 kg/m2 eCW1 ([facility]) Systolic blood pressure 124 mm[Hg] 124 mm[Hg] e CW1 ([facility]) Diastolic blood pressure 70 mm[Hg] 70 mm[Hg] eCW1 ([facility]) Body height 0.00 in Normal (applies to non-numeric resu lts) 0.00 in [facility] ([facility]) Body weight Measured 0.00 lbs Normal (applies to n on-numeric results) 0.00 lbs [facility] ([facility]) Body mass index (BMI) [Ratio] 0.00 kg/m2 No rmal (applies to non-numeric results) 0.00 kg/m2 [facility] ([facility]) Systolic blood pressure 0 mm[Hg] Normal (applies t o non-numeric results) 0 mm[Hg] [facility] ([facility]) Diastolic blood pressure 0 mm[Hg] Normal (applies to non-numeric results) 0 mm[Hg] [facility] ([facility]) ID Date Data Source [id number] 06/10/2020 09:13:13 AM [facility] Name Value Range Interpretation Code Description Data Source(s) WEIGHT RECORDED 251 lb 251 lb [facility] Body height Measured 64.02 in 64.02 in [facility] Patient Treatment Plan of Care Planned Activity Planned Date Details Description Data Source (s) Triamcinolone Acetonide 0.001 MG/MG Topical Ointment 12:00:00 AM EDT eCW1 ([facility]) Fluocinonide 0.5 MG/ML Topical Solution 06/03/2021 12:00:00 AM EDT eCW1 ([facility]) Triamcinolone Acetonide 0.001 MG/MG Topical Ointment 12:00:00 AM EDT eCW1 ([facility]) Fluocinonide 0.5 MG/ML Topical Solution 06/03/2021 12:00:00 AM EDT eCW1 ([facility]) Triamcinolone Acetonide 0.001 MG/MG Topical Ointment 12:00:00 AM EDT eCW1 ([facility]) Fluocinonide 0.5 MG/ML Topical Solution 06/03/2021 12:00:00 AM EDT eCW1 ([facility]) Triamcinolone Acetonide 0.001 MG/MG Topical Ointment 12:00:00 AM EDT eCW1 ([facility]) Fluocinonide 0.5 MG/ML Topical Solution 06/03/2021 12:00:00 AM EDT eCW1 ([facility]) Triamcinolone Acetonide 0.001 MG/MG Topical Ointment 12:00:00 AM EDT eCW1 ([facility]) Fluocinonide 0.5 MG/ML Topical Solution 06/03/2021 12:00:00 AM EDT eCW1 ([facility]) Triamcinolone Acetonide 0.001 MG/MG Topical Ointment 12:00:00 AM EDT eCW1 ([facility]) Fluocinonide 0.5 MG/ML Topical Solution 06/03/2021 12:00:00 AM EDT eCW1 ([facility]) Amlodipine 5 MG Oral Tablet 05/17/2021 12:00:00 AM EDT eCW1 ([facility]) Amlodipine 5 MG Oral Tablet 05/17/2021 12:00:00 AM EDT eCW1 ([facility]) Amlodipine 5 MG Oral Tablet 05/17/2021 12:00:00 AM EDT eCW1 ([facility]) Lidocaine Hydrochloride 20 MG/ML Mucous Membrane Topic al Solution 04/26/2021 12:00:00 AM EDT eCW1 ([facility]) Lidocaine Hydrochloride 20 MG/ML Mucous Membrane Topic al Solution 04/26/2021 12:00:00 AM EDT eCW1 ([facility]) Lidocaine Hydrochloride 20 MG/ML Mucous Membrane Topic al Solution 04/26/2021 12:00:00 AM EDT eCW1 ([facility]) Hydroxychloroquine Sulfate 200 MG Oral Tablet 02/18/2021 12:00:00 [facility] retapamulin 0.01 MG/MG Topical Ointment [Altabax] 10/08/2020 12: 00:00 AM EST eCW1 ([facility]) Fluconazole 100 MG Oral Tablet [Diflucan] 10/08/2020 12:00:00 AM ES T eCW1 ([facility]) retapamulin 0.01 MG/MG Topical Ointment [Altabax] 10/08/2020 12: 00:00 AM EST eCW1 ([facility]) Fluconazole 100 MG Oral Tablet [Diflucan] 10/08/2020 12:00:00 AM ES T eCW1 ([facility]) retapamulin 0.01 MG/MG Topical Ointment [Altabax] 10/08/2020 12: 00:00 AM EST eCW1 ([facility]) Fluconazole 100 MG Oral Tablet [Diflucan] 10/08/2020 12:00:00 AM ES T eCW1 ([facility]) retapamulin 0.01 MG/MG Topical Ointment [Altabax] 10/08/2020 12: 00:00 AM EST eCW1 ([facility]) Fluconazole 100 MG Oral Tablet [Diflucan] 10/08/2020 12:00:00 AM ES T eCW1 ([facility]) retapamulin 0.01 MG/MG Topical Ointment [Altabax] 10/08/2020 12: 00:00 AM EST eCW1 ([facility]) retapamulin 0.01 MG/MG Topical Ointment [Altabax] 10/08/2020 12: 00:00 AM EST eCW1 ([facility]) Fluconazole 100 MG Oral Tablet [Diflucan] 10/08/2020 12:00:00 AM ES T eCW1 ([facility]) retapamulin 0.01 MG/MG Topical Ointment [Altabax] 10/08/2020 12: 00:00 AM EST eCW1 ([facility]) Fluconazole 100 MG Oral Tablet [Diflucan] 10/08/2020 12:00:00 AM ES T eCW1 ([facility]) Fluconazole 100 MG Oral Tablet [Diflucan] 10/08/2020 12:00:00 AM ES T eCW1 ([facility]) retapamulin 0.01 MG/MG Topical Ointment [Altabax] 10/08/2020 12: 00:00 AM EST eCW1 ([facility]) Fluconazole 100 MG Oral Tablet [Diflucan] 10/08/2020 12:00:00 AM ES T eCW1 ([facility]) retapamulin 0.01 MG/MG Topical Ointment [Altabax] 10/08/2020 12: 00:00 AM EST eCW1 ([facility]) Fluconazole 100 MG Oral Tablet [Diflucan] 10/08/2020 12:00:00 AM ES T eCW1 ([facility]) retapamulin 0.01 MG/MG Topical Ointment [Altabax] 10/08/2020 12: 00:00 AM EST eCW1 ([facility]) Fluconazole 100 MG Oral Tablet [Diflucan] 10/08/2020 12:00:00 AM ES T eCW1 ([facility]) retapamulin 0.01 MG/MG Topical Ointment [Altabax] 10/08/2020 12: 00:00 AM EST eCW1 ([facility]) Fluconazole 100 MG Oral Tablet [Diflucan] 10/08/2020 12:00:00 AM ES T eCW1 ([facility]) Fluconazole 100 MG Oral Tablet [Diflucan] 10/08/2020 12:00:00 AM ES T eCW1 ([facility]) retapamulin 0.01 MG/MG Topical Ointment [Altabax] 10/08/2020 12: 00:00 AM EST eCW1 ([facility]) retapamulin 0.01 MG/MG Topical Ointment [Altabax] 10/08/2020 12: 00:00 AM EST eCW1 ([facility]) Fluconazole 100 MG Oral Tablet [Diflucan] 10/08/2020 12:00:00 AM ES T eCW1 ([facility]) retapamulin 0.01 MG/MG Topical Ointment [Altabax] 10/08/2020 12: 00:00 AM EST eCW1 ([facility]) Fluconazole 100 MG Oral Tablet [Diflucan] 10/08/2020 12:00:00 AM ES T eCW1 ([facility]) retapamulin 0.01 MG/MG Topical Ointment [Altabax] 10/08/2020 12: 00:00 AM EST eCW1 ([facility]) Fluconazole 100 MG Oral Tablet [Diflucan] 10/08/2020 12:00:00 AM ES T eCW1 ([facility]) retapamulin 0.01 MG/MG Topical Ointment [Altabax] 10/08/2020 12: 00:00 AM EST eCW1 ([facility]) Fluconazole 100 MG Oral Tablet [Diflucan] 10/08/2020 12:00:00 AM ES T eCW1 ([facility]) retapamulin 0.01 MG/MG Topical Ointment [Altabax] 10/08/2020 12: 00:00 AM EST eCW1 ([facility]) Fluconazole 100 MG Oral Tablet [Diflucan] 10/08/2020 12:00:00 AM ES T eCW1 ([facility]) retapamulin 0.01 MG/MG Topical Ointment [Altabax] 10/08/2020 12: 00:00 AM EST eCW1 ([facility]) Fluconazole 100 MG Oral Tablet [Diflucan] 10/08/2020 12:00:00 AM ES T eCW1 ([facility]) [place] 1 07/13/2020 12:00:00 AM EST eCW1 ([facility]) Rolling Walker 1 07/13/2020 12:00:00 AM EST eCW1 ([facility]) Rolling Walker 1 07/13/2020 12:00:00 AM EST eCW1 ([facility]) Rolling Walker 1 07/13/2020 12:00:00 AM EST eCW1 ([facility]) Rolling Walker 1 07/13/2020 12:00:00 AM EST eCW1 ([facility]) Rolling Walker 1 07/13/2020 12:00:00 AM EST eCW1 ([facility]) Hydroxychloroquine Sulfate 200 MG Oral Tablet 06/02/2020 12:00:00 A [facility] Hydroxychloroquine Sulfate 200 MG Oral Tablet 03/26/2020 12:00:00 A [facility]
[2021-06-18] MEDS ORDERED: OLANZapine INTRAMUSCULAR 10MG VIAL IM ONE (07:40)
[2021-06-18] MEDS ORDERED: LORazepam 2 MG/ML VIAL IM ONE (07:40)
[2021-06-18 07:56] LABS: HEMATOCRIT 45.7 % (36.0-47.0); HEMOGLOBIN 14.2 g/dl (12.0-15.5); MEAN CORPUSCULAR HEMOGLOBIN 28.9 pg (27.0-33.0); MEAN CORPUSCULAR HGB CONC 31.1 g/dl (32.0-36.5); MEAN CORPUSCULAR VOLUME 92.9 fl (80.0-96.0); PLATELET COUNT, AUTOMATED 257 10^3/uL (150-450); RED BLOOD COUNT 4.92 10^6/uL (4.00-5.40); WHITE BLOOD COUNT 8.3 10^3/uL (4.0-10.0)
[2021-06-18 08:30] LABS: BLOOD UREA NITROGEN 20 MG/DL (7-18); CALCIUM LEVEL 9.9 MG/DL (8.8-10.2); CARBON DIOXIDE LEVEL 26 MEQ/L (21-32); CHLORIDE LEVEL 108 MEQ/L (98-107); CREATININE FOR GFR 0.91 MG/DL (0.55-1.30); GLOMERULAR FILTRATION RATE > 60.0 (>45); GLUCOSE, FASTING 116 MG/DL (70-100); SODIUM LEVEL 141 MEQ/L (136-145)
[2021-06-18 08:31] LABS: ACETAMINOPHEN LEVEL < 2.0 UG/ML (10.0-30.0); ALBUMIN 4.4 GM/DL (3.2-5.2); ALT/SGPT 34 U/L (12-78); BILIRUBIN,DIRECT 0.1 MG/DL (0.0-0.2); BILIRUBIN,TOTAL 0.5 MG/DL (0.2-1.0); ETHYL ALCOHOL (ETHANOL) 0.003 % (0.000-0.010); LITHIUM LEVEL 0.75 MEQ/L (0.60-1.20); SALICYLATE LEVEL < 1.7 MG/DL (5.0-30.0); TOTAL PROTEIN 8.1 GM/DL (6.4-8.2)
[2021-06-18 08:47] LABS: AMPHETAMINES LEVEL URINE NEGATIVE (NEGATIVE); BARBITURATES URINE NEGATIVE (NEGATIVE); BENZODIAZEPINES URINE NEGATIVE (NEGATIVE); CANNABINOIDS URINE NEGATIVE (NEGATIVE); COCAINE METABOLITE URINE NEGATIVE (NEGATIVE); METHADONE URINE NEGATIVE (NEGATIVE); OPIATES URINE NEGATIVE (NEGATIVE); PHENCYCLIDINE URINE NEGATIVE (NEGATIVE)
--- OUTSIDE RECORDS SUMMARY | 2021-06-18 09:51 | CCD ---
Author Author [facility] Organization [facility] Address Unknown Phone Unavailable Care Team Providers Care Furniture Designer Name Role Phone Estee, L Patsy HOT WALKER Unavailable Unavailable Estee, L Patsy HOT WALKER Unavailable Unavailable Estee, L Patsy HOT WALKER Unavailable Unavailable Estee, L Patsy HOT WALKER Unavailable Unavailable Estee, L Patsy HOT WALKER Unavailable Unavailable Estee, L Patsy HOT WALKER Unavailable Unavailable Estee, L Patsy HOT WALKER Unavailable Unavailable Estee, L Patsy HOT WALKER Unavailable Unavailable Estee, L Patsy HOT WALKER Unavailable Unavailable Estee, L Patsy HOT WALKER Unavailable Unavailable Estee, L Patsy HOT WALKER Unavailable Unavailable Estee, L Patsy HOT WALKER Unavailable Unavailable Estee, L Patsy HOT WALKER Unavailable Unavailable Estee, L Patsy HOT WALKER Unavailable Unavailable Estee, L Patsy HOT WALKER Unavailable Unavailable Estee, L Patsy HOT WALKER Unavailable Unavailable Estee, L Patsy HOT WALKER Unavailable Unavailable Estee, L Patsy HOT WALKER Unavailable Unavailable Estee, L Patsy HOT WALKER Unavailable Unavailable Estee, L Patsy HOT WALKER Unavailable Unavailable Estee, L Patsy HOT WALKER Unavailable Unavailable Estee, L Patsy HOT WALKER Unavailable Unavailable Estee, L Patsy HOT WALKER Unavailable Unavailable Estee, L Patsy HOT WALKER Unavailable Unavailable Estee, L Patsy HOT WALKER Unavailable Unavailable Paul B Carlos LEMONS Unavailable [...] Carlos LEMONS Unavailable Unavailable Fish, Frances Madriden [facility], PA-C Unavailable Unavailabl e Fish, Frances Don [facility], PA-C Unavailable Unavailabl e Fish, Frances Don [facility], PA-C Unavailable Unavailabl e Fish, Francesanish Don [facility], PA-C Unavailable Unavailabl e Fish, Frances Florencia [facility], PA-C Unavailable Unavailabl e Fish, [facility], PA-C Unavailable Unavailabl e Fish, [facility], PA-C Unavailable Unavailabl e Fish, [facility], PA-C Unavailable Unavailabl e Fish, [facility], PA-C Unavailable Unavailabl e Fish, [facility], PA-C Unavailable Unavailabl e Fish, [facility], PA-C Unavailable Unavailabl e Fish, [facility], PA-C Unavailable Unavailabl e Fish, [facility], PA-C Unavailable Unavailabl e Fish, [facility], PA-C Unavailable Unavailabl e Fish, [facility], PA-C Unavailable Unavailabl e Fish, [facility], PA-C Unavailable Unavailabl e Fish, [facility], PA-C Unavailable Unavailabl e Fish, [facility], PA-C Unavailable Unavailabl e Fish, [facility], PA-C Unavailable Unavailabl e Fish, [facility], PA-C Unavailable Unavailabl e Fish, [facility], PA-C Unavailable Unavailabl e Fish, [facility], PA-C Unavailable Unavailabl e Fish, [facility], PA-C Unavailable Unavailabl e Fish, [facility], PA-C Unavailable Unavailabl e Fish, [facility], PA-C Unavailable Unavailabl e Fish, [facility], PA-C Unavailable Unavailabl e Fish, [facility], PA-C Unavailable Unavailabl e Fish, [facility], PA-C Unavailable Unavailabl e Fish, [facility], PA-C Unavailable Unavailabl e Fish, [facility], PA-C Unavailable Unavailabl e Fish, [facility], PA-C Unavailable Unavailabl e Fish, [facility], PA-C Unavailable Unavailabl e Fish, [facility], PA-C Unavailable Unavailabl e Fish, [facility], PA-C Unavailable Unavailabl e Fish, [facility], PA-C Unavailable Unavailabl e Fish, [facility], PA-C Unavailable Unavailabl e Dille, E Kasandra DDS Unavailable Unavailable Dille, E Kasandra DDS Unavailable Unavailable Dille, E Kasandra DDS Unavailable Unavailable Dille, E Kasandra DDS Unavailable Unavailable MACQUEEN, KEMI HOT WALKER Unavailable Unavailable MACQUEEN, KEIM HOT WALKER Unavailable Unavailable MACQUEEN, KEMI HOT WALKER Unavailable Unavailable MACQUEEN, KEMI HOT WALKER Unavailable Unavailable MACQUEEN, KEMI HOT WALKER Unavailable Unavailable MACQUEEN, KEMI HOT WALKER Unavailable Unavailable MACQUEEN, KEMI HOT WALKER Unavailable Unavailable MACQUEEN, KEMI HOT WALKER Unavailable Unavailable MACQUEEN, KEMI HOT WALKER Unavailable Unavailable MACQUEEN, KEMI HOT WALKER Unavailable Unavailable BRYSON, P CAIO MD Unavailable [...] Unavailable Goutremout, Elizabeth Unavailable Servage, L Zaina HOT WALKER Unavailable Unavailable Servage, L Zaina HOT WALKER Unavailable Unavailable Servage, L Zaina HOT WALKER Unavailable Unavailable Servage, L Zaina HOT WALKER Unavailable Unavailable Servage, L Zaina HOT WALKER Unavailable Unavailable Servage, L Zaina HOT WALKER Unavailable Unavailable Servage, L Zaina HOT WALKER Unavailable Unavailable Servage, L Zaina HOT WALKER Unavailable Unavailable Servage, L Zaina HOT WALKER Unavailable Unavailable Servage, L Zaina HOT WALKER Unavailable Unavailable Servage, L Zaina HOT WALKER Unavailable Unavailable Servage, L Zaina HOT WALKER Unavailable Unavailable Servage, L Zaina HOT WALKER Unavailable Unavailable Servage, L Zaina HOT WALKER Unavailable Unavailable Servage, L Zaina HOT WALKER Unavailable Unavailable Servage, L Zaina HOT WALKER Unavailable Unavailable Servage, L Zaina HOT WALKER Unavailable Unavailable Servage, L Zaina HOT WALKER Unavailable Unavailable Servage, L Zaina HOT WALKER Unavailable Unavailable Servage, L Zaina HOT WALKER Unavailable Unavailable Servage, L Zaina HOT WALKER Unavailable Unavailable Servage, L Zaina HOT WALKER Unavailable Unavailable Servage, L Zaina HOT WALKER Unavailable Unavailable Servage, L Zaina HOT WALKER Unavailable Unavailable Servage, L Zaina HOT WALKER Unavailable Unavailable Servage, L Zaina HOT WALKER Unavailable Unavailable Servage, L Zaina HOT WALKER Unavailable Unavailable Servage, L Zaina HOT WALKER Unavailable Unavailable Servage, L Zaina HOT WALKER Unavailable Unavailable Servage, L Zaina HOT WALKER Unavailable Unavailable Servage, L Zaina HOT WALKER Unavailable Unavailable Servage, L Zaina HOT WALKER Unavailable Unavailable Servage, L Zaina HOT WALKER Unavailable Unavailable Servage, L Zaina HOT WALKER Unavailable Unavailable Servage, L Zaina HOT WALKER Unavailable Unavailable Servage, L Zaina HOT WALKER Unavailable Unavailable Servage, L Zaina HOT WALKER Unavailable Unavailable Servage, L Zaina HOT WALKER Unavailable Unavailable Servage, L Zaina HOT WALKER Unavailable Unavailable Servage, L Zaina HOT WALKER Unavailable Unavailable Servage, L Zaina HOT WALKER Unavailable Unavailable Servage, L Zaina HOT WALKER Unavailable Unavailable Servage, L Zaina HOT WALKER Unavailable Unavailable Servage, L Zaina HOT WALKER Unavailable Unavailable Servage, L Zaina HOT WALKER Unavailable Unavailable Servage, L Zaina HOT WALKER Unavailable Unavailable Servage, L Zaina HOT WALKER Unavailable Unavailable Servage, L Zaina HOT WALKER Unavailable Unavailable Servage, L Zaina HOT WALKER Unavailable Unavailable Servage, L Zaina HOT WALKER Unavailable Unavailable Servage, L Zaina HOT WALKER Unavailable Unavailable Servage, L Zaina HOT WALKER Unavailable Unavailable Servage, L Zaina HOT WALKER Unavailable Unavailable Servage, L Zaina HOT WALKER Unavailable Unavailable Servage, L Zaina HOT WALKER Unavailable Unavailable Servage, L Zaina HOT WALKER Unavailable Unavailable Servage, L Zaina HOT WALKER Unavailable Unavailable Servage, L Zaina HOT WALKER Unavailable Unavailable Servage, L Zaina HOT WALKER Unavailable Unavailable Servage, L Zaina HOT WALKER Unavailable Unavailable Servage, L Zaina HOT WALKER Unavailable Unavailable Servage, L Zaina HOT WALKER Unavailable Unavailable Servage, L Zaina HOT WALKER Unavailable Unavailable Servage, L Zaina HOT WALKER Unavailable Unavailable Servage, L Zaina HOT WALKER Unavailable Unavailable Re-disclosure Warning The records that [...] is protected by Article 27-F of the [facility] Public Health law. If you continue you may have access to information: Regarding HIV / AIDS; Provided by facilities licensed or operated by the [facility] Office of Mental Health; or Provided by the [facility] Office for People With Developmental Disabilities. If such information is present, then the following [facility] mandated warning applies: This information has been [...] law may result in a fine or senior care sentence or both. A general authorization for [...] Attender: CAIO MASSEY MD 09/06/2021 12:00:00 AM [facility] Outpatient Attender: KEMI GREY NP [facility] savanna 06/16/2021 11:30:00 AM EDT - 06/16/2021 11:30:00 AM EDT [facility] ([facility]) Unknown [address] [facility] [address] 06/16/2021 12:00:00 AM EDT [facility]CW1 [facility] [address] [facility] [place] [address] 06/16/2021 12:00:00 AM EDT [facility]CW1 [facility] Attender: KEMI GREY NP 06/16/2021 12:00:00 AM EDT [facility] ([facility]) Unknown [address] [facility] [address] 06/15/2021 12:00:00 AM EDT eCW1 ([facility]) Extended Individual Psychotherapy - 45 min Attender: [facility] 06/11/2021 12:45:00 PM EDT - 06/11/2021 12:45:00 PM EDT [facility] ([facility]) Attender: Elizabeth Ghosh 06/11/2021 12:00:0 0 AM EDT [facility] ([facility]) Unknown [address] [facility] [address] 06/07/2021 12:00:00 AM EDT eCW1 ([facility] Unknown [address] [facility] [address] 06/03/2021 12:00:00 AM EDT eCW1 ([facility] Unknown [address] [facility] [address] 05/31/2021 12:00:00 AM EDT [facility]CW1 ([facility]) [place] [address] [facility] [address] 05/25/2021 12:00:00 AM EDT eCW1 ([facility]) Extended Individual Psychotherapy - 45 min Attender: Michelle Ghosh [facility] [place] 05/20/2021 02:30:00 AM EDT - 05/20/2021 02:30:00 AM EDT [facility] ([facility]) Attender: Elizabeth Ghosh 05/20/2021 12:00:0 0 AM EDT [facility] ([facility]) Unknown [address] [facility] [address] 05/17/2021 12:00:00 AM EDT eCW1 ([facility]) Unknown [address] [facility] [address] 05/17/2021 12:00:00 AM EDT eCW1 ([facility]) Unknown [address] [facility] [address] 05/11/2021 12:00:00 AM EDT eCW1 ([facility]) Attender: KEMI GREY NP 04/29/2021 12:00:00 AM EDT [facility] ([facility]) Outpatient Attender: KEMI GREY NP [facility] Joe corrales 04/28/2021 10:30:00 AM EDT - 04/28/2021 10:30:00 AM EDT [facility] ([facility]) Office Visit, Est Pt., Level 3 PC [address] [place] [address] 04/26/2021 12:00:00 AM EDT eCW1 ([facility]) Unknown [address] [facility] [address] 04/16/2021 12:00:00 AM EDT eCW1 ([facility]) Outpatient Attender: KEMI GREY NP [facility] savanna 04/14/2021 10:30:00 AM EDT - 04/14/2021 10:30:00 AM EDT [facility] ([facility]) Attender: KEMI GREY NP 04/14/2021 12:00:00 AM EDT [facility] ([facility]) Unknown [address] [facility] [address] 04/14/2021 12:00:00 AM EDT eCW1 ([facility]) Extended Individual Psychotherapy - 45 min Attender: Michelle [facility] 03/26/2021 01:00:00 AM EDT - 03/26/2021 01:00:00 AM EDT [facility] ([facility]) Attender: Elizabeth Ghosh 03/26/2021 12:00:0 0 AM EDT [facility] ([facility]) Unknown [address] [facility] [address] 03/18/2021 12:00:00 AM EDT eCW1 ([facility]) Office Visit, Est Pt., Level 2 FC [address] [place] [address] 03/10/2021 12:00:00 AM EDT eCW1 ([facility]) Outpatient Attender: CAIO MASSEY MD [id number] 12:00:00 AM EDT - 03/22/2021 10:36:27 AM T [facility] Unknown [address] [facility] [address] 03/05/2021 12:00:00 AM EDT eCW1 ([facility]) Outpatient Attender: Patsy Grayson/Ramón/Benton/Millie 03/03/2021 11:00:00 AM EDT [facility] ([facility]) Unknown [address] [facility] [address] 01/06/2021 12:00:00 AM EDT eCW1 ([facility]) Office Visit Attender: Florencia HARRISON PA-C Physical Therapy 12/30/2020 09:15:00 AM EDT [facility] ([facility]) Unknown [address] [facility] [address] 12/28/2020 12:00:00 AM EDT eCW1 ([facility]) Outpatient Attender: KEMI GREY NP [facility] [place] 12/23/2020 11:30:00 AM EDT - 12/23/2020 11:30:00 AM EDT [facility] ([facility]) Attender: KEMI GREY NP 12/23/2020 12:00:00 AM EDT [facility] ([facility]) Extended Individual Psychotherapy - 45 min Attender: Michelle [facility] 12/21/2020 02:00:00 AM EDT - 12/21/2020 02:00:00 AM EDT [facility] ([facility]) Attender: Elizabeth Ghosh 12/21/2020 12:00:0 0 AM EDT [facility] ([facility]) Office Visit Attender: Florencia HARRISON PA-C Physical Therapy 12/18/2020 01:00:00 PM EDT [facility] ([facility]) Outpatient Attender: Carlos Miller MD Physical Therapy 12/14/2020 0 1:45:00 PM EDT [facility] ([facility]) Unknown [address] [facility] [address] 12/08/2020 12:00:00 AM EDT eCW1 ([facility] Unknown [address] [facility] [address] 12/07/2020 12:00:00 AM EDT eCW1 ([facility] [place]) Unknown [address] [facility] [address] 12/04/2020 12:00:00 AM EDT eCW1 ([facility] [place]) Outpatient Attender: CAIO MASSEY MDReferrer: Zaina Hernández NP [id number] 11/30/2020 12:00:00 AM EDT - 11/30/2020 02:32:53 PM [facility] Extended Individual Psychotherapy - 45 min Attender: Michelle Ghosh [facility] 11/27/2020 02:30:00 AM EDT - 11/27/2020 02:30:00 AM EDT [facility] ([facility]) Attender: Elizabeth Davina 11/27/2020 12:00:0 0 AM EDT [facility] ([facility]) Extended Individual Psychotherapy - 45 min Attender: Michelle Ghosh [facility] 11/10/2020 02:00:00 AM EDT - 11/10/2020 02:00:00 AM EDT [facility] ([facility]) Unknown [address] [facility] [address] 11/10/2020 12:00:00 AM EDT eCW1 ([facility]) Attender: Elizabethsergio Ghosh 11/10/2020 12:00:0 0 AM EDT [facility] ([facility]) Unknown [address] [facility] [address] 11/09/2020 12:00:00 AM EDT eCW1 ([facility]) Unknown [address] [facility] [address] 11/09/2020 12:00:00 AM EDT eCW1 ([facility]) Unknown [address] [facility] [address] 11/04/2020 12:00:00 AM EST [facility]CW1 [facility]) [id number]"Psychotherapy Attender: [facility] 10/23/2020 01:00:00 AM EST - 10/23/2020 01:00:00 AM EST [facility] ([facility]) Attender: Elizabeth Ghosh 10/23/2020 12:00:0 0 AM EST [facility] ([facility]) Unknown [address] [facility] [address] 10/19/2020 12:00:00 AM EST eCW1 ([facility]) Unknown [address] [facility] [place] [address] 10/14/2020 12:00:00 AM EST eCW1 ([facility]) Unknown [address] [facility] [place] [address] 10/12/2020 12:00:00 AM EST eCW1 ([facility]) Unknown [address] [facility] [place] [address] 10/09/2020 12:00:00 AM EST eCW1 ([facility]) Unknown [address] [facility] [place] [address] 10/09/2020 12:00:00 AM EST eCW1 ([facility]) Office Visit, Est Pt., Level 4 PC [address] [place] [address] 10/08/2020 12:00:00 AM EST eCW1 ([facility]) Extended Individual Psychotherapy - 45 min Attender: [facility] 10/05/2020 03:45:00 AM EST - 10/05/2020 03:45:00 AM EST [facility] ([facility]) Attender: Elizabeth Ghosh 10/05/2020 12:00:0 0 AM EST [facility] ([facility]) Unknown [address] [facility] [address] 09/29/2020 12:00:00 AM EST eCW1 ([facility]) Outpatient Attender: KEMI GREY NP [facility] 09/16/2020 11:00:00 AM EST - 09/16/2020 11:00:00 AM EST [facility] ([facility]) Unknown [address] [facility] [address] 09/16/2020 12:00:00 AM EST eCW1 ([facility]) Attender: KEMI GREY NP 09/16/2020 12:00:00 AM EST [facility] ([facility]) Unknown [address] [facility] [place] [address] 09/11/2020 12:00:00 AM EST eCW1 ([facility]) Unknown [address] [facility] [place] [address] 09/02/2020 12:00:00 AM EST eCW1 ([facility]) Extended Individual Psychotherapy - 45 min [facility] 08/27/2020 02:00:00 AM EST - 08/27/2020 02:00:00 AM EST [facility] ([facility]) Attender: Elizabeth Ghosh 08/27/2020 12:00:0 0 AM EST [facility] ([facility]) Unknown [address] [facility] [place] [address] 08/10/2020 12:00:00 AM EST eCW1 ([facility]) Extended Individual Psychotherapy - 45 min [facility]: [facility] 08/07/2020 01:00:00 AM EST - 08/07/2020 01:00:00 AM EST [facility] Att[facility]: Elizabeth Ghosh 08/07/2020 12:00:0 0 AM EST [facility] ([facility]) Outpatient Attender: KEMI GREY NP [facility] 08/05/2020 11:00:00 AM EST - 08/05/2020 11:00:00 AM EST [facility] ([facility]) Attender: KEMI GREY NP 08/05/2020 12:00:00 AM EST [facility] ([facility]) Unknown [address] [facility] [address] 07/20/2020 12:00:00 AM EST eCW1 ([facility]) Unknown [address] [facility] [place] [address] 07/08/2020 12:00:00 AM EST eCW1 ([facility] Unknown [address] [facility] [place] [address] 07/03/2020 12:00:00 AM EST eCW1 ([facility]) Unknown [address] [facility] [place] [address] 07/01/2020 12:00:00 AM EST eCW1 ([facility]) TEMPMHCTelemed 30" Psychotherapy Attender: [facility] 06/29/2020 01:50:00 AM EST - 06/29/2020 01:50:00 AM EST [facility] ([facility]) Attender: Elizabeth Ghosh 06/29/2020 12:00:0 0 AM EST [facility] ([facility]) Extended Individual Psychotherapy - 45 min Attender: [facility] 06/26/2020 01:00:00 AM EDT - 06/26/2020 01:00:00 AM EDT [facility] ([facility]) Attender: Elizabeth Ghosh 06/26/2020 12:00:0 0 AM EDT [facility] ([facility]) Unknown [address] [facility] [address] 06/23/2020 12:00:00 AM EDT eCW1 ([facility]) Outpatient [address] [facility] [place] [address] 06/16/2020 12:00:00 AM EDT eCW1 ([facility] Outpatient [address] [facility] [place] [address] 06/15/2020 12:00:00 AM EDT eCW1 [facility]) Extended Individual Psychotherapy - 45 min Attender: Michelle [facility] 06/09/2020 02:45:00 AM EDT - 06/09/2020 02:45:00 AM EDT [facility] ([facility]) Attender: Elizabeth Ghosh 06/09/2020 12:00:0 0 AM EDT [facility] (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) Attender: Elizabeth Ghosh 05/26/2020 12:00:0 0 AM EDT [facility] ([facility]) Outpatient Att[facility]: [facility] 05/21/2020 10:00:00 AM EDT - 05/21/2020 10:00:00 AM EDT [facility] ([facility]) Attender: KEMI GREY NP 05/21/2020 12:00:00 AM EDT [facility] ([facility]) Office Visit Attender: Florencia HARRISON PA-C Physical Therapy 05/14/2020 08:30:00 AM EDT [facility] ([facility]) Outpatient Attender: Kasandra GILES 05/14/2020 07:14:01 A M EDT [facility] Outpatient Attender: Kasandra GILES 05/13/2020 10:11:00 A M EDT [facility] Outpatient Attender: Kasandra GILES 05/13/2020 08:40:00 A M EDT [facility] Outpatient Attender: Kasandra GILES 05/12/2020 03:58:00 P M EDT [facility] Outpatient Attender: Kasandra GILES 05/12/2020 01:39:01 P M EDT [facility] Outpatient Attender: Kasandra Bull [facility] 05/12/2020 01:16:01 P M EDT [facility] 05/11/2020 03:47:01 P M EDT [facility] Office Visit Attender: Florencia Paul HARRISON PA-C Physical Therapy 05/07/2020 08:45:00 AM EDT [facility] ([facility]) Functional Status Immunizations Vaccine Date Status Description Data Source(s) influenza, recombinant, quadrIvalent,injectable, prese rvative free 06/16/2020 03:29:00 PM EDT completed eCW1 ([facility]) influenza, recombinant, quadrIvalent,injectable, prese rvative free 06/16/2020 03:29:00 PM EDT completed eCW1 ([facility]) influenza, recombinant, quadrIvalent,injectable, prese rvative free 06/16/2020 03:29:00 PM EDT completed eCW1 ([facility]) influenza, recombinant, quadrIvalent,injectable, prese rvative free 06/16/2020 03:29:00 PM EDT completed eCW1 ([facility]) influenza, recombinant, quadrIvalent,injectable, prese rvative free 06/16/2020 03:29:00 PM EDT completed eCW1 ([facility]) influenza, recombinant, quadrIvalent,injectable, prese rvative free 06/16/2020 03:29:00 PM EDT completed eCW1 ([facility]) influenza, recombinant, quadrIvalent,injectable, prese rvative free 06/16/2020 03:29:00 PM EDT completed eCW1 ([facility]) influenza, recombinant, quadrIvalent,injectable, prese rvative free 06/16/2020 03:29:00 PM EDT completed eCW1 ([facility]) influenza, recombinant, quadrIvalent,injectable, prese rvative free 06/16/2020 03:29:00 PM EDT completed eCW1 ([facility]) influenza, recombinant, quadrIvalent,injectable, prese rvative free 06/16/2020 03:29:00 PM EDT completed eCW1 ([facility]) influenza, recombinant, quadrIvalent,injectable, prese rvative free 06/16/2020 03:29:00 PM EDT completed eCW1 ([facility]) influenza, recombinant, quadrIvalent,injectable, prese rvative free 06/16/2020 03:29:00 PM EDT completed eCW1 ([facility]) influenza, recombinant, quadrIvalent,injectable, prese rvative free 06/16/2020 03:29:00 PM EDT completed eCW1 ([facility]) influenza, recombinant, quadrIvalent,injectable, prese rvative free 06/16/2020 03:29:00 PM EDT completed eCW1 ([facility]) influenza, recombinant, quadrIvalent,injectable, prese rvative free 06/16/2020 03:29:00 PM EDT completed eCW1 ([facility]) influenza, recombinant, quadrIvalent,injectable, prese rvative free 06/16/2020 03:29:00 PM EDT completed eCW1 ([facility]) influenza, recombinant, quadrIvalent,injectable, prese rvative free 06/16/2020 03:29:00 PM EDT completed eCW1 ([facility]) influenza, recombinant, quadrIvalent,injectable, prese rvative free 06/16/2020 03:29:00 PM EDT completed eCW1 ([facility]) influenza, recombinant, quadrIvalent,injectable, prese rvative free 06/16/2020 03:29:00 PM EDT completed eCW1 ([facility]) influenza, recombinant, quadrIvalent,injectable, prese rvative free 06/16/2020 03:29:00 PM EDT completed eCW1 ([facility]) influenza, recombinant, quadrIvalent,injectable, prese rvative free 06/16/2020 03:29:00 PM EDT completed eCW1 ([facility]) influenza, recombinant, quadrIvalent,injectable, prese rvative free 06/16/2020 03:29:00 PM EDT completed eCW1 ([facility]) influenza, recombinant, quadrIvalent,injectable, prese rvative free 06/16/2020 03:29:00 PM EDT completed eCW1 ([facility]) influenza, recombinant, quadrIvalent,injectable, prese rvative free 06/16/2020 03:29:00 PM EDT completed eCW1 ([facility]) influenza, recombinant, quadrIvalent,injectable, prese rvative free 06/16/2020 03:29:00 PM EDT completed eCW1 ([facility]) influenza, recombinant, quadrIvalent,injectable, prese rvative free 06/16/2020 03:29:00 PM EDT completed eCW1 ([facility]) influenza, recombinant, quadrIvalent,injectable, prese rvative free 06/16/2020 03:29:00 PM EDT completed eCW1 ([facility]) influenza, recombinant, quadrIvalent,injectable, prese rvative free 06/16/2020 03:29:00 PM EDT completed eCW1 ([facility]) influenza, recombinant, quadrIvalent,injectable, prese rvative free 06/16/2020 03:29:00 PM EDT completed eCW1 ([facility]) influenza, recombinant, quadrIvalent,injectable, prese rvative free 06/16/2020 03:29:00 PM EDT completed eCW1 ([facility]) influenza, recombinant, quadrIvalent,injectable, prese rvative free 06/16/2020 03:29:00 PM EDT completed eCW1 ([facility]) influenza, recombinant, quadrIvalent,injectable, prese rvative free 06/16/2020 03:29:00 PM EDT completed eCW1 ([facility]) influenza, recombinant, quadrIvalent,injectable, prese rvative free 06/16/2020 03:29:00 PM EDT completed eCW1 ([facility]) influenza, recombinant, quadrIvalent,injectable, prese rvative free 06/16/2020 03:29:00 PM EDT completed eCW1 ([facility]) influenza, recombinant, quadrIvalent,injectable, prese rvative free 06/16/2020 03:29:00 PM EDT completed eCW1 ([facility]) influenza, recombinant, quadrIvalent,injectable, prese rvative free 06/16/2020 03:29:00 PM EDT completed eCW1 ([facility]) influenza, recombinant, quadrIvalent,injectable, prese rvative free 06/16/2020 03:29:00 PM EDT completed eCW1 ([facility]) influenza, recombinant, quadrIvalent,injectable, prese rvative free 06/16/2020 03:29:00 PM EDT completed eCW1 ([facility]) influenza, recombinant, quadrIvalent,injectable, prese rvative free 06/16/2020 03:29:00 PM EDT completed eCW1 ([facility]) influenza, recombinant, quadrIvalent,injectable, prese rvative free 06/16/2020 03:29:00 PM EDT completed eCW1 ([facility]) influenza, recombinant, quadrIvalent,injectable, prese rvative free 06/16/2020 03:29:00 PM EDT completed eCW1 ([facility]) influenza, recombinant, quadrIvalent,injectable, prese rvative free 06/16/2020 03:29:00 PM EDT completed eCW1 ([facility]) influenza, recombinant, quadrIvalent,injectable, prese rvative free 06/16/2020 03:29:00 PM EDT completed eCW1 ([facility]) influenza, recombinant, quadrIvalent,injectable, prese rvative free 06/16/2020 03:29:00 PM EDT completed eCW1 ([facility]) Medications Medication Brand Name Start Date Product Form Dose Route Admi nistrative Instructions Pharmacy Instructions Status Indications Reaction Description Data Source(s) Fluocinonide 0.5 MG/ML Topical Solution Fluocinonide 0.05 % Fluocinonide 0.05 % 06/03/2021 12:00:00 AM EDT 1.0 {application} act felecia Fluocinonide 0.05 % eCW1 ([facility]) Fluocinonide 0.5 MG/ML Topical Solution Fluocinonide 0.05 % Fluocinonide 0.05 % 06/03/2021 12:00:00 AM EDT 1.0 {application} act felecia Fluocinonide 0.05 % eCW1 ([facility]) Fluocinonide 0.5 MG/ML Topical Solution Fluocinonide 0.05 % Fluocinonide 0.05 % 06/03/2021 12:00:00 AM EDT 1.0 {application} act felecia Fluocinonide 0.05 % eCW1 ([facility]) Fluocinonide 0.5 MG/ML Topical Solution Fluocinonide 0.05 % Fluocinonide 0.05 % 06/03/2021 12:00:00 AM EDT 1.0 {application} act felecia Fluocinonide 0.05 % eCW1 ([facility]) Triamcinolone Acetonide 0.001 MG/MG Topi jimmy Ointment Triamcinolone Acetonide 0.1 % Triamcinolone Acetonide 0.1 % 06/03/2021 12:00:00 AM EDT 1.0 {application} active Triamcinolone Aceton damon 0.1 % eCW1 ([facility]) Triamcinolone Acetonide 0.001 MG/MG Topi jimmy Ointment Triamcinolone Acetonide 0.1 % Triamcinolone Acetonide 0.1 % 06/03/2021 12:00:00 AM EDT 1.0 {application} active Triamcinolone Aceton damon 0.1 % eCW1 ([facility]) Triamcinolone Acetonide 0.001 MG/MG Topi jimmy Ointment Triamcinolone Acetonide 0.1 % Triamcinolone Acetonide 0.1 % 06/03/2021 12:00:00 AM EDT 1.0 {application} active Triamcinolone Aceton damon 0.1 % eCW1 ([facility]) Triamcinolone Acetonide 0.001 MG/MG Topi jimmy Ointment Triamcinolone Acetonide 0.1 % Triamcinolone Acetonide 0.1 % 06/03/2021 12:00:00 AM EDT 1.0 {application} active Triamcinolone Aceton damon 0.1 % eCW1 ([facility]) Fluocinonide 0.5 MG/ML Topical Solution Fluocinonide 0.05 % Fluocinonide 0.05 % 06/03/2021 12:00:00 AM EDT 1.0 {application} act felecia Fluocinonide 0.05 % eCW1 ([facility]) Fluocinonide 0.5 MG/ML Topical Solution Fluocinonide 0.05 % Fluocinonide 0.05 % 06/03/2021 12:00:00 AM EDT 1.0 {application} act felecia Fluocinonide 0.05 % eCW1 ([facility]) Triamcinolone Acetonide 0.001 MG/MG Topi jimmy Ointment Triamcinolone Acetonide 0.1 % Triamcinolone Acetonide 0.1 % 06/03/2021 12:00:00 AM EDT 1.0 {application} active Triamcinolone Aceton damon 0.1 % eCW1 ([facility]) Triamcinolone Acetonide 0.001 MG/MG Topi jimmy Ointment Triamcinolone Acetonide 0.1 % Triamcinolone Acetonide 0.1 % 06/03/2021 12:00:00 AM EDT 1.0 {application} active Triamcinolone Aceton damon 0.1 % eCW1 ([facility]) Amlodipine 5 MG Oral Tablet Amlodipine Besylate 5 MG Amlodip ine Besylate 5 MG 05/17/2021 12:00:00 AM EDT 1.0 {tablet} active Amlodipine Besylate 5 MG eCW1 ([facility]) Amlodipine 5 MG Oral Tablet Amlodipine Besylate 5 MG Amlodip ine Besylate 5 MG 05/17/2021 12:00:00 AM EDT 1.0 {tablet} active Amlodipine Besylate 5 MG eCW1 ([facility]) Amlodipine 5 MG Oral Tablet Amlodipine Besylate 5 MG Amlodip ine Besylate 5 MG 05/17/2021 12:00:00 AM EDT 1.0 {tablet} active Amlodipine Besylate 5 MG eCW1 ([facility]) 24 HR quetiapine 200 MG Extended Release Oral Tablet quetiap ine 05/13/2021 12:00:00 AM EDT 200 mg by mouth completed <td ID="MedicationRxNorm_2">930165</td><td ID="MedicationMedication_2">quetiapine</td><td ID="MedicationRoute_2">by mouth</td><td ID="MedicationRouteConcept_2">A10288</td><td ID="MedicationStartDate_2">05/13/2021</td><td ID="MedicationStopDate_2">08/11/2021</td><td ID="MedicationDosageFrequency_2">at bedtime</td><td ID="MedicationDuration_2">30</td><td ID="MedicationFormulaStrength_2">200 mg</td><td ID="MedicationDosageForm_2">tablet extended release 24 hr</td><td ID="MedicationDosageFormCode_2"></td><td ID="MedicationDosageDescription_2"></td><td ID="MedicationMedicationId_2">[id number]</td><td ID="MedicationAccount_2">[id number]</td><td ID="MedicationNpid_2">[id number]</td><td ID="MedicationAuthorFirstName_2">Kemi</td><td ID="MedicationAuthorLastName_2">MacQueen</td><td ID="MedicationTaxonomyCode_2">[id number]</td><td ID="MedicationTaxonomyDesc_2"> Psychiatric/Mental Health</td><td ID="MedicationPhoneNumber_2">[phone]</td> [facility] ([facility]) quetiapine 50 MG Oral Tablet quetiapine 05/13/2021 12:00:00 AM EDT 50 mg by mouth completed <td ID="Medica tionRxNorm_5">981983</td><td ID="MedicationMedication_5">quetiapine</td><td ID="MedicationRoute_5">by mouth</td><td ID="MedicationRouteConcept_5">B32936</td><td ID="MedicationStartDate_5">05/13/2021</td><td ID="MedicationStopDate_5">08/11/2021</td><td ID="MedicationDosageFrequency_5">twice a day</td><td ID="MedicationDuration_5">30</td><td ID="MedicationFormulaStrength_5">50 mg</td><td ID="MedicationDosageForm_5">tablet</td><td ID="MedicationDosageFormCode_5"></td><td ID="MedicationDosageDescription_5"></td><td ID="MedicationMedicationId_5">[id number]</td><td ID="MedicationAccount_5">[id number]</td><td ID="MedicationNpid_5">[id number]</td><td ID="MedicationAuthorFirstName_5">Kemi</td><td ID="MedicationAuthorLastName_5">MacQueen</td><td ID="MedicationTaxonomyCode_5">[id number]</td><td ID="MedicationTaxonomyDesc_5">Psychiatric/Mental Health</td><td ID="MedicationPhoneNumber_5">[phone]</td> [facility] ([facility]) 24 HR quetiapine 200 MG Extended Release Oral Tablet quetiap ine 05/13/2021 12:00:00 AM EDT 200 mg by mouth completed <td ID="MedicationRxNorm_4">211243</td><td ID="MedicationMedication_4">quetiapine</td><td ID="MedicationRoute_4">by mouth</td><td ID="MedicationRouteConcept_4">R92254</td><td ID="MedicationStartDate_4">05/13/2021</td><td ID="MedicationStopDate_4">08/11/2021</td><td ID="MedicationDosageFrequency_4">at bedtime</td><td ID="MedicationDuration_4">30</td><td ID="MedicationFormulaStrength_4">200 mg</td><td ID="MedicationDosageForm_4">tablet extended release 24 hr</td><td ID="MedicationDosageFormCode_4"></td><td ID="MedicationDosageDescription_4"></td><td ID="MedicationMedicationId_4">[id number]</td><td ID="MedicationAccount_4">[id number]</td><td ID="MedicationNpid_4">[id number]</td><td ID="MedicationAuthorFirstName_4">Kemi</td><td ID="MedicationAuthorLastName_4">MacQueen</td><td ID="MedicationTaxonomyCode_4">[id number]</td><td ID="MedicationTaxonomyDesc_4"> Psychiatric/Mental Health</td><td ID="MedicationPhoneNumber_4">[phone]</td> [facility] ([facility]) quetiapine 50 MG Oral Tablet quetiapine 05/13/2021 12:00:00 AM EDT 50 mg by mouth completed <td ID="Medica tionRxNorm_3">844075</td><td ID="MedicationMedication_3">quetiapine</td><td ID="MedicationRoute_3">by mouth</td><td ID="MedicationRouteConcept_3">W41186</td><td ID="MedicationStartDate_3">05/13/2021</td><td ID="MedicationStopDate_3">08/11/2021</td><td ID="MedicationDosageFrequency_3">twice a day</td><td ID="MedicationDuration_3">30</td><td ID="MedicationFormulaStrength_3">50 mg</td><td ID="MedicationDosageForm_3">tablet</td><td ID="MedicationDosageFormCode_3"></td><td ID="MedicationDosageDescription_3"></td><td ID="MedicationMedicationId_3">[id number]</td><td ID="MedicationAccount_3">[id number]</td><td ID="MedicationNpid_3">[id number]</td><td ID="MedicationAuthorFirstName_3">Kemi</td><td ID="MedicationAuthorLastName_3">MacQueen</td><td ID="MedicationTaxonomyCode_3">[id number]</td><td ID="MedicationTaxonomyDesc_3">Psychiatric/Mental Health</td><td ID="MedicationPhoneNumber_3">[phone]</td> [facility] ([facility]) Pabellones Carbonate 300 MG Oral Tablet lithium carbonate 12:00:00 AM EDT 300 mg by mouth completed <td ID="MedicationRxNorm_4">156725</td><td ID="MedicationMedication_4">lithium carbonate</td><td ID="MedicationRoute_4">by mouth</td><td ID="MedicationRouteConcept_4">R50653</td><td ID="MedicationStartDate_4">05/13/2021</td><td ID="MedicationStopDate_4">07/12/2021</td><td ID="MedicationDosageFrequency_4">once a day</td><td ID="MedicationDuration_4">30</td><td ID="MedicationFormulaStrength_4">300 mg</td><td ID="MedicationDosageForm_4">tablet</td><td ID="MedicationDosageFormCode_4"></td><td ID="MedicationDosageDescription_4"></td><td ID="MedicationMedicationId_4">[id number]</td><td ID="MedicationAccount_4">[id number]</td><td ID="MedicationNpid_4">[id number]</td><td ID="MedicationAuthorFirstName_4">Kemi</td><td ID="MedicationAuthorLastName_4">MacQueen</td><td ID="MedicationTaxonomyCode_4">[id number]</td><td ID="MedicationTaxonomyDesc_4">Psychiatric/Mental Health</td><td ID="MedicationPhoneNumber_4">[phone]</td> [facility] ([facility]) Pabellones Carbonate 300 MG Oral Tablet lithium carbonate 12:00:00 AM EDT 300 mg by mouth completed <td ID="MedicationRxNorm_5">355139</td><td ID="MedicationMedication_5">lithium carbonate</td><td ID="MedicationRoute_5">by mouth</td><td ID="MedicationRouteConcept_5">V96631</td><td ID="MedicationStartDate_5">05/13/2021</td><td ID="MedicationStopDate_5">09/14/2021</td><td ID="MedicationDosageFrequency_5">once a day</td><td ID="MedicationDuration_5">30</td><td ID="MedicationFormulaStrength_5">300 mg</td><td ID="MedicationDosageForm_5">tablet</td><td ID="MedicationDosageFormCode_5"></td><td ID="MedicationDosageDescription_5"></td><td ID="MedicationMedicationId_5">[id number]</td><td ID="MedicationAccount_5">[id number]</td><td ID="MedicationNpid_5">[id number]</td><td ID="MedicationAuthorFirstName_5">Kemi</td><td ID="MedicationAuthorLastName_5">MacQueen</td><td ID="MedicationTaxonomyCode_5">[id number]</td><td ID="MedicationTaxonomyDesc_5">Psychiatric/Mental Health</td><td ID="MedicationPhoneNumber_5">[phone]</td> [facility] ([facility]) Pabellones Carbonate 300 MG Oral Tablet lithium carbonate 12:00:00 AM EDT 300 mg by mouth completed <td ID="MedicationRxNorm_2">901112</td><td ID="MedicationMedication_2">lithium carbonate</td><td ID="MedicationRoute_2">by mouth</td><td ID="MedicationRouteConcept_2">Q40018</td><td ID="MedicationStartDate_2">05/13/2021</td><td ID="MedicationStopDate_2">07/12/2021</td><td ID="MedicationDosageFrequency_2">once a day</td><td ID="MedicationDuration_2">30</td><td ID="MedicationFormulaStrength_2">300 mg</td><td ID="MedicationDosageForm_2">tablet</td><td ID="MedicationDosageFormCode_2"></td><td ID="MedicationDosageDescription_2"></td><td ID="MedicationMedicationId_2">[id number]</td><td ID="MedicationAccount_2">[id number]</td><td ID="MedicationNpid_2">[id number]</td><td ID="MedicationAuthorFirstName_2">Kemi</td><td ID="MedicationAuthorLastName_2">MacQueen</td><td ID="MedicationTaxonomyCode_2">[id number]</td><td ID="MedicationTaxonomyDesc_2">Psychiatric/Mental Health</td><td ID="MedicationPhoneNumber_2">[phone]</td> [facility] ([facility]) Amlodipine 5 MG Oral Tablet amLODIPine Besylate 5 MG amLODIP ine Besylate 5 MG 05/10/2021 12:00:00 AM EDT 1.0 {tablet} active amLODIPine Besylate 5 MG eCW1 ([facility]) Pabellones Carbonate 300 MG Oral Capsule Pabellones Carbonate 300 MG 05/10/2021 12:00:00 AM EDT 1.0 {capsule_at_bedtime} active Pabellones Carbonate 300 MG eCW1 ([facility]) Pabellones Carbonate 300 MG Oral Capsule Pabellones Carbonate 300 MG 05/10/2021 12:00:00 AM EDT 1.0 {capsule_at_bedtime} active Pabellones Carbonate 300 MG eCW1 ([facility]) Amlodipine 5 MG Oral Tablet amLODIPine Besylate 5 MG amLODIP ine Besylate 5 MG 05/10/2021 12:00:00 AM EDT 1.0 {tablet} active amLODIPine Besylate 5 MG eCW1 ([facility]) Amlodipine 5 MG Oral Tablet amLODIPine Besylate 5 MG amLODIP ine Besylate 5 MG 05/10/2021 12:00:00 AM EDT 1.0 {tablet} active amLODIPine Besylate 5 MG eCW1 ([facility]) Sertraline 100 MG Oral Tablet [Zoloft] Zoloft 100 MG Zoloft 100 MG 05/10/2021 12:00:00 AM EDT 1.0 {tablet} active Zo loft 100 MG eCW1 ([facility]) Pabellones Carbonate 300 MG Oral Capsule Pabellones Carbonate 300 MG 05/10/2021 12:00:00 AM EDT 1.0 {capsule_at_bedtime} active Pabellones Carbonate 300 MG eCW1 ([facility]) Pabellones Carbonate 300 MG Oral Capsule Pabellones Carbonate 300 MG 05/10/2021 12:00:00 AM EDT 1.0 {capsule_at_bedtime} active Pabellones Carbonate 300 MG eCW1 ([facility]) Pabellones Carbonate 300 MG Oral Capsule Pabellones Carbonate 300 MG 05/10/2021 12:00:00 AM EDT 1.0 {capsule_at_bedtime} active Pabellones Carbonate 300 MG eCW1 ([facility]) Amlodipine 5 MG Oral Tablet amLODIPine Besylate 5 MG amLODIP ine Besylate 5 MG 05/10/2021 12:00:00 AM EDT 1.0 {tablet} active amLODIPine Besylate 5 MG eCW1 ([facility]) Pabellones Carbonate 300 MG Oral Capsule Pabellones Carbonate 300 MG 05/10/2021 12:00:00 AM EDT 1.0 {capsule_at_bedtime} active Pabellones Carbonate 300 MG eCW1 ([facility]) Sertraline 100 MG Oral Tablet [Zoloft] Zoloft 100 MG Zoloft 100 MG 05/10/2021 12:00:00 AM EDT 1.0 {tablet} active Zo loft 100 MG eCW1 ([facility]) Amlodipine 5 MG Oral Tablet amLODIPine Besylate 5 MG amLODIP ine Besylate 5 MG 05/10/2021 12:00:00 AM EDT 1.0 {tablet} active amLODIPine Besylate 5 MG eCW1 ([facility]) Pabellones Carbonate 300 MG Oral Capsule Pabellones Carbonate 300 MG 05/10/2021 12:00:00 AM EDT 1.0 {capsule_at_bedtime} active Pabellones Carbonate 300 MG eCW1 ([facility]) Amlodipine 5 MG Oral Tablet amLODIPine Besylate 5 MG amLODIP ine Besylate 5 MG 05/10/2021 12:00:00 AM EDT 1.0 {tablet} active amLODIPine Besylate 5 MG eCW1 ([facility]) Pabellones Carbonate 300 MG Oral Capsule Pabellones Carbonate 300 MG 05/10/2021 12:00:00 AM EDT 1.0 {capsule_at_bedtime} active Pabellones Carbonate 300 MG eCW1 ([facility]) Pabellones Carbonate 300 MG Oral Capsule Pabellones Carbonate 300 MG 05/10/2021 12:00:00 AM EDT 1.0 {capsule_at_bedtime} active Pabellones Carbonate 300 MG eCW1 ([facility]) Amlodipine 5 MG Oral Tablet amLODIPine Besylate 5 MG amLODIP ine Besylate 5 MG 05/10/2021 12:00:00 AM EDT 1.0 {tablet} active amLODIPine Besylate 5 MG eCW1 ([facility]) Amlodipine 5 MG Oral Tablet amLODIPine Besylate 5 MG amLODIP ine Besylate 5 MG 05/10/2021 12:00:00 AM EDT 1.0 {tablet} active amLODIPine Besylate 5 MG eCW1 ([facility]) Amlodipine 5 MG Oral Tablet amLODIPine Besylate 5 MG amLODIP ine Besylate 5 MG 05/10/2021 12:00:00 AM EDT 1.0 {tablet} active amLODIPine Besylate 5 MG eCW1 ([facility]) Amlodipine 5 MG Oral Tablet amLODIPine Besylate 5 MG amLODIP ine Besylate 5 MG 05/10/2021 12:00:00 AM EDT 1.0 {tablet} active amLODIPine Besylate 5 MG eCW1 ([facility]) Pabellones Carbonate 300 MG Oral Capsule Pabellones Carbonate 300 MG 05/10/2021 12:00:00 AM EDT 1.0 {capsule_at_bedtime} active Pabellones Carbonate 300 MG eCW1 ([facility]) Sertraline 100 MG Oral Tablet [Zoloft] Zoloft 100 MG Zoloft 100 MG 05/10/2021 12:00:00 AM EDT 1.0 {tablet} active Zo loft 100 MG eCW1 ([facility]) Lidocaine Hydrochloride 20 MG/ML Mucous Membrane Topical Solution Lidocaine Viscous HCl 2 % Lidocaine Viscous HCl 2 % 04/26/2021 12:00:00 AM EDT 15.0 {ml_as_needed} active Lidocaine Viscous HCl 2 % eCW1 ([facility]) Lidocaine Hydrochloride 20 MG/ML Mucous Membrane Topical Solution Lidocaine Viscous HCl 2 % Lidocaine Viscous HCl 2 % 04/26/2021 12:00:00 AM EDT 15.0 {ml} active Lidocaine Viscous HCl 2 % eCW1 ([facility]) Lidocaine Hydrochloride 20 MG/ML Mucous Membrane Topical Solution Lidocaine Viscous HCl 2 % Lidocaine Viscous HCl 2 % 04/26/2021 12:00:00 AM EDT 15.0 {ml_as_needed} active Lidocaine Viscous HCl 2 % eCW1 ([facility]) Lidocaine Hydrochloride 20 MG/ML Mucous Membrane Topical Solution Lidocaine Viscous HCl 2 % Lidocaine Viscous HCl 2 % 04/26/2021 12:00:00 AM EDT 15.0 {ml_as_needed} active Lidocaine Viscous HCl 2 % eCW1 ([facility]) Lidocaine Hydrochloride 20 MG/ML Mucous Membrane Topical Solution Lidocaine Viscous HCl 2 % Lidocaine Viscous HCl 2 % 04/26/2021 12:00:00 AM EDT 15.0 {ml_as_needed} active Lidocaine Viscous HCl 2 % eCW1 ([facility]) Lidocaine Hydrochloride 20 MG/ML Mucous Membrane Topical Solution Lidocaine Viscous HCl 2 % Lidocaine Viscous HCl 2 % 04/26/2021 12:00:00 AM EDT 15.0 {ml_as_needed} active Lidocaine Viscous HCl 2 % eCW1 ([facility]) Sertraline 100 MG Oral Tablet [Zoloft] Zoloft 03/29/2021 12:0 0:00 AM EDT 100 mg by mouth completed <td ID="Me dicationRxNorm_4">[id number]</td><td ID="MedicationMedication_4">Zoloft</td><td ID="MedicationRoute_4">by mouth</td><td ID="MedicationRouteConcept_4">E20618</td><td ID="MedicationStartDate_4">03/29/2021</td><td ID="MedicationStopDate_4">09/14/2021</td><td ID="MedicationDosageFrequency_4">every morning</td><td ID="MedicationDuration_4">30</td><td ID="MedicationFormulaStrength_4">100 mg</td><td ID="MedicationDosageForm_4">tablet</td><td ID="MedicationDosageFormCode_4"></td><td ID="MedicationDosageDescription_4"> </td><td ID="MedicationMedicationId_4">[id number]</td><td ID="MedicationAccount_4">[id number]</td><td ID="MedicationNpid_4">[id number]</td><td ID="MedicationAuthorFirstName_4">Kemi</td><td ID="MedicationAuthorLastName_4">MacQueen</td><td ID="MedicationTaxonomyCode_4">[id number]</td><td ID="MedicationTaxonomyDesc_4">Psychiatric/Mental Health</td><td ID="MedicationPhoneNumber_4">[phone]</td> [facility] ([facility]) Sertraline 100 MG Oral Tablet [Zoloft] Zoloft 03/29/2021 12:0 0:00 AM EDT 100 mg by mouth completed <td ID="Me dicationRxNorm_3">396999</td><td ID="MedicationMedication_3">Zoloft</td><td ID="MedicationRoute_3">by mouth</td><td ID="MedicationRouteConcept_3">U11363</td><td ID="MedicationStartDate_3">03/29/2021</td><td ID="MedicationStopDate_3">07/13/2021</td><td ID="MedicationDosageFrequency_3">every morning</td><td ID="MedicationDuration_3">30</td><td ID="MedicationFormulaStrength_3">100 mg</td><td ID="MedicationDosageForm_3">tablet</td><td ID="MedicationDosageFormCode_3"></td><td ID="MedicationDosageDescription_3"> </td><td ID="MedicationMedicationId_3">[id number]</td><td ID="MedicationAccount_3">[id number]</td><td ID="MedicationNpid_3">[id number]</td><td ID="MedicationAuthorFirstName_3">Kemi</td><td ID="MedicationAuthorLastName_3">MacQueen</td><td ID="MedicationTaxonomyCode_3">[id number]</td><td ID="MedicationTaxonomyDesc_3">Psychiatric/Mental Health</td><td ID="MedicationPhoneNumber_3">[phone]</td> [facility] ([facility]) Hydroxychloroquine Sulfate 200 MG Oral T ablet Hydroxychloroquine Sulfate 200 MG Oral Tablet (PLAQUENIL) Hydroxychloroquine Sulfate 200 MG Oral T ablet (PLAQUENIL) 02/18/2021 12:00:00 AM EDT a ctive Rheumatoid factor positivePositive HAYLIE (antinuclear antibody)PolyarthralgiaESR raisedMCTD (mixed connective tissue disease) TAKE ONE TABLET BY MOUTH @8 AM and TAKE ONE TABLET BY MOUTH @8PM [facility] Rheumatoid factor positive Positive HAYLIE (antinuclear antibody) Polyarthralgia ESR raised MCTD (mixed connective tissue disease) 2 ML Sodium Hyaluronate 10 MG/ML Prefilled Syringe [Euflexxa ] Euflexxa 12/11/2020 12:00:00 AM EDT active MEDENT ([facility] ) retapamulin 0.01 MG/MG Topical Ointment [Altabax] Altabax 1 % Altabax 1 % 10/08/2020 12:00:00 AM EST 1.0 {application} active Altabax 1 % eCW1 ([facility]) retapamulin 0.01 MG/MG Topical Ointment [Altabax] Altabax 1 % Altabax 1 % 10/08/2020 12:00:00 AM EST 1.0 {application} active Altabax 1 % eCW1 ([facility]) retapamulin 0.01 MG/MG Topical Ointment [Altabax] Altabax 1 % Altabax 1 % 10/08/2020 12:00:00 AM EST 1.0 {application} active Altabax 1 % eCW1 ([facility]) retapamulin 0.01 MG/MG Topical Ointment [Altabax] Altabax 1 % Altabax 1 % 10/08/2020 12:00:00 AM EST 1.0 {application} active Altabax 1 % eCW1 ([facility]) Fluconazole 100 MG Oral Tablet [Diflucan] Diflucan 100 MG Di flucan 100 MG 10/08/2020 12:00:00 AM EST 1.0 {tablet} active Diflucan 100 MG eCW1 ([facility]) Fluconazole 100 MG Oral Tablet [Diflucan] Diflucan 100 MG Di flucan 100 MG 10/08/2020 12:00:00 AM EST 1.0 {tablet} active Diflucan 100 MG eCW1 ([facility]) retapamulin 0.01 MG/MG Topical Ointment [Altabax] Altabax 1 % Altabax 1 % 10/08/2020 12:00:00 AM EST 1.0 {application} active Altabax 1 % eCW1 ([facility]) Fluconazole 100 MG Oral Tablet [Diflucan] Diflucan 100 MG Di flucan 100 MG 10/08/2020 12:00:00 AM EST 1.0 {tablet} active Diflucan 100 MG eCW1 ([facility]) Fluconazole 100 MG Oral Tablet [Diflucan] Diflucan 100 MG Di flucan 100 MG 10/08/2020 12:00:00 AM EST 1.0 {tablet} active Diflucan 100 MG eCW1 ([facility]) retapamulin 0.01 MG/MG Topical Ointment [Altabax] Altabax 1 % Altabax 1 % 10/08/2020 12:00:00 AM EST 1.0 {application} active Altabax 1 % eCW1 ([facility]) retapamulin 0.01 MG/MG Topical Ointment [Altabax] Altabax 1 % Altabax 1 % 10/08/2020 12:00:00 AM EST 1.0 {application} active Altabax 1 % eCW1 ([facility]) Fluconazole 100 MG Oral Tablet [Diflucan] Diflucan 100 MG Di flucan 100 MG 10/08/2020 12:00:00 AM EST 1.0 {tablet} active Diflucan 100 MG eCW1 ([facility]) Fluconazole 100 MG Oral Tablet [Diflucan] Diflucan 100 MG Di flucan 100 MG 10/08/2020 12:00:00 AM EST 1.0 {tablet} active Diflucan 100 MG eCW1 ([facility]) retapamulin 0.01 MG/MG Topical Ointment [Altabax] Altabax 1 % Altabax 1 % 10/08/2020 12:00:00 AM EST 1.0 {application} active Altabax 1 % eCW1 ([facility]) Fluconazole 100 MG Oral Tablet [Diflucan] Diflucan 100 MG Di flucan 100 MG 10/08/2020 12:00:00 AM EST 1.0 {tablet} active Diflucan 100 MG eCW1 ([facility]) retapamulin 0.01 MG/MG Topical Ointment [Altabax] Altabax 1 % Altabax 1 % 10/08/2020 12:00:00 AM EST 1.0 {application} active Altabax 1 % eCW1 ([facility]) Fluconazole 100 MG Oral Tablet [Diflucan] Diflucan 100 MG Di flucan 100 MG 10/08/2020 12:00:00 AM EST 1.0 {tablet} active Diflucan 100 MG eCW1 ([facility]) Fluconazole 100 MG Oral Tablet [Diflucan] Diflucan 100 MG Di flucan 100 MG 10/08/2020 12:00:00 AM EST 1.0 {tablet} active Diflucan 100 MG eCW1 ([facility]) retapamulin 0.01 MG/MG Topical Ointment [Altabax] Altabax 1 % Altabax 1 % 10/08/2020 12:00:00 AM EST 1.0 {application} active Altabax 1 % eCW1 ([facility]) Fluconazole 100 MG Oral Tablet [Diflucan] Diflucan 100 MG Di flucan 100 MG 10/08/2020 12:00:00 AM EST 1.0 {tablet} active Diflucan 100 MG eCW1 ([facility]) Fluconazole 100 MG Oral Tablet [Diflucan] Diflucan 100 MG Di flucan 100 MG 10/08/2020 12:00:00 AM EST 1.0 {tablet} active Diflucan 100 MG eCW1 ([facility]) retapamulin 0.01 MG/MG Topical Ointment [Altabax] Altabax 1 % Altabax 1 % 10/08/2020 12:00:00 AM EST 1.0 {application} active Altabax 1 % eCW1 ([facility]) Fluconazole 100 MG Oral Tablet [Diflucan] Diflucan 100 MG Di flucan 100 MG 10/08/2020 12:00:00 AM EST 1.0 {tablet} active Diflucan 100 MG eCW1 ([facility]) retapamulin 0.01 MG/MG Topical Ointment [Altabax] Altabax 1 % Altabax 1 % 10/08/2020 12:00:00 AM EST 1.0 {application} active Altabax 1 % eCW1 ([facility]) retapamulin 0.01 MG/MG Topical Ointment [Altabax] Altabax 1 % Altabax 1 % 10/08/2020 12:00:00 AM EST 1.0 {application} active Altabax 1 % eCW1 ([facility]) retapamulin 0.01 MG/MG Topical Ointment [Altabax] Altabax 1 % Altabax 1 % 10/08/2020 12:00:00 AM EST 1.0 {application} active Altabax 1 % eCW1 ([facility]) Fluconazole 100 MG Oral Tablet [Diflucan] Diflucan 100 MG Di flucan 100 MG 10/08/2020 12:00:00 AM EST 1.0 {tablet} active Diflucan 100 MG eCW1 ([facility]) retapamulin 0.01 MG/MG Topical Ointment [Altabax] Altabax 1 % Altabax 1 % 10/08/2020 12:00:00 AM EST 1.0 {application} active Altabax 1 % eCW1 ([facility]) Fluconazole 100 MG Oral Tablet [Diflucan] Diflucan 100 MG Di flucan 100 MG 10/08/2020 12:00:00 AM EST 1.0 {tablet} active Diflucan 100 MG eCW1 ([facility]) Fluconazole 100 MG Oral Tablet [Diflucan] Diflucan 100 MG Di flucan 100 MG 10/08/2020 12:00:00 AM EST 1.0 {tablet} active Diflucan 100 MG eCW1 ([facility]) Fluconazole 100 MG Oral Tablet [Diflucan] Diflucan 100 MG Di flucan 100 MG 10/08/2020 12:00:00 AM EST 1.0 {tablet} active Diflucan 100 MG eCW1 ([facility]) retapamulin 0.01 MG/MG Topical Ointment [Altabax] Altabax 1 % Altabax 1 % 10/08/2020 12:00:00 AM EST 1.0 {application} active Altabax 1 % eCW1 ([facility]) Fluconazole 100 MG Oral Tablet [Diflucan] Diflucan 100 MG Di flucan 100 MG 10/08/2020 12:00:00 AM EST 1.0 {tablet} active Diflucan 100 MG eCW1 ([facility]) Fluconazole 100 MG Oral Tablet [Diflucan] Diflucan 100 MG Di flucan 100 MG 10/08/2020 12:00:00 AM EST 1.0 {tablet} active Diflucan 100 MG eCW1 ([facility]) retapamulin 0.01 MG/MG Topical Ointment [Altabax] Altabax 1 % Altabax 1 % 10/08/2020 12:00:00 AM EST 1.0 {application} active Altabax 1 % eCW1 ([facility]) retapamulin 0.01 MG/MG Topical Ointment [Altabax] Altabax 1 % Altabax 1 % 10/08/2020 12:00:00 AM EST 1.0 {application} active Altabax 1 % eCW1 ([facility]) Rolling Walker 1 UNK 07/13/2020 12:00:00 AM EST active Rolling Walker 1 eCW1 ([facility]) Rolling Walker 1 UNK 07/13/2020 12:00:00 AM EST active Rolling Walker 1 eCW1 ([facility]) Rolling Walker 1 UNK 07/13/2020 12:00:00 AM EST active Rolling Walker 1 eCW1 ([facility]) Rolling Walker 1 UNK 07/13/2020 12:00:00 AM EST active Rolling Walker 1 eCW1 ([facility]) Rolling Walker 1 UNK 07/13/2020 12:00:00 AM EST active Rolling Walker 1 eCW1 ([facility]) Rolling Walker 1 UNK 07/13/2020 12:00:00 AM EST active Rolling Walker 1 eCW1 ([facility]) Rolling Walker 1 UNK 07/13/2020 12:00:00 AM EST active Rolling Walker 1 eCW1 ([facility]) Rolling Walker 1 UNK 07/13/2020 12:00:00 AM EST active Rolling Walker 1 eCW1 ([facility]) Rolling Walker 1 UNK 07/13/2020 12:00:00 AM EST active Rolling Walker 1 eCW1 ([facility]) Rolling Walker 1 UNK 07/13/2020 12:00:00 AM EST active Rolling Walker 1 eCW1 ([facility]) Rolling Walker 1 UNK 07/13/2020 12:00:00 AM EST active Rolling Walker 1 eCW1 ([facility]) Rolling Walker 1 UNK 07/13/2020 12:00:00 AM EST active Rolling Walker 1 eCW1 ([facility]) Rolling Walker 1 UNK 07/13/2020 12:00:00 AM EST active Rolling Walker 1 eCW1 ([facility]) Rolling Walker 1 UNK 07/13/2020 12:00:00 AM EST active Rolling Walker 1 eCW1 ([facility]) Rolling Walker 1 UNK 07/13/2020 12:00:00 AM EST active Rolling Walker 1 eCW1 ([facility]) Rolling Walker 1 UNK 07/13/2020 12:00:00 AM EST active Rolling Walker 1 eCW1 ([facility]) Rolling Walker 1 UNK 07/13/2020 12:00:00 AM EST active Rolling Walker 1 eCW1 ([facility]) Rolling Walker 1 UNK 07/13/2020 12:00:00 AM EST active Rolling Walker 1 eCW1 ([facility]) Rolling Walker 1 UNK 07/13/2020 12:00:00 AM EST active Rolling Walker 1 eCW1 ([facility]) Rolling Walker 1 UNK 07/13/2020 12:00:00 AM EST active Rolling Walker 1 eCW1 ([facility]) Rolling Walker 1 UNK 07/13/2020 12:00:00 AM EST active Rolling Walker 1 eCW1 ([facility]) Rolling Walker 1 UNK 07/13/2020 12:00:00 AM EST active Rolling Walker 1 eCW1 ([facility]) Rolling Walker 1 UNK 07/13/2020 12:00:00 AM EST active Rolling Walker 1 eCW1 ([facility]) Rolling Walker 1 UNK 07/13/2020 12:00:00 AM EST active Rolling Walker 1 eCW1 ([facility]) Rolling Walker 1 UNK 07/13/2020 12:00:00 AM EST active Rolling Walker 1 eCW1 ([facility]) Rolling Walker 1 UNK 07/13/2020 12:00:00 AM EST active Rolling Walker 1 eCW1 ([facility]) Rolling Walker 1 UNK 07/13/2020 12:00:00 AM EST active Rolling Walker 1 eCW1 ([facility]) Rolling Walker 1 UNK 07/13/2020 12:00:00 AM EST active Rolling Walker 1 eCW1 ([facility]) Rolling Walker 1 UNK 07/13/2020 12:00:00 AM EST active Rolling Walker 1 eCW1 ([facility]) Rolling Walker 1 UNK 07/13/2020 12:00:00 AM EST active Rolling Walker 1 eCW1 ([facility]) Rolling Walker 1 UNK 07/13/2020 12:00:00 AM EST active Rolling Walker 1 eCW1 ([facility]) Rolling Walker 1 UNK 07/13/2020 12:00:00 AM EST active Rolling Walker 1 eCW1 ([facility]) Rolling Walker 1 UNK 07/13/2020 12:00:00 AM EST active Rolling Walker 1 eCW1 ([facility]) Rolling Walker 1 UNK 07/13/2020 12:00:00 AM EST active Rolling Walker 1 eCW1 ([facility]) Rolling Walker 1 UNK 07/13/2020 12:00:00 AM EST active Rolling Walker 1 eCW1 ([facility]) Rolling Walker 1 UNK 07/13/2020 12:00:00 AM EST active Rolling Walker 1 eCW1 ([facility]) Rolling Walker 1 UNK 07/13/2020 12:00:00 AM EST active Rolling Walker 1 eCW1 ([facility]) Rolling Walker 1 UNK 07/13/2020 12:00:00 AM EST active Rolling Walker 1 eCW1 ([facility]) Rolling Walker 1 UNK 07/13/2020 12:00:00 AM EST active Rolling Walker 1 eCW1 ([facility]) Triamcinolone Acetonide 0.001 MG/MG Oral Paste Triamci nolone Acetonide Dental Paste 07/10/2020 12:00:00 AM EST active MEDENT ([facility]) Betamethasone 0.5 MG/ML / Clotrimazole 1 0 MG/ML Topical Cream Clotrimazole- Betamethasone 1-0.05 % Clotrimazole-Betamethasone 1-0.05 % 06/15/2020 12:00:0 0 AM EDT 1.0 {application} active Clotri mazole-Betamethasone 1-0.05 % eCW1 ([facility]) Betamethasone 0.5 MG/ML / Clotrimazole 1 0 MG/ML Topical Cream Clotrimazole- Betamethasone 1-0.05 % Clotrimazole-Betamethasone 1-0.05 % 06/15/2020 12:00:0 0 AM EDT 1.0 {application} active Clotri mazole-Betamethasone 1-0.05 % eCW1 ([facility]) Betamethasone 0.5 MG/ML / Clotrimazole 1 0 MG/ML Topical Cream Clotrimazole- Betamethasone 1-0.05 % Clotrimazole-Betamethasone 1-0.05 % 06/15/2020 12:00:0 0 AM EDT 1.0 {application} active Clotri mazole-Betamethasone 1-0.05 % eCW1 ([facility]) Betamethasone 0.5 MG/ML / Clotrimazole 1 0 MG/ML Topical Cream Clotrimazole- Betamethasone 1-0.05 % Clotrimazole-Betamethasone 1-0.05 % 06/15/2020 12:00:0 0 AM EDT 1.0 {application} active Clotri mazole-Betamethasone 1-0.05 % eCW1 ([facility]) Betamethasone 0.5 MG/ML / Clotrimazole 1 0 MG/ML Topical Cream Clotrimazole- Betamethasone 1-0.05 % Clotrimazole-Betamethasone 1-0.05 % 06/15/2020 12:00:0 0 AM EDT 1.0 {application} active Clotri mazole-Betamethasone 1-0.05 % eCW1 ([facility]) Betamethasone 0.5 MG/ML / Clotrimazole 1 0 MG/ML Topical Cream Clotrimazole- Betamethasone 1-0.05 % Clotrimazole-Betamethasone 1-0.05 % 06/15/2020 12:00:0 0 AM EDT 1.0 {application} active Clotri mazole-Betamethasone 1-0.05 % eCW1 ([facility]) Betamethasone 0.5 MG/ML / Clotrimazole 1 0 MG/ML Topical Cream Clotrimazole- Betamethasone 1-0.05 % Clotrimazole-Betamethasone 1-0.05 % 06/15/2020 12:00:0 0 AM EDT 1.0 {application} active Clotri mazole-Betamethasone 1-0.05 % eCW1 ([facility]) Betamethasone 0.5 MG/ML / Clotrimazole 1 0 MG/ML Topical Cream Clotrimazole- Betamethasone 1-0.05 % Clotrimazole-Betamethasone 1-0.05 % 06/15/2020 12:00:0 0 AM EDT 1.0 {application} active Clotri mazole-Betamethasone 1-0.05 % eCW1 ([facility]) Betamethasone 0.5 MG/ML / Clotrimazole 1 0 MG/ML Topical Cream Clotrimazole- Betamethasone 1-0.05 % Clotrimazole-Betamethasone 1-0.05 % 06/15/2020 12:00:0 0 AM EDT 1.0 {application} active Clotri mazole-Betamethasone 1-0.05 % eCW1 ([facility]) Betamethasone 0.5 MG/ML / Clotrimazole 1 0 MG/ML Topical Cream Clotrimazole- Betamethasone 1-0.05 % Clotrimazole-Betamethasone 1-0.05 % 06/15/2020 12:00:0 0 AM EDT 1.0 {application} active Clotri mazole-Betamethasone 1-0.05 % eCW1 ([facility]) Betamethasone 0.5 MG/ML / Clotrimazole 1 0 MG/ML Topical Cream Clotrimazole- Betamethasone 1-0.05 % Clotrimazole-Betamethasone 1-0.05 % 06/15/2020 12:00:0 0 AM EDT 1.0 {application} active Clotri mazole-Betamethasone 1-0.05 % eCW1 ([facility]) Hydroxychloroquine Sulfate 200 MG Oral T ablet Hydroxychloroquine Sulfate 200 MG Oral Tablet (PLAQUENIL) Hydroxychloroquine Sulfate 200 MG Oral T ablet (PLAQUENIL) 06/02/2020 12:00:00 AM EDT 200 mg Oral a ctive Rheumatoid factor positivePositive HAYLIE (antinuclear antibody)PolyarthralgiaESR raisedMCTD (mixed connective tissue disease) Take 1 tablet by mouth Two Times Daily [facility] Rheumatoid factor positive Positive HAYLIE (antinuclear antibody) Polyarthralgia ESR raised MCTD (mixed connective tissue disease) 2 ML Sodium Hyaluronate 10 MG/ML Prefilled Syringe [Euflexxa ] Euflexxa 04/21/2020 12:00:00 AM EDT completed MEDENT ([facility]) Hydroxychloroquine Sulfate 200 MG Oral T ablet Hydroxychloroquine Sulfate 200 MG Oral Tablet (PLAQUENIL) Hydroxychloroquine Sulfate 200 MG Oral T ablet (PLAQUENIL) 03/26/2020 12:00:00 AM EDT 200 mg Oral a borted Rheumatoid factor positivePositive HAYLIE (antinuclear antibody)PolyarthralgiaESR raisedMCTD (mixed connective tissue disease) Take 1 tablet by mouth Two Times Daily [facility] Rheumatoid factor positive Positive HAYLIE (antinuclear antibody) Polyarthralgia ESR raised MCTD (mixed connective tissue disease) Sertraline 100 MG Oral Tablet [Zoloft] Zoloft 02/26/2020 12:0 0:00 AM EDT 100 mg by mouth completed <td ID="Me dicationRxNorm_2">[id number]</td><td ID="MedicationMedication_2">Zoloft</td><td ID="MedicationRoute_2">by mouth</td><td ID="MedicationRouteConcept_2">H18721</td><td ID="MedicationStartDate_2">02/26/2020</td><td ID="MedicationStopDate_2">03/23/2021</td><td ID="MedicationDosageFrequency_2">once a day</td><td ID="MedicationDuration_2">30</td><td ID="MedicationFormulaStrength_2">100 mg</td><td ID="MedicationDosageForm_2">tablet</td><td ID="MedicationDosageFormCode_2"></td><td ID="MedicationDosageDescription_2"></td><td ID="MedicationMedicationId_2">[id number]</td><td ID="MedicationAccount_2">[id number]</td><td ID="MedicationNpid_2">[id number]</td><td ID="MedicationAuthorFirstName_2">Kemi</td><td ID="MedicationAuthorLastName_2">MacQueen</td><td ID="MedicationTaxonomyCode_2">[id number]</td><td ID="MedicationTaxonomyDesc_2">Psychiatric/Mental Health</td><td ID="MedicationPhoneNumber_2">[phone]</td> [facility] ([facility]) Insurance Providers Payer name Policy type / Coverage type Policy ID Covered democrat ID Covered democrat's relationship to camacho Policy [place] Plan Information [id number] MEDICARE A [id number] Self [id number] MEDICARE A [id number] Self [id number] MEDICARE [id number] MEDICARE [id number] SP [id number] [id number] Self [id number] [place] Primary [id number] [id number] Self [id number] [place] Primary [id number] .[id number] Self [id number] [place] Primary [id number] 2.840.1.225893.3.227.99.991.718154.0 Self [id number] [place] Primary [id number] 2.840.1.797159.3.227.99.991.761504.0 Self [id number] [place] Primary [id number] 2.840.1.531412.3.227.99.991.781612.0 Self [id number] [place] Primary [id number] 2.840.1.932739.3.227.99.991.952046.0 Self [id number] [place] Primary [id number] 2.840.1.382682.3.227.99.991.003361.0 Self [id number] [place] Primary [id number] 2.0.1.076387.3.227.99.991.053826.0 Self [id number] [place] Primary [id number] 2.840.1.642429.3.227.99.991.230983.0 Self [id number] [place] Primary [id number] 2.840.1.203103.3.227.99.991.793972.0 Self [id number] [place] Primary [id number] 2.0.1.772232.3.227.99.991.038237.0 Self [id number] [place] Primary [id number] 2.840.1.467569.3.227.99.991.432293.0 Self [id number] [place] Primary [id number] Self [id number] Medicaid [place] Medigap Part B [id number] Self [id number] [place] Medicare Primary [id number] 2.16.840.1.769140.3.227.99.991.557224.0 Self [id number] [place] Medicare Primary [id number] 2.16840.1.094810.3.227.99.991.412323.0 Self [id number] [place] Medicare Primary [id number] 2.16840.1.531595.3.227.99.991.670025.0 Self [id number] [place] Primary [id number] 2.0.1.657515.3.227.99.991.675757.0 Self [id number] Medicaid [place] Medig[place] Part B [id number] Self Medicare [place] Medicare Primary [id number] Self Medicare [place] Medicare Primary [id number] 2.840.1.762047.3.227.99.991.793787.0 Self [id number] [place] Primary [id number] Self [id number] [place] Medicare Primary [id number] 2.840.1.930783.3.227.99.991.315333.0 Self [id number] [place] Primary [id number] Self [id number] [place] Medicare Primary [id number] 2.840.1.937231.3.227.99.991.180760.0 Self [id number] [place] Medicare Primary [id number] 2.16840.1.076524.3.227.99.991.004635.0 Self [id number] [place] Primary [id number] Self [id number] [place] Primary [id number] 2.16.840.1.048383.3.227.99.991.109457.0 Self [id number] [place] Primary [id number] 2.16840.1.100353.3.227.99.991.985186.0 Self [id number] [facility] [id number] SP [id number] [facility] [id number] SP [id number] [facility] [id number] SP [id number] Medicare P [id number] S [id number] MEDICAID M [id number] Self [id number] AARP U [id number] Self [id number] MEDICARE [id number] SP [id number] MEDICAID M [id number] S [id number] AARP O [id number] S [id number] MEDICAID [id number] SP [id number] [facility] [id number] SP [id number] [facility] [id number] SP [id number] MEDICARE [id number] SP [id number] [facility] MEDICAID [id number] SP [id number] V [id number] MEDICARE [id number] SP [id number] MEDICARE C [id number] S [id number] MEDICAID M [id number] S [id number] [place] [id number] SP [id number] Medicaid S UNAVAILABLE S [place] BLE Medicare P [id number] S [id number] [employer] MEDICARE [id number] SP [id number] MEDICAID [id number] SP [id number] Medicare S UNAVAILABLE S [place] B[place] MEDICARE [id number] SP [id number] [employer] MEDICARE [id number] SP [id number] MEDICARE C [id number] S [id number] [employer] MEDICARE O [id number] S [id number] ANSI-Medicaid [id number] ANSI-Medicare Part B [id number] ANSI-Medicare Part B [id number] ANSI-Medicare Part B [id number] ANSI-Medicare Part B [id number] ANSI-Medicaid [id number] Medicare Dme [facility] Part B [id number] Self [id number] ANSI-Medicare Part B [id number] ANSI-Medicaid [id number] ANSI-Medicare Part B [id number] ANS-Medicaid [id number] ANSMedicare Part B [id number] ANSI-Medicare Part B [id number] Medicare Dme Supplies Medigap Part B [id number] Self [id number] Medicare Dme Supplies Medigap Part B [id number] Self [id number] Medicaid [place] Medigap Part B [id number] Self [id number] Medicare - [place] Medicare Primary [id number] Self [id number] Medicare Dme Supplies Medigap Part B [id number] Self [id number] Medicare Dme Supplies Medigap Part B [id number] Self [id number] Medicare Dme Supplies Medigap Part B [id number] [facility] OPTIONS [id number] SP [id number] MEDICAID [id number] SP [id number] ANSI-Medicaid [id number] ANSI-Medicare Part B [id number] Medicaid [place] Medigap Part B [id number] Self [id number] Medicare - [facility] Medicare Primary [id number] Self 1 [id number] [facility] [id number] Problems, Conditions, and Diagnoses Code Display Name Description Problem Type Effective Dates Data Source(s) F41.1 Generalized anxiety disorder Generalized Anxiety Disor ino Condition 06/16/2021 12:00:00 AM EDT [facility] ([facility]) F25.0 Schizoaffective disorder, bipolar type S chizoaffective Disorder, Bipolar type Condition 06/16/2021 12:00:00 AM EDT [facility] ([facility]) I10 [id number] Essential hypertension Problem 05/25/2021 12 :00:00 AM EDT eCW1 ([facility]) K14.6 [id number] Tongue pain Problem 05/25/2021 12:00:00 AM E DT eCW1 ([facility]) [id number] Pure hypercholesterolemia Pure hypercholesterolemia Pr oblem 10/05/2020 12:00:00 AM EST [facility] ([facility] ) Surgeries/Procedures Procedure Description Date Indications Data Source(s) [facility] Telemed E/M Lvl 3--Est pt 06/16/2021 12:00:00 AM EDT - 06/16/2021 12:00:00 AM EDT [facility] ([facility]) MHC Telemed E/M Lvl 3--Est pt 06/16/2021 12:00:00 AM E DT [facility] ([facility]) Extended Individual Psychotherapy - 45 min 06/11/2021 12:00:00 AM EDT - 06/11/2021 12:00:00 AM EDT [facility] ([facility]) Extended Individual Psychotherapy - 45 min 12:00:00 AM EDT [facility] ([facility]) Extended Individual Psychotherapy - 45 min 05/20/2021 12:00:00 AM EDT - 05/20/2021 12:00:00 AM EDT [facility] ([facility]) Extended Individual Psychotherapy - 45 min 12:00:00 AM EDT [facility] ([facility]) MHC Telemed E/M Lvl 3--Est pt 04/29/2021 12:00:00 AM EDT - 04/29/2021 12:00:00 AM EDT [facility] ([facility]) Telemed A/O 30" 04/28/2021 12:00:00 AM EDT [facility] ([facility]) MHC Telemed E/M Lvl 3--Est pt 04/28/2021 12:00:00 AM E DT [facility] ([facility]) MHC Telemed E/M Lvl 3--Est pt 04/14/2021 12:00:00 AM EDT - 04/14/2021 12:00:00 AM EDT [facility] ([facility]) MHC Telemed E/M Lvl 3--Est pt 04/14/2021 12:00:00 AM E DT [facility] ([facility]) Extended Individual Psychotherapy - 45 min 03/26/2021 12:00:00 AM EDT - 03/26/2021 12:00:00 AM EDT [facility] ([facility]) Extended Individual Psychotherapy - 45 min 12:00:00 AM EDT [facility] ([facility]) OFFICE OUTPATIENT VISIT 15 MINUTES 03/03/2021 12:00:00 AM EDT [facility] ([facility] ) ARTHROCENTESIS ASPIR&/INJECTION MAJOR JT/BURSA 021 12:00:00 AM EDT [facility] ([facility] ) [facility] Telemed E/M Lvl 3--Est pt 12/23/2020 12:00:00 AM EDT - 12/23/2020 12:00:00 AM EDT [facility] ([facility]) [facility] Telemed E/M Lvl 3--Est pt 12/23/2020 12:00:00 AM E DT [facility] ([facility]) Extended Individual Psychotherapy - 45 min 12/21/2020 12:00:00 AM EDT - 12/21/2020 12:00:00 AM EDT [facility] ([facility]) Extended Individual Psychotherapy - 45 min 12:00:00 AM EDT [facility] ([facility]) ARTHROCENTESIS ASPIR&/INJECTION MAJOR JT/BURSA 021 12:00:00 AM EDT [facility] ([facility] ) ARTHROCENTESIS ASPIR&/INJECTION MAJOR JT/BURSA 021 12:00:00 AM EDT [facility] ([facility] ) Extended Individual Psychotherapy - 45 min 11/27/2020 12:00:00 AM EDT - 11/27/2020 12:00:00 AM EDT [facility] ([facility]) Extended Individual Psychotherapy - 45 min 12:00:00 AM EDT [facility] ([facility]) ARTHROCENTESIS ASPIR&/INJECTION MAJOR JT/BURSA 021 12:00:00 AM EDT [facility] ([facility] ) RADIOLOGIC EXAM KNEE COMPLETE 4/MORE VIEWS 11/13/2020 12:00:00 AM EDT [facility] ([facility] ) RADIOLOGIC EXAM KNEE COMPLETE 4/MORE VIEWS 11/13/2020 12:00:00 AM EDT [facility] ([facility] ) Extended Individual Psychotherapy - 45 min 11/10/2020 12:00:00 AM EDT - 11/10/2020 12:00:00 AM EDT [facility] ([facility]) Extended Individual Psychotherapy - 45 min 12:00:00 AM EDT [facility] ([facility]) [id number]"Psychotherapy 12:00:00 AM EST - 10/23/2020 12:00:00 AM EST [facility] ([facility]) [id number]"Psychotherapy 10/23/2020 12:00:00 AM EST [facility] ([facility]) Extended Individual Psychotherapy - 45 min 10/05/2020 12:00:00 AM EST - 10/05/2020 12:00:00 AM EST [facility] ([facility]) Extended Individual Psychotherapy - 45 min 12:00:00 AM EST [facility] ([facility]) X-Ray Hips Bilateral With Pelvis Minimum 5 Views 10/02 12:00:00 AM EST [facility] ([facility]) MHC Telemed E/M Lvl 3--Est pt 09/16/2020 12:00:00 AM EST - 09/16/2020 12:00:00 AM EST [facility] ([facility]) MHC Telemed E/M Lvl 3--Est pt 09/16/2020 12:00:[address] [facility] ([facility]) Extended Individual Psychotherapy - 45 min 08/27/2020 12:00:00 AM EST - 08/27/2020 12:00:00 AM EST [facility] ([facility]) Extended Individual Psychotherapy - 45 min 0 12:00:00 AM EST [facility] ([facility]) Extended Individual Psychotherapy - 45 min 08/07/2020 12:00:00 AM EST - 08/07/2020 12:00:00 AM EST [facility] ([facility]) Extended Individual Psychotherapy - 45 min 0 12:00:00 AM EST [facility] ([facility]) MHC Telemed E/M Lvl 3--Est pt 08/05/2020 12:00:00 AM EST - 08/05/2020 12:00:00 AM EST [facility] ([facility]) MHC Telemed E/M Lvl 3--Est pt 08/05/2020 12:00:[address] [facility] ([facility]) TEMPMHCTelemed 30" Psychotherapy 020 12:00:00 AM EST - 06/29/2020 12:00:00 AM EST [facility] ([facility]) TEMPMHCTelemed 30" Psychotherapy 06/29/2020 12:00:00 A M EST [facility] ([facility]) Extended Individual Psychotherapy - 45 min 06/26/2020 12:00:00 AM EDT - 06/26/2020 12:00:00 AM EDT [facility] ([facility]) Extended Individual Psychotherapy - 45 min 0 12:00:00 AM EDT [facility] ([facility]) Immunization: Flublok Quadrivalent (18 years & older) 0.5mL IM (Influenza) 06/16/2020 12:00:00 AM EDT eCW1 ([facility]) Extended Individual Psychotherapy - 45 min 06/09/2020 12:00:00 AM EDT - 06/09/2020 12:00:00 AM EDT [facility] ([facility]) Extended Individual Psychotherapy - 45 min 0 12:00:00 AM EDT [facility] ([facility]) Extended Individual Psychotherapy - 45 min 05/26/2020 12:00:00 AM EDT - 05/26/2020 12:00:00 AM EDT [facility] ([facility]) Extended Individual Psychotherapy - 45 min 0 12:00:00 AM EDT [facility] ([facility]) MHC Telemed E/M Lvl 3--Est pt 05/21/2020 12:00:00 AM EDT - 05/21/2020 12:00:00 AM EDT [facility] ([facility]) MHC Telemed E/M Lvl 3--Est pt 05/21/2020 12:00:00 AM E DT [facility] ([facility]) ARTHROCENTESIS ASPIR&/INJECTION MAJOR JT/BURSA 12:00:00 AM EDT [facility] ([facility]) ARTHROCENTESIS ASPIR&/INJECTION MAJOR JT/BURSA 12:00:00 AM EDT [facility] ([facility]) ARTHROCENTESIS ASPIR&/INJECTION MAJOR JT/BURSA 12:00:00 AM EDT [facility] ([facility]) Results ID Date Data Source [id number] 04/29/2021 12:33:00 AM EDT [facility] Name Value Range Interpretation Code Description Data Paulina rce(s) Supporting Document(s) SARS coronavirus 2 RNA [Presence] in Res piratory specimen by NIC with probe detection NEGATIVE [facility] This lab was ordered by [facility] a nd reported by [facility]. ID Date Data Source [id number] 03/25/2021 05:54:29 PM EDT [facility] Name Value Range Interpretation Code Description Data Paulina rce(s) Supporting Document(s) Progress Note [facility] DITLJj8mTwWKZlWn22/ECNiiCSDzw7KqXEsaXVw5INmsKFIhY7CuRRW4aV9uNKJ4SJcNXsQqEmNbTeH9 [facility] [file] ICAgICAgICAgICAgICAgICAgICAgICAgICAgICAgICAgICAgICAgICAgICAgICAgICAgICAgICAgICAg KZDbLLOxMJXvNTGvVXSpDECeKHZrVPCaXKBaRKJnLFJpWPVrBPAaUV2BVABcZEKmMOLcJXWuPGNrQOHn ICAgICAgICAgICAgICAgICAgICAgICAgICAgICAgIC YzHERbFQRdEEVqMWYtEJQfNRZpOJOsSJIuZPSdMAAzEHKiWXDdYIXdUMVmFHXnRSSgER8VHPXaCZSfNO AgICAgICAgICAgICAgICAgICAgICAgICAgICAgICAgICAgICAgICAgICAgICAgICAgICAgICAgICAgIC AgICAgICAgICAgICAgICAgICAgICAgICAgICAgICAg MY8NQDTsVIIuPXNaBXBjWUGaBBAuUVCuUKBdSFJcXIExKHAlQHLuGEOeITMpGSBaYSGcGUXcVSSyBUJm SAHpYXXtIYSdOUNeOPTqPCCgXPCnZVCrBKPyZJGgRJGqHNKtEURfQMQaEN6EBNVmTLJsJPCzTBAyRLSl ICAgICAgICAgICAgICAgICAgICAgICAgICAgICAgIC MlHURgBYIaBLToUJEjHZPsNHNnOOWyQLDdDIYyHOOrBOTcCYIgGMRwWJAqQTQuXOWwFUEdYR0GJKByTV AgICAgICAgICAgICAgICAgICAgICAgICAgICAgICAgICAgICAgICAgICAgICAgICAgICAgICAgICAgIC AgICAgICAgICAgICAgICAgICAgICAgICAgICAgICAg EWBxVK9PEICoVBRzDXNnOJSuHIBnIMKrOTKhDUGkPIXpHOHqUJSeMWSeGBEiUCRhPBSpLSBzHMTzKGRc NVVrPIMwSRRlRFHlMKAhCMUzGMBrSUZjKWWkYPOrHSBnXGJlLJHsRXVuATLsPD7FUJCeLLDgXXIoTJRd ICAgICAgICAgICAgICAgICAgICAgICAgICAgICAgIC HsZJXaPRIwUYCmHCGhCAFdOBYkHDHnUTUdDBNaWIAmVXCwBYIuKACqAQVhZJZdUXOlKBFcSOFiVO7OZH AgICAgICAgICAgICAgICAgICAgICAgICAgICAgICAgICAgICAgICAgICAgICAgICAgICAgICAgICAgIC AgICAgICAgICAgICAgICAgICAgICAgICAgICAgICAg AYTbBSGlOX9VSJEhWTMkXBXjUYEdHHPzRPPfFBZdPGTgQGLiYVPzRYLnITDmLCWnZROcQIDoBKIdSHOr GRMzCUEqLGFaMJXqBYUfUCRlWMNfDLGxMBRwKHDxLBUnTCUjQGSbSREwRQVmOVPhCN5WNG53iFElq7V7 BDNcBG1jfvy/Ll4YGNmfptJndPDsTA3ZDmBpIT1ptn 1PXtUyHE9xau2ETBmJIkSwB5P0iPNuGUOoEOTUTyYwB06mVOioBc70IXbyDMXqQiVfFZt5Ov9XJbAbA0 ffERUjLhL3XDXsPmQ2KKIyOiC5AANjZtMlQOKfPCRdVNTzXCNOLAT7DJCqNxWvLmKuTNRgCQufINPWYB 4CBdHqU1XmbJ70NYgRBj6+DQplbmRvYmoNCjMzIDAg r7HpPQa2UK0IVYZrSpyzn4JbLhYeTRBVNIvtPG0UUCP0XMW6SYDrQj5NPJQpA409ooEsND8KGv4AMsOc CN1iqh3NXhWoYCJxTbxWJpo2EIpwKA6AdTGgSAfKkk1gziLlvsNOv6PrtmVukIFFn67vLbP8qYDuYApj USNvGVIyCn0gRa2cGDUaVXA8EwShARIKNQ8WQZLdLB FwzNHoSNCsBFMQVZ0OYNceEIK9RDJdqzJynZUhSOzfMP1QKUPyurPtPoQdEFCBFUb+Hq9EXS8sc5VrIL cdPLBnAH6zfg4PCEePVdOmE7Y8fFFlQ6J6KUhlDf9WWONsRBFiKcUbUSKSXSqrFY1FJD2uckO0NO4IhM CzSKCoLMFevOBiXRo1S48avZRpBKarSW0IXCE+Jennifer+ As2LKLDeSHJxYKPuNzTdCBICJyIeK7TkB4EPt7KwV1YdKZ94yVjoiqXvINblSE0ECA4cEUOuEJNSIT0S dDLtqX0osbToLmKyDKYMLwZpH14xaOOtASMmYPTiDYOcBv4FWBXlP4MqjbWwvKirscXgRQKmUYKPBT0P MHrjhpWdjMCgwKetCH97kWskYB7JAd2BAlUkQY3lzu 8UbYVyOl4XSBAtFb0OUZHhOZElHCOeQWG8EYHyUqBdFXdlJUUcQTNuPJP2BQXhKKNlHR5CKtOeNIUsCl ggZehvRKDsRNTnbk9NRYWnUFSkQBd4DaBwXYZgYNSqOUcrQKHkLQMrBLS8FSRaPPEjYU8FPkJiWKLtFV Y8BDrsCFWzJOXiql1SCINjTWOdWAFjLQGqHJDkBPKq PPpgUBWsVJQ6CTb2QVBpZHFhAM4ILjMuENXtNBqtBckuUESnBWYmhd5CIDWiZCOvDCH2SKIrIHMnIHVd MPzmTXWwDHKgOjn1QXEcSEYgUU5SVtCsPWIqTDS5NOBpMCWjVLXmeq9UHMQuZUSeZls9AVZyBPBeISSm YSstGCOfBKA7RMcaUJAsSWKzZQ7YUtDlIGGkTDHjBF KyPPGrSZImmn9HLIAvCKNsMKG9UBGxTLUrVCDhIEfjNARmSPB0FPq5KLElAFIgWS9CPeHuZTFkFqHnUR GyXRLdVXAckn9SGTHoUUWcReO3KIBtPOLuADKyMIwiJKPlISUvCHYeERMgJSSjCN9LXgXkHPGfFeOkUS PjIWCtSFJius7OEBSeJNPnJOZkEoGeYOMvBOCyCJvf RWDsCTO6ErVrXYUlKGAuML6AQrXsWZVxFcKeWYQoDPMqTNCygd4NFHDiVRSjBNZ8XWVhXLIuFXHrALgi LFZaQUS5WHX4EPGqOIHjKB5HRcYcTEVcHmM8UMOsRIZtPABphh2YVRFxYWWqOdO6ITThAYBtHRGbXFij WEMwXFK2SYPjVAIbDAFsMY3NDaMiPIPtKqp6BKekMR OdGSNwyn6JGUWhHNXlEvd6QVGkBIWiWUQoUDouHYExHAN8EZF9ZLWxHZYmUL0FQyKhLWCdHqt7UWYeRP BaKOLtof3ZBYRbBTFjAAo8BVZtXNTsLPPwBUgoEVHjQVGaAJDnUZBnLOCmCM4XWzPrXWYkPCVwACeoBQ HvTDDgvw7NoDCyvPwodh2YSSqRWf5SjLhxCRY8XWlr Tq5vePQnHAErZGKINs0BkgHoGGYnKQKIGQbwIYOzBUT8IuToTFVnIpAwHEU3N8P2VbgcM3NzTpj5IdBn GpZoPoO2QLb3RfXzBXAuLMS4PuMjSQZpMYXxVfYxTWU9IuY7SPS+UO5hGGj+Yk9Gi8GyntZ4ofHaXBu2 DIH6My0BRPCYD7FIUh== ID Date Data Source [id number] 12/12/2020 04:46:15 PM EDT [facility] Name Value Range Interpretation Code Description Data Paulina rce(s) Supporting Document(s) Progress Note [facility] YDBTLn4tEzERRnDt12/KEEkqZPDpw4XdFChlVHk7MCeeEOBwT0WhLOY2xG9lQND7MAiEAzFfHqDgMJJ4 lbm [file] ICAgICAgICAgICAgICAgICAgICAgICAgICAgICAgICAgICAgICAgICAgICAgICAgICAgICAgICAgICAg ICAgICAgICAgICAgICAgICAgICAgICAgDQogICAgIC AgICAgICAgICAgICAgICAgICAgICAgICAgICAgICAgICAgICAgICAgICAgICAgICAgICAgICAgICAgIC AgICAgICAgICAgICAgICAgICAgICAgICAgICAgICAgICAgDQogICAgICAgICAgICAgICAgICAgICAgIC AgICAgICAgICAgICAgICAgICAgICAgICAgICAgICAg ICAgICAgICAgICAgICAgICAgICAgICAgICAgICAgICAgICAgICAgICAgICAgDQogICAgICAgICAgICAg ICAgICAgICAgICAgICAgICAgICAgICAgICAgICAgICAgICAgICAgICAgICAgICAgICAgICAgICAgICAg ICAgICAgICAgICAgICAgICAgICAgICAgICAgDQogIC AgICAgICAgICAgICAgICAgICAgICAgICAgICAgICAgICAgICAgICAgICAgICAgICAgICAgICAgICAgIC AgICAgICAgICAgICAgICAgICAgICAgICAgICAgICAgICAgICAgDQogICAgICAgICAgICAgICAgICAgIC AgICAgICAgICAgICAgICAgICAgICAgICAgICAgICAg ICAgICAgICAgICAgICAgICAgICAgICAgICAgICAgICAgICAgICAgICAgICAgICAgDQogICAgICAgICAg ICAgICAgICAgICAgICAgICAgICAgICAgICAgICAgICAgICAgICAgICAgICAgICAgICAgICAgICAgICAg ICAgICAgICAgICAgICAgICAgICAgICAgICAgICAgDQ ogICAgICAgICAgICAgICAgICAgICAgICAgICAgICAgICAgICAgICAgICAgICAgICAgICAgICAgICAgIC AgICAgICAgICAgICAgICAgICAgICAgICAgICAgICAgICAgICAgICAgDQogICAgICAgICAgICAgICAgIC AgICAgICAgICAgICAgICAgICAgICAgICAgICAgICAg ICAgICAgICAgICAgICAgICAgICAgICAgICAgICAgICAgICAgICAgICAgICAgICAgICAgDQogICAgICAg ICAgICAgICAgICAgICAgICAgICAgICAgICAgICAgICAgICAgICAgICAgICAgICAgICAgICAgICAgICAg ICAgICAgICAgICAgICAgICAgICAgICAgICAgICAgIC AoCIi2L4olQVYuEMOdTR3pXAk6Fi9+AKyXNhHpMJL5moTnxB2SEQ3on3ZgVRzjEIDnh4YuYZq8WG5VEM JsDMzkCO9IXBpftn8PALBhRLKilHKSn3zlAbSdIKT9RWGqVxhxJX7JEIXaC0xwgyUgNULgFXBNHBfnZV BSIDkgMCBSIDExIDAgUiAxMyAwIFIgMTUgMCBSIDE3 VNWgTxTqLQYwMQUcKS7WXGJkO186khMsXC1HNz2ARoJcSZ8hip8YOyVeQLUtQzaHBat5IUepQK3OwAAf tCWkBATdKRUWCfRzD8xnz9YgAsNyADWYGLrzOR8Vd2ApwARdLTx+Dp2WRX3sa6FqYLjlBLMnHL6mbs2O GDrETtMoD5IkmJidFOPrb9caLKErKG1xrKMcZFW9NQ tmqYKTOUPrRG1hGBBJXZYteBH0GqEdCaUlIMLpLeoiSPQJPUzBSoBfD6Bpd9BzHpI2FFWfBgGxCUyiMV CxTiR2WL85aTqwSL6BJNGjOXRiWA33SDOlYRBkVk6XQi0OSpLmUA0otm3CKvRnAXZbJyuWDrc8SVbvMG 5PnUQkW7QpbSVkm6lTNiCjH0RSQSZwHNRgTb6QHXZk BnJbYIMmTNadTZ7hLLLfBDMSmOtdrtY4QH2GYF8jijCtZA9QYcKoNu9aEg1TTuJgS4AzW7ZxOAIdGLRM TRsmVF5NDBzfMM2oAR3Ns8USoRWzzM8udp3TPTWiDBJhQivtuf2MFxqfK3M3oFosJERsNzAhZEOGRHaa NH5OLCYdQUN0BAVaYvYwFHUHBuMvQ55qIC5MG7Zfx2 7yZrM6ADGzXiCmRKyeZE01oOyfjlXrxOQbbDwiZN0SHy5+DQplbmRvYmoNCnhyZWYNCjAgMzYNCjAwMD WeAPAqKFInHnB6UxGjHu4LWFZjIYWwOZYcCtSlNBRnDSDdRGwqIEDgFSK7UDM7IIImYIHcJX2HRiYzLS HpGsf8ZQhtLQAiKGTiym9NKWAiKSTrNMW4FgQrRENg TLZiQWdaXZGdSXYkHeWgVKKrHZHdBW9VVzGbCYOyYTS5NCGfSAZhKZWlmc1NZINkSVAwPqhzEUNpSBXj VQZyZGilSUDdOGC4ISSuQHXaGDPbWU2BAhUzEVCtVWj1XWZmZELxODLeam5OTYSpAIBpACEeQCOpVLVz CILtXSdqGAZzCMXgGWI6CGFrVIPnPU9XPgVyTZHgUI R3YtUyRAIuVFGygz1EQUJdVZPzLTK5EHNqMMYnZDFxBOycKSZaSAF3KCK4CPDcDJDlDP9TIsQkUJAkXG joQWWpHNXnTBJyli6ACSYuXXXcXJW3RcGoYDTaLUCaSCmbQJSrPZJrLAg8QPRvSLXtSJ3KRpZkKKSbXi Y5AATnNWFfAKXeog0UECEtWJGoErI4EPQoULAvHJNi LKmsMQJiPTAiQdx7WXEiYSZtHO5QVuOnMJTzKfU2TTwuKLDlMVDjga5RWKUbMGRcMcn4VGMvVBHdUFEl ABbdXVBbARU8OMB0PCYgXFGiPH9ZOxZeOQVdVmLrWGFcWEEyDDMqsm3SZJVrUXJaSHX4JBQkTZQuMGAx BYsuXDZdBJK2GQm1NYUnRFQhZD2YAxLkEZEpFtG0PV PzXBBgVBHndf1HNXYlOVTeDzR2JKGtLARbCYHsBDudLOUgAVN2BBFuAXDkBFBkPP1WBmRiOZIuVzj6EJ BmDNFwTIZhyc4ZEOApEKHaZmg9GmNnPWZqQXRbALexYUNgGFN2PcT9OXDsRJWuNU7FUaFfQROyBbg0Yj BoCIYwUPKbui7EARJdZVIvLLsbHfPpEIJgGSBlBUli TFXyXFK7UMS2MWDjQTOzTL2FFtLwJPwwOJSHSpi3FMpsH9i2VZKtDb3OK9Jry0JkFnFeZQJKBPgkTQ5n afRfPYYxUy6QQ7yUIsxqTSP2QOYaCEMzApR6IavaLcacD6KeEHCuUnEmSFN8EV6wZHO5CqSbRPNtBOEk PumiCUMkSUFzQrF0IwK2UGGoXmO8HcHuUV8LGr5MZgK8RCX0pBNoZo7NMLBsOCVBLoQrJU1OMYq= ID Date Data Source [id number] 10/30/2020 12:00:[address] [facility] Carlos Miller MD Patient Name: NIGEL [id number] [facility] Date of : 1960[place] [address] Date of Exam: 10/30/2020#: Fax: [phone] EXAM: [...] reduction inradiation.Km Howell, FRANSICO/jmcThank you for referring INGEL SEVILLA to our office. Electronically Signed - KM HOWELL MD 10/30/20 13:06 Name Value Range Interpretation Code Description Data Paulina rce(s) Supporting Document(s) ID Date Data Source [id number] 10/30/2020 12:00:00 AM EST [facility] Carlos Miller MD Patient Name: NIGEL [id number] [facility] Date of : 1960[place] [address] Date of Exam: 10/30/2020#: Fax: [phone] EXAM: [...] 10/08/2020 12:00:00 AM EST eCW1 ([facility]) Name Value Range Interpretation Code Description Data Paulina rce(s) Supporting Document(s) 26.2 30.0-100.0 TOTAL 25(OH) VITAMIN D eC W1 ([facility]) ID Date Data Source TSH 10/08/2020 12:00:00 AM EST eCW1 ([facility]) Name Value Range Interpretation Code Description Data Paulina rce(s) Supporting Document(s) 4.340 0.358-3.740 THYROID STIMULATING HORM ONE eCW1 ([facility]) ID Date Data Source LIPID PANEL (CARDIAC RISK) 10/08/2020 12:00:00 AM EST eCW1 ( [facility]) Name Value Range Interpretation Code Description Data Paulina rce(s) Supporting Document(s) Cholesterol in HDL [Moles/volume] in Serum or Plasma 68 >40 HDL CHOLESTEROL eCW1 ([facility]) Triglyceride [Mass/volume] in Serum or Plasma by calculation 191 <150 TRIGLYCERIDES LEVEL eCW1 ([facility]) Cholesterol [Moles/volume] in Serum or Plasma 208 <200 CHOLESTEROL LEVEL eCW1 ([facility]) 140 NON-HDL-C eCW1 ([facility]) 3.058 <5 CHOLESTEROL RISK RATIO eCW1 ([facility]) Cholesterol in LDL [Mass/volume] in Serum or Plasma by calculation 102 <100 LDL CHOLESTEROL eCW1 ([facility]) ID Date Data Source Comprehensive Metabolic Profile (CMP) 10/08/2020 12:00:00 AM EST eCW1 ([facility]) Name Value Range Interpretation Code Description Data Paulina rce(s) Supporting Document(s) 0.76 0.55-1.30 CREATININE FOR GFR eCW1 ([facility]) 87 70-100 GLUCOSE, FASTING eCW1 ([facility]) 14 7-18 BLOOD UREA NITROGEN eCW1 ([facility]) 3.8 3.5-5.1 POTASSIUM SERUM eCW1 ([facility]) 102 98-107 CHLORIDE LEVEL eCW1 ([facility]) > 60.0 >45 GLOMERULAR FILTRATION RATE eCW 1 ([facility]) 141 136-145 SODIUM LEVEL eCW1 ([facility]) 10.0 8.8-10.2 CALCIUM LEVEL eCW1 ([facility]) 32 21-32 CARBON DIOXIDE LEVEL eCW1 ([facility]) 19 7-37 AST/SGOT eCW1 ([facility]) 28 12-78 ALT/SGPT eCW1 ([facility]) 133 45-117 ALKALINE PHOSPHATASE eCW1 ([facility]) 0.3 0.2-1.0 BILIRUBIN,TOTAL eCW1 ([facility]) 7.5 6.4-8.2 TOTAL PROTEIN eCW1 ([facility]) 1.0 1.2-2.2 ALBUMIN/GLOBULIN RATIO eCW1 ([facility]) 3.8 3.2-5.2 ALBUMIN eCW1 ([facility]) ID Date Data Source [id number] 06/10/2020 09:13:13 AM EDT [facility] Name Value Range Interpretation Code Description Data Paulina rce(s) Supporting Document(s) Progress Note [facility] YJLWYg0uRxIZJiTl89/UIWjrQWZxx8MgTVjqVSq6YGomSAZiO4WqJDW5iA6iMZQ5WVtVCoQaWnVvMQT5 lbm [file] fRsx/jqF3s7BdzHehNWGwgTUNcDVMRvSqTMHXhQAB27xSGbRH/iobCmt33gTGy/Sofía+AxccY3Eu3/Vlb pe20vjsNB1J+Pvmb3/tzB38OS/4pF5fC9GDU7gt8UmMWBjWItfrsWvRtbYUoOmVDYlp3GsRWhvPUe8OR yrOKBuN1Y2aLPpVUUxJT4HSEPpOM9EQNRixoGqYeWf KWPZZxVcPKUzPbFsr3LtQ2OmCXBgCVQTXBxrADFzV04nYJfkBz98ARjmEVUpBeIyEYj4Lj7AAbXiELNf E14gzELtyZIhSBPqJLNPRFcoPTUdQ4ksb9LiJLz8UA7HAN5DglMsk9BrfzPkE3gyP9FQCC9ZONVgW5AD A0IfW8taXjAfm1HyA8vxSbXpx6IlPj7MVrPfYg3ZHa LnSN2eko6CJJFtULQrZoxFUhPdKPzyGbfjaIPzLQ3EbZR6KLGgR71eRONfFLByW1YpUIKaWxb+Pg0KIC LoqZTxEN7OEtnV3H1xq7yGJm9+aK7LeA74VMew3rTlFnDd9vvZH9uTQd0C9d+9TUrzrWGd5YP3f/1RfE ki1kjWVhv8R/qMBRyX4TsdhCx7d+U49Z/nqLGMaE4w nX8nc78A1DspdG/+zyv13nfes4xq3Dx746uhP4B+mk4L5/qi3xbtSWtb1Vbk73kxRX4dpycpw/HH9Cyf p0W+mI+PLo+LzX+8y8JBrGNfljEvqBc7bIHyH8geV3/45J7FP24u1daoZ8YhCH9Zf8dHQDwQT8fpXlTR Zx++addi/Yey6mvewgVYFlvsXh0JmZCgOIFzp+tVqve Kqj6GwuKkZJXFHCYgQMsD0Dcv7ru/YvpoiOFOKAZtzRhCaIfQoCi/zi53rwednV0RTG/xLBeZFg6BQRQ cHFuIm0ehDBhmi5SozxqTzmkIxh+Ja/HDEpzBVn1au7SJDj1l5HCdSP3kYW8HnJhLHsf0TFw2OSqR4C [file] YNCg== ID Date Data Source PAP REQUEST FOR SERVICE 06/09/2020 12:52:46 PM EDT eCW1 ([facility]) Name Value Range Interpretation Code Description Data Paulina rce(s) Supporting Document(s) Laboratory studies (set) PAP REQUEST FOR SERVICE eCW1 ([facility]) ID Date Data Source [facility] Hema Screening Bilateral (Ultrasound if Indicated ) (3D Mammo) 06/09/2020 10:51:08 AM EDT eCW1 ([facility]) Name Value Range Interpretation Code Description Data Paulina rce(s) Supporting Document(s) [facility] Hema Screening Bilat eral (Ultrasound if Indicated) (3D Mammo) eCW ([facility]) ID Date Data Source [id number] 05/13/2020 08:45:51 AM EDT [facility] Patient History Medical History:Hip repl acement 2018 leftacid reflux disease arthrisits thyroid conditionMental health issues Family History:Social/Personal History: Smoking Status: never smokerCurrent Problems: Other and unspecified diseases of the oral soft tissues (ICD-528.9) ([id number]-U87.89)Current Medications: AMOXICILLIN 500 MG CAPS (AMOXICILLIN) 4 [...] appts. Chart Notes:austen (May 13 2020 10:09AM): [facility](-). CC: none. Reviewed Xrays. Exam: caries detected. OCS: WNL, IO/ EO completed, No significant hard findings upon clinical exam.Additional PPE requirements due to COVID-19 in the dental setting, N95, surgical mask, hair covering, gown and shieldPt was cooperative.. OHI given Referral: N/A NV: Yday Giles by austen (05/13/2020 10:09 AM): ; alfonso (May 13 2020 9:43AM): [facility]- no changescc-I keep getting sores which come [...] leted Unknown if ever smoked [facility] ([facility]) Smoking 06/11/2021 12:00:00 AM EDT Unknown if ever smoked comp leted Unknown if ever smoked [facility] ([facility]) Smoking 05/25/2021 12:00:00 AM EDT Never Smoker completed Never S moker eCW1 ([facility]) Smoking 05/25/2021 12:00:00 AM EDT Never Smoker completed Never S moker eCW1 ([facility]) Smoking 05/25/2021 12:00:00 AM EDT Never Smoker completed Never S moker eCW1 ([facility]) Smoking 05/25/2021 12:00:00 AM EDT Never Smoker completed Never S moker eCW1 ([facility]) Smoking 05/25/2021 12:00:00 AM EDT Never Smoker completed Never S moker eCW1 ([facility]) Smoking 05/25/2021 12:00:00 AM EDT Never Smoker completed Never S moker eCW1 ([facility]) Smoking 05/25/2021 12:00:00 AM EDT Never Smoker completed Never S moker eCW1 ([facility]) Smoking 05/20/2021 12:00:00 AM EDT Unknown if ever smoked comp leted Unknown if ever smoked [facility] ([facility]) Smoking 04/29/2021 12:00:00 AM EDT Unknown if ever smoked comp leted Unknown if ever smoked [facility] ([facility]) Smoking 04/26/2021 12:00:00 AM EDT Never Smoker completed Never S moker eCW1 ([facility]) Smoking 04/26/2021 12:00:00 AM EDT Never Smoker completed Never S moker eCW1 ([facility]) Smoking 04/26/2021 12:00:00 AM EDT Never Smoker completed Never S moker eCW1 ([facility]) Smoking 04/26/2021 12:00:00 AM EDT Never Smoker completed Never S moker eCW1 ([facility]) Smoking 04/26/2021 12:00:00 AM EDT Never Smoker completed Never S moker eCW1 ([facility]) Smoking 04/14/2021 12:00:00 AM EDT Unknown if ever smoked comp leted Unknown if ever smoked [facility] ([facility]) Smoking 03/26/2021 12:00:00 AM EDT Unknown if ever smoked comp leted Unknown if ever smoked [facility] ([facility]) Alcohol intake 03/25/2021 12:00:00 AM EDT Current non-d kenan of alcohol (finding) completed Current non-drinker of alcohol (finding) [facility] Tobacco use and exposure 03/25/2021 12:00:00 AM EDT Never used co mpleted Never used [facility] Smoking 03/25/2021 12:00:00 AM EDT Never smoker completed Never s [facility] Smoking 03/10/2021 12:00:00 AM EDT Never Smoker completed Never S moker eCW1 ([facility]) Smoking 03/10/2021 12:00:00 AM EDT Never Smoker completed Never S moker eCW1 ([facility]) Smoking 03/10/2021 12:00:00 AM EDT Never Smoker completed Never S moker eCW1 ([facility]) Smoking 03/03/2021 12:00:00 AM EDT Non Smoker completed Non Smoke r [facility] ([facility]) Smoking 12/23/2020 12:00:00 AM EDT Unknown if ever smoked comp leted Unknown if ever smoked [facility] ([facility]) Smoking 12/21/2020 12:00:00 AM EDT Unknown if ever smoked comp leted Unknown if ever smoked [facility] ([facility]) Alcohol intake 12/12/2020 12:00:00 AM EDT Current non-d kenan of alcohol (finding) completed Current non-drinker of alcohol (finding) [facility] Smoking 11/27/2020 12:00:00 AM EDT Unknown if ever smoked comp leted Unknown if ever smoked [facility] ([facility]) Smoking 11/10/2020 12:00:00 AM EDT Unknown if ever smoked comp leted Unknown if ever smoked [facility] ([facility]) Smoking 10/23/2020 12:00:00 AM EST Unknown if ever smoked comp leted Unknown if ever smoked [facility] ([facility]) Smoking 10/07/2020 12:00:00 AM EST Never Smoker completed Never S moker eCW1 ([facility]) Smoking 10/07/2020 12:00:00 AM EST Never Smoker completed Never S moker eCW1 ([facility]) Smoking 10/07/2020 12:00:00 AM EST Never Smoker completed Never S moker eCW1 ([facility]) Smoking 10/07/2020 12:00:00 AM EST Never Smoker completed Never S moker eCW1 ([facility]) Smoking 10/07/2020 12:00:00 AM EST Never Smoker completed Never S moker eCW1 ([facility]) Smoking 10/07/2020 12:00:00 AM EST Never Smoker completed Never S moker eCW1 ([facility]) Smoking 10/07/2020 12:00:00 AM EST Never Smoker completed Never S moker eCW1 ([facility]) Smoking 10/07/2020 12:00:00 AM EST Never Smoker completed Never S moker eCW1 ([facility]) Smoking 10/07/2020 12:00:00 AM EST Never Smoker completed Never S moker eCW1 ([facility]) Smoking 10/07/2020 12:00:00 AM EST Never Smoker completed Never S moker eCW1 ([facility]) Smoking 10/07/2020 12:00:00 AM EST Never Smoker completed Never S moker eCW1 ([facility]) Smoking 10/07/2020 12:00:00 AM EST Never Smoker completed Never S moker eCW1 ([facility]) Smoking 10/07/2020 12:00:00 AM EST Never Smoker completed Never S moker eCW1 ([facility]) Smoking 10/07/2020 12:00:00 AM EST Never Smoker completed Never S moker eCW1 ([facility]) Smoking 10/07/2020 12:00:00 AM EST Never Smoker completed Never S moker eCW1 ([facility]) Smoking 10/07/2020 12:00:00 AM EST Never Smoker completed Never S moker eCW1 ([facility]) Smoking 10/07/2020 12:00:00 AM EST Never Smoker completed Never S moker eCW1 ([facility]) Smoking 10/07/2020 12:00:00 AM EST Never Smoker completed Never S moker eCW1 ([facility]) Smoking 10/05/2020 12:00:00 AM EST Unknown if ever smoked comp leted Unknown if ever smoked [facility] ([facility]) Smoking 09/16/2020 12:00:00 AM EST Unknown if ever smoked comp leted Unknown if ever smoked [facility] ([facility]) Smoking 08/27/2020 12:00:00 AM EST Unknown if ever smoked comp leted Unknown if ever smoked [facility] ([facility]) Smoking 08/07/2020 12:00:00 AM EST Unknown if ever smoked comp leted Unknown if ever smoked [facility] ([facility]) Smoking 08/05/2020 12:00:00 AM EST Unknown if ever smoked comp leted Unknown if ever smoked [facility] ([facility]) Smoking 06/29/2020 12:00:00 AM EST Unknown if ever smoked comp leted Unknown if ever smoked [facility] ([facility]) Smoking 06/26/2020 12:00:00 AM EDT Unknown if ever smoked comp leted Unknown if ever smoked [facility] ([facility]) Smoking 06/16/2020 12:00:00 AM EDT Never Smoker completed Never S moker eCW1 ([facility]) Smoking 06/16/2020 12:00:00 AM EDT Never Smoker completed Never S moker eCW1 ([facility]) Smoking 06/16/2020 12:00:00 AM EDT Never Smoker completed Never S moker eCW1 ([facility]) Smoking 06/16/2020 12:00:00 AM EDT Never Smoker completed Never S moker eCW1 ([facility]) Smoking 06/16/2020 12:00:00 AM EDT Never Smoker completed Never S moker eCW1 ([facility]) Smoking 06/16/2020 12:00:00 AM EDT Never Smoker completed Never S moker eCW1 ([facility]) Smoking 06/16/2020 12:00:00 AM EDT Never Smoker completed Never S moker eCW1 ([facility]) Smoking 06/16/2020 12:00:00 AM EDT Never Smoker completed Never S moker eCW1 ([facility]) Smoking 06/16/2020 12:00:00 AM EDT Never Smoker completed Never S moker eCW1 ([facility]) Smoking 06/16/2020 12:00:00 AM EDT Never Smoker completed Never S moker eCW1 ([facility]) Smoking 06/16/2020 12:00:00 AM EDT Never Smoker completed Never S moker eCW1 ([facility]) Alcohol intake 06/10/2020 12:00:00 AM EDT Current non-d kenan of alcohol (finding) completed Current non-drinker of alcohol (finding) [facility] Smoking 06/09/2020 12:00:00 AM EDT Unknown if ever smoked comp leted Unknown if ever smoked [facility] ([facility]) Smoking 05/26/2020 12:00:00 AM EDT Unknown if ever smoked comp leted Unknown if ever smoked [facility] ([facility]) Smoking 05/21/2020 12:00:00 AM EDT Unknown if ever smoked comp leted Unknown if ever smoked [facility] ([facility]) Vital Signs ID Date Data Source UNK Name Value Range Interpretation Code Description Data Source(s) Body weight 227 [lb_av] 227 [lb_av] W1 ([facility]) Body weight 102.97 kg 102.97 kg W1 ([facility]) Body height [in_i] eCW1 ([facility]) Body mass index (BMI) [Ratio] 39.58 kg/m2 39.58 kg/m2 W1 ([facility]) Heart rate 76 /min 76 /min W1 ([facility]) Body temperature 97.6 [degF] 97.6 [degF] eCW1 ( [facility]) Systolic blood pressure 124 mm[Hg] 124 mm[Hg] e CW1 ([facility]) Diastolic blood pressure 74 mm[Hg] 74 mm[Hg] eCW1 ([facility]) Body mass index (BMI) [Ratio] 39.40 kg/m2 39.40 kg/m2 W1 ([facility]) Body weight 226 [lb_av] 226 [lb_av] eCW1 ([facility]) Body height [in_i] eCW1 ([facility]) Heart rate 78 /min 78 /min eCW1 ([facility]) Respiratory rate 20 /min 20 /min eCW1 ([facility] Body temperature 98 [degF] 98 [degF] eCW1 ([facility] Systolic blood pressure 122 mm[Hg] 122 mm[Hg] e CW1 ([facility]) Diastolic blood pressure 80 mm[Hg] 80 mm[Hg] eCW1 ([facility]) Diastolic blood pressure 80 mm[Hg] 80 mm[Hg] MEDENT ([facility] ) [place] body weight 120 [lb_av] 120 [lb_av] MEDEN T ([facility], ) Systolic blood pressure 124 mm[Hg] 124 mm[Hg] M EDENT ([facility], ) Heart rate 79 /min 79 /min MEDENT ([facility], ) Oxygen saturation in Arterial blood by Pulse [facility] 99 % 99 % [facility] Room Air Body height 64 [in_i] 64 [in_i] MEDENT ([facility], ) 5'4" Body height 0.00 in Normal (applies to non-numeric resu lts) 0.00 in [facility] ([facility]) Body weight Measured 0.00 lbs Normal (applies to n on-numeric results) 0.00 lbs [facility] ([facility]) Body mass index (BMI) [Ratio] 0.00 kg/m2 No rmal (applies to non-numeric results) 0.00 kg/m2 [facility] ([facility]) Systolic blood pressure 0 mm[Hg] Normal (applies t o non-numeric results) 0 mm[Hg] [facility] ([facility]) Diastolic blood pressure 0 mm[Hg] Normal (applies to non-numeric results) 0 mm[Hg] [facility] ([facility]) Body weight 229 [lb_av] 229 [lb_av] eCW1 ([facility]) Body height [in_i] eCW1 ([facility]) Body mass index (BMI) [Ratio] 39.92 kg/m2 39.92 kg/m2 eCW1 ([facility]) Heart rate 80 /min 80 /min eCW1 ([facility]) Respiratory rate 18 /min 18 /min eCW1 ([facility]) Body temperature 97.6 [degF] 97.6 [degF] eCW1 ( [facility]) Systolic blood pressure 126 mm[Hg] 126 mm[Hg] e CW1 ([facility]) Diastolic blood pressure 80 mm[Hg] 80 mm[Hg] eCW1 ([facility]) Body height 63 [in_i] 63 [in_i] MEDENT ([facility]) 5'3" Body temperature 97.7 [degF] 97.7 [degF] MEDENT ([facility]) Body weight 225.38 [lb_av] 225.38 [lb_av] MEDEN T ([facility]) Body mass index (BMI) [Ratio] 39.9 kg/m2 39.9 k g/m2 [facility] ([facility]) Body temperature 96.0 [degF] 96.0 [degF] [facility] ([facility]) Body height 0.00 in Normal (applies to non-numeric resu lts) 0.00 in [facility] ([facility]) Body weight Measured 0.00 lbs Normal (applies to n on-numeric results) 0.00 lbs [facility] ([facility]) Body mass index (BMI) [Ratio] 0.00 kg/m2 No rmal (applies to non-numeric results) 0.00 kg/m2 [facility] ([facility]) Systolic blood pressure 0 mm[Hg] Normal (applies t o non-numeric results) 0 mm[Hg] [facility] ([facility]) Diastolic blood pressure 0 mm[Hg] Normal (applies to non-numeric results) 0 mm[Hg] [facility] ([facility]) Body height 0.00 in Normal (applies to non-numeric resu lts) 0.00 in [facility] ([facility]) Body weight Measured 0.00 lbs Normal (applies to n on-numeric results) 0.00 lbs [facility] ([facility]) Body mass index (BMI) [Ratio] 0.00 kg/m2 No rmal (applies to non-numeric results) 0.00 kg/m2 [facility] ([facility]) Systolic blood pressure 0 mm[Hg] Normal (applies t o non-numeric results) 0 mm[Hg] [facility] ([facility]) Diastolic blood pressure 0 mm[Hg] Normal (applies to non-numeric results) 0 mm[Hg] [facility] ([facility]) Body height 64 [in_i] 64 [in_i] [facility] ([facility], ) 5'4" Body weight 242.00 [lb_av] 242.00 [lb_av] MEDEN T ([facility], ) Body weight 109.771 kg 109.771 kg [facility] ([facility]) [place] body weight 120 [lb_av] 120 [lb_av] [facility] Body mass index (BMI) [Ratio] 41.5 kg/m2 41.5 k g/m2 [facility] ([facility]) Body surface area Derived from formula 2.12 m2 2.12 m2 [facility] ([facility]) Body weight 240 [lb_av] 240 [lb_av] eCW1 ([facility]) Body height [in_i] eCW1 ([facility]) Body mass index (BMI) [Ratio] 41.84 kg/m2 41.84 kg/m2 eCW1 ([facility]) Heart rate 90 /min 90 /min eCW1 ([facility]) Respiratory rate 20 /min 20 /min eCW1 ([facility]) Body temperature 98.2 [degF] 98.2 [degF] eCW1 ( [facility]) Systolic blood pressure 128 mm[Hg] 128 mm[Hg] e CW1 ([facility]) Diastolic blood pressure 76 mm[Hg] 76 mm[Hg] eCW1 ([facility]) Body weight 239.4 [lb_av] 239.4 [lb_av] eCW1 ([facility]) Body height [in_i] eCW1 ([facility]) Body mass index (BMI) [Ratio] 41.74 kg/m2 41.74 kg/m2 eCW1 ([facility]) Systolic blood pressure 130 mm[Hg] 130 mm[Hg] e CW1 ([facility]) Diastolic blood pressure 79 mm[Hg] 79 mm[Hg] eCW1 ([facility]) Body weight 241 [lb_av] 241 [lb_av] eCW1 ([facility]) Body height [in_i] eCW1 ([facility]) Body mass index (BMI) [Ratio] 42.02 kg/m2 42.02 kg/m2 eCW1 ([facility]) Systolic blood pressure 124 mm[Hg] 124 mm[Hg] e CW1 ([facility]) Diastolic blood pressure 70 mm[Hg] 70 mm[Hg] eCW1 ([facility]) Body height 0.00 in Normal (applies to non-numeric resu lts) 0.00 in [facility] ([facility]) Body weight Measured 0.00 lbs Normal (applies to n on-numeric results) 0.00 lbs [facility] ([facility]) Body mass index (BMI) [Ratio] 0.00 kg/m2 No rmal (applies to non-numeric results) 0.00 kg/m2 [facility] ([facility]) Systolic blood pressure 0 mm[Hg] Normal (applies t o non-numeric results) 0 mm[Hg] [facility] ([facility]) Diastolic blood pressure 0 mm[Hg] Normal (applies to non-numeric results) 0 mm[Hg] [facility] ([facility]) ID Date Data Source [id number] 06/10/2020 09:13:[address] [facility] Name Value Range Interpretation Code Description Data Source(s) WEIGHT RECORDED 251 lb 251 lb [facility] Body height Measured 64.02 in 64.02 in [facility] Patient Treatment Plan of Care Planned Activity Planned Date Details Description Data Source (s) Triamcinolone Acetonide 0.001 MG/MG Topical Ointment 12:00:00 AM EDT eCW1 ([facility]) Fluocinonide 0.5 MG/ML Topical Solution 06/03/2021 12:00:00 AM EDT eCW1 ([facility]) Triamcinolone Acetonide 0.001 MG/MG Topical Ointment 12:00:00 AM EDT eCW1 ([facility]) Fluocinonide 0.5 MG/ML Topical Solution 06/03/2021 12:00:00 AM EDT eCW1 ([facility]) Triamcinolone Acetonide 0.001 MG/MG Topical Ointment 12:00:00 AM EDT eCW1 ([facility]) Fluocinonide 0.5 MG/ML Topical Solution 06/03/2021 12:00:00 AM EDT eCW1 ([facility]) Triamcinolone Acetonide 0.001 MG/MG Topical Ointment 12:00:00 AM EDT eCW1 ([facility]) Fluocinonide 0.5 MG/ML Topical Solution 06/03/2021 12:00:00 AM EDT eCW1 ([facility]) Triamcinolone Acetonide 0.001 MG/MG Topical Ointment 12:00:00 AM EDT eCW1 ([facility]) Fluocinonide 0.5 MG/ML Topical Solution 06/03/2021 12:00:00 AM EDT eCW1 ([facility]) Triamcinolone Acetonide 0.001 MG/MG Topical Ointment 12:00:00 AM EDT eCW1 ([facility]) Fluocinonide 0.5 MG/ML Topical Solution 06/03/2021 12:00:00 AM EDT eCW1 ([facility]) Amlodipine 5 MG Oral Tablet 05/17/2021 12:00:00 AM EDT eCW1 ([facility]) Amlodipine 5 MG Oral Tablet 05/17/2021 12:00:00 AM EDT eCW1 ([facility]) Amlodipine 5 MG Oral Tablet 05/17/2021 12:00:00 AM EDT eCW1 ([facility]) Lidocaine Hydrochloride 20 MG/ML Mucous Membrane Topic al Solution 04/26/2021 12:00:00 AM EDT eCW1 ([facility]) Lidocaine Hydrochloride 20 MG/ML Mucous Membrane Topic al Solution 04/26/2021 12:00:00 AM EDT eCW1 ([facility]) Lidocaine Hydrochloride 20 MG/ML Mucous Membrane Topic al Solution 04/26/2021 12:00:00 AM EDT eCW1 ([facility]) Hydroxychloroquine Sulfate 200 MG Oral Tablet 02/18/2021 12:00:00 A M [facility] retapamulin 0.01 MG/MG Topical Ointment [Altabax] 10/08/2020 12: 00:00 AM EST eCW1 ([facility]) Fluconazole 100 MG Oral Tablet [Diflucan] 10/08/2020 12:00:00 AM ES T eCW1 ([facility]) retapamulin 0.01 MG/MG Topical Ointment [Altabax] 10/08/2020 12: 00:00 AM EST eCW1 ([facility]) Fluconazole 100 MG Oral Tablet [Diflucan] 10/08/2020 12:00:00 AM ES T eCW1 ([facility]) retapamulin 0.01 MG/MG Topical Ointment [Altabax] 10/08/2020 12: 00:00 AM EST eCW1 ([facility]) Fluconazole 100 MG Oral Tablet [Diflucan] 10/08/2020 12:00:00 AM ES T eCW1 ([facility]) retapamulin 0.01 MG/MG Topical Ointment [Altabax] 10/08/2020 12: 00:00 AM EST eCW1 ([facility]) Fluconazole 100 MG Oral Tablet [Diflucan] 10/08/2020 12:00:00 AM ES T eCW1 ([facility]) retapamulin 0.01 MG/MG Topical Ointment [Altabax] 10/08/2020 12: 00:00 AM EST eCW1 ([facility]) retapamulin 0.01 MG/MG Topical Ointment [Altabax] 10/08/2020 12: 00:00 AM EST eCW1 ([facility]) Fluconazole 100 MG Oral Tablet [Diflucan] 10/08/2020 12:00:00 AM ES T eCW1 ([facility]) retapamulin 0.01 MG/MG Topical Ointment [Altabax] 10/08/2020 12: 00:00 AM EST eCW1 ([facility]) Fluconazole 100 MG Oral Tablet [Diflucan] 10/08/2020 12:00:00 AM ES T eCW1 ([facility]) Fluconazole 100 MG Oral Tablet [Diflucan] 10/08/2020 12:00:00 AM ES T eCW1 ([facility]) retapamulin 0.01 MG/MG Topical Ointment [Altabax] 10/08/2020 12: 00:00 AM EST eCW1 ([facility]) Fluconazole 100 MG Oral Tablet [Diflucan] 10/08/2020 12:00:00 AM ES T eCW1 ([facility]) retapamulin 0.01 MG/MG Topical Ointment [Altabax] 10/08/2020 12: 00:00 AM EST eCW1 ([facility]) Fluconazole 100 MG Oral Tablet [Diflucan] 10/08/2020 12:00:00 AM ES T eCW1 ([facility]) retapamulin 0.01 MG/MG Topical Ointment [Altabax] 10/08/2020 12: 00:00 AM EST eCW1 ([facility]) Fluconazole 100 MG Oral Tablet [Diflucan] 10/08/2020 12:00:00 AM ES T eCW1 ([facility]) retapamulin 0.01 MG/MG Topical Ointment [Altabax] 10/08/2020 12: 00:00 AM EST eCW1 ([facility]) Fluconazole 100 MG Oral Tablet [Diflucan] 10/08/2020 12:00:00 AM ES T eCW1 ([facility]) Fluconazole 100 MG Oral Tablet [Diflucan] 10/08/2020 12:00:00 AM ES T eCW1 ([facility]) retapamulin 0.01 MG/MG Topical Ointment [Altabax] 10/08/2020 12: 00:00 AM EST eCW1 ([facility]) retapamulin 0.01 MG/MG Topical Ointment [Altabax] 10/08/2020 12: 00:00 AM EST eCW1 ([facility]) Fluconazole 100 MG Oral Tablet [Diflucan] 10/08/2020 12:00:00 AM ES T eCW1 ([facility]) retapamulin 0.01 MG/MG Topical Ointment [Altabax] 10/08/2020 12: 00:00 AM EST eCW1 ([facility]) Fluconazole 100 MG Oral Tablet [Diflucan] 10/08/2020 12:00:00 AM ES T eCW1 ([facility]) retapamulin 0.01 MG/MG Topical Ointment [Altabax] 10/08/2020 12: 00:00 AM EST eCW1 ([facility]) Fluconazole 100 MG Oral Tablet [Diflucan] 10/08/2020 12:00:00 AM ES T eCW1 ([facility]) retapamulin 0.01 MG/MG Topical Ointment [Altabax] 10/08/2020 12: 00:00 AM EST eCW1 ([facility]) Fluconazole 100 MG Oral Tablet [Diflucan] 10/08/2020 12:00:00 AM ES T eCW1 ([facility]) retapamulin 0.01 MG/MG Topical Ointment [Altabax] 10/08/2020 12: 00:00 AM EST eCW1 ([facility]) Fluconazole 100 MG Oral Tablet [Diflucan] 10/08/2020 12:00:00 AM ES T eCW1 ([facility]) retapamulin 0.01 MG/MG Topical Ointment [Altabax] 10/08/2020 12: 00:00 AM EST eCW1 ([facility]) Fluconazole 100 MG Oral Tablet [Diflucan] 10/08/2020 12:00:00 AM ES T eCW1 ([facility]) [place] Walker 1 07/13/2020 12:00:00 AM EST eCW1 ([facility]) [place] 1 07/13/2020 12:00:00 AM EST eCW1 ([facility]) [place] 1 07/13/2020 12:00:00 AM EST eCW1 ([facility]) [place] 1 07/13/2020 12:00:00 AM EST eCW1 ([facility]) [place] 1 07/13/2020 12:00:00 AM EST eCW1 ([facility]) [place] 1 07/13/2020 12:00:00 AM EST eCW1 ([facility]) Hydroxychloroquine Sulfate 200 MG Oral Tablet 06/02/2020 12:00:00 A M [facility] Hydroxychloroquine Sulfate 200 MG Oral Tablet 03/26/2020 12:00:00 A M [facility]
[2021-06-18 12:09] LABS: RSV AMPLIFICATION NEGATIVE (NEGATIVE)
[2021-06-18] MEDS ORDERED: QUET200T54 PO (19:42)
[2021-06-18] MEDS ORDERED: LITH300C PO (19:42)
[2021-06-18] MEDS ORDERED: QUET50TA4 PO (19:42)
[2021-06-18] MEDS ORDERED: ZOLO100T PO (19:42)
[2021-06-18] MEDS ORDERED: HOME MED LIST COMPLETE! XX SCH (19:45)
[2021-06-18] MEDS ORDERED: ACETAMINOPHEN 500 MG TAB PO ONE (20:25)
[2021-06-18] MEDS ORDERED: QUEtiapine FUMARATE **XR** 200MG TABLET PO SCH (21:00)
[2021-06-18] MEDS ORDERED: LATANOPROST 0.005% OPHTH SOLN 2.5 ML OU SCH (21:00)
[2021-06-18] MEDS ORDERED: LITHIUM CARBONATE 600MG CAP PO SCH (21:00)
[2021-06-18] MEDS: TIMOLOL MALEATE 0.5% OPHTH SOLN 5 ML OU SCH (21:28)
[2021-06-18] MEDS: HYDROXYCHLOROQUINE 200 MG TAB PO SCH (21:28)
[2021-06-19] MEDS ORDERED: LEVOTHYROXINE 50MCG TABLET (0.05MG) PO SCH (06:00)
--- NOTE | 2021-06-19 06:57 | ECGEPIP ---
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
[2021-06-19] MEDS ORDERED: QUEtiapine FUMARATE 50MG TAB PO SCH ×3 (08:00→08:03)
[2021-06-19] MEDS: HYDROXYCHLOROQUINE 200 MG TAB PO SCH (08:28)
[2021-06-19] MEDS: TIMOLOL MALEATE 0.5% OPHTH SOLN 5 ML OU SCH (08:28)
[2021-06-19] MEDS ORDERED: ACETAMINOPHEN 500 MG TAB PO ONE (08:50)
[2021-06-19] MEDS ORDERED: SERTRALINE 100 MG TAB PO SCH (09:00)
[2021-06-19] MEDS ORDERED: OMEPRAZOLE 20 MG CAP PO SCH (09:00)
[2021-06-19] MEDS ORDERED: ASPIRIN 81MG ENTERIC TABLET PO SCH (09:00)
[2021-06-19] MEDS ORDERED: hydroCHLOROthiazide 12.5 MG CAPSULE PO SCH (09:00)
[2021-06-19 12:00] VITALS: BP 106/65
== END 2021-06-19 12:03 ==
LOC: M ED 07:27
DX: R45.851 Suicidal ideations (principal); I44.0 Atrioventricular block, first degree; R94.31 Abnormal electrocardiogram [ECG] [EKG]; I10 Essential (primary) hypertension; G47.33 Obstructive sleep apnea (adult) (pediatric); Z79.890 Hormone replacement therapy; Z79.899 Other long term (current) drug therapy; Z88.8 Allergy status to other drugs, medicaments and biological substances; Z86.718 Personal history of other venous thrombosis and embolism
CPT/HCPCS: 80048; 80076; 80143; 80178; 80307; 81001; 82077; 84443; 85027; 87086; 87631; 93005; 96372; 99285; J2060

== ENCOUNTER → 2021-07-08 | Outpatient (REF) | payer MEDICARE, MEDICAID ==
[~2021-07-08] MED LIST changes: +QUET200T54 PO
== END ==
LOC: M LAB REF 16:36
PROVIDERS: ATTEND Physician Assistant
DX: R05.9 Cough, unspecified (principal); R50.9 Fever, unspecified

== ENCOUNTER 2021-07-12 11:20 | Inpatient (IN) | payer MEDICARE, MEDICAID ==
[~2021-07-12] VITALS: Ht 157.5 cm; Wt 96.0 kg
[2021-07-12] MEDS ORDERED: LITH300T2 PO (11:36)
[2021-07-12] MEDS ORDERED: AMLO1TAB24 PO (11:36)
[2021-07-12] MEDS ORDERED: LEVO50TA5 PO (11:36)
--- NOTE | 2021-07-12 12:07 | REP ---
INDICATION: Coronavirus workup COMPARISON: 09/10/2017 TECHNIQUE: Portable AP view of the chest FINDINGS: Evaluation is limited by poor inspiratory effort although left lower lobe opacities suggest acute pneumonia and requires correlation/follow-up. Trace right basilar atelectasis cannot be excluded as well. IMPRESSION: Left lower lobe airspace disease. Possible small right basilar atelectasis. <Electronically signed by Preet Reza > 07/12/21 1625
[2021-07-12 12:12] LABS: BASO % 0.3 % (0.0-1.0); EOS % 0.6 % (0.0-3.0); HEMATOCRIT 38.6 % (36.0-47.0); HEMOGLOBIN 12.4 g/dl (12.0-15.5); LYMPH # 0.4 10^3/uL (1.5-5.0); LYMPH % 12.1 % (24.0-44.0); MEAN CORPUSCULAR HEMOGLOBIN 28.6 pg (27.0-33.0); MEAN CORPUSCULAR HGB CONC 32.1 g/dl (32.0-36.5); MEAN CORPUSCULAR VOLUME 88.9 fl (80.0-96.0); MONO # 0.3 10^3/uL (0.0-0.8); MONO % 9.1 % (2.0-8.0); NEUTROPHILS # 2.6 10^3/uL (1.5-8.5); NEUTROPHILS % 77.3 % (36.0-66.0); PLATELET COUNT, AUTOMATED 142 10^3/uL (150-450); RED BLOOD COUNT 4.34 10^6/uL (4.00-5.40); WHITE BLOOD COUNT 3.4 10^3/uL (4.0-10.0)
[2021-07-12 12:23] LABS: INR 1.15; PROTHROMBIN TIME 15.1 SECONDS (12.7-14.5)
[2021-07-12 12:24] LABS: PARTIAL THROMBOPLASTIN TIME 37.2 SECONDS (25.9-37.0)
[2021-07-12 12:36] LABS: CK-MB VALUE MASS < 1.0 NG/ML (<3.6); CPK CREATINE PHOSPHOKINASE 50 U/L (26-192); TROPONIN I < 0.02 NG/ML (< 0.10)
[2021-07-12 12:46] LABS: ALBUMIN 3.2 GM/DL (3.2-5.2); ALT/SGPT 29 U/L (12-78); BILIRUBIN,TOTAL 0.5 MG/DL (0.2-1.0); BLOOD UREA NITROGEN 15 MG/DL (7-18); C REACTIVE PROTEIN QUANTITATIV 6.43 MG/DL (0.00-0.30); CALCIUM LEVEL 9.1 MG/DL (8.8-10.2); CARBON DIOXIDE LEVEL 27 MEQ/L (21-32); CHLORIDE LEVEL 105 MEQ/L (98-107); CREATININE FOR GFR 0.72 MG/DL (0.55-1.30); FERRITIN 236 NG/ML (8-252); GLOMERULAR FILTRATION RATE > 60.0 (>45); GLUCOSE, FASTING 89 MG/DL (70-100); LDH LACTATE DEHYDROGENASE 328 U/L (84-246); MAGNESIUM LEVEL 2.3 MG/DL (1.8-2.4); POTASSIUM SERUM 3.4 MEQ/L (3.5-5.1); SODIUM LEVEL 138 MEQ/L (136-145); TOTAL PROTEIN 6.8 GM/DL (6.4-8.2)
--- OUTSIDE RECORDS SUMMARY | 2021-07-12 15:07 | CCD ---
Author Author Tati Jessica Organization Unknown Address [address] [place] [address] Phone Care Team Providers Care Internetworking Technician Name Role Phone Robin Jessica PCP Allergies, Adverse Reactions, Alerts No Data [...] Name Taxonomy Code Taxonomy Desc Phone Number [phone] Zoloft by mouth [id number] 09/04/2019 every morning 50 [place] [id number] Kemi Graff [id number] Psychiatric/Mental Health [phone] [id number] quetiapine by mouth [id number] 05/13/2021 08/11/2021 at bedtime 30 200 mg tablet extended release 24 hr [id number] Kemi Graff [id number] Psychiatric/Mental Health [id number] quetiapine by mouth [id number] 05/13/2021 08/11/2021 twice a day 30 50 mg tablet [id number] Kemi Graff [id number] P sychiatric/Mental Health [id number] Zoloft by mouth [id number] 03/29/2021 09/14/2021 every morning 30 100 mg tablet 35640 [id number] Kemi Graff [id number] P sychiatric/Mental Health [id number] lithium carbonate by mouth [id number] 05/13/2021 09/14/2021 once a day 30 300 mg tablet [id number] Kemi Graff [id number] Psychiatric/Mental Health [id number] Social History Social History Element Description Concept Effective Date Smoking Status Unknown if ever smoked [id number] Immunizations No Data in Section Vital Signs No Data in Section Procedures Date Concept Id Description Targeted Site Concept Targeted Site Concept Type 06/29/2021 45492 Extended Individual Psychotherapy - 45 min CPT Patient has no history of implantable de vices Encounters Encounter Start Date End Date Encounter Type Description Diagnosis Di agnosis Desc Location Author First Name Author Last Name Npid Taxonomy Cod e Taxonomy Desc Phone Number Location Addr1 Location Addr2 Location City Location Sta te Location Zip [id number] 06/29/2021 06/29/2021 63334 Extended Individual Psych otherapy - 45 min F25.0 Schizoaffective disorder, bipolartype [facility] Aracely Robin [phone] [id number] Independent Living Specialist [phone] [address] [address] Plan of Treatment No Data in Section Lab Results No Data in Section Instructions No Data in Section Insurance Providers Insurance Id Policy Effective Date Policy Thru Date [employer] N deny [id number] 1993 MEDICARE [id number] 2016 MEDICAID
--- OUTSIDE RECORDS SUMMARY | 2021-07-12 15:07 | CCD ---
Author Author [facility] Organization [facility] Address Unknown Phone Unavailable Care Team Providers Care Warehouse Logistics Manager Name Role Phone Zaina Hernández Unavailable PROBLEMS Type Condition ICD9-CM Code BCB60-GG Code Onset Dates Condition S tatus W/U Status Risk SNOMED Code Notes Problem Gastroesophageal reflux disease, esophagitis pre sence not specified K21.9 Active confirmed 698636965 Problem Allergic rhinitis, unspecified seasonality, unspecifie d trigger J30.9 Active confirmed 87611562 Problem Hypothyroidism, unspecified type E03.9 Active conf irmed 78052420 Problem BMI 40.0-44.9, adult Z68.41 Active confirmed 300708694 Problem Pain in right knee M25.561 Active confirmed 70731587 Problem Other chronic pain G89.29 Active confirmed 8 2947584 Problem Mixed hyperlipidemia E78.2 Active confirmed 230022792 Problem Tongue pain K14.6 Active confirmed 60897928 Problem Schizoaffective disorder, depressive type F25.1 Active confirmed 33871373 Problem Essential hypertension I10 Active confirmed 23146781 Problem Schizoaffective disorder, unspecified type F25.9 Active confirmed 45855563 Problem Leg edema R60.0 Active confirmed 757856902 Problem Sleep apnea in adult G47.30 Active confirmed 37245165 Problem Depression, unspecified depression type F32.9 Active confirmed 91155653 Problem Vitamin D deficiency E55.9 Active confirmed 41939488 ALLERGIES Allergen (clinical drug ingredient) Drug/Non Drug Allergy do cumented on EMR Reaction Allergy Type Onset Date Status Chocolate Natural & Artifical([facility] Code:[address]-53) Unkn own Drug Allergy Active chlorpromazine ChlorproMAZINE Unknown Drug Allergy Acti ve doxepin Doxepin HCl([facility] Code:[address]-77) Unknown Drug Allerg y Active trifluoperazine Trifluoperazine Unknown Drug Allergy Ac tive zolpidem Zolpidem Unknown Drug Allergy Active caffeine Caffeine Unknown Drug Allergy Active zolpidem Ambien([facility] Code:[address]-80) Unknown Drug Allergy Active Thorazine passes out/or paces back and forth Drug Allergy Active nitrofurantoin Nitrofurantoin([facility] Code:[address]-38) Unknown Drug Allergy Active stelazine hyperactive Non Drug Allergy Active hydroxyzine HydrOXYzine HCl([facility] Code:[address]-71) Unknown Drug A llergy Active Haldol Unknown Drug Allergy Active bupropion BuPROPion HCl([facility] Code:[address]-93) Unknown Drug Jadon rgy Active ENCOUNTERS from 1960 to 2021-07-05 Encounter Location Date Provider Diagnosis [address] [phone] [place] [address] Jun, Zaina Servage Hypothyroidism, unspecified type E03.9 ; Essential hypertension I10 ; Schizoaffective disorder, depressive type F25.1 ; Gastroesophageal reflux disease, esophagitis presence not specified K21.9 ; Depression, unspecified depression type F32.9 ; Allergic rhinitis, unspecified seasonality, unspecified trigger J30.9 ; BMI 40.0-44.9, adult Z68.41 ; Hospital discharge follow-up Z09 ; Sleep apnea in adult G47.30 ; Vitamin D deficiency E55.9 ; History of DVT (deep vein thrombosis) Z86.718 and Immunization refused Z28.21 IMMUNIZATIONS Vaccine Route Administration Date Status Influenza Pharmacy Given Unknown Apr 29, 2021 Adminis tered Influenza 18 yrs & older Flublok IM [...] Education Language: Question Answer Notes Languages spoken: Bruneian Methodist: Question Answer Notes Methodist 99 Other Mennonite Sexual Hx: Question Answer [...] FOR REFERRAL No Information VITAL SIGNS Weight 226.4 lbs Jun, Weight-kg 102.69 kg Jun, Height 63 1/2 in Jun, BMI 39.47 kg/m2 Jun, Heart Rate 86 /min Jun, Respiratory Rate 18 /min Jun, Temperature 97.8 degrees Fahrenheit Jun, Oximetry 99 Jun, Blood pressure systolic 124 mm Hg Jun, Blood pressure diastolic 78 mm Hg Jun, MEDICATIONS Medication SIG (Take, Route, Frequency, Duration) Notes Start Da te End Date Status Ciclopirox Olamine 0.77 % 1 application Externally daily to toenails on discharge from [facility] 05/10/21 Active Synthroid 0.05 mg 1 tab(s) Orally daily Active [place] Carbonate 300 MG 1 capsule Orally with meals dose ch jovanni on [facility] discharge 05/10/21 Active Latanoprost 0.005 % 1 drop into affected eye in the evening Ophthalmic Once a day Active Calcium 600 + D 600-400 MG-UNIT 1 tablet Orally twice a day for 30 da ys Active Fexofenadine HCl 180 MG TAKE ONE TABLET BY MOUTH @8AM Active DOK 100 MG TAKE TWO CAPSULES BY MOUTH @8AM for 28 Active Hydroxychloroquine 200 mg 1 cap po twice daily Active Triamcinolone Acetonide 0.1 % 1 application topically Twice a day to rash for 14 days May, Active SEROquel 200 MG 1 tab Orally before bedtime Active Omeprazole 40 MG 1 capsule Orally Once a day Active Mupirocin 2 % APPLY TOPICALLY THREE TIMES DAILY EXTERNALLY DIRECTED for 10 Active Multivitamins 1 Orally daily for 30 Days duplicate Not-Taking amLODIPine Besylate 5 MG 1 tablet Orally Once a day for 30 day(s ) Apr, Active Omeprazole 40 MG TAKE ONE CAPSULE BY MOUTH @8AM for Active Fexofenadine HCl 180 MG TAKE ONE TABLET BY MOUTH @8AM for 28 Active Artificial Tear Active Aspirin Low Dose 81 MG TAKE ONE TABLET BY MOUTH @8AM for 26 Active Fluocinonide 0.05 % 1 application Externally Twice a day for 14 days May, Active SEROquel 25 mg 1 tab Orally at 8am and 2 pm Active Timolol Maleate 0.25 % 1 drop into affected eye Ophthalmic Once a day Active Rolling Walker 1 with seat, basket and brakes DX: CodeM25.561 daily for 1825 days FAX TO [facility] Jun, Active Kenalog lotion Active Cranberry 400 MG as directed Orally bid on discharge 05/10/21 Active Hydrochlorothiazide 12.5 MG TAKE ONE TABLET BY MOUTH @8AM for 28 Active Vitamin D-3 25 MCG (1000 UT) 1 capsule Orally Once a day for 30 day(s ) Active Sertraline HCl 100 MG 1 tablet Orally Once a day for 30 day(s) Active Multivitamin - TAKE ONE TABLET BY MOUTH @8AM for Active Lidocaine Viscous HCl 2 % 15 ml orally tid prn mouth discomfort for 15 days Active Melatonin 5 MG 1 capsule at bedtime as needed Orally Once a day for 30 day(s) Active PROCEDURES No Information RESULTS No Results REASON FOR VISIT [facility] Follow up MEDICAL (GENERAL) HISTORY Type Description Date Medical History Schizoaffective disorder nu [facility] Medical History Depression Medical History Hypothyroidism [...] Notes Treatment Notes Treatm ent Clinical Notes Jun, Hypothyroidism, unspecified type (ICD-10 - E03.9 ) TSH in the hospital was normal at 3.06 no change in medications Jun, Essential hypertension (ICD-10 - I10) Blood pressure meets goal today , EKG in the hospital indicated first-degree AV block will follow Jun, Schizoaffective disorder, depressive type (ICD-1 0 - F25.1) [facility] thru their service per hospital discharge she is supposed to go to [facility], patient states that there is not a room for her there. [place] living [address] Jun, Gastroesophageal reflux dise ase, esophagitis presence not specified (ICD-10 - K21.9) controlled with med Jun, Depression, unspecified depression type (ICD-10 - F32.9) denies suicidal thoughts, today, following through [facility] Jun, Allergic rhinitis, unspecifi ed seasonality, unspecified trigger (ICD-10 - J30.9) Controlled at the current time with fexofenadine Jun, BMI 40.0-44.9, adult (ICD-10 - Z68.41) upset over her weight trying to cut down Jun, Hospital discharge follow-up (ICD-10 - Z09) Hospital discharge summary reviewed.from [facility] Called her mother on the phone, . Discussed her daughter, decision made to hold off consult to neurology services until after the first of the year to see if her daughter feels better moving into [facility] Jun, Sleep apnea in adult (ICD-10 - G47.30) Jun, Vitamin D deficiency (ICD-10 - E55.9) Jun, History of DVT (deep vein thrombosis) (ICD-10 - Z86.718) Jun, Immunization refused (ICD-10 - Z28.21) flu vaccine in the hospital 04/29/21 PLAN OF TREATMENT Medication Medication Name Sig Start Date Stop Date Fexofenadine HCl 180 MG TAKE ONE TABLET BY MOUTH @8AM Synthroid 0.05 mg 1 tab(s) Orally daily Omeprazole 40 MG 1 capsule Orally Once a day Treatment Notes Assessment Notes Clinical Notes Hypothyroidism, unspecified type TSH in the hospital was normal at 3.06 no change in medications Essential hypertension Blood pressure me ets goal today , EKG in the hospital indicated first-degree AV block will follow Schizoaffective disorder, depressive type [facility] Psych meds thru their service per hospital discharge she is supposed to go to [facility], patient states that there is not a room for her there. Still living on [facility] Gastroesophageal reflux disease, esophagitis presence not sp ecified controlled with med Depression, unspecified depression type denies suicidal thoughts, today, following through [facility] Allergic rhinitis, unspecified seasonality, unspecified trig rama Controlled at the current time with fexofenadine BMI 40.0-44.9, adult upset over her weig ht trying to cut down Hospital discharge follow-up [facility] . Discussed her daughter, decision made to hold off consult to neurology services until after the first of the year to see if her daughter feels better moving into [facility] Immunization refused flu vaccine in the hospital 04/29/21 Next Appt Details august as scheduled Reason: Provider Name:Alicia Edmondson, 2021-08-03 01:00:00 PM, [address] [place] [address], , [place], [address], Provider Name:Zaina Hernández, 02:00:00 PM, [address] [facility], , [place], [address], Provider Name:Lili Ramirez, 2021-09-20 01:30:00 PM, [address] [facility], , [place], [address], Insurance Providers Payer Name Payer Address Payer Phone Insured Name Patient Relati onship to Insured Coverage Start Date Coverage End Date MEDICARE Part A and B [address] [facility] [id number] [phone] NIGEL ROSENBAUM self MEDICAID [employer] [address] [facility] [id number] NIGEL ROSENBAUM self
--- OUTSIDE RECORDS SUMMARY | 2021-07-12 15:07 | CCD ---
Author Author [facility] Organization [facility] Address Unknown Phone Unavailable Care Team Providers Care Acid Leveler Name Role Phone Zaina Hernández Unavailable PROBLEMS Type Condition ICD9-CM Code QYD43-GR Code Onset Dates Condition S tatus W/U Status Risk SNOMED Code Notes Problem Gastroesophageal reflux disease, esophagitis pre sence not specified K21.9 Active confirmed 488698828 Problem Allergic rhinitis, unspecified seasonality, unspecifie d trigger J30.9 Active confirmed 03289921 Problem Hypothyroidism, unspecified type E03.9 Active conf irmed 76345609 Problem BMI 40.0-44.9, adult Z68.41 Active confirmed 158859806 Problem Pain in right knee M25.561 Active confirmed 28718024 Problem Other chronic pain G89.29 Active confirmed 8 5640566 Problem Mixed hyperlipidemia E78.2 Active confirmed 661000953 Problem Tongue pain K14.6 Active confirmed 28377115 Problem Schizoaffective disorder, depressive type F25.1 Active confirmed 51326542 Problem Essential hypertension I10 Active confirmed 99935125 Problem Schizoaffective disorder, unspecified type F25.9 Active confirmed 64036122 Problem Leg edema R60.0 Active confirmed 257635608 Problem Sleep apnea in adult G47.30 Active confirmed 34013489 Problem Depression, unspecified depression type F32.9 Active confirmed 53802753 Problem Vitamin D deficiency E55.9 Active confirmed 69291933 ALLERGIES Allergen (clinical drug ingredient) Drug/Non Drug Allergy do cumented on EMR Reaction Allergy Type Onset Date Status Chocolate Natural & Artifical([facility] Code:[address]-39) Unkn own Drug Allergy Active chlorpromazine ChlorproMAZINE Unknown Drug Allergy Acti ve doxepin Doxepin HCl([facility] Code:[address]-45) Unknown Drug Allerg y Active trifluoperazine Trifluoperazine Unknown Drug Allergy Ac tive zolpidem Zolpidem Unknown Drug Allergy Active caffeine Caffeine Unknown Drug Allergy Active zolpidem Ambien([facility] Code:[address]-85) Unknown Drug Allergy Active Thorazine passes out/or paces back and forth Drug Allergy Active nitrofurantoin Nitrofurantoin([facility] Code:[address]-89) Unknown Drug Allergy Active stelazine hyperactive Non Drug Allergy Active hydroxyzine HydrOXYzine HCl([facility] Code:[address]-01) Unknown Drug A llergy Active Haldol Unknown Drug Allergy Active bupropion BuPROPion HCl([facility] Code:[address]-43) Unknown Drug Jadon rgy Active ENCOUNTERS from 1960 to 2021-07-04 Encounter Location Date Provider Diagnosis [address] [phone] [place] [address] Apr, Zaina Servage IMMUNIZATIONS Vaccine Route Administration [...] Education Language: Question Answer Notes Languages spoken: Qatari Samaritan: Question Answer Notes Samaritan 99 Other Mennonite Sexual Hx: Question Answer [...] Externally daily to toenails on discharge from [facility] 05/10/21 Active Synthroid 0.05 mg 1 tab(s) Orally daily Active [place] Carbonate 300 MG 1 capsule Orally with meals dose ch jovanni on [facility] discharge 05/10/21 Active Latanoprost 0.005 % 1 [...] ONE TABLET BY MOUTH @8AM for Active Artificial Tear Active Aspirin Low Dose 81 MG TAKE ONE TABLET BY MOUTH @8AM for Active Fluocinonide 0.05 % 1 application Externally Twice a day for 14 days May, Active SEROquel 25 mg 1 tab Orally at 8am and 2 pm Active Timolol Maleate 0.25 % 1 drop into affected eye Ophthalmic Once a day Active Rolling Walker 1 with seat, basket and brakes DX: CodeM25.561 daily for 1825 days FAX TO [facility] Jun, Active Kenalog lotion Active Cranberry 400 [...] TABLET BY MOUTH @8AM for 26 Active Lidocaine Viscous HCl 2 % 15 ml orally tid prn mouth discomfort for 15 days Active Melatonin 5 MG 1 capsule at bedtime as needed Orally Once a day for 30 day(s) Active PROCEDURES No Information RESULTS No Results REASON FOR VISIT confusion about meds MEDICAL (GENERAL) HISTORY Type Description Date Medical History Schizoaffective disorder nu [facility] Medical History Depression Medical History Hypothyroidism Medical [...] MG 1 capsule Orally Once a day Next Appt Details Provider Name:Alicia Edmondson, 2021-08-03 01:00:00 PM, [facility] [facility], , [place], [address], Provider Name:Zaina Hernández, 02:00:00 PM, [address] [facility], , [place], [address], Provider Name:Lili Ramirez, 2021-09-20 01:30:00 PM, [address] [facility], , [place], [address], Insurance Providers Payer Name Payer Address Payer Phone Insured Name Patient Relati onship to Insured Coverage Start Date Coverage End Date MEDICARE Part A and B [address] [facility] [phone] NIGEL ROSENBAUM MEDICAID [employer] [address] [facility] [id number] NIGEL ROSENBAUM
--- OUTSIDE RECORDS SUMMARY | 2021-07-12 15:07 | CCD ---
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 Engineer Name Role Phone Zaina Hernández Unavailable PROBLEMS Type Condition ICD9-CM Code KPZ64-WH Code Onset Dates Condition S tatus W/U Status Risk SNOMED Code Notes Problem Gastroesophageal reflux disease, esophagitis pre sence not specified K21.9 Active confirmed 096424416 Problem Allergic rhinitis, unspecified seasonality, unspecifie d trigger J30.9 Active confirmed 44609764 Problem Hypothyroidism, unspecified type E03.9 Active conf irmed 37740454 Problem BMI 40.0-44.9, adult Z68.41 Active confirmed 949439268 Problem Pain in right knee M25.561 Active confirmed 79528731 Problem Other chronic pain G89.29 Active confirmed 8 0466034 Problem Mixed hyperlipidemia E78.2 Active confirmed 124677703 Problem Tongue pain K14.6 Active confirmed 60444651 Problem Schizoaffective disorder, depressive type F25.1 Active confirmed 70129058 Problem Essential hypertension I10 Active confirmed 19545355 Problem Schizoaffective disorder, unspecified type F25.9 Active confirmed 68289458 Problem Leg edema R60.0 Active confirmed 296456701 Problem Sleep apnea in adult G47.30 Active confirmed 55109952 Problem Depression, unspecified depression type F32.9 Active confirmed 45280158 Problem Vitamin D deficiency E55.9 Active confirmed 75140337 ALLERGIES Allergen (clinical drug ingredient) Drug/Non Drug Allergy do cumented on EMR Reaction Allergy Type Onset Date Status Chocolate Natural & Artifical([facility] Code:[address]-86) Unkn own Drug Allergy Active chlorpromazine ChlorproMAZINE Unknown Drug Allergy Acti ve doxepin Doxepin HCl([facility] Code:[address]-68) Unknown Drug Allerg y Active trifluoperazine Trifluoperazine Unknown Drug Allergy Ac tive zolpidem Zolpidem Unknown Drug Allergy Active caffeine Caffeine Unknown Drug Allergy Active zolpidem Ambien([facility] Code:[address]-22) Unknown Drug Allergy Active Thorazine passes out/or paces back and forth Drug Allergy Active nitrofurantoin Nitrofurantoin([facility] Code:[address]-08) Unknown Drug Allergy Active stelazine hyperactive Non Drug Allergy Active hydroxyzine HydrOXYzine HCl([facility] Code:[address]-37) Unknown Drug A llergy Active Haldol Unknown Drug Allergy Active bupropion BuPROPion HCl([facility] Code:[address]-58) Unknown Drug Jadon rgy Active ENCOUNTERS from 1960 to 2021-07-04 Encounter Location Date Provider Diagnosis [address] [phone] [place] [address] Jun, Zaina Servage IMMUNIZATIONS Vaccine Route Administration Date [...] Education Language: Question Answer Notes Languages spoken: Tongan Muslim: Question Answer Notes Muslim 99 Other Mennonite Sexual Hx: Question Answer [...] Externally daily to toenails on discharge from [facility] 05/10/21 Active Synthroid 0.05 mg 1 tab(s) Orally daily Active [place] Carbonate 300 MG 1 capsule Orally with meals dose ch jovanni on [facility] discharge 05/10/21 Active Latanoprost 0.005 [...] for 1825 days FAX TO [facility] Jun, Active Kenalog lotion Active Cranberry [...] Information RESULTS No Results REASON FOR VISIT Referral MEDICAL (GENERAL) HISTORY Type Description Date Medical History Schizoaffective disorder fol [facility] Medical History Depression Medical History Hypothyroidism [...] Details Provider Name:Alicia Edmondson, 2021-08-03 01:00:00 PM, [facility], , [place], [address], Provider Name:Zaina Hernández, 02:00:00 PM, [address] [facility], , [place], [address], Provider Name:Lili Ramirez, 2021-09-20 01:30:00 PM, [address] [facility], , [place], [address], Insurance Providers Payer Name Payer Address Payer Phone Insured Name Patient Relati onship to Insured Coverage Start Date Coverage End Date MEDICAID [employer] [address] [facility] [id number] NIGEL ROSENBAUM MEDICARE Part A and B [address] [facility] [address] [phone] NIGEL ROSENBAUM self
--- OUTSIDE RECORDS SUMMARY | 2021-07-12 15:09 | CCD ---
Author Author [facility] Organization [facility] Address Unknown Phone Unavailable Care Team Providers Care Atmospheric Sciences Professor Name Role Phone Estee, L Patsy GRID TRIMMER Unavailable Unavailable Estee, L Patsy GRID TRIMMER Unavailable Unavailable Estee, L Patsy GRID TRIMMER Unavailable Unavailable Estee, L Patsy GRID TRIMMER Unavailable Unavailable Estee, L Patsy GRID TRIMMER Unavailable Unavailable Estee, L Patsy GRID TRIMMER Unavailable Unavailable Estee, L Patsy GRID TRIMMER Unavailable Unavailable Estee, L Patsy GRID TRIMMER Unavailable Unavailable Estee, L Patsy GRID TRIMMER Unavailable Unavailable Estee, L Patsy GRID TRIMMER Unavailable Unavailable Estee, L Patsy GRID TRIMMER Unavailable Unavailable Estee, L Patsy GRID TRIMMER Unavailable Unavailable Estee, L Patsy GRID TRIMMER Unavailable Unavailable Estee, L Patsy GRID TRIMMER Unavailable Unavailable Estee, L Patsy GRID TRIMMER Unavailable Unavailable Estee, L Patsy GRID TRIMMER Unavailable Unavailable Estee, L Patsy GRID TRIMMER Unavailable Unavailable Estee, L Patsy GRID TRIMMER Unavailable Unavailable Estee, L Patsy GRID TRIMMER Unavailable Unavailable Estee, L Patsy GRID TRIMMER Unavailable Unavailable Estee, L Patsy GRID TRIMMER Unavailable Unavailable Estee, L Patsy GRID TRIMMER Unavailable Unavailable Estee, L Patsy GRID TRIMMER Unavailable Unavailable Estee, L Patsy GRID TRIMMER Unavailable Unavailable Estee, L Patsy GRID TRIMMER Unavailable Unavailable Frances Miller, PA-C Unavailable Unavailabl e Fish, Frances Florencia MPAS, PA-C Unavailable Unavailabl e Fish, [facility], PA-C Unavailable Unavailabl e Fish, [facility], PA-C Unavailable Unavailabl e Fish, [facility], PA-C Unavailable Unavailabl e Fish, [facility], PA-C Unavailable Unavailabl e Fish, [facility], PA-C Unavailable Unavailabl e Fish, [facility], PA-C Unavailable Unavailabl e Fish, [facility], PA-C Unavailable Unavailabl e Fish, [facility], PA-C Unavailable Unavailabl e Fish, [facility], PA-C Unavailable Unavailabl e Fish, [facility], PA-C Unavailable Unavailabl e Fish, [facility], PA-C Unavailable Unavailabl e Fish, [facility], PA-C Unavailable Unavailabl e Fish, [facility], PA-C Unavailable Unavailabl e Fish, [facility], PA-C Unavailable Unavailabl e Fish, [facility], PA-C Unavailable Unavailabl e Fish, [facility], PA-C Unavailable Unavailabl e Fish, [facility], PA-C Unavailable Unavailabl e Fish, [facility], PA-C Unavailable Unavailabl e Fish, [facility], PA-C Unavailable Unavailabl e Fish, [facility], PA-C Unavailable Unavailabl e Fish, [facility], PA-C Unavailable Unavailabl e Fish, [facility], PA-C Unavailable Unavailabl e Fish, [facility], PA-C Unavailable Unavailabl e Fish, [facility], PA-C Unavailable Unavailabl e Fish, [facility], PA-C Unavailable Unavailabl e Fish, [facility], PA-C Unavailable Unavailabl e Fish, [facility], PA-C Unavailable Unavailabl e Fish, [facility], PA-C Unavailable Unavailabl e Fish, [facility], PA-C Unavailable Unavailabl e Fish, [facility], PA-C Unavailable Unavailabl e Fish, [facility], PA-C Unavailable Unavailabl e Fish, Frances Don [facility], PA-C Unavailable Unavailabl e Fish, Frances Don [facility], PA-C Unavailable Unavailabl e Fish, Frances Don [facility], PA-C Unavailable Unavailabl e Robin Jessica Unavailable Unavailable BRYSON, P CAIO MD Unavailable [...] P CAIO MD Unavailable Unavailable BRYSON, P ACIO MD Unavailable Unavailable BRYSON, P CAIO MD Unavailable Unavailable BRYSON, P CAIO MD Unavailable Unavailable BRYSON, P CAIO MD Unavailable Unavailable BRYSON, P CAIO MD Unavailable Unavailable BRYSON, P CAIO MD Unavailable Unavailable BRYSON, P CAIO MD Unavailable Unavailable Goutremout, Elizabeth Unavailable Vicki CRESPO MD Unavailable Unavailable Vicki CRESPO MD Unavailable Unavailable Vicki CRESPO MD Unavailable Unavailable Vicki CRESPO MD Unavailable Unavailable Vicki CRESPO MD Unavailable Unavailable Vicki CRESPO MD Unavailable Unavailable Vicki CRESPO MD Unavailable Unavailable Vicki CRESPO MD Unavailable Unavailable Vicki CRESPO MD Unavailable Unavailable NIZAR, Vicki HASSAN MD Unavailable Unavailable NIZAR, Vicki HASSAN MD Unavailable Unavailable NIZAR, Vicki HASSAN MD Unavailable Unavailable NIZAR, Vicki HASSAN MD Unavailable Unavailable NIZAR, Vicki HASSAN MD Unavailable Unavailable NIZAR, Vicki HASSAN MD Unavailable Unavailable NIZAR, Vicki HASSAN MD Unavailable Unavailable NIZAR, Vicki HASSAN MD Unavailable Unavailable NIZAR, Vicki HASSAN MD Unavailable Unavailable NIZAR, Vicki HASSAN MD Unavailable Unavailable Servage, L Zaina GRID TRIMMER Unavailable Unavailable Servage, L Zaina GRID TRIMMER Unavailable Unavailable Servage, L Zaina GRID TRIMMER Unavailable Unavailable Servage, L Zaina GRID TRIMMER Unavailable Unavailable Servage, L Zaina GRID TRIMMER Unavailable Unavailable Servage, L Zaina GRID TRIMMER Unavailable Unavailable Servage, L Zaina GRID TRIMMER Unavailable Unavailable Servage, L Zaina GRID TRIMMER Unavailable Unavailable Servage, L Zaina GRID TRIMMER Unavailable Unavailable Servage, L Zaina GRID TRIMMER Unavailable Unavailable Servage, L Zaina GRID TRIMMER Unavailable Unavailable Servage, L Zaina GRID TRIMMER Unavailable Unavailable Servage, L Zaina GRID TRIMMER Unavailable Unavailable Servage, L Zaina GRID TRIMMER Unavailable Unavailable Servage, L Zaina GRID TRIMMER Unavailable Unavailable Servage, L Zaina GRID TRIMMER Unavailable Unavailable Servage, L Zaina GRID TRIMMER Unavailable Unavailable Servage, L Zaina GRID TRIMMER Unavailable Unavailable Servage, L Zaina GRID TRIMMER Unavailable Unavailable Servage, L Zaina GRID TRIMMER Unavailable Unavailable Servage, L Zaina GRID TRIMMER Unavailable Unavailable Servage, L Zaina GRID TRIMMER Unavailable Unavailable Servage, L Zaina GRID TRIMMER Unavailable Unavailable Servage, L Zaina GRID TRIMMER Unavailable Unavailable Servage, L Zaina GRID TRIMMER Unavailable Unavailable Servage, L Zaina GRID TRIMMER Unavailable Unavailable Servage, L Zaina GRID TRIMMER Unavailable Unavailable Servage, L Zaina GRID TRIMMER Unavailable Unavailable Servage, L Zaina GRID TRIMMER Unavailable Unavailable Servage, L Zaina GRID TRIMMER Unavailable Unavailable Servage, L Zaina GRID TRIMMER Unavailable Unavailable Servage, L Zaina GRID TRIMMER Unavailable Unavailable Servage, L Zaina GRID TRIMMER Unavailable Unavailable Servage, L Zaina GRID TRIMMER Unavailable Unavailable Servage, L Zaina GRID TRIMMER Unavailable Unavailable Servage, L Zaina GRID TRIMMER Unavailable Unavailable Servage, L Zaina GRID TRIMMER Unavailable Unavailable Servage, L Zaina GRID TRIMMER Unavailable Unavailable Servage, L Zaina GRID TRIMMER Unavailable Unavailable Servage, L Zaina GRID TRIMMER Unavailable Unavailable Servage, L Zaina GRID TRIMMER Unavailable Unavailable Servage, L Zaina GRID TRIMMER Unavailable Unavailable Servage, L Zaina GRID TRIMMER Unavailable Unavailable Servage, L Zaina GRID TRIMMER Unavailable Unavailable Servage, L Zaina GRID TRIMMER Unavailable Unavailable Servage, L Zaina GRID TRIMMER Unavailable Unavailable Servage, L Zaina GRID TRIMMER Unavailable Unavailable Servage, L Zaina GRID TRIMMER Unavailable Unavailable Servage, L Zaina GRID TRIMMER Unavailable Unavailable Servage, L Zaina GRID TRIMMER Unavailable Unavailable Servage, L Zaina GRID TRIMMER Unavailable Unavailable Servage, L Zaina GRID TRIMMER Unavailable Unavailable Servage, L Zaina GRID TRIMMER Unavailable Unavailable Servage, L Zaina GRID TRIMMER Unavailable Unavailable Servage, L Zaina GRID TRIMMER Unavailable Unavailable Servage, L Zaina GRID TRIMMER Unavailable Unavailable Servage, L Zaina GRID TRIMMER Unavailable Unavailable Servage, L Zaina GRID TRIMMER Unavailable Unavailable Servage, L Zaina GRID TRIMMER Unavailable Unavailable Servage, L Zaina GRID TRIMMER Unavailable Unavailable Servage, L Zaina GRID TRIMMER Unavailable Unavailable Servage, L Zaina GRID TRIMMER Unavailable Unavailable Servage, L Zaina GRID TRIMMER Unavailable Unavailable Servage, L Zaina GRID TRIMMER Unavailable Unavailable Servage, L Zaina GRID TRIMMER Unavailable Unavailable HAYLEE BLANCA MD Unavailable Unavailable HAYLEE BLANCA MD Unavailable Unavailable HAYLEE BLANCA MD Unavailable Unavailable HAYLEE BLANCA MD Unavailable Unavailable HAYLEE BLANCA MD Unavailable Unavailable HAYLEE BLANCA MD Unavailable Unavailable HAYLEE BLANCA MD Unavailable Unavailable HAYLEE BLANCA MD Unavailable Unavailable Fish, B Carlos LEMONS Unavailable Unavailable Fish, B Carlos LEMONS Unavailable Unavailable Fish, B Carlos LEMONS Unavailable Unavailable Fish, B Carlos LEMONS Unavailable Unavailable Fish, B Carlos LEMONS Unavailable Unavailable Fish, B Carlos LEMONS Unavailable Unavailable Fish, B Carlos LEMONS Unavailable Unavailable Fish, B Calros LEMONS Unavailable Unavailable Fish, B Carlos LEMONS [...] B Carlos LEMONS Unavailable Unavailable Fish, B Carols LEMONS Unavailable Unavailable Fish, B Carlos LEMONS Unavailable Unavailable Fish, B Carlos LEMONS Unavailable Unavailable Fish, B Cralos LEMONS Unavailable Unavailable Fish, B Carlos LEMONS Unavailable Unavailable Fish, B Carlos LEMONS Unavailable Unavailable Fish, B Carlos LEMONS Unavailable Unavailable Fish, B Carlos LEMONS Unavailable Unavailable Fish, B Carlos LEMONS Unavailable Unavailable Fish, B Carlos LEMONS Unavailable Unavailable Cabrera, P Dustin Unavailable Cabrera, P Dustin Unavailable Dille, E Kasandra DDS Unavailable Unavailable Dille, E Kasandra DDS Unavailable Unavailable Dille, E Kasandra DDS Unavailable Unavailable Dille, E Kasandra DDS Unavailable Unavailable MACQUEEN, KEMI GRID TRIMMER Unavailable Unavailable MACQUEEN, KEMI GRID TRIMMER Unavailable Unavailable MACQUEEN, KEMI GRID TRIMMER Unavailable Unavailable MACQUEEN, KEMI GRID TRIMMER Unavailable Unavailable MACQUEEN, KEMI GRID TRIMMER Unavailable Unavailable MACQUEEN, KEMI GRID TRIMMER Unavailable Unavailable MACQUEEN, KEMI GRID TRIMMER Unavailable Unavailable MACQUEEN, KEMI GRID TRIMMER Unavailable Unavailable MACQUEEN, KEMI GRID TRIMMER Unavailable Unavailable MACQUEEN, KEMI GRID TRIMMER Unavailable Unavailable CABRERA, P DUSTIN Unavailable Unavailable Re-disclosure Warning The records that [...] is protected by Article 27-F of the [facility] Public Health law. If you continue you may have access to information: Regarding HIV / AIDS; Provided by facilities licensed or operated by the [facility] Office of Mental Health; or Provided by the [facility] Office for People With Developmental Disabilities. If such information is present, then the following [facility] mandated warning applies: This information has been [...] Attender: CAIO MASSEY MD 09/06/2021 12:00:00 AM [facility] Unknown [address] [facility] [place] [address] 07/06/2021 12:00:00 AM EST eCW1 ([facility]) Outpatient [address] [facility] [place] [address] 07/01/2021 12:00:00 AM EDT eCW1 ([facility]) Unknown [address] [facility] [address] 06/30/2021 12:00:00 AM EDT eCW1 ([facility]) Extended Individual Psychotherapy - 45 min Attender: Rianna Mckeon [facility] 06/29/2021 01:00:00 AM EDT - 06/29/2021 01:00:00 AM EDT [facility] ([facility]) Attender: Robin Jessica 06/29/2021 12:00:00 AM E DT [facility] ([facility]) Inpatient Attender: Dustin Banda er: DUSTIN CABRERAAttender: HAYLEE BLANCA MDAttender: MO CRESPO MDAdmitter: MO CRESPO MDReferrer: MO CRESPO MD [id number] 06/19/2021 12:00:00 AM EDT - 06/24/2021 12:42:[address] [facility] Patient discharged. Outpatient Attender: KEMI GREY NP [facility] [place] 06/16/2021 11:30:00 AM EDT - 06/16/2021 11:30:00 AM EDT [facility] ([facility]) Unknown [address] [facility] [address] 06/16/2021 12:00:00 AM EDT eCW1 ([facility]) Unknown [address] [facility] [address] 06/16/2021 12:00:00 AM EDT eCW1 ([facility]) Attender: KEMI GREY NP 06/16/2021 12:00:00 AM EDT [facility] ([facility]) Unknown [address] [facility] [address] 06/15/2021 12:00:00 AM EDT eCW1 ([facility]) Extended Individual Psychotherapy - 45 min Attender: Michelle Ghosh [facility] [place] 06/11/2021 12:45:00 PM EDT - 06/11/2021 12:45:00 PM EDT [facility] ([facility]) Attender: Elizabeth Ghosh 06/11/2021 12:00:0 0 AM EDT [facility] ([facility]) Unknown [address] [facility] [address] 06/07/2021 12:00:00 AM EDT eCW1 ([facility]) Unknown [address] [facility] [address] 06/03/2021 12:00:00 AM EDT eCW1 ([facility]) Unknown [address] [facility] [address] 05/31/2021 12:00:00 AM EDT eCW1 ([facility]) Unknown [address] [facility] [address] 05/25/2021 12:00:00 AM EDT eCW1 ([facility]) Unknown [address] [facility] [address] 05/25/2021 12:00:00 AM EDT eCW1 ([facility]) Extended Individual Psychotherapy - 45 min Attender: Michelle Ghosh [facility] 05/20/2021 02:30:00 AM EDT - 05/20/2021 02:30:00 AM EDT [facility] ([facility]) Attender: Elizabeth Ghosh 05/20/2021 12:00:0 0 AM EDT [facility] ([facility]) Unknown [address] [facility] [address] 05/17/2021 12:00:00 AM EDT [facility] [place] [address] [facility] [address] 05/17/2021 12:00:00 AM EDT eCW1 ([facility]) Unknown [address] [facility] [address] 05/11/2021 12:00:00 AM EDT eCW1 [facility] Attender: KEMI GREY NP 04/29/2021 12:00:00 AM EDT [facility] ([facility]) Outpatient Attender: KEMI GREY NP [facility] 04/28/2021 10:30:00 AM EDT - 04/28/2021 10:30:00 AM EDT [facility] ([facility]) Office Visit, Est Pt., Level 3 PC [address] [place] [address] 04/26/2021 12:00:00 AM EDT eCW1 ([facility]) Unknown [address] [facility], [facility] [address] 04/16/2021 12:00:00 AM EDT eCW1 ([facility]) Outpatient Attender: KEMI GREY NP [facility] 04/14/2021 10:30:00 AM EDT - 04/14/2021 10:30:00 AM EDT [facility] ([facility]) Attender: KEMI GREY NP 04/14/2021 12:00:00 AM EDT [facility] ([facility]) Unknown [address] [facility], [facility] [address] 04/14/2021 12:00:00 AM EDT eCW1 ([facility]) Extended Individual Psychotherapy - 45 min Attender: Michelle Ghosh [facility] 03/26/2021 01:00:00 AM EDT - 03/26/2021 01:00:00 AM EDT [facility] ([facility]) Attender: Elizabeth Ghosh 03/26/2021 12:00:0 0 AM EDT [facility] ([facility]) Unknown [address] [facility], [facility] [address] 03/18/2021 12:00:00 AM EDT eCW1 ([facility]) Office Visit, Est Pt., Level 2 FC [address] [place] [address] 03/10/2021 12:00:00 AM EDT eCW1 ([facility]) Outpatient Attender: CAIO MASSEY MD [id number] 12:00:00 AM EDT - 03/22/2021 10:36:[address] [facility] Unknown [address] [facility] [address] 03/05/2021 12:00:00 AM EDT eCW1 ([facility]) Outpatient Attender: Patsy Grayson/Ramón/Benton/Reinvalente 03/03/2021 11:00:00 AM EDT [facility] ([facility]) Unknown [address] [facility], [place] [address] 01/06/2021 12:00:00 AM EDT eCW1 ([facility]) Office Visit Attender: Florencia HARRISON PA-C Physical Therapy 12/30/2020 09:15:00 AM EDT [facility] ([facility]) Unknown [address] [facility] [address] 12/28/2020 12:00:00 AM EDT eCW1 ([facility]) Outpatient Attender: KEMI GREY NP [facility] 12/23/2020 11:30:00 AM EDT - 12/23/2020 11:30:00 AM EDT [facility] ([facility]) Attender: KEMI GREY NP 12/23/2020 12:00:00 AM EDT [facility] ([facility]) Extended Individual Psychotherapy - 45 min Attender: Michelle Ghosh [facility] 12/21/2020 02:00:00 AM EDT - 12/21/2020 02:00:00 AM EDT [facility] ([facility]) Attender: Elizabeth Ghosh 12/21/2020 12:00:0 0 AM EDT [facility] ([facility]) Office Visit Attender: Florencia HARRISON PA-C Physical Therapy 12/18/2020 01:00:00 PM EDT [facility] ([facility]) Outpatient Attender: Carlos Miller MD Physical Therapy 12/14/2020 0 1:45:00 PM EDT [facility] ([facility]) Unknown [address] [facility] [address] 12/08/2020 12:00:00 AM EDT [facility] Unknown [address] [facility] [place] [address] 12/07/2020 12:00:00 AM EDT eCW1 ([facility]) Unknown [address] [facility] [address] 12/04/2020 12:00:00 AM EDT eCW1 ([facility]) Outpatient Attender: CAIO YEEeferrer: Zaina Hernández GRID TRIMMER [id number] 11/30/2020 12:00:00 AM EDT - 11/30/2020 02:32:[address] [facility] Extended Individual Psychotherapy - 45 min [facility]/27/2020 02:30:00 AM EDT - 11/27/2020 02:30:00 AM EDT [facility] ([facility]) Attender: Elizabeth Ghosh 11/27/2020 12:00:0 0 AM EDT [facility] ([facility]) Extended Individual Psychotherapy - 45 min Attender: Michelle kendall [facility] 11/10/2020 02:00:00 AM EDT - 11/10/2020 02:00:00 AM EDT [facility] ([facility]) Unknown [address] [facility] [address] 11/10/2020 12:00:00 AM EDT [facility] Attender: Elizabeth Ghosh 11/10/2020 12:00:0 0 AM EDT [facility] ([facility]) Unknown [address] [facility] [address] 11/09/2020 12:00:00 AM EDT eCW1 ([facility]) Unknown [address] [facility] [address] 11/09/2020 12:00:00 AM EDT eCW1 ([facility]) Unknown [address] [facility] [address] 11/04/2020 12:00:00 AM EST [facility] [id number]"Psychotherapy Attender: Elizabeth Ghosh [facility] 10/23/2020 01:00:00 AM EST - 10/23/2020 01:00:00 AM EST [facility] ([facility]) Attender: Elizabeth Ghosh 10/23/2020 12:00:0 0 AM EST [facility] ([facility]) Unknown [address] [facility] [address] 10/19/2020 12:00:00 AM EST [facility]CW1 [facility]) Unknown [address] [facility] [place] [address] 10/14/2020 12:00:00 AM EST [facility]CW1 [facility]) Unknown [address] [facility] [place] [address] 10/12/2020 12:00:00 AM EST [facility]CW1 [facility]) Unknown [address] [facility] [place] [address] 10/09/2020 12:00:00 AM EST [facility]CW1 [facility]) Unknown [address] [facility] [place] [address] 10/09/2020 12:00:00 AM EST eCW1 [facility]) Office Visit, Est Pt., Level 4 PC [address] [place] [address] 10/08/2020 12:00:00 AM EST eCW1 ([facility]) Extended Individual Psychotherapy - 45 min Attender: Michelle Ghosh [facility] 10/05/2020 03:45:00 AM EST - 10/05/2020 03:45:00 AM EST [facility] ([facility]) Attender: Elizabeth Ghosh 10/05/2020 12:00:0 0 AM EST [facility] ([facility]) Unknown [address] [facility] [place] [address] 09/29/2020 12:00:00 AM EST eCW1 ([facility]) Outpatient Attender: KEMI GREY NP [facility] 09/16/2020 11:00:00 AM EST - 09/16/2020 11:00:00 AM EST [facility] ([facility]) Unknown [address] [facility] [address] 09/16/2020 12:00:00 AM EST eCW1 ([facility]) Attender: KEMI GREY NP 09/16/2020 12:00:00 AM EST [facility] ([facility]) Unknown [address] [facility] [place] [address] 09/11/2020 12:00:00 AM EST eCW1 ([facility]) Unknown [address] [facility] [place] [address] 09/02/2020 12:00:00 AM EST eCW1 ([facility]) Extended Individual Psychotherapy - 45 min Attender: iMchelle Ghosh [facility] 08/27/2020 02:00:00 AM EST - 08/27/2020 02:00:00 AM EST [facility] ([facility]) Attender: Elizabeth Ghosh 08/27/2020 12:00:0 0 AM EST [facility] ([facility]) Unknown [address] [facility] [place] [address] 08/10/2020 12:00:00 AM EST eCW1 ([facility]) Extended Individual Psychotherapy - 45 min Attender: Michelle Ghosh [facility] 08/07/2020 01:00:00 AM EST - 08/07/2020 01:00:00 AM EST [facility] ([facility]) Attender: Elizabeth Ghosh 08/07/2020 12:00:0 0 AM EST [facility] ([facility]) Outpatient Attender: KEMI GREY NP [facility] Joe corrales 08/05/2020 11:00:00 AM EST - 08/05/2020 11:00:00 AM EST [facility] ([facility]) Attender: KEMI GREY NP 08/05/2020 12:00:00 AM EST [facility] ([facility]) Unknown [address] [facility] [place] [address] 07/20/2020 12:00:00 AM EST [facility] Unknown [address] [facility] [place] [address] 07/08/2020 12:00:00 AM EST eCW1 ([facility]) Unknown [address] [facility] [place] [address] 07/03/2020 12:00:00 AM EST eCW1 ([facility]) Unknown [address] [facility] [place] [address] 07/01/2020 12:00:00 AM EST eCW1 ([facility]) TEMPMHCTelemed 30" Psychotherapy Attender: Elizabeth trammell [facility] 06/29/2020 01:50:00 AM EST - 06/29/2020 01:50:00 AM EST [facility] ([facility]) Attender: Elizabeth Ghosh 06/29/2020 12:00:0 0 AM EST [facility] ([facility]) Extended Individual Psychotherapy - 45 min Attender: Michelle Ghosh [facility] 06/26/2020 01:00:00 AM EDT - 06/26/2020 01:00:00 AM EDT [facility] ([facility]) Attender: Elizabeth Ghosh 06/26/2020 12:00:0 0 AM EDT [facility] ([facility]) [place] [address] [address] 06/23/2020 12:00:00 AM EDT eCW1 ([facility]) Outpatient [address] [address] 06/16/2020 12:00:00 AM EDT eCW1 ([facility]) Outpatient [address] [facility], [facility] [address] 06/15/2020 12:00:00 AM EDT eCW1 ([facility]) Extended Individual Psychotherapy - 45 min Attender: Michelleaydin Ghosh [facility] 06/09/2020 02:45:00 AM EDT - 06/09/2020 02:45:00 AM EDT [facility] ([facility]) Attender: Elizabeth Ghosh 06/09/2020 12:00:0 0 AM EDT [facility] ([facility]) Office Visit, Est Pt., Level 3 PC [address] [place] [address] 06/08/2020 12:00:00 AM EDT eCW1 ([facility]) Outpatient Attender: CAIO MASSEY MDReferrer: Zaina Hernández [employer] [id number] 06/02/2020 12:00:00 AM EDT - 06/02/2020 12:27:43 PM EDT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 Extended Individual Psychotherapy - 45 min Attender: Michelle Ghosh [facility] 05/26/2020 02:30:00 AM EDT - 05/26/2020 02:30:00 AM EDT [facility] ([facility]) Attender: Elizabeth Ghosh 05/26/2020 12:00:0 0 AM EDT [facility] ([facility]) Outpatient Attender: KEMI GREY NP [facility] corrales 05/21/2020 10:00:00 AM EDT - 05/21/2020 10:00:00 AM EDT [facility] ([facility]) Attender: KEMI GREY NP 05/21/2020 12:00:00 AM EDT [facility] ([facility]) Office Visit Attender: Florencia HARRISON PA-C Physical Therapy 05/14/2020 08:30:00 AM EDT [facility] ([facility]) Outpatient Attender: Kasandra Bull DDS [facility] 05/14/2020 07:14:01 A M EDT [facility] Outpatient Attender: Kasandra Bull DDS [facility] 05/13/2020 10:11:00 A M EDT [facility] Outpatient Attender: Kasandra Bull DDS [facility] 05/13/2020 08:40:00 A M EDT [facility] Outpatient Attender: Kasandra Bull DDS [facility] 05/12/2020 03:58:00 P M EDT [facility] Functional Status Immunizations Vaccine Date Status Description Data Source(s) IIV3. This is one of two codes replacing CVX 15, which is being retired. 04/29/2021 03:13:00 PM EDT completed eCW1 ([facility]) IIV3. This is one of two codes replacing CVX 15, which is being retired. 04/29/2021 03:13:00 PM EDT completed eCW1 ([facility]) IIV3. This is one of two codes replacing CVX 15, which is being retired. 04/29/2021 03:13:00 PM EDT completed eCW1 ([facility]) IIV3. This is one of two codes replacing CVX 15, which is being retired. 04/29/2021 03:13:00 PM EDT completed eCW1 ([facility]) influenza, recombinant, quadrIvalent,injectable, prese rvative free 06/16/2020 03:29:00 PM EDT completed eCW1 ([facility]) influenza, recombinant, quadrIvalent,injectable, prese rvative free 06/16/2020 03:29:00 PM EDT completed eCW1 ([facility]) influenza, recombinant, quadrIvalent,injectable, prese rvative free 06/16/2020 03:29:00 PM EDT completed eCW1 ([facility]) influenza, recombinant, quadrIvalent,injectable, prese rvative free 06/16/2020 03:29:00 PM EDT completed eCW1 ([facility]) influenza, recombinant, quadrIvalent,injectable, prese rvative free 06/16/2020 03:29:00 PM EDT completed eCW1 ([facility]) influenza, recombinant, quadrIvalent,injectable, prese rvative free 06/16/2020 03:29:00 PM EDT completed eCW1 ([facility]) influenza, recombinant, quadrIvalent,injectable, prese rvative free 06/16/2020 03:29:00 PM EDT completed eCW1 ([facility]) influenza, recombinant, quadrIvalent,injectable, prese rvative free 06/16/2020 03:29:00 PM EDT completed eCW1 ([facility]) influenza, recombinant, quadrIvalent,injectable, prese rvative free 06/16/2020 03:29:00 PM EDT completed eCW1 ([facility]) influenza, recombinant, quadrIvalent,injectable, prese rvative free 06/16/2020 03:29:00 PM EDT completed eCW1 ([facility]) influenza, recombinant, quadrIvalent,injectable, prese rvative free 06/16/2020 03:29:00 PM EDT completed eCW1 ([facility]) influenza, recombinant, quadrIvalent,injectable, prese rvative free 06/16/2020 03:29:00 PM EDT completed eCW1 ([facility]) influenza, recombinant, quadrIvalent,injectable, prese rvative free 06/16/2020 03:29:00 PM EDT completed eCW1 ([facility]) influenza, recombinant, quadrIvalent,injectable, prese rvative free 06/16/2020 03:29:00 PM EDT completed eCW1 ([facility]) influenza, recombinant, quadrIvalent,injectable, prese rvative free 06/16/2020 03:29:00 PM EDT completed eCW1 ([facility]) influenza, recombinant, quadrIvalent,injectable, prese rvative free 06/16/2020 03:29:00 PM EDT completed eCW1 ([facility]) influenza, recombinant, quadrIvalent,injectable, prese rvative free 06/16/2020 03:29:00 PM EDT completed eCW1 ([facility]) influenza, recombinant, quadrIvalent,injectable, prese rvative free 06/16/2020 03:29:00 PM EDT completed eCW1 ([facility]) influenza, recombinant, quadrIvalent,injectable, prese rvative free 06/16/2020 03:29:00 PM EDT completed eCW1 ([facility]) influenza, recombinant, quadrIvalent,injectable, prese rvative free 06/16/2020 03:29:00 PM EDT completed eCW1 ([facility]) influenza, recombinant, quadrIvalent,injectable, prese rvative free 06/16/2020 03:29:00 PM EDT completed eCW1 ([facility]) influenza, recombinant, quadrIvalent,injectable, prese rvative free 06/16/2020 03:29:00 PM EDT completed eCW1 ([facility]) influenza, recombinant, quadrIvalent,injectable, prese rvative free 06/16/2020 03:29:00 PM EDT completed eCW1 ([facility]) influenza, recombinant, quadrIvalent,injectable, prese rvative free 06/16/2020 03:29:00 PM EDT completed eCW1 ([facility]) influenza, recombinant, quadrIvalent,injectable, prese rvative free 06/16/2020 03:29:00 PM EDT completed eCW1 ([facility]) influenza, recombinant, quadrIvalent,injectable, prese rvative free 06/16/2020 03:29:00 PM EDT completed eCW1 ([facility]) influenza, recombinant, quadrIvalent,injectable, prese rvative free 06/16/2020 03:29:00 PM EDT completed eCW1 ([facility]) influenza, recombinant, quadrIvalent,injectable, prese rvative free 06/16/2020 03:29:00 PM EDT completed eCW1 ([facility]) influenza, recombinant, quadrIvalent,injectable, prese rvative free 06/16/2020 03:29:00 PM EDT completed eCW1 ([facility]) influenza, recombinant, quadrIvalent,injectable, prese rvative free 06/16/2020 03:29:00 PM EDT completed eCW1 ([facility]) influenza, recombinant, quadrIvalent,injectable, prese rvative free 06/16/2020 03:29:00 PM EDT completed eCW1 ([facility]) influenza, recombinant, quadrIvalent,injectable, prese rvative free 06/16/2020 03:29:00 PM EDT completed eCW1 ([facility]) influenza, recombinant, quadrIvalent,injectable, prese rvative free 06/16/2020 03:29:00 PM EDT completed eCW1 ([facility]) influenza, recombinant, quadrIvalent,injectable, prese rvative free 06/16/2020 03:29:00 PM EDT completed eCW1 ([facility]) influenza, recombinant, quadrIvalent,injectable, prese rvative free 06/16/2020 03:29:00 PM EDT completed eCW1 ([facility]) influenza, recombinant, quadrIvalent,injectable, prese rvative free 06/16/2020 03:29:00 PM EDT completed eCW1 ([facility]) influenza, recombinant, quadrIvalent,injectable, prese rvative free 06/16/2020 03:29:00 PM EDT completed eCW1 ([facility]) influenza, recombinant, quadrIvalent,injectable, prese rvative free 06/16/2020 03:29:00 PM EDT completed eCW1 ([facility]) influenza, recombinant, quadrIvalent,injectable, prese rvative free 06/16/2020 03:29:00 PM EDT completed eCW1 ([facility]) influenza, recombinant, quadrIvalent,injectable, prese rvative free 06/16/2020 03:29:00 PM EDT completed eCW1 ([facility]) influenza, recombinant, quadrIvalent,injectable, prese rvative free 06/16/2020 03:29:00 PM EDT completed eCW1 ([facility]) influenza, recombinant, quadrIvalent,injectable, prese rvative free 06/16/2020 03:29:00 PM EDT completed eCW1 ([facility]) influenza, recombinant, quadrIvalent,injectable, prese rvative free 06/16/2020 03:29:00 PM EDT completed eCW1 ([facility]) influenza, recombinant, quadrIvalent,injectable, prese rvative free 06/16/2020 03:29:00 PM EDT completed eCW1 ([facility]) influenza, recombinant, quadrIvalent,injectable, prese rvative free 06/16/2020 03:29:00 PM EDT completed eCW1 ([facility]) influenza, recombinant, quadrIvalent,injectable, prese rvative free 06/16/2020 03:29:00 PM EDT completed eCW1 ([facility]) influenza, recombinant, quadrIvalent,injectable, prese rvative free 06/16/2020 03:29:00 PM EDT completed eCW1 ([facility]) influenza, recombinant, quadrIvalent,injectable, prese rvative free 06/16/2020 03:29:00 PM EDT completed eCW1 ([facility]) Medications Medication Brand Name Start Date Product Form Dose Route Admi nistrative Instructions Pharmacy Instructions Status Indications Reaction Description Data Source(s) Fluocinonide 0.5 MG/ML Topical Solution Fluocinonide 0.05 % Fluocinonide 0.05 % 06/03/2021 12:00:00 AM EDT 1.0 {application} act felecia Fluocinonide 0.05 % eCW1 (Pending Sale To [facility]) Triamcinolone Acetonide 0.001 MG/MG Topi jimmy Ointment Triamcinolone Acetonide 0.1 % Triamcinolone Acetonide 0.1 % 06/03/2021 12:00:00 AM EDT 1.0 {application} active Triamcinolone Aceton damon 0.1 % eCW1 (Pending Sale To [facility]) Fluocinonide 0.5 MG/ML Topical Solution Fluocinonide 0.05 % Fluocinonide 0.05 % 06/03/2021 12:00:00 AM EDT 1.0 {application} act felecia Fluocinonide 0.05 % eCW1 (Pending Sale To [facility]) Fluocinonide 0.5 MG/ML Topical Solution Fluocinonide 0.05 % Fluocinonide 0.05 % 06/03/2021 12:00:00 AM EDT 1.0 {application} act felecia Fluocinonide 0.05 % eCW1 (Pending Sale To [facility]) Fluocinonide 0.5 MG/ML Topical Solution Fluocinonide 0.05 % Fluocinonide 0.05 % 06/03/2021 12:00:00 AM EDT 1.0 {application} act felecia Fluocinonide 0.05 % eCW1 (Pending Sale To [facility]) Triamcinolone Acetonide 0.001 MG/MG Topi jimmy Ointment Triamcinolone Acetonide 0.1 % Triamcinolone Acetonide 0.1 % 06/03/2021 12:00:00 AM EDT 1.0 {application} active Triamcinolone Aceton damon 0.1 % eCW1 (Pending Sale To [facility]) Fluocinonide 0.5 MG/ML Topical Solution Fluocinonide 0.05 % Fluocinonide 0.05 % 06/03/2021 12:00:00 AM EDT 1.0 {application} act felecia Fluocinonide 0.05 % eCW1 (Pending Sale To [facility]) Fluocinonide 0.5 MG/ML Topical Solution Fluocinonide 0.05 % Fluocinonide 0.05 % 06/03/2021 12:00:00 AM EDT 1.0 {application} act felecia Fluocinonide 0.05 % eCW1 (Pending Sale To [facility]) Triamcinolone Acetonide 0.001 MG/MG Topi jimmy Ointment Triamcinolone Acetonide 0.1 % Triamcinolone Acetonide 0.1 % 06/03/2021 12:00:00 AM EDT 1.0 {application} active Triamcinolone Aceton damon 0.1 % eCW1 (Pending Sale To [facility]) Triamcinolone Acetonide 0.001 MG/MG Topi jimmy Ointment Triamcinolone Acetonide 0.1 % Triamcinolone Acetonide 0.1 % 06/03/2021 12:00:00 AM EDT 1.0 {application} active Triamcinolone Aceton damon 0.1 % eCW1 (Pending Sale To [facility]) Triamcinolone Acetonide 0.001 MG/MG Topi jimmy Ointment Triamcinolone Acetonide 0.1 % Triamcinolone Acetonide 0.1 % 06/03/2021 12:00:00 AM EDT 1.0 {application} active Triamcinolone Aceton damon 0.1 % eCW1 (Pending Sale To [facility]) Triamcinolone Acetonide 0.001 MG/MG Topi jimmy Ointment Triamcinolone Acetonide 0.1 % Triamcinolone Acetonide 0.1 % 06/03/2021 12:00:00 AM EDT 1.0 {application} active Triamcinolone Aceton damon 0.1 % eCW1 (Pending Sale To [facility]) Fluocinonide 0.5 MG/ML Topical Solution Fluocinonide 0.05 % Fluocinonide 0.05 % 06/03/2021 12:00:00 AM EDT 1.0 {application} act felecia Fluocinonide 0.05 % eCW1 (Pending Sale To [facility]) Triamcinolone Acetonide 0.001 MG/MG Topi jimmy Ointment Triamcinolone Acetonide 0.1 % Triamcinolone Acetonide 0.1 % 06/03/2021 12:00:00 AM EDT 1.0 {application} active Triamcinolone Aceton damon 0.1 % eCW1 (Pending Sale To [facility]) Fluocinonide 0.5 MG/ML Topical Solution Fluocinonide 0.05 % Fluocinonide 0.05 % 06/03/2021 12:00:00 AM EDT 1.0 {application} act felecia Fluocinonide 0.05 % eCW1 (Pending Sale To [facility]) Fluocinonide 0.5 MG/ML Topical Solution Fluocinonide 0.05 % Fluocinonide 0.05 % 06/03/2021 12:00:00 AM EDT 1.0 {application} act felecia Fluocinonide 0.05 % eCW1 (Pending Sale To [facility]) Triamcinolone Acetonide 0.001 MG/MG Topi jimmy Ointment Triamcinolone Acetonide 0.1 % Triamcinolone Acetonide 0.1 % 06/03/2021 12:00:00 AM EDT 1.0 {application} active Triamcinolone Aceton damon 0.1 % eCW1 (Pending Sale To [facility]) Triamcinolone Acetonide 0.001 MG/MG Topi jimmy Ointment Triamcinolone Acetonide 0.1 % Triamcinolone Acetonide 0.1 % 06/03/2021 12:00:00 AM EDT 1.0 {application} active Triamcinolone Aceton damon 0.1 % eCW1 (Pending Sale To [facility]) Triamcinolone Acetonide 0.001 MG/MG Topi jimmy Ointment Triamcinolone Acetonide 0.1 % Triamcinolone Acetonide 0.1 % 06/03/2021 12:00:00 AM EDT 1.0 {application} active Triamcinolone Aceton damon 0.1 % eCW1 (Pending Sale To [facility]) Fluocinonide 0.5 MG/ML Topical Solution Fluocinonide 0.05 % Fluocinonide 0.05 % 06/03/2021 12:00:00 AM EDT 1.0 {application} act felecia Fluocinonide 0.05 % eCW1 (Pending Sale To [facility]) Amlodipine 5 MG Oral Tablet Amlodipine Besylate 5 MG Amlodip ine Besylate 5 MG 05/17/2021 12:00:00 AM EDT 1.0 {tablet} active Amlodipine Besylate 5 MG eCW1 (Pending Sale To [facility]) Amlodipine 5 MG Oral Tablet Amlodipine Besylate 5 MG Amlodip ine Besylate 5 MG 05/17/2021 12:00:00 AM EDT 1.0 {tablet} active Amlodipine Besylate 5 MG eCW1 (Pending Sale To [facility]) Amlodipine 5 MG Oral Tablet Amlodipine Besylate 5 MG Amlodip ine Besylate 5 MG 05/17/2021 12:00:00 AM EDT 1.0 {tablet} active Amlodipine Besylate 5 MG eCW1 (Pending Sale To [facility]) 24 HR quetiapine 200 MG Extended Release Oral Tablet quetiap ine 05/13/2021 12:00:00 AM EDT 200 mg by mouth completed <td ID="MedicationRxNorm_2">385232</td><td ID="MedicationMedication_2">quetiapine</td><td ID="MedicationRoute_2">by mouth</td><td ID="MedicationRouteConcept_2">U26602</td><td ID="MedicationStartDate_2">05/13/2021</td><td ID="MedicationStopDate_2">08/11/2021</td><td ID="MedicationDosageFrequency_2">at bedtime</td><td ID="MedicationDuration_2">30</td><td ID="MedicationFormulaStrength_2">200 mg</td><td ID="MedicationDosageForm_2">tablet extended release 24 hr</td><td ID="MedicationDosageFormCode_2"></td><td ID="MedicationDosageDescription_2"></td><td ID="MedicationMedicationId_2">[id number]</td><td ID="MedicationAccount_2">[id number]</td><td ID="MedicationNpid_2">[id number]</td><td ID="MedicationAuthorFirstName_2">Kemi</td><td ID="MedicationAuthorLastName_2">MacQueen</td><td ID="MedicationTaxonomyCode_2">[id number]</td><td ID="MedicationTaxonomyDesc_2"> Psychiatric/Mental Health</td><td ID="MedicationPhoneNumber_2">[phone]</td> [facility] ([facility]) quetiapine 50 MG Oral Tablet quetiapine 05/13/2021 12:00:00 AM EDT 50 mg by mouth completed <td ID="Medica tionRxNorm_5">221567</td><td ID="MedicationMedication_5">quetiapine</td><td ID="MedicationRoute_5">by mouth</td><td ID="MedicationRouteConcept_5">W31665</td><td ID="MedicationStartDate_5">05/13/2021</td><td ID="MedicationStopDate_5">08/11/2021</td><td ID="MedicationDosageFrequency_5">twice a day</td><td ID="MedicationDuration_5">30</td><td ID="MedicationFormulaStrength_5">50 mg</td><td ID="MedicationDosageForm_5">tablet</td><td ID="MedicationDosageFormCode_5"></td><td ID="MedicationDosageDescription_5"></td><td ID="MedicationMedicationId_5">[id number]</td><td ID="MedicationAccount_5">[id number]</td><td ID="MedicationNpid_5">[id number]</td><td ID="MedicationAuthorFirstName_5">Kemi</td><td ID="MedicationAuthorLastName_5">MacQueen</td><td ID="MedicationTaxonomyCode_5">[id number]</td><td ID="MedicationTaxonomyDesc_5">Psychiatric/Mental Health</td><td ID="MedicationPhoneNumber_5">[phone]</td> [facility] ([facility]) 24 HR quetiapine 200 MG Extended Release Oral Tablet quetiap ine 05/13/2021 12:00:00 AM EDT 200 mg by mouth completed <td ID="MedicationRxNorm_4">[id number]</td><td ID="MedicationMedication_4">quetiapine</td><td ID="MedicationRoute_4">by mouth</td><td ID="MedicationRouteConcept_4">G24822</td><td ID="MedicationStartDate_4">05/13/2021</td><td ID="MedicationStopDate_4">08/11/2021</td><td ID="MedicationDosageFrequency_4">at bedtime</td><td ID="MedicationDuration_4">30</td><td ID="MedicationFormulaStrength_4">200 mg</td><td ID="MedicationDosageForm_4">tablet extended release 24 hr</td><td ID="MedicationDosageFormCode_4"></td><td ID="MedicationDosageDescription_4"></td><td ID="MedicationMedicationId_4">[id number]</td><td ID="MedicationAccount_4">[id number]</td><td ID="MedicationNpid_4">[id number]</td><td ID="MedicationAuthorFirstName_4">Kemi</td><td ID="MedicationAuthorLastName_4">MacQueen</td><td ID="MedicationTaxonomyCode_4">[id number]</td><td ID="MedicationTaxonomyDesc_4"> Psychiatric/Mental Health</td><td ID="MedicationPhoneNumber_4">[phone]</td> [facility] ([facility]) quetiapine 50 MG Oral Tablet quetiapine 05/13/2021 12:00:00 AM EDT 50 mg by mouth completed <td ID="Medica tionRxNorm_3">921453</td><td ID="MedicationMedication_3">quetiapine</td><td ID="MedicationRoute_3">by mouth</td><td ID="MedicationRouteConcept_3">U75895</td><td ID="MedicationStartDate_3">05/13/2021</td><td ID="MedicationStopDate_3">08/11/2021</td><td ID="MedicationDosageFrequency_3">twice a day</td><td ID="MedicationDuration_3">30</td><td ID="MedicationFormulaStrength_3">50 mg</td><td ID="MedicationDosageForm_3">tablet</td><td ID="MedicationDosageFormCode_3"></td><td ID="MedicationDosageDescription_3"></td><td ID="MedicationMedicationId_3">[id number]</td><td ID="MedicationAccount_3">[id number]</td><td ID="MedicationNpid_3">[id number]</td><td ID="MedicationAuthorFirstName_3">Kemi</td><td ID="MedicationAuthorLastName_3">MacQueen</td><td ID="MedicationTaxonomyCode_3">[id number]</td><td ID="MedicationTaxonomyDesc_3">Psychiatric/Mental Health</td><td ID="MedicationPhoneNumber_3">[phone]</td> [facility] ([facility] [place] Carbonate 300 MG Oral Tablet lithium carbonate 12:00:00 AM EDT 300 mg by mouth completed <td ID="MedicationRxNorm_4">394187</td><td ID="MedicationMedication_4">lithium carbonate</td><td ID="MedicationRoute_4">by mouth</td><td ID="MedicationRouteConcept_4">G04371</td><td ID="MedicationStartDate_4">05/13/2021</td><td ID="MedicationStopDate_4">07/12/2021</td><td ID="MedicationDosageFrequency_4">once a day</td><td ID="MedicationDuration_4">30</td><td ID="MedicationFormulaStrength_4">300 mg</td><td ID="MedicationDosageForm_4">tablet</td><td ID="MedicationDosageFormCode_4"></td><td ID="MedicationDosageDescription_4"></td><td ID="MedicationMedicationId_4">[id number]</td><td ID="MedicationAccount_4">[id number]</td><td ID="MedicationNpid_4">[id number]</td><td ID="MedicationAuthorFirstName_4">Kemi</td><td ID="MedicationAuthorLastName_4">MacQueen</td><td ID="MedicationTaxonomyCode_4">[id number]</td><td ID="MedicationTaxonomyDesc_4">Psychiatric/Mental Health</td><td ID="MedicationPhoneNumber_4">[phone]</td> [facility] ([facility]) [place] Carbonate 300 MG Oral Tablet lithium carbonate 12:00:00 AM EDT 300 mg by mouth completed <td ID="MedicationRxNorm_5">985315</td><td ID="MedicationMedication_5">lithium carbonate</td><td ID="MedicationRoute_5">by mouth</td><td ID="MedicationRouteConcept_5">E03625</td><td ID="MedicationStartDate_5">05/13/2021</td><td ID="MedicationStopDate_5">09/14/2021</td><td ID="MedicationDosageFrequency_5">once a day</td><td ID="MedicationDuration_5">30</td><td ID="MedicationFormulaStrength_5">300 mg</td><td ID="MedicationDosageForm_5">tablet</td><td ID="MedicationDosageFormCode_5"></td><td ID="MedicationDosageDescription_5"></td><td ID="MedicationMedicationId_5">[id number]</td><td ID="MedicationAccount_5">[id number]</td><td ID="MedicationNpid_5">[id number]</td><td ID="MedicationAuthorFirstName_5">Kemi</td><td ID="MedicationAuthorLastName_5">MacQueen</td><td ID="MedicationTaxonomyCode_5">[id number]</td><td ID="MedicationTaxonomyDesc_5">Psychiatric/Mental Health</td><td ID="MedicationPhoneNumber_5">[phone]</td> [facility] ([facility]) [place] Carbonate 300 MG Oral Tablet lithium carbonate 12:00:00 AM EDT 300 mg by mouth completed <td ID="MedicationRxNorm_2">211171</td><td ID="MedicationMedication_2">lithium carbonate</td><td ID="MedicationRoute_2">by mouth</td><td ID="MedicationRouteConcept_2">V32187</td><td ID="MedicationStartDate_2">05/13/2021</td><td ID="MedicationStopDate_2">07/12/2021</td><td ID="MedicationDosageFrequency_2">once a day</td><td ID="MedicationDuration_2">30</td><td ID="MedicationFormulaStrength_2">300 mg</td><td ID="MedicationDosageForm_2">tablet</td><td ID="MedicationDosageFormCode_2"></td><td ID="MedicationDosageDescription_2"></td><td ID="MedicationMedicationId_2">[id number]</td><td ID="MedicationAccount_2">[id number]</td><td ID="MedicationNpid_2">[id number]</td><td ID="MedicationAuthorFirstName_2">Kemi</td><td ID="MedicationAuthorLastName_2">MacQueen</td><td ID="MedicationTaxonomyCode_2">[id number]</td><td ID="MedicationTaxonomyDesc_2">Psychiatric/Mental Health</td><td ID="MedicationPhoneNumber_2">[phone]</td> [facility] ([facility]) Amlodipine 5 MG Oral Tablet amLODIPine Besylate 5 MG amLODIP ine Besylate 5 MG 05/10/2021 12:00:00 AM EDT 1.0 {tablet} active amLODIPine Besylate 5 MG eCW1 (Pending Sale To [facility]) Amlodipine 5 MG Oral Tablet amLODIPine Besylate 5 MG amLODIP ine Besylate 5 MG 05/10/2021 12:00:00 AM EDT 1.0 {tablet} active amLODIPine Besylate 5 MG eCW1 (Pending Sale To [facility]) Amlodipine 5 MG Oral Tablet amLODIPine Besylate 5 MG amLODIP ine Besylate 5 MG 05/10/2021 12:00:00 AM EDT 1.0 {tablet} active amLODIPine Besylate 5 MG eCW1 (Pending Sale To [facility]) [place]lewild Carbonate 300 MG Oral Capsule [place] Carbonate 300 MG 05/10/2021 12:00:00 AM EDT 1.0 {capsule_at_bedtime} active [place] Carbonate 300 MG eCW1 (Pending Sale To [facility]) [place] Carbonate 300 MG Oral Capsule [place] Carbonate 300 MG 05/10/2021 12:00:00 AM EDT 1.0 {capsule_at_bedtime} active [place] Carbonate 300 MG eCW1 (Pending Sale To [facility]) Amlodipine 5 MG Oral Tablet amLODIPine Besylate 5 MG amLODIP ine Besylate 5 MG 05/10/2021 12:00:00 AM EDT 1.0 {tablet} active amLODIPine Besylate 5 MG eCW1 (Pending Sale To [facility]) Amlodipine 5 MG Oral Tablet amLODIPine Besylate 5 MG amLODIP ine Besylate 5 MG 05/10/2021 12:00:00 AM EDT 1.0 {tablet} active amLODIPine Besylate 5 MG eCW1 (Pending Sale To [facility]) Sertraline 100 MG Oral Tablet [Zoloft] Zoloft 100 MG Zoloft 100 MG 05/10/2021 12:00:00 AM EDT 1.0 {tablet} active Zo loft 100 MG eCW1 (Pending Sale To [facility]) [place]le[place] Carbonate 300 MG Oral Capsule [place] Carbonate 300 MG 05/10/2021 12:00:00 AM EDT 1.0 {capsule_at_bedtime} active [place] Carbonate 300 MG eCW1 (Pending Sale To [facility]) Amlodipine 5 MG Oral Tablet amLODIPine Besylate 5 MG amLODIP ine Besylate 5 MG 05/10/2021 12:00:00 AM EDT 1.0 {tablet} active amLODIPine Besylate 5 MG eCW1 (Pending Sale To [facility]) [place] Carbonate 300 MG Oral Capsule [place] Carbonate 300 MG 05/10/2021 12:00:00 AM EDT 1.0 {capsule_at_bedtime} active [place] Carbonate 300 MG eCW1 (Pending Sale To [facility]) [place] Carbonate 300 MG Oral Capsule [place] Carbonate 300 MG 05/10/2021 12:00:00 AM EDT 1.0 {capsule_at_bedtime} active [place] Carbonate 300 MG eCW1 (Pending Sale To [facility]) Amlodipine 5 MG Oral Tablet amLODIPine Besylate 5 MG amLODIP ine Besylate 5 MG 05/10/2021 12:00:00 AM EDT 1.0 {tablet} active amLODIPine Besylate 5 MG eCW1 (Pending Sale To [facility]) [place] Carbonate 300 MG Oral Capsule [place] Carbonate 300 MG 05/10/2021 12:00:00 AM EDT 1.0 {capsule_at_bedtime} active [place] Carbonate 300 MG eCW1 (Pending Sale To [facility]) Sertraline 100 MG Oral Tablet [Zoloft] Zoloft 100 MG Zoloft 100 MG 05/10/2021 12:00:00 AM EDT 1.0 {tablet} active Zo loft 100 MG eCW1 (Pending Sale To [facility]) Amlodipine 5 MG Oral Tablet amLODIPine Besylate 5 MG amLODIP ine Besylate 5 MG 05/10/2021 12:00:00 AM EDT 1.0 {tablet} active amLODIPine Besylate 5 MG eCW1 (Pending Sale To [facility]) [place]le[place] Carbonate 300 MG Oral Capsule [place] Carbonate 300 MG 05/10/2021 12:00:00 AM EDT 1.0 {capsule_at_bedtime} active [place] Carbonate 300 MG eCW1 (Pending Sale To [facility]) Amlodipine 5 MG Oral Tablet amLODIPine Besylate 5 MG amLODIP ine Besylate 5 MG 05/10/2021 12:00:00 AM EDT 1.0 {tablet} active amLODIPine Besylate 5 MG eCW1 (Pending Sale To [facility]) [place] Carbonate 300 MG Oral Capsule [place] Carbonate 300 MG 05/10/2021 12:00:00 AM EDT 1.0 {capsule_at_bedtime} active [place] Carbonate 300 MG eCW1 (Pending Sale To [facility]) Amlodipine 5 MG Oral Tablet amLODIPine Besylate 5 MG amLODIP ine Besylate 5 MG 05/10/2021 12:00:00 AM EDT 1.0 {tablet} active amLODIPine Besylate 5 MG eCW1 (Pending Sale To [facility]) [place] Carbonate 300 MG Oral Capsule [place] Carbonate 300 MG 05/10/2021 12:00:00 AM EDT 1.0 {capsule_at_bedtime} active [place] Carbonate 300 MG eCW1 (Pending Sale To [facility]) Amlodipine 5 MG Oral Tablet amLODIPine Besylate 5 MG amLODIP ine Besylate 5 MG 05/10/2021 12:00:00 AM EDT 1.0 {tablet} active amLODIPine Besylate 5 MG eCW1 (Pending Sale To [facility]) Amlodipine 5 MG Oral Tablet amLODIPine Besylate 5 MG amLODIP ine Besylate 5 MG 05/10/2021 12:00:00 AM EDT 1.0 {tablet} active amLODIPine Besylate 5 MG eCW1 (Pending Sale To [facility]) Amlodipine 5 MG Oral Tablet amLODIPine Besylate 5 MG amLODIP ine Besylate 5 MG 05/10/2021 12:00:00 AM EDT 1.0 {tablet} active amLODIPine Besylate 5 MG eCW1 (Pending Sale To [facility]) Amlodipine 5 MG Oral Tablet amLODIPine Besylate 5 MG amLODIP ine Besylate 5 MG 05/10/2021 12:00:00 AM EDT 1.0 {tablet} active amLODIPine Besylate 5 MG eCW1 (Pending Sale To [facility]) [place] Carbonate 300 MG Oral Capsule [place] Carbonate 300 MG 05/10/2021 12:00:00 AM EDT 1.0 {capsule_at_bedtime} active [place] Carbonate 300 MG eCW1 (Pending Sale To [facility]) Sertraline 100 MG Oral Tablet [Zoloft] Zoloft 100 MG Zoloft 100 MG 05/10/2021 12:00:00 AM EDT 1.0 {tablet} active Zo loft 100 MG eCW1 (Pending Sale To [facility]) Lidocaine Hydrochloride 20 MG/ML Mucous Membrane Topical Solution Lidocaine Viscous HCl 2 % Lidocaine Viscous HCl 2 % 04/26/2021 12:00:00 AM EDT 15.0 {ml_as_needed} active Lidocaine Viscous HCl 2 % eCW1 (Pending Sale To [facility]) Lidocaine Hydrochloride 20 MG/ML Mucous Membrane Topical Solution Lidocaine Viscous HCl 2 % Lidocaine Viscous HCl 2 % 04/26/2021 12:00:00 AM EDT 15.0 {ml} active Lidocaine Viscous HCl 2 % eCW1 (Pending Sale To [facility]) Lidocaine Hydrochloride 20 MG/ML Mucous Membrane Topical Solution Lidocaine Viscous HCl 2 % Lidocaine Viscous HCl 2 % 04/26/2021 12:00:00 AM EDT 15.0 {ml_as_needed} active Lidocaine Viscous HCl 2 % eCW1 (Pending Sale To [facility]) Lidocaine Hydrochloride 20 MG/ML Mucous Membrane Topical Solution Lidocaine Viscous HCl 2 % Lidocaine Viscous HCl 2 % 04/26/2021 12:00:00 AM EDT 15.0 {ml_as_needed} active Lidocaine Viscous HCl 2 % eCW1 (Pending Sale To [facility]) Lidocaine Hydrochloride 20 MG/ML Mucous Membrane Topical Solution Lidocaine Viscous HCl 2 % Lidocaine Viscous HCl 2 % 04/26/2021 12:00:00 AM EDT 15.0 {ml_as_needed} active Lidocaine Viscous HCl 2 % eCW1 (Pending Sale To [facility]) Lidocaine Hydrochloride 20 MG/ML Mucous Membrane Topical Solution Lidocaine Viscous HCl 2 % Lidocaine Viscous HCl 2 % 04/26/2021 12:00:00 AM EDT 15.0 {ml_as_needed} active Lidocaine Viscous HCl 2 % eCW1 (Pending Sale To [facility]) Sertraline 100 MG Oral Tablet [Zoloft] Zoloft 03/29/2021 12:0 0:00 AM EDT 100 mg by mouth completed <td ID="Me dicationRxNorm_4">[id number]</td><td ID="MedicationMedication_4">Zoloft</td><td ID="MedicationRoute_4">by mouth</td><td ID="MedicationRouteConcept_4">[id number]</td><td ID="MedicationStartDate_4">03/29/2021</td><td ID="MedicationStopDate_4">09/14/2021</td><td ID="MedicationDosageFrequency_4">every morning</td><td ID="MedicationDuration_4">30</td><td ID="MedicationFormulaStrength_4">100 mg</td><td ID="MedicationDosageForm_4">tablet</td><td ID="MedicationDosageFormCode_4"></td><td ID="MedicationDosageDescription_4"> </td><td ID="MedicationMedicationId_4">[id number]</td><td ID="MedicationAccount_4">[id number]</td><td ID="MedicationNpid_4">[id number]</td><td ID="MedicationAuthorFirstName_4">Kemi</td><td ID="MedicationAuthorLastName_4">MacQueen</td><td ID="MedicationTaxonomyCode_4">[id number]</td><td ID="MedicationTaxonomyDesc_4">Psychiatric/Mental Health</td><td ID="MedicationPhoneNumber_4">[phone]</td> [facility] ([facility]) Sertraline 100 MG Oral Tablet [Zoloft] Zoloft 03/29/2021 12:0 0:00 AM EDT 100 mg by mouth completed <td ID="Me dicationRxNorm_3">[id number]</td><td ID="MedicationMedication_3">Zoloft</td><td ID="MedicationRoute_3">by mouth</td><td ID="MedicationRouteConcept_3">D36215</td><td ID="MedicationStartDate_3">03/29/2021</td><td ID="MedicationStopDate_3">07/13/2021</td><td ID="MedicationDosageFrequency_3">every morning</td><td ID="MedicationDuration_3">30</td><td ID="MedicationFormulaStrength_3">100 mg</td><td ID="MedicationDosageForm_3">tablet</td><td ID="MedicationDosageFormCode_3"></td><td ID="MedicationDosageDescription_3"> </td><td ID="MedicationMedicationId_3">[id number]</td><td ID="MedicationAccount_3">[id number]</td><td ID="MedicationNpid_3">[id number]</td><td ID="MedicationAuthorFirstName_3">Kemi</td><td ID="MedicationAuthorLastName_3">MacQueen</td><td ID="MedicationTaxonomyCode_3">[id number]</td><td ID="MedicationTaxonomyDesc_3">Psychiatric/Mental Health</td><td ID="MedicationPhoneNumber_3">[phone]</td> [facility] ([facility]) Hydroxychloroquine Sulfate 200 MG Oral T ablet Hydroxychloroquine Sulfate 200 MG Oral Tablet (PLAQUENIL) Hydroxychloroquine Sulfate 200 MG Oral T ablet (PLAQUENIL) 02/18/2021 12:00:00 AM EDT a ctive Rheumatoid factor positivePositive HAYLIE (antinuclear antibody)PolyarthralgiaESR raisedMCTD (mixed connective tissue disease) TAKE ONE TABLET BY MOUTH @8 AM and TAKE ONE TABLET BY MOUTH @8PM [facility] Rheumatoid factor positive Positive HAYLIE (antinuclear antibody) Polyarthralgia ESR raised MCTD (mixed connective tissue disease) 2 ML Sodium Hyaluronate 10 MG/ML Prefilled Syringe [Euflexxa ] Euflexxa 12/11/2020 12:00:00 AM EDT active [facility] ([facility]) retapamulin 0.01 MG/MG Topical Ointment [Altabax] Altabax 1 % Altabax 1 % 10/08/2020 12:00:00 AM EST 1.0 {application} active Altabax 1 % eCW1 (Pending Sale To [facility]) retapamulin 0.01 MG/MG Topical Ointment [Altabax] Altabax 1 % Altabax 1 % 10/08/2020 12:00:00 AM EST 1.0 {application} active Altabax 1 % eCW1 (Pending Sale To [facility]) retapamulin 0.01 MG/MG Topical Ointment [Altabax] Altabax 1 % Altabax 1 % 10/08/2020 12:00:00 AM EST 1.0 {application} active Altabax 1 % eCW1 (Pending Sale To [facility]) retapamulin 0.01 MG/MG Topical Ointment [Altabax] Altabax 1 % Altabax 1 % 10/08/2020 12:00:00 AM EST 1.0 {application} active Altabax 1 % eCW1 (Pending Sale To [facility]) Fluconazole 100 MG Oral Tablet [Diflucan] Diflucan 100 MG Di flucan 100 MG 10/08/2020 12:00:00 AM EST 1.0 {tablet} active Diflucan 100 MG eCW1 (Pending Sale To [facility]) Fluconazole 100 MG Oral Tablet [Diflucan] Diflucan 100 MG Di flucan 100 MG 10/08/2020 12:00:00 AM EST 1.0 {tablet} active Diflucan 100 MG eCW1 (Pending Sale To [facility]) retapamulin 0.01 MG/MG Topical Ointment [Altabax] Altabax 1 % Altabax 1 % 10/08/2020 12:00:00 AM EST 1.0 {application} active Altabax 1 % eCW1 (Pending Sale To [facility]) Fluconazole 100 MG Oral Tablet [Diflucan] Diflucan 100 MG Di flucan 100 MG 10/08/2020 12:00:00 AM EST 1.0 {tablet} active Diflucan 100 MG eCW1 (Pending Sale To [facility]) Fluconazole 100 MG Oral Tablet [Diflucan] Diflucan 100 MG Di flucan 100 MG 10/08/2020 12:00:00 AM EST 1.0 {tablet} active Diflucan 100 MG eCW1 (Pending Sale To [facility]) retapamulin 0.01 MG/MG Topical Ointment [Altabax] Altabax 1 % Altabax 1 % 10/08/2020 12:00:00 AM EST 1.0 {application} active Altabax 1 % eCW1 (Pending Sale To [facility]) retapamulin 0.01 MG/MG Topical Ointment [Altabax] Altabax 1 % Altabax 1 % 10/08/2020 12:00:00 AM EST 1.0 {application} active Altabax 1 % eCW1 (Pending Sale To [facility]) Fluconazole 100 MG Oral Tablet [Diflucan] Diflucan 100 MG Di flucan 100 MG 10/08/2020 12:00:00 AM EST 1.0 {tablet} active Diflucan 100 MG eCW1 (Pending Sale To [facility]) Fluconazole 100 MG Oral Tablet [Diflucan] Diflucan 100 MG Di flucan 100 MG 10/08/2020 12:00:00 AM EST 1.0 {tablet} active Diflucan 100 MG eCW1 (Pending Sale To [facility]) retapamulin 0.01 MG/MG Topical Ointment [Altabax] Altabax 1 % Altabax 1 % 10/08/2020 12:00:00 AM EST 1.0 {application} active Altabax 1 % eCW1 (Pending Sale To [facility]) Fluconazole 100 MG Oral Tablet [Diflucan] Diflucan 100 MG Di flucan 100 MG 10/08/2020 12:00:00 AM EST 1.0 {tablet} active Diflucan 100 MG eCW1 (Pending Sale To [facility]) retapamulin 0.01 MG/MG Topical Ointment [Altabax] Altabax 1 % Altabax 1 % 10/08/2020 12:00:00 AM EST 1.0 {application} active Altabax 1 % eCW1 (Pending Sale To [facility]) Fluconazole 100 MG Oral Tablet [Diflucan] Diflucan 100 MG Di flucan 100 MG 10/08/2020 12:00:00 AM EST 1.0 {tablet} active Diflucan 100 MG eCW1 (Pending Sale To [facility]) Fluconazole 100 MG Oral Tablet [Diflucan] Diflucan 100 MG Di flucan 100 MG 10/08/2020 12:00:00 AM EST 1.0 {tablet} active Diflucan 100 MG eCW1 (Pending Sale To [facility]) retapamulin 0.01 MG/MG Topical Ointment [Altabax] Altabax 1 % Altabax 1 % 10/08/2020 12:00:00 AM EST 1.0 {application} active Altabax 1 % eCW1 (Pending Sale To [facility]) Fluconazole 100 MG Oral Tablet [Diflucan] Diflucan 100 MG Di flucan 100 MG 10/08/2020 12:00:00 AM EST 1.0 {tablet} active Diflucan 100 MG eCW1 (Pending Sale To [facility]) Fluconazole 100 MG Oral Tablet [Diflucan] Diflucan 100 MG Di flucan 100 MG 10/08/2020 12:00:00 AM EST 1.0 {tablet} active Diflucan 100 MG eCW1 (Pending Sale To [facility]) retapamulin 0.01 MG/MG Topical Ointment [Altabax] Altabax 1 % Altabax 1 % 10/08/2020 12:00:00 AM EST 1.0 {application} active Altabax 1 % eCW1 (Pending Sale To [facility]) Fluconazole 100 MG Oral Tablet [Diflucan] Diflucan 100 MG Di flucan 100 MG 10/08/2020 12:00:00 AM EST 1.0 {tablet} active Diflucan 100 MG eCW1 (Pending Sale To [facility]) retapamulin 0.01 MG/MG Topical Ointment [Altabax] Altabax 1 % Altabax 1 % 10/08/2020 12:00:00 AM EST 1.0 {application} active Altabax 1 % eCW1 (Pending Sale To [facility]) retapamulin 0.01 MG/MG Topical Ointment [Altabax] Altabax 1 % Altabax 1 % 10/08/2020 12:00:00 AM EST 1.0 {application} active Altabax 1 % eCW1 (Pending Sale To [facility]) retapamulin 0.01 MG/MG Topical Ointment [Altabax] Altabax 1 % Altabax 1 % 10/08/2020 12:00:00 AM EST 1.0 {application} active Altabax 1 % eCW1 (Pending Sale To [facility]) Fluconazole 100 MG Oral Tablet [Diflucan] Diflucan 100 MG Di flucan 100 MG 10/08/2020 12:00:00 AM EST 1.0 {tablet} active Diflucan 100 MG eCW1 (Pending Sale To [facility]) retapamulin 0.01 MG/MG Topical Ointment [Altabax] Altabax 1 % Altabax 1 % 10/08/2020 12:00:00 AM EST 1.0 {application} active Altabax 1 % eCW1 (Pending Sale To [facility]) Fluconazole 100 MG Oral Tablet [Diflucan] Diflucan 100 MG Di flucan 100 MG 10/08/2020 12:00:00 AM EST 1.0 {tablet} active Diflucan 100 MG eCW1 (Pending Sale To [facility]) Fluconazole 100 MG Oral Tablet [Diflucan] Diflucan 100 MG Di flucan 100 MG 10/08/2020 12:00:00 AM EST 1.0 {tablet} active Diflucan 100 MG eCW1 (Pending Sale To [facility]) Fluconazole 100 MG Oral Tablet [Diflucan] Diflucan 100 MG Di flucan 100 MG 10/08/2020 12:00:00 AM EST 1.0 {tablet} active Diflucan 100 MG eCW1 (Pending Sale To [facility]) retapamulin 0.01 MG/MG Topical Ointment [Altabax] Altabax 1 % Altabax 1 % 10/08/2020 12:00:00 AM EST 1.0 {application} active Altabax 1 % eCW1 (Pending Sale To [facility]) Fluconazole 100 MG Oral Tablet [Diflucan] Diflucan 100 MG Di flucan 100 MG 10/08/2020 12:00:00 AM EST 1.0 {tablet} active Diflucan 100 MG eCW1 (Pending Sale To [facility]) Fluconazole 100 MG Oral Tablet [Diflucan] Diflucan 100 MG Di flucan 100 MG 10/08/2020 12:00:00 AM EST 1.0 {tablet} active Diflucan 100 MG eCW1 (Pending Sale To [facility]) retapamulin 0.01 MG/MG Topical Ointment [Altabax] Altabax 1 % Altabax 1 % 10/08/2020 12:00:00 AM EST 1.0 {application} active Altabax 1 % eCW1 (Pending Sale To [facility]) retapamulin 0.01 MG/MG Topical Ointment [Altabax] Altabax 1 % Altabax 1 % 10/08/2020 12:00:00 AM EST 1.0 {application} active Altabax 1 % eCW1 (Pending Sale To [facility]) Rolling Walker 1 UNK 07/13/2020 12:00:00 AM EST active Rolling Walker 1 eCW1 (Pending Sale To [facility]) Rolling Walker 1 UNK 07/13/2020 12:00:00 AM EST active Rolling Walker 1 eCW1 (Pending Sale To [facility]) Rolling Walker 1 UNK 07/13/2020 12:00:00 AM EST active Rolling Walker 1 eCW1 (Pending Sale To [facility]) Rolling Walker 1 UNK 07/13/2020 12:00:00 AM EST active Rolling Walker 1 eCW1 (Pending Sale To [facility]) Rolling Walker 1 UNK 07/13/2020 12:00:00 AM EST active Rolling Walker 1 eCW1 (Pending Sale To [facility]) Rolling Walker 1 UNK 07/13/2020 12:00:00 AM EST active Rolling Walker 1 eCW1 (Pending Sale To [facility]) Rolling Walker 1 UNK 07/13/2020 12:00:00 AM EST active Rolling Walker 1 eCW1 (Pending Sale To [facility]) Rolling Walker 1 UNK 07/13/2020 12:00:00 AM EST active Rolling Walker 1 eCW1 (Pending Sale To [facility]) Rolling Walker 1 UNK 07/13/2020 12:00:00 AM EST active Rolling Walker 1 eCW1 (Pending Sale To [facility]) Rolling Walker 1 UNK 07/13/2020 12:00:00 AM EST active Rolling Walker 1 eCW1 (Pending Sale To [facility]) Rolling Walker 1 UNK 07/13/2020 12:00:00 AM EST active Rolling Walker 1 eCW1 (Pending Sale To [facility]) Rolling Walker 1 UNK 07/13/2020 12:00:00 AM EST active Rolling Walker 1 eCW1 (Pending Sale To [facility]) Rolling Walker 1 UNK 07/13/2020 12:00:00 AM EST active Rolling Walker 1 eCW1 (Pending Sale To [facility]) Rolling Walker 1 UNK 07/13/2020 12:00:00 AM EST active Rolling Walker 1 eCW1 (Pending Sale To [facility]) Rolling Walker 1 UNK 07/13/2020 12:00:00 AM EST active Rolling Walker 1 eCW1 (Pending Sale To [facility]) Rolling Walker 1 UNK 07/13/2020 12:00:00 AM EST active Rolling Walker 1 eCW1 (Pending Sale To [facility]) Rolling Walker 1 UNK 07/13/2020 12:00:00 AM EST active Rolling Walker 1 eCW1 (Pending Sale To [facility]) Rolling Walker 1 UNK 07/13/2020 12:00:00 AM EST active Rolling Walker 1 eCW1 (Pending Sale To [facility]) Rolling Walker 1 UNK 07/13/2020 12:00:00 AM EST active Rolling Walker 1 eCW1 (Pending Sale To [facility]) Rolling Walker 1 UNK 07/13/2020 12:00:00 AM EST active Rolling Walker 1 eCW1 (Pending Sale To [facility]) Rolling Walker 1 UNK 07/13/2020 12:00:00 AM EST active Rolling Walker 1 eCW1 (Pending Sale To [facility]) Rolling Walker 1 UNK 07/13/2020 12:00:00 AM EST active Rolling Walker 1 eCW1 (Pending Sale To [facility]) Rolling Walker 1 UNK 07/13/2020 12:00:00 AM EST active Rolling Walker 1 eCW1 (Pending Sale To [facility]) Rolling Walker 1 UNK 07/13/2020 12:00:00 AM EST active Rolling Walker 1 eCW1 (Pending Sale To [facility]) Rolling Walker 1 UNK 07/13/2020 12:00:00 AM EST active Rolling Walker 1 eCW1 (Pending Sale To [facility]) Rolling Walker 1 UNK 07/13/2020 12:00:00 AM EST active Rolling Walker 1 eCW1 (Pending Sale To [facility]) Rolling Walker 1 UNK 07/13/2020 12:00:00 AM EST active Rolling Walker 1 eCW1 (Pending Sale To [facility]) Rolling Walker 1 UNK 07/13/2020 12:00:00 AM EST active Rolling Walker 1 eCW1 (Pending Sale To [facility]) Rolling Walker 1 UNK 07/13/2020 12:00:00 AM EST active Rolling Walker 1 eCW1 (Pending Sale To [facility]) Rolling Walker 1 UNK 07/13/2020 12:00:00 AM EST active Rolling Walker 1 eCW1 (Pending Sale To [facility]) Rolling Walker 1 UNK 07/13/2020 12:00:00 AM EST active Rolling Walker 1 eCW1 (Pending Sale To [facility]) Rolling Walker 1 UNK 07/13/2020 12:00:00 AM EST active Rolling Walker 1 eCW1 (Pending Sale To [facility]) Rolling Walker 1 UNK 07/13/2020 12:00:00 AM EST active Rolling Walker 1 eCW1 (Pending Sale To [facility]) Rolling Walker 1 UNK 07/13/2020 12:00:00 AM EST active Rolling Walker 1 eCW1 (Pending Sale To [facility]) Rolling Walker 1 UNK 07/13/2020 12:00:00 AM EST active Rolling Walker 1 eCW1 (Pending Sale To [facility]) Rolling Walker 1 UNK 07/13/2020 12:00:00 AM EST active Rolling Walker 1 eCW1 (Pending Sale To [facility]) Rolling Walker 1 UNK 07/13/2020 12:00:00 AM EST active Rolling Walker 1 eCW1 (Pending Sale To [facility]) Rolling Walker 1 UNK 07/13/2020 12:00:00 AM EST active Rolling Walker 1 eCW1 (Pending Sale To [facility]) Rolling Walker 1 UNK 07/13/2020 12:00:00 AM EST active Rolling Walker 1 eCW1 (Pending Sale To [facility]) Rolling Walker 1 UNK 07/13/2020 12:00:00 AM EST active Rolling Walker 1 eCW1 (Pending Sale To [facility]) Rolling Walker 1 UNK 07/13/2020 12:00:00 AM EST active Rolling Walker 1 eCW1 (Pending Sale To [facility]) Rolling Walker 1 UNK 07/13/2020 12:00:00 AM EST active Rolling Walker 1 eCW1 (Pending Sale To [facility]) Rolling Walker 1 UNK 07/13/2020 12:00:00 AM EST active Rolling Walker 1 eCW1 (Pending Sale To [facility]) Triamcinolone Acetonide 0.001 MG/MG Oral Paste Triamci nolone Acetonide Dental Paste 07/10/2020 12:00:00 AM EST active [facility] ([facility]) Betamethasone 0.5 MG/ML / Clotrimazole 1 0 MG/ML Topical Cream Clotrimazole- Betamethasone 1-0.05 % Clotrimazole-Betamethasone 1-0.05 % 06/15/2020 12:00:0 0 AM EDT 1.0 {application} active Clotri mazole-Betamethasone 1-0.05 % eCW1 (Pending Sale To [facility]) Betamethasone 0.5 MG/ML / Clotrimazole 1 0 MG/ML Topical Cream Clotrimazole- Betamethasone 1-0.05 % Clotrimazole-Betamethasone 1-0.05 % 06/15/2020 12:00:0 0 AM EDT 1.0 {application} active Clotri mazole-Betamethasone 1-0.05 % eCW1 (Pending Sale To [facility]) Betamethasone 0.5 MG/ML / Clotrimazole 1 0 MG/ML Topical Cream Clotrimazole- Betamethasone 1-0.05 % Clotrimazole-Betamethasone 1-0.05 % 06/15/2020 12:00:0 0 AM EDT 1.0 {application} active Clotri mazole-Betamethasone 1-0.05 % eCW1 (Pending Sale To [facility]) Betamethasone 0.5 MG/ML / Clotrimazole 1 0 MG/ML Topical Cream Clotrimazole- Betamethasone 1-0.05 % Clotrimazole-Betamethasone 1-0.05 % 06/15/2020 12:00:0 0 AM EDT 1.0 {application} active Clotri mazole-Betamethasone 1-0.05 % eCW1 (Pending Sale To [facility]) Betamethasone 0.5 MG/ML / Clotrimazole 1 0 MG/ML Topical Cream Clotrimazole- Betamethasone 1-0.05 % Clotrimazole-Betamethasone 1-0.05 % 06/15/2020 12:00:0 0 AM EDT 1.0 {application} active Clotri mazole-Betamethasone 1-0.05 % eCW1 (Pending Sale To [facility]) Betamethasone 0.5 MG/ML / Clotrimazole 1 0 MG/ML Topical Cream Clotrimazole- Betamethasone 1-0.05 % Clotrimazole-Betamethasone 1-0.05 % 06/15/2020 12:00:0 0 AM EDT 1.0 {application} active Clotri mazole-Betamethasone 1-0.05 % eCW1 (Pending Sale To [facility]) Betamethasone 0.5 MG/ML / Clotrimazole 1 0 MG/ML Topical Cream Clotrimazole- Betamethasone 1-0.05 % Clotrimazole-Betamethasone 1-0.05 % 06/15/2020 12:00:0 0 AM EDT 1.0 {application} active Clotri mazole-Betamethasone 1-0.05 % eCW1 (Pending Sale To [facility]) Betamethasone 0.5 MG/ML / Clotrimazole 1 0 MG/ML Topical Cream Clotrimazole- Betamethasone 1-0.05 % Clotrimazole-Betamethasone 1-0.05 % 06/15/2020 12:00:0 0 AM EDT 1.0 {application} active Clotri mazole-Betamethasone 1-0.05 % eCW1 (Pending Sale To [facility]) Betamethasone 0.5 MG/ML / Clotrimazole 1 0 MG/ML Topical Cream Clotrimazole- Betamethasone 1-0.05 % Clotrimazole-Betamethasone 1-0.05 % 06/15/2020 12:00:0 0 AM EDT 1.0 {application} active Clotri mazole-Betamethasone 1-0.05 % eCW1 (Pending Sale To [facility]) Betamethasone 0.5 MG/ML / Clotrimazole 1 0 MG/ML Topical Cream Clotrimazole- Betamethasone 1-0.05 % Clotrimazole-Betamethasone 1-0.05 % 06/15/2020 12:00:0 0 AM EDT 1.0 {application} active Clotri mazole-Betamethasone 1-0.05 % eCW1 (Pending Sale To [facility]) Betamethasone 0.5 MG/ML / Clotrimazole 1 0 MG/ML Topical Cream Clotrimazole- Betamethasone 1-0.05 % Clotrimazole-Betamethasone 1-0.05 % 06/15/2020 12:00:0 0 AM EDT 1.0 {application} active Clotri mazole-Betamethasone 1-0.05 % eCW1 (Pending Sale To [facility]) Hydroxychloroquine Sulfate 200 MG Oral T ablet Hydroxychloroquine Sulfate 200 MG Oral Tablet (PLAQUENIL) Hydroxychloroquine Sulfate 200 MG Oral T ablet (PLAQUENIL) 06/02/2020 12:00:00 AM EDT 200 mg Oral a ctive Rheumatoid factor positivePositive HAYLIE (antinuclear antibody)PolyarthralgiaESR raisedMCTD (mixed connective tissue disease) Take 1 tablet by mouth Two Times Daily [facility] Rheumatoid factor positive Positive HAYLIE (antinuclear antibody) Polyarthralgia ESR raised MCTD (mixed connective tissue disease) 2 ML Sodium Hyaluronate 10 MG/ML Prefilled Syringe [Euflexxa ] Euflexxa 04/21/2020 12:00:00 AM EDT completed [facility] ([facility]) Hydroxychloroquine Sulfate 200 MG Oral T ablet Hydroxychloroquine Sulfate 200 MG Oral Tablet (PLAQUENIL) Hydroxychloroquine Sulfate 200 MG Oral T ablet (PLAQUENIL) 03/26/2020 12:00:00 AM EDT 200 mg Oral a borted Rheumatoid factor positivePositive HAYLIE (antinuclear antibody)PolyarthralgiaESR raisedMCTD (mixed connective tissue disease) Take 1 tablet by mouth Two Times Daily [facility] Rheumatoid factor positive Positive HAYLIE (antinuclear antibody) Polyarthralgia ESR raised MCTD (mixed connective tissue disease) Sertraline 100 MG Oral Tablet [Zoloft] Zoloft 02/26/2020 12:0 0:00 AM EDT 100 mg by mouth completed <td ID="Me dicationRxNorm_2">[id number]</td><td ID="MedicationMedication_2">Zoloft</td><td ID="MedicationRoute_2">by mouth</td><td ID="MedicationRouteConcept_2">Y11308</td><td ID="MedicationStartDate_2">02/26/2020</td><td ID="MedicationStopDate_2">03/23/2021</td><td ID="MedicationDosageFrequency_2">once a day</td><td ID="MedicationDuration_2">30</td><td ID="MedicationFormulaStrength_2">100 mg</td><td ID="MedicationDosageForm_2">tablet</td><td ID="MedicationDosageFormCode_2"></td><td ID="MedicationDosageDescription_2"></td><td ID="MedicationMedicationId_2">[id number]</td><td ID="MedicationAccount_2">[id number]</td><td ID="MedicationNpid_2">[id number]</td><td ID="MedicationAuthorFirstName_2">Kemi</td><td ID="MedicationAuthorLastName_2">Dajuan</td><td ID="MedicationTaxonomyCode_2">[id number]</td><td ID="MedicationTaxonomyDesc_2">Psychiatric/Mental Health</td><td ID="MedicationPhoneNumber_2">[phone]</td> [facility] ([facility]) Insurance Providers Payer name Policy type / Coverage type Policy ID Covered alliance party ID Covered alliance party's relationship to camacho Policy Camacho Plan Information [id number] MEDICARE A [id number] Self [id number] MEDICARE A [id number] Self [id number] MEDICARE [id number] SP [id number] MEDICARE [id number] SP [id number] [id number] [id number] Self [id number] [place] Primary [id number] ..[id number] Self [id number] [place] Medicare Primary [id number] ..[id number] Self [id number] [place] Medicare Primary [id number] .[id number] Self [id number] [place] Primary [id number] .1.074386.3.227.99.991.180365.0 Self [id number] [place] Primary [id number] .[id number]79.0 Self [id number] [place] Primary [id number] .[id number].0 Self [id number] [place] Medicare Primary [id number] 2.840.1.358371.3.227.99.991.841653.0 Self [id number] [place] Primary [id number] 2.840.1.197013.3.227.99.991.777851.0 Self [id number] [place] Primary [id number] 2.0.1.247157.3.227.99.991.832410.0 Self [id number] [place] Medicare Primary [id number] 2.0.1.850756.3.227.99.991.073401.0 Self [id number] [place] Primary [id number] 2.0.1.467303.3.227.99.991.404721.0 Self [id number] [place] Medicare Primary [id number] 2.0.1.583962.3.227.99.991.668024.0 Self [id number] [place] Primary [id number] MRN.[id number] Self [id number] Medicaid [place] Medig[place] Part B [id number] MRN.[id number] Self [id number] [place] Medicare Primary [id number] 2.0.1.025632.3.227.99.991.802425.0 Self [id number] Medicare [place] Medicare Primary [id number] 2.0.1.609807.3.227.99.991.220069.0 Self [id number] [place] Medicare Primary [id number] 2.0.1.057242.3.227.99.991.569894.0 Self [id number] [place] Medicare Primary [id number] 2.0.1.692828.3.227.99.991.816349.0 Self [id number] Medicaid [facility] Part B [id number] Self Medicare [place] Medicare Primary [id number] Self Medicare [place] Medicare Primary [id number] 2.0.1.063009.3.227.99.991.648356.0 Self [id number] [place] Primary [id number] MRN.[id number] Self [id number] Medicare [place] Medicare Primary [id number] 2.0.1.687244.3.227.99.991.673219.0 Self [id number] [place] Medicare Primary [id number] MRN.[id number] Self [id number] Medicare [place] Medicare Primary [id number] 2.0.1.977927.3.227.99.991.665878.0 Self [id number] Medicare [place] Medicare Primary [id number] 2.0.1.482381.3.227.99.991.388131.0 Self [id number] Medicare [place] Medicare Primary [id number] MRN.[id number] Self [id number] Medicare [place] Medicare Primary [id number] 2.0.1.505016.3.227.99.991.592821.0 Self [id number] Medicare [place] Medicare Primary [id number] 2.0.1.110637.3.227.99.991.775495.0 Self [id number] [facility] [id number] SP [id number] [facility] [id number] SP [id number] [facility] [id number] SP [id number] Medicare P [id number] S [id number] MEDICAID M [id number] Self [id number] AARP U [id number] Self [id number] MEDICARE [id number] SP [id number] 9C1 MEDICAID M [id number] S [id number] AARP O [id number] S [id number] MEDICAID [id number] SP [id number] [facility] [id number] SP [id number] [facility] [id number] SP [id number] MEDICARE [id number] SP [id number] [id number] SP [id number] MEDICARE [id number] SP [id number] MEDICARE C [id number] S [id number] MEDICAID M [id number] S [id number] [place] [id number] SP [id number] Medicaid S UNAVAILABLE S UNA[place]A BLE Medicare P [id number] S [id number] C76 AETNA MEDICARE [id number] SP [id number] MEDICAID [id number] SP [id number] Medicare S UNAVAILABLE S UNA[place]ILA BLE MEDICARE [id number] SP [id number] AETNA MEDICARE [id number] SP [id number] MEDICARE C [id number] S [id number] AETNA MEDICARE O [id number] S [id number] ANSI-Medicaid [id number] ANSI-Medicare Part B [id number] ANSI-Medicare Part B [id number] ANSI-Medicare Part B [id number] ANSI-Medicare Part B [id number] ANSI-Medicaid [id number] Medicare Dme Supplies [facility] Part B [id number] Self [id number] ANSI-Medicare Part B [id number] ANSI-Medicaid [id number] ANSI-Medicare Part B [id number] ANSI-Medicaid [id number] ANSI-Medicare Part B [id number] ANSI-Medicare Part B [id number] Medicare Dme Supplies Medigap Part B [id number] Self [id number] Medicare Dme Supplies Medigap Part B [id number] [id number] Self [id number] [place] Part [place] [id number] Self [id number] Medicare - [place] Medicare Primary [id number] Self [id number] Medicare Dme Supplies Medigap Part B [id number] Self [id number] Medicare Dme Supplies Medigap Part B [id number] Self [id number] Medicare Dme Supplies Medigap Part B [id number] Self [id number] [facility]IONS [id number] SP [id number] MEDICAID [id number] SP [id number] ANSI-Medicaid [id number] ANSI-Medicare Part B [id number] Medicaid [place] Part B [id number] Self [id number] Medicare - [facility] Medicare Primary [id number] Self 1 [id number] [facility] [id number] Problems, Conditions, and Diagnoses Code Display Name Description Problem Type Effective Dates Data Source(s) F41.1 Generalized anxiety disorder Generalized Anxiety Disor ino Condition 06/29/2021 12:00:00 AM EDT [facility] ([facility]) F25.0 Schizoaffective disorder, bipolar type S chizoaffective Disorder, Bipolar type Condition 06/29/2021 12:00:00 AM EDT [facility] ([facility]) I10 [id number] Essential hypertension Problem 05/25/2021 12 :00:00 AM EDT eCW1 (Pending Sale To [facility]) K14.6 [id number] Tongue pain Problem 05/25/2021 12:00:00 AM E DT eCW1 (Pending Sale To [facility]) [id number] Pure hypercholesterolemia Pure hypercholesterolemia Pr oblem 10/05/2020 12:00:00 AM EST [facility] ([facility] Surgeries/Procedures Procedure Description Date Indications Data Source(s) Extended Individual Psychotherapy - 45 min 06/29/2021 12:00:00 AM EDT - 06/29/2021 12:00:00 AM EDT [facility] ([facility]) Extended Individual Psychotherapy - 45 min 12:00:00 AM EDT [facility] ([facility]) MHC Telemed E/M Lvl 3--Est pt 06/16/2021 12:00:00 AM EDT - 06/16/2021 12:00:00 AM EDT [facility] ([facility]) MHC Telemed E/M Lvl 3--Est pt 06/16/2021 12:00:00 AM E DT [facility] ([facility]) Extended Individual Psychotherapy - 45 min 06/11/2021 12:00:00 AM EDT - 06/11/2021 12:00:00 AM EDT [facility] ([facility]) Extended Individual Psychotherapy - 45 min 12:00:00 AM EDT [facility] ([facility]) Extended Individual Psychotherapy - 45 min 05/20/2021 12:00:00 AM EDT - 05/20/2021 12:00:00 AM EDT [facility] ([facility]) Extended Individual Psychotherapy - 45 min 12:00:00 AM EDT [facility] ([facility]) MHC Telemed E/M Lvl 3--Est pt 04/29/2021 12:00:00 AM EDT - 04/29/2021 12:00:00 AM EDT [facility] ([facility]) Telemed A/O 30" 04/28/2021 12:00:00 AM EDT [facility] ([facility]) MHC Telemed E/M Lvl 3--Est pt 04/28/2021 12:00:00 AM E DT [facility] ([facility]) MHC Telemed E/M Lvl 3--Est pt 04/14/2021 12:00:00 AM EDT - 04/14/2021 12:00:00 AM EDT [facility] ([facility]) MHC Telemed E/M Lvl 3--Est pt 04/14/2021 12:00:00 AM E DT [facility] ([facility]) Extended Individual Psychotherapy - 45 min 03/26/2021 12:00:00 AM EDT - 03/26/2021 12:00:00 AM EDT [facility] ([facility]) Extended Individual Psychotherapy - 45 min 12:00:00 AM EDT [facility] ([facility]) OFFICE OUTPATIENT VISIT 15 MINUTES 03/03/2021 12:00:00 AM EDT [facility] ([facility]) ARTHROCENTESIS ASPIR&/INJECTION MAJOR JT/BURSA 021 12:00:00 AM EDT [facility] ([facility]) MHC Telemed E/M Lvl 3--Est pt 12/23/2020 12:00:00 AM EDT - 12/23/2020 12:00:00 AM EDT [facility] ([facility]) MHC Telemed E/M Lvl 3--Est pt 12/23/2020 12:00:00 AM E DT [facility] ([facility]) Extended Individual Psychotherapy - 45 min 12/21/2020 12:00:00 AM EDT - 12/21/2020 12:00:00 AM EDT [facility] ([facility]) Extended Individual Psychotherapy - 45 min 12:00:00 AM EDT [facility] ([facility]) ARTHROCENTESIS ASPIR&/INJECTION MAJOR JT/BURSA 021 12:00:00 AM EDT [facility] ([facility] ) ARTHROCENTESIS ASPIR&/INJECTION MAJOR JT/BURSA 021 12:00:00 AM EDT [facility] ([facility] ) Extended Individual Psychotherapy - 45 min 11/27/2020 12:00:00 AM EDT - 11/27/2020 12:00:00 AM EDT [facility] ([facility]) Extended Individual Psychotherapy - 45 min 12:00:00 AM EDT [facility] ([facility]) ARTHROCENTESIS ASPIR&/INJECTION MAJOR JT/BURSA 021 12:00:00 AM EDT [facility] ([facility] ) RADIOLOGIC EXAM KNEE COMPLETE 4/MORE VIEWS 11/13/2020 12:00:00 AM EDT [facility] ([facility] ) RADIOLOGIC EXAM KNEE COMPLETE 4/MORE VIEWS 11/13/2020 12:00:00 AM EDT [facility] ([facility] ) Extended Individual Psychotherapy - 45 min 11/10/2020 12:00:00 AM EDT - 11/10/2020 12:00:00 AM EDT [facility] ([facility]) Extended Individual Psychotherapy - 45 min 12:00:00 AM EDT [facility] ([facility]) [id number]"Psychotherapy 12:00:00 AM EST - 10/23/2020 12:00:00 AM EST [facility] ([facility]) [id number]"Psychotherapy 10/23/2020 12:00:00 AM EST [facility] ([facility]) Extended Individual Psychotherapy - 45 min 10/05/2020 12:00:00 AM EST - 10/05/2020 12:00:00 AM EST [facility] ([facility]) Extended Individual Psychotherapy - 45 min 12:00:00 AM EST [facility] ([facility]) X-Ray Hips Bilateral With Pelvis Minimum 5 Views 10/02 12:00:00 AM EST [facility] ([facility]) MHC Telemed E/M Lvl 3--Est pt 09/16/2020 12:00:00 AM EST - 09/16/2020 12:00:00 AM EST [facility] ([facility]) MHC Telemed E/M Lvl 3--Est pt 09/16/2020 12:00:[address] [facility] ([facility]) Extended Individual Psychotherapy - 45 min 08/27/2020 12:00:00 AM EST - 08/27/2020 12:00:00 AM EST [facility] ([facility]) Extended Individual Psychotherapy - 45 min 0 12:00:00 AM EST [facility] ([facility]) Extended Individual Psychotherapy - 45 min 08/07/2020 12:00:00 AM EST - 08/07/2020 12:00:00 AM EST [facility] ([facility]) Extended Individual Psychotherapy - 45 min 0 12:00:00 AM EST [facility] ([facility]) MHC Telemed E/M Lvl 3--Est pt 08/05/2020 12:00:00 AM EST - 08/05/2020 12:00:00 AM EST [facility] ([facility]) MHC Telemed E/M Lvl 3--Est pt 08/05/2020 12:00:[address] [facility] ([facility]) TEMPMHCTelemed 30" Psychotherapy 020 12:00:00 AM EST - 06/29/2020 12:00:00 AM EST [facility] ([facility]) TEMPMHCTelemed 30" Psychotherapy 06/29/2020 12:00:00 A M EST [facility] ([facility]) Extended Individual Psychotherapy - 45 min 06/26/2020 12:00:00 AM EDT - 06/26/2020 12:00:00 AM EDT [facility] ([facility]) Extended Individual Psychotherapy - 45 min 0 12:00:00 AM EDT [facility] ([facility]) Immunization: Flublok Quadrivalent (18 years & older) 0.5mL IM (Influenza) 06/16/2020 12:00:00 AM EDT eC1 ([facility]) Extended Individual Psychotherapy - 45 min 06/09/2020 12:00:00 AM EDT - 06/09/2020 12:00:00 AM EDT [facility] ([facility]) Extended Individual Psychotherapy - 45 min 0 12:00:00 AM EDT [facility] ([facility]) Extended Individual Psychotherapy - 45 min 05/26/2020 12:00:00 AM EDT - 05/26/2020 12:00:00 AM EDT [facility] ([facility]) Extended Individual Psychotherapy - 45 min 0 12:00:00 AM EDT [facility] ([facility]) MHC Telemed E/M Lvl 3--Est pt 05/21/2020 12:00:00 AM EDT - 05/21/2020 12:00:00 AM EDT [facility] ([facility]) MHC Telemed E/M Lvl 3--Est pt 05/21/2020 12:00:00 AM E DT [facility] ([facility]) ARTHROCENTESIS ASPIR&/INJECTION MAJOR JT/BURSA 12:00:00 AM EDT [facility] ([facility]) Results ID Date Data Source [id number] 06/24/2021 08:50:27 PM EDT [facility] Name Value Range Interpretation Code Description Data Paulina rce(s) Supporting Document(s) Discharge Summary [facility] JDRDPq1rUnEGKmAh65/VTWhzDLUte2VxTPxkVJm5VWsrNSXiI3IeIEM7kM2kAXA9TYkNDfMkXaVjWCG3 lbm MzXjkTGzVqSKHaIeoYVcLdSEovKpfexDCfJP6GuVR1CTZlU51mTZRjURGyC3TrKFI9QKV+Yh5PSOEkjR PwAY4CIgnU6D8Uj2mQTZ5UbR7XIZZdW0hS57M6+YmwW3HyH3hJjV1cJPK0ylQ5hj9i22ArrOCRmF6T6e YmFoP1fTcEDa14S8Q33kYoR288S8ss+743+4z6m7dO [file] KDL55M80OZGw/TiID+CD+BA+Jo Ann+SG5bnokF/TpXpY/ gN/CY+pmyvJV3Un1Kg0xrl4/uLRm9Z2MC8Mn/agnes/C7+Bw+drmZrFY9Td+gOvZF/V2G4IE3wtdEwpX/xJ jfPMbYmmuzVlsOe1QWJT9NSb+n8fbHqwhKtC0nqkR18EUsSDqeCgjgYX7jPWeyipJogNYSLGA8yB2AsY hwhF5H6jsGsZvT7516Ye6FT+P8FjnblbNEuFRzAMPg bv6g7OwWfwgxikQPT3YdvON9rSt6uNNRRsYS0McJdF72eueo6WDa4LAJeLPvPpW8PHiQ5px3JuXAtYEQ ERjKUcb5xdLDYN3HzAGci3Umi9sHYqUth3ENVCtZVzAi7sBuyI28sgQ3pfymStnF5AQRTNxXFDINCCHV TyP4lbezCNJmCWJiybdx9clnCbboorsicEpssXDPFh asjIRqTPwYMV7YZ4hfdyr8JPLtT4Sz7UqprsfdbJlr63YkXMyP8bSktrtIsksnWZ0tRzFhUlK5eZqmnO utBOod01eWlceN14ypJzSqtaTCdtRFPyUVmOmGbx4sALeaiZziGEaYIDlhBZegSGcJnx2woe0Trlyll8 sx6oSHCHprjpfcVYahSH+GDUDkPBOTTLtju8D0dIOS XfwuIRYrMOI2OJCKWsnLPGEH9fgmNazv448UXNCXgvrw1ORwy3F6CsBaYMa++VxLyiaT2k7aoftkVBN3 WJvk8V8+E7w7RlvcWsQeVAciVl7GGnMCw9nOYY1sZY3VymujdoKLuceWpwPowURn9HXcpS9GG4Z7PTpL v0ESugsHyqRhtPNWnVKwxBR6zsqKXtPCtS03Np/Prabhakar [file] E+DQogICAgICAgICAgICAgICAgICAgICAgICAgICAg ICAgICAgICAgICAgICAgICAgICAgICAgICAgICAgICAgICAgICAgICAgICAgICAgICAgICAgICAgICAg ICAgICAgICAgICAgDQogICAgICAgICAgICAgICAgICAgICAgICAgICAgICAgICAgICAgICAgICAgICAg ICAgICAgICAgICAgICAgICAgICAgICAgICAgICAgIC AgICAgICAgICAgICAgICAgICAgICAgDQogICAgICAgICAgICAgICAgICAgICAgICAgICAgICAgICAgIC AgICAgICAgICAgICAgICAgICAgICAgICAgICAgICAgICAgICAgICAgICAgICAgICAgICAgICAgICAgIC AgICAgDQogICAgICAgICAgICAgICAgICAgICAgICAg ICAgICAgICAgICAgICAgICAgICAgICAgICAgICAgICAgICAgICAgICAgICAgICAgICAgICAgICAgICAg ICAgICAgICAgICAgICAgDQogICAgICAgICAgICAgICAgICAgICAgICAgICAgICAgICAgICAgICAgICAg ICAgICAgICAgICAgICAgICAgICAgICAgICAgICAgIC AgICAgICAgICAgICAgICAgICAgICAgICAgDQogICAgICAgICAgICAgICAgICAgICAgICAgICAgICAgIC AgICAgICAgICAgICAgICAgICAgICAgICAgICAgICAgICAgICAgICAgICAgICAgICAgICAgICAgICAgIC AgICAgICAgDQogICAgICAgICAgICAgICAgICAgICAg ICAgICAgICAgICAgICAgICAgICAgICAgICAgICAgICAgICAgICAgICAgICAgICAgICAgICAgICAgICAg ICAgICAgICAgICAgICAgICAgDQogICAgICAgICAgICAgICAgICAgICAgICAgICAgICAgICAgICAgICAg ICAgICAgICAgICAgICAgICAgICAgICAgICAgICAgIC AgICAgICAgICAgICAgICAgICAgICAgICAgICAgDQogICAgICAgICAgICAgICAgICAgICAgICAgICAgIC AgICAgICAgICAgICAgICAgICAgICAgICAgICAgICAgICAgICAgICAgICAgICAgICAgICAgICAgICAgIC AgICAgICAgICAgDQogICAgICAgICAgICAgICAgICAg ICAgICAgICAgICAgICAgICAgICAgICAgICAgICAgICAgICAgICAgICAgICAgICAgICAgICAgICAgICAg DJGcRSGpNAFkXDRsVJBfRPYyGXFqBUh1R5iiUAEzMZHbLM7oKXk0Sp1+LBdEOnSfSHO4yqNerO4LHV4f z0BiGCnfESCll7VrZZb4BO5LLNUtIDprHP3LICnfji 2IRPFoPQNkjCXSs0ybHaXmWRK0UJWmDabaYL7FDHDgA5rsqlBfNCCtFSFGWJlpKBKUOWzeNBIRBUUcYT AyLhYrKlXpZSDvZXOmQQBYUME6PPMqVgHyDKDcCNYkQdRfDMDUTZEpDQAfXmVeKXTfLWZiZplaXEGHJB M8GNRcJrQrEQMqEKPpNuPmMZHDFW9RBaSpA1PabN40 BLL4TQe+Iq7NNM4rm1YlJEz7LWRdYQ1oyo0OMJeIBxAxX2DeliT2RRS0ZUBoEw5XOYZyKMLrxNH6YBZs YHYOMxLpP2NqsA89YDMHTj0+FFnksqWnVhyAKiZ5IBDms7YpLGy9BV9CBUTkYGy6eYXrKEayO8nflrow SEO1lP4veojwYzpxVWlhgBEYNR6lHK1HMZM9LFNaMh B2EuRvCpAoDOZ4FJGsRT6nTImyAQ0FYWL8YSecSLDmCCChW7pIZkLzVOPkWvMsuTumBJ9YQaExN1Aqxg HhjKX6MXXiRJYQQk0+ZEghleYmPnsXXoV4FLClz9BbOJb0DV5VXAEnWLhpIU0EEYGvqO3dVAnuVI8VTv L7SqYsPECLOiXoZ00fmMCcDMz9G1PvIgJkZBItGvlv ZXMgPDwvTmFtZXMgWyBdDQogID4+ID4+HMraDM4GODinsoBrNOBjIx9TKSCuVFBjCD8bXACkFGVwA6O8 nJeeJDEHUgQsL2phgjukOZ4jFAGnH815zFghjsLqAUT6ZJLeJe0SPXJgMTF0IXZddCTcWoBpVSMNWUog SP6TwNGyTBS6dY2aMVunQBUjQWFhX8xRKsVjxOkgVL 51bGwgbnVsbCBdDQo+Pl3HPJ2pr9QrUJa7viTtNXorZOV9RQsrBCTaHDZrGCHpTUU1NVI0WVRXYwSrCH DuLPMyKTlcUNXlORLctc8WRNLiJNO9UvFvNIZlOSZmJSNdLPqdQUIwPIr3CaI2PONfUTReMF3RVaDnQT FyEBHiWRpaQUKiWBXout8EXBOlGLVqYSQ3QGBjCUNs GBXbJCjnSGSmHSN2Miu5NSBePOYoJY1OGjXgXSAfDVh6HwNgLRRjMXGqef7THYClPJJmGALfWpCjQPYa JYBnMWikNGSuCYUoMuw6LSYoEMQfZU8NZwYbRIGhATY8UXHyEPEnTQHuwc7SYNLePSLoITciFtWdAVYa JUZcCEuuOMKiFCO1GKQkTTLzCEJwBS8XPzMjTZUyWo E8RectXRAsHADruv8GBIJdMTSfKHF1SPLbGNGlGARbGDbjWEUzSOTcFzdmHFUrZJXfMN6VHhJtJXXxHo K5JlQhXPXaPDIqke6VHYRnLYEmMkqbPeTrUGXcVDNbNFouNCZxWRJ5YXObOCNjBJXvNQ5SEfOzZBOrCv t5KUjdHCHzZCSgua3VOFGxPOZyDXerToNsDQMhRITn IAluCYWvFLYxRIT6XITpEIKaVY7JQaNpKVMaOiWvJYDxWZBoRTRvij8HODOlQJPdVrArIuGrYPGaXFMb YCevHPByHDS8DMS4ZKZtMTToES5RUzEiSHFgFZDwNHgvHPReFZLays0TJSIlPHK8JYA0UBDuITJeMENl VEpjXIKwDLB8XYm9SOFpJBAcKH0BFpBgTDReLIEeBY UdKCQdSAOemb3JVPQfKOL5JaF7GdQwMDZyZGIzPOikTAZrCAN9ACmzEAAlOZSdTF7SWbHkWTQiQLQiGu jrMDTtUKCagj3DIUPmTGG4RXY2FtPrTDFfQEKxICtbDDMjQHTnUOF1XLFgTMDpTF8DTeFsKOUhXXEbKP KyXWFqVQQflx6KDMEmMSV5CsZvRpUuKEUgYXPySUci HRCwKLRzJQp9IIItEQUcLW8KYqVpKZFoLYDxZLWkSFKsRXKcec1FCPYdRXF8KBT2PLGaYOOiWDIzNOxp LKHsEIV2EVJwBXMfIAJiXW4ZYrIrCBYgEFB0WbMgUEBkHXIqtt1EPNIqWFS7JMR8IOEuBOCoKYXwCRhx SWFwJUM1IOw3XRIzWYYfFH1VDnOjHSYbTBWpIcAoKV JgZVDeud0NQDVvJPT9JmR1OtFiGGZpHTQtKYrmBVAlHBQ3Xrz1ABNoMGUkRL3NIqKeXBUtGvq3VGVeUL EoNSQnjo6MBCFtZZG9HUGvJlFrUPFxEBMrGLmrDHEgROP1CdM1CMBwLFIlXP7IYqHlOZGsOoDqPpAeNK MlCGLrjn5LZUEiACH7AwC5NLNyZCSxEHYbBMjaHEOy CKfhLhZfYMScXJXyXS7WPjJqGWXyOiCyZBuuIKQfKXFbkv3IKKFdUSZ2DZZ6LVZiRUPhLRQmEEhxKCJp ZEo6FdfkGVEgXINvUZ8FIvToCPLeKeC6HCAyKWBjRKFnem3WRPJnRMD7MNo8NEAiCQQwYKMjABczSHIx MJl8ZhTgRWUpOLZhEI4RZfMqJCGeGcE4ZJLmNJSxUW Ucaj0FUNRgIEG2MzW0MKHxLNInALRdRVabMGWzWPe6LFHuYVGrWDEtOS2RHmTmYXPfXgmuLOBtMLKkXY Bwoc3XKRVhKGB7LiM0DuXfWLFbNWDgVUdfDMXgGXn2IAK6XVXkEVAoCL8NFdGlMGHzBmd9OIBfZXIwDB Czgi9MJWWnEDA4JJB1ATFwKQXmXXSzJRfnUMWcGTz7 BgVaJELlHWMeZQ6IAdNiIUgsHYOGNmh4SNlyU4v9SRA3Ji0YV4Mfu7AfKjXzNEAZLOyzUE9ytyBdPJSd Ni3LR8hVIymwVfM5NDM5FCO9QLD8UvwgXCKhMAY8NpVvUFtuBJRlTP2yMPWbNSO8XUWnDjV3Hem1JDT8 EFS0PadtUSCzROP4QYOhXwTvVM4MIv7MOgO4YLO4lWTrRi9WWfq8CyMJWpLuZB4XXQx= ID Date Data Source [id number] 06/24/2021 07:29:55 AM [facility] Name Value Range Interpretation Code Description Data Paulina rce(s) Supporting Document(s) [place] [Moles/volume] in Serum or Plasma 0.63 mmol/L 0.60-1.20 [facility] ID Date Data Source [id number] 06/24/2021 07:26:25 AM [facility] Name Value Range Interpretation Code Description Data Paulina rce(s) Supporting Document(s) Bicarbonate [Moles/volume] in Serum 27 mmol/L - [facility] Chloride [Moles/volume] in Serum or Plasma 107 mmol/L 98-107 [facility] Creatinine [Mass/volume] in Serum or Plasma 0.56 mg/dL 0.50-0.90 [facility] Glucose [Mass/volume] in Serum or Plasma 86 mg/dL 70-140 [facility] Potassium [Moles/volume] in Serum or Plasma 3.8 mmol/L 3.4-5.1 [facility] Sodium [Moles/volume] in Serum or Plasma 142 mmol/L 136-145 [facility] Urea nitrogen [Mass/volume] in Serum or Plasma 13 mg/dL 8-23 [facility] Anion gap 3 in Serum or Plasma 8 mmol/L 8-15 [facility] Osmolality of Serum or Plasma by calculation 293 mosm/kg 275-300 [facility] Creatinine/Urea nitrogen [Mass Ratio] in Serum or Plasma 23 [facility] Calcium [Mass/volume] in Serum or Plasma 9.3 mg/dL 8.6-10.0 [facility] Glomerular filtration rate/1.73 sq M pre dicted among non-blacks [Volume Rate/Area] in Serum or Plasma by Creatinine-based formula (MDRD) >[address] [facility] Glomerular filtration rate/1.73 sq M pre dicted among blacks [Volume Rate/Area] in Serum or Plasma by Creatinine-based formula (MDRD) >60 [facility] ID Date Data Source [id number] 06/22/2021 11:26:28 AM [facility] Name Value Range Interpretation Code Description Data Paulina rce(s) Supporting Document(s) Calcidiol [Mass/volume] in Serum or Plasma 25 ng/mL >[address] [facility] ID Date Data Source [id number] 06/22/2021 04:01:47 PM [facility] Value Range Interpretation Code Description Data Paulina rce(s) Supporting Document(s) Hepatitis C virus Ab [Presence] in Serum or Plasma by Immuno assay Non Reactive [facility] No serological evidence of active infect ion. If recent exposure is suspected, test for HCV RNA. ID Date Data Source [id number] 06/22/2021 07:34:02 AM [facility] Value Range Interpretation Code Description Data Paulina rce(s) Supporting Document(s) Cholesterol [Mass/volume] in Serum or Plasma 177 mg/dL <200 [facility] Triglyceride [Mass/volume] in Serum or Plasma 119 mg/dL <150 [facility] Cholesterol in HDL [Mass/volume] in Serum or Plasma 74 mg/dL >50 [facility] Cholesterol in LDL [Mass/volume] in Serum or Plasma by calcu lation 79 mg/dL <100 [facility] Cholesterol in VLDL [Mass/volume] in Serum or Plasma by calc ulation 24 mg/dl 16-42 [facility] Cholesterol non HDL [Mass/volume] in Serum or Plasma 103 mg/dL <130 [facility] ID Date Data Source [id number] 06/22/2021 07:34:02 AM [facility] Value Range Interpretation Code Description Data Paulina rce(s) Supporting Document(s) Thyrotropin [Units/volume] in Serum or Plasma 4.090 u[IU]/mL 0.270-4. 200 [facility] ID Date Data Source [id number] 06/22/2021 07:06:02 AM EDT [facility] Name Value Range Interpretation Code Description Data Paulina rce(s) Supporting Document(s) Hemoglobin A1c/Hemoglobin.total in Blood by HPLC 5.1 % 4.0-6.0 [facility] Glucose mean value [Mass/volume] in Blood Estimated fr om glycated hemoglobin 100 mg/dL <126 [facility] ID Date Data Source [id number] 06/20/2021 07:46:41 PM EDT [facility] Name Value Range Interpretation Code Description Data Paulina rce(s) Supporting Document(s) History and Physical [facility] SAXKMo3aTdRDBrAj07/XFLocAMQzn1GdYQmeOBk6OOqqTCTxM0BaYLJ9bI7qSRE7NOnJMdUwWfUgAAY2 lbm [file] AgICAgICAgICAgICAgICAgICAgICAgICAgICAgICAgICAgICAgICAgICAgICAgICAgICAgICAgICANCi AgICAgICAgICAgICAgICAgICAgICAgICAgICAgICAg ICAgICAgICAgICAgICAgICAgICAgICAgICAgICAgICAgICAgICAgICAgICAgICAgICAgICAgICAgICAg ICAgICAgICANCiAgICAgICAgICAgICAgICAgICAgICAgICAgICAgICAgICAgICAgICAgICAgICAgICAg ICAgICAgICAgICAgICAgICAgICAgICAgICAgICAgIC AgICAgICAgICAgICAgICAgICANCiAgICAgICAgICAgICAgICAgICAgICAgICAgICAgICAgICAgICAgIC AgICAgICAgICAgICAgICAgICAgICAgICAgICAgICAgICAgICAgICAgICAgICAgICAgICAgICAgICAgIC ANCiAgICAgICAgICAgICAgICAgICAgICAgICAgICAg ICAgICAgICAgICAgICAgICAgICAgICAgICAgICAgICAgICAgICAgICAgICAgICAgICAgICAgICAgICAg ICAgICAgICAgICANCiAgICAgICAgICAgICAgICAgICAgICAgICAgICAgICAgICAgICAgICAgICAgICAg ICAgICAgICAgICAgICAgICAgICAgICAgICAgICAgIC AgICAgICAgICAgICAgICAgICAgICANCiAgICAgICAgICAgICAgICAgICAgICAgICAgICAgICAgICAgIC AgICAgICAgICAgICAgICAgICAgICAgICAgICAgICAgICAgICAgICAgICAgICAgICAgICAgICAgICAgIC AgICANCiAgICAgICAgICAgICAgICAgICAgICAgICAg ICAgICAgICAgICAgICAgICAgICAgICAgICAgICAgICAgICAgICAgICAgICAgICAgICAgICAgICAgICAg ICAgICAgICAgICAgICANCiAgICAgICAgICAgICAgICAgICAgICAgICAgICAgICAgICAgICAgICAgICAg ICAgICAgICAgICAgICAgICAgICAgICAgICAgICAgIC AgICAgICAgICAgICAgICAgICAgICAgICANCiAgICAgICAgICAgICAgICAgICAgICAgICAgICAgICAgIC AgICAgICAgICAgICAgICAgICAgICAgICAgICAgICAgICAgICAgICAgICAgICAgICAgICAgICAgICAgIC AgICAgICANCjw/gTWqG7jyvAStsyZ0Y4rjNe1OXh5C AA1hu8SiJIAkXSedlkQaGihLJmLpPAWhOnbUZwi8SRvlCQ5DlCJkM4WyR7BzNVunLJ3LWMGeJEKugPZo VYMgJXPjOrA2TXWuXFeuOL7FwUPfFQadKRXlIYEaTcYrLUOjZOVtFEZpAPHnBSJBUGXiNYChQiWiBHZn NNDnDFrfZKGNNR0MShVjL6VogP14NQdVOc8+DQplbm RkKbhEAhA5LGJjr6ElKQq8LH4ULUFyMgqjl8UyHJNcDUFNXUgcTU6LRKZ4JNZ3TXAbRf4UASGiM417oh MgOE8DCl8DJgRpSV4qss3LHRRdJXAcEkfGUnq8NEbySH2GcSNqXUgTTzAbGonwPgXgRSQIOKLsZP1lAC XuUBF5JWOOHMPqoMVcSQ1nMT3sXQRgZBZ0LrFaYUDD GE1VDRVhYPSvcMOaECYzLIEEDE6VFDwqWLV6DOQxacUdtXFsMRjpWH9IOMFxnxUkNGVmAOFHUDv+Pg0K NI3tl3QnHPf0MsLzQK4pqy3FJTmUAwJgB9A9kFMaK8O1BPxcHx3SLVTnEIVcXAFzYDXWRYhhKU3DHQ6e dmP0ER0RvJKeQGRdFJEorJJwNGo8B78ijKDfCRovNU 0KICA+Jennifer+Im6QHDFoPQBsXNXsItAwFNJFZfGyB9UlJ3RKm4VrB5TfFR60bPlmavAgTFfyBP8XJE4uEQ UcDULAGC7LfHOjoC8murK5JFKaRPKTAmEhP37dvCWxXOObYKR7YYEzPb6ZRRLwH9TmpxHitNezmkOqMQ QsNCJSIA7CZExbpsTieKBgjYbbFL68tQypDA0QBh3Q SqSnHM2pru9BpRVqAy7WXES6AK2HAXYcCYOhBKGtOOB8FPOvAnYcDThuBFRzRBIsLXR7PWMeEFFmZF4N NkRdMFMmJGgmKKdzQWJfBHEmdx5IFJIyIDT1IZejAkHiJZKkIUZdSVbfRIHoAXKlICH2CNMmVFWoPC6O EtBmTLRpBBA7YRIeTRJvXMMpol7DOFHoUVOeOec6NY CbXTIxFWKrCZtlLELxHFY6VLM1OTDbWBLmHW7BMbXmHNJjEYqpBIapDBYvEPBxvf2ZKBSpOFPcMVm7Zk ZaSJCsMMHyWBgfXCCqGSTtIOT3SNQsUDUeKO5XQeXnBGCpJPR3RDXfRVYzOCOmrx3EPYArEEJiHEz4OP OxDYKqCJFaCDcoICMxRMZ5NaWfONOkQEFnOK3FIzTm LDGjINh8XUypOYAjSKFpwt5DKWVfUQSlKNO2UHVrDFRzANUfDQybJUZaJTVdCsK9LHLyHBFpIV8PJzVz STTrTuO4YQGfDOLlFAJmsy1XHTPcDSFeAfa0VSOnXEQrWRPgVIleBCOsDSNrVUEiSKQgRECzGE6SIoAt SKXuEvBmNQnsXMZnJFVlbx9GBRGgYQBqPSCpPNOmAJ ZqNBCaHNmvLKKyLJD1VwbbIHJrDWGeUP1MKqUdZIToOaX7ALRpCFMcGMZcui7THRIiHBEfKFO6OEFhTR RmESXtQDwkRCHlBTT5SDD1PANxNBWbIM1FPqMcTCWgJokjIIBfZWTkSZQgqb5UCHIiGZMwEfW3RaVmDV MpIEMuOWmgBHVgRSL8IMPaVNFxITDiAD5WQcRkAPNh Kki6PlglNTAhEFPgke5GUIMgOXI4VjirHzVlJTKtUJJrQGidVLJkSPToZQJ9SKZbUYNmAB4BLmQzCHPa MHOxQjBzORUqKYQgfw6WNNNeIRO8BlCtCzHpCRGcSDVaZJypURIlVOQiYnY0XHZlZYJuRE4WMkXqKGBp NCD4UCQcRZZuNZIlqr4LLTNkVYN7AYQeMDFkHUZlKF NePJvcCSVaODQ9WgM2FFTwFNOoZZ7GHvArVELtNYPwMELjTMGuEUKgrh0CXKZjDQZ5MLLmIOKdUKNyKL YaQHqgKCAjFZD8Qic8JPInTLQjYB1OGdRjLXIhMDQ8OdRqRPMoGOGaji9FZQRxCJV3SpxgOSIkZMXoUZ EnLOikITHqVMC8VEr0YMYuTNIiDC6HHpSzJKHpUZi0 KpVsOXQnXUKesu9LWMFiTYK7UYv6LLGePMFpXPBzEOypEGIsAPF9ODSpGUOdHJNlIC8VYtTfTEIhKFwa CVCwQUPaZBDdth6VfHKbpMttgn8FNLwNLc0WbQmxOGQ6RDszTt7gdLB9GkJpASSIRa7NdfXjZGUgJZMP OHflYGQiRIKcWHR7Ziq9Q4J5CQesTZC6UWG6TGW6R4 DrFZC1Fgf0EgK5KoFdRLWdXZT2Dud0G5F2VCknQNJ7CGp2FPDhQzqdYAY+OO0nBFm+Ko9Zu7YyfpX5js MhPTo8IPO4BD8UXEOFY5RJPk== ID Date Data Source [id number] 06/20/2021 04:21:35 PM EDT [facility] Name Value Range Interpretation Code Description Data Paulina rce(s) Supporting Document(s) History and Physical [facility] UYPYSj8lKxQUDcHw72/UGPvkJAVhh0SaWZjmAOk1MFvwKWMmL2GkQDZ6kG4lNLK2DFpUGtAbGdNsKXG9 lbm [file] JOHN+NOioNNqlqTo4wQWyLBWbWd7ORYPbVXClYBZyBC AgICAgICAgICAgICAgICAgICAgICAgICAgICAgICAgICAgICAgICAgICAgICAgICAgICAgICAgICAgIC TvEOWzKPCtXGXpDHMlMSHgTNKkKNFkJDSkETVoOI0LVEOhBZNhOXTfEIQfIVUdTFEhWLSuTMCmQUAkXJ AgICAgICAgICAgICAgICAgICAgICAgICAgICAgICAg EGOiZPQfRHJiAHHwLCKiZGZgTVWqPVBeOSJeGHVoXVYaPHLqQLXrBE9WZQHyWQUpCTHeKTGrFJDuDEKr ICAgICAgICAgICAgICAgICAgICAgICAgICAgICAgICAgICAgICAgICAgICAgICAgICAgICAgICAgICAg VMPcIDQdIYMxHNAuUYScZHMlXBSnIM3WELPcWJTpLH AgICAgICAgICAgICAgICAgICAgICAgICAgICAgICAgICAgICAgICAgICAgICAgICAgICAgICAgICAgIC MjIPQgPIWeXYNbQAMfVXTlSKVmJCLpDVEzZUFeUZGiBW7CGJKsUECxTFUbPOAjYWXyRUOxTSBlUEVlHW AgICAgICAgICAgICAgICAgICAgICAgICAgICAgICAg QDTcJKRtDJZwUTUxSQRvMAGfANDkHHHuEUKwPKKeRLKkJPAxBNOeIIVmHX5PMGCwVCOyDTZjHWZuVDYc ICAgICAgICAgICAgICAgICAgICAgICAgICAgICAgICAgICAgICAgICAgICAgICAgICAgICAgICAgICAg OXHpYRQyMNXfYSXyBSCxFKOwJAUiVPXaHN8HNYAoSL AgICAgICAgICAgICAgICAgICAgICAgICAgICAgICAgICAgICAgICAgICAgICAgICAgICAgICAgICAgIC DkVTWoLAIwKDAfZXOvCRBtEVWzEIIeATPwRIEpTAMbJXJbWR0DRUFfTMEmXEZjFUFpSBSkRDBnURUyZS AgICAgICAgICAgICAgICAgICAgICAgICAgICAgICAg VWPzHMSjTOPlHCMnKXSsBZPnALZaDNEwVVQjIGDcIOImWRTxQHLdWPTgTZSrML4IYXOdCDJaOKZjYDMl ICAgICAgICAgICAgICAgICAgICAgICAgICAgICAgICAgICAgICAgICAgICAgICAgICAgICAgICAgICAg LIXuHCNeHNFoZKTfZOCeDVKdSRHcUFAiFLKkNA6ODZ AgICAgICAgICAgICAgICAgICAgICAgICAgICAgICAgICAgICAgICAgICAgICAgICAgICAgICAgICAgIC MeKHRoUMFfYKBeWSFgJHHvVBNeXSIlCZXmNHVoRWCyHHBfYWQdGU5YAD51nPEve1H8IKXyPP4bxbh/Pg 5FSHjcfkZmvIRcGJ6ARqBkOE8sdc7ROnBjRA6fhf6Z KUdUHrSdT6A3zZIzVKZoKIFCRtCpF26zQAqkFa25IRtsVPViXdPsRHr7To9KWbNmX4dqGYIfGwU6EPLe TvQ4MRIgHnT8CADoXaCbNRJpCUAzTNDjUDTLKWL4XFDyLjGyZPizHL3Yf4ButRH4UJy+Ta7GOI6xx2Nf ZPeaZXVvLT0enm1UOIbUIgZkF3SbllH3ETB5KXCjQk 8GCLYiFOIjpTDdEEHvAYKLAgEeD1DmlJ28AWSKMx0+FLrqijPsUtdJMsM9TLMug5MdKZw2PV5YYVDcCM p8mVBnIAAZEEM2NKZeDF9dZAVSdDCjXVYcOJFMOWW9NSTrXeN8XhHgQkGsSQv0GVgjFJ4fEAckIH6ZDR O4GKwbJIAyPLUwV9yUCsDwDGNwJsCedTlkPU7GKfGh Q5XbunRlyJYaSGWbSXJCLk9+QAjysbQoXnxZFaSeVMSdo3RrZXj5UE1JNVGwMRtcXZ8MLJJdxS3dDNlj UB5VDnRrFnFsYXWQLqPeG87ohBDhUPf1C0IyPyTuFGCqQsksRBSjVWayVnJaHZYxXlEaDPldAB0+ID4+ LNruWV3QAXrnrjMwCAOaHr7NACUqPTQgLC7iOCUyIK FzI6C8vPsqJUCYBvReN4nvmxijGD2dHPPjZ275cUcyijVyMGQ2XAKxBr7XDEAqWQF2FRZshHFdZpnkXO UFIUppUQ1BxKYeNSJ1bV1bTGcuYPVrQDTnP8kELvVrjFbmOX38rYwyslExtSYiNYn+Os4LUU1dx5ZlZR s6bwCqLDzzVJDuYVlxSGPvFCFfXFWqWQN0HSI5QKRY AdOqRMNvQCGaRIxjULQeNDJztd3XUSDhPCLyAzXvYZOsKGWmBFImBBlsHPLvPPG2Dgb1SIYwLJAwII6V ExRtMHVtXAGwEVekAQOqPXTvru4WIFYqQHSoWbJ4OjJcLBMsAYMrUGbaZFQcASFdGrpwXUJoETBdDS5X FzMcGIVnWFcnJDWxPDZyMVEyua7PUOLmYSVqXvF7KX FmAYXsNOVtEKgdHYYjMMTnRoY4BLEsSXYuBO5IZoAhMENtIGZ5WqekYXIoSKYmqg5HNGPgHGIzNgB6YI TnBBPrBDFeLEvzNKBvPICbKET0WUMxKRNzTS2WYzRxWGQtYUYvBqvmZPCqBJLmir8QVNKmOULfUvXfVO KeEEUkBCPvBVraGINvJMH1OQQ9BPXzUEVaZA2FUwWy BFVlEBqcOyUyBESrMLJzcp5GVODqFKYjBQj7JBMbDTSyDIFjGQrsCFHkRGY6OWo4JTJmLMFpWM9JCkPo JRDiNLtfRfFeBPSlUMWdsr6VSJMgNHDvTDUrOLQhPRKfDHPyUBlvHBAgSBYiXLUoEWAeYHTkBG8XDtTy JOShPvA7FeUhOZHiKYLiul6GNJPkHMCmOFT8NPAkSE VgHPPzGSwhCOGjINNoLMo6KETdHJXgUX6IQfHxUGRmCrCvRfYmJXOfNOJzts8UVDHaDQWfLkJ4AYUdNG LjWPUrAVgoBNRfROUaHgAwCYMoFRTlDS1BHpWxZVPzJeL8IuWsTDUhMIDyfn3XPBDuPCUpMVQyQYVnFF JlIVYrQLciNYIuZXW8RfN6OCLpNFOsTH3QUkIsNYNm IsAzLDCsQHPrIJExjj4HWNEzVPJbORG9STSeZJSnDFDaJMcrZMUhTIW3DsE1PGDmUMXjRX7UMgHzKLYn FgD4WDScDNIqFAWojh0NVVLzGULkXqhyAuXwSVKiVDOgIXxzSCWvEUE5XHf2PEAgAFCkUD3MMeKaLLIi Aph3ZaSuJLEpWRGzss4SJYXjASXxBWbjBpNlQGTrEV IeMJslCQYhMFT6WCo2FYWxTLZdHJ6RIwSbERUbHamsADCnNRDxDANnvb5LsQUhcPumrc2LMAvQRb2QbR xzTUZfDXnxDg6dbAS3HJRkCUYVFb5NbuDuPPDtXVMTAZooQBMvSKKrLVE2DoNeUMEmOcM6OxTsXCjoRA QqSRv9GZY0ARGcZxU6ZCSqFUrhHZYbLtY6JYt4YhRn GqU3KWP2RzW7GhYeRME+YF2oZUx+Td6Ee3OplqG1gcUaXFecIHZ4WZ1PTDKBZ8VGUm== ID Date Data Source [id number] 06/18/2021 11:19:00 AM EDT [facility] Name Value Range Interpretation Code Description Data Paulina rce(s) Supporting Document(s) SARS coronavirus 2 RNA [Presence] in Res piratory specimen by NIC with probe detection NEGATIVE [facility] This lab was ordered by [facility] a nd reported by [facility]. ID Date Data Source [id number] 04/29/2021 12:33:00 AM EDT [facility] Name Value Range Interpretation Code Description Data Paulina rce(s) Supporting Document(s) SARS coronavirus 2 RNA [Presence] in Res piratory specimen by NIC with probe detection NEGATIVE [facility] This lab was ordered by [facility] a nd reported by [facility]. ID Date Data Source [id number] 03/25/2021 05:54:29 PM EDT [facility] Name Value Range Interpretation Code Description Data Paulina rce(s) Supporting Document(s) Progress Note [facility] NXNAXf5zPfQVWxSh01/KILzbTTWgh2XgUSkfAHa0CGyaMIMgI3OwWSF6sC0uLEO6FJaTKlXwAwJyCxD6 [facility] [file] ICAgICAgICAgICAgICAgICAgICAgICAgICAgICAgICAgICAgICAgICAgICAgICAgICAgICAgICAgICAg KKKiYJBkEPMyZMWvMZMiAVBsKNYnFZKeEOAbNTQhWSRlZZGeTGJkEZ4WFZPrDDJbYFHfATMfTYQbBJHh ICAgICAgICAgICAgICAgICAgICAgICAgICAgICAgIC UvUGOyUXQbZVAcXAChJLBkUWGvMDIbSNHoHSZyIKGnFXYfXTSmIJBmHAHcHEOeEXGpKB7IHRTkMEZsSC AgICAgICAgICAgICAgICAgICAgICAgICAgICAgICAgICAgICAgICAgICAgICAgICAgICAgICAgICAgIC AgICAgICAgICAgICAgICAgICAgICAgICAgICAgICAg VQ2VNGAbUUVfXQJdARWfMBLwUOUiMCSyNILjNENcYPPwRSYgWNPoHMUaXMTsXRIqAPNaFAVkIFTbXOKq DORwGAJnKKLnHKBqNTKaYMRdRLUlIKRcSYEfKIQnAIGcFIBpNIRoVRNeVU6KWYMzHERzOWPkSEBcHRGq ICAgICAgICAgICAgICAgICAgICAgICAgICAgICAgIC HlHNOxSXCnLPWfNIIqXQLlJRExVPDvJTFiQTSrGIWlSIJsMEUkMGHuYXFsABUgCGGuOQJbMK4QYJBqRK AgICAgICAgICAgICAgICAgICAgICAgICAgICAgICAgICAgICAgICAgICAgICAgICAgICAgICAgICAgIC AgICAgICAgICAgICAgICAgICAgICAgICAgICAgICAg CUGbQL9XGHNpWKJwXFCxXWXwVVUhZDPvVIJjYCInEHNrNAJtPTJmKIWhYBXcEFPbTXCiVQBhZXGyVCLi CJMsOPJbXQThQUCxLHByFTWsKNGkGZXiTARsVOCyIJBwWZAaFSEhWVRxJMOoXU7KRLQoGQWpKOMdVOZo ICAgICAgICAgICAgICAgICAgICAgICAgICAgICAgIC KyDXKaKLQgUSUrYFSsXSLrRWEuGCLoQZNwQOUlZHTsSUAaWDPhCGEmWGCtVFTuBYZeXLSbMCDpJQ9FQS AgICAgICAgICAgICAgICAgICAgICAgICAgICAgICAgICAgICAgICAgICAgICAgICAgICAgICAgICAgIC AgICAgICAgICAgICAgICAgICAgICAgICAgICAgICAg YKLkLSYcWC6ITXSbGJBoVWFlDNQkPJTxWZAjSDZmADFyXOMrKDUzYOTpGOVdAYKoBDBpIKEcCUClNFKc CFAmHLToTPTuZDEsPEDcPURkFIHqIMYfWTZaPPAlLPQyHDOzYARnCBYbHOUaSLBwKQ2JIV61eIRmp6R7 JMCaQU8hbam/Py8OODqwwpGrmJQrLQ6TEvVsMO8cxo 0IKtFcZJ1dle2OBMvJDdUcQ9U4hPQrQYQlFXACHaOuJ55pKBlaPh56EKhtHCSvCnYcOQt3Vx5AUyKbW0 asJHSgHzF6JEQzCzB5MODlThP7QHSvMnFqIGNzDBGjJKFwTNDEQEJ6XVWmVcNfUtHyCRDbZMleSEHKKM 8OFdTpL4VqyE72JWjOQf7+DQplbmRvYmoNCjMzIDAg s6NaHYj2DS9FXCYbOiemj0UxFsOgWBTJEEicOI7RNCF8BGZ1WSJkFh4WBAGvQ465fpQbVB7UIx1MAdUw OF2cwy4JVbCqKEIyIctCPin6TRxoOR0MtHSaJXjXad4muaVwedVPn6CrvmIyqGMUa28mHaK0vMXtULcx AVPzNXIzIu3bEu8vYSChYAU7LlVnIKPBQE9VNMNxDY RmwKDgTPDpWTJKPY4JGSjxIMR9PRLadmWflOVgXDwqWY6GBBKxluXpKxBaXDEBULr+Jz7BFK7yk3BaNT ghDJKrLL1jme1DRVzFGwQpE6N1kWHfM1L4EJttFg4HOVLpTXEwZcZqZKMHHAqkQL5YTR9vxgU1FS8YoP ZgDZKgBJUlzHWyRGp4N19hyCThUPusNU0SVPU+Jennifer+ Fy6DXLJzQWYdQNKeDdVcTTESChVaH9VrV9AIc0PfO3PiII24bGdtrtEzABabHD2RBO6rSACnGJUJAC4X qSJfnA4addYqThOvKIFUDnCgI46siNDtCWQpZZAjPVAmUk7UFBVbW6UnmoPqjGgagmZdHAPvTCFVSB1N SFjtrpEbjEXucMpcTY95yEokVZ9AFd3GMdVfSQ1jnf 9BhYDcZv1ODHCjCl3LRDKxXXWbCCRnORY3UGObGpTqKWppDHDaGYXsICI4TRRyADVoQR7UZoNpZRIrTl yeSexyWXRnNQHnsf7KCLMgUZOqHCc7UmPeMGPfQSJxPHxwWUXkWDUcUKH4QVTpOTKhCK2XJhZlFVJmPO S0JDmcURJkFZWmyg5TUFApEFIcWDYvYCRkNYGtNVJa HWjlWCAeAIV5RVw4ADXuVAKuIG0AZhUtNUPpKFhcApnqVFVkFWEqub1ZIGXqCLDoKDZ8CTHdLFUkGHRm CCwaHWRaCXAiGqg6JQYmZIFyQG6BHyEuNLFlQZL8IBMqTPPzITAfyy2KKYIwSYSkWqm9URLtIIXyZJMh FWghRUAbSUK6APauHOIdBSVsIC0QBoFiIKKhSYOrIJ OhUIFuJNMieg6SBCPlFAYaTSF9WCCkOBAvLEWgNZnwXPXkDQV5XRa0ZRZxAFWnUU8DQeEjRMLwPcExIP RtYTApXYQbty8UQKMsQTPyYwS9ZAXdYPCsWOOjAAxlIVEdAGPqGOTdYYVlXWBtTH6PPrNmIZZdRlTwPQ PySFAkPRGwvt4XHJDpZUTrHAMyMxDeHGIfROUlEFuh JQIwKEX8FhVkVYCvZPUaWY9MLqZmHVZbGlMdYPPpVVEbWVPyjp7YYTReNRSdRAP5LBTzGUJoWGXzDCvw DLSvERU0ZVK2RUMwMLHpRI5GDvSlMQJkIbL8XLUdTPAxKVHxvm2NETNzLBHhQuP9TAOnDAHiMBJoSAai RHVuFHH7NGJfUYPrUSJxKX3ZHmRvOVWrAwt5RNgpGL HhVQQjhb6NOFGaIHVhAyq5JHDsLHJvSXQoPSenGGAdKLP4SGK5GKEtWINyCZ9SBdNwOWWrTvg4KGYgOW UhDYGdzw5GAIMpXZTbJFm8VMIvDPZcPYIyOQscTDWaGGTsAQWgVZGsDZMcCZ2SWvSeYJTcBHMbCLooIT VyFDKygh8CmPPagHygjv9UBCxNEc1SuRufPUX0FQnu Xz5tmTGzCGRoMDDFLr0YncAgMPShSWAAOAlePUXzEPN3DaOrJRVhXiBkPFS8X0A7TbepU2CgDze0UwSj MrIrAwK4MWw5UkXpQQKpMUI8OmXfBFZcIRSsOuEkXPN1HpV3YRO+MW4nTUa+Ww4Hn7BbsdT9bwNqERo7 EML6Nj7ZYGAQK9RXVv== ID Date Data Source [id number] 12/12/2020 04:46:15 PM EDT [facility] Name Value Range Interpretation Code Description Data Paulina rce(s) Supporting Document(s) Progress Note [facility] NVPAWa7rEtJSFbIo01/FSCqdHZCte5WgGKifLDa3ITicTYPzL7HkCBH5yV7tSZD2VJmUQfAoIuUsJJX9 lbm [file] PsbnOFLmKGEmOiG6AiF7BPRpVtN5UbXqJF7FKp1UUzE2HLB3bWXsNx0APUJaNSJYNmCjLL2DJAg= ID Date Data Source [id number] 10/30/2020 12:00:00 AM EST [facility] Carlos Miller MD Patient Name: NIGEL [id number] [facility] Date of : 1960[place] [address] Date of Exam: 10/30/2020#: Fax: [phone] EXAM: [...] fluoroscopy time which is a 75% reduction inradiation.Eulalio Howell, FRANSICO/Liza you for referring NIGEL SEVILLA to our office. Electronically Signed - EULALIO HOWELL MD 10/30/20 13:06 Name Value Range Interpretation Code Description Data Paulina rce(s) Supporting Document(s) ID Date Data Source [id number] 10/30/2020 12:00:00 AM EST [facility] Carlos Miller MD Patient Name: NIGEL [id number] [facility] Date of : 1960[place] [address] Date of Exam: 10/30/2020#: Fax: [phone] EXAM: [...] fluoroscopy time which is a 75% reduction inradiation.FRANSICO Slade/Liza stevens for referring NIGEL SEVILLA to our office. Electronically Signed - EULALIO HOWELL MD 10/30/20 13:06 Name Value Range Interpretation Code Description Data Paulina rce(s) Supporting Document(s) ID Date Data Source VITAMIN D 25-HYDROXY 10/08/2020 12:00:00 AM EST eCW1 ([facility]) Name Value Range Interpretation Code Description Data Paulina rce(s) Supporting Document(s) 26.2 30.0-100.0 TOTAL 25(OH) VITAMIN D eC W1 (Pending Sale To [facility]) ID Date Data Source TSH 10/08/2020 12:00:00 AM EST eCW1 ([facility]) Name Value Range Interpretation Code Description Data Paulina rce(s) Supporting Document(s) 4.340 0.358-3.740 THYROID STIMULATING HORM ONE eCW1 (Pending Sale To [facility]) ID Date Data Source LIPID PANEL (CARDIAC RISK) 10/08/2020 12:00:00 AM EST eCW1 ( Pending Sale To [facility]) Name Value Range Interpretation Code Description Data Paulina rce(s) Supporting Document(s) Cholesterol in HDL [Moles/volume] in Serum or Plasma 68 >40 HDL CHOLESTEROL eCW1 (Pending Sale To [facility]) Triglyceride [Mass/volume] in Serum or Plasma by calculation 191 <150 TRIGLYCERIDES LEVEL eCW1 (Pending Sale To [facility]) Cholesterol [Moles/volume] in Serum or Plasma 208 <200 CHOLESTEROL LEVEL eCW1 (Pending Sale To [facility]) 140 NON-HDL-C eCW1 (Formerly [facility]) 3.058 <5 CHOLESTEROL RISK RATIO eCW1 ([facility]) Cholesterol in LDL [Mass/volume] in Serum or Plasma by calculation 102 <100 LDL CHOLESTEROL eCW1 (Pending Sale To [facility]) ID Date Data Source Comprehensive Metabolic Profile (CMP) 10/08/2020 12:00:00 AM EST eCW1 (Pending Sale To [facility]) Name Value Range Interpretation Code Description Data Paulina rce(s) Supporting Document(s) 0.76 0.55-1.30 CREATININE FOR GFR eCW1 ([facility]) 87 70-100 GLUCOSE, FASTING eCW1 ([facility]) 14 7-18 BLOOD UREA NITROGEN eCW1 ([facility]) 3.8 3.5-5.1 POTASSIUM SERUM eCW1 (Replaced by [facility]) 102 98-107 CHLORIDE LEVEL eCW1 (Pending Sale To [facility]) > 60.0 >45 GLOMERULAR FILTRATION RATE eCW 1 (Pending Sale To [facility]) 141 136-145 SODIUM LEVEL eCW1 ([facility]) 10.0 8.8-10.2 CALCIUM LEVEL eCW1 (Pending Sale To [facility]) 32 21-32 CARBON DIOXIDE LEVEL eCW1 ([facility]) 19 7-37 AST/SGOT eCW1 (Formerly [facility]) 28 12-78 ALT/SGPT eCW1 (Formerly [facility]) 133 45-117 ALKALINE PHOSPHATASE eCW1 ([facility]) 0.3 0.2-1.0 BILIRUBIN,TOTAL eCW1 (Replaced by [facility]) 7.5 6.4-8.2 TOTAL PROTEIN eCW1 (Pending Sale To [facility]) 1.0 1.2-2.2 ALBUMIN/GLOBULIN RATIO eCW1 ([facility]) 3.8 3.2-5.2 ALBUMIN eCW1 (Formerly [facility]) ID Date Data Source [id number] 06/10/2020 09:13:13 AM [facility] Name Value Range Interpretation Code Description Data Paulina rce(s) Supporting Document(s) Progress Note [facility] WBVPId7aScDBMgDc66/AWVtlSSHkz0VwSKcqXOl5JNfiDJWyA8PxEZI6uD3xKJX5WEuDLdLnDlEcRKT3 lbm [file] fRsx/sfE9e2HdoHmkEUCjeBSXkNEEFpTsQQXWhRZI77fLRwQL/fguPlt07nMId/Sofía+BibuW8Dg8/Vlb ks18ngwGE5Q+Pvmb3/ogO79WI/2zL4qL8XSB7jx8KrSTUnJQekhrTrKlrUBlOnJEUjg9ZqPDoxYPz8QT gfHNNlF3S7cWMpVTEpBD1KBNCaPH4GQLIfmmVwFuWl AVRHFgGdUFHxXjKhd1SzW7JzZFPvWDATROtaSHPlJ46fSAdgSe31PQwbMBQrOnXaUNf3Qo3SMdJqAFMy N20khDGoqKKiXGTwHJTYIKgvTIEmJ3bvs0JzDNh6RZ6KZN4MocOhs6AqfcJhX1qbV8QZTM2ZEQFpI4XB P7IhW9uoAjSdj5WkM6zgYsPhu4MtWs8QOeLrYf5TZo YwEG8sbr8XPFYsHNHhHhjURtPbHThnHmtunYJoEG6NaVL9KWDnH99lXSZxQZWaM9ZoVQPgMlr+Pg0KIC AtjEXcLQ7PAjeJ0R0hg7zZHa0+bW8DjA29LSfu6bQdQvKv3lmOQ3sUBf2D6l+2RUwsvQPq1PR5z/1RfE kx9gsTTdz3E/sIZGsQ2XuqxUh4h+U49Z/rsOLGbS3y rI2tz42C8CuzdF/+ssd05okof2dd8Tw834tyK8N+mk4L5/mz4lzfACaa3Xjc40onOF5liocfj/HH9Cyf p0W+mI+PLo+LzX+4s3QJzQNniaHiuAv0uIQuK4xuH1/66A2DM87a6hsrH5GtBB3Hv2hSEElQU4qmInSH Zx++addi/Qeb8rwerxMKRhckZh5GhEJyRROdj+tVqve Ljb8XmgYiBXXVHGXmWYaH2Rzl7nw/YvpoiOFOKAZtzRhCaIfQoCi/wk05pljyqW6BPW/cLRuNPd1WMIU rQKcOp5xmQEjkh4LzrxoDzvnWqs+Prabhakar/QJPoiOYi4so4CANj7v6MIhZD4gGX6UoXdYIkf3QUf4IHuU1R [file] ICAgICAgICAgICAgICAgICAgICAgICAgICAgICAgIC AgICAgICAgICAgICAgICAgDQogICAgICAgICAgICAgICAgICAgICAgICAgICAgICAgICAgICAgICAgIC AgICAgICAgICAgICAgICAgICAgICAgICAgICAgICAgICAgICAgICAgICAgICAgICAgICAgICAgICAgDQ ogICAgICAgICAgICAgICAgICAgICAgICAgICAgICAg ICAgICAgICAgICAgICAgICAgICAgICAgICAgICAgICAgICAgICAgICAgICAgICAgICAgICAgICAgICAg ICAgICAgICAgDQogICAgICAgICAgICAgICAgICAgICAgICAgICAgICAgICAgICAgICAgICAgICAgICAg ICAgICAgICAgICAgICAgICAgICAgICAgICAgICAgIC AgICAgICAgICAgICAgICAgICAgDQogICAgICAgICAgICAgICAgICAgICAgICAgICAgICAgICAgICAgIC AgICAgICAgICAgICAgICAgICAgICAgICAgICAgICAgICAgICAgICAgICAgICAgICAgICAgICAgICAgIC AgDQogICAgICAgICAgICAgICAgICAgICAgICAgICAg ICAgICAgICAgICAgICAgICAgICAgICAgICAgICAgICAgICAgICAgICAgICAgICAgICAgICAgICAgICAg ICAgICAgICAgICAgDQogICAgICAgICAgICAgICAgICAgICAgICAgICAgICAgICAgICAgICAgICAgICAg ICAgICAgICAgICAgICAgICAgICAgICAgICAgICAgIC AgICAgICAgICAgICAgICAgICAgICAgDQogICAgICAgICAgICAgICAgICAgICAgICAgICAgICAgICAgIC AgICAgICAgICAgICAgICAgICAgICAgICAgICAgICAgICAgICAgICAgICAgICAgICAgICAgICAgICAgIC AgICAgDQogICAgICAgICAgICAgICAgICAgICAgICAg ICAgICAgICAgICAgICAgICAgICAgICAgICAgICAgICAgICAgICAgICAgICAgICAgICAgICAgICAgICAg ICAgICAgICAgICAgICAgDQogICAgICAgICAgICAgICAgICAgICAgICAgICAgICAgICAgICAgICAgICAg ICAgICAgICAgICAgICAgICAgICAgICAgICAgICAgIC ImSTPpOWFpTRRbEMPpCXIyQYYzOGIvBQHcOUp9Y4voKOLxGRZvGS7dHBj5Yg1+MGtXHrDtXPK1hmYxvP 3EOU8mx9XqWWixGROcb9TrCAb6RL0SVRWrXJriCZ3QCTdauw3PIXMhUEJpoTKWv5omKkKcAWX9SCYeHk wfPE6WPNXxA4efpuRyETSsWIFCCYxbTVRVVOmzHDXW EFRmJLQjQnRtItPmKMJvYTZsTOKCTES5XIChKyJnZSphTL9Tn1DyiLD7FQj+Ty7VOY4dv0EuLYblLCRf MA9yup4DANbDYqNmD1OtldP8JQG9COOlYy7ANACzIGJvuCArQTTcQSYUPxWwP6RqzV43XQMIEr2+DQpl gfJaZjoGMzD2ZENmr7LjKLk3YB3ADTKaIRk7xKImAZ LkP8Los8MmHx44WZTlXtcwDH6nTD7mkIArhuBgNQ6CQTP3EZKlUbRgOdVyTPMoFSxwMABOHSeQQkSmY1 Moj2MmXlB1QENfFfNjSDlsKKBhFzJ0QQ11uLaiLX0GHICbNGElHE25UYR9JFRfHz1VRp0ZOzXtGS4fif 8ACiBkAVJkEvtTFyn6QSzwRB2LnYXeB1ZhwBCgj9yU JeZjQ1YVLHDsDJJvEj2KFTKhGaZjWROuILidZE2kKGWmWEEXfYilalO4UE1UEI3rshRvMQ9FSdRcQl0x Gg0BTdQhR5RrU8MePADkVSORDMyoIC0IIIokUX8hYV0Rw2EErATdyE2kmu8SUWBlJMVcDrhwkb0ZKsgc G2D8uKftMJIxXxJuAJGUNFzkQY3KIBCbTIQ3KKIjBr NxYYDUWmXdM78uNM2TO7Lid26uFeM5YBXsGsNcTDrgYT29uEfvryDxhDKrpEyoMT1WJm4+DQplbmRvYm yVHhprXAIXPpXsKexJCaElLTWsEMZhEOLqUaW9JyGsPh1TMVToLMAiEQIiLlNgQKOuNAFgZHsgVVWsHE Z8HMueHFTtNJJmNX8JSgHyXFTxCNQbIIdkRPCmGHRi mb9VWGBkZHAlIED2KdOmMIOiQEHzGCcpBXSyAUKmMpy5KCEhVESgIE8SXzTyXBDvYLE4RTFuNOEoQLYr mv8ODSSwUDPcPlL9XVCeJEYcTOZpJQqcXYViMHD1IpX5YSPmTLTsKI8SQuNlWTJxOIQmYsGfDVMqIECh zk9JSZJbNQSqBXZ0EHJiPYOzYFDuBAyuQQYeIFLoGc h8KXEyUJWaZF3WIsSpCFCkFEV7HCDkMIXnAFGbqi9XPXDeFDNfNeT7DlBtNFGwSLSpMVxiVYUmJHX0FG YlWJNfQGIoSQ4OQwAgGBLjUMm8SeGmPPNvIMKtdb5SYBAnZFZcVOH0WKGbAOTpJOKfDEdhDVEoEIIiAI p5QCUcMSLuVT4OMuMnKFSiYnXqJVBvXJNcZEMyax1U DDJuKKAyMkG4OFPjSMLcPQEzPJzsWFXoWXWgLlQ5GKQoNHKbSJ6DJwFiRIVuOeB7OYNqRUJpWGHhnv5X IFHyUBBkQNLeHRQjTCXfMXSpCOuyIGGwHWT2NxReOSAyVNGwTG3REoMuIMTjKsA6OLIhVMQiHSHdbo3I ADHbHENoTrSzBCSmAAWhHIToGCxuJUJjHOL4UCZ8DN DeGAIkAR5UEbHeIPUpTvK3VFIoAUFrYDAooh3HDTIvLGShBeQiBPGxEJNmBTIeTLknWADxJUE4LZPyUO MhMKPpRA2KIwYqPQKmWodzRNRqOESbNTFzsr1VQWXoADTwCFD0GnIdLPMnGBEnJNgmAKTmAVV2LOFtEL HgBXMxNI5URhLuFJNfLxt6EtphVELvCGLuxs3OMMWf PYL5GWU3SCZmRLVuWVCrQVeoZJYzDRXbCHB1QXMpBYGkRA0WZrGpBUNbSDC0NtPyCCIbFJYifd3OhMKd aWchhe7SRKqTTu1CfWbqBBV2TXbqNl8zzDWbWsTpHUCKXv6FcsUoIGEjUKKJJZpeYKEjOKZsSiN6NLLs WLS5OPZ9NtW1UKH5JvH6KgY0Rki2EsWiUmR2PvSwFY d1WdZwIJDzYANcSpXbZfNxQRnlCFT2SOdtEzD+IC2eEUo+Ox0Hh2PrlcS2kpXhIMf0MNpnVu0XJRVYC4 YNCg== ID Date Data Source PAP REQUEST FOR SERVICE 06/09/2020 12:52:46 PM EDT eCW1 ([facility]) Name Value Range Interpretation Code Description Data Paulina rce(s) Supporting Document(s) Laboratory studies (set) PAP REQUEST FOR SERVICE eCW1 (Pending Sale To [facility]) ID Date Data Source [facility] Hema Screening Bilateral (Ultrasound if Indicated ) (3D Mammo) 06/09/2020 10:51:08 AM EDT eCW1 (Pending Sale To [facility]) Name Value Range Interpretation Code Description Data Paulina rce(s) Supporting Document(s) WWBC Hema Screening Bilat eral (Ultrasound if Indicated) (3D Mammo) eCW1 (Pending Sale To [facility]) ID Date Data Source [id number] 05/13/2020 08:45:51 AM EDT [facility] Patient History Medical History:Hip repl acement 2018 leftacid reflux disease arthrisits thyroid conditionMental health issues Family History:Social/Personal History: Smoking Status: never smokerCurrent Problems: Other and unspecified diseases of the oral soft tissues (ICD-528.9) ([id number])Current Medications: AMOXICILLIN 500 MG CAPS (AMOXICILLIN) 4 [...] appts. Chart Notes:austen (May 13 2020 10:09AM): AR(-). CC: none. Reviewed Xrays. Exam: caries detected. OCS: WNL, IO/ EO completed, No significant hard findings upon clinical exam.Additional PPE requirements due to COVID-19 in the dental setting, N95, surgical mask, hair covering, gown and shieldPt was cooperative.. OHI given Referral: N/A NV: Yady Giles by austen (05/13/2020 10:09 AM): ; alfonso (May 13 2020 9:43AM): [facility]- no changescc-I keep getting sores which come [...] Patient has lost her crown on # 9BYady ortega by alfonso (08/15/2019 11:13 AM): Assessment & Plan Medications:AMOXICILLIN 500 MG CAPSCHLORHEXIDINE GLUCONATE 0.12 % SOLNCALCIUMDOCUSATE SODIUMOLANZAPINESERTRALINE HCIPOLYVINYL ALCOHOLTIMOLOL MALEATELANOPROST EYE DROPSMELOTONINCYCLOBENZAPRINETRAMADOLOMERAZOLELEVOTHRYOXINE SODUIMLITHUIM CARBONATEHYDROXYCHOLOROQUINE SULFATECALCUIM CARBONATEQUETIAPINE FUMARATEASPRINOLANZAPINEAMMONIUM LACTATESERTRALINE HCLFEXOFENDINE HCLAllergies:* HYGROXYZINE (Critical)* CHLORPROMAZINE (Critical)* TJOPRODAZINE (Critical)* BUPROPION (Critical)* BENZONALATE (Critical) Name Value Range Interpretation Code Description Data Paulina rce(s) Supporting Document(s) Procedure Social History Code Duration Value Status Description Data Source(s ) Smoking 07/01/2021 12:00:00 AM EDT Never Smoker completed Never S moker eCW1 (Pending Sale To [facility]) Smoking 07/01/2021 12:00:00 AM EDT Never Smoker completed Never S moker eCW1 (Pending Sale To [facility]) Smoking 07/01/2021 12:00:00 AM EDT Never Smoker completed Never S moker eCW1 (Pending Sale To [facility]) Smoking 07/01/2021 12:00:00 AM EDT Never Smoker completed Never S moker eCW1 (Pending Sale To [facility]) Smoking 06/29/2021 12:00:00 AM EDT Unknown if ever smoked comp leted Unknown if ever smoked [facility] ([facility]) Smoking 06/16/2021 12:00:00 AM EDT Unknown if ever smoked comp leted Unknown if ever smoked [facility] ([facility]) Smoking 06/11/2021 12:00:00 AM EDT Unknown if ever smoked comp leted Unknown if ever smoked [facility] ([facility]) Smoking 05/25/2021 12:00:00 AM EDT Never Smoker completed Never S moker eCW1 (Pending Sale To [facility]) Smoking 05/25/2021 12:00:00 AM EDT Never Smoker completed Never S moker eCW1 ([facility] Sale To [facility]) Smoking 05/25/2021 12:00:00 AM EDT Never Smoker completed Never S moker eCW1 ([facility]ending Sale To [facility]) Smoking 05/25/2021 12:00:00 AM EDT Never Smoker completed Never S moker eCW1 ([facility] To [facility]) Smoking 05/25/2021 12:00:00 AM EDT Never Smoker completed Never S moker eCW1 ([facility]ending Sale To [facility]) Smoking 05/25/2021 12:00:00 AM EDT Never Smoker completed Never S moker eCW1 ([facility]ending Sale To [facility]) Smoking 05/25/2021 12:00:00 AM EDT Never Smoker completed Never S moker eCW1 (Pending Sale To [facility]) Smoking 05/20/2021 12:00:00 AM EDT Unknown if ever smoked comp leted Unknown if ever smoked [facility] ([facility]) Smoking 04/29/2021 12:00:00 AM EDT Unknown if ever smoked comp leted Unknown if ever smoked [facility] ([facility]) Smoking 04/26/2021 12:00:00 AM EDT Never Smoker completed Never S moker eCW1 (Pending Sale To [facility]) Smoking 04/26/2021 12:00:00 AM EDT Never Smoker completed Never S moker eCW1 ([facility]ending Sale To [facility]) Smoking 04/26/2021 12:00:00 AM EDT Never Smoker completed Never S moker eCW1 ([facility]ending Sale To [facility]) Smoking 04/26/2021 12:00:00 AM EDT Never Smoker completed Never S moker eCW1 ([facility] Sale To [facility]) Smoking 04/26/2021 12:00:00 AM EDT Never Smoker completed Never S moker eCW1 ([facility] To [facility]) Smoking 04/14/2021 12:00:00 AM EDT Unknown if ever smoked comp leted Unknown if ever smoked [facility] ([facility]) Smoking 03/26/2021 12:00:00 AM EDT Unknown if ever smoked comp leted Unknown if ever smoked [facility] ([facility]) Alcohol intake 03/25/2021 12:00:00 AM EDT Current non-d kenan of alcohol (finding) completed Current non-drinker of alcohol (finding) [facility] Tobacco use and exposure 03/25/2021 12:00:00 AM EDT Never used co mpleted Never used [facility] Smoking 03/25/2021 12:00:00 AM EDT Never smoker completed Never s [facility] Smoking 03/10/2021 12:00:00 AM EDT Never Smoker completed Never S moker eCW1 ([facility] To [facility]) Smoking 03/10/2021 12:00:00 AM EDT Never Smoker completed Never S moker eCW1 ([facility] To [facility]) Smoking 03/10/2021 12:00:00 AM EDT Never Smoker completed Never S moker eCW1 ([facility]ending Sale To [facility]) Smoking 03/03/2021 12:00:00 AM EDT Non Smoker completed Non Smoke r [facility] ([facility]) Smoking 12/23/2020 12:00:00 AM EDT Unknown if ever smoked comp leted Unknown if ever smoked [facility] ([facility]) Smoking 12/21/2020 12:00:00 AM EDT Unknown if ever smoked comp leted Unknown if ever smoked [facility] ([facility]) Alcohol intake 12/12/2020 12:00:00 AM EDT Current non-d kenan of alcohol (finding) completed Current non-drinker of alcohol (finding) [facility] Smoking 11/27/2020 12:00:00 AM EDT Unknown if ever smoked comp leted Unknown if ever smoked [facility] ([facility] Smoking 11/10/2020 12:00:00 AM EDT Unknown if ever smoked comp leted Unknown if ever smoked [facility] ([facility]) Smoking 10/23/2020 12:00:00 AM EST Unknown if ever smoked comp leted Unknown if ever smoked [facility] ([facility]) Smoking 10/07/2020 12:00:00 AM EST Never Smoker completed Never S moker eCW1 ([facility]ending Sale To [facility]) Smoking 10/07/2020 12:00:00 AM EST Never Smoker completed Never S moker eCW1 ([facility]ending Sale To [facility]) Smoking 10/07/2020 12:00:00 AM EST Never Smoker completed Never S moker eCW1 ([facility] Sale To [facility]) Smoking 10/07/2020 12:00:00 AM EST Never Smoker completed Never S moker eCW1 ([facility] To [facility]) Smoking 10/07/2020 12:00:00 AM EST Never Smoker completed Never S moker eCW1 ([facility] To [facility]) Smoking 10/07/2020 12:00:00 AM EST Never Smoker completed Never S moker eCW1 ([facility]ending Sale To [facility]) Smoking 10/07/2020 12:00:00 AM EST Never Smoker completed Never S moker eCW1 (Pending Sale To [facility]) Smoking 10/07/2020 12:00:00 AM EST Never Smoker completed Never S moker eCW1 ([facility] Sale To [facility]) Smoking 10/07/2020 12:00:00 AM EST Never Smoker completed Never S moker eCW1 ([facility] To [facility]) Smoking 10/07/2020 12:00:00 AM EST Never Smoker completed Never S moker eCW1 ([facility] To [facility]) Smoking 10/07/2020 12:00:00 AM EST Never Smoker completed Never S moker eCW1 ([facility] To [facility]) Smoking 10/07/2020 12:00:00 AM EST Never Smoker completed Never S moker eCW1 ([facility] To [facility]) Smoking 10/07/2020 12:00:00 AM EST Never Smoker completed Never S moker eCW1 ([facility] To [facility]) Smoking 10/07/2020 12:00:00 AM EST Never Smoker completed Never S moker eCW1 ([facility]ending [facility] To [facility]) Smoking 10/07/2020 12:00:00 AM EST Never Smoker completed Never S moker eCW1 ([facility] Sale To [facility]) Smoking 10/07/2020 12:00:00 AM EST Never Smoker completed Never S moker eCW1 ([facility]ending [facility] To [facility]) Smoking 10/07/2020 12:00:00 AM EST Never Smoker completed Never S moker eCW1 ([facility] To [facility]) Smoking 10/07/2020 12:00:00 AM EST Never Smoker completed Never S moker eCW1 ([facility] To [facility]) Smoking 10/05/2020 12:00:00 AM EST Unknown if ever smoked comp leted Unknown if ever smoked [facility] ([facility]) Smoking 09/16/2020 12:00:00 AM EST Unknown if ever smoked comp leted Unknown if ever smoked [facility] ([facility]) Smoking 08/27/2020 12:00:00 AM EST Unknown if ever smoked comp leted Unknown if ever smoked [facility] ([facility]) Smoking 08/07/2020 12:00:00 AM EST Unknown if ever smoked comp leted Unknown if ever smoked [facility] ([facility]) Smoking 08/05/2020 12:00:00 AM EST Unknown if ever smoked comp leted Unknown if ever smoked [facility] ([facility]) Smoking 06/29/2020 12:00:00 AM EST Unknown if ever smoked comp leted Unknown if ever smoked [facility] ([facility]) Smoking 06/26/2020 12:00:00 AM EDT Unknown if ever smoked comp leted Unknown if ever smoked [facility] ([facility]) Smoking 06/16/2020 12:00:00 AM EDT Never Smoker completed Never S moker eCW1 (Pending Sale To [facility]) Smoking 06/16/2020 12:00:00 AM EDT Never Smoker completed Never S moker eCW1 (Pending Sale To [facility]) Smoking 06/16/2020 12:00:00 AM EDT Never Smoker completed Never S moker eCW1 (Pending Sale To [facility]) Smoking 06/16/2020 12:00:00 AM EDT Never Smoker completed Never S moker eCW1 (Pending Sale To [facility]) Smoking 06/16/2020 12:00:00 AM EDT Never Smoker completed Never S moker eCW1 (Pending Sale To [facility]) Smoking 06/16/2020 12:00:00 AM EDT Never Smoker completed Never S moker eCW1 (Pending Sale To [facility]) Smoking 06/16/2020 12:00:00 AM EDT Never Smoker completed Never S moker eCW1 (Pending Sale To [facility]) Smoking 06/16/2020 12:00:00 AM EDT Never Smoker completed Never S moker eCW1 (Pending Sale To [facility]) Smoking 06/16/2020 12:00:00 AM EDT Never Smoker completed Never S moker eCW1 (Pending Sale To [facility]) Smoking 06/16/2020 12:00:00 AM EDT Never Smoker completed Never S moker eCW1 (Pending Sale To [facility]) Smoking 06/16/2020 12:00:00 AM EDT Never Smoker completed Never S moker eCW1 (Pending Sale To [facility]) Alcohol intake 06/10/2020 12:00:00 AM EDT Current non-d kenan of alcohol (finding) completed Current non-drinker of alcohol (finding) [facility] Smoking 06/09/2020 12:00:00 AM EDT Unknown if ever smoked comp leted Unknown if ever smoked [facility] ([facility]) Smoking 05/26/2020 12:00:00 AM EDT Unknown if ever smoked comp leted Unknown if ever smoked [facility] ([facility]) Smoking 05/21/2020 12:00:00 AM EDT Unknown if ever smoked comp leted Unknown if ever smoked [facility] ([facility]) Vital Signs ID Date Data Source UNK Name Value Range Interpretation Code Description Data Source(s) Body weight 226.4 [lb_av] 226.4 [lb_av] eCW1 ([facility]) Body weight 102.69 kg 102.69 kg eCW1 ([facility]) Body height [in_i] eCW1 ([facility]) Body mass index (BMI) [Ratio] 39.47 kg/m2 39.47 kg/m2 eCW1 (Pending Sale To [facility]) Heart rate 86 /min 86 /min eCW1 (Replaced by [facility]) Respiratory rate 18 /min 18 /min eCW1 ([facility]) Body temperature 97.8 [degF] 97.8 [degF] eCW1 ( Pending Sale To [facility]) Systolic blood pressure 124 mm[Hg] 124 mm[Hg] e CW1 (Pending Sale To [facility]) Diastolic blood pressure 78 mm[Hg] 78 mm[Hg] eCW1 (Pending Sale To [facility]) Body weight 227 [lb_av] 227 [lb_av] eCW1 ([facility]) Body weight 102.97 kg 102.97 kg eCW1 ([facility]) Body height [in_i] eCW1 ([facility]) Body mass index (BMI) [Ratio] 39.58 kg/m2 39.58 kg/m2 eCW1 (Pending Sale To [facility]) Heart rate 76 /min 76 /min eCW1 (Replaced by [facility]) Body temperature 97.6 [degF] 97.6 [degF] eCW1 ( [facility]ending Sale To [facility]) Systolic blood pressure 124 mm[Hg] 124 mm[Hg] e CW1 (Pending [facility] To [facility]) Diastolic blood pressure 74 mm[Hg] 74 mm[Hg] eCW1 (Pending Sale To [facility]) Body weight 226 [lb_av] 226 [lb_av] eCW1 ([facility]) Body height [in_i] eCW1 ([facility]) Body mass index (BMI) [Ratio] 39.40 kg/m2 39.40 kg/m2 eCW1 ([facility]ending [facility]) Heart rate 78 /min 78 /min eCW1 (Replaced by [facility]) Respiratory rate 20 /min 20 /min eCW1 ([facility]) Body temperature 98 [degF] 98 [degF] eCW1 ([facility]) Systolic blood pressure 122 mm[Hg] 122 mm[Hg] e CW1 (Pending [facility] To [facility]) Diastolic blood pressure 80 mm[Hg] 80 mm[Hg] eCW1 (Pending Sale To [facility]) Systolic blood pressure 124 mm[Hg] 124 mm[Hg] M EDENT ([facility], ) Diastolic blood pressure 80 mm[Hg] 80 mm[Hg] [facility] ([facility], ) Heart rate 79 /min 79 /min [facility] ([facility], ) Oxygen saturation in Arterial blood by Pulse oximetry 99 % 99 % [facility], ) Room Air Body height 64 [in_i] 64 [in_i] [facility] ([facility], ) 5'4" [place] body weight 120 [lb_av] 120 [lb_av] MEDEN T ([facility], ) Body height 0.00 in Normal (applies to non-numeric resu lts) 0.[address] [facility] ([facility]) Body weight Measured 0.00 lbs Normal (applies to n on-numeric results) 0.[address] [facility] ([facility]) Body mass index (BMI) [Ratio] 0.00 kg/m2 No rmal (applies to non-numeric results) 0.00 kg/m2 [facility] ([facility]) Systolic blood pressure 0 mm[Hg] Normal (applies t o non-numeric results) 0 mm[Hg] [facility] ([facility]) Diastolic blood pressure 0 mm[Hg] Normal (applies to non-numeric results) 0 mm[Hg] [facility] ([facility]) Body weight 229 [lb_av] 229 [lb_av] eCW1 ([facility]) Body height [in_i] eCW1 ([facility]) Body mass index (BMI) [Ratio] 39.92 kg/m2 39.92 kg/m2 eCW1 (Pending [facility]) Heart rate 80 /min 80 /min eCW1 (Replaced by [facility]) Respiratory rate 18 /min 18 /min eCW1 ([facility]) Body temperature 97.6 [degF] 97.6 [degF] eCW1 ( Pending Sale To [facility]) Systolic blood pressure 126 mm[Hg] 126 mm[Hg] e CW1 (Pending Sale To [facility]) Diastolic blood pressure 80 mm[Hg] 80 mm[Hg] eCW1 (Pending Sale To [facility]) Body height 63 [in_i] 63 [in_i] [facility] ([facility]) 5'3" Body temperature 97.7 [degF] 97.7 [degF] [facility] ([facility]) Body weight 225.38 [lb_av] 225.38 [lb_av] MEDEN T ([facility]) Body mass index (BMI) [Ratio] 39.9 kg/m2 39.9 k g/m2 [facility] ([facility]) Body temperature 96.0 [degF] 96.0 [degF] [facility] ([facility]) Body height 0.00 in Normal (applies to non-numeric resu lts) 0.[address] [facility] ([facility]) Body weight Measured 0.00 lbs Normal (applies to n on-numeric results) 0.[address] [facility] ([facility]) Body mass index (BMI) [Ratio] 0.00 kg/m2 No rmal (applies to non-numeric results) 0.00 kg/m2 [facility] ([facility]) Systolic blood pressure 0 mm[Hg] Normal (applies t o non-numeric results) 0 mm[Hg] [facility] ([facility]) Diastolic blood pressure 0 mm[Hg] Normal (applies to non-numeric results) 0 mm[Hg] [facility] ([facility]) Body height 0.00 in Normal (applies to non-numeric resu lts) 0.[address] [facility] ([facility]) Body weight Measured 0.00 lbs Normal (applies to n on-numeric results) 0.[address] [facility] ([facility]) Body mass index (BMI) [Ratio] 0.00 kg/m2 No rmal (applies to non-numeric results) 0.00 kg/m2 [facility] ([facility]) Systolic blood pressure 0 mm[Hg] Normal (applies t o non-numeric results) 0 mm[Hg] [facility] ([facility]) Diastolic blood pressure 0 mm[Hg] Normal (applies to non-numeric results) 0 mm[Hg] [facility] ([facility]) Body height 64 [in_i] 64 [in_i] [facility] ([facility], ) 5'4" Body weight 242.00 [lb_av] 242.00 [lb_av] [facility] T ([facility]) Body mass index (BMI) [Ratio] 41.5 kg/m2 41.5 k g/m2 [facility] ([facility]) [place] body weight 120 [lb_av] 120 [lb_av] MED[facility] T ([facility]) Body weight 109.771 kg 109.771 kg [facility] ([facility]) Body surface area Derived from formula 2.12 m2 2.12 m2 [facility] ([facility]) Body weight 240 [lb_av] 240 [lb_av] eCW1 ([facility]) Body height [in_i] eCW1 ([facility]) Body mass index (BMI) [Ratio] 41.84 kg/m2 41.84 kg/m2 eCW1 (Pending Sale To [facility]) Heart rate 90 /min 90 /min eCW1 (Replaced by [facility]) Respiratory rate 20 /min 20 /min eCW1 ([facility]) Body temperature 98.2 [degF] 98.2 [degF] eCW1 ( Pending Sale To [facility]) Systolic blood pressure 128 mm[Hg] 128 mm[Hg] e CW1 (Pending Sale To [facility]) Diastolic blood pressure 76 mm[Hg] 76 mm[Hg] eCW1 (Pending Sale To [facility]) Body weight 239.4 [lb_av] 239.4 [lb_av] eCW1 ([facility]) Body height [in_i] eCW1 ([facility]) Body mass index (BMI) [Ratio] 41.74 kg/m2 41.74 kg/m2 eCW1 (Pending Sale To [facility]) Systolic blood pressure 130 mm[Hg] 130 mm[Hg] e CW1 (Pending Sale To [facility]) Diastolic blood pressure 79 mm[Hg] 79 mm[Hg] eCW1 (Pending Sale To [facility]) Body weight 241 [lb_av] 241 [lb_av] eCW1 ([facility]) Body height [in_i] eCW1 ([facility]) Body mass index (BMI) [Ratio] 42.02 kg/m2 42.02 kg/m2 eCW1 (Pending Sale To [facility]) Systolic blood pressure 124 mm[Hg] 124 mm[Hg] e CW1 (Pending Sale To [facility]) Diastolic blood pressure 70 mm[Hg] 70 mm[Hg] eCW1 (Pending Sale To [facility]) Body height 0.00 in Normal (applies to non-numeric resu lts) 0.[address] [facility] ([facility]) Body weight Measured 0.00 lbs Normal (applies to n on-numeric results) 0.[address] [facility] ([facility]) Body mass index (BMI) [Ratio] 0.00 kg/m2 No rmal (applies to non-numeric results) 0.00 kg/m2 [facility] ([facility]) Systolic blood pressure 0 mm[Hg] Normal (applies t o non-numeric results) 0 mm[Hg] [facility] ([facility]) Diastolic blood pressure 0 mm[Hg] Normal (applies to non-numeric results) 0 mm[Hg] [facility] ([facility]) ID Date Data Source [id number] 06/24/2021 08:50:27 PM [facility] Name Value Range Interpretation Code Description Data Source(s) TRANSFER FROM [facility] ID Date Data Source [id number] 06/10/2020 09:13:13 AM [facility] Name Value Range Interpretation Code Description Data Source(s) WEIGHT RECORDED [address] [facility] Body height Measured 64.02 in 64.02 in [facility] Patient Treatment Plan of Care Planned Activity Planned Date Details Description Data Source (s) Triamcinolone Acetonide 0.001 MG/MG Topical Ointment 12:00:00 AM EDT eCW1 ([facility]) Triamcinolone Acetonide 0.001 MG/MG Topical Ointment 12:00:00 AM EDT eCW1 ([facility]) Fluocinonide 0.5 MG/ML Topical Solution 06/03/2021 12:00:00 AM EDT eCW1 ([facility]ending Sale To [facility]) Triamcinolone Acetonide 0.001 MG/MG Topical Ointment 12:00:00 AM EDT eCW1 ([facility]) Fluocinonide 0.5 MG/ML Topical Solution 06/03/2021 12:00:00 AM EDT eCW1 (Pending Sale To [facility]) Triamcinolone Acetonide 0.001 MG/MG Topical Ointment 12:00:00 AM EDT eCW1 ([facility]) Fluocinonide 0.5 MG/ML Topical Solution 06/03/2021 12:00:00 AM EDT eCW1 (Pending Sale To [facility]) Triamcinolone Acetonide 0.001 MG/MG Topical Ointment 12:00:00 AM EDT eCW1 ([facility]) Fluocinonide 0.5 MG/ML Topical Solution 06/03/2021 12:00:00 AM EDT eCW1 (Pending Sale To [facility]) Triamcinolone Acetonide 0.001 MG/MG Topical Ointment 12:00:00 AM EDT eCW1 ([facility]) Fluocinonide 0.5 MG/ML Topical Solution 06/03/2021 12:00:00 AM EDT eCW1 (Pending Sale To [facility]) Triamcinolone Acetonide 0.001 MG/MG Topical Ointment 12:00:00 AM EDT eCW1 ([facility]) Fluocinonide 0.5 MG/ML Topical Solution 06/03/2021 12:00:00 AM EDT eCW1 ([facility]ending Sale To [facility]) Amlodipine 5 MG Oral Tablet 05/17/2021 12:00:00 AM EDT eCW1 (Pending Sale To [facility]) Amlodipine 5 MG Oral Tablet 05/17/2021 12:00:00 AM EDT eCW1 (Pending Sale To [facility]) Amlodipine 5 MG Oral Tablet 05/17/2021 12:00:00 AM EDT eCW1 (Pending Sale To [facility]) Lidocaine Hydrochloride 20 MG/ML Mucous Membrane Topic al Solution 04/26/2021 12:00:00 AM EDT eCW1 ([facility]) Lidocaine Hydrochloride 20 MG/ML Mucous Membrane Topic al Solution 04/26/2021 12:00:00 AM EDT eCW1 ([facility]) Lidocaine Hydrochloride 20 MG/ML Mucous Membrane Topic al Solution 04/26/2021 12:00:00 AM EDT eCW1 ([facility]) Hydroxychloroquine Sulfate 200 MG Oral Tablet 02/18/2021 12:00:00 A M [facility] retapamulin 0.01 MG/MG Topical Ointment [Altabax] 10/08/2020 12: 00:00 AM EST eCW1 (Pending Sale To [facility]) Fluconazole 100 MG Oral Tablet [Diflucan] 10/08/2020 12:00:00 AM ES T eCW1 (Pending Sale To [facility]) retapamulin 0.01 MG/MG Topical Ointment [Altabax] 10/08/2020 12: 00:00 AM EST eCW1 (Pending Sale To [facility]) Fluconazole 100 MG Oral Tablet [Diflucan] 10/08/2020 12:00:00 AM ES T eCW1 (Pending Sale To [facility]) retapamulin 0.01 MG/MG Topical Ointment [Altabax] 10/08/2020 12: 00:00 AM EST eCW1 (Pending Sale To [facility]) Fluconazole 100 MG Oral Tablet [Diflucan] 10/08/2020 12:00:00 AM ES T eCW1 (Pending Sale To [facility]) retapamulin 0.01 MG/MG Topical Ointment [Altabax] 10/08/2020 12: 00:00 AM EST eCW1 (Pending Sale To [facility]) Fluconazole 100 MG Oral Tablet [Diflucan] 10/08/2020 12:00:00 AM ES T eCW1 (Pending Sale To [facility]) retapamulin 0.01 MG/MG Topical Ointment [Altabax] 10/08/2020 12: 00:00 AM EST eCW1 (Pending Sale To [facility]) retapamulin 0.01 MG/MG Topical Ointment [Altabax] 10/08/2020 12: 00:00 AM EST eCW1 (Pending Sale To [facility]) Fluconazole 100 MG Oral Tablet [Diflucan] 10/08/2020 12:00:00 AM ES T eCW1 (Pending Sale To [facility]) retapamulin 0.01 MG/MG Topical Ointment [Altabax] 10/08/2020 12: 00:00 AM EST eCW1 (Pending Sale To [facility]) Fluconazole 100 MG Oral Tablet [Diflucan] 10/08/2020 12:00:00 AM ES T eCW1 (Pending Sale To [facility]) Fluconazole 100 MG Oral Tablet [Diflucan] 10/08/2020 12:00:00 AM ES T eCW1 (Pending Sale To [facility]) retapamulin 0.01 MG/MG Topical Ointment [Altabax] 10/08/2020 12: 00:00 AM EST eCW1 (Pending Sale To [facility]) Fluconazole 100 MG Oral Tablet [Diflucan] 10/08/2020 12:00:00 AM ES T eCW1 (Pending Sale To [facility]) retapamulin 0.01 MG/MG Topical Ointment [Altabax] 10/08/2020 12: 00:00 AM EST eCW1 (Pending Sale To [facility]) Fluconazole 100 MG Oral Tablet [Diflucan] 10/08/2020 12:00:00 AM ES T eCW1 (Pending Sale To [facility]) retapamulin 0.01 MG/MG Topical Ointment [Altabax] 10/08/2020 12: 00:00 AM EST eCW1 (Pending Sale To [facility]) Fluconazole 100 MG Oral Tablet [Diflucan] 10/08/2020 12:00:00 AM ES T eCW1 (Pending Sale To [facility]) retapamulin 0.01 MG/MG Topical Ointment [Altabax] 10/08/2020 12: 00:00 AM EST eCW1 (Pending Sale To [facility]) Fluconazole 100 MG Oral Tablet [Diflucan] 10/08/2020 12:00:00 AM ES T eCW1 (Pending Sale To [facility]) Fluconazole 100 MG Oral Tablet [Diflucan] 10/08/2020 12:00:00 AM ES T eCW1 (Pending Sale To [facility]) retapamulin 0.01 MG/MG Topical Ointment [Altabax] 10/08/2020 12: 00:00 AM EST eCW1 (Pending Sale To [facility]) retapamulin 0.01 MG/MG Topical Ointment [Altabax] 10/08/2020 12: 00:00 AM EST eCW1 (Pending Sale To [facility]) Fluconazole 100 MG Oral Tablet [Diflucan] 10/08/2020 12:00:00 AM ES T eCW1 (Pending Sale To [facility]) retapamulin 0.01 MG/MG Topical Ointment [Altabax] 10/08/2020 12: 00:00 AM EST eCW1 (Pending Sale To [facility]) Fluconazole 100 MG Oral Tablet [Diflucan] 10/08/2020 12:00:00 AM ES T eCW1 (Pending Sale To [facility]) retapamulin 0.01 MG/MG Topical Ointment [Altabax] 10/08/2020 12: 00:00 AM EST eCW1 (Pending Sale To [facility]) Fluconazole 100 MG Oral Tablet [Diflucan] 10/08/2020 12:00:00 AM ES T eCW1 (Pending Sale To [facility]) retapamulin 0.01 MG/MG Topical Ointment [Altabax] 10/08/2020 12: 00:00 AM EST eCW1 (Pending Sale To [facility]) Fluconazole 100 MG Oral Tablet [Diflucan] 10/08/2020 12:00:00 AM ES T eCW1 (Pending Sale To [facility]) retapamulin 0.01 MG/MG Topical Ointment [Altabax] 10/08/2020 12: 00:00 AM EST eCW1 (Pending Sale To [facility]) Fluconazole 100 MG Oral Tablet [Diflucan] 10/08/2020 12:00:00 AM ES T eCW1 (Pending Sale To [facility]) retapamulin 0.01 MG/MG Topical Ointment [Altabax] 10/08/2020 12: 00:00 AM EST eCW1 (Pending Sale To [facility]) Fluconazole 100 MG Oral Tablet [Diflucan] 10/08/2020 12:00:00 AM ES T eCW1 (Pending Sale To [facility]) Rolling Walker 1 07/13/2020 12:00:00 AM EST eCW1 (Pending Sale To [facility]) Rolling Walker 1 07/13/2020 12:00:00 AM EST eCW1 (Pending Sale To [facility]) Rolling Walker 1 07/13/2020 12:00:00 AM EST eCW1 (Pending Sale To [facility]) Rolling Walker 1 07/13/2020 12:00:00 AM EST eCW1 (Pending Sale To [facility]) Rolling Walker 1 07/13/2020 12:00:00 AM EST eCW1 (Pending Sale To [facility]) Rolling Walker 1 07/13/2020 12:00:00 AM EST eCW1 (Pending Sale To [facility]) Hydroxychloroquine Sulfate 200 MG Oral Tablet 06/02/2020 12:00:00 [facility] Hydroxychloroquine Sulfate 200 MG Oral Tablet 03/26/2020 12:00:00 A [facility]
--- OUTSIDE RECORDS SUMMARY | 2021-07-12 15:33 | CCD ---
Author Author [facility] Organization [facility] Address Unknown Phone Unavailable Care Team Providers Care Grading Machine Operator Name Role Phone Estee, L Patsy TAKER OFF HEMP FIBER Unavailable Unavailable Estee, L Patsy TAKER OFF HEMP FIBER Unavailable Unavailable Estee, L Patsy TAKER OFF HEMP FIBER Unavailable Unavailable Estee, L Patsy TAKER OFF HEMP FIBER Unavailable Unavailable Estee, L Patsy TAKER OFF HEMP FIBER Unavailable Unavailable Estee, L Patsy TAKER OFF HEMP FIBER Unavailable Unavailable Estee, L Patsy TAKER OFF HEMP FIBER Unavailable Unavailable Estee, L Patsy TAKER OFF HEMP FIBER Unavailable Unavailable Estee, L Patsy TAKER OFF HEMP FIBER Unavailable Unavailable Estee, L Patsy TAKER OFF HEMP FIBER Unavailable Unavailable Estee, L Patsy TAKER OFF HEMP FIBER Unavailable Unavailable Estee, L Patsy TAKER OFF HEMP FIBER Unavailable Unavailable Estee, L Patsy TAKER OFF HEMP FIBER Unavailable Unavailable Estee, L Patsy TAKER OFF HEMP FIBER Unavailable Unavailable Estee, L Patsy TAKER OFF HEMP FIBER Unavailable Unavailable Estee, L Patsy TAKER OFF HEMP FIBER Unavailable Unavailable Estee, L Patsy TAKER OFF HEMP FIBER Unavailable Unavailable Estee, L Patsy TAKER OFF HEMP FIBER Unavailable Unavailable Estee, L Patsy TAKER OFF HEMP FIBER Unavailable Unavailable Estee, L Patsy TAKER OFF HEMP FIBER Unavailable Unavailable Estee, L Patsy TAKER OFF HEMP FIBER Unavailable Unavailable Estee, L Patsy TAKER OFF HEMP FIBER Unavailable Unavailable Estee, L Patsy TAKER OFF HEMP FIBER Unavailable Unavailable Estee, L Patsy TAKER OFF HEMP FIBER Unavailable Unavailable Estee, L Patsy TAKER OFF HEMP FIBER Unavailable Unavailable Frances Miller, PA-C Unavailable Unavailabl e Fish, Frances Florencia MPAS, PA-C Unavailable Unavailabl e Fish, [facility], PA-C Unavailable Unavailabl e Fish, [facility], PA-C Unavailable Unavailabl e Fish, [facility], PA-C Unavailable Unavailabl e Fish, [facility], PA-C Unavailable Unavailabl e Fish, [facility], PA-C Unavailable Unavailabl e Fish, [facility], PA-C Unavailable Unavailabl e Fish, [facility], PA-C Unavailable Unavailabl e Fish, [facility], PA-C Unavailable Unavailabl e Fish, [facility], PA-C Unavailable Unavailabl e Fish, [facility], PA-C Unavailable Unavailabl e Fish, [facility], PA-C Unavailable Unavailabl e Fish, [facility], PA-C Unavailable Unavailabl e Fish, [facility], PA-C Unavailable Unavailabl e Fish, [facility], PA-C Unavailable Unavailabl e Fish, [facility], PA-C Unavailable Unavailabl e Fish, [facility], PA-C Unavailable Unavailabl e Fish, [facility], PA-C Unavailable Unavailabl e Fish, [facility], PA-C Unavailable Unavailabl e Fish, [facility], PA-C Unavailable Unavailabl e Fish, [facility], PA-C Unavailable Unavailabl e Fish, [facility], PA-C Unavailable Unavailabl e Fish, [facility], PA-C Unavailable Unavailabl e Fish, [facility], PA-C Unavailable Unavailabl e Fish, [facility], PA-C Unavailable Unavailabl e Fish, [facility], PA-C Unavailable Unavailabl e Fish, [facility], PA-C Unavailable Unavailabl e Fish, [facility], PA-C Unavailable Unavailabl e Fish, [facility], PA-C Unavailable Unavailabl e Fish, [facility], PA-C Unavailable Unavailabl e Fish, [facility], PA-C Unavailable Unavailabl e Fish, [facility], PA-C Unavailable Unavailabl e Fish, Frances Don [facility], PA-C Unavailable Unavailabl e Fish, Frances Don [facility], PA-C Unavailable Unavailabl e Fish, Frances Don [facility], PA-C Unavailable Unavailabl e Robin Jessica Unavailable [...] Unavailable BRYSON, P CAIO MD Unavailable Unavailable BRSYON, P CAIO MD Unavailable Unavailable BRYSON, P [...] HASSAN MD Unavailable Unavailable Servage, L Zaina TAKER OFF HEMP FIBER Unavailable Unavailable Servage, L Zaina TAKER OFF HEMP FIBER Unavailable Unavailable Servage, L Zaina TAKER OFF HEMP FIBER Unavailable Unavailable Servage, L Zaina TAKER OFF HEMP FIBER Unavailable Unavailable Servage, L Zaina TAKER OFF HEMP FIBER Unavailable Unavailable Servage, L Zaina TAKER OFF HEMP FIBER Unavailable Unavailable Servage, L Zaina TAKER OFF HEMP FIBER Unavailable Unavailable Servage, L Zaina TAKER OFF HEMP FIBER Unavailable Unavailable Servage, L Zaina TAKER OFF HEMP FIBER Unavailable Unavailable Servage, L Zaina TAKER OFF HEMP FIBER Unavailable Unavailable Servage, L Zaina TAKER OFF HEMP FIBER Unavailable Unavailable Servage, L Zaina TAKER OFF HEMP FIBER Unavailable Unavailable Servage, L Zaina TAKER OFF HEMP FIBER Unavailable Unavailable Servage, L Zaina TAKER OFF HEMP FIBER Unavailable Unavailable Servage, L Zaina TAKER OFF HEMP FIBER Unavailable Unavailable Servage, L Zaina TAKER OFF HEMP FIBER Unavailable Unavailable Servage, L Zaina TAKER OFF HEMP FIBER Unavailable Unavailable Servage, L Zaina TAKER OFF HEMP FIBER Unavailable Unavailable Servage, L Zaina TAKER OFF HEMP FIBER Unavailable Unavailable Servage, L Zaina TAKER OFF HEMP FIBER Unavailable Unavailable Servage, L Zaina TAKER OFF HEMP FIBER Unavailable Unavailable Servage, L Zaina TAKER OFF HEMP FIBER Unavailable Unavailable Servage, L Zaina TAKER OFF HEMP FIBER Unavailable Unavailable Servage, L Zaina TAKER OFF HEMP FIBER Unavailable Unavailable Servage, L Zaina TAKER OFF HEMP FIBER Unavailable Unavailable Servage, L Zaina TAKER OFF HEMP FIBER Unavailable Unavailable Servage, L Zaina TAKER OFF HEMP FIBER Unavailable Unavailable Servage, L Zaina TAKER OFF HEMP FIBER Unavailable Unavailable Servage, L Zaina TAKER OFF HEMP FIBER Unavailable Unavailable Servage, L Zaina TAKER OFF HEMP FIBER Unavailable Unavailable Servage, L Zaina TAKER OFF HEMP FIBER Unavailable Unavailable Servage, L Zaina TAKER OFF HEMP FIBER Unavailable Unavailable Servage, L Zaina TAKER OFF HEMP FIBER Unavailable Unavailable Servage, L Zaina TAKER OFF HEMP FIBER Unavailable Unavailable Servage, L Zaina TAKER OFF HEMP FIBER Unavailable Unavailable Servage, L Zaina TAKER OFF HEMP FIBER Unavailable Unavailable Servage, L Zaina TAKER OFF HEMP FIBER Unavailable Unavailable Servage, L Zaina TAKER OFF HEMP FIBER Unavailable Unavailable Servage, L Zaina TAKER OFF HEMP FIBER Unavailable Unavailable Servage, L Zaina TAKER OFF HEMP FIBER Unavailable Unavailable Servage, L Zaina TAKER OFF HEMP FIBER Unavailable Unavailable Servage, L Zaina TAKER OFF HEMP FIBER Unavailable Unavailable Servage, L Zaina TAKER OFF HEMP FIBER Unavailable Unavailable Servage, L Zaina TAKER OFF HEMP FIBER Unavailable Unavailable Servage, L Zaina TAKER OFF HEMP FIBER Unavailable Unavailable Servage, L Zaina TAKER OFF HEMP FIBER Unavailable Unavailable Servage, L Zaina TAKER OFF HEMP FIBER Unavailable Unavailable Servage, L Zaina TAKER OFF HEMP FIBER Unavailable Unavailable Servage, L Zaina TAKER OFF HEMP FIBER Unavailable Unavailable Servage, L Zaina TAKER OFF HEMP FIBER Unavailable Unavailable Servage, L Zaina TAKER OFF HEMP FIBER Unavailable Unavailable Servage, L Zaina TAKER OFF HEMP FIBER Unavailable Unavailable Servage, L Zaina TAKER OFF HEMP FIBER Unavailable Unavailable Servage, L Zaina TAKER OFF HEMP FIBER Unavailable Unavailable Servage, L Zaina TAKER OFF HEMP FIBER Unavailable Unavailable Servage, L Zaina TAKER OFF HEMP FIBER Unavailable Unavailable Servage, L Zaina TAKER OFF HEMP FIBER Unavailable Unavailable Servage, L Zaina TAKER OFF HEMP FIBER Unavailable Unavailable Servage, L Zaina TAKER OFF HEMP FIBER Unavailable Unavailable Servage, L Zaina TAKER OFF HEMP FIBER Unavailable Unavailable Servage, L Zaina TAKER OFF HEMP FIBER Unavailable Unavailable Servage, L Zaina TAKER OFF HEMP FIBER Unavailable Unavailable Servage, L Zaina TAKER OFF HEMP FIBER Unavailable Unavailable Servage, L Zaina TAKER OFF HEMP FIBER Unavailable Unavailable Servage, L Zaina TAKER OFF HEMP FIBER Unavailable Unavailable HAYLEE BLANCA MD Unavailable Unavailable [...] E Kasandra DDS Unavailable Unavailable MACQUEEN, KEMI TAKER OFF HEMP FIBER Unavailable Unavailable MACQUEEN, KEMI TAKER OFF HEMP FIBER Unavailable Unavailable MACQUEEN, KEMI TAKER OFF HEMP FIBER Unavailable Unavailable MACQUEEN, KEMI TAKER OFF HEMP FIBER Unavailable Unavailable MACQUEEN, KEMI TAKER OFF HEMP FIBER Unavailable Unavailable MACQUEEN, KEMI TAKER OFF HEMP FIBER Unavailable Unavailable MACQUEEN, KMEI TAKER OFF HEMP FIBER Unavailable Unavailable MACQUEEN, KEMI TAKER OFF HEMP FIBER Unavailable Unavailable MACQUEEN, KEMI TAKER OFF HEMP FIBER Unavailable Unavailable MACQUEEN, KEMI TAKER OFF HEMP FIBER Unavailable Unavailable CABRERA, P DUSTIN Unavailable Unavailable [...] is protected by Article 27-F of the [facility] Public Health law. If you continue you may have access to information: Regarding HIV / AIDS; Provided by facilities licensed or operated by the [facility] Office of Mental Health; or Provided by the [facility] Office for People With Developmental Disabilities. If such information is present, then the following [facility] mandated warning applies: This information has been [...] law may result in a fine or chcf sentence or both. A general authorization for [...] Attender: CAIO MASSEY MD 09/06/2021 12:00:00 AM [facility] [place] [address] [facility] [place] [address] 07/06/2021 12:00:00 AM EST eCW1 ([facility]) Outpatient [address] [facility] [facility] [place] [address] 07/01/2021 12:00:00 AM EDT eCW1 ([facility]) Unknown [address] [facility] [address] 06/30/2021 12:00:00 AM EDT eCW1 ([facility]) Extended Individual Psychotherapy - 45 min Attender: Rianna Mckeon [facility] 06/29/2021 01:00:00 AM EDT - 06/29/2021 01:00:00 AM EDT [facility] ([facility]) Attender: Robin Jessica 06/29/2021 12:00:00 AM E DT [facility] ([facility]) Inpatient Attender: Dustin Banda er: DUSTIN CABRERAAttender: HAYLEE BLANCA MDAttender: MO CRESPO MDAdmitter: MO CRESPO MDReferrer: MO CRESPO MD [id number] 06/19/2021 12:00:00 AM EDT - 06/24/2021 12:42:00 PM T [facility] Patient discharged. Outpatient Attender: KEMI GREY NP [facility] [place] 06/16/2021 11:30:00 AM EDT - 06/16/2021 11:30:00 AM EDT [facility] ([facility]) [place] [address] [facility] [address] 06/16/2021 12:00:00 AM EDT eCW1 ([facility]) Unknown [address] [facility] [address] 06/16/2021 12:00:00 AM EDT eCW1 ([facility]) Attender: KEMI GREY NP 06/16/2021 12:00:00 AM EDT [facility] ([facility]) Unknown [address] [facility] [address] 06/15/2021 12:00:00 AM EDT eCW1 ([facility]) Extended Individual Psychotherapy - 45 min Attender: Michelle Ghosh [facility] [place] 06/11/2021 12:45:00 PM EDT - 06/11/2021 12:45:00 PM EDT [facility] ([facility]) Attender: Elizabeth Ghosh 06/11/2021 12:00:0 0 AM EDT [facility] ([facility]) [place] [address] [facility] [address] 06/07/2021 12:00:00 AM EDT eCW1 ([facility]) [place] [address] [facility] [address] 06/03/2021 12:00:00 AM EDT eCW1 ([facility]) Unknown [address] [facility] [address] 05/31/2021 12:00:00 AM EDT eCW1 ([facility]) Unknown [address] [facility] [address] 05/25/2021 12:00:00 AM EDT eCW1 ([facility]) Unknown [address] [facility] [address] 05/25/2021 12:00:00 AM EDT eCW1 ([facility]) Extended Individual Psychotherapy - 45 min Attender: Michelle Ghosh [facility] 05/20/2021 02:30:00 AM EDT - 05/20/2021 02:30:00 AM EDT [facility] ([facility]) Attender: Elizabeth Ghosh 05/20/2021 12:00:0 0 AM EDT [facility] ([facility]) Unknown [address] [facility] [address] 05/17/2021 12:00:00 AM EDT [facility] [place] [address] [facility] [address] 05/17/2021 12:00:00 AM EDT eCW1 ([facility]) Unknown [address] [facility] [address] 05/11/2021 12:00:00 AM EDT eCW1 ([facility] Attender: KEMI GREY NP 04/29/2021 12:00:00 AM EDT [facility] ([facility]) Outpatient Attender: KEMI GREY NP [facility] 04/28/2021 10:30:00 AM EDT - 04/28/2021 10:30:00 AM EDT [facility] ([facility]) Office Visit, Est Pt., Level 3 PC [address] [place] [address] 04/26/2021 12:00:00 AM EDT eCW1 ([facility]) Unknown [address] [facility], [facility] [address] 04/16/2021 12:00:00 AM EDT eCW1 ([facility]) Outpatient Attender: KEMI GREY NP [facility] 04/14/2021 10:30:00 AM EDT - 04/14/2021 10:30:00 AM EDT [facility] ([facility]) Attender: KEMI GREY NP 04/14/2021 12:00:00 AM EDT [facility] ([facility]) Unknown [address] [facility], [facility] [address] 04/14/2021 12:00:00 AM EDT eCW1 ([facility]) Extended Individual Psychotherapy - 45 min Attender: Michelle Ghosh [facility] 03/26/2021 01:00:00 AM EDT - 03/26/2021 01:00:00 AM EDT [facility] ([facility]) Attender: Elizabeth Ghosh 03/26/2021 12:00:0 0 AM EDT [facility] ([facility]) Unknown [address] [facility], [facility] [address] 03/18/2021 12:00:00 AM EDT eCW1 ([facility]) Office Visit, Est Pt., Level 2 FC [address] [place] [address] 03/10/2021 12:00:00 AM EDT eCW1 ([facility]) Outpatient Attender: CAIO MASSEY MD [id number] 12:00:00 AM EDT - 03/22/2021 10:36:27 AM EDT [facility] Unknown [address] [facility] [address] 03/05/2021 12:00:00 AM EDT eCW1 ([facility]) Outpatient Attender: Patsy Grayson/Ramón/Benton/Reinvalente 03/03/2021 11:00:00 AM EDT [facility] ([facility] Unknown [address] [facility] [address] 01/06/2021 12:00:00 AM EDT eCW1 ([facility]) Office Visit Attender: Florencia HARRISON PA-C Physical Therapy 12/30/2020 09:15:00 AM EDT [facility] ([facility]) Unknown [address] [facility] [address] 12/28/2020 12:00:00 AM EDT eCW1 ([facility]) Outpatient Attender: KEMI GREY NP [facility] 12/23/2020 11:30:00 AM EDT - 12/23/2020 11:30:00 AM EDT [facility] ([facility]) Attender: KEMI GREY NP 12/23/2020 12:00:00 AM EDT [facility] ([facility]) Extended Individual Psychotherapy - 45 min Attender: Michelle Ghosh [facility] 12/21/2020 02:00:00 AM EDT - 12/21/2020 02:00:00 AM EDT [facility] ([facility]) Attender: Elizabeth Ghosh 12/21/2020 12:00:0 0 AM EDT [facility] ([facility]) Office Visit Attender: Florencia HARRISON PA-C Physical Therapy 12/18/2020 01:00:00 PM EDT [facility] ([facility]) Outpatient Attender: Carlos Miller MD Physical Therapy 12/14/2020 0 1:45:00 PM EDT [facility] ([facility]) Unknown [address] [facility] [address] 12/08/2020 12:00:00 AM EDT eCW1 ([facility]) Unknown [address] [facility] [address] 12/07/2020 12:00:00 AM EDT eCW1 ([facility]) Unknown [address] [facility] [address] 12/04/2020 12:00:00 AM EDT eCW1 ([facility]) Outpatient Attender: CAIO YEEeferrer: Zaina Hernández TAKER OFF HEMP FIBER [id number] 11/30/2020 12:00:00 AM EDT - 11/30/2020 02:32:53 PM EDT [facility] Extended Individual Psychotherapy - 45 min [facility] 11/27/2020 02:30:00 AM EDT - 11/27/2020 02:30:00 AM EDT [facility] ([facility]) Attender: Elizabeth Ghosh 11/27/2020 12:00:0 0 AM EDT [facility] ([facility]) Extended Individual Psychotherapy - 45 min Attender: Michelle kendall [facility] 11/10/2020 02:00:00 AM EDT - 11/10/2020 02:00:00 AM EDT [facility] ([facility]) Unknown [address] [facility] [address] 11/10/2020 12:00:00 AM EDT eCW1 ([facility]) Attender: Elizabeth Ghosh 11/10/2020 12:00:0 0 AM EDT [facility] ([facility]) Unknown [address] [facility] [address] 11/09/2020 12:00:00 AM EDT eCW1 ([facility]) Unknown [address] [facility] [address] 11/09/2020 12:00:00 AM EDT eCW1 ([facility]) Unknown [address] [facility] [address] 11/04/2020 12:00:00 AM EST eCW1 ([facility]) [id number]"Psychotherapy Attender: Elizabeth Ghosh [facility] 10/23/2020 01:00:00 AM EST - 10/23/2020 01:00:00 AM EST [facility] ([facility]) Attender: Elizabeth Ghosh 10/23/2020 12:00:0 0 AM EST [facility] ([facility]) Unknown [address] [facility] [address] 10/19/2020 12:00:00 AM EST eCW1 ([facility]) Unknown [address] [facility] [place] [address] 10/14/2020 12:00:00 AM EST eCW1 ([facility]) Unknown [address] [facility] [address] 10/12/2020 12:00:00 AM EST eCW1 ([facility]) Unknown [address] [facility] [address] 10/09/2020 12:00:00 AM EST eCW1 ([facility]) Unknown [address] [facility] [address] 10/09/2020 12:00:00 AM EST eCW1 ([facility]) Office Visit, Est Pt., Level 4 PC [address] [place] [address] 10/08/2020 12:00:00 AM EST eCW1 ([facility]) Extended Individual Psychotherapy - 45 min Attender: Michelle Ghosh [facility] 10/05/2020 03:45:00 AM EST - 10/05/2020 03:45:00 AM EST [facility] ([facility]) Attender: Elizabeth Ghosh 10/05/2020 12:00:0 0 AM EST [facility] ([facility]) Unknown [address] [facility] [address] 09/29/2020 12:00:00 AM EST eCW1 ([facility]) Outpatient Attender: KEMI GREY NP [facility] 09/16/2020 11:00:00 AM EST - 09/16/2020 11:00:00 AM EST [facility] ([facility]) Unknown [address] [facility] [address] 09/16/2020 12:00:00 AM EST eCW1 ([facility]) Attender: KEMI GREY NP 09/16/2020 12:00:00 AM EST [facility] ([facility]) Unknown [address] [facility] [address] 09/11/2020 12:00:00 AM EST eCW1 ([facility]) Unknown [address] [facility] [address] 09/02/2020 12:00:00 AM EST eCW1 ([facility]) Extended Individual Psychotherapy - 45 min Attender: Michelle Ghosh [facility] 08/27/2020 02:00:00 AM EST - 08/27/2020 02:00:00 AM EST [facility] ([facility]) Attender: Elizabeth Ghosh 08/27/2020 12:00:0 0 AM EST [facility] ([facility]) Unknown [address] [facility] [address] 08/10/2020 12:00:00 AM EST eCW1 ([facility]) Extended Individual Psychotherapy - 45 min Attender: Michelle Ghosh [facility] 08/07/2020 01:00:00 AM EST - 08/07/2020 01:00:00 AM EST [facility] ([facility]) Attender: Elizabeth Ghosh 08/07/2020 12:00:0 0 AM EST [facility] ([facility]) Outpatient Attender: KEMI GREY NP [facility] Joe corrales 08/05/2020 11:00:00 AM EST - 08/05/2020 11:00:00 AM EST [facility] ([facility]) Attender: KEMI GREY NP 08/05/2020 12:00:00 AM EST [facility] ([facility]) Unknown [address] [facility] [address] 07/20/2020 12:00:00 AM EST eCW1 ([facility]) Unknown [address] [facility] [address] 07/08/2020 12:00:00 AM EST eCW1 ([facility]) Unknown [address] [facility] [address] 07/03/2020 12:00:00 AM EST eCW1 ([facility]) Unknown [address] [facility] [address] 07/01/2020 12:00:00 AM EST eCW1 ([facility]) [id number]" Psychotherapy Attender: Elizabeth trammell [facility] 06/29/2020 01:50:00 AM EST - 06/29/2020 01:50:00 AM EST [facility] ([facility]) Attender: Elizabeth Ghosh 06/29/2020 12:00:0 0 AM EST [facility] ([facility]) Extended Individual Psychotherapy - 45 min Attender: Michelle Ghosh [facility] 06/26/2020 01:00:00 AM EDT - 06/26/2020 01:00:00 AM EDT [facility] ([facility]) Attender: Elizabeth Ghosh 06/26/2020 12:00:0 0 AM EDT [facility] ([facility]) Unknown [address] [facility] [address] 06/23/2020 12:00:00 AM EDT eCW1 ([facility]) Outpatient [address] [facility] [address] 06/16/2020 12:00:00 AM EDT eCW1 ([facility]) Outpatient [address] [facility], [facility] [address] 06/15/2020 12:00:00 AM EDT eCW1 ([facility]) Extended Individual Psychotherapy - 45 min Attender: Michelleaydin Ghosh [facility] 06/09/2020 02:45:00 AM EDT - 06/09/2020 02:45:00 AM EDT [facility] ([facility]) Attender: Elizabeth Ghosh 06/09/2020 12:00:0 0 AM EDT [facility] ([facility]) Office Visit, Est Pt., Level 3 PC [address] [place] [address] 06/08/2020 12:00:00 AM EDT eCW1 ([facility]) Outpatient Attender: CAIO MASSEY MDReferrer: Zaina Hernández TAKER OFF HEMP FIBER [id number] 06/02/2020 12:00:00 AM EDT - 06/02/2020 12:27:43 PM EDT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 Extended Individual Psychotherapy - 45 min Attender: Michelle Ghosh [facility] 05/26/2020 02:30:00 AM EDT - 05/26/2020 02:30:00 AM EDT [facility] ([facility]) Attender: Elizabeth Ghosh 05/26/2020 12:00:0 0 AM EDT [facility] ([facility]) Outpatient Attender: KEMI GREY NP [facility] corrales 05/21/2020 10:00:00 AM EDT - 05/21/2020 10:00:00 AM EDT [facility] ([facility]) Attender: KEMI GREY NP 05/21/2020 12:00:00 AM EDT [facility] ([facility]) Office Visit Attender: Florencia HARRISON PA-C Physical Therapy 05/14/2020 08:30:00 AM EDT [facility] ([facility]) Outpatient Attender: Kasandra Bull DDS [facility] 05/14/2020 07:14:01 A M EDT [facility] Outpatient Attender: Kasandra Bull DDS [facility] 05/13/2020 10:11:00 A M EDT [facility] Outpatient Attender: Kasandra Bull DDS [facility] 05/13/2020 08:40:00 A M EDT [facility] Outpatient Attender: Kasandra Bull DDS [facility] 05/12/2020 03:58:00 P M EDT [facility] Functional Status Immunizations Vaccine Date Status Description Data Source(s) IIV3. This is one of two codes replacing CVX 15, which is being retired. 04/29/2021 03:13:00 PM EDT completed eCW1 ([facility]) IIV3. This is one of two codes replacing CVX 15, which is being retired. 04/29/2021 03:13:00 PM EDT completed eCW1 ([facility]) IIV3. This is one of two codes replacing CVX 15, which is being retired. 04/29/2021 03:13:00 PM EDT completed eCW1 ([facility]) IIV3. This is one of two codes replacing CVX 15, which is being retired. 04/29/2021 03:13:00 PM EDT completed eCW1 ([facility]) influenza, recombinant, quadrIvalent,injectable, prese rvative free 06/16/2020 03:29:00 PM EDT completed eCW1 ([facility]) influenza, recombinant, quadrIvalent,injectable, prese rvative free 06/16/2020 03:29:00 PM EDT completed eCW1 ([facility]) influenza, recombinant, quadrIvalent,injectable, prese rvative free 06/16/2020 03:29:00 PM EDT completed eCW1 ([facility]) influenza, recombinant, quadrIvalent,injectable, prese rvative free 06/16/2020 03:29:00 PM EDT completed eCW1 ([facility]) influenza, recombinant, quadrIvalent,injectable, prese rvative free 06/16/2020 03:29:00 PM EDT completed eCW1 ([facility]) influenza, recombinant, quadrIvalent,injectable, prese rvative free 06/16/2020 03:29:00 PM EDT completed eCW1 ([facility]) influenza, recombinant, quadrIvalent,injectable, prese rvative free 06/16/2020 03:29:00 PM EDT completed eCW1 ([facility]) influenza, recombinant, quadrIvalent,injectable, prese rvative free 06/16/2020 03:29:00 PM EDT completed eCW1 ([facility]) influenza, recombinant, quadrIvalent,injectable, prese rvative free 06/16/2020 03:29:00 PM EDT completed eCW1 ([facility]) influenza, recombinant, quadrIvalent,injectable, prese rvative free 06/16/2020 03:29:00 PM EDT completed eCW1 ([facility]) influenza, recombinant, quadrIvalent,injectable, prese rvative free 06/16/2020 03:29:00 PM EDT completed eCW1 ([facility]) influenza, recombinant, quadrIvalent,injectable, prese rvative free 06/16/2020 03:29:00 PM EDT completed eCW1 ([facility]) influenza, recombinant, quadrIvalent,injectable, prese rvative free 06/16/2020 03:29:00 PM EDT completed eCW1 ([facility]) influenza, recombinant, quadrIvalent,injectable, prese rvative free 06/16/2020 03:29:00 PM EDT completed eCW1 ([facility]) influenza, recombinant, quadrIvalent,injectable, prese rvative free 06/16/2020 03:29:00 PM EDT completed eCW1 ([facility]) influenza, recombinant, quadrIvalent,injectable, prese rvative free 06/16/2020 03:29:00 PM EDT completed eCW1 ([facility]) influenza, recombinant, quadrIvalent,injectable, prese rvative free 06/16/2020 03:29:00 PM EDT completed eCW1 ([facility]) influenza, recombinant, quadrIvalent,injectable, prese rvative free 06/16/2020 03:29:00 PM EDT completed eCW1 ([facility]) influenza, recombinant, quadrIvalent,injectable, prese rvative free 06/16/2020 03:29:00 PM EDT completed eCW1 ([facility]) influenza, recombinant, quadrIvalent,injectable, prese rvative free 06/16/2020 03:29:00 PM EDT completed eCW1 ([facility]) influenza, recombinant, quadrIvalent,injectable, prese rvative free 06/16/2020 03:29:00 PM EDT completed eCW1 ([facility]) influenza, recombinant, quadrIvalent,injectable, prese rvative free 06/16/2020 03:29:00 PM EDT completed eCW1 ([facility]) influenza, recombinant, quadrIvalent,injectable, prese rvative free 06/16/2020 03:29:00 PM EDT completed eCW1 ([facility]) influenza, recombinant, quadrIvalent,injectable, prese rvative free 06/16/2020 03:29:00 PM EDT completed eCW1 ([facility]) influenza, recombinant, quadrIvalent,injectable, prese rvative free 06/16/2020 03:29:00 PM EDT completed eCW1 ([facility]) influenza, recombinant, quadrIvalent,injectable, prese rvative free 06/16/2020 03:29:00 PM EDT completed eCW1 ([facility]) influenza, recombinant, quadrIvalent,injectable, prese rvative free 06/16/2020 03:29:00 PM EDT completed eCW1 ([facility]) influenza, recombinant, quadrIvalent,injectable, prese rvative free 06/16/2020 03:29:00 PM EDT completed eCW1 ([facility]) influenza, recombinant, quadrIvalent,injectable, prese rvative free 06/16/2020 03:29:00 PM EDT completed eCW1 ([facility]) influenza, recombinant, quadrIvalent,injectable, prese rvative free 06/16/2020 03:29:00 PM EDT completed eCW1 ([facility]) influenza, recombinant, quadrIvalent,injectable, prese rvative free 06/16/2020 03:29:00 PM EDT completed eCW1 ([facility]) influenza, recombinant, quadrIvalent,injectable, prese rvative free 06/16/2020 03:29:00 PM EDT completed eCW1 ([facility]) influenza, recombinant, quadrIvalent,injectable, prese rvative free 06/16/2020 03:29:00 PM EDT completed eCW1 ([facility]) influenza, recombinant, quadrIvalent,injectable, prese rvative free 06/16/2020 03:29:00 PM EDT completed eCW1 ([facility]) influenza, recombinant, quadrIvalent,injectable, prese rvative free 06/16/2020 03:29:00 PM EDT completed eCW1 ([facility]) influenza, recombinant, quadrIvalent,injectable, prese rvative free 06/16/2020 03:29:00 PM EDT completed eCW1 ([facility]) influenza, recombinant, quadrIvalent,injectable, prese rvative free 06/16/2020 03:29:00 PM EDT completed eCW1 ([facility]) influenza, recombinant, quadrIvalent,injectable, prese rvative free 06/16/2020 03:29:00 PM EDT completed eCW1 ([facility]) influenza, recombinant, quadrIvalent,injectable, prese rvative free 06/16/2020 03:29:00 PM EDT completed eCW1 ([facility]) influenza, recombinant, quadrIvalent,injectable, prese rvative free 06/16/2020 03:29:00 PM EDT completed eCW1 ([facility]) influenza, recombinant, quadrIvalent,injectable, prese rvative free 06/16/2020 03:29:00 PM EDT completed eCW1 ([facility]) influenza, recombinant, quadrIvalent,injectable, prese rvative free 06/16/2020 03:29:00 PM EDT completed eCW1 ([facility]) influenza, recombinant, quadrIvalent,injectable, prese rvative free 06/16/2020 03:29:00 PM EDT completed eCW1 ([facility]) influenza, recombinant, quadrIvalent,injectable, prese rvative free 06/16/2020 03:29:00 PM EDT completed eCW1 ([facility]) influenza, recombinant, quadrIvalent,injectable, prese rvative free 06/16/2020 03:29:00 PM EDT completed eCW1 ([facility]) influenza, recombinant, quadrIvalent,injectable, prese rvative free 06/16/2020 03:29:00 PM EDT completed eCW1 ([facility]) influenza, recombinant, quadrIvalent,injectable, prese rvative free 06/16/2020 03:29:00 PM EDT completed eCW1 ([facility]) influenza, recombinant, quadrIvalent,injectable, prese rvative free 06/16/2020 03:29:00 PM EDT completed eCW1 ([facility]) Medications Medication Brand Name Start Date Product Form Dose Route Admi nistrative Instructions Pharmacy Instructions Status Indications Reaction Description Data Source(s) Fluocinonide 0.5 MG/ML Topical Solution Fluocinonide 0.05 % Fluocinonide 0.05 % 06/03/2021 12:00:00 AM EDT 1.0 {application} act felecia Fluocinonide 0.05 % eCW1 ([facility]) Triamcinolone Acetonide 0.001 MG/MG Topi jimmy Ointment Triamcinolone Acetonide 0.1 % Triamcinolone Acetonide 0.1 % 06/03/2021 12:00:00 AM EDT 1.0 {application} active Triamcinolone Aceton damon 0.1 % eCW1 ([facility]) Fluocinonide 0.5 MG/ML Topical Solution Fluocinonide 0.05 % Fluocinonide 0.05 % 06/03/2021 12:00:00 AM EDT 1.0 {application} act felecia Fluocinonide 0.05 % eCW1 ([facility]) Fluocinonide 0.5 MG/ML Topical Solution Fluocinonide 0.05 % Fluocinonide 0.05 % 06/03/2021 12:00:00 AM EDT 1.0 {application} act felecia Fluocinonide 0.05 % eCW1 ([facility]) Fluocinonide 0.5 MG/ML Topical Solution Fluocinonide 0.05 % Fluocinonide 0.05 % 06/03/2021 12:00:00 AM EDT 1.0 {application} act felecia Fluocinonide 0.05 % eCW1 ([facility]) Triamcinolone Acetonide 0.001 MG/MG Topi jimmy Ointment Triamcinolone Acetonide 0.1 % Triamcinolone Acetonide 0.1 % 06/03/2021 12:00:00 AM EDT 1.0 {application} active Triamcinolone Aceton damon 0.1 % eCW1 ([facility]) Fluocinonide 0.5 MG/ML Topical Solution Fluocinonide 0.05 % Fluocinonide 0.05 % 06/03/2021 12:00:00 AM EDT 1.0 {application} act felecia Fluocinonide 0.05 % eCW1 ([facility]) Fluocinonide 0.5 MG/ML Topical Solution Fluocinonide 0.05 % Fluocinonide 0.05 % 06/03/2021 12:00:00 AM EDT 1.0 {application} act felecia Fluocinonide 0.05 % eCW1 ([facility]) Triamcinolone Acetonide 0.001 MG/MG Topi jimmy Ointment Triamcinolone Acetonide 0.1 % Triamcinolone Acetonide 0.1 % 06/03/2021 12:00:00 AM EDT 1.0 {application} active Triamcinolone Aceton damon 0.1 % eCW1 ([facility]) Triamcinolone Acetonide 0.001 MG/MG Topi jimmy Ointment Triamcinolone Acetonide 0.1 % Triamcinolone Acetonide 0.1 % 06/03/2021 12:00:00 AM EDT 1.0 {application} active Triamcinolone Aceton damon 0.1 % eCW1 ([facility]) Triamcinolone Acetonide 0.001 MG/MG Topi jimmy Ointment Triamcinolone Acetonide 0.1 % Triamcinolone Acetonide 0.1 % 06/03/2021 12:00:00 AM EDT 1.0 {application} active Triamcinolone Aceton damon 0.1 % eCW1 ([facility]) Triamcinolone Acetonide 0.001 MG/MG Topi jimmy Ointment Triamcinolone Acetonide 0.1 % Triamcinolone Acetonide 0.1 % 06/03/2021 12:00:00 AM EDT 1.0 {application} active Triamcinolone Aceton damon 0.1 % eCW1 ([facility]) Fluocinonide 0.5 MG/ML Topical Solution Fluocinonide 0.05 % Fluocinonide 0.05 % 06/03/2021 12:00:00 AM EDT 1.0 {application} act felecia Fluocinonide 0.05 % eCW1 ([facility]) Triamcinolone Acetonide 0.001 MG/MG Topi jimmy Ointment Triamcinolone Acetonide 0.1 % Triamcinolone Acetonide 0.1 % 06/03/2021 12:00:00 AM EDT 1.0 {application} active Triamcinolone Aceton damon 0.1 % eCW1 ([facility]) Fluocinonide 0.5 MG/ML Topical Solution Fluocinonide 0.05 % Fluocinonide 0.05 % 06/03/2021 12:00:00 AM EDT 1.0 {application} act felecia Fluocinonide 0.05 % eCW1 ([facility]) Fluocinonide 0.5 MG/ML Topical Solution Fluocinonide 0.05 % Fluocinonide 0.05 % 06/03/2021 12:00:00 AM EDT 1.0 {application} act felecia Fluocinonide 0.05 % eCW1 ([facility]) Triamcinolone Acetonide 0.001 MG/MG Topi jimmy Ointment Triamcinolone Acetonide 0.1 % Triamcinolone Acetonide 0.1 % 06/03/2021 12:00:00 AM EDT 1.0 {application} active Triamcinolone Aceton damon 0.1 % eCW1 ([facility]) Triamcinolone Acetonide 0.001 MG/MG Topi jimmy Ointment Triamcinolone Acetonide 0.1 % Triamcinolone Acetonide 0.1 % 06/03/2021 12:00:00 AM EDT 1.0 {application} active Triamcinolone Aceton damon 0.1 % eCW1 ([facility]) Triamcinolone Acetonide 0.001 MG/MG Topi jimmy Ointment Triamcinolone Acetonide 0.1 % Triamcinolone Acetonide 0.1 % 06/03/2021 12:00:00 AM EDT 1.0 {application} active Triamcinolone Aceton damon 0.1 % eCW1 ([facility]) Fluocinonide 0.5 MG/ML Topical Solution Fluocinonide 0.05 % Fluocinonide 0.05 % 06/03/2021 12:00:00 AM EDT 1.0 {application} act felecia Fluocinonide 0.05 % eCW1 ([facility]) Amlodipine 5 MG Oral Tablet Amlodipine Besylate 5 MG Amlodip ine Besylate 5 MG 05/17/2021 12:00:00 AM EDT 1.0 {tablet} active Amlodipine Besylate 5 MG eCW1 ([facility]) Amlodipine 5 MG Oral Tablet Amlodipine Besylate 5 MG Amlodip ine Besylate 5 MG 05/17/2021 12:00:00 AM EDT 1.0 {tablet} active Amlodipine Besylate 5 MG eCW1 ([facility]) Amlodipine 5 MG Oral Tablet Amlodipine Besylate 5 MG Amlodip ine Besylate 5 MG 05/17/2021 12:00:00 AM EDT 1.0 {tablet} active Amlodipine Besylate 5 MG eCW1 ([facility]) 24 HR quetiapine 200 MG Extended Release Oral Tablet quetiap ine 05/13/2021 12:00:00 AM EDT 200 mg by mouth completed <td ID="MedicationRxNorm_2">808357</td><td ID="MedicationMedication_2">quetiapine</td><td ID="MedicationRoute_2">by mouth</td><td ID="MedicationRouteConcept_2">P39728</td><td ID="MedicationStartDate_2">05/13/2021</td><td ID="MedicationStopDate_2">08/11/2021</td><td ID="MedicationDosageFrequency_2">at bedtime</td><td ID="MedicationDuration_2">30</td><td ID="MedicationFormulaStrength_2">200 mg</td><td ID="MedicationDosageForm_2">tablet extended release 24 hr</td><td ID="MedicationDosageFormCode_2"></td><td ID="MedicationDosageDescription_2"></td><td ID="MedicationMedicationId_2">[id number]</td><td ID="MedicationAccount_2">[id number]</td><td ID="MedicationNpid_2">[id number]</td><td ID="MedicationAuthorFirstName_2">Kemi</td><td ID="MedicationAuthorLastName_2">MacQueen</td><td ID="MedicationTaxonomyCode_2">[id number]</td><td ID="MedicationTaxonomyDesc_2"> Psychiatric/Mental Health</td><td ID="MedicationPhoneNumber_2">[phone]</td> [facility] ([facility]) quetiapine 50 MG Oral Tablet quetiapine 05/13/2021 12:00:00 AM EDT 50 mg by mouth completed <td ID="Medica tionRxNorm_5">706566</td><td ID="MedicationMedication_5">quetiapine</td><td ID="MedicationRoute_5">by mouth</td><td ID="MedicationRouteConcept_5">I78437</td><td ID="MedicationStartDate_5">05/13/2021</td><td ID="MedicationStopDate_5">08/11/2021</td><td ID="MedicationDosageFrequency_5">twice a day</td><td ID="MedicationDuration_5">30</td><td ID="MedicationFormulaStrength_5">50 mg</td><td ID="MedicationDosageForm_5">tablet</td><td ID="MedicationDosageFormCode_5"></td><td ID="MedicationDosageDescription_5"></td><td ID="MedicationMedicationId_5">[id number]</td><td ID="MedicationAccount_5">[id number]</td><td ID="MedicationNpid_5">[id number]</td><td ID="MedicationAuthorFirstName_5">Kemi</td><td ID="MedicationAuthorLastName_5">MacQueen</td><td ID="MedicationTaxonomyCode_5">[id number]</td><td ID="MedicationTaxonomyDesc_5">Psychiatric/Mental Health</td><td ID="MedicationPhoneNumber_5">[phone]</td> [facility] ([facility]) 24 HR quetiapine 200 MG Extended Release Oral Tablet quetiap ine 05/13/2021 12:00:00 AM EDT 200 mg by mouth completed <td ID="MedicationRxNorm_4">[id number]</td><td ID="MedicationMedication_4">quetiapine</td><td ID="MedicationRoute_4">by mouth</td><td ID="MedicationRouteConcept_4">C21123</td><td ID="MedicationStartDate_4">05/13/2021</td><td ID="MedicationStopDate_4">08/11/2021</td><td ID="MedicationDosageFrequency_4">at bedtime</td><td ID="MedicationDuration_4">30</td><td ID="MedicationFormulaStrength_4">200 mg</td><td ID="MedicationDosageForm_4">tablet extended release 24 hr</td><td ID="MedicationDosageFormCode_4"></td><td ID="MedicationDosageDescription_4"></td><td ID="MedicationMedicationId_4">[id number]</td><td ID="MedicationAccount_4">[id number]</td><td ID="MedicationNpid_4">[id number]</td><td ID="MedicationAuthorFirstName_4">Kemi</td><td ID="MedicationAuthorLastName_4">MacQueen</td><td ID="MedicationTaxonomyCode_4">[id number]</td><td ID="MedicationTaxonomyDesc_4"> Psychiatric/Mental Health</td><td ID="MedicationPhoneNumber_4">[phone]</td> [facility] ([facility]) quetiapine 50 MG Oral Tablet quetiapine 05/13/2021 12:00:00 AM EDT 50 mg by mouth completed <td ID="Medica tionRxNorm_3">271915</td><td ID="MedicationMedication_3">quetiapine</td><td ID="MedicationRoute_3">by mouth</td><td ID="MedicationRouteConcept_3">L81567</td><td ID="MedicationStartDate_3">05/13/2021</td><td ID="MedicationStopDate_3">08/11/2021</td><td ID="MedicationDosageFrequency_3">twice a day</td><td ID="MedicationDuration_3">30</td><td ID="MedicationFormulaStrength_3">50 mg</td><td ID="MedicationDosageForm_3">tablet</td><td ID="MedicationDosageFormCode_3"></td><td ID="MedicationDosageDescription_3"></td><td ID="MedicationMedicationId_3">[id number]</td><td ID="MedicationAccount_3">[id number]</td><td ID="MedicationNpid_3">[id number]</td><td ID="MedicationAuthorFirstName_3">Kemi</td><td ID="MedicationAuthorLastName_3">MacQueen</td><td ID="MedicationTaxonomyCode_3">[id number]</td><td ID="MedicationTaxonomyDesc_3">Psychiatric/Mental Health</td><td ID="MedicationPhoneNumber_3">[phone]</td> [facility] ([facility]) Mulga Carbonate 300 MG Oral Tablet lithium carbonate 12:00:00 AM EDT 300 mg by mouth completed <td ID="MedicationRxNorm_4">406721</td><td ID="MedicationMedication_4">lithium carbonate</td><td ID="MedicationRoute_4">by mouth</td><td ID="MedicationRouteConcept_4">I83238</td><td ID="MedicationStartDate_4">05/13/2021</td><td ID="MedicationStopDate_4">07/12/2021</td><td ID="MedicationDosageFrequency_4">once a day</td><td ID="MedicationDuration_4">30</td><td ID="MedicationFormulaStrength_4">300 mg</td><td ID="MedicationDosageForm_4">tablet</td><td ID="MedicationDosageFormCode_4"></td><td ID="MedicationDosageDescription_4"></td><td ID="MedicationMedicationId_4">[id number]</td><td ID="MedicationAccount_4">[id number]</td><td ID="MedicationNpid_4">[id number]</td><td ID="MedicationAuthorFirstName_4">Kemi</td><td ID="MedicationAuthorLastName_4">MacQueen</td><td ID="MedicationTaxonomyCode_4">[id number]</td><td ID="MedicationTaxonomyDesc_4">Psychiatric/Mental Health</td><td ID="MedicationPhoneNumber_4">[phone]</td> [facility] ([facility]) Mulga Carbonate 300 MG Oral Tablet lithium carbonate 12:00:00 AM EDT 300 mg by mouth completed <td ID="MedicationRxNorm_5">093946</td><td ID="MedicationMedication_5">lithium carbonate</td><td ID="MedicationRoute_5">by mouth</td><td ID="MedicationRouteConcept_5">C09341</td><td ID="MedicationStartDate_5">05/13/2021</td><td ID="MedicationStopDate_5">09/14/2021</td><td ID="MedicationDosageFrequency_5">once a day</td><td ID="MedicationDuration_5">30</td><td ID="MedicationFormulaStrength_5">300 mg</td><td ID="MedicationDosageForm_5">tablet</td><td ID="MedicationDosageFormCode_5"></td><td ID="MedicationDosageDescription_5"></td><td ID="MedicationMedicationId_5">[id number]</td><td ID="MedicationAccount_5">[id number]</td><td ID="MedicationNpid_5">[id number]</td><td ID="MedicationAuthorFirstName_5">Kemi</td><td ID="MedicationAuthorLastName_5">MacQueen</td><td ID="MedicationTaxonomyCode_5">[id number]</td><td ID="MedicationTaxonomyDesc_5">Psychiatric/Mental Health</td><td ID="MedicationPhoneNumber_5">[phone]</td> [facility] ([facility]) Mulga Carbonate 300 MG Oral Tablet lithium carbonate 12:00:00 AM EDT 300 mg by mouth completed <td ID="MedicationRxNorm_2">956972</td><td ID="MedicationMedication_2">lithium carbonate</td><td ID="MedicationRoute_2">by mouth</td><td ID="MedicationRouteConcept_2">K76771</td><td ID="MedicationStartDate_2">05/13/2021</td><td ID="MedicationStopDate_2">07/12/2021</td><td ID="MedicationDosageFrequency_2">once a day</td><td ID="MedicationDuration_2">30</td><td ID="MedicationFormulaStrength_2">300 mg</td><td ID="MedicationDosageForm_2">tablet</td><td ID="MedicationDosageFormCode_2"></td><td ID="MedicationDosageDescription_2"></td><td ID="MedicationMedicationId_2">[id number]</td><td ID="MedicationAccount_2">[id number]</td><td ID="MedicationNpid_2">[id number]</td><td ID="MedicationAuthorFirstName_2">Kemi</td><td ID="MedicationAuthorLastName_2">MacQueen</td><td ID="MedicationTaxonomyCode_2">[id number]</td><td ID="MedicationTaxonomyDesc_2">Psychiatric/Mental Health</td><td ID="MedicationPhoneNumber_2">[phone]</td> [facility] ([facility]) Amlodipine 5 MG Oral Tablet amLODIPine Besylate 5 MG amLODIP ine Besylate 5 MG 05/10/2021 12:00:00 AM EDT 1.0 {tablet} active amLODIPine Besylate 5 MG eCW1 ([facility]) Amlodipine 5 MG Oral Tablet amLODIPine Besylate 5 MG amLODIP ine Besylate 5 MG 05/10/2021 12:00:00 AM EDT 1.0 {tablet} active amLODIPine Besylate 5 MG eCW1 ([facility]) Amlodipine 5 MG Oral Tablet amLODIPine Besylate 5 MG amLODIP ine Besylate 5 MG 05/10/2021 12:00:00 AM EDT 1.0 {tablet} active amLODIPine Besylate 5 MG eCW1 ([facility]) Mulga Carbonate 300 MG Oral Capsule Mulga Carbonate 300 MG 05/10/2021 12:00:00 AM EDT 1.0 {capsule_at_bedtime} active Mulga Carbonate 300 MG eCW1 ([facility]) Mulga Carbonate 300 MG Oral Capsule Mulga Carbonate 300 MG 05/10/2021 12:00:00 AM EDT 1.0 {capsule_at_bedtime} active Mulga Carbonate 300 MG eCW1 ([facility]) Amlodipine 5 MG Oral Tablet amLODIPine Besylate 5 MG amLODIP ine Besylate 5 MG 05/10/2021 12:00:00 AM EDT 1.0 {tablet} active amLODIPine Besylate 5 MG eCW1 ([facility]) Amlodipine 5 MG Oral Tablet amLODIPine Besylate 5 MG amLODIP ine Besylate 5 MG 05/10/2021 12:00:00 AM EDT 1.0 {tablet} active amLODIPine Besylate 5 MG eCW1 ([facility]) Sertraline 100 MG Oral Tablet [Zoloft] Zoloft 100 MG Zoloft 100 MG 05/10/2021 12:00:00 AM EDT 1.0 {tablet} active Zo loft 100 MG eCW1 ([facility]) Mulga Carbonate 300 MG Oral Capsule Mulga Carbonate 300 MG 05/10/2021 12:00:00 AM EDT 1.0 {capsule_at_bedtime} active Mulga Carbonate 300 MG eCW1 ([facility]) Amlodipine 5 MG Oral Tablet amLODIPine Besylate 5 MG amLODIP ine Besylate 5 MG 05/10/2021 12:00:00 AM EDT 1.0 {tablet} active amLODIPine Besylate 5 MG eCW1 ([facility]) Mulga Carbonate 300 MG Oral Capsule Mulga Carbonate 300 MG 05/10/2021 12:00:00 AM EDT 1.0 {capsule_at_bedtime} active Mulga Carbonate 300 MG eCW1 ([facility]) Mulga Carbonate 300 MG Oral Capsule Mulga Carbonate 300 MG 05/10/2021 12:00:00 AM EDT 1.0 {capsule_at_bedtime} active Mulga Carbonate 300 MG eCW1 ([facility]) Amlodipine 5 MG Oral Tablet amLODIPine Besylate 5 MG amLODIP ine Besylate 5 MG 05/10/2021 12:00:00 AM EDT 1.0 {tablet} active amLODIPine Besylate 5 MG eCW1 ([facility]) Mulga Carbonate 300 MG Oral Capsule Mulga Carbonate 300 MG 05/10/2021 12:00:00 AM EDT 1.0 {capsule_at_bedtime} active Mulga Carbonate 300 MG eCW1 ([facility]) Sertraline 100 MG Oral Tablet [Zoloft] Zoloft 100 MG Zoloft 100 MG 05/10/2021 12:00:00 AM EDT 1.0 {tablet} active Zo loft 100 MG eCW1 ([facility]) Amlodipine 5 MG Oral Tablet amLODIPine Besylate 5 MG amLODIP ine Besylate 5 MG 05/10/2021 12:00:00 AM EDT 1.0 {tablet} active amLODIPine Besylate 5 MG eCW1 ([facility]) Mulga Carbonate 300 MG Oral Capsule Mulga Carbonate 300 MG 05/10/2021 12:00:00 AM EDT 1.0 {capsule_at_bedtime} active Mulga Carbonate 300 MG eCW1 ([facility]) Amlodipine 5 MG Oral Tablet amLODIPine Besylate 5 MG amLODIP ine Besylate 5 MG 05/10/2021 12:00:00 AM EDT 1.0 {tablet} active amLODIPine Besylate 5 MG eCW1 ([facility]) Mulga Carbonate 300 MG Oral Capsule Mulga Carbonate 300 MG 05/10/2021 12:00:00 AM EDT 1.0 {capsule_at_bedtime} active Mulga Carbonate 300 MG eCW1 ([facility]) Amlodipine 5 MG Oral Tablet amLODIPine Besylate 5 MG amLODIP ine Besylate 5 MG 05/10/2021 12:00:00 AM EDT 1.0 {tablet} active amLODIPine Besylate 5 MG eCW1 ([facility]) Mulga Carbonate 300 MG Oral Capsule Mulga Carbonate 300 MG 05/10/2021 12:00:00 AM EDT 1.0 {capsule_at_bedtime} active Mulga Carbonate 300 MG eCW1 ([facility]) Amlodipine 5 MG Oral Tablet amLODIPine Besylate 5 MG amLODIP ine Besylate 5 MG 05/10/2021 12:00:00 AM EDT 1.0 {tablet} active amLODIPine Besylate 5 MG eCW1 ([facility]) Amlodipine 5 MG Oral Tablet amLODIPine Besylate 5 MG amLODIP ine Besylate 5 MG 05/10/2021 12:00:00 AM EDT 1.0 {tablet} active amLODIPine Besylate 5 MG eCW1 ([facility]) Amlodipine 5 MG Oral Tablet amLODIPine Besylate 5 MG amLODIP ine Besylate 5 MG 05/10/2021 12:00:00 AM EDT 1.0 {tablet} active amLODIPine Besylate 5 MG eCW1 ([facility]) Amlodipine 5 MG Oral Tablet amLODIPine Besylate 5 MG amLODIP ine Besylate 5 MG 05/10/2021 12:00:00 AM EDT 1.0 {tablet} active amLODIPine Besylate 5 MG eCW1 ([facility]) Mulga Carbonate 300 MG Oral Capsule Mulga Carbonate 300 MG 05/10/2021 12:00:00 AM EDT 1.0 {capsule_at_bedtime} active Mulga Carbonate 300 MG eCW1 ([facility]) Sertraline 100 MG Oral Tablet [Zoloft] Zoloft 100 MG Zoloft 100 MG 05/10/2021 12:00:00 AM EDT 1.0 {tablet} active Zo loft 100 MG eCW1 ([facility]) Lidocaine Hydrochloride 20 MG/ML Mucous Membrane Topical Solution Lidocaine Viscous HCl 2 % Lidocaine Viscous HCl 2 % 04/26/2021 12:00:00 AM EDT 15.0 {ml_as_needed} active Lidocaine Viscous HCl 2 % eCW1 ([facility]) Lidocaine Hydrochloride 20 MG/ML Mucous Membrane Topical Solution Lidocaine Viscous HCl 2 % Lidocaine Viscous HCl 2 % 04/26/2021 12:00:00 AM EDT 15.0 {ml} active Lidocaine Viscous HCl 2 % eCW1 ([facility]) Lidocaine Hydrochloride 20 MG/ML Mucous Membrane Topical Solution Lidocaine Viscous HCl 2 % Lidocaine Viscous HCl 2 % 04/26/2021 12:00:00 AM EDT 15.0 {ml_as_needed} active Lidocaine Viscous HCl 2 % eCW1 ([facility]) Lidocaine Hydrochloride 20 MG/ML Mucous Membrane Topical Solution Lidocaine Viscous HCl 2 % Lidocaine Viscous HCl 2 % 04/26/2021 12:00:00 AM EDT 15.0 {ml_as_needed} active Lidocaine Viscous HCl 2 % eCW1 ([facility]) Lidocaine Hydrochloride 20 MG/ML Mucous Membrane Topical Solution Lidocaine Viscous HCl 2 % Lidocaine Viscous HCl 2 % 04/26/2021 12:00:00 AM EDT 15.0 {ml_as_needed} active Lidocaine Viscous HCl 2 % eCW1 ([facility]) Lidocaine Hydrochloride 20 MG/ML Mucous Membrane Topical Solution Lidocaine Viscous HCl 2 % Lidocaine Viscous HCl 2 % 04/26/2021 12:00:00 AM EDT 15.0 {ml_as_needed} active Lidocaine Viscous HCl 2 % eCW1 ([facility]) Sertraline 100 MG Oral Tablet [Zoloft] Zoloft 03/29/2021 12:0 0:00 AM EDT 100 mg by mouth completed <td ID="Me dicationRxNorm_4">464911</td><td ID="MedicationMedication_4">Zoloft</td><td ID="MedicationRoute_4">by mouth</td><td ID="MedicationRouteConcept_4">[id number]</td><td ID="MedicationStartDate_4">03/29/2021</td><td ID="MedicationStopDate_4">09/14/2021</td><td ID="MedicationDosageFrequency_4">every morning</td><td ID="MedicationDuration_4">30</td><td ID="MedicationFormulaStrength_4">100 mg</td><td ID="MedicationDosageForm_4">tablet</td><td ID="MedicationDosageFormCode_4"></td><td ID="MedicationDosageDescription_4"> </td><td ID="MedicationMedicationId_4">[id number]</td><td ID="MedicationAccount_4">[id number]</td><td ID="MedicationNpid_4">[id number]</td><td ID="MedicationAuthorFirstName_4">Kemi</td><td ID="MedicationAuthorLastName_4">MacQueen</td><td ID="MedicationTaxonomyCode_4">[id number]</td><td ID="MedicationTaxonomyDesc_4">Psychiatric/Mental Health</td><td ID="MedicationPhoneNumber_4">[phone]</td> [facility] ([facility]) Sertraline 100 MG Oral Tablet [Zoloft] Zoloft 03/29/2021 12:0 0:00 AM EDT 100 mg by mouth completed <td ID="Me dicationRxNorm_3">436387</td><td ID="MedicationMedication_3">Zoloft</td><td ID="MedicationRoute_3">by mouth</td><td ID="MedicationRouteConcept_3">[id number]</td><td ID="MedicationStartDate_3">03/29/2021</td><td ID="MedicationStopDate_3">07/13/2021</td><td ID="MedicationDosageFrequency_3">every morning</td><td ID="MedicationDuration_3">30</td><td ID="MedicationFormulaStrength_3">100 mg</td><td ID="MedicationDosageForm_3">tablet</td><td ID="MedicationDosageFormCode_3"></td><td ID="MedicationDosageDescription_3"> </td><td ID="MedicationMedicationId_3">[id number]</td><td ID="MedicationAccount_3">[id number]</td><td ID="MedicationNpid_3">[id number]</td><td ID="MedicationAuthorFirstName_3">Kemi</td><td ID="MedicationAuthorLastName_3">MacQueen</td><td ID="MedicationTaxonomyCode_3">[id number]</td><td ID="MedicationTaxonomyDesc_3">Psychiatric/Mental Health</td><td ID="MedicationPhoneNumber_3">[phone]</td> [facility] ([facility]) Hydroxychloroquine Sulfate 200 MG Oral T ablet Hydroxychloroquine Sulfate 200 MG Oral Tablet (PLAQUENIL) Hydroxychloroquine Sulfate 200 MG Oral T ablet (PLAQUENIL) 02/18/2021 12:00:00 AM EDT a ctive Rheumatoid factor positivePositive HAYLIE (antinuclear antibody)PolyarthralgiaESR raisedMCTD (mixed connective tissue disease) TAKE ONE TABLET BY MOUTH @8 AM and TAKE ONE TABLET BY MOUTH @8PM [facility] Rheumatoid factor positive Positive HAYLIE (antinuclear antibody) Polyarthralgia ESR raised MCTD (mixed connective tissue disease) 2 ML Sodium Hyaluronate 10 MG/ML Prefilled Syringe [Euflexxa ] Euflexxa 12/11/2020 12:00:00 AM EDT active [facility] ([facility]) retapamulin 0.01 MG/MG Topical Ointment [Altabax] Altabax 1 % Altabax 1 % 10/08/2020 12:00:00 AM EST 1.0 {application} active Altabax 1 % eCW1 ([facility]) retapamulin 0.01 MG/MG Topical Ointment [Altabax] Altabax 1 % Altabax 1 % 10/08/2020 12:00:00 AM EST 1.0 {application} active Altabax 1 % eCW1 ([facility]) retapamulin 0.01 MG/MG Topical Ointment [Altabax] Altabax 1 % Altabax 1 % 10/08/2020 12:00:00 AM EST 1.0 {application} active Altabax 1 % eCW1 ([facility]) retapamulin 0.01 MG/MG Topical Ointment [Altabax] Altabax 1 % Altabax 1 % 10/08/2020 12:00:00 AM EST 1.0 {application} active Altabax 1 % eCW1 ([facility]) Fluconazole 100 MG Oral Tablet [Diflucan] Diflucan 100 MG Di flucan 100 MG 10/08/2020 12:00:00 AM EST 1.0 {tablet} active Diflucan 100 MG eCW1 ([facility]) Fluconazole 100 MG Oral Tablet [Diflucan] Diflucan 100 MG Di flucan 100 MG 10/08/2020 12:00:00 AM EST 1.0 {tablet} active Diflucan 100 MG eCW1 ([facility]) retapamulin 0.01 MG/MG Topical Ointment [Altabax] Altabax 1 % Altabax 1 % 10/08/2020 12:00:00 AM EST 1.0 {application} active Altabax 1 % eCW1 ([facility]) Fluconazole 100 MG Oral Tablet [Diflucan] Diflucan 100 MG Di flucan 100 MG 10/08/2020 12:00:00 AM EST 1.0 {tablet} active Diflucan 100 MG eCW1 ([facility]) Fluconazole 100 MG Oral Tablet [Diflucan] Diflucan 100 MG Di flucan 100 MG 10/08/2020 12:00:00 AM EST 1.0 {tablet} active Diflucan 100 MG eCW1 ([facility]) retapamulin 0.01 MG/MG Topical Ointment [Altabax] Altabax 1 % Altabax 1 % 10/08/2020 12:00:00 AM EST 1.0 {application} active Altabax 1 % eCW1 ([facility]) retapamulin 0.01 MG/MG Topical Ointment [Altabax] Altabax 1 % Altabax 1 % 10/08/2020 12:00:00 AM EST 1.0 {application} active Altabax 1 % eCW1 ([facility]) Fluconazole 100 MG Oral Tablet [Diflucan] Diflucan 100 MG Di flucan 100 MG 10/08/2020 12:00:00 AM EST 1.0 {tablet} active Diflucan 100 MG eCW1 ([facility]) Fluconazole 100 MG Oral Tablet [Diflucan] Diflucan 100 MG Di flucan 100 MG 10/08/2020 12:00:00 AM EST 1.0 {tablet} active Diflucan 100 MG eCW1 ([facility]) retapamulin 0.01 MG/MG Topical Ointment [Altabax] Altabax 1 % Altabax 1 % 10/08/2020 12:00:00 AM EST 1.0 {application} active Altabax 1 % eCW1 ([facility]) Fluconazole 100 MG Oral Tablet [Diflucan] Diflucan 100 MG Di flucan 100 MG 10/08/2020 12:00:00 AM EST 1.0 {tablet} active Diflucan 100 MG eCW1 ([facility]) retapamulin 0.01 MG/MG Topical Ointment [Altabax] Altabax 1 % Altabax 1 % 10/08/2020 12:00:00 AM EST 1.0 {application} active Altabax 1 % eCW1 ([facility]) Fluconazole 100 MG Oral Tablet [Diflucan] Diflucan 100 MG Di flucan 100 MG 10/08/2020 12:00:00 AM EST 1.0 {tablet} active Diflucan 100 MG eCW1 ([facility]) Fluconazole 100 MG Oral Tablet [Diflucan] Diflucan 100 MG Di flucan 100 MG 10/08/2020 12:00:00 AM EST 1.0 {tablet} active Diflucan 100 MG eCW1 ([facility]) retapamulin 0.01 MG/MG Topical Ointment [Altabax] Altabax 1 % Altabax 1 % 10/08/2020 12:00:00 AM EST 1.0 {application} active Altabax 1 % eCW1 ([facility]) Fluconazole 100 MG Oral Tablet [Diflucan] Diflucan 100 MG Di flucan 100 MG 10/08/2020 12:00:00 AM EST 1.0 {tablet} active Diflucan 100 MG eCW1 ([facility]) Fluconazole 100 MG Oral Tablet [Diflucan] Diflucan 100 MG Di flucan 100 MG 10/08/2020 12:00:00 AM EST 1.0 {tablet} active Diflucan 100 MG eCW1 ([facility]) retapamulin 0.01 MG/MG Topical Ointment [Altabax] Altabax 1 % Altabax 1 % 10/08/2020 12:00:00 AM EST 1.0 {application} active Altabax 1 % eCW1 ([facility]) Fluconazole 100 MG Oral Tablet [Diflucan] Diflucan 100 MG Di flucan 100 MG 10/08/2020 12:00:00 AM EST 1.0 {tablet} active Diflucan 100 MG eCW1 ([facility]) retapamulin 0.01 MG/MG Topical Ointment [Altabax] Altabax 1 % Altabax 1 % 10/08/2020 12:00:00 AM EST 1.0 {application} active Altabax 1 % eCW1 ([facility]) retapamulin 0.01 MG/MG Topical Ointment [Altabax] Altabax 1 % Altabax 1 % 10/08/2020 12:00:00 AM EST 1.0 {application} active Altabax 1 % eCW1 ([facility]) retapamulin 0.01 MG/MG Topical Ointment [Altabax] Altabax 1 % Altabax 1 % 10/08/2020 12:00:00 AM EST 1.0 {application} active Altabax 1 % eCW1 ([facility]) Fluconazole 100 MG Oral Tablet [Diflucan] Diflucan 100 MG Di flucan 100 MG 10/08/2020 12:00:00 AM EST 1.0 {tablet} active Diflucan 100 MG eCW1 ([facility]) retapamulin 0.01 MG/MG Topical Ointment [Altabax] Altabax 1 % Altabax 1 % 10/08/2020 12:00:00 AM EST 1.0 {application} active Altabax 1 % eCW1 ([facility]) Fluconazole 100 MG Oral Tablet [Diflucan] Diflucan 100 MG Di flucan 100 MG 10/08/2020 12:00:00 AM EST 1.0 {tablet} active Diflucan 100 MG eCW1 ([facility]) Fluconazole 100 MG Oral Tablet [Diflucan] Diflucan 100 MG Di flucan 100 MG 10/08/2020 12:00:00 AM EST 1.0 {tablet} active Diflucan 100 MG eCW1 ([facility]) Fluconazole 100 MG Oral Tablet [Diflucan] Diflucan 100 MG Di flucan 100 MG 10/08/2020 12:00:00 AM EST 1.0 {tablet} active Diflucan 100 MG eCW1 ([facility]) retapamulin 0.01 MG/MG Topical Ointment [Altabax] Altabax 1 % Altabax 1 % 10/08/2020 12:00:00 AM EST 1.0 {application} active Altabax 1 % eCW1 ([facility]) Fluconazole 100 MG Oral Tablet [Diflucan] Diflucan 100 MG Di flucan 100 MG 10/08/2020 12:00:00 AM EST 1.0 {tablet} active Diflucan 100 MG eCW1 ([facility]) Fluconazole 100 MG Oral Tablet [Diflucan] Diflucan 100 MG Di flucan 100 MG 10/08/2020 12:00:00 AM EST 1.0 {tablet} active Diflucan 100 MG eCW1 ([facility]) retapamulin 0.01 MG/MG Topical Ointment [Altabax] Altabax 1 % Altabax 1 % 10/08/2020 12:00:00 AM EST 1.0 {application} active Altabax 1 % eCW1 ([facility]) retapamulin 0.01 MG/MG Topical Ointment [Altabax] Altabax 1 % Altabax 1 % 10/08/2020 12:00:00 AM EST 1.0 {application} active Altabax 1 % eCW1 ([facility]) Rolling Walker 1 UNK 07/13/2020 12:00:00 AM EST active Rolling Walker 1 eCW1 ([facility]) Rolling Walker 1 UNK 07/13/2020 12:00:00 AM EST active Rolling Walker 1 eCW1 ([facility]) Rolling Walker 1 UNK 07/13/2020 12:00:00 AM EST active Rolling Walker 1 eCW1 ([facility]) Rolling Walker 1 UNK 07/13/2020 12:00:00 AM EST active Rolling Walker 1 eCW1 ([facility]) Rolling Walker 1 UNK 07/13/2020 12:00:00 AM EST active Rolling Walker 1 eCW1 ([facility]) Rolling Walker 1 UNK 07/13/2020 12:00:00 AM EST active Rolling Walker 1 eCW1 ([facility]) Rolling Walker 1 UNK 07/13/2020 12:00:00 AM EST active Rolling Walker 1 eCW1 ([facility]) Rolling Walker 1 UNK 07/13/2020 12:00:00 AM EST active Rolling Walker 1 eCW1 ([facility]) Rolling Walker 1 UNK 07/13/2020 12:00:00 AM EST active Rolling Walker 1 eCW1 ([facility]) Rolling Walker 1 UNK 07/13/2020 12:00:00 AM EST active Rolling Walker 1 eCW1 ([facility]) Rolling Walker 1 UNK 07/13/2020 12:00:00 AM EST active Rolling Walker 1 eCW1 ([facility]) Rolling Walker 1 UNK 07/13/2020 12:00:00 AM EST active Rolling Walker 1 eCW1 ([facility]) Rolling Walker 1 UNK 07/13/2020 12:00:00 AM EST active Rolling Walker 1 eCW1 ([facility]) Rolling Walker 1 UNK 07/13/2020 12:00:00 AM EST active Rolling Walker 1 eCW1 ([facility]) Rolling Walker 1 UNK 07/13/2020 12:00:00 AM EST active Rolling Walker 1 eCW1 ([facility]) Rolling Walker 1 UNK 07/13/2020 12:00:00 AM EST active Rolling Walker 1 eCW1 ([facility]) Rolling Walker 1 UNK 07/13/2020 12:00:00 AM EST active Rolling Walker 1 eCW1 ([facility]) Rolling Walker 1 UNK 07/13/2020 12:00:00 AM EST active Rolling Walker 1 eCW1 ([facility]) Rolling Walker 1 UNK 07/13/2020 12:00:00 AM EST active Rolling Walker 1 eCW1 ([facility]) Rolling Walker 1 UNK 07/13/2020 12:00:00 AM EST active Rolling Walker 1 eCW1 ([facility]) Rolling Walker 1 UNK 07/13/2020 12:00:00 AM EST active Rolling Walker 1 eCW1 ([facility]) Rolling Walker 1 UNK 07/13/2020 12:00:00 AM EST active Rolling Walker 1 eCW1 ([facility]) Rolling Walker 1 UNK 07/13/2020 12:00:00 AM EST active Rolling Walker 1 eCW1 ([facility]) Rolling Walker 1 UNK 07/13/2020 12:00:00 AM EST active Rolling Walker 1 eCW1 ([facility]) Rolling Walker 1 UNK 07/13/2020 12:00:00 AM EST active Rolling Walker 1 eCW1 ([facility]) Rolling Walker 1 UNK 07/13/2020 12:00:00 AM EST active Rolling Walker 1 eCW1 ([facility]) Rolling Walker 1 UNK 07/13/2020 12:00:00 AM EST active Rolling Walker 1 eCW1 ([facility]) Rolling Walker 1 UNK 07/13/2020 12:00:00 AM EST active Rolling Walker 1 eCW1 ([facility]) Rolling Walker 1 UNK 07/13/2020 12:00:00 AM EST active Rolling Walker 1 eCW1 ([facility]) Rolling Walker 1 UNK 07/13/2020 12:00:00 AM EST active Rolling Walker 1 eCW1 ([facility]) Rolling Walker 1 UNK 07/13/2020 12:00:00 AM EST active Rolling Walker 1 eCW1 ([facility]) Rolling Walker 1 UNK 07/13/2020 12:00:00 AM EST active Rolling Walker 1 eCW1 ([facility]) Rolling Walker 1 UNK 07/13/2020 12:00:00 AM EST active Rolling Walker 1 eCW1 ([facility]) Rolling Walker 1 UNK 07/13/2020 12:00:00 AM EST active Rolling Walker 1 eCW1 ([facility]) Rolling Walker 1 UNK 07/13/2020 12:00:00 AM EST active Rolling Walker 1 eCW1 ([facility]) Rolling Walker 1 UNK 07/13/2020 12:00:00 AM EST active Rolling Walker 1 eCW1 ([facility]) Rolling Walker 1 UNK 07/13/2020 12:00:00 AM EST active Rolling Walker 1 eCW1 ([facility]) Rolling Walker 1 UNK 07/13/2020 12:00:00 AM EST active Rolling Walker 1 eCW1 ([facility]) Rolling Walker 1 UNK 07/13/2020 12:00:00 AM EST active Rolling Walker 1 eCW1 ([facility]) Rolling Walker 1 UNK 07/13/2020 12:00:00 AM EST active Rolling Walker 1 eCW1 ([facility]) Rolling Walker 1 UNK 07/13/2020 12:00:00 AM EST active Rolling Walker 1 eCW1 ([facility]) Rolling Walker 1 UNK 07/13/2020 12:00:00 AM EST active Rolling Walker 1 eCW1 ([facility]) Rolling Walker 1 UNK 07/13/2020 12:00:00 AM EST active Rolling Walker 1 eCW1 ([facility]) Triamcinolone Acetonide 0.001 MG/MG Oral Paste Triamci nolone Acetonide Dental Paste 07/10/2020 12:00:00 AM EST active MEDENT ([facility]) Betamethasone 0.5 MG/ML / Clotrimazole 1 0 MG/ML Topical Cream Clotrimazole- Betamethasone 1-0.05 % Clotrimazole-Betamethasone 1-0.05 % 06/15/2020 12:00:0 0 AM EDT 1.0 {application} active Clotri mazole-Betamethasone 1-0.05 % eCW1 ([facility]) Betamethasone 0.5 MG/ML / Clotrimazole 1 0 MG/ML Topical Cream Clotrimazole- Betamethasone 1-0.05 % Clotrimazole-Betamethasone 1-0.05 % 06/15/2020 12:00:0 0 AM EDT 1.0 {application} active Clotri mazole-Betamethasone 1-0.05 % eCW1 ([facility]) Betamethasone 0.5 MG/ML / Clotrimazole 1 0 MG/ML Topical Cream Clotrimazole- Betamethasone 1-0.05 % Clotrimazole-Betamethasone 1-0.05 % 06/15/2020 12:00:0 0 AM EDT 1.0 {application} active Clotri mazole-Betamethasone 1-0.05 % eCW1 ([facility]) Betamethasone 0.5 MG/ML / Clotrimazole 1 0 MG/ML Topical Cream Clotrimazole- Betamethasone 1-0.05 % Clotrimazole-Betamethasone 1-0.05 % 06/15/2020 12:00:0 0 AM EDT 1.0 {application} active Clotri mazole-Betamethasone 1-0.05 % eCW1 ([facility]) Betamethasone 0.5 MG/ML / Clotrimazole 1 0 MG/ML Topical Cream Clotrimazole- Betamethasone 1-0.05 % Clotrimazole-Betamethasone 1-0.05 % 06/15/2020 12:00:0 0 AM EDT 1.0 {application} active Clotri mazole-Betamethasone 1-0.05 % eCW1 ([facility]) Betamethasone 0.5 MG/ML / Clotrimazole 1 0 MG/ML Topical Cream Clotrimazole- Betamethasone 1-0.05 % Clotrimazole-Betamethasone 1-0.05 % 06/15/2020 12:00:0 0 AM EDT 1.0 {application} active Clotri mazole-Betamethasone 1-0.05 % eCW1 ([facility]) Betamethasone 0.5 MG/ML / Clotrimazole 1 0 MG/ML Topical Cream Clotrimazole- Betamethasone 1-0.05 % Clotrimazole-Betamethasone 1-0.05 % 06/15/2020 12:00:0 0 AM EDT 1.0 {application} active Clotri mazole-Betamethasone 1-0.05 % eCW1 ([facility]) Betamethasone 0.5 MG/ML / Clotrimazole 1 0 MG/ML Topical Cream Clotrimazole- Betamethasone 1-0.05 % Clotrimazole-Betamethasone 1-0.05 % 06/15/2020 12:00:0 0 AM EDT 1.0 {application} active Clotri mazole-Betamethasone 1-0.05 % eCW1 ([facility]) Betamethasone 0.5 MG/ML / Clotrimazole 1 0 MG/ML Topical Cream Clotrimazole- Betamethasone 1-0.05 % Clotrimazole-Betamethasone 1-0.05 % 06/15/2020 12:00:0 0 AM EDT 1.0 {application} active Clotri mazole-Betamethasone 1-0.05 % eCW1 ([facility]) Betamethasone 0.5 MG/ML / Clotrimazole 1 0 MG/ML Topical Cream Clotrimazole- Betamethasone 1-0.05 % Clotrimazole-Betamethasone 1-0.05 % 06/15/2020 12:00:0 0 AM EDT 1.0 {application} active Clotri mazole-Betamethasone 1-0.05 % eCW1 ([facility]) Betamethasone 0.5 MG/ML / Clotrimazole 1 0 MG/ML Topical Cream Clotrimazole- Betamethasone 1-0.05 % Clotrimazole-Betamethasone 1-0.05 % 06/15/2020 12:00:0 0 AM EDT 1.0 {application} active Clotri mazole-Betamethasone 1-0.05 % eCW1 ([facility]) Hydroxychloroquine Sulfate 200 MG Oral T ablet Hydroxychloroquine Sulfate 200 MG Oral Tablet (PLAQUENIL) Hydroxychloroquine Sulfate 200 MG Oral T ablet (PLAQUENIL) 06/02/2020 12:00:00 AM EDT 200 mg Oral a ctive Rheumatoid factor positivePositive HAYLIE (antinuclear antibody)PolyarthralgiaESR raisedMCTD (mixed connective tissue disease) Take 1 tablet by mouth Two Times Daily [facility] Rheumatoid factor positive Positive HAYLIE (antinuclear antibody) Polyarthralgia ESR raised MCTD (mixed connective tissue disease) 2 ML Sodium Hyaluronate 10 MG/ML Prefilled Syringe [Euflexxa ] Euflexxa 04/21/2020 12:00:00 AM EDT completed [facility] ([facility]) Hydroxychloroquine Sulfate 200 MG Oral T ablet Hydroxychloroquine Sulfate 200 MG Oral Tablet (PLAQUENIL) Hydroxychloroquine Sulfate 200 MG Oral T ablet (PLAQUENIL) 03/26/2020 12:00:00 AM EDT 200 mg Oral a borted Rheumatoid factor positivePositive HAYLIE (antinuclear antibody)PolyarthralgiaESR raisedMCTD (mixed connective tissue disease) Take 1 tablet by mouth Two Times Daily [facility] Rheumatoid factor positive Positive HAYLIE (antinuclear antibody) Polyarthralgia ESR raised MCTD (mixed connective tissue disease) Sertraline 100 MG Oral Tablet [Zoloft] Zoloft 02/26/2020 12:0 0:00 AM EDT 100 mg by mouth completed <td ID="Me dicationRxNorm_2">[id number]</td><td ID="MedicationMedication_2">Zoloft</td><td ID="MedicationRoute_2">by mouth</td><td ID="MedicationRouteConcept_2">F15099</td><td ID="MedicationStartDate_2">02/26/2020</td><td ID="MedicationStopDate_2">03/23/2021</td><td ID="MedicationDosageFrequency_2">once a day</td><td ID="MedicationDuration_2">30</td><td ID="MedicationFormulaStrength_2">100 mg</td><td ID="MedicationDosageForm_2">tablet</td><td ID="MedicationDosageFormCode_2"></td><td ID="MedicationDosageDescription_2"></td><td ID="MedicationMedicationId_2">[id number]</td><td ID="MedicationAccount_2">[id number]</td><td ID="MedicationNpid_2">[id number]</td><td ID="MedicationAuthorFirstName_2">Kemi</td><td ID="MedicationAuthorLastName_2">Dajuan</td><td ID="MedicationTaxonomyCode_2">[id number]</td><td ID="MedicationTaxonomyDesc_2">Psychiatric/Mental Health</td><td ID="MedicationPhoneNumber_2">[phone]</td> [facility] ([facility]) Insurance Providers Payer name Policy type / Coverage type Policy ID Covered democrat ID Covered democrat's relationship to camacho Policy [place] Plan Information [id number] MEDICARE A [id number] Self [id number] MEDICARE A [id number] Self [id number] MEDICARE [id number] SP [id number] MEDICARE [id number] SP [id number] [place] [id number] Self [id number] [place] Primary [id number] Self [id number] [place] Primary [id number] Self [id number] [place] Primary [id number] Self [id number] [place] Primary [id number] Self [id number] [place] Primary [id number] Self [id number] [place] Primary [id number] Self [id number] [place] Primary [id number] Self [id number] [place] Primary [id number] Self [id number] [place] Primary [id number] Self [id number] [place] Primary [id number].514987.0 Self [id number] [place] [id number] 2.0.1.355009.3.227.99.991.261566.0 Self [id number] [place] [id number] 2.0.1.421041.3.227.99.991.819367.0 Self [id number] [place] [id number] Self [id number] Medicaid [place] Med[place]ap Part B [id number] MRN.[id number] Self [id number] [place] [id number] [id number] Self [id number] Medicare [place] [id number] [id number] Self [id number] [place] [id number] [id number] Self [id number] [place] [id number] [id number] Self [id number] Medicaid [facility] Part B [id number] Self Medicare [place] Medicare Primary [id number] Self Medicare [place] Medicare Primary [id number] [id number] Self [id number] Medicare [place] Medicare Primary [id number] MRN.[id number] Self [id number] Medicare [place] Medicare Primary [id number] [id number] Self [id number] Medicare [place] Medicare Primary [id number] MRN.[id number] Self [id number] Medicare [place] Medicare Primary [id number] [id number] Self [id number] Medicare [place] Medicare Primary [id number] [id number] Self [id number] Medicare [place] Medicare Primary [id number] MRN.[id number] Self [id number] Medicare [place] Medicare Primary [id number] 2.0.1.094[id number] Self [id number] Medicare [place] Medicare Primary [id number] [id number] Self [id number] [facility] [id number] SP [id number] [facility] [id number] SP [id number] [facility] [id number] SP [id number] Medicare P [id number] S [id number] MEDICAID M [id number] Self [id number] AARP U [id number] Self [id number] MEDICARE [id number] SP [id number] MEDICAID M [id number] S [id number] AARP O [id number] S [id number] 3 MEDICAID [id number] SP [id number] [facility] [id number] SP [id number] [facility] [id number] SP [id number] MEDICARE [id number] SP [id number] [id number] SP [id number] V [id number] MEDICARE [id number] SP [id number] MEDICARE C [id number] S [id number] C76 MEDICAID M [id number] S [id number] [place] [id number] SP [id number] Medicaid S UNAVAILABLE S UNAVAILA BLE Medicare P [id number] S [id number] C76 AETNA MEDICARE [id number] SP [id number] MEDICAID [id number] SP [id number] Medicare S UNAVAILABLE S [place] BLE MEDICARE [id number] SP [id number] AETNA MEDICARE [id number] SP [id number] MEDICARE C [id number] S [id number] AETNA MEDICARE O [id number] S [id number] ANSI-Medicaid [id number] ANSI-Medicare Part B [id number] ANSI-Medicare Part B [id number] ANSI-Medicare Part B [id number] ANSI-Medicare Part B [id number] ANSI-Medicaid [id number] Medicare Dme Supplies [facility] Part B [id number] Self [id number] ANSI-Medicare Part B [id number] ANSI-Medicaid [id number] ANSI-Medicare Part B [id number] ANSI-Medicaid [id number] ANSI-Medicare Part B [id number] ANSI-Medicare Part B [id number] Medicare Dme Supplies Medigap Part B [id number] [id number] Self [id number] Medicare Dme Supplies Medigap Part B [id number] [id number] Self [id number] Medicaid [place] Med[place] Part B [id number] Self [id number] Medicare - [place] Medicare Primary [id number] Self [id number] Medicare Dme Supplies Medigap Part B [id number] [id number] Self [id number] Medicare Dme Supplies Medigap Part B [id number] [id number] Self [id number] Medicare Dme Supplies Medigap Part B [id number] Self [id number] [facility] OPTIONS [id number] SP [id number] MEDICAID [id number] SP [id number] ANSI-Medicaid [id number] ANSI-Medicare Part B [id number] Medicaid [place] Medigap Part B [id number] Self [id number] Medicare - [facility] Medicare Primary [id number] Self 1 [id number] [facility] [id number] 11 [id number] Problems, Conditions, and Diagnoses Code Display Name Description Problem Type Effective Dates Data Source(s) F41.1 Generalized anxiety disorder Generalized Anxiety Disor ino Condition 06/29/2021 12:00:00 AM EDT [facility] ([facility]) F25.0 Schizoaffective disorder, bipolar type S chizoaffective Disorder, Bipolar type Condition 06/29/2021 12:00:00 AM EDT [facility] ([facility]) I10 [id number] Essential hypertension Problem 05/25/2021 12 :00:00 AM EDT eCW1 ([facility]) K14.6 [id number] Tongue pain Problem 05/25/2021 12:00:00 AM E DT eCW1 ([facility]) [id number] Pure hypercholesterolemia Pure hypercholesterolemia Pr oblem 10/05/2020 12:00:00 AM EST [facility] ([facility] ) Surgeries/Procedures Procedure Description Date Indications Data Source(s) Extended Individual Psychotherapy - 45 min 06/29/2021 12:00:00 AM EDT - 06/29/2021 12:00:00 AM EDT [facility] ([facility]) Extended Individual Psychotherapy - 45 min 12:00:00 AM EDT [facility] ([facility]) MHC Telemed E/M Lvl 3--Est pt 06/16/2021 12:00:00 AM EDT - 06/16/2021 12:00:00 AM EDT [facility] ([facility]) MHC Telemed E/M Lvl 3--Est pt 06/16/2021 12:00:00 AM E DT [facility] ([facility]) Extended Individual Psychotherapy - 45 min 06/11/2021 12:00:00 AM EDT - 06/11/2021 12:00:00 AM EDT [facility] ([facility]) Extended Individual Psychotherapy - 45 min 12:00:00 AM EDT [facility] ([facility]) Extended Individual Psychotherapy - 45 min 05/20/2021 12:00:00 AM EDT - 05/20/2021 12:00:00 AM EDT [facility] ([facility]) Extended Individual Psychotherapy - 45 min 12:00:00 AM EDT [facility] ([facility]) MHC Telemed E/M Lvl 3--Est pt 04/29/2021 12:00:00 AM EDT - 04/29/2021 12:00:00 AM EDT [facility] ([facility]) Telemed A/O 30" 04/28/2021 12:00:00 AM EDT [facility] ([facility]) MHC Telemed E/M Lvl 3--Est pt 04/28/2021 12:00:00 AM E DT [facility] ([facility]) MHC Telemed E/M Lvl 3--Est pt 04/14/2021 12:00:00 AM EDT - 04/14/2021 12:00:00 AM EDT [facility] ([facility]) MHC Telemed E/M Lvl 3--Est pt 04/14/2021 12:00:00 AM E DT [facility] ([facility]) Extended Individual Psychotherapy - 45 min 03/26/2021 12:00:00 AM EDT - 03/26/2021 12:00:00 AM EDT [facility] ([facility]) Extended Individual Psychotherapy - 45 min 12:00:00 AM EDT [facility] ([facility]) OFFICE OUTPATIENT VISIT 15 MINUTES 03/03/2021 12:00:00 AM EDT [facility] ([facility]) ARTHROCENTESIS ASPIR&/INJECTION MAJOR JT/BURSA 021 12:00:00 AM EDT [facility] ([facility]) MHC Telemed E/M Lvl 3--Est pt 12/23/2020 12:00:00 AM EDT - 12/23/2020 12:00:00 AM EDT [facility] ([facility]) MHC Telemed E/M Lvl 3--Est pt 12/23/2020 12:00:00 AM E DT [facility] ([facility]) Extended Individual Psychotherapy - 45 min 12/21/2020 12:00:00 AM EDT - 12/21/2020 12:00:00 AM EDT [facility] ([facility]) Extended Individual Psychotherapy - 45 min 12:00:00 AM EDT [facility] ([facility]) ARTHROCENTESIS ASPIR&/INJECTION MAJOR JT/BURSA 021 12:00:00 AM EDT [facility] ([facility] ) ARTHROCENTESIS ASPIR&/INJECTION MAJOR JT/BURSA 021 12:00:00 AM EDT [facility] ([facility] ) Extended Individual Psychotherapy - 45 min 11/27/2020 12:00:00 AM EDT - 11/27/2020 12:00:00 AM EDT [facility] ([facility]) Extended Individual Psychotherapy - 45 min 12:00:00 AM EDT [facility] ([facility]) ARTHROCENTESIS ASPIR&/INJECTION MAJOR JT/BURSA 021 12:00:00 AM EDT [facility] ([facility] ) RADIOLOGIC EXAM KNEE COMPLETE 4/MORE VIEWS 11/13/2020 12:00:00 AM EDT [facility] ([facility] ) RADIOLOGIC EXAM KNEE COMPLETE 4/MORE VIEWS 11/13/2020 12:00:00 AM EDT [facility] ([facility] ) Extended Individual Psychotherapy - 45 min 11/10/2020 12:00:00 AM EDT - 11/10/2020 12:00:00 AM EDT [facility] ([facility]) Extended Individual Psychotherapy - 45 min 12:00:00 AM EDT [facility] ([facility]) [id number]"Psychotherapy 12:00:00 AM EST - 10/23/2020 12:00:00 AM EST [facility] ([facility]) [id number]"Psychotherapy 10/23/2020 12:00:00 AM EST [facility] ([facility]) Extended Individual Psychotherapy - 45 min 10/05/2020 12:00:00 AM EST - 10/05/2020 12:00:00 AM EST [facility] ([facility]) Extended Individual Psychotherapy - 45 min 12:00:00 AM EST [facility] ([facility]) X-Ray Hips Bilateral With Pelvis Minimum 5 Views 10/02 12:00:00 AM EST [facility] ([facility]) MHC Telemed E/M Lvl 3--Est pt 09/16/2020 12:00:00 AM EST - 09/16/2020 12:00:00 AM EST [facility] ([facility]) MHC Telemed E/M Lvl 3--Est pt 09/16/2020 12:00:[address] [facility] ([facility]) Extended Individual Psychotherapy - 45 min 08/27/2020 12:00:00 AM EST - 08/27/2020 12:00:00 AM EST [facility] ([facility]) Extended Individual Psychotherapy - 45 min 0 12:00:00 AM EST [facility] ([facility]) Extended Individual Psychotherapy - 45 min 08/07/2020 12:00:00 AM EST - 08/07/2020 12:00:00 AM EST [facility] ([facility]) Extended Individual Psychotherapy - 45 min 0 12:00:00 AM EST [facility] ([facility]) MHC Telemed E/M Lvl 3--Est pt 08/05/2020 12:00:00 AM EST - 08/05/2020 12:00:00 AM EST [facility] ([facility]) MHC Telemed E/M Lvl 3--Est pt 08/05/2020 12:00:[address] [facility] ([facility]) TEMPMHCTelemed 30" Psychotherapy 020 12:00:00 AM EST - 06/29/2020 12:00:00 AM EST [facility] ([facility]) TEMPMHCTelemed 30" Psychotherapy 06/29/2020 12:00:00 A M EST [facility] ([facility]) Extended Individual Psychotherapy - 45 min 06/26/2020 12:00:00 AM EDT - 06/26/2020 12:00:00 AM EDT [facility] ([facility]) Extended Individual Psychotherapy - 45 min 0 12:00:00 AM EDT [facility] ([facility]) Immunization: Flublok Quadrivalent (18 years & older) 0.5mL IM (Influenza) 06/16/2020 12:00:00 AM EDT eC1 ([facility]) Extended Individual Psychotherapy - 45 min 06/09/2020 12:00:00 AM EDT - 06/09/2020 12:00:00 AM EDT [facility] ([facility]) Extended Individual Psychotherapy - 45 min 0 12:00:00 AM EDT [facility] ([facility]) Extended Individual Psychotherapy - 45 min 05/26/2020 12:00:00 AM EDT - 05/26/2020 12:00:00 AM EDT [facility] ([facility]) Extended Individual Psychotherapy - 45 min 0 12:00:00 AM EDT [facility] ([facility]) MHC Telemed E/M Lvl 3--Est pt 05/21/2020 12:00:00 AM EDT - 05/21/2020 12:00:00 AM EDT [facility] ([facility]) MHC Telemed E/M Lvl 3--Est pt 05/21/2020 12:00:00 AM E DT [facility] ([facility]) ARTHROCENTESIS ASPIR&/INJECTION MAJOR JT/BURSA 12:00:00 AM EDT [facility] ([facility]) Results ID Date Data Source [id number] 06/24/2021 08:50:27 PM EDT [facility] Name Value Range Interpretation Code Description Data Paulina rce(s) Supporting Document(s) Discharge Summary [facility] IYQQJj1kJfRIVbKa67/YGUltKAUjj9ByNEppDQf6OArvTQQlD2VpKUY2uX2nIMJ2HFqQJrWgUjXgLYS0 lbm TaBlwFNoCbIFEkBihBLkHsMNthKnfffAXwIN7DjYP4QXQzL23tSPSvTQQwJ6PzSZM5LGZ+Ln9SVWDmuR NnYI9KQezK1I1Yh7zVTY1QuZ8FEQDrU4wK74S1+VxyK3OhJ8tNtU5sASI3gtO0yl5s42RfqAXIwZ2X1z LuYfT7dRpIJz93C3T57gFhY720S6wj+743+0m5i8tL [file] OAH79M46JHHe/TiID+CD+BA+Jo Ann+XP6eltiR/TpXpY/ gN/CY+loaaTQ2Xc0Eo6jyg1/rJDn7H6DT6Tj/agnes/C7+Bw+lzkBpEP1Wn+gOvZF/G4H4PT3fmnOgyK/xJ asDRsTmrfjGgoVv0MMHN1SNx+x7dpTkgxAwZ0mktU15GKpBYelGunzGP2tVZmivdTzbBVHATB9qS7CjX qajN6G0naDlFpF4793Ce5TJ+V4FfbeccHYlADeHJOm il5d5XtEbqlptdJLZ7XjoFL2vCs7cIHICtGK3VxWqL46uktx8CXp2ENYdJQgNxJ9CYrS6nd8HkHAbCOQ ZKiDGfz2noFHFH9BkHEdf5Nzg4gHFjElf5YXHOsAJsBb9dIbmP28fsS1cwqqTywB2MZCLOvIKOGWKVHH GfQ3vxjzVLRcWXGesbut6soiOxwdqjyseBjhlQOIUd eqjSNrTYcWEX4BH5gspep6OFPbP9Tb9FczfjuzwFiq66SkHAkR3gYgfsuRdnmqIM2oGjRqRyB5kOacwJ ymVQqg08eLubdL21ffXiPqwmEJdxNPBoMYbJcYkt2gOMqteCymRNnEJZlhPZwdYQmGnz2bxg6Vvseuu5 ud0gKNWYwysirzXMqvAD+YGOBhPDBBTBlyf5I2xFDJ JwggPXRqMYI0DHIFMorPQZBA0bqoNkwy586AEMODmema2EOks4T7TaDtKVl++FvUzqtC8m7bwfdjEAH6 BLyw5Z4+Q8x4WuxtAxFpCEpqOm0PKhTBo5nTRV2dJU8MuhucugZBjnaYlgMadDVi2WQhvI9IT8F8ZMeK d5LUoxoZxcVmbFKZpOHgwUG7wqnVHhYXiE29Ni/Prabhakar [file] E+DQogICAgICAgICAgICAgICAgICAgICAgICAgICAg ICAgICAgICAgICAgICAgICAgICAgICAgICAgICAgICAgICAgICAgICAgICAgICAgICAgICAgICAgICAg ICAgICAgICAgICAgDQogICAgICAgICAgICAgICAgICAgICAgICAgICAgICAgICAgICAgICAgICAgICAg ICAgICAgICAgICAgICAgICAgICAgICAgICAgICAgIC AgICAgICAgICAgICAgICAgICAgICAgDQogICAgICAgICAgICAgICAgICAgICAgICAgICAgICAgICAgIC AgICAgICAgICAgICAgICAgICAgICAgICAgICAgICAgICAgICAgICAgICAgICAgICAgICAgICAgICAgIC AgICAgDQogICAgICAgICAgICAgICAgICAgICAgICAg ICAgICAgICAgICAgICAgICAgICAgICAgICAgICAgICAgICAgICAgICAgICAgICAgICAgICAgICAgICAg ICAgICAgICAgICAgICAgDQogICAgICAgICAgICAgICAgICAgICAgICAgICAgICAgICAgICAgICAgICAg ICAgICAgICAgICAgICAgICAgICAgICAgICAgICAgIC AgICAgICAgICAgICAgICAgICAgICAgICAgDQogICAgICAgICAgICAgICAgICAgICAgICAgICAgICAgIC AgICAgICAgICAgICAgICAgICAgICAgICAgICAgICAgICAgICAgICAgICAgICAgICAgICAgICAgICAgIC AgICAgICAgDQogICAgICAgICAgICAgICAgICAgICAg ICAgICAgICAgICAgICAgICAgICAgICAgICAgICAgICAgICAgICAgICAgICAgICAgICAgICAgICAgICAg ICAgICAgICAgICAgICAgICAgDQogICAgICAgICAgICAgICAgICAgICAgICAgICAgICAgICAgICAgICAg ICAgICAgICAgICAgICAgICAgICAgICAgICAgICAgIC AgICAgICAgICAgICAgICAgICAgICAgICAgICAgDQogICAgICAgICAgICAgICAgICAgICAgICAgICAgIC AgICAgICAgICAgICAgICAgICAgICAgICAgICAgICAgICAgICAgICAgICAgICAgICAgICAgICAgICAgIC AgICAgICAgICAgDQogICAgICAgICAgICAgICAgICAg ICAgICAgICAgICAgICAgICAgICAgICAgICAgICAgICAgICAgICAgICAgICAgICAgICAgICAgICAgICAg SRMqUWGlQHGmCZEzODMiNIHuPURyYWx2M9teFGMuGBFuDD9hSZx4Cb0+EUtSQgZeOOT0glBbgH8TIN8c t9ZcAGtwWRFkz6OcWEj5OQ1ZDRBhDQjoPC0JBDadyv 1NOXPcNHGzgWSFf3ieVhVjDCR0GKJgNhncVS9NTYWlA8lhjmHoXIBjULCRIZuyYBMZZTivSTLVUKDpXO XtLsYeYkOrSFBgLCDuYZVPUWX7EYAfHmYoSHCpDIHsZdNsNXOHMZGwKTHnUxPqPLSxBPFsWmzgQXUONS X3SRSlZlHhYCZbEOFdAjClFMEPLE7PMdVfO7IwmQ55 BIK7RMt+Mc8PUU9ms6GwERt2KHZyZL2aia5QCDbQBsPqW0AbflJ9YHP3JJWaPr0URMOsWYCtjVG4VDEr AGMOFiDrM0SiyN99KRNMYx1+NBmimtLvEwnNVuX8EVSfs8BxNVx9WU7XYKHcEHz9iKZjKMglU7eituxt WRT7eO9nuxfeLeypGRrooGDTHG2tUC0CHAN6LQOvPo N1TuNtJxWdWKR8XPWrDN6rYDbeSF2CSSQ5QMtlKQGgYEIbN5yFFjZdILLvBlIcvBcdIK5TBpFuX4Ssap VkcEG9WOZwCCAXXv8+KRkqljLfPmzKTrD8LKInb4WfWGx3NG1BGIFhKNopDJ0OOSEvkI2iMPinXG4XJr X9OyBwSHXEBmLcO07dcKWwPNe3N0RhCkCqVZTwLmce ZXMgPDwvTmFtZXMgWyBdDQogID4+ID4+VPruDF0WPVhfnpOnSMIbJs6DCROzHGTrPA0cKEKoFBTiL9F4 pHxmSQJNMiJxS5ytzvfuQG5nXWOtF959eWqwfcUyDOD3HSGoNu6UPRWaGEG1GCHpvHQsScSmFTKJPYbs ER2DhFWeTKV6xD0cEDnxVKNqSMByI9fPXaJyiDlyGA 51bGwgbnVsbCBdDQo+Do4DHW2kl1HlCWr1dcImXShaHZW7KCamBAGvTXCjNAAdWQI4XZC2JTDYPiZjJD ZgZPLgHKhnZYCaKVDybu7PQDLrVGL2BkViMNRwUXZwDZPuYAkgBXUbQMm7WrF6UUUzMVQkHI7ZWvUkAM RhQRVyQEghAGWxOAWrsb9PYPQsGKHiXHH6QWZwEUCi KMJcTQulHCDqNHH2Har8YEAaVRNaUS1ARtAaJLOeWHt2PvZoGLTsHRShuy9IRSTkEWHuBAMcGzPrMWZs ANCwZRtiBZPvXARaAum3VVEnGOIvNP0VLwPhTLBaQWH8CFVgBOIaTBHrkn2MAFNgOZRgYWdnSgPyHNCz EQVcZMszZOCrKTS4VIPcCSYyHLAoHO4BJrWtPYKfNd Y0LfmpWPXlIEFppe6PIMHrFGCjRBL7KWJnCKZdTYQaHRcwJWZzUZMrRlvjERIqVMSuMH8JHxQzYTMmAa W7UuJlHVNsNVJkll8RFNBuPESuReyiWnPwPMGmMRDqOCawDCOaGOJ0BGZuGHGiHKOuXX0YTtNdIVJoUg o1FMpdQKMjDOVmem9LCMFkMEPbOIdwSpLcRRXnVEJi RKwmBLSkIUTaDGO7RFHzTCTaUG0SNjJuESWgXiJpFSNvCWHuVIXvji4UKTUkAAJhJrYeFcBxXHNlONQg SFofBYGhVWI2BIK0IOCwLZAkCB6XNlMiTUKxQYVcLBohHSKiDLFkwp3ZSYDuHIL2GSN3RVPiVCYfGNZa LYugVJFkJOR0PDv1DNMiJCIqYG0TDwSpRPGdUSAoWW OlDBCqICYovg3DFZDoSSF9KvU8EqMcETKkWBCqNKvkPZVhMND7ZKsmKHPzKVPzEI7ORpRnXTUrLFNnSs avEODfLPMfnz4XLOBrDHA4AQF6PcEpTHKkKDXpINldMHItRNMdYDG1IWNsRLCeIJ2XHcLbVXDjCXAgCU FgOAUlQKWxyw2FZPFuGUI1UiIeTjWbPYYiZTGyAJsf ELNrKYPhJAq5HDTiZEZlNQ1SDsXyZMHxUZElRNXeRZMmMVLbpe6VUYMjALJ8POK3HBXtHRCeGJOaHRvs RDLjTNG2VBGySGWeMCEsET6BNuZcMWCqLXZ3SiFyGRIyFNYuzc2DQVMsVBV7UDG5OMFeMOAiBGNrCPst GNQhKVA7LSk1EODxRGNtFE0JNmObMXEoNOFeIvQmLQ PeIJKsrm6RBXQkXMX5CfL0YuSsQMIsWRHuCWliQRDdWDW8Xwp7IHUsIMSqCJ4CGtEzBEAdFil9MMRxIV KyZCCtrq8YSBWpHOX8SEAaIlQiULIiKHVdPYejWJOwDNT3HbQ5SUIaHVMrLN1RJwOkOAAjYcQpEyLsZU AjOIWesm0UJVCiIEG8WsW3WWUmNKQpKLMaJFtjYANn UXphNaBiWYSmTCZpRT8LQbDlIQNaFrHdWErcIZYdZGAyym3YSWVbQDE6ZFF9HMCuBPKcLOYfASszTBBl YCp3FgoqWZCmADXhWM3SExZsFGJuXhI8TJRrPIQrWJMrtj4KDWFdBWC8GRi3YTNwRPWtZYMsUZftMOYu QHa1VnJnAARoBKMjMG1KVpZwPGRsZaI2PCQzCHLqIV Ivuf4XQZQlHTP5HeZ8MZHzIXYyTSGnCQryBHNrVSi1BVItKREdTWGmSL0HCuJgCSTgPmdrQVRpGXHpQU Ewyk7EXMHcUIG2PnE1GtYlXXPoVXMfVYztSTFnSQd9IDU4KBVcDHViPA7ZOhTuXBDwSwg2DKBlOEFlJW Igyp3IEGOcMHH8NAN2AVSzBLLwCIGoSBxnCNTkPVi0 SaLvAXPyYVVlGU2WYuVfHZviQLPWIwh3NEwvY1j7KAN1Ap0TS8Dyz2MeScQuANZHUMrnMN0yqkHmEUWs Rm1JS3jJMinbLsH5HHR6UBQ3KMM0TiqhMVQyTSI6FeRaKIfzMOZpNT9mERFgCKA6KTCtKnM3Pot3PTU7 XCH3KysfFLHuKZS1CPNtQgErTX7WOt5EYjA2AJW4lXCvLw0JTep0WtKGEpWlIG9HZCn= ID Date Data Source [id number] 06/24/2021 07:29:55 AM [facility] Name Value Range Interpretation Code Description Data Paulina rce(s) Supporting Document(s) Mulga [Moles/volume] in Serum or Plasma 0.63 mmol/L 0.60-1.20 [facility] ID Date Data Source [id number] 06/24/2021 07:26:25 AM [facility] Name Value Range Interpretation Code Description Data Paulina rce(s) Supporting Document(s) Bicarbonate [Moles/volume] in Serum 27 mmol/L - [facility] Chloride [Moles/volume] in Serum or Plasma 107 mmol/L 98-107 [facility] Creatinine [Mass/volume] in Serum or Plasma 0.56 mg/dL 0.50-0.90 [facility] Glucose [Mass/volume] in Serum or Plasma 86 mg/dL 70-140 [facility] Potassium [Moles/volume] in Serum or Plasma 3.8 mmol/L 3.4-5.1 [facility] Sodium [Moles/volume] in Serum or Plasma 142 mmol/L 136-145 [facility] Urea nitrogen [Mass/volume] in Serum or Plasma 13 mg/dL 8-23 [facility] Anion gap 3 in Serum or Plasma 8 mmol/L 8-15 [facility] Osmolality of Serum or Plasma by calculation 293 mosm/kg 275-300 [facility] Creatinine/Urea nitrogen [Mass Ratio] in Serum or Plasma 23 [facility] Calcium [Mass/volume] in Serum or Plasma 9.3 mg/dL 8.6-10.0 [facility] Glomerular filtration rate/1.73 sq M pre dicted among non-blacks [Volume Rate/Area] in Serum or Plasma by Creatinine-based formula (MDRD) >6 0 [facility] Glomerular filtration rate/1.73 sq M pre dicted among blacks [Volume Rate/Area] in Serum or Plasma by Creatinine-based formula (MDRD) >60 [facility] ID Date Data Source [id number] 06/22/2021 11:26:28 AM [facility] Name Value Range Interpretation Code Description Data Paulina rce(s) Supporting Document(s) Calcidiol [Mass/volume] in Serum or Plasma 25 ng/mL >30 L [facility] ID Date Data Source [id number] 06/22/2021 04:01:47 PM [facility] Value Range Interpretation Code Description Data Paulina rce(s) Supporting Document(s) Hepatitis C virus Ab [Presence] in Serum or Plasma by Immuno assay Non Reactive [facility] No serological evidence of active infect ion. If recent exposure is suspected, test for HCV RNA. ID Date Data Source [id number] 06/22/2021 07:34:02 AM [facility] Value Range Interpretation Code Description Data Paulina rce(s) Supporting Document(s) Cholesterol [Mass/volume] in Serum or Plasma 177 mg/dL <200 [facility] Triglyceride [Mass/volume] in Serum or Plasma 119 mg/dL <150 [facility] Cholesterol in HDL [Mass/volume] in Serum or Plasma 74 mg/dL >50 [facility] Cholesterol in LDL [Mass/volume] in Serum or Plasma by calcu lation 79 mg/dL <100 [facility] Cholesterol in VLDL [Mass/volume] in Serum or Plasma by calc ulation 24 mg/dl 16-42 [facility] Cholesterol non HDL [Mass/volume] in Serum or Plasma 103 mg/dL <130 [facility] ID Date Data Source [id number] 06/22/2021 07:34:02 AM [facility] Value Range Interpretation Code Description Data Paulina rce(s) Supporting Document(s) Thyrotropin [Units/volume] in Serum or Plasma 4.090 u[IU]/mL 0.270-4. 200 [facility] ID Date Data Source [id number] 06/22/2021 07:06:02 AM [facility]T [facility] Name Value Range Interpretation Code Description Data Paulina rce(s) Supporting Document(s) Hemoglobin A1c/Hemoglobin.total in Blood by HPLC 5.1 % 4.0-6.0 [facility] Glucose mean value [Mass/volume] in Blood Estimated fr om glycated hemoglobin 100 mg/dL <126 [facility] ID Date Data Source [id number] 06/20/2021 07:46:41 PM EDT [facility] Name Value Range Interpretation Code Description Data Paulina rce(s) Supporting Document(s) History and Physical [facility] ATNBDt3zEoIPAiSf88/PXGisJEJgm8MlXTemMWy5UNheWIGaC8SkFBB9bM7wUOA7VEeVPwKbCgAxYLP8 lbm [file] AgICAgICAgICAgICAgICAgICAgICAgICAgICAgICAgICAgICAgICAgICAgICAgICAgICAgICAgICANCi AgICAgICAgICAgICAgICAgICAgICAgICAgICAgICAg ICAgICAgICAgICAgICAgICAgICAgICAgICAgICAgICAgICAgICAgICAgICAgICAgICAgICAgICAgICAg ICAgICAgICANCiAgICAgICAgICAgICAgICAgICAgICAgICAgICAgICAgICAgICAgICAgICAgICAgICAg ICAgICAgICAgICAgICAgICAgICAgICAgICAgICAgIC AgICAgICAgICAgICAgICAgICANCiAgICAgICAgICAgICAgICAgICAgICAgICAgICAgICAgICAgICAgIC AgICAgICAgICAgICAgICAgICAgICAgICAgICAgICAgICAgICAgICAgICAgICAgICAgICAgICAgICAgIC ANCiAgICAgICAgICAgICAgICAgICAgICAgICAgICAg ICAgICAgICAgICAgICAgICAgICAgICAgICAgICAgICAgICAgICAgICAgICAgICAgICAgICAgICAgICAg ICAgICAgICAgICANCiAgICAgICAgICAgICAgICAgICAgICAgICAgICAgICAgICAgICAgICAgICAgICAg ICAgICAgICAgICAgICAgICAgICAgICAgICAgICAgIC AgICAgICAgICAgICAgICAgICAgICANCiAgICAgICAgICAgICAgICAgICAgICAgICAgICAgICAgICAgIC AgICAgICAgICAgICAgICAgICAgICAgICAgICAgICAgICAgICAgICAgICAgICAgICAgICAgICAgICAgIC AgICANCiAgICAgICAgICAgICAgICAgICAgICAgICAg ICAgICAgICAgICAgICAgICAgICAgICAgICAgICAgICAgICAgICAgICAgICAgICAgICAgICAgICAgICAg ICAgICAgICAgICAgICANCiAgICAgICAgICAgICAgICAgICAgICAgICAgICAgICAgICAgICAgICAgICAg ICAgICAgICAgICAgICAgICAgICAgICAgICAgICAgIC AgICAgICAgICAgICAgICAgICAgICAgICANCiAgICAgICAgICAgICAgICAgICAgICAgICAgICAgICAgIC AgICAgICAgICAgICAgICAgICAgICAgICAgICAgICAgICAgICAgICAgICAgICAgICAgICAgICAgICAgIC AgICAgICANCjw/lBMaP8shhKIarnN5O2inYe4DLi7M PE2of5BgJNVkMJhotkAzSpkHPsUwFNUoTlxSGlc9DWlcMU4YxDPwH0LtN8YgNKyiFH3AJIDoFBRosPEx NXTnIUIoCrI7RFFsCAgnCF8AqVWbBPqvELHdRBOwVxFqAVHfVJAsJJCiXCVxGKDSVTLiOVIjWcHxYFBu IRAnGEiyDDUJAT4YWdMiL6NkhQ92TCvSVw7+DQplbm TkBgxNQaN3AZVkl9RzHJn3YR5ZOOTuZxovo0QaBETxREYZZKxmBG0GYWM2TVU1TNJvBi3OCNObK801ua DsCP9UNz5OEzXpDH9zas5YCKTnECUpJunLRxz4SSibYD0VgWZdTQbVZaLbKpjuRhXbPPKHAOUxYT5uAZ AiHSL5ISBCFWMclZHqHE8tQK8mMOQbSJA4KtRfWXQK IO8QSDBvNIVrjHAsSKYgXWTXSX4LEBtgGFH4ADAdolKynVRlNGxsUF4MVUMofyFnJCJgJNMMYLy+Pg0K TV2ul3JtJVj2KhTqQR3pfb9WODbGBsHqD0W1kWCiH7K0YBfsFe1ZDRLkWBVdYNVhFBREBYxrOB6AWL3w twO8NN1EaQSkSLMcHDTuiPJsQJq3L78fbMTzXWydZA 0KICA+Jennifer+Mu3CAWLiKHVfXONmMwNuFMXSWgQzN1XtV0SRd6AsX9TlKS82bSqnjyDoYWslBM2PGJ6jPI VfTUWKYH0RbBDehV9bvyE5EXJjYDBULzKsV50oiJNkGNJnOFV2NSXyEe2UDNQzF3HzqpXvvBhuquFzSD MsNIJYIT1LDAwggeNlsMIqhJpwIR38fKtnJB5ZRu7W ZgCqOD9ega7QhDGsHw6QPCB6EF6JYKXhQOYoKBKrEUV0BRZaOeSfGDywYUCeEEJaTSE2TDQxXACaEG4O LzEyZIBaYBjhLDgkEEIaZCWawc3DQSUaZKK7RDbsIbTjEPDiAIVoCEufOQYeHUHrLAO0GFKfRBBjIQ1E RzPaDOIgUJK1LPUdIDVgRTBiqs8WMSErVXLuJsu9AM EjDEOtNNDeGBneGLPyDCM1YTB8RBHqFWTyCP3UOhAkDDNsQGzxCKpbEVMxSSLyps8FQWPdUNSdSXy6Oa ZgWNUyDJNhWAemXECzZYKtUGL7JMJlBZOgPO1KRjPrUBHdOZS7XEIuVYMoZYWbgb6QSNXyGOAeWEl8CR WkGWQxGEHyPVwnXOJgGME9FoYuKKAyWTSmRJ6RNgJe ZMTyIKb3WPexAKIdEMSzmd6SPGAaAPBhLYP7SUJaJQGpAKZbKZicXBKzRFTgVsP8ZVVbVUFsWQ6BYtDw URYcUwI8NXYvOKTdULQjao8IVIKdLTSnTgu5BKYpYIQdFANbWYkaOJOeNWDoBHIyARHeFUVxBZ8TKaVj IAFiQtWtQMmjWQTvTJBvld2XVKGnMYCsTRNeJZIrPG OjMLPjWKzdXJUeUEI6FfldOREdHUZoND9FHmDeRSDbMtK6EDAsZGOtAOGmoo6QPGGvILYyDOY1IGEuRN MbPDOtTJtsYHOoNRY8KUX0HYPsEGYuKK4MMeVpLDAdUqjfEGOuWKWgIWIvfv1TQERcJMAuVrJ4LkPzBA OoYOEbOByeYFIiVZQ5IGSfSXIfZHWaEB7GViMrSILt Upj0PkusVXXnHYUnog4FUMNmOLT6QplpWtUzHZWdFKDyANzjRTAuJTIwKUL4DDCsGVIsOA1WOrWjQXSt TRZnPwRwATYwZCSfzh8WSINuPXD3QeDkKpNxXQYxIYDmTRidYZXqLGCdQoQ7MWLsJIRlGS3TEoPuLRVp ZFO9IRKbAMDcUTHdyg4BJGEuYDO9DZNuHFDsXODzUE TaBJgjXTClRHG4SrW8WJEbEMWhOE4QFnPdVEMvMISfKVHbVLLjKWUihz2UGIRzAUU8DHMkRTMeWECgYL ZkQKsoAMEzWMK9Abd2ZDNqFMKyAP6WNlZrXRVzLPI6PvUzHQGwLLPblm0YIWJpHEL6BndtTPGhKSMdVT GpAQscCOHzYLJ5QTm0PLCgJYCzYZ7FFnMzYGKzGNt0 PyLrXHGmPPRdye9GQBIyKRY2LMu5OGGuSFZyPXLzUYxkKZMqAXV7TNYkHPUxLANpUV0UIrBtAJNpEUtk KAMjCKVfVBAsix6WcLJulPejns6EEDsJEy2XaMkrAIT4IEbyPx4niRC2PoJfJQETIy1NwxRgVBQqCUHY EEycJNHpECIcXDQ6Szj9T5M1CHgeHEV2SCU0NTP4J2 ScZPS1Cpa5ZyI3LuBjZCIjUXL8Jpm9F9J6KIzgYYF8YOn9EQFqWozmJXK+SJ5yZCv+Py5Ig5GfmcQ1ey JiHRz1PCV1GK3BFEJQG1RIQi== ID Date Data Source [id number] 06/20/2021 04:21:35 PM EDT [facility] Name Value Range Interpretation Code Description Data Paulina rce(s) Supporting Document(s) History and Physical [facility] ALPWAc3nOnMZIzWa88/DDJgdCKBkg1UzSKxmVRr7ODipGQFaE2NvNQJ1pL5xCOL1CBjGSzCiWhVvDOV0 lbm [file] JOHN+XClqYLdmwGj5hDJwRWSaJo2RQTXlFMOdKZBzFO AgICAgICAgICAgICAgICAgICAgICAgICAgICAgICAgICAgICAgICAgICAgICAgICAgICAgICAgICAgIC FwGCLiBHDgAYXqDPNrJBLlGTRePQHzLRSmBJHiSE1LMLRwSRMnJYVkQKLiCGHkJPZgYIPhNTIhYFThOU AgICAgICAgICAgICAgICAgICAgICAgICAgICAgICAg RIYxPCRuJJNrMMJjOTBrAESlHBAkKVKyTYWdGJQmSAAkDYEzJCEkAK2VIYUiJLIxCNVdRHTdZBJlKRHc ICAgICAgICAgICAgICAgICAgICAgICAgICAgICAgICAgICAgICAgICAgICAgICAgICAgICAgICAgICAg ESZjMPVkQGScWXRfEZDbTYVrTZDuJO1ALGBlMFSxYT AgICAgICAgICAgICAgICAgICAgICAgICAgICAgICAgICAgICAgICAgICAgICAgICAgICAgICAgICAgIC CtMHFeJXVyFVNtLBTrXMDqUTVfPEUeXDHcSCBzGVHzKC7PPBOjWTSxTANdQOPkACVtVCVsVRKzPFPxAT AgICAgICAgICAgICAgICAgICAgICAgICAgICAgICAg QVRmIJBzUMCsEIMuPFSjSVEwMGHcKTBmWCQdFWCoYWVwWPUfBTQcPDStDG6AFHYjSPTqAAEqTIYxBGJg ICAgICAgICAgICAgICAgICAgICAgICAgICAgICAgICAgICAgICAgICAgICAgICAgICAgICAgICAgICAg LFAvPWYaWMBdGRQvLPDeVBZdBZFoKKPsTK9ATFWlOH AgICAgICAgICAgICAgICAgICAgICAgICAgICAgICAgICAgICAgICAgICAgICAgICAgICAgICAgICAgIC QmULWlTWKqJWFzOXFpVZAtOEQjHNHvEOTaOLRyAIAgXCZzPS2RBYXfRIHdQUHlEQJyFXYkNBDrIQRbIS AgICAgICAgICAgICAgICAgICAgICAgICAgICAgICAg AFZzPVSaUNRhMQMfMEJfFPSaKBSvVDMwSKOlKRNuBFCxROSlHGKhLTUvTJQeWN5GRBWxQASbJHOhYPAj ICAgICAgICAgICAgICAgICAgICAgICAgICAgICAgICAgICAgICAgICAgICAgICAgICAgICAgICAgICAg OWIcGSVzTEOjUYJkRTYnXRIbZKYtHYBeEPAqPR2LSQ AgICAgICAgICAgICAgICAgICAgICAgICAgICAgICAgICAgICAgICAgICAgICAgICAgICAgICAgICAgIC YpMPSkUDYhFGCeDHExTZNqHMOaIWOqDGPfQRZeXEUdVYDpPXIxJX5TGG80lBDlx8L5WWJbAL7bicv/Pg 7GYAtxysAxbJCzZQ1CMrGfER5grh8WVkJyUS6dav9F LPqMAxZcP9H5zOSuKTAgHNDWJbFvY85eLLgcKz80AOaxKKPfIlPiUPg5Bm4PVyPwI3itOVDpWnZ2SZTm ClZ1PWMdUsG7XBDkIqTjYNCgBXHgOXZkCFZGHMZ9JAStUaNjAQhxLH0Pu6KdyXY9YMf+Ds2LZV9ll1Fk BCjuBWGiEU3bex5KHSzZMsMgL7PxuqQ3KZS4ZKWkLz 8CNDTeBBOodDAaNEAqGVEDRrKgW1JguN97FLBNTn5+YCxpfwVhJwaIWaX8CLKdb2IaYAt1JV8VBXPpXT i8jJUdSBJXPLF7YXFeFT9hBMAOyYIsTCHvENBKARP6BNReSdW1DsDwVjZkRFp6TZouIJ0iQAfqQB1JVK J8DCetXCCcOMUsL3lFOiYeHFXlQuThxUfkMH7IBtWf A7QnwvYtiLPiUPSsBAUTRv9+UQtoefGnBlqCQcXnDYNjv6PuANa7MC7IBBHbGUxrMC6QORFddV2xIYsc PB5YNiJwAlNrZSLXVgYoB95klUMxISq1I4VeIjYtAFSvAzayHKUkIStbReQhXWPmVwFqZHjtIG3+ID4+ OOmmVI6ZZHeoqtJaDRViEy3JCNTgKFNoDI5mKMWfXR TiZ6Q4yDhlTOVZPqMeE8aopalpAY7zGQQvI801xLhbppWhDLH8BSGjMo5GPPDkHBQ1KXRhfNCnHoczKU MJIZomOW0DfXRxFHC6nM4fYNxwXWCeAOYrG2jVLsEatLxmOX12aHhwlvNvfDWnNBt+Sh5FUC4et6JoWA v3ymZnBJpiPUKmBJdmCWPaCTBpSXIfMEF9IVO3CWFY XlHoHKGqTQMlFGznQMVcLLLpsw1JQEOlOETaJaPaFUWgFCFyUUDhMDbbHCWdSWB4Ybz8HQWoAWKrHS0B YoEsGLDfTYMgQNgzBUJaFTMeww7TSFXiYHKlRfS3WdMtLGDqBQNpNVueLYRgFHNjWchgKRRoSMXxJL6F BrJsJKHpLUhaLWBfSXFtCROuet4ZEGRbTJVwYtZ0IA FgLUJdWNYpFPoeFAXwERNjZwZ2KGErJBTtJE3KLqHsDGYnDTO3WdfpGTVpFOMuoo2YPYPaCROxTqW9ZD XiETYbPYLoRVicIAZuXQHiVGB6GGMxNNTeED4YKtRdLRSoIZBjGcrhYWHpYTRblb3XYSKbWMQsQmOtGL QwHLLpNUAiWHhoJUMhZMA9BIX9HQYzYJMnWZ3JFcOd YFGxUVnoQdRrJHKbDPQhpo4ZKZQiRSXjNBk3ELJfCROqXPMaSKrfBJWfFZB1SGv9AQWbLUGhXQ0EUhRl NXXuRBmfSwJxOZLcONMulp7CSWEsZGAtWPUpBASnGIXuVILdVEbeWPOhNWRuYGRhLXCrLHTmOU0RZkTq TKNjBfF8WdGzGCScUQRigr6ZGEGxYHFeWFW9GRKnJR LcZLBwJEqvRKIcOOIgWDj5HTOuEJOmZV2FAyWbWIPnZoFtAlIzLPZvRFSlzc2NWUEwIXPzTnB0UTNtRM BqSNZjZRfgMNWtIRCaMhWbAITzIIZjHT1QOhRaTPXgJeY3BiNjYPHzLFUqgi2CDXZmPYWoMQSeYKHsKU DxUTSaVKmxTDRzYYR9GoD8QMPfCJMgKH2XYzAmPEEx VuGjUCDyJHPrIHNikx2DZHFnIALjIUF6WLGcJCElSIWcMEunXJKvULP7HrP1OSWkBIXeYR4WTnHaHTCi AeU1YLLcNCEkTCXlcb1LGVVaYAZqInycVnXnYNWsSYGzCCqxQJHwCXB2KVq8SPZzWJOrWV2NSbHpYLYl Dve4NpOwLWTzNEVssh9FWNDnTEGnBJktFtNyBWWuDM BjTShdWMBfIOO5JOm5OQWxTLXwGX9OMgAaXRTwFgwlBULzUHZzHJUaog7HkXXutModfi2GMAoPAo5ArZ icKHFrZNmaWn6bnTH9IVQoKMDGYb8NcjJgFVZrTXXRBIcwLWYlBPUjPAB8OtHhUUInPgO8SgPnIGmmDW MiCTz3WZS3ULNdMhZ4CDVaODtjYZVcMaA6MZy7HpDb NjJ7FCS9AaS8ChFxSQO+KP4xKGq+Oo5Vj4SwhuV3nxDnIVzcNQK7YI2LYPYYR6HBOn== ID Date Data Source [id number] 06/18/2021 11:19:00 AM EDT [facility] Name Value Range Interpretation Code Description Data Paulina rce(s) Supporting Document(s) SARS coronavirus 2 RNA [Presence] in Res piratory specimen by NIC with probe detection NEGATIVE [facility] This lab was ordered by [facility] a nd reported by [facility]. ID Date Data Source [id number] 04/29/2021 12:33:00 AM EDT [facility] Name Value Range Interpretation Code Description Data Paulina rce(s) Supporting Document(s) SARS coronavirus 2 RNA [Presence] in Res piratory specimen by NIC with probe detection NEGATIVE [facility] This lab was ordered by [facility] a nd reported by [facility]. ID Date Data Source [id number] 03/25/2021 05:54:29 PM EDT [facility] Name Value Range Interpretation Code Description Data Paulina rce(s) Supporting Document(s) Progress Note [facility] ADJBEr4nYwOEUoWe64/FFHpzEQOqa5EfLMfbZDl8OBugRQGfB9UoMYZ5pK0eAQL4YBwWWiThNgPdZhV7 [facility] [place] [file] ICAgICAgICAgICAgICAgICAgICAgICAgICAgICAgICAgICAgICAgICAgICAgICAgICAgICAgICAgICAg IDMuNETsDCJfPTNqMTTvDJSuSBMtEJYqWENnTKLmQXKfPRRuDYHzTO5TCKIzLWBmRCOnTRXoYJVpUFUa ICAgICAgICAgICAgICAgICAgICAgICAgICAgICAgIC NjTQGnBILnDLGgGXZfSFWrAKWxMCSgZDYgNNEkHSKfWWEsTQWtNLNfBLCuOFWeTDFuSW7QKOJpUJPkRV AgICAgICAgICAgICAgICAgICAgICAgICAgICAgICAgICAgICAgICAgICAgICAgICAgICAgICAgICAgIC AgICAgICAgICAgICAgICAgICAgICAgICAgICAgICAg BD8DGMTuLANsUKDgHHBrKVWdQWKqAXPhAORuSAAkMTRfJRPkBVDxGHIvMLXyOUZcWAByZXAfPDVdLQAq EQWhTCGiUANmQREiZAEmBHQhTICnNXGgOAQpYVBuWBBtAHYrCUCfLUOeLT2LPWHzAIFwZAPqJQWuXPZh ICAgICAgICAgICAgICAgICAgICAgICAgICAgICAgIC SyFFEzDHDoHIHxGKIoTSMcKDFaDTLdJRJeTACdUSKyVDSzNRXmYYVeLGXuPQMyFCElIMGfJY3SNNCrBK AgICAgICAgICAgICAgICAgICAgICAgICAgICAgICAgICAgICAgICAgICAgICAgICAgICAgICAgICAgIC AgICAgICAgICAgICAgICAgICAgICAgICAgICAgICAg VHHhPG6NKPViZNJhAOWrTLCtLGOnZTPbVGWaYVYyCTPvWTFtBCHlUUHsAHGrNDDoEBVnQEYyXCTiQKFg UXRpDUKoEJRzMTHlULDjXSYtRKQvTQTsLKErVLNmATGrUNIjUIQlUQQfZJPwOF9ATLEsDDZoFVYbURIb ICAgICAgICAgICAgICAgICAgICAgICAgICAgICAgIC YqWRDpWNXvFJXsIBTlPEEiCCPaMNPvUXKiZRDdRLRlCUOzYNJzZCGsOPXgYEGlWRSaQQWeJRUdLP1UWZ AgICAgICAgICAgICAgICAgICAgICAgICAgICAgICAgICAgICAgICAgICAgICAgICAgICAgICAgICAgIC AgICAgICAgICAgICAgICAgICAgICAgICAgICAgICAg OKFwAXMwIK3NMJBrBRFqBTYoUFKtGSFlLINhWMNdAAUyWLGyBRKyKBCoYLZmXBGfPSMrTLZxCJDpKXYp KOCqRENxIAQxAFGhCKHjORIgPQFbVLMzAPChGXMbHEHeDPVuZVXjOSUrJVQhINCyIU8XAA10oIAuw0Q3 YSVfCX4rmqp/Mw1YLJxsbeAbcQJsIM6JDkRyVL2zkz 2LXeWmEI5jpg9XKJpWYjFkH9R8yTAjRMSxYYERGbMmM47nCXfdXv67CHjbQLKjAvYmHGn9Wb5ACpZtZ6 zbGLElAdO5IVHtDcO5RNQyGeL3HASmEkFjBYOyOTBsGOKsYYCXJMB0DGHsJhPlTgIdDBTjANzxHPGMSL 7YRjDfU4HvlO81QTvRKm7+DQplbmRvYmoNCjMzIDAg i3XmXJt6NP9EOFLfBkalr0FuBqVoRIAXCDlgXR0ZSFH8YUO8IMQdDg3GRYDcR475ihEcTB1WQe9MUtGg WV0snm1BUjHqQTDjFmvSUbc0FDypAN4TqOXxOJeYek2useAvinOYq2DwraYeeSSSk07yAaC9lPVjWPmm HZApBFPdVk8aNo1vEHQrNXW6XnDjRLVLHY5HTJZaKM GzaTNkEVQqNDJSVN0GNEgbOMX7QORwgaKltVEcKEwcDO4JKGKtrsOwFbNgWADDIVo+Ba0MLK3ov3NbQC seUVSxHV3fto5RBAoWSzUbP5Y1cSHkT3B0WOlaYa9QPOQvRUCvTrBzMFQJKHugGT0NQM6mzbZ5YM0WvZ MpUUFmRIXbqNNmETe0H51ekBNvJSvzCG8RKMZ+Jennifer+ Ce0MALYwEIFhMROsIlOjLOPEJwYpY2VvC7WEa1KmK6YdTA73wSemqxPkBDinRD3PKQ8mVZQyOPYHQL8T sABjgG2qgcZnKhQjCVTPPmRtX34ijBZyPSPfCQGaBBOwXz6WDZTxP6BbhfEwcFikgyLqFTKrYJTOMJ9O AWyoxuCeqKVmkPmdYA84gKchLU8RMh6UFbThPB0xgi 9DrFVlIy3WXTZdLd4KPZAdVCTfPHBeVCM4IASlNwNeLLyeKIJgQOEsTUK0YVBnIJWsBR7KBsGgLEOiGo ysJgbmHTSqLJUsdw9ZSHLqVTKwZJl0GvAwXNVnJFRbCKmmEZRxBOJgFAT9YRBpVUNkZX7CGkXiHDYkDV P1TSasEVOoSPTwgp9LRASwONSjDFJtWZVlUYKzTUFb QHvjIDVoLMF3NEc5BMEdGKRkKU4WYpHdDGGyVHwbDkuoYQQmUIJyib6TROZbALOhFFA5IMKvDDFnJATo WWjyKVDnXRNzCoh6ETMgWESgFJ7ONlGmSCMsQAX4WEBiZBDtVLOajb2FWLNrXBIcIdj1NDArOOMfFGCs EKewKVSqTBA2DHpwAOOuXYClEU2FVwBhEDRaDXVtXI UjYECuBFPfpo7SVWRrOJAkKMQ4PTLjOHHsISCbKKctTKKgFGZ9PSn9FVMhSPStJL9LPyMkGJGgVgFfOB TnLEYfBOLxvk2AMWKcKUWuYcF8ERWkBQPrALKxCWizVQAlWHAhZEKsGAIbFDOaIZ3XZkLiYDHaWqFkBC TjRBLiJBQcbe4CTDKoYWVkEJNuLqXeUAKlVNPgSUfh WIAjYKM6GaNnJNIaKIQaGG4HHgQsGKPmHvPpUBYwPRVoPOGaqo4GIEZqASXmYCW4BEJxHOLqMOPzTGju LTBdSDY3LBJ6BZTjNWRkSV5SUvAuCKTpNvN5EHNmGDMxWPKemf3UTVCvUBMoGeC7HCVkUBGqJBDkZJnf MIUeMYV4JXVoKKNsTLJaAK5LWuCxCIZuOie1LOmlVT WqRMNvzm4GLEOwCAXjRti9YJFwDJRgJJAbOJvxXVBbMJB6FNL8CULcMVAeFQ8TWiNlKXWoQic7IPBqEC QiTRZawy9ZAENzHSGiPDs4FCMpEPRoUHRvUQhiMGWaJGObWIUfOVQaUWYjCD0NFqHrDBZrISBoRNdpXB LlBSGqsh7NiNCwwOqbur7UQLnKNa5BhFglDZS4PWhz Ym5lbCQhOASsVDFDAv5EonSrKXSkHWNIPPliKFSeVMA1VvNqFUDhMqZjUSD4S0Q3OsmgX7GlXnw4JaPz YyDdKnA5CBm2ZuTfLZGnXQP7SbYuSNFhWEQdFfTlQJU8EyW4NBE+GE5tKWo+Yi1Kg3AtxjE7evIxYUc9 IYO2Zc8TRQLFF0BJGo== ID Date Data Source [id number] 12/12/2020 04:46:15 PM EDT [facility] Name Value Range Interpretation Code Description Data Paulina rce(s) Supporting Document(s) Progress Note [facility] JNAIHy6aAuFZUpFi01/ZHMvfSNDgc5GpUAifGZy3YCebDEXgO3HyADJ3dL9zYHU3CZsWLdGlAhBtJLA3 lbm [file] ICAgICAgICAgICAgICAgICAgICAgICAgICAgICAgICAgICAgICAgICAgICAgICAgICAgICAgICAgICAg ICAgICAgICAgICAgICAgICAgICAgICAgDQogICAgIC AgICAgICAgICAgICAgICAgICAgICAgICAgICAgICAgICAgICAgICAgICAgICAgICAgICAgICAgICAgIC AgICAgICAgICAgICAgICAgICAgICAgICAgICAgICAgICAgDQogICAgICAgICAgICAgICAgICAgICAgIC AgICAgICAgICAgICAgICAgICAgICAgICAgICAgICAg ICAgICAgICAgICAgICAgICAgICAgICAgICAgICAgICAgICAgICAgICAgICAgDQogICAgICAgICAgICAg ICAgICAgICAgICAgICAgICAgICAgICAgICAgICAgICAgICAgICAgICAgICAgICAgICAgICAgICAgICAg ICAgICAgICAgICAgICAgICAgICAgICAgICAgDQogIC AgICAgICAgICAgICAgICAgICAgICAgICAgICAgICAgICAgICAgICAgICAgICAgICAgICAgICAgICAgIC AgICAgICAgICAgICAgICAgICAgICAgICAgICAgICAgICAgICAgDQogICAgICAgICAgICAgICAgICAgIC AgICAgICAgICAgICAgICAgICAgICAgICAgICAgICAg ICAgICAgICAgICAgICAgICAgICAgICAgICAgICAgICAgICAgICAgICAgICAgICAgDQogICAgICAgICAg ICAgICAgICAgICAgICAgICAgICAgICAgICAgICAgICAgICAgICAgICAgICAgICAgICAgICAgICAgICAg ICAgICAgICAgICAgICAgICAgICAgICAgICAgICAgDQ ogICAgICAgICAgICAgICAgICAgICAgICAgICAgICAgICAgICAgICAgICAgICAgICAgICAgICAgICAgIC AgICAgICAgICAgICAgICAgICAgICAgICAgICAgICAgICAgICAgICAgDQogICAgICAgICAgICAgICAgIC AgICAgICAgICAgICAgICAgICAgICAgICAgICAgICAg ICAgICAgICAgICAgICAgICAgICAgICAgICAgICAgICAgICAgICAgICAgICAgICAgICAgDQogICAgICAg ICAgICAgICAgICAgICAgICAgICAgICAgICAgICAgICAgICAgICAgICAgICAgICAgICAgICAgICAgICAg ICAgICAgICAgICAgICAgICAgICAgICAgICAgICAgIC YgCKf7R4bbPRXmAUCzVP3sTSb3Zj3+BBeMYyIcEWJ0vmPnkG7CZK1yz5MfIGzoUKNhk0IbGCs5MQ3TNT CpPNllQZ3EQVvdhy8TSJCsWIEvmYLJj5smIhFwBAI7CIDhTdbzSA8CYCLmI3vawiPsPGZhXVPBEMpgLH BSIDkgMCBSIDExIDAgUiAxMyAwIFIgMTUgMCBSIDE3 QPAaInMnMZUiLLNwLO0DTTZfU976muQlDV2LZv4OPhMnIM7lsh8SNkNySOAkHzaYRlg1HMmfJT9VzFZr yHMvPDIsFBCWHlEhL7cmr7JpEwHpZDKRWYvuFN1Yd9TwcLXbLSr+Aw2HGP9gp2ZsNAzpMSMwMY0ujm7U FMuDXwVfJ2TpmTqnTKNml0qoNTJeWT2svKBpMWT4CW ibgOPTODBbGU0hNXLWYMQdiAJ9EjUsShBhKEVjEedrRAMHZKgQHbXrH6Ldt0YgReY3AQLoQwCgSVdxOA YbJkL0IT09xXqsDG6EGQDsKYUrMD22ZVPqDNQdCp0DAa1JPnTvJE3oph5WSsXxGEAwCznRWfb4YCpeJL 0UiZKlO9CnsUXxq7wBDcXtS5FNBCVwSRGpNu3TEWSp FcBrNEJfUPggYH4fTUWdUIIPoFkdymE1NK9AIV0ornVvFZ9FKdXwUj2kLk6HKzKxH8FlI7TgJXAiZZKE KMxcLA6LDQtgSV8gVQ0Hn8DEjGPeoO2olw3DDEGfKOJtUwxwaw8TWvpqW0N4eLjnBMXbZpSpAKGVDSae HR4SNOLrDAV2MKSmQyVuOJCGRiDiX39cEW6ZH5Dhb4 1iUeA6NKLrBkIfEWnmTT40lCkuhgFzyIKqgSioMP4NIa8+DQplbmRvYmoNCnhyZWYNCjAgMzYNCjAwMD VxHLVmKQZsArX7KaPmFh4ZNTVrVMPaUKWlKlKcUEOlTRMaEJwxOXJtCDA6RAS7BGPmCJZnCA1DVkLzYW WbLxm5TVuzBYUfDICefd4IULYlWQPfYZN5YgCzEPLk SLQbXVkfTCZhHHWeMfEpKRZrPXHdJG1QJeUwDFUfJTV4PAJtJOOrVRGrhn8SLULpKTZtZcwpZMMePIVu DWRxMOqqTBTrKBR3WDUbCOWnMFDpRZ2VMvNoHURzXYr6BPKmTQMgGJVkzl5VZATyUQOtNLNpZJToJAVv CYGqQAieLOShPLOaUAG2IZDdGTMhGR0QTiBqEYMrYP A6UkOwCHQeKAUsxw9CIQAwQEPtIGS6ZYXcBOPrHMTdVGhfDENtAGE8FAY1SIWfBONrJW0LCeQgWGPuME khMVWbFROwVCAxta5BCYRqKAOwLZU9DuDoIDApELXvSQtfUDVaYLDhEVu5REYuZYUrZT2GEpJmQPTqBv G4MNWxGYCsREXsea3BAWUeDZQmNmJ3USQvCALqOHNa QMkfXWBzPPIkVek2VGKrAARuZO3LAfIdHMJmHlQ0SOouJCQpERMwbw3OHBXrTZMiWut8FNFvSHAmTNPz GNugOMVwUQX9PMX4QBMqINKoHK6EJsYpDARfCbKmGJSbHVNcQTVtnw6CBPLcRVNpEAS2UYMfTEIhSDJf BQtqXJPlYUG9GEt4BGZwEHPjYB9EHqDsWTExQgS1ML PeOYMeITZdkd9BQFUgPNRcYqY6VAPnGXOtUHYtNCsqDHTiNLX6RVDwUBHvCAAaKA7NSvYlYHGqShb6DU QiHCSlLHDilj3CXQSbYQTjPgy2GyFzRIFvMEYbYQmdMXNfZDE1CfH6UUOuIBGwZA0XYiBtZTJtPjo4Tg CoDJYmNASake6RWFUqAHBxCXypTtIlACCaJMWnVKii ZOOkGCY1PFJ8YSXrVVBdDH1ZJfOnRShcLLMIElr6NEvbR0b9VNOkCm7LE3Wid8HeWqRxXXSOTEiuME6e anXtEARjHx7OB6lYCekvNZE7PTZxCWRpWtX4XpaaApvuH8ViCLEmWiJsQFY2HA9lTID2BfFeSUBqCYRf DpzbSBSwIAQgZoC9DdD7AEBfSdS0LcBgYK2QUt8AMpB4LHJ0vBTeRw9FFHWmXMXBMaAyTT8JFTh= ID Date Data Source [id number] 10/30/2020 12:00:00 AM EST [facility] Carlos Miller MD Patient Name: NIGEL [id number] [facility] Date of : 1960[place] [address] Date of Exam: 10/30/2020#: Fax: [phone] EXAM: [...] rce(s) Supporting Document(s) ID Date Data Source [id number] 10/30/2020 12:00:00 AM EST [facility] Carlos Miller MD Patient Name: NIGEL [id number] [facility] Date of : 1960[place] [address] Date of Exam: 10/30/2020#: Fax: [phone] EXAM: [...] D 25-HYDROXY 10/08/2020 12:00:00 AM EST eCW1 ([facility]) Name Value Range Interpretation Code Description Data Paulina rce(s) Supporting Document(s) 26.2 30.0-100.0 TOTAL 25(OH) VITAMIN D eC W1 ([facility]) ID Date Data Source TSH 10/08/2020 12:00:00 AM EST eCW1 ([facility]) Name Value Range Interpretation Code Description Data Paulina rce(s) Supporting Document(s) 4.340 0.358-3.740 THYROID STIMULATING HORM ONE eCW1 ([facility]) ID Date Data Source LIPID PANEL (CARDIAC RISK) 10/08/2020 12:00:00 AM EST eCW1 ( [facility]) Name Value Range Interpretation Code Description Data Paulina rce(s) Supporting Document(s) Cholesterol in HDL [Moles/volume] in Serum or Plasma 68 >40 HDL CHOLESTEROL eCW1 ([facility]) Triglyceride [Mass/volume] in Serum or Plasma by calculation 191 <150 TRIGLYCERIDES LEVEL eCW1 ([facility]) Cholesterol [Moles/volume] in Serum or Plasma 208 <200 CHOLESTEROL LEVEL eCW1 ([facility]) 140 NON-HDL-C eCW1 ([facility]) 3.058 <5 CHOLESTEROL RISK RATIO eCW1 ([facility]) Cholesterol in LDL [Mass/volume] in Serum or Plasma by calculation 102 <100 LDL CHOLESTEROL eCW1 ([facility]) ID Date Data Source Comprehensive Metabolic Profile (CMP) 10/08/2020 12:00:00 AM EST eCW1 ([facility]) Name Value Range Interpretation Code Description Data Paulina rce(s) Supporting Document(s) 0.76 0.55-1.30 CREATININE FOR GFR eCW1 ([facility]) 87 70-100 GLUCOSE, FASTING eCW1 ([facility]) 14 7-18 BLOOD UREA NITROGEN eCW1 ([facility]) 3.8 3.5-5.1 POTASSIUM SERUM eCW1 ([facility]) 102 98-107 CHLORIDE LEVEL eCW1 ([facility]) > 60.0 >45 GLOMERULAR FILTRATION RATE eCW 1 ([facility]) 141 136-145 SODIUM LEVEL eCW1 ([facility]) 10.0 8.8-10.2 CALCIUM LEVEL eCW1 ([facility]) 32 21-32 CARBON DIOXIDE LEVEL eCW1 ([facility]) 19 7-37 AST/SGOT eCW1 ([facility]) 28 12-78 ALT/SGPT eCW1 ([facility]) 133 45-117 ALKALINE PHOSPHATASE eCW1 ([facility]) 0.3 0.2-1.0 BILIRUBIN,TOTAL eCW1 ([facility]) 7.5 6.4-8.2 TOTAL PROTEIN eCW1 ([facility]) 1.0 1.2-2.2 ALBUMIN/GLOBULIN RATIO eCW1 ([facility] hospital) 3.8 3.2-5.2 ALBUMIN eCW1 ([facility]) ID Date Data Source [id number] 06/10/2020 09:13:13 AM [facility] Name Value Range Interpretation Code Description Data Paulina rce(s) Supporting Document(s) Progress Note [facility] RTBDRv8zCyLRCrTe68/OEDatGFTvk8VwZAxqHJf1RUtfPEYsV3FjUOV2cA7hGSX6SVlSVsHxJiGrICJ6 lbm [file] fRsx/btF7f9NruRmpWZHtzRBXgVGGEcAhZHKXlUUT58xFVnPC/gewAfw85eZPi/Sofía+NsboK7Sy9/Vlb ju13ryhVA1O+Pvmb3/lrT38NX/0gH0zK9RHF5ab7UnSUOnXCtrsmMfSamEHjMgCGCsf2XpNWzaUYl5FP lbYRTeI8H6sHOcXYMbHZ0ABZHpEL7VVNYcexVrFyQm VCNVWtNfBFNrVmJel2JbI1ZqJDCaBCJNLKbvYEJyF08sMGkoGb97AIcrEBKxIzGvZCf3Iz3PScPqLDHt B68wqMIyuJGePGYxTPESLUqtYAVwL4avt3UeBGh2KX3XZH3FmgPdd0TyjjDpC9vaB5XITF8MZMWuT7AV M5QaM0bgAhQsh3DrI4ceSmRdh1WwUi5CEnOtSo5LLt XdQA4ktp9NCAKiNJFyLimVTwCoKRwwAlnfoQAdRX5OwZR5GHJaG73oRDReFWZgJ0DiBBTfEyp+Pg0KIC WezYUvDT9AWsoG5P0vp5zQEa9+gP9ZeN52WAbl8kBbNtPt3npUV2cMXt9S5v+1RGoubWHh1MH5c/1RfE ka8xrHZjv0L/lCJAqX5WougBd8x+U49Z/jqJVBdQ4b aS2tp59T2ZxbbG/+rqz34kqch4yh4Jp596vfY1E+mk4L5/ie6obzWYaj9Nnb60poYM4bnjflo/HH9Cyf p0W+mI+PLo+LzX+0w1TEpVDefuNqnLk3fBKjB9vkK9/79H5YD45y1gnvQ1QcAO3Nx5uIAZgBD7lgRpSX Zx++addi/Lmw8stsoeOVMawpSa9PpKLsFHVgj+tVqve Yis0LlmJsCJBPSEDfZCwC7Iih2tb/YvpoiOFOKAZtzRhCaIfQoCi/ib11rgprlR7HBC/vYGkCIi1PFTK wZQiAo5dmPLrln8ErauzHdwrSth+Prabhakar/SKIenLYm0ms3JOEv3b5FBoTA5pIG6BqBdCCjc0TJb8SDxU2H [file] YNCg== ID Date Data Source PAP REQUEST FOR SERVICE 06/09/2020 12:52:46 PM EDT eCW1 ([facility]) Name Value Range Interpretation Code Description Data Paulina rce(s) Supporting Document(s) Laboratory studies (set) PAP REQUEST FOR SERVICE eCW1 ([facility]) ID Date Data Source [facility] Hema Screening Bilateral (Ultrasound if Indicated ) (3D Mammo) 06/09/2020 10:51:08 AM EDT eCW1 ([facility]) Name Value Range Interpretation Code Description Data Paulina rce(s) Supporting Document(s) [facility] Hema Screening Bilat eral (Ultrasound if Indicated) (3D Mammo) eCW1 ([facility]) ID Date Data Source [id number] 05/13/2020 08:45:51 AM EDT [facility] Patient History Medical History:Hip repl acement 2018 leftacid reflux disease arthrisits thyroid conditionMental health issues Family History:Social/Personal History: Smoking Status: never smokerCurrent Problems: Other and unspecified diseases of the oral soft tissues (ICD-528.9) (DSA29-K36.89)Current Medications: AMOXICILLIN 500 MG CAPS (AMOXICILLIN) 4 [...] alfonso (May 13 2020 9:43AM): [facility]- no changescc-I keep getting sores which [...] Never Smoker completed Never S moker eCW1 ([facility]) Smoking 07/01/2021 12:00:00 AM EDT Never Smoker completed Never S moker eCW1 ([facility]) Smoking 07/01/2021 12:00:00 AM EDT Never Smoker completed Never S moker eCW1 ([facility]) Smoking 07/01/2021 12:00:00 AM EDT Never Smoker completed Never S moker eCW1 ([facility]) Smoking 06/29/2021 12:00:00 AM EDT Unknown if ever smoked comp leted Unknown if ever smoked [facility] ([facility]) Smoking 06/16/2021 12:00:00 AM EDT Unknown if ever smoked comp leted Unknown if ever smoked [facility] ([facility]) Smoking 06/11/2021 12:00:00 AM EDT Unknown if ever smoked comp leted Unknown if ever smoked [facility] ([facility]) Smoking 05/25/2021 12:00:00 AM EDT Never Smoker completed Never S moker eCW1 ([facility]) Smoking 05/25/2021 12:00:00 AM EDT Never Smoker completed Never S moker eCW1 ([facility]) Smoking 05/25/2021 12:00:00 AM EDT Never Smoker completed Never S moker eCW1 ([facility]) Smoking 05/25/2021 12:00:00 AM EDT Never Smoker completed Never S moker eCW1 ([facility]) Smoking 05/25/2021 12:00:00 AM EDT Never Smoker completed Never S moker eCW1 ([facility]) Smoking 05/25/2021 12:00:00 AM EDT Never Smoker completed Never S moker eCW1 ([facility]) Smoking 05/25/2021 12:00:00 AM EDT Never Smoker completed Never S moker eCW1 ([facility]) Smoking 05/20/2021 12:00:00 AM EDT Unknown if ever smoked comp leted Unknown if ever smoked [facility] ([facility]) Smoking 04/29/2021 12:00:00 AM EDT Unknown if ever smoked comp leted Unknown if ever smoked [facility] ([facility]) Smoking 04/26/2021 12:00:00 AM EDT Never Smoker completed Never S moker eCW1 ([facility]) Smoking 04/26/2021 12:00:00 AM EDT Never Smoker completed Never S moker eCW1 ([facility]) Smoking 04/26/2021 12:00:00 AM EDT Never Smoker completed Never S moker eCW1 ([facility]) Smoking 04/26/2021 12:00:00 AM EDT Never Smoker completed Never S moker eCW1 ([facility]) Smoking 04/26/2021 12:00:00 AM EDT Never Smoker completed Never S moker eCW1 ([facility]) Smoking 04/14/2021 12:00:00 AM EDT Unknown if ever smoked comp leted Unknown if ever smoked [facility] ([facility]) Smoking 03/26/2021 12:00:00 AM EDT Unknown if ever smoked comp leted Unknown if ever smoked [facility] ([facility]) Alcohol intake 03/25/2021 12:00:00 AM EDT Current non-d kenan of alcohol (finding) completed Current non-drinker of alcohol (finding) [facility] Tobacco use and exposure 03/25/2021 12:00:00 AM EDT Never used co mpleted Never used [facility] Smoking 03/25/2021 12:00:00 AM EDT Never smoker completed Never s [facility] Smoking 03/10/2021 12:00:00 AM EDT Never Smoker completed Never S moker eCW1 ([facility]) Smoking 03/10/2021 12:00:00 AM EDT Never Smoker completed Never S moker eCW1 ([facility]) Smoking 03/10/2021 12:00:00 AM EDT Never Smoker completed Never S moker eCW1 ([facility]) Smoking 03/03/2021 12:00:00 AM EDT Non Smoker completed Non Smoke r [facility] ([facility]) Smoking 12/23/2020 12:00:00 AM EDT Unknown if ever smoked comp leted Unknown if ever smoked [facility] ([facility]) Smoking 12/21/2020 12:00:00 AM EDT Unknown if ever smoked comp leted Unknown if ever smoked [facility] ([facility]) Alcohol intake 12/12/2020 12:00:00 AM EDT Current non-d kenan of alcohol (finding) completed Current non-drinker of alcohol (finding) [facility] Smoking 11/27/2020 12:00:00 AM EDT Unknown if ever smoked comp leted Unknown if ever smoked [facility] ([facility] Smoking 11/10/2020 12:00:00 AM EDT Unknown if ever smoked comp leted Unknown if ever smoked [facility] ([facility]) Smoking 10/23/2020 12:00:00 AM EST Unknown if ever smoked comp leted Unknown if ever smoked [facility] ([facility]) Smoking 10/07/2020 12:00:00 AM EST Never Smoker completed Never S moker eCW1 ([facility]) Smoking 10/07/2020 12:00:00 AM EST Never Smoker completed Never S moker eCW1 ([facility]) Smoking 10/07/2020 12:00:00 AM EST Never Smoker completed Never S moker eCW1 ([facility]) Smoking 10/07/2020 12:00:00 AM EST Never Smoker completed Never S moker eCW1 ([facility]) Smoking 10/07/2020 12:00:00 AM EST Never Smoker completed Never S moker eCW1 ([facility]) Smoking 10/07/2020 12:00:00 AM EST Never Smoker completed Never S moker eCW1 ([facility]) Smoking 10/07/2020 12:00:00 AM EST Never Smoker completed Never S moker eCW1 ([facility]) Smoking 10/07/2020 12:00:00 AM EST Never Smoker completed Never S moker eCW1 ([facility]) Smoking 10/07/2020 12:00:00 AM EST Never Smoker completed Never S moker eCW1 ([facility]) Smoking 10/07/2020 12:00:00 AM EST Never Smoker completed Never S moker eCW1 ([facility]) Smoking 10/07/2020 12:00:00 AM EST Never Smoker completed Never S moker eCW1 ([facility]) Smoking 10/07/2020 12:00:00 AM EST Never Smoker completed Never S moker eCW1 ([facility]) Smoking 10/07/2020 12:00:00 AM EST Never Smoker completed Never S moker eCW1 ([facility]) Smoking 10/07/2020 12:00:00 AM EST Never Smoker completed Never S moker eCW1 ([facility]) Smoking 10/07/2020 12:00:00 AM EST Never Smoker completed Never S moker eCW1 ([facility]) Smoking 10/07/2020 12:00:00 AM EST Never Smoker completed Never S moker eCW1 ([facility]) Smoking 10/07/2020 12:00:00 AM EST Never Smoker completed Never S moker eCW1 ([facility]) Smoking 10/07/2020 12:00:00 AM EST Never Smoker completed Never S moker eCW1 ([facility]) Smoking 10/05/2020 12:00:00 AM EST Unknown if ever smoked comp leted Unknown if ever smoked [facility] ([facility]) Smoking 09/16/2020 12:00:00 AM EST Unknown if ever smoked comp leted Unknown if ever smoked [facility] ([facility]) Smoking 08/27/2020 12:00:00 AM EST Unknown if ever smoked comp leted Unknown if ever smoked [facility] ([facility]) Smoking 08/07/2020 12:00:00 AM EST Unknown if ever smoked comp leted Unknown if ever smoked [facility] ([facility]) Smoking 08/05/2020 12:00:00 AM EST Unknown if ever smoked comp leted Unknown if ever smoked [facility] ([facility]) Smoking 06/29/2020 12:00:00 AM EST Unknown if ever smoked comp leted Unknown if ever smoked [facility] ([facility]) Smoking 06/26/2020 12:00:00 AM EDT Unknown if ever smoked comp leted Unknown if ever smoked [facility] ([facility]) Smoking 06/16/2020 12:00:00 AM EDT Never Smoker completed Never S moker eCW1 ([facility]) Smoking 06/16/2020 12:00:00 AM EDT Never Smoker completed Never S moker eCW1 ([facility]) Smoking 06/16/2020 12:00:00 AM EDT Never Smoker completed Never S moker eCW1 ([facility]) Smoking 06/16/2020 12:00:00 AM EDT Never Smoker completed Never S moker eCW1 ([facility]) Smoking 06/16/2020 12:00:00 AM EDT Never Smoker completed Never S moker eCW1 ([facility]) Smoking 06/16/2020 12:00:00 AM EDT Never Smoker completed Never S moker eCW1 ([facility]) Smoking 06/16/2020 12:00:00 AM EDT Never Smoker completed Never S moker eCW1 ([facility]) Smoking 06/16/2020 12:00:00 AM EDT Never Smoker completed Never S moker eCW1 ([facility]) Smoking 06/16/2020 12:00:00 AM EDT Never Smoker completed Never S moker eCW1 ([facility]) Smoking 06/16/2020 12:00:00 AM EDT Never Smoker completed Never S moker eCW1 ([facility]) Smoking 06/16/2020 12:00:00 AM EDT Never Smoker completed Never S moker eCW1 ([facility]) Alcohol intake 06/10/2020 12:00:00 AM EDT Current non-d kenan of alcohol (finding) completed Current non-drinker of alcohol (finding) [facility] Smoking 06/09/2020 12:00:00 AM EDT Unknown if ever smoked comp leted Unknown if ever smoked [facility] ([facility]) Smoking 05/26/2020 12:00:00 AM EDT Unknown if ever smoked comp leted Unknown if ever smoked [facility] ([facility]) Smoking 05/21/2020 12:00:00 AM EDT Unknown if ever smoked comp leted Unknown if ever smoked [facility] ([facility]) Vital Signs ID Date Data Source UNK Name Value Range Interpretation Code Description Data Source(s) Body weight 226.4 [lb_av] 226.4 [lb_av] [facility] Body weight 102.69 kg 102.69 kg eCW1 ([facility]) Body height [in_i] eCW1 ([facility]) Body mass index (BMI) [Ratio] 39.47 kg/m2 39.47 kg/m2 eCW1 ([facility]) Heart rate 86 /min 86 /min eCW1 ([facility]) Respiratory rate 18 /min 18 /min eCW1 ([facility]) Body temperature 97.8 [degF] 97.8 [degF] eCW1 ( [facility]) Systolic blood pressure 124 mm[Hg] 124 mm[Hg] e CW1 ([facility]) Diastolic blood pressure 78 mm[Hg] 78 mm[Hg] eCW1 ([facility]) Body weight 227 [lb_av] 227 [lb_av] eCW1 ([facility]) Body weight 102.97 kg 102.97 kg eCW1 ([facility]) Body height [in_i] eCW1 ([facility]) Body mass index (BMI) [Ratio] 39.58 kg/m2 39.58 kg/m2 eCW1 ([facility]) Heart rate 76 /min 76 /min eCW1 ([facility]) Body temperature 97.6 [degF] 97.6 [degF] eCW1 ( [facility]) Systolic blood pressure 124 mm[Hg] 124 mm[Hg] e CW1 ([facility]) Diastolic blood pressure 74 mm[Hg] 74 mm[Hg] eCW1 ([facility]) Body weight 226 [lb_av] 226 [lb_av] eCW1 ([facility]) Body height [in_i] eCW1 ([facility]) Body mass index (BMI) [Ratio] 39.40 kg/m2 39.40 kg/m2 eCW1 ([facility]) Heart rate 78 /min 78 /min eCW1 ([facility]) Respiratory rate 20 /min 20 /min eCW1 ([facility]) Body temperature 98 [degF] 98 [degF] eCW1 ([facility]) Systolic blood pressure 122 mm[Hg] 122 mm[Hg] e CW1 ([facility]) Diastolic blood pressure 80 mm[Hg] 80 mm[Hg] eCW1 ([facility]) Systolic blood pressure 124 mm[Hg] 124 mm[Hg] M EDENT ([facility], ) Diastolic blood pressure 80 mm[Hg] 80 mm[Hg] MEDENT ([facility], ) Heart rate 79 /min 79 /min MEDENT ([facility], ) Oxygen saturation in Arterial blood by Pulse oximetry 99 % 99 % [facility] Room Air Body height 64 [in_i] 64 [in_i] MEDENT ([facility], ) 5'4" [place] body weight 120 [lb_av] 120 [lb_av] MEDEN T ([facility], ) Body height 0.00 in Normal (applies to non-numeric resu lts) 0.00 in [facility] ([facility]) Body weight Measured 0.00 lbs Normal (applies to n on-numeric results) 0.00 lbs [facility] ([facility]) Body mass index (BMI) [Ratio] 0.00 kg/m2 No rmal (applies to non-numeric results) 0.00 kg/m2 [facility] ([facility]) Systolic blood pressure 0 mm[Hg] Normal (applies t o non-numeric results) 0 mm[Hg] [facility] ([facility]) Diastolic blood pressure 0 mm[Hg] Normal (applies to non-numeric results) 0 mm[Hg] [facility] ([facility]) Body weight 229 [lb_av] 229 [lb_av] eCW1 ([facility]) Body height [in_i] eCW1 ([facility]) Body mass index (BMI) [Ratio] 39.92 kg/m2 39.92 kg/m2 eCW1 ([facility]) Heart rate 80 /min 80 /min eCW1 ([facility]) Respiratory rate 18 /min 18 /min eCW1 ([facility]) Body temperature 97.6 [degF] 97.6 [degF] eCW1 ( [facility]) Systolic blood pressure 126 mm[Hg] 126 mm[Hg] e CW1 ([facility]) Diastolic blood pressure 80 mm[Hg] 80 mm[Hg] eCW1 ([facility]) Body height 63 [in_i] 63 [in_i] MEDENT ([facility]) 5'3" Body temperature 97.7 [degF] 97.7 [degF] MEDENT ([facility]) Body weight 225.38 [lb_av] 225.38 [lb_av] MEDEN T ([facility]) Body mass index (BMI) [Ratio] 39.9 kg/m2 39.9 k g/m2 MEDENT ([facility]) Body temperature 96.0 [degF] 96.0 [degF] MEDENT ([facility]) Body height 0.00 in Normal (applies to non-numeric resu lts) 0.00 in [facility] ([facility]) Body weight Measured 0.00 lbs Normal (applies to n on-numeric results) 0.00 lbs [facility] ([facility]) Body mass index (BMI) [Ratio] 0.00 kg/m2 No rmal (applies to non-numeric results) 0.00 kg/m2 [facility] ([facility]) Systolic blood pressure 0 mm[Hg] Normal (applies t o non-numeric results) 0 mm[Hg] [facility] ([facility]) Diastolic blood pressure 0 mm[Hg] Normal (applies to non-numeric results) 0 mm[Hg] [facility] ([facility]) Body height 0.00 in Normal (applies to non-numeric resu lts) 0.00 in [facility] ([facility]) Body weight Measured 0.00 lbs Normal (applies to n on-numeric results) 0.00 lbs [facility] ([facility]) Body mass index (BMI) [Ratio] 0.00 kg/m2 No rmal (applies to non-numeric results) 0.00 kg/m2 [facility] ([facility]) Systolic blood pressure 0 mm[Hg] Normal (applies t o non-numeric results) 0 mm[Hg] [facility] ([facility]) Diastolic blood pressure 0 mm[Hg] Normal (applies to non-numeric results) 0 mm[Hg] [facility] ([facility]) Body height 64 [in_i] 64 [in_i] [facility], [facility] 5'4" Body weight 242.00 [lb_av] 242.00 [lb_av] MEDEN T ([facility]) Body mass index (BMI) [Ratio] 41.5 kg/m2 41.5 k g/m2 [facility] ([facility]) [place] body weight 120 [lb_av] 120 [lb_av] MEDEN T ([facility]) Body weight 109.771 kg 109.771 kg [facility] ([facility]) Body surface area Derived from formula 2.12 m2 2.12 m2 [facility] ([facility]) Body weight 240 [lb_av] 240 [lb_av] eCW1 ([facility]) Body height [in_i] eCW1 ([facility]) Body mass index (BMI) [Ratio] 41.84 kg/m2 41.84 kg/m2 eCW1 ([facility]) Heart rate 90 /min 90 /min eCW1 ([facility]) Respiratory rate 20 /min 20 /min eCW1 ([facility]) Body temperature 98.2 [degF] 98.2 [degF] eCW1 ( [facility]) Systolic blood pressure 128 mm[Hg] 128 mm[Hg] e CW1 ([facility]) Diastolic blood pressure 76 mm[Hg] 76 mm[Hg] eCW1 ([facility]) Body weight 239.4 [lb_av] 239.4 [lb_av] eCW[facility] Body height [in_i] eCW1 ([facility]) Body mass index (BMI) [Ratio] 41.74 kg/m2 41.74 kg/m2 eCW1 ([facility]) Systolic blood pressure 130 mm[Hg] 130 mm[Hg] e CW1 ([facility]) Diastolic blood pressure 79 mm[Hg] 79 mm[Hg] eCW1 ([facility]) Body weight 241 [lb_av] 241 [lb_av] eCW1 ([facility]) Body height [in_i] eCW1 ([facility]) Body mass index (BMI) [Ratio] 42.02 kg/m2 42.02 kg/m2 eCW1 ([facility]) Systolic blood pressure 124 mm[Hg] 124 mm[Hg] e CW1 ([facility]) Diastolic blood pressure 70 mm[Hg] 70 mm[Hg] eCW1 ([facility]) Body height 0.00 in Normal (applies to non-numeric resu lts) 0.00 in [facility] ([facility]) Body weight Measured 0.00 lbs Normal (applies to n on-numeric results) 0.00 lbs [facility] ([facility]) Body mass index (BMI) [Ratio] 0.00 kg/m2 No rmal (applies to non-numeric results) 0.00 kg/m2 [facility] ([facility]) Systolic blood pressure 0 mm[Hg] Normal (applies t o non-numeric results) 0 mm[Hg] [facility] ([facility]) Diastolic blood pressure 0 mm[Hg] Normal (applies to non-numeric results) 0 mm[Hg] [facility] ([facility]) ID Date Data Source [id number] 06/24/2021 08:50:27 PM [facility] Name Value Range Interpretation Code Description Data Source(s) TRANSFER FROM [facility] ID Date Data Source [id number] 06/10/2020 09:13:13 AM [facility] Name Value Range Interpretation Code Description Data Source(s) WEIGHT RECORDED 251 lb 251 lb [facility] Body height Measured 64.02 in 64.02 in [facility] Patient Treatment Plan of Care Planned Activity Planned Date Details Description Data Source (s) Triamcinolone Acetonide 0.001 MG/MG Topical Ointment 12:00:00 AM EDT eCW1 ([facility]) Triamcinolone Acetonide 0.001 MG/MG Topical Ointment 12:00:00 AM EDT eCW1 ([facility]) Fluocinonide 0.5 MG/ML Topical Solution 06/03/2021 12:00:00 AM EDT eCW1 ([facility]) Triamcinolone Acetonide 0.001 MG/MG Topical Ointment 12:00:00 AM EDT eCW1 ([facility]) Fluocinonide 0.5 MG/ML Topical Solution 06/03/2021 12:00:00 AM EDT eCW1 ([facility]) Triamcinolone Acetonide 0.001 MG/MG Topical Ointment 12:00:00 AM EDT eCW1 ([facility]) Fluocinonide 0.5 MG/ML Topical Solution 06/03/2021 12:00:00 AM EDT eCW1 ([facility]) Triamcinolone Acetonide 0.001 MG/MG Topical Ointment 12:00:00 AM EDT eCW1 ([facility]) Fluocinonide 0.5 MG/ML Topical Solution 06/03/2021 12:00:00 AM EDT eCW1 ([facility]) Triamcinolone Acetonide 0.001 MG/MG Topical Ointment 12:00:00 AM EDT eCW1 ([facility]) Fluocinonide 0.5 MG/ML Topical Solution 06/03/2021 12:00:00 AM EDT eCW1 ([facility]) Triamcinolone Acetonide 0.001 MG/MG Topical Ointment 12:00:00 AM EDT eCW1 ([facility]) Fluocinonide 0.5 MG/ML Topical Solution 06/03/2021 12:00:00 AM EDT eCW1 ([facility]) Amlodipine 5 MG Oral Tablet 05/17/2021 12:00:00 AM EDT eCW1 ([facility]) Amlodipine 5 MG Oral Tablet 05/17/2021 12:00:00 AM EDT eCW1 ([facility]) Amlodipine 5 MG Oral Tablet 05/17/2021 12:00:00 AM EDT eCW1 ([facility]) Lidocaine Hydrochloride 20 MG/ML Mucous Membrane Topic al Solution 04/26/2021 12:00:00 AM EDT eCW1 ([facility]) Lidocaine Hydrochloride 20 MG/ML Mucous Membrane Topic al Solution 04/26/2021 12:00:00 AM EDT eCW1 ([facility]) Lidocaine Hydrochloride 20 MG/ML Mucous Membrane Topic al Solution 04/26/2021 12:00:00 AM EDT eCW1 ([facility]) Hydroxychloroquine Sulfate 200 MG Oral Tablet 02/18/2021 12:00:00 [facility] retapamulin 0.01 MG/MG Topical Ointment [Altabax] 10/08/2020 12: 00:00 AM EST eCW1 ([facility]) Fluconazole 100 MG Oral Tablet [Diflucan] 10/08/2020 12:00:00 AM ES T eCW1 ([facility]) retapamulin 0.01 MG/MG Topical Ointment [Altabax] 10/08/2020 12: 00:00 AM EST eCW1 ([facility]) Fluconazole 100 MG Oral Tablet [Diflucan] 10/08/2020 12:00:00 AM ES T eCW1 ([facility]) retapamulin 0.01 MG/MG Topical Ointment [Altabax] 10/08/2020 12: 00:00 AM EST eCW1 ([facility]) Fluconazole 100 MG Oral Tablet [Diflucan] 10/08/2020 12:00:00 AM ES T eCW1 ([facility]) retapamulin 0.01 MG/MG Topical Ointment [Altabax] 10/08/2020 12: 00:00 AM EST eCW1 ([facility]) Fluconazole 100 MG Oral Tablet [Diflucan] 10/08/2020 12:00:00 AM ES T eCW1 ([facility]) retapamulin 0.01 MG/MG Topical Ointment [Altabax] 10/08/2020 12: 00:00 AM EST eCW1 ([facility]) retapamulin 0.01 MG/MG Topical Ointment [Altabax] 10/08/2020 12: 00:00 AM EST eCW1 ([facility]) Fluconazole 100 MG Oral Tablet [Diflucan] 10/08/2020 12:00:00 AM ES T eCW1 ([facility]) retapamulin 0.01 MG/MG Topical Ointment [Altabax] 10/08/2020 12: 00:00 AM EST eCW1 ([facility]) Fluconazole 100 MG Oral Tablet [Diflucan] 10/08/2020 12:00:00 AM ES T eCW1 ([facility]) Fluconazole 100 MG Oral Tablet [Diflucan] 10/08/2020 12:00:00 AM ES T eCW1 ([facility]) retapamulin 0.01 MG/MG Topical Ointment [Altabax] 10/08/2020 12: 00:00 AM EST eCW1 ([facility]) Fluconazole 100 MG Oral Tablet [Diflucan] 10/08/2020 12:00:00 AM ES T eCW1 ([facility]) retapamulin 0.01 MG/MG Topical Ointment [Altabax] 10/08/2020 12: 00:00 AM EST eCW1 ([facility]) Fluconazole 100 MG Oral Tablet [Diflucan] 10/08/2020 12:00:00 AM ES T eCW1 ([facility]) retapamulin 0.01 MG/MG Topical Ointment [Altabax] 10/08/2020 12: 00:00 AM EST eCW1 ([facility]) Fluconazole 100 MG Oral Tablet [Diflucan] 10/08/2020 12:00:00 AM ES T eCW1 ([facility]) retapamulin 0.01 MG/MG Topical Ointment [Altabax] 10/08/2020 12: 00:00 AM EST eCW1 ([facility]) Fluconazole 100 MG Oral Tablet [Diflucan] 10/08/2020 12:00:00 AM ES T eCW1 ([facility]) Fluconazole 100 MG Oral Tablet [Diflucan] 10/08/2020 12:00:00 AM ES T eCW1 ([facility]) retapamulin 0.01 MG/MG Topical Ointment [Altabax] 10/08/2020 12: 00:00 AM EST eCW1 ([facility]) retapamulin 0.01 MG/MG Topical Ointment [Altabax] 10/08/2020 12: 00:00 AM EST eCW1 ([facility]) Fluconazole 100 MG Oral Tablet [Diflucan] 10/08/2020 12:00:00 AM ES T eCW1 ([facility]) retapamulin 0.01 MG/MG Topical Ointment [Altabax] 10/08/2020 12: 00:00 AM EST eCW1 ([facility]) Fluconazole 100 MG Oral Tablet [Diflucan] 10/08/2020 12:00:00 AM ES T eCW1 ([facility]) retapamulin 0.01 MG/MG Topical Ointment [Altabax] 10/08/2020 12: 00:00 AM EST eCW1 ([facility]) Fluconazole 100 MG Oral Tablet [Diflucan] 10/08/2020 12:00:00 AM ES T eCW1 ([facility]) retapamulin 0.01 MG/MG Topical Ointment [Altabax] 10/08/2020 12: 00:00 AM EST eCW1 ([facility]) Fluconazole 100 MG Oral Tablet [Diflucan] 10/08/2020 12:00:00 AM ES T eCW1 ([facility]) retapamulin 0.01 MG/MG Topical Ointment [Altabax] 10/08/2020 12: 00:00 AM EST eCW1 ([facility]) Fluconazole 100 MG Oral Tablet [Diflucan] 10/08/2020 12:00:00 AM ES T eCW1 ([facility]) retapamulin 0.01 MG/MG Topical Ointment [Altabax] 10/08/2020 12: 00:00 AM EST eCW1 ([facility]) Fluconazole 100 MG Oral Tablet [Diflucan] 10/08/2020 12:00:00 AM ES T eCW1 ([facility]) Rolling Walker 1 07/13/2020 12:00:00 AM EST eCW1 ([facility]) Rolling Walker 1 07/13/2020 12:00:00 AM EST eCW1 ([facility]) Rolling Walker 1 07/13/2020 12:00:00 AM EST eCW1 ([facility]) Rolling [place] 1 07/13/2020 12:00:00 AM EST eCW1 ([facility]) [place] 1 07/13/2020 12:00:00 AM EST eCW1 ([facility]) [place] 1 07/13/2020 12:00:00 AM EST eCW1 ([facility]) Hydroxychloroquine Sulfate 200 MG Oral Tablet 06/02/2020 12:00:00 [facility] Hydroxychloroquine Sulfate 200 MG Oral Tablet 03/26/2020 12:00:00 [facility]
--- NOTE | 2021-07-12 15:39 | HPEPDOC ---
General Date of Admission Jul 12, 2021 at 15:20 Date of Service: Jul 12, 2021 Chief Complaint The patient is a 61-year-old female admitted with a reason for visit of Covid- 19,Weakness. Source: Patient History of Present Illness Patient is 61 years old female with past medical history of depression, hypothyroidism, schizoaffective disorder, obstructive sleep apnea presented to hospital with generalized weakness. According to patient she was diagnosed with COVID-19 2 days ago and since that time she developed progressive generalized weakness. Patient denied any fever or chills or any shortness of breath. She denied any cough or sputum production. In ER patient was found to have oxygen saturation of 91% on room air, no leukocytosis. Chest x-ray showed Left lower lobe airspace disease. Possible small right basilar atelectasis. Procalcitonin negative Home Medications Scheduled Amlodipine Besylate (Amlodipine Besylate) 5 Mg Tablet, 5 MG PO DAILY, (Reported) Aspirin (Aspirin EC) 81 Mg Tablet.dr, 81 MG PO DAILY, (Reported) Calcium Carbonate/Vitamin D3 (Calcium 600-Vit D3 400 Tablet) 1 Each Tablet, 1 TAB PO BID, (Reported) Ciclopirox Olamine (Ciclopirox) 15 Gm Cream..g., 1 DOSE EXT DAILY, (Reported) APPLY TO TOENAILS Cranberry (Cranberry) 400 Mg Capsule, 400 MG PO BID, (Reported) Docusate Sodium (Colace) 100 Mg Cap, 200 MG PO DAILY, (Reported) Fexofenadine HCl (Fexofenadine HCl) 180 Mg Tablet, 180 MG PO DAILY, (Reported) Hydrochlorothiazide (Hydrochlorothiazide) 12.5 Mg Tablet, 12.5 MG PO DAILY, (Reported) Hydroxychloroquine Sulfate (Hydroxychloroquine Sulfate) 200 Mg Tablet, 200 MG PO BID, (Reported) Latanoprost (Xalatan) 0.005% 2.5ML Drops, 1 DROP OU QHS, (Reported) Levothyroxine Sodium (Levoxyl) 50 Mcg Tab, 50 MCG PO DAILY, (Reported) Levothyroxine Sodium (Levothyroxine Sodium) 50 Mcg Tablet, 50 MG PO DAILY, (Reported) [place] Carbonate ([place] Carbonate) 300 Mg Capsule, 600 MG PO QHS, (Reported) [place] Carbonate ([place] Carbonate) 300 Mg Tablet, 300 MG PO DAILY, (Reported) Multivitamins (Thera M Plus Tablet) 1 Each Tablet, 1 TAB PO DAILY, (Reported) Omeprazole (Omeprazole) 40 Mg Cap, 40 MG PO DAILY, (Reported) Quetiapine Fumarate (Quetiapine Fumarate) 50 Mg Tablet, 50 MG PO BID, (Reported) 0800, 1400 Quetiapine Fumarate (Quetiapine Fumarate ER) 200 Mg Tab.er.24h, 200 MG PO QHS, (Reported) Sertraline Hcl (Zoloft) 100 Mg Tablet, 100 MG PO DAILY, (Reported) Timolol Maleate (Timolol Maleate) 0.5% 5ML Drop.daily, 1 DROP OU BID, (Reported) Scheduled PRN Ammonium Lactate (Ammonium Lactate) 12% Lotion, 1 DOSE TOP DAILY PRN for DRY SKI N, (Reported) APPLY TO FEET Lidocaine HCl (Lidocaine HCl Viscous) 15 Ml Solution, 15 ML SSP QID PRN for MOUTH IRRITATION, (Reported) Polyvinyl Alcohol (Artificial Tears) 1.4 % Paulina, 1 DROP OU QID PRN for DRY EYES, (Reported) Allergies Coded Allergies: nitrofurantoin (Verified Allergy, Mild, 12/29/18) chlorproethazine (Verified Allergy, Unknown, 07/12/21) hydroxyzine (Verified Allergy, Unknown, 12/29/18) doxepin (Verified Adverse Reaction, Severe, SEIZURE, 05/19/19) bupropion (Verified Adverse Reaction, Intermediate, 'SPEEDS UP', 12/29/18) chlorpromazine (Verified Adverse Reaction, Intermediate, EPS, 12/29/18) trifluoperazine (Verified Adverse Reaction, Intermediate, EPS, 12/29/18) haloperidol (Verified Adverse Reaction, Unknown, 10/18/19) "grumpy" thioridazine (Verified Adverse Reaction, Unknown, EPS, 12/29/18) zolpidem (Verified Adverse Reaction, Unknown, 10/18/19) "feels strange" Past Medical History Medical History #HTN #KANU #hypothyroidism #RLE DVT - 07/2009 Schizoaffective disorder, bipolar type. Anxiety disorder, unspecified. Family History I personally reviewed family history and found not pertinent Social History * Smoker: Denies Alcohol: Denies Drugs: denies A-FIB/CHADSVASC A-FIB History Current/History of A-Fib/PAF?: No Current PO Anticoag Therapy: No Review of Systems Constitutional: Reports: Weakness, Fatigue; Denies: Chills, Fever Eyes: Denies: Pain ENT: Denies: Head Aches Skin: Denies: Rash Pulmonary: Denies: Dyspnea Cardiovascular: Denies: Chest Pain Gastrointestinal: Denies: Nausea Genitourinary: Denies: Dysuria Hematologic: Denies: Bruising Endocrine: Denies: Polydipsia Musculoskeletal: Denies: Neck Pain Neurological: Denies: Weakness Psych: Reports: Mood Normal Physical Examination General Exam: Positive: Alert, Cooperative Eye Exam: Positive: PERRLA ENT Exam: Positive: Atraumatic Neck Exam: Positive: Supple; Negative: JVD Chest Exam: Positive: Clear to auscultation Heart Exam: Positive: Rate Normal Telemetry: Positive: No significant arrhythmia Abdomen Exam: Positive: Normal bowel sounds Extremity Exam: Negative: Clubbing Skin Exam: Positive: Nl turgor and temperature Neuro Exam: Positive: Normal Gait Psych Exam: Positive: Oriented x 3 Vital Signs Vital Signs Date Time Temp Pulse Resp B/P (MAP) Pulse Ox O2 Delivery O2 Flow Rate FiO2 07/12/21 15:05 77 91 Room Air 07/12/21 14:14 125/58 (80) 07/12/21 11:57 100.4 18 Laboratory Data Labs 24H Laboratory Tests 2 07/12/21 11:33: Immature Granulocyte % (Auto) 0.6, Neutrophils (%) (Auto) 77.3H, Lymphocytes (%) (Auto) 12.1L, Monocytes (%) (Auto) 9.1H, Eosinophils (%) (Auto) 0.6, Basophils (%) (Auto) 0.3, Neutrophils # (Auto) 2.6, Lymphocytes # (Auto) 0.4L, Monocytes # (Auto) 0.3, Eosinophils # (Auto) 0.0, Basophils # (Auto) 0.0, Nucleated Red Blood Cells % (auto) 0.0, Prothrombin Time 15.1H, Prothromb Time International Ratio 1.15, Activated Partial Thromboplast Time 37.2, Fibrinogen 427, Lactic Acid Level 0.8, Total Creatine Kinase 50, Creatine Kinase MB < 1.0, Creatine Kinase MB Relative Index 2.00, Troponin I < 0.02, Procalcitonin 0.11 07/12/21 11:38: Anion Gap 6L, Glomerular Filtration Rate > 60.0, Calcium Level 9.1, Magnesium Level 2.3, Ferritin 236, Total Bilirubin 0.5, Aspartate Amino Transf (AST/SGOT) 34, Alanine Aminotransferase (ALT/SGPT) 29, Alkaline Phosphatase 91, Lactate De hydrogenase 328H, C-Reactive Protein, Quantitative 6.43H, Total Protein 6.8, Albumin 3.2, Albumin/Globulin Ratio 0.9L CBC/BMP Laboratory Tests 07/12/21 11:33 07/12/21 11:38 Microbiology Microbiology 07/12/21 Blood Culture, Received Pending 07/12/21 Blood Culture, Received Pending Assessment/Plan Patient is 60 years old female with past medical history of depression, hypothyroidism, schizoaffective disorder, obstructive sleep apnea presented to hospital with generalized weakness. According to patient she was diagnosed with COVID-19 2 days ago and since that time she developed progressive generalized weakness. Patient denied any fever or chills or any shortness of breath. She denied any cough or sputum production. In ER patient was found to have oxygen saturation of 91% on room air, no leukocytosis. Chest x-ray showed Left lower lobe airspace disease. Possible small right basilar atelectasis. Procalcitonin negative Problems (1) COVID-19 Status: Acute Problem Text: Patient is in the high risk of declining I will start remdesivir IV Continue to monitor PT/OT (2) Hypertension Problem Text: Continue home meds Blood pressure under control (3) Weakness Status: Acute Problem Text: PT/OT Secondary to COVID-19 infection (4) Anxiety Status: Chronic Problem Text: Continue home meds (5) Schizoaffective disorder Status: Acute Problem Text: Continue home meds Plan / VTE VTE Prophylaxis Ordered?: Yes DARIUS HANSEN DO Jul 12, 2021 15:39
[2021-07-12 17:30] VITALS: BP 135/66
[2021-07-12] MEDS ORDERED: REMDESIVIR 200 MG in NS 250 ML IV ONE (18:00)
[2021-07-12] MEDS: dexameTHASONE 4 MG/ML 1ML VIAL (J1100 PER 1MG) IV SCH (18:07)
[2021-07-12] MEDS ORDERED: HOME MED LIST COMPLETE! XX SCH (18:25)
[2021-07-12] MEDS ORDERED: LACTIC ACID 12% LOTION 225 GM BTL TOP PRN (18:35)
[2021-07-12] MEDS ORDERED: POLYVINYL ALCOHOL OPHTH SOLN 15 ML(LIQUITEARS) OU PRN (18:35)
[2021-07-12] MEDS ORDERED: LIDOCAINE VISCOUS 2% SOLN 15ML UDC SSP PRN (18:35)
--- NOTE | 2021-07-12 18:36 | ECGEPIP ---
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
[2021-07-12 20:00] VITALS: O2SAT 91
[2021-07-12] MEDS ORDERED: SODIUM CHLORIDE 0.9% INJ 10 ML SYR IV ONE (20:00)
[2021-07-12 22:00] VITALS: BP 139/61
[2021-07-12] MEDS: QUEtiapine FUMARATE **XR** 200MG TABLET PO SCH (23:02)
[2021-07-12] MEDS: ENOXAPARIN 40MG/0.4ML SYRINGE (J1650 PER 10MG) SC SCH (23:02)
[2021-07-12] MEDS: TIMOLOL MALEATE 0.5% OPHTH SOLN 5 ML OU SCH (23:03)
[2021-07-12] MEDS: HYDROXYCHLOROQUINE 200 MG TAB PO SCH (23:03)
[2021-07-12] MEDS: LITHIUM CARBONATE 300 MG CAP PO SCH (23:03)
[2021-07-12] MEDS: LATANOPROST 0.005% OPHTH SOLN 2.5 ML OU SCH (23:04)
[2021-07-13] VITALS (10 sets, daily range): BP systolic 96–108; BP diastolic 54–57; O2SAT 90–94
[2021-07-13] MEDS: LEVOTHYROXINE 50MCG TABLET (0.05MG) PO SCH (06:21)
[2021-07-13 08:12] LABS: BASO % 0.3 % (0.0-1.0); EOS % 0.3 % (0.0-3.0); HEMATOCRIT 36.9 % (36.0-47.0); HEMOGLOBIN 11.7 g/dl (12.0-15.5); LYMPH # 0.5 10^3/uL (1.5-5.0); LYMPH % 16.8 % (24.0-44.0); MEAN CORPUSCULAR HEMOGLOBIN 28.3 pg (27.0-33.0); MEAN CORPUSCULAR HGB CONC 31.7 g/dl (32.0-36.5); MEAN CORPUSCULAR VOLUME 89.1 fl (80.0-96.0); MONO # 0.3 10^3/uL (0.0-0.8); MONO % 11.2 % (2.0-8.0); NEUTROPHILS % 70.4 % (36.0-66.0); PLATELET COUNT, AUTOMATED 155 10^3/uL (150-450); RED BLOOD COUNT 4.14 10^6/uL (4.00-5.40); WHITE BLOOD COUNT 2.9 10^3/uL (4.0-10.0)
[2021-07-13] MEDS: MULTIVITAMINS/MINERALS THERAP 1 TAB PO SCH (08:40)
[2021-07-13] MEDS: QUEtiapine FUMARATE 50MG TAB PO SCH ×2 (08:40→12:47)
[2021-07-13] MEDS: ASPIRIN 81MG ENTERIC TABLET PO SCH (08:40)
[2021-07-13] MEDS: LITHIUM CARBONATE 300 MG CAP PO SCH ×2 (08:40→20:52)
[2021-07-13] MEDS: OMEPRAZOLE 20 MG CAP PO SCH (08:40)
[2021-07-13] MEDS: DOCUSATE SODIUM 100MG CAPSULE PO SCH (08:40)
[2021-07-13] MEDS: SERTRALINE 100 MG TAB PO SCH (08:40)
[2021-07-13 08:41] LABS: ALBUMIN 2.9 GM/DL (3.2-5.2); ALT/SGPT 26 U/L (12-78); BILIRUBIN,DIRECT 0.2 MG/DL (0.0-0.2); BILIRUBIN,TOTAL 0.3 MG/DL (0.2-1.0); BLOOD UREA NITROGEN 13 MG/DL (7-18); CALCIUM LEVEL 8.9 MG/DL (8.8-10.2); CARBON DIOXIDE LEVEL 28 MEQ/L (21-32); CHLORIDE LEVEL 105 MEQ/L (98-107); CREATININE FOR GFR 0.54 MG/DL (0.55-1.30); GLOMERULAR FILTRATION RATE > 60.0 (>45); GLUCOSE, FASTING 72 MG/DL (70-100); MAGNESIUM LEVEL 2.4 MG/DL (1.8-2.4); SODIUM LEVEL 138 MEQ/L (136-145); TOTAL PROTEIN 6.7 GM/DL (6.4-8.2)
[2021-07-13] MEDS: dexameTHASONE 4 MG/ML 1ML VIAL (J1100 PER 1MG) IV SCH (08:41)
[2021-07-13] MEDS: HYDROXYCHLOROQUINE 200 MG TAB PO SCH ×2 (08:41→20:52)
[2021-07-13] MEDS: ENOXAPARIN 40MG/0.4ML SYRINGE (J1650 PER 10MG) SC SCH ×2 (08:41→20:52)
[2021-07-13] MEDS: TIMOLOL MALEATE 0.5% OPHTH SOLN 5 ML OU SCH ×2 (08:42→20:53)
[2021-07-13] MEDS ORDERED: amLODIPine 5 MG TAB PO SCH (09:00)
[2021-07-13] MEDS ORDERED: hydroCHLOROthiazide 12.5 MG CAPSULE PO SCH (09:00)
[2021-07-13] MEDS ORDERED: ACETAMINOPHEN TAB 650MG DOSE (2X325MG) PO ONE (13:20)
[2021-07-13] MEDS ORDERED: POTASSIUM CHLORIDE 10MEQ SR TABLET PO ONE (13:25)
[2021-07-13] MEDS ORDERED: NS 1,000 ML IV SCH (14:20)
[2021-07-13] MEDS ORDERED: POTASSIUM CHLORIDE 10% LIQ 20 MEQ/15 ML UDC PO ONE (15:00)
[2021-07-13] MEDS ORDERED: REMDESIVIR 100 MG in NS 250 ML IV SCH (18:00)
[2021-07-13] MEDS ORDERED: SODIUM CHLORIDE 0.9% INJ 10 ML SYR IV SCH (19:00)
--- NOTE | 2021-07-13 19:39 | IPNPDOC ---
Text Note Date of Service The patient was seen on 07/13/21. NOTE Subjective: 61-year-old female presented to the hospital with complaints of generalized weakness. She was tested positive for COVID-19. Presently, she reports some improvement in her generalized weakness and was asking when she would be able to go home. She denied chest pain, shortness of breath, cough, abdominal pain, nausea, vomiting, problem with urination or bowel movements. Review of systems: 10 point review of system was negative except for what is noted in the HPI Physical exam: General: Lying in bed, no acute distress Head/Neck/Throat: Trachea midline, mucous membranes moist Eyes: Sclera anicteric, no erythema or discharge appreciated bilaterally Thorax: Normal respiratory effort on room air, lungs clear to auscultation bilaterally, no wheezes/rales/rhonchi Cardiovascular: Normal rate, regular rhythm, normal S1, S2; no S3, S4, rubs/gallops/murmurs Abdomen: Bowel sounds present, soft/nontender/nondistended Genitourinary: No CVA tenderness, no Bowden in place Musculoskeletal: Moving all extremities, no edema Skin: Warm, dry Neurologic: AAOx3, speech fluent and goal-directed, no focal deficits, grossly intact Labs: See below Imaging: Please see imaging section Assessment/plan: #COVID-19 -Complains of generalized weakness. She is maintaining adequate saturations on room air. Continue monitor respiratory status. #Generalized weakness -Secondary to COVID-19. Follow-up with PT/OT recommendations. #Hypertension -Blood pressure had decreased, therefore amlodipine was held. Suspect she has poor p.o. intake secondary to COVID-19, therefore we will start her on IV fluids. #Anxiety -Continue with ambulatory mood stabilizer #Schizoaffective disorder -Continue with ambulatory medications #DVT prophylaxis -Enoxaparin Disposition: Anticipate discharge on 07/14 if patient's respiratory status remains stable patient does well with PT/OT. VS,Fishbone, I+O VS, Fishbone, I+O Laboratory Tests 07/13/21 06:39 Vital Signs Date Time Temp Pulse Resp B/P (MAP) Pulse Ox O2 Delivery O2 Flow Rate FiO2 07/13/21 18:00 Room Air 07/13/21 16:25 91 07/13/21 13:59 96.9 76 20 96/54 (68) 07/13/21 09:00 1.0 I&O- Last 24 Hours up to 6 AM 07/13/21 06:00 Intake Total 720 ml Output Total 400 ml Balance 320 ml BRANDON SWEENEY M.D. Jul 13, 2021 19:39
[2021-07-13] MEDS: QUEtiapine FUMARATE **XR** 200MG TABLET PO SCH (20:51)
[2021-07-13] MEDS: LATANOPROST 0.005% OPHTH SOLN 2.5 ML OU SCH (20:52)
[2021-07-13] MEDS ORDERED: GI COCKTAIL 50ML BTL(HYOSCYAMINE/MAALOX/LIDOCAINE VISCOUS)(1:3:1) PO ONE (22:05)
[2021-07-14] VITALS: O2SAT 93
[2021-07-14 04:00] VITALS: O2SAT 89
[2021-07-14 06:00] VITALS: BP 118/56
[2021-07-14] MEDS: LEVOTHYROXINE 50MCG TABLET (0.05MG) PO SCH (06:26)
[2021-07-14 07:31] LABS: BASO % 0.3 % (0.0-1.0); EOS % 0.3 % (0.0-3.0); HEMATOCRIT 35.6 % (36.0-47.0); HEMOGLOBIN 11.3 g/dl (12.0-15.5); LYMPH # 0.5 10^3/uL (1.5-5.0); LYMPH % 16.8 % (24.0-44.0); MEAN CORPUSCULAR HEMOGLOBIN 28.5 pg (27.0-33.0); MEAN CORPUSCULAR HGB CONC 31.7 g/dl (32.0-36.5); MEAN CORPUSCULAR VOLUME 89.9 fl (80.0-96.0); MONO # 0.4 10^3/uL (0.0-0.8); MONO % 12.6 % (2.0-8.0); NEUTROPHILS # 2.1 10^3/uL (1.5-8.5); PLATELET COUNT, AUTOMATED 158 10^3/uL (150-450); RED BLOOD COUNT 3.96 10^6/uL (4.00-5.40); WHITE BLOOD COUNT 3.1 10^3/uL (4.0-10.0)
[2021-07-14 07:39] LABS: INR 1.13; PROTHROMBIN TIME 14.9 SECONDS (12.7-14.5)
[2021-07-14 07:40] LABS: PARTIAL THROMBOPLASTIN TIME 42.8 SECONDS (25.9-37.0)
[2021-07-14 07:58] LABS: CPK CREATINE PHOSPHOKINASE 29 U/L (26-192); TROPONIN I < 0.02 NG/ML (< 0.10)
[2021-07-14 08:00] VITALS: O2SAT 91
[2021-07-14 08:04] LABS: ALBUMIN 2.6 GM/DL (3.2-5.2); ALT/SGPT 22 U/L (12-78); BILIRUBIN,DIRECT 0.1 MG/DL (0.0-0.2); BILIRUBIN,TOTAL 0.3 MG/DL (0.2-1.0); BLOOD UREA NITROGEN 13 MG/DL (7-18); CALCIUM LEVEL 8.7 MG/DL (8.8-10.2); CARBON DIOXIDE LEVEL 26 MEQ/L (21-32); CHLORIDE LEVEL 108 MEQ/L (98-107); CREATININE FOR GFR 0.49 MG/DL (0.55-1.30); FERRITIN 214 NG/ML (8-252); GLOMERULAR FILTRATION RATE > 60.0 (>45); GLUCOSE, FASTING 84 MG/DL (70-100); LDH LACTATE DEHYDROGENASE 283 U/L (84-246); MAGNESIUM LEVEL 2.2 MG/DL (1.8-2.4); NT-PRO BNP 108 PG/ML (<125); POTASSIUM SERUM 3.8 MEQ/L (3.5-5.1); SODIUM LEVEL 139 MEQ/L (136-145); TOTAL PROTEIN 6.1 GM/DL (6.4-8.2)
[2021-07-14] MEDS: dexameTHASONE 4 MG/ML 1ML VIAL (J1100 PER 1MG) IV SCH (08:29)
[2021-07-14] MEDS: LITHIUM CARBONATE 300 MG CAP PO SCH (08:30)
[2021-07-14] MEDS: MULTIVITAMINS/MINERALS THERAP 1 TAB PO SCH (08:30)
[2021-07-14] MEDS: ASPIRIN 81MG ENTERIC TABLET PO SCH (08:30)
[2021-07-14] MEDS: HYDROXYCHLOROQUINE 200 MG TAB PO SCH (08:30)
[2021-07-14] MEDS: SERTRALINE 100 MG TAB PO SCH (08:30)
[2021-07-14] MEDS: ENOXAPARIN 40MG/0.4ML SYRINGE (J1650 PER 10MG) SC SCH (08:30)
[2021-07-14] MEDS: OMEPRAZOLE 20 MG CAP PO SCH (08:30)
[2021-07-14] MEDS: DOCUSATE SODIUM 100MG CAPSULE PO SCH (08:30)
[2021-07-14] MEDS: QUEtiapine FUMARATE 50MG TAB PO SCH ×2 (08:30→13:50)
[2021-07-14] MEDS: TIMOLOL MALEATE 0.5% OPHTH SOLN 5 ML OU SCH (08:31)
[2021-07-14 08:39] VITALS: BP 110/59
[2021-07-14] MEDS ORDERED: ACETAMINOPHEN TAB 650MG DOSE (2X325MG) PO ONE (09:00)
[2021-07-14 12:00] VITALS: O2SAT 92
[2021-07-14] MEDS ORDERED: PRED10TA2 PO (12:30)
--- NOTE | 2021-07-14 18:23 | DS.PDOC ---
Discharge Summary General Date of Admission Jul 12, 2021 at 15:20 Date of Discharge 07/14/18 Discharge Summary DISCHARGE DIAGNOSES: 1. COVID-19 2. Generalized weak 3. Hypertension COMPLICATIONS/CHIEF COMPLAINT: Covid-19,Weakness. HOSPITAL COURSE: Ms. Sevilla, was seen in the emergency room department on 07/12/2021 at [facility] with complaints of generalized weakness. She was diagnosed with COVID-19 2 days prior to admission. She was empirically started on dexamethasone and remdesivir. However, she did not require oxygen therapy and her generalized weakness improved. Therefore, she was discharged home. Considering she did not require oxygen she was consented for monoclonal antibodies and will be returning on 07/16/2021 for her infusion. She was cleared by physical therapy. She was discharged home on a prednisone taper. She was explained if her respiratory status changes to come to the emergency department or call 911. DISCHARGE MEDICATIONS: Please see below. ALLERGIES: Please see below. PHYSICAL EXAMINATION ON DISCHARGE: VITAL SIGNS: Please see below. General: Lying in bed, no acute distress Head/Neck/Throat: Trachea midline, mucous membranes moist Eyes: Sclera anicteric, PERRLA Thorax: Normal respiratory effort on room air, lungs clear to auscultation bi laterally, no wheezes/rales/rhonchi Cardiovascular: Normal rate, regular rhythm, normal S1, S2; no S3, S4, rubs/gallops/murmurs Abdomen: Bowel sounds present, soft/nontender/nondistended Genitourinary: No CVA tenderness, no Bowden in place Musculoskeletal: Moving all extremities, no edema Skin: Warm, dry Neurologic: AAOx3, speech fluent and goal-directed, no focal deficits, grossly intact LABORATORY DATA: Please see below. IMAGING: Chest x-ray Evaluation is limited by poor inspiratory effort although left lower lobe opacities suggest acute pneumonia and requires correlation/follow-up. Trace right basilar atelectasis cannot be excluded as well. PROGNOSIS: Good ACTIVITY: As tolerated DIET: Regular DISPOSITION: 06 Home Health Service. DISCHARGE INSTRUCTIONS: 1. Follow-up with primary care physician within 3 to 5 days ITEMS TO FOLLOWUP ON ON OUTPATIENT: 1. . DISCHARGE CONDITION: Stable TIME SPENT ON DISCHARGE: 25 minutes. Vital Signs/I&Os Vital Signs Date Time Temp Pulse Resp B/P (MAP) Pulse Ox O2 Delivery O2 Flow Rate FiO2 07/14/21 12:00 92 Room Air 07/14/21 08:39 100.0 80 16 110/59 (76) 07/13/21 09:00 1.0 I&O- Last 24 Hours up to 6 AM 07/14/21 06:00 Intake Total 1730 ml Output Total 100 ml Balance 1630 ml Laboratory Data Labs 24H Laboratory Tests 2 07/14/21 06:19: Immature Granulocyte % (Auto) 1.0, Neutrophils (%) (Auto) 69.0H, Lymphocytes (%) (Auto) 16.8L, Monocytes (%) (Auto) 12.6H, Eosinophils (%) (Auto) 0.3, Basophils (%) (Auto) 0.3, Neutrophils # (Auto) 2.1, Lymphocytes # (Auto) 0.5L, Monocytes # (Auto) 0.4, Eosinophils # (Auto) 0.0, Basophils # (Auto) 0.0, Nucleated Red Blood Cells % (auto) 0.0, Prothrombin Time 14.9H, Prothromb Time International Ratio 1.13, Activated Partial Thromboplast Time 42.8H, Fibrinogen 392, Anion Gap 5L, Glomerular Filtration Rate > 60.0, Calcium Level 8.7L, Magnesium Level 2.2, Ferritin 214, Total Bilirubin 0.3, Direct Bilirubin 0.1, Aspartate Amino Transf (AST/SGOT) 22, Alanine Aminotransferase (ALT/SGPT) 22, Alkaline Phosphatase 79, Lactate Dehydrogenase 283H, Total Creatine Kinase 29, Troponin I < 0.02, [id number]-Type Natriuretic Peptide 108, Total Protein 6.1L, Albumin 2.6L, Albumin/Globulin Ratio 0.7L, Procalcitonin 0.10 CBC/BMP Laboratory Tests 07/14/21 06:19 Microbiology Microbiology 07/12/21 Blood Culture - Preliminary, Resulted No Growth after 48 hours. All Specime... 07/12/21 Blood Culture - Preliminary, Resulted No Growth after 48 hours. All Specime... Discharge Medications Scheduled Aspirin (Aspirin EC) 81 Mg Tablet.dr, 81 MG PO DAILY, (Reported) Calcium Carbonate/Vitamin D3 (Calcium 600-Vit D3 400 Tablet) 1 Each Tablet, 1 TAB PO BID, (Reported) Ciclopirox Olamine (Ciclopirox) 15 Gm Cream..g., 1 DOSE EXT DAILY, (Reported) APPLY TO TOENAILS Cranberry (Cranberry) 400 Mg Capsule, 400 MG PO BID, (Reported) Docusate Sodium (Colace) 100 Mg Cap, 200 MG PO DAILY, (Reported) Fexofenadine HCl (Fexofenadine HCl) 180 Mg Tablet, 180 MG PO DAILY, (Reported) Hydrochlorothiazide (Hydrochlorothiazide) 12.5 Mg Tablet, 12.5 MG PO DAILY, (Reported) Hydroxychloroquine Sulfate (Hydroxychloroquine Sulfate) 200 Mg Tablet, 200 MG PO BID, (Reported) Latanoprost (Xalatan) 0.005% 2.5ML Drops, 1 DROP OU QHS, (Reported) Levothyroxine Sodium (Levothyroxine Sodium) 50 Mcg Tablet, 50 MCG PO DAILY, (Reported) [place] Carbonate ([place] Carbonate) 300 Mg Capsule, 600 MG PO QHS, (Reported) [place] Carbonate ([place] Carbonate) 300 Mg Tablet, 300 MG PO DAILY, (Reported) Multivitamins (Thera M Plus Tablet) 1 Each Tablet, 1 TAB PO DAILY, (Reported) Omeprazole (Omeprazole) 40 Mg Cap, 40 MG PO DAILY, (Reported) Prednisone (Prednisone) 10 Mg Tablet, 10 MG PO TAPER Take 4 tabs daily x 3 days, then 3 tabs daily x 3 days, then 2 tabs daily x 3 days, then 1 tab daily x 3 days and stop Quetiapine Fumarate (Quetiapine Fumarate) 50 Mg Tablet, 50 MG PO BID, (Reported) 0800, 1400 Quetiapine Fumarate (Quetiapine Fumarate ER) 200 Mg Tab.er.24h, 200 MG PO QHS, (Reported) Sertraline Hcl (Zoloft) 100 Mg Tablet, 100 MG PO DAILY, (Reported) Timolol Maleate (Timolol Maleate) 0.5% 5ML Drop.daily, 1 DROP OU BID, (Reported) Scheduled PRN Ammonium Lactate (Ammonium Lactate) 12% Lotion, 1 DOSE TOP DAILY PRN for DRY SKIN, (Reported) APPLY TO FEET Lidocaine HCl (Lidocaine HCl Viscous) 15 Ml Solution, 15 ML SSP QID PRN for MOUTH IRRITATION, (Reported) Polyvinyl Alcohol (Artificial Tears) 1.4 % Paulina, 1 DROP OU QID PRN for DRY EYES, (Reported) Allergies Coded Allergies: nitrofurantoin (Verified Allergy, Mild, 12/29/18) chlorproethazine (Verified Allergy, Unknown, 07/12/21) hydroxyzine (Verified Allergy, Unknown, 12/29/18) doxepin (Verified Adverse Reaction, Severe, SEIZURE, 05/19/19) bupropion (Verified Adverse Reaction, Intermediate, 'SPEEDS UP', 12/29/18) chlorpromazine (Verified Adverse Reaction, Intermediate, EPS, 12/29/18) trifluoperazine (Verified Adverse Reaction, Intermediate, EPS, 12/29/18) haloperidol (Verified Adverse Reaction, Unknown, 10/18/19) "grumpy" thioridazine (Verified Adverse Reaction, Unknown, EPS, 12/29/18) zolpidem (Verified Adverse Reaction, Unknown, 10/18/19) "feels strange" BRANDON SWEENEY M.D. Jul 14, 2021 18:23
== END 2021-07-14 17:35 | disposition home health service (06) | DRG 179 ==
LOC: M ED 11:20 → EDBD 11:20 → M ED INP 15:20 → ENRESERV 16:28 → M 4MAIN 17:00
PROVIDERS: ADMIT Internal Medicine; ATTEND Internal Medicine
DX: U07.1 COVID-19 (principal); I10 Essential (primary) hypertension; Z79.82 Long term (current) use of aspirin; Z79.899 Other long term (current) drug therapy; Z88.8 Allergy status to other drugs, medicaments and biological substances; E03.9 Hypothyroidism, unspecified; G47.33 Obstructive sleep apnea (adult) (pediatric); F41.9 Anxiety disorder, unspecified; F25.9 Schizoaffective disorder, unspecified

== ENCOUNTER 2021-07-15 14:03 | Outpatient (CLI) | payer MEDICARE, MEDICAID ==
[~2021-07-15] VITALS: Ht 157.5 cm; Wt 99.8 kg
[~2021-07-15 14:03] MED LIST changes: +ALBUTEROL 90 MCG/ACT 8GM HFA INHALER INH PRN; +ALBUTEROL SULFATE 2.5 MG/0.5 ML INH NEB SOLN INH PRN; +EPINEPHrine INJ 1 MG/ML 1ML AMP IM PRN; +LEVO50TA5 PO; +NS 1,000 ML IV SCH; +PRED10TA2 PO; +methylPREDNISolone 125MG 2ML VIAL IV PRN
[2021-07-15 14:20] VITALS: BP 113/57
[2021-07-15] MEDS ORDERED: CASIRIVIMAB/IMDEVIMAB 1,200 MG in NS 250 ML IV ONE (14:30)
[2021-07-15 14:50] VITALS: BP 120/58
[2021-07-15 15:20] VITALS: BP 106/56
[2021-07-15 16:20] VITALS: BP 126/60
== END 2021-07-15 16:20 | disposition home or self-care (01) ==
LOC: M OPCLI4PR 14:03
PROVIDERS: ATTEND Internal Medicine
DX: U07.1 COVID-19 (principal); Z88.1 Allergy status to other antibiotic agents; Z88.8 Allergy status to other drugs, medicaments and biological substances

== ENCOUNTER 2021-08-13 13:07 | Emergency (ER) | payer MEDICARE, MEDICAID ==
[~2021-08-13] VITALS: Ht 162.6 cm; Wt 98.2 kg
[~2021-08-13 13:07] MED LIST changes: -ALBUTEROL 90 MCG/ACT 8GM HFA INHALER INH PRN; -ALBUTEROL SULFATE 2.5 MG/0.5 ML INH NEB SOLN INH PRN; -EPINEPHrine INJ 1 MG/ML 1ML AMP IM PRN; -LATU40TA PO; +LATU40TA2 PO; -NS 1,000 ML IV SCH; -methylPREDNISolone 125MG 2ML VIAL IV PRN
[2021-08-13 14:26] LABS: HEMATOCRIT 39.6 % (36.0-47.0); HEMOGLOBIN 12.3 g/dl (12.0-15.5); MEAN CORPUSCULAR HEMOGLOBIN 28.6 pg (27.0-33.0); MEAN CORPUSCULAR HGB CONC 31.1 g/dl (32.0-36.5); MEAN CORPUSCULAR VOLUME 92.1 fl (80.0-96.0); PLATELET COUNT, AUTOMATED 253 10^3/uL (150-450); WHITE BLOOD COUNT 6.8 10^3/uL (4.0-10.0)
[2021-08-13 15:00] LABS: ACETAMINOPHEN LEVEL < 2.0 UG/ML (10.0-30.0); ALT/SGPT 56 U/L (12-78); BILIRUBIN,DIRECT 0.1 MG/DL (0.0-0.2); BILIRUBIN,TOTAL 0.4 MG/DL (0.2-1.0); BLOOD UREA NITROGEN 10 MG/DL (7-18); CALCIUM LEVEL 9.8 MG/DL (8.8-10.2); CARBON DIOXIDE LEVEL 27 MEQ/L (21-32); CHLORIDE LEVEL 107 MEQ/L (98-107); CREATININE FOR GFR 0.64 MG/DL (0.55-1.30); ETHYL ALCOHOL (ETHANOL) < 0.003 % (0.000-0.010); GLOMERULAR FILTRATION RATE > 60.0 (>45); GLUCOSE, FASTING 93 MG/DL (70-100); POTASSIUM SERUM 3.9 MEQ/L (3.5-5.1); SALICYLATE LEVEL < 1.7 MG/DL (5.0-30.0); SODIUM LEVEL 140 MEQ/L (136-145); TOTAL PROTEIN 7.2 GM/DL (6.4-8.2)
[2021-08-13 15:57] LABS: AMPHETAMINES LEVEL URINE NEGATIVE (NEGATIVE); BARBITURATES URINE NEGATIVE (NEGATIVE); BENZODIAZEPINES URINE NEGATIVE (NEGATIVE); CANNABINOIDS URINE NEGATIVE (NEGATIVE); COCAINE METABOLITE URINE NEGATIVE (NEGATIVE); METHADONE URINE NEGATIVE (NEGATIVE); OPIATES URINE NEGATIVE (NEGATIVE); PHENCYCLIDINE URINE NEGATIVE (NEGATIVE)
[2021-08-13 17:09] VITALS: BP 129/63
== END 2021-08-13 17:22 | disposition home or self-care (01) ==
LOC: M ED 13:07
DX: F43.20 Adjustment disorder, unspecified (principal); Z86.16 Personal history of COVID-19; Z79.82 Long term (current) use of aspirin; Z79.899 Other long term (current) drug therapy; Z88.8 Allergy status to other drugs, medicaments and biological substances

== ENCOUNTER 2021-09-24 11:48 | Emergency (ER) | payer MEDICARE, MEDICAID ==
[~2021-09-24] VITALS: Ht 165.1 cm; Wt 98.1 kg
[2021-09-24 16:08] LABS: BASO % 0.6 % (0.0-1.0); EOS # 0.3 10^3/uL (0.0-0.5); EOS % 4.7 % (0.0-3.0); HEMATOCRIT 39.7 % (36.0-47.0); HEMOGLOBIN 12.5 g/dl (12.0-15.5); LYMPH # 0.9 10^3/uL (1.5-5.0); LYMPH % 14.6 % (24.0-44.0); MEAN CORPUSCULAR HEMOGLOBIN 28.6 pg (27.0-33.0); MEAN CORPUSCULAR HGB CONC 31.5 g/dl (32.0-36.5); MEAN CORPUSCULAR VOLUME 90.8 fl (80.0-96.0); MONO # 0.5 10^3/uL (0.0-0.8); MONO % 7.2 % (2.0-8.0); NEUTROPHILS # 4.6 10^3/uL (1.5-8.5); NEUTROPHILS % 72.6 % (36.0-66.0); PLATELET COUNT, AUTOMATED 238 10^3/uL (150-450); RED BLOOD COUNT 4.37 10^6/uL (4.00-5.40); WHITE BLOOD COUNT 6.4 10^3/uL (4.0-10.0)
[2021-09-24 16:34] LABS: D-DIMER QUANT 2429.02 ng/ml (<500)
[2021-09-24 16:35] LABS: CK-MB VALUE MASS 4.2 NG/ML (<3.6); MB/CK RELATIVE INDEX 3.04 (< OR =4)
[2021-09-24 16:41] LABS: ALBUMIN 3.9 GM/DL (3.2-5.2); ALT/SGPT 31 U/L (12-78); BILIRUBIN,DIRECT 0.1 MG/DL (0.0-0.2); BILIRUBIN,TOTAL 0.3 MG/DL (0.2-1.0); BLOOD UREA NITROGEN 16 MG/DL (7-18); CALCIUM LEVEL 9.8 MG/DL (8.8-10.2); CARBON DIOXIDE LEVEL 29 MEQ/L (21-32); CHLORIDE LEVEL 105 MEQ/L (98-107); CREATININE FOR GFR 0.57 MG/DL (0.55-1.30); GLOMERULAR FILTRATION RATE > 60.0 (>45); GLUCOSE, FASTING 98 MG/DL (70-100); LIPASE 88 U/L (73-393); POTASSIUM SERUM 3.8 MEQ/L (3.5-5.1); SODIUM LEVEL 138 MEQ/L (136-145); TOTAL PROTEIN 7.4 GM/DL (6.4-8.2)
[2021-09-24] MEDS ORDERED: ISOVUE-370 76% 100ML VIAL As Ordered ONE (17:13)
[2021-09-24 17:17] LABS: C REACTIVE PROTEIN QUANTITATIV 1.07 MG/DL (0.00-0.30); NT-PRO BNP 54 PG/ML (<125)
[2021-09-24 17:28] LABS: INR 0.9; PROTHROMBIN TIME 12.5 SECONDS (12.7-14.5)
[2021-09-24 17:29] LABS: PARTIAL THROMBOPLASTIN TIME 30.4 SECONDS (25.9-37.0)
[2021-09-24 18:59] VITALS: BP 126/68
== END 2021-09-24 19:02 | disposition home or self-care (01) ==
LOC: M ED 11:48
DX: R22.41 Localized swelling, mass and lump, right lower limb (principal); R91.8 Other nonspecific abnormal finding of lung field; L74.0 Miliaria rubra; M71.21 Synovial cyst of popliteal space [Baker], right knee; R16.1 Splenomegaly, not elsewhere classified; K44.9 Diaphragmatic hernia without obstruction or gangrene; M51.34 Other intervertebral disc degeneration, thoracic region; R07.9 Chest pain, unspecified; R11.0 Nausea; R42 Dizziness and giddiness; R06.02 Shortness of breath; Z86.718 Personal history of other venous thrombosis and embolism; K21.9 Gastro-esophageal reflux disease without esophagitis; E03.9 Hypothyroidism, unspecified; F25.1 Schizoaffective disorder, depressive type; Z88.8 Allergy status to other drugs, medicaments and biological substances; Z79.899 Other long term (current) drug therapy; Z79.82 Long term (current) use of aspirin; Z79.890 Hormone replacement therapy
CPT/HCPCS: 36415; 71046; 71275; 80053; 82248; 82553; 83690; 83880; 84439; 84443; 84484; 85025; 85379; 85610; 85730; 86140; 93005; 93971; 99284; Q9967

== ENCOUNTER → 2021-10-07 | Outpatient (CLI) | payer MEDICARE, MEDICAID ==
[~2021-10-07] MED LIST changes: +FEXO-111 PO; -FEXO180T70 PO
[2021-10-07 18:28] LABS: ALBUMIN 3.9 GM/DL (3.2-5.2); ALT/SGPT 28 U/L (12-78); BILIRUBIN,TOTAL 0.4 MG/DL (0.2-1.0); BLOOD UREA NITROGEN 20 MG/DL (7-18); CALCIUM LEVEL 9.2 MG/DL (8.8-10.2); CARBON DIOXIDE LEVEL 28 MEQ/L (21-32); CHLORIDE LEVEL 105 MEQ/L (98-107); CREATININE FOR GFR 0.59 MG/DL (0.55-1.30); GLOMERULAR FILTRATION RATE > 60.0 (>45); GLUCOSE, FASTING 84 MG/DL (70-100); POTASSIUM SERUM 3.9 MEQ/L (3.5-5.1); SODIUM LEVEL 138 MEQ/L (136-145); TOTAL PROTEIN 7.1 GM/DL (6.4-8.2)
== END ==
LOC: M PLALAB 15:45
PROVIDERS: ATTEND Nurse Practitioner Adult Health
DX: E55.9 Vitamin D deficiency, unspecified (principal); I10 Essential (primary) hypertension; E03.9 Hypothyroidism, unspecified

== ENCOUNTER 2021-11-20 11:20 | Inpatient (IN) | payer MEDICAID, MEDICARE ==
[~2021-11-20] VITALS: Ht 162.6 cm; Wt 95.6 kg
[2021-11-20 11:55] LABS: HEMATOCRIT 38.6 % (36.0-47.0); HEMOGLOBIN 12.4 g/dl (12.0-15.5); MEAN CORPUSCULAR HEMOGLOBIN 28.4 pg (27.0-33.0); MEAN CORPUSCULAR HGB CONC 32.1 g/dl (32.0-36.5); MEAN CORPUSCULAR VOLUME 88.3 fl (80.0-96.0); PLATELET COUNT, AUTOMATED 178 10^3/uL (150-450); RED BLOOD COUNT 4.37 10^6/uL (4.00-5.40); WHITE BLOOD COUNT 5.3 10^3/uL (4.0-10.0)
[2021-11-20 12:30] LABS: ACETAMINOPHEN LEVEL < 2.0 UG/ML (10.0-30.0); ALBUMIN 3.7 GM/DL (3.2-5.2); ALT/SGPT 37 U/L (12-78); BILIRUBIN,DIRECT 0.1 MG/DL (0.0-0.2); BILIRUBIN,TOTAL 0.3 MG/DL (0.2-1.0); BLOOD UREA NITROGEN 15 MG/DL (7-18); CALCIUM LEVEL 9.5 MG/DL (8.8-10.2); CARBON DIOXIDE LEVEL 27 MEQ/L (21-32); CHLORIDE LEVEL 111 MEQ/L (98-107); CREATININE FOR GFR 0.74 MG/DL (0.55-1.30); ETHYL ALCOHOL (ETHANOL) < 0.003 % (0.000-0.010); GLOMERULAR FILTRATION RATE > 60.0 (>45); GLUCOSE, FASTING 109 MG/DL (70-100); POTASSIUM SERUM 3.7 MEQ/L (3.5-5.1); SALICYLATE LEVEL < 1.7 MG/DL (5.0-30.0); SODIUM LEVEL 143 MEQ/L (136-145); TOTAL PROTEIN 6.7 GM/DL (6.4-8.2)
[2021-11-20 12:31] LABS: RSV AMPLIFICATION NEGATIVE (NEGATIVE)
[2021-11-20] MEDS ORDERED: HOME MED LIST COMPLETE! XX SCH (14:55)
[2021-11-20 15:36] LABS: AMPHETAMINES LEVEL URINE NEGATIVE (NEGATIVE); BARBITURATES URINE NEGATIVE (NEGATIVE); BENZODIAZEPINES URINE NEGATIVE (NEGATIVE); CANNABINOIDS URINE NEGATIVE (NEGATIVE); COCAINE METABOLITE URINE NEGATIVE (NEGATIVE); METHADONE URINE NEGATIVE (NEGATIVE); OPIATES URINE NEGATIVE (NEGATIVE); PHENCYCLIDINE URINE NEGATIVE (NEGATIVE)
[2021-11-20] MEDS ORDERED: POLYVINYL ALCOHOL OPHTH SOLN 15 ML(LIQUITEARS) OU PRN (16:55)
[2021-11-20] MEDS ORDERED: LIDOCAINE VISCOUS 2% SOLN 15ML UDC SSP PRN (16:55)
[2021-11-20] MEDS ORDERED: MAALOX 30 ML SUSP *UDC PO PRN (16:55)
[2021-11-20] MEDS ORDERED: LACTIC ACID 12% LOTION 225 GM BTL TOP PRN ×2 (16:55→19:25)
[2021-11-20 21:16] VITALS: BP 131/72
[2021-11-20] MEDS: LITHIUM CARBONATE 300 MG CAP PO SCH (21:55)
[2021-11-20] MEDS: HYDROXYCHLOROQUINE 200 MG TAB PO SCH (21:56)
[2021-11-20] MEDS: QUEtiapine FUMARATE **XR** 200MG TABLET PO SCH (21:56)
[2021-11-20] MEDS: TIMOLOL MALEATE 0.5% OPHTH SOLN 5 ML OU SCH (22:01)
[2021-11-20] MEDS: LATANOPROST 0.005% OPHTH SOLN 2.5 ML OU SCH (22:25)
[2021-11-21] MEDS: LORazepam 1 MG TAB PO PRN ×2 (01:10→22:36)
[2021-11-21] MEDS: LEVOTHYROXINE 50MCG TABLET (0.05MG) PO SCH (05:56)
[2021-11-21 06:52] VITALS: BP 148/69
[2021-11-21] MEDS ORDERED: TIMOLOL MALEATE 0.5% OPHTH SOLN 5 ML OU SCH (09:00)
[2021-11-21] MEDS: OMEPRAZOLE 20MG CAP PO SCH (09:32)
[2021-11-21] MEDS: MULTIVITAMINS/MINERALS THERAP 1 TAB PO SCH (09:32)
[2021-11-21] MEDS: hydroCHLOROthiazide 12.5 MG CAPSULE PO SCH (09:32)
[2021-11-21] MEDS: SERTRALINE HCL 50 MG TAB PO SCH (09:32)
[2021-11-21] MEDS: ASPIRIN 81MG ENTERIC TABLET PO SCH (09:32)
[2021-11-21] MEDS: FEXOFENADINE 60MG TAB PO SCH (09:33)
[2021-11-21] MEDS: QUEtiapine FUMARATE 50MG TAB PO SCH ×2 (09:33→14:41)
[2021-11-21] MEDS: HYDROXYCHLOROQUINE 200 MG TAB PO SCH ×2 (09:33→22:22)
[2021-11-21] MEDS: TIMOLOL MALEATE 0.5% OPHTH SOLN 5 ML OU SCH ×2 (09:33→21:27)
[2021-11-21 20:18] VITALS: BP 146/60
[2021-11-21 20:19] VITALS: BP 145/79
[2021-11-21] MEDS: LATANOPROST 0.005% OPHTH SOLN 2.5 ML OU SCH (21:27)
[2021-11-21] MEDS: LITHIUM CARBONATE 300 MG CAP PO SCH (21:28)
[2021-11-21] MEDS: QUEtiapine FUMARATE **XR** 200MG TABLET PO SCH (21:29)
[2021-11-22] MEDS: OLANZapine ORAL DISINTEGRATING TAB 5MG PO PRN (00:26)
[2021-11-22] MEDS: LEVOTHYROXINE 50MCG TABLET (0.05MG) PO SCH (05:33)
[2021-11-22 06:46] VITALS: BP 124/63
[2021-11-22] MEDS: TIMOLOL MALEATE 0.5% OPHTH SOLN 5 ML OU SCH ×2 (08:45→20:26)
[2021-11-22] MEDS: ASPIRIN 81MG ENTERIC TABLET PO SCH (08:45)
[2021-11-22] MEDS: SERTRALINE HCL 50 MG TAB PO SCH (08:45)
[2021-11-22] MEDS: MULTIVITAMINS/MINERALS THERAP 1 TAB PO SCH (08:45)
[2021-11-22] MEDS: OMEPRAZOLE 20MG CAP PO SCH (08:45)
[2021-11-22] MEDS: hydroCHLOROthiazide 12.5 MG CAPSULE PO SCH (08:46)
[2021-11-22] MEDS: QUEtiapine FUMARATE 50MG TAB PO SCH ×2 (08:46→13:31)
[2021-11-22] MEDS: HYDROXYCHLOROQUINE 200 MG TAB PO SCH ×2 (08:46→20:26)
[2021-11-22] MEDS: FEXOFENADINE 60MG TAB PO SCH (08:46)
[2021-11-22 09:22] LABS: CHOLESTEROL RISK RATIO 2.647 (<5)
[2021-11-22 16:21] VITALS: BP 140/70
[2021-11-22] MEDS: LATANOPROST 0.005% OPHTH SOLN 2.5 ML OU SCH (20:26)
[2021-11-22] MEDS: LITHIUM CARBONATE 300 MG CAP PO SCH (20:26)
[2021-11-22] MEDS: QUEtiapine FUMARATE **XR** 200MG TABLET PO SCH (20:26)
[2021-11-23] MEDS: LEVOTHYROXINE 50MCG TABLET (0.05MG) PO SCH (05:47)
[2021-11-23 06:19] VITALS: BP 148/89
[2021-11-23] MEDS: FEXOFENADINE 60MG TAB PO SCH (07:42)
[2021-11-23] MEDS: SERTRALINE HCL 50 MG TAB PO SCH (07:42)
[2021-11-23] MEDS: HYDROXYCHLOROQUINE 200 MG TAB PO SCH ×2 (07:42→21:06)
[2021-11-23] MEDS: QUEtiapine FUMARATE 50MG TAB PO SCH ×2 (07:42→13:20)
[2021-11-23] MEDS: hydroCHLOROthiazide 12.5 MG CAPSULE PO SCH (07:42)
[2021-11-23] MEDS: OMEPRAZOLE 20MG CAP PO SCH (07:42)
[2021-11-23] MEDS: TIMOLOL MALEATE 0.5% OPHTH SOLN 5 ML OU SCH ×2 (07:43→21:05)
[2021-11-23] MEDS: ASPIRIN 81MG ENTERIC TABLET PO SCH (07:43)
[2021-11-23] MEDS: MULTIVITAMINS/MINERALS THERAP 1 TAB PO SCH (07:43)
[2021-11-23 16:14] VITALS: BP 132/64
[2021-11-23] MEDS: LITHIUM CARBONATE 300 MG CAP PO SCH (21:06)
[2021-11-23] MEDS: QUEtiapine FUMARATE **XR** 200MG TABLET PO SCH (21:06)
[2021-11-23] MEDS: LATANOPROST 0.005% OPHTH SOLN 2.5 ML OU SCH (21:06)
[2021-11-24] MEDS: LEVOTHYROXINE 50MCG TABLET (0.05MG) PO SCH (06:23)
[2021-11-24 06:26] VITALS: BP 129/62
[2021-11-24] MEDS: ASPIRIN 81MG ENTERIC TABLET PO SCH (08:42)
[2021-11-24] MEDS: HYDROXYCHLOROQUINE 200 MG TAB PO SCH ×2 (08:42→21:48)
[2021-11-24] MEDS: OMEPRAZOLE 20MG CAP PO SCH (08:42)
[2021-11-24] MEDS: MULTIVITAMINS/MINERALS THERAP 1 TAB PO SCH (08:42)
[2021-11-24] MEDS: TIMOLOL MALEATE 0.5% OPHTH SOLN 5 ML OU SCH ×2 (08:43→21:49)
[2021-11-24] MEDS: hydroCHLOROthiazide 12.5 MG CAPSULE PO SCH (08:43)
[2021-11-24] MEDS: QUEtiapine FUMARATE 50MG TAB PO SCH ×2 (08:43→14:07)
[2021-11-24] MEDS: SERTRALINE HCL 50 MG TAB PO SCH (08:44)
[2021-11-24] MEDS: FEXOFENADINE 60MG TAB PO SCH (09:22)
[2021-11-24] MEDS: OLANZapine ORAL DISINTEGRATING TAB 5MG PO PRN ×2 (10:42→22:34)
[2021-11-24 16:32] VITALS: BP 142/69
[2021-11-24] MEDS: LITHIUM CARBONATE 300 MG CAP PO SCH (21:48)
[2021-11-24] MEDS: QUEtiapine FUMARATE **XR** 200MG TABLET PO SCH (21:48)
[2021-11-24] MEDS: DOCUSATE SODIUM 100MG CAPSULE PO PRN (21:49)
[2021-11-24] MEDS: LATANOPROST 0.005% OPHTH SOLN 2.5 ML OU SCH (22:11)
[2021-11-24] MEDS: LORazepam 1 MG TAB PO PRN (22:35)
[2021-11-25] MEDS: LEVOTHYROXINE 50MCG TABLET (0.05MG) PO SCH (05:47)
[2021-11-25 06:00] VITALS: BP 140/89
[2021-11-25] MEDS: TIMOLOL MALEATE 0.5% OPHTH SOLN 5 ML OU SCH ×2 (08:39→20:50)
[2021-11-25] MEDS: FEXOFENADINE 60MG TAB PO SCH (08:41)
[2021-11-25] MEDS: hydroCHLOROthiazide 12.5 MG CAPSULE PO SCH (08:42)
[2021-11-25] MEDS: OMEPRAZOLE 20MG CAP PO SCH (08:43)
[2021-11-25] MEDS: HYDROXYCHLOROQUINE 200 MG TAB PO SCH ×2 (08:43→20:50)
[2021-11-25] MEDS: QUEtiapine FUMARATE 50MG TAB PO SCH ×2 (08:43→14:06)
[2021-11-25] MEDS: SERTRALINE HCL 50 MG TAB PO SCH (08:43)
[2021-11-25] MEDS: MULTIVITAMINS/MINERALS THERAP 1 TAB PO SCH (08:43)
[2021-11-25] MEDS: ASPIRIN 81MG ENTERIC TABLET PO SCH (08:43)
[2021-11-25 18:22] VITALS: BP 148/72
[2021-11-25] MEDS: QUEtiapine FUMARATE **XR** 200MG TABLET PO SCH (20:50)
[2021-11-25] MEDS: DOCUSATE SODIUM 100MG CAPSULE PO PRN (20:50)
[2021-11-25] MEDS: LATANOPROST 0.005% OPHTH SOLN 2.5 ML OU SCH (20:50)
[2021-11-25] MEDS: LITHIUM CARBONATE 300 MG CAP PO SCH (20:51)
[2021-11-25] MEDS: OLANZapine ORAL DISINTEGRATING TAB 5MG PO PRN (22:29)
[2021-11-25] MEDS: LORazepam 1 MG TAB PO PRN (22:31)
[2021-11-26] MEDS: LEVOTHYROXINE 50MCG TABLET (0.05MG) PO SCH (05:50)
[2021-11-26 06:00] VITALS: BP 147/79
[2021-11-26] MEDS: QUEtiapine FUMARATE 50MG TAB PO SCH ×2 (08:36→13:17)
[2021-11-26] MEDS: OMEPRAZOLE 20MG CAP PO SCH (08:38)
[2021-11-26] MEDS: ASPIRIN 81MG ENTERIC TABLET PO SCH (08:38)
[2021-11-26] MEDS: MULTIVITAMINS/MINERALS THERAP 1 TAB PO SCH (08:38)
[2021-11-26] MEDS: hydroCHLOROthiazide 12.5 MG CAPSULE PO SCH (08:38)
[2021-11-26] MEDS: FEXOFENADINE 60MG TAB PO SCH (08:38)
[2021-11-26] MEDS: SERTRALINE HCL 50 MG TAB PO SCH (08:38)
[2021-11-26] MEDS: HYDROXYCHLOROQUINE 200 MG TAB PO SCH ×2 (08:38→20:18)
[2021-11-26] MEDS: TIMOLOL MALEATE 0.5% OPHTH SOLN 5 ML OU SCH ×2 (08:38→20:17)
[2021-11-26] MEDS: MOM 30ML SUSPENSION UDC PO PRN (15:38)
[2021-11-26 16:28] VITALS: BP 141/68
[2021-11-26] MEDS: LATANOPROST 0.005% OPHTH SOLN 2.5 ML OU SCH (20:16)
[2021-11-26] MEDS: LITHIUM CARBONATE 300 MG CAP PO SCH (20:18)
[2021-11-26] MEDS: QUEtiapine FUMARATE **XR** 200MG TABLET PO SCH (20:18)
[2021-11-26] MEDS: DOCUSATE SODIUM 100MG CAPSULE PO PRN (21:41)
[2021-11-26] MEDS: OLANZapine ORAL DISINTEGRATING TAB 5MG PO PRN (21:41)
[2021-11-26] MEDS: LORazepam 1 MG TAB PO PRN (21:45)
[2021-11-27] MEDS: LEVOTHYROXINE 50MCG TABLET (0.05MG) PO SCH (05:42)
[2021-11-27 06:29] VITALS: BP 148/65
[2021-11-27] MEDS: FEXOFENADINE 60MG TAB PO SCH (08:54)
[2021-11-27] MEDS: MULTIVITAMINS/MINERALS THERAP 1 TAB PO SCH (08:54)
[2021-11-27] MEDS: hydroCHLOROthiazide 12.5 MG CAPSULE PO SCH (08:54)
[2021-11-27] MEDS: OMEPRAZOLE 20MG CAP PO SCH (08:54)
[2021-11-27] MEDS: SERTRALINE HCL 50 MG TAB PO SCH (08:54)
[2021-11-27] MEDS: QUEtiapine FUMARATE 50MG TAB PO SCH ×2 (08:54→13:52)
[2021-11-27] MEDS: HYDROXYCHLOROQUINE 200 MG TAB PO SCH ×2 (08:54→20:16)
[2021-11-27] MEDS: ASPIRIN 81MG ENTERIC TABLET PO SCH (08:54)
[2021-11-27] MEDS: TIMOLOL MALEATE 0.5% OPHTH SOLN 5 ML OU SCH ×2 (08:55→20:32)
[2021-11-27 16:17] VITALS: BP 128/72
[2021-11-27] MEDS: LATANOPROST 0.005% OPHTH SOLN 2.5 ML OU SCH (20:15)
[2021-11-27] MEDS: LITHIUM CARBONATE 300 MG CAP PO SCH (20:15)
[2021-11-27] MEDS: QUEtiapine FUMARATE **XR** 200MG TABLET PO SCH (20:16)
[2021-11-28] MEDS: LEVOTHYROXINE 50MCG TABLET (0.05MG) PO SCH (05:54)
[2021-11-28 06:22] VITALS: BP 163/74
[2021-11-28] MEDS: hydroCHLOROthiazide 12.5 MG CAPSULE PO SCH (08:42)
[2021-11-28] MEDS: ASPIRIN 81MG ENTERIC TABLET PO SCH (08:43)
[2021-11-28] MEDS: MULTIVITAMINS/MINERALS THERAP 1 TAB PO SCH (08:43)
[2021-11-28] MEDS: HYDROXYCHLOROQUINE 200 MG TAB PO SCH ×2 (08:43→22:01)
[2021-11-28] MEDS: FEXOFENADINE 60MG TAB PO SCH (08:43)
[2021-11-28] MEDS: QUEtiapine FUMARATE 50MG TAB PO SCH ×2 (08:43→13:43)
[2021-11-28] MEDS: OMEPRAZOLE 20MG CAP PO SCH (08:43)
[2021-11-28] MEDS: TIMOLOL MALEATE 0.5% OPHTH SOLN 5 ML OU SCH ×2 (08:44→22:02)
[2021-11-28] MEDS: SERTRALINE HCL 50 MG TAB PO SCH (08:44)
[2021-11-28 16:10] VITALS: BP 132/68
[2021-11-28] MEDS: LATANOPROST 0.005% OPHTH SOLN 2.5 ML OU SCH (22:00)
[2021-11-28] MEDS: QUEtiapine FUMARATE **XR** 200MG TABLET PO SCH (22:01)
[2021-11-28] MEDS: LITHIUM CARBONATE 300 MG CAP PO SCH (22:02)
[2021-11-29] MEDS: LEVOTHYROXINE 50MCG TABLET (0.05MG) PO SCH (06:08)
[2021-11-29 06:26] VITALS: BP 153/87
[2021-11-29] MEDS: QUEtiapine FUMARATE 50MG TAB PO SCH ×2 (07:26→13:12)
[2021-11-29] MEDS: ASPIRIN 81MG ENTERIC TABLET PO SCH (09:15)
[2021-11-29] MEDS: MULTIVITAMINS/MINERALS THERAP 1 TAB PO SCH (09:16)
[2021-11-29] MEDS: HYDROXYCHLOROQUINE 200 MG TAB PO SCH ×2 (09:16→21:51)
[2021-11-29] MEDS: hydroCHLOROthiazide 12.5 MG CAPSULE PO SCH (09:16)
[2021-11-29] MEDS: FEXOFENADINE 60MG TAB PO SCH (09:16)
[2021-11-29] MEDS: TIMOLOL MALEATE 0.5% OPHTH SOLN 5 ML OU SCH ×2 (09:16→21:51)
[2021-11-29] MEDS: OMEPRAZOLE 20MG CAP PO SCH (09:16)
[2021-11-29] MEDS: SERTRALINE HCL 50 MG TAB PO SCH (09:16)
[2021-11-29 17:46] VITALS: BP 142/84
[2021-11-29] MEDS: LITHIUM CARBONATE 300 MG CAP PO SCH (21:51)
[2021-11-29] MEDS: LATANOPROST 0.005% OPHTH SOLN 2.5 ML OU SCH (21:51)
[2021-11-29] MEDS: QUEtiapine FUMARATE **XR** 200MG TABLET PO SCH (21:51)
[2021-11-30] MEDS: LEVOTHYROXINE 50MCG TABLET (0.05MG) PO SCH (05:42)
[2021-11-30 06:00] VITALS: BP 133/66
[2021-11-30] MEDS: FEXOFENADINE 60MG TAB PO SCH (09:40)
[2021-11-30] MEDS: HYDROXYCHLOROQUINE 200 MG TAB PO SCH ×2 (09:40→20:50)
[2021-11-30] MEDS: ASPIRIN 81MG ENTERIC TABLET PO SCH (09:40)
[2021-11-30] MEDS: OMEPRAZOLE 20MG CAP PO SCH (09:40)
[2021-11-30] MEDS: SERTRALINE HCL 50 MG TAB PO SCH (09:40)
[2021-11-30] MEDS: hydroCHLOROthiazide 12.5 MG CAPSULE PO SCH (09:40)
[2021-11-30] MEDS: MULTIVITAMINS/MINERALS THERAP 1 TAB PO SCH (09:40)
[2021-11-30] MEDS: QUEtiapine FUMARATE 50MG TAB PO SCH ×2 (09:41→13:34)
[2021-11-30] MEDS: TIMOLOL MALEATE 0.5% OPHTH SOLN 5 ML OU SCH ×2 (09:41→20:50)
[2021-11-30] MEDS: LATANOPROST 0.005% OPHTH SOLN 2.5 ML OU SCH (20:50)
[2021-11-30] MEDS: LITHIUM CARBONATE 600MG CAP PO SCH (20:50)
[2021-11-30] MEDS: QUEtiapine FUMARATE **XR** 200MG TABLET PO SCH (20:50)
[2021-11-30] MEDS: OLANZapine ORAL DISINTEGRATING TAB 5MG PO PRN (22:45)
[2021-11-30] MEDS: LORazepam 1 MG TAB PO PRN (22:52)
[2021-12-01 06:00] VITALS: BP 134/64
[2021-12-01] MEDS: LEVOTHYROXINE 50MCG TABLET (0.05MG) PO SCH (06:01)
[2021-12-01] MEDS ORDERED: SERTRALINE HCL 25 MG TABLET PO SCH (09:00)
[2021-12-01] MEDS ORDERED: LORazepam 1 MG TAB PO STA (09:39)
[2021-12-01] MEDS: OMEPRAZOLE 20MG CAP PO SCH (10:32)
[2021-12-01] MEDS: hydroCHLOROthiazide 12.5 MG CAPSULE PO SCH (10:33)
[2021-12-01] MEDS: FEXOFENADINE 60MG TAB PO SCH (10:33)
[2021-12-01] MEDS: ASPIRIN 81MG ENTERIC TABLET PO SCH (10:34)
[2021-12-01] MEDS: QUEtiapine FUMARATE 50MG TAB PO SCH ×2 (10:34→14:00)
[2021-12-01] MEDS: TIMOLOL MALEATE 0.5% OPHTH SOLN 5 ML OU SCH ×2 (10:34→20:44)
[2021-12-01] MEDS: MULTIVITAMINS/MINERALS THERAP 1 TAB PO SCH (10:34)
[2021-12-01] MEDS: HYDROXYCHLOROQUINE 200 MG TAB PO SCH ×2 (10:37→20:43)
[2021-12-01 17:40] VITALS: BP 155/76
[2021-12-01] MEDS: LITHIUM CARBONATE 600MG CAP PO SCH (20:42)
[2021-12-01] MEDS: QUEtiapine FUMARATE **XR** 200MG TABLET PO SCH (20:43)
[2021-12-01] MEDS: LATANOPROST 0.005% OPHTH SOLN 2.5 ML OU SCH (20:44)
[2021-12-01] MEDS: LORazepam 1 MG TAB PO PRN (20:57)
[2021-12-02] MEDS: LEVOTHYROXINE 50MCG TABLET (0.05MG) PO SCH (06:12)
[2021-12-02 06:35] VITALS: BP 149/78
[2021-12-02] MEDS: OMEPRAZOLE 20MG CAP PO SCH (09:39)
[2021-12-02] MEDS: TIMOLOL MALEATE 0.5% OPHTH SOLN 5 ML OU SCH ×2 (09:39→21:06)
[2021-12-02] MEDS: MULTIVITAMINS/MINERALS THERAP 1 TAB PO SCH (09:39)
[2021-12-02] MEDS: SERTRALINE 100 MG TAB PO SCH (09:39)
[2021-12-02] MEDS: HYDROXYCHLOROQUINE 200 MG TAB PO SCH ×2 (09:39→21:07)
[2021-12-02] MEDS: ASPIRIN 81MG ENTERIC TABLET PO SCH (09:39)
[2021-12-02] MEDS: FEXOFENADINE 60MG TAB PO SCH (09:39)
[2021-12-02] MEDS: hydroCHLOROthiazide 12.5 MG CAPSULE PO SCH (09:41)
[2021-12-02] MEDS: QUEtiapine FUMARATE 50MG TAB PO SCH ×2 (09:41→13:50)
[2021-12-02 18:00] VITALS: BP 124/61
[2021-12-02] MEDS: LATANOPROST 0.005% OPHTH SOLN 2.5 ML OU SCH (21:06)
[2021-12-02] MEDS: QUEtiapine FUMARATE **XR** 200MG TABLET PO SCH (21:07)
[2021-12-02] MEDS: LITHIUM CARBONATE 600MG CAP PO SCH (21:07)
[2021-12-03] MEDS: LEVOTHYROXINE 50MCG TABLET (0.05MG) PO SCH (06:22)
[2021-12-03 06:45] VITALS: BP 136/62
[2021-12-03] MEDS: MULTIVITAMINS/MINERALS THERAP 1 TAB PO SCH (08:24)
[2021-12-03] MEDS: HYDROXYCHLOROQUINE 200 MG TAB PO SCH ×2 (08:24→21:38)
[2021-12-03] MEDS: ASPIRIN 81MG ENTERIC TABLET PO SCH (08:24)
[2021-12-03] MEDS: SERTRALINE 100 MG TAB PO SCH (08:24)
[2021-12-03] MEDS: OMEPRAZOLE 20MG CAP PO SCH (08:24)
[2021-12-03] MEDS: hydroCHLOROthiazide 12.5 MG CAPSULE PO SCH (08:25)
[2021-12-03] MEDS: TIMOLOL MALEATE 0.5% OPHTH SOLN 5 ML OU SCH ×2 (08:25→21:38)
[2021-12-03] MEDS: FEXOFENADINE 60MG TAB PO SCH (08:25)
[2021-12-03] MEDS: QUEtiapine FUMARATE 50MG TAB PO SCH ×2 (08:25→13:58)
[2021-12-03] MEDS: DOCUSATE SODIUM 100MG CAPSULE PO PRN (08:32)
[2021-12-03 18:34] VITALS: BP 136/62
[2021-12-03] MEDS: QUEtiapine FUMARATE **XR** 200MG TABLET PO SCH (21:38)
[2021-12-03] MEDS: LATANOPROST 0.005% OPHTH SOLN 2.5 ML OU SCH (21:38)
[2021-12-03] MEDS: LITHIUM CARBONATE 300 MG CAP PO SCH (21:39)
[2021-12-04] MEDS: LEVOTHYROXINE 50MCG TABLET (0.05MG) PO SCH (05:56)
[2021-12-04 06:00] VITALS: BP 142/96
[2021-12-04] MEDS: OMEPRAZOLE 20MG CAP PO SCH (08:30)
[2021-12-04] MEDS: MULTIVITAMINS/MINERALS THERAP 1 TAB PO SCH (08:31)
[2021-12-04] MEDS: hydroCHLOROthiazide 12.5 MG CAPSULE PO SCH (08:31)
[2021-12-04] MEDS: ASPIRIN 81MG ENTERIC TABLET PO SCH (08:31)
[2021-12-04] MEDS: HYDROXYCHLOROQUINE 200 MG TAB PO SCH ×2 (08:32→21:54)
[2021-12-04] MEDS: QUEtiapine FUMARATE 50MG TAB PO SCH ×2 (08:32→13:50)
[2021-12-04] MEDS: SERTRALINE 100 MG TAB PO SCH (08:32)
[2021-12-04] MEDS: FEXOFENADINE 60MG TAB PO SCH (08:34)
[2021-12-04] MEDS: TIMOLOL MALEATE 0.5% OPHTH SOLN 5 ML OU SCH ×2 (09:34→21:54)
[2021-12-04 18:32] VITALS: BP 134/76
[2021-12-04] MEDS: LITHIUM CARBONATE 300 MG CAP PO SCH (21:54)
[2021-12-04] MEDS: QUEtiapine FUMARATE **XR** 200MG TABLET PO SCH (21:54)
[2021-12-04] MEDS: LATANOPROST 0.005% OPHTH SOLN 2.5 ML OU SCH (21:54)
[2021-12-04] MEDS: OLANZapine ORAL DISINTEGRATING TAB 5MG PO PRN (21:55)
[2021-12-05] MEDS: LEVOTHYROXINE 50MCG TABLET (0.05MG) PO SCH (05:37)
[2021-12-05 06:32] VITALS: BP 127/63
[2021-12-05] MEDS: QUEtiapine FUMARATE 50MG TAB PO SCH ×2 (08:46→14:42)
[2021-12-05] MEDS: MULTIVITAMINS/MINERALS THERAP 1 TAB PO SCH (08:55)
[2021-12-05] MEDS: FEXOFENADINE 60MG TAB PO SCH (08:57)
[2021-12-05] MEDS: OMEPRAZOLE 20MG CAP PO SCH (08:57)
[2021-12-05] MEDS: ASPIRIN 81MG ENTERIC TABLET PO SCH (08:57)
[2021-12-05] MEDS: hydroCHLOROthiazide 12.5 MG CAPSULE PO SCH (08:57)
[2021-12-05] MEDS: DOCUSATE SODIUM 100MG CAPSULE PO PRN (08:57)
[2021-12-05] MEDS: SERTRALINE 100 MG TAB PO SCH (08:58)
[2021-12-05] MEDS: TIMOLOL MALEATE 0.5% OPHTH SOLN 5 ML OU SCH ×2 (08:59→21:40)
[2021-12-05] MEDS: ACETAMINOPHEN TAB 650MG DOSE (2X325MG) PO PRN (08:59)
[2021-12-05] MEDS: HYDROXYCHLOROQUINE 200 MG TAB PO SCH ×2 (08:59→21:40)
[2021-12-05] MEDS: OLANZapine ORAL DISINTEGRATING TAB 5MG PO PRN (10:08)
[2021-12-05] MEDS: LORazepam 1 MG TAB PO PRN (10:10)
[2021-12-05] MEDS: LITHIUM CARBONATE 300 MG CAP PO SCH (21:40)
[2021-12-05] MEDS: LATANOPROST 0.005% OPHTH SOLN 2.5 ML OU SCH (21:40)
[2021-12-05] MEDS: QUEtiapine FUMARATE **XR** 200MG TABLET PO SCH (21:40)
[2021-12-06] MEDS: LEVOTHYROXINE 50MCG TABLET (0.05MG) PO SCH (05:56)
[2021-12-06 06:51] VITALS: BP 140/65
[2021-12-06] MEDS: OMEPRAZOLE 20MG CAP PO SCH (09:09)
[2021-12-06] MEDS: MULTIVITAMINS/MINERALS THERAP 1 TAB PO SCH (09:09)
[2021-12-06] MEDS: hydroCHLOROthiazide 12.5 MG CAPSULE PO SCH (09:09)
[2021-12-06] MEDS: TIMOLOL MALEATE 0.5% OPHTH SOLN 5 ML OU SCH ×2 (09:09→21:46)
[2021-12-06] MEDS: HYDROXYCHLOROQUINE 200 MG TAB PO SCH ×2 (09:09→21:48)
[2021-12-06] MEDS: ASPIRIN 81MG ENTERIC TABLET PO SCH (09:09)
[2021-12-06] MEDS: FEXOFENADINE 60MG TAB PO SCH (09:09)
[2021-12-06] MEDS: SERTRALINE 100 MG TAB PO SCH (09:09)
[2021-12-06] MEDS: QUEtiapine FUMARATE 50MG TAB PO SCH ×2 (09:10→14:05)
[2021-12-06 16:22] VITALS: BP 136/66
[2021-12-06] MEDS: LATANOPROST 0.005% OPHTH SOLN 2.5 ML OU SCH (21:46)
[2021-12-06] MEDS: QUEtiapine FUMARATE **XR** 200MG TABLET PO SCH (21:48)
[2021-12-06] MEDS: LITHIUM CARBONATE 300 MG CAP PO SCH (21:48)
[2021-12-06] MEDS: THERAPEUTIC BATH LOTION 240 ML BTL TOP SCH (21:48)
[2021-12-06] MEDS: LORazepam 1 MG TAB PO PRN (21:49)
[2021-12-06] MEDS: OLANZapine ORAL DISINTEGRATING TAB 5MG PO PRN (21:52)
[2021-12-07] MEDS: LEVOTHYROXINE 50MCG TABLET (0.05MG) PO SCH (05:49)
[2021-12-07 06:26] VITALS: BP 142/78
[2021-12-07] MEDS: OMEPRAZOLE 20MG CAP PO SCH (07:46)
[2021-12-07] MEDS: hydroCHLOROthiazide 12.5 MG CAPSULE PO SCH (07:46)
[2021-12-07] MEDS: HYDROXYCHLOROQUINE 200 MG TAB PO SCH ×2 (07:47→20:54)
[2021-12-07] MEDS: FEXOFENADINE 60MG TAB PO SCH (07:47)
[2021-12-07] MEDS: SERTRALINE 100 MG TAB PO SCH (07:47)
[2021-12-07] MEDS: ASPIRIN 81MG ENTERIC TABLET PO SCH (07:47)
[2021-12-07] MEDS: MULTIVITAMINS/MINERALS THERAP 1 TAB PO SCH (07:47)
[2021-12-07] MEDS: QUEtiapine FUMARATE 50MG TAB PO SCH ×2 (07:47→14:24)
[2021-12-07] MEDS: TIMOLOL MALEATE 0.5% OPHTH SOLN 5 ML OU SCH ×2 (07:47→20:52)
[2021-12-07] MEDS: THERAPEUTIC BATH LOTION 240 ML BTL TOP SCH ×2 (07:48→20:52)
[2021-12-07 16:30] VITALS: BP 146/74
[2021-12-07] MEDS: LATANOPROST 0.005% OPHTH SOLN 2.5 ML OU SCH (20:52)
[2021-12-07] MEDS: LORazepam 0.5 MG TAB PO SCH (20:52)
[2021-12-07] MEDS: LITHIUM CARBONATE 300 MG CAP PO SCH (20:52)
[2021-12-07] MEDS: QUEtiapine FUMARATE **XR** 200MG TABLET PO SCH (20:52)
[2021-12-08] MEDS: LEVOTHYROXINE 50MCG TABLET (0.05MG) PO SCH (06:48)
[2021-12-08 06:52] VITALS: BP 124/58
[2021-12-08] MEDS: THERAPEUTIC BATH LOTION 240 ML BTL TOP SCH ×2 (09:26→21:11)
[2021-12-08] MEDS: TIMOLOL MALEATE 0.5% OPHTH SOLN 5 ML OU SCH ×2 (09:27→21:10)
[2021-12-08] MEDS: hydroCHLOROthiazide 12.5 MG CAPSULE PO SCH (09:28)
[2021-12-08] MEDS: FEXOFENADINE 60MG TAB PO SCH (09:28)
[2021-12-08] MEDS: HYDROXYCHLOROQUINE 200 MG TAB PO SCH ×2 (09:29→21:12)
[2021-12-08] MEDS: SERTRALINE 100 MG TAB PO SCH (09:30)
[2021-12-08] MEDS: MULTIVITAMINS/MINERALS THERAP 1 TAB PO SCH (09:30)
[2021-12-08] MEDS: ASPIRIN 81MG ENTERIC TABLET PO SCH (09:30)
[2021-12-08] MEDS: QUEtiapine FUMARATE 50MG TAB PO SCH ×2 (09:30→15:11)
[2021-12-08] MEDS: LORazepam 0.5 MG TAB PO SCH ×2 (09:30→21:11)
[2021-12-08] MEDS: OMEPRAZOLE 20MG CAP PO SCH (09:30)
[2021-12-08 19:02] VITALS: BP 128/52
[2021-12-08] MEDS: LATANOPROST 0.005% OPHTH SOLN 2.5 ML OU SCH (21:10)
[2021-12-08] MEDS: LITHIUM CARBONATE 300 MG CAP PO SCH (21:12)
[2021-12-08] MEDS: QUEtiapine FUMARATE **XR** 200MG TABLET PO SCH (21:12)
[2021-12-08] MEDS: ACETAMINOPHEN TAB 650MG DOSE (2X325MG) PO PRN (21:19)
[2021-12-09] MEDS: LEVOTHYROXINE 50MCG TABLET (0.05MG) PO SCH (05:34)
[2021-12-09 07:03] VITALS: BP 149/70
[2021-12-09] MEDS: TIMOLOL MALEATE 0.5% OPHTH SOLN 5 ML OU SCH ×2 (08:15→22:02)
[2021-12-09] MEDS: MULTIVITAMINS/MINERALS THERAP 1 TAB PO SCH (08:15)
[2021-12-09] MEDS: QUEtiapine FUMARATE 50MG TAB PO SCH ×2 (08:16→14:03)
[2021-12-09] MEDS: hydroCHLOROthiazide 12.5 MG CAPSULE PO SCH (08:16)
[2021-12-09] MEDS: THERAPEUTIC BATH LOTION 240 ML BTL TOP SCH ×2 (08:16→22:03)
[2021-12-09] MEDS: SERTRALINE 100 MG TAB PO SCH (08:16)
[2021-12-09] MEDS: HYDROXYCHLOROQUINE 200 MG TAB PO SCH ×2 (08:16→22:04)
[2021-12-09] MEDS: LORazepam 0.5 MG TAB PO SCH ×2 (08:16→22:04)
[2021-12-09] MEDS: ASPIRIN 81MG ENTERIC TABLET PO SCH (08:17)
[2021-12-09] MEDS: OMEPRAZOLE 20MG CAP PO SCH (08:17)
[2021-12-09] MEDS: FEXOFENADINE 60MG TAB PO SCH (08:17)
[2021-12-09 18:46] VITALS: BP 140/78
[2021-12-09] MEDS: LATANOPROST 0.005% OPHTH SOLN 2.5 ML OU SCH (22:03)
[2021-12-09] MEDS: QUEtiapine FUMARATE **XR** 200MG TABLET PO SCH (22:03)
[2021-12-09] MEDS: LITHIUM CARBONATE 300 MG CAP PO SCH (22:04)
[2021-12-10] MEDS: LEVOTHYROXINE 50MCG TABLET (0.05MG) PO SCH (05:19)
[2021-12-10 06:20] VITALS: BP 101/70
[2021-12-10] MEDS: SERTRALINE 100 MG TAB PO SCH (07:45)
[2021-12-10] MEDS: ASPIRIN 81MG ENTERIC TABLET PO SCH (07:45)
[2021-12-10] MEDS: MULTIVITAMINS/MINERALS THERAP 1 TAB PO SCH (07:45)
[2021-12-10] MEDS: OMEPRAZOLE 20MG CAP PO SCH (07:46)
[2021-12-10] MEDS: QUEtiapine FUMARATE 50MG TAB PO SCH ×2 (07:46→14:02)
[2021-12-10] MEDS: LORazepam 0.5 MG TAB PO SCH ×2 (07:46→21:17)
[2021-12-10] MEDS: TIMOLOL MALEATE 0.5% OPHTH SOLN 5 ML OU SCH ×2 (07:46→21:18)
[2021-12-10] MEDS: HYDROXYCHLOROQUINE 200 MG TAB PO SCH ×2 (07:47→21:18)
[2021-12-10] MEDS: hydroCHLOROthiazide 12.5 MG CAPSULE PO SCH (07:47)
[2021-12-10] MEDS: THERAPEUTIC BATH LOTION 240 ML BTL TOP SCH ×2 (07:47→21:19)
[2021-12-10] MEDS: FEXOFENADINE 60MG TAB PO SCH (07:48)
[2021-12-10 16:39] VITALS: BP 142/66
[2021-12-10] MEDS: QUEtiapine FUMARATE **XR** 200MG TABLET PO SCH (21:18)
[2021-12-10] MEDS: LITHIUM CARBONATE 300 MG CAP PO SCH (21:18)
[2021-12-10] MEDS: LATANOPROST 0.005% OPHTH SOLN 2.5 ML OU SCH (21:18)
[2021-12-11] MEDS: LEVOTHYROXINE 50MCG TABLET (0.05MG) PO SCH (05:59)
[2021-12-11 07:04] VITALS: BP 139/63
[2021-12-11] MEDS: TIMOLOL MALEATE 0.5% OPHTH SOLN 5 ML OU SCH ×2 (07:57→21:25)
[2021-12-11] MEDS: MULTIVITAMINS/MINERALS THERAP 1 TAB PO SCH (07:58)
[2021-12-11] MEDS: hydroCHLOROthiazide 12.5 MG CAPSULE PO SCH (07:58)
[2021-12-11] MEDS: FEXOFENADINE 60MG TAB PO SCH (07:58)
[2021-12-11] MEDS: SERTRALINE 100 MG TAB PO SCH (07:59)
[2021-12-11] MEDS: ASPIRIN 81MG ENTERIC TABLET PO SCH (07:59)
[2021-12-11] MEDS: OMEPRAZOLE 20MG CAP PO SCH (07:59)
[2021-12-11] MEDS: HYDROXYCHLOROQUINE 200 MG TAB PO SCH ×2 (07:59→21:24)
[2021-12-11] MEDS: QUEtiapine FUMARATE 50MG TAB PO SCH ×2 (08:00→14:26)
[2021-12-11] MEDS: LORazepam 0.5 MG TAB PO SCH ×2 (08:00→21:25)
[2021-12-11] MEDS: THERAPEUTIC BATH LOTION 240 ML BTL TOP SCH ×2 (09:00→21:23)
[2021-12-11 16:08] VITALS: BP 120/60
[2021-12-11] MEDS: LITHIUM CARBONATE 300 MG CAP PO SCH (21:23)
[2021-12-11] MEDS: QUEtiapine FUMARATE **XR** 200MG TABLET PO SCH (21:24)
[2021-12-11] MEDS: LATANOPROST 0.005% OPHTH SOLN 2.5 ML OU SCH (21:25)
[2021-12-12 06:00] VITALS: BP 114/55
[2021-12-12] MEDS: LEVOTHYROXINE 50MCG TABLET (0.05MG) PO SCH (06:00)
[2021-12-12] MEDS: DOCUSATE SODIUM 100MG CAPSULE PO PRN (07:37)
[2021-12-12] MEDS: TIMOLOL MALEATE 0.5% OPHTH SOLN 5 ML OU SCH ×2 (07:37→21:35)
[2021-12-12] MEDS: hydroCHLOROthiazide 12.5 MG CAPSULE PO SCH (07:37)
[2021-12-12] MEDS: SERTRALINE 100 MG TAB PO SCH (07:38)
[2021-12-12] MEDS: ASPIRIN 81MG ENTERIC TABLET PO SCH (07:38)
[2021-12-12] MEDS: FEXOFENADINE 60MG TAB PO SCH (07:38)
[2021-12-12] MEDS: HYDROXYCHLOROQUINE 200 MG TAB PO SCH ×2 (07:38→21:36)
[2021-12-12] MEDS: MULTIVITAMINS/MINERALS THERAP 1 TAB PO SCH (07:38)
[2021-12-12] MEDS: LORazepam 0.5 MG TAB PO SCH ×2 (07:38→21:36)
[2021-12-12] MEDS: OMEPRAZOLE 20MG CAP PO SCH (07:38)
[2021-12-12] MEDS: QUEtiapine FUMARATE 50MG TAB PO SCH ×2 (07:38→13:18)
[2021-12-12] MEDS: THERAPEUTIC BATH LOTION 240 ML BTL TOP SCH ×2 (07:39→21:35)
[2021-12-12 07:40] VITALS: BP 120/80
[2021-12-12 16:14] VITALS: BP 123/60
[2021-12-12] MEDS: LITHIUM CARBONATE 300 MG CAP PO SCH (21:36)
[2021-12-12] MEDS: LATANOPROST 0.005% OPHTH SOLN 2.5 ML OU SCH (21:36)
[2021-12-12] MEDS: QUEtiapine FUMARATE **XR** 200MG TABLET PO SCH (21:36)
[2021-12-12] MEDS: MOM 30ML SUSPENSION UDC PO PRN (21:42)
[2021-12-13] MEDS: LEVOTHYROXINE 50MCG TABLET (0.05MG) PO SCH (06:06)
[2021-12-13 06:52] VITALS: BP 151/67
[2021-12-13] MEDS: QUEtiapine FUMARATE 50MG TAB PO SCH (08:24)
[2021-12-13] MEDS: FEXOFENADINE 60MG TAB PO SCH (08:25)
[2021-12-13] MEDS: SERTRALINE 100 MG TAB PO SCH (08:25)
[2021-12-13] MEDS: MULTIVITAMINS/MINERALS THERAP 1 TAB PO SCH (08:25)
[2021-12-13] MEDS: HYDROXYCHLOROQUINE 200 MG TAB PO SCH (08:25)
[2021-12-13] MEDS: LORazepam 0.5 MG TAB PO SCH (08:25)
[2021-12-13] MEDS: hydroCHLOROthiazide 12.5 MG CAPSULE PO SCH (08:25)
[2021-12-13] MEDS: ASPIRIN 81MG ENTERIC TABLET PO SCH (08:25)
[2021-12-13] MEDS: OMEPRAZOLE 20MG CAP PO SCH (08:25)
[2021-12-13] MEDS: THERAPEUTIC BATH LOTION 240 ML BTL TOP SCH (08:26)
[2021-12-13] MEDS: TIMOLOL MALEATE 0.5% OPHTH SOLN 5 ML OU SCH (08:27)
[2021-12-13] MEDS ORDERED: ATIV1TAB10 PO (09:30)
[2021-12-13] MEDS ORDERED: LITH300C PO (09:30)
[2021-12-13] MEDS ORDERED: LITH300T2 PO (11:53)
[2021-12-13] MEDS ORDERED: LORA1TAB4 PO (11:53)
[2021-12-13] MEDS ORDERED: ZOLO100T PO (15:04)
== END 2021-12-13 13:00 | disposition home or self-care (01) | DRG 885 ==
LOC: M ED 11:20 → M ED INP 16:54 → M PSY 20:25
PROVIDERS: ADMIT Student in an Organized Health Care Education/Training Program; ATTEND Psychiatry & Neurology Psychiatry
DX: F25.0 Schizoaffective disorder, bipolar type (principal); R45.851 Suicidal ideations; F79 Unspecified intellectual disabilities; Z91.14 Patient's other noncompliance with medication regimen; Z91.51 Personal history of suicidal behavior; Z20.822 Contact with and (suspected) exposure to COVID-19; Z79.82 Long term (current) use of aspirin; Z79.899 Other long term (current) drug therapy; Z88.1 Allergy status to other antibiotic agents; Z88.5 Allergy status to narcotic agent; Z88.8 Allergy status to other drugs, medicaments and biological substances; Z63.8 Other specified problems related to primary support group; I10 Essential (primary) hypertension; G47.33 Obstructive sleep apnea (adult) (pediatric); Z86.718 Personal history of other venous thrombosis and embolism; E03.9 Hypothyroidism, unspecified; Z86.16 Personal history of COVID-19; K21.9 Gastro-esophageal reflux disease without esophagitis; Z90.49 Acquired absence of other specified parts of digestive tract

== ENCOUNTER 2022-01-13 17:03 | Emergency (ER) | payer MEDICARE, MEDICAID ==
[~2022-01-13] VITALS: Ht 157.5 cm; Wt 98.2 kg
[~2022-01-13 17:03] MED LIST changes: +ATIV1TAB10 PO; +LORA1TAB4 PO
[2022-01-13 19:02] LABS: HEMATOCRIT 40.1 % (36.0-47.0); HEMOGLOBIN 12.5 g/dl (12.0-15.5); MEAN CORPUSCULAR HEMOGLOBIN 28.6 pg (27.0-33.0); MEAN CORPUSCULAR HGB CONC 31.2 g/dl (32.0-36.5); MEAN CORPUSCULAR VOLUME 91.8 fl (80.0-96.0); PLATELET COUNT, AUTOMATED 228 10^3/uL (150-450); RED BLOOD COUNT 4.37 10^6/uL (4.00-5.40); WHITE BLOOD COUNT 8.7 10^3/uL (4.0-10.0)
[2022-01-13 19:32] LABS: AMPHETAMINES LEVEL URINE NEGATIVE (NEGATIVE); BARBITURATES URINE NEGATIVE (NEGATIVE); BENZODIAZEPINES URINE NEGATIVE (NEGATIVE); CANNABINOIDS URINE NEGATIVE (NEGATIVE); COCAINE METABOLITE URINE NEGATIVE (NEGATIVE); METHADONE URINE NEGATIVE (NEGATIVE); OPIATES URINE NEGATIVE (NEGATIVE); PHENCYCLIDINE URINE NEGATIVE (NEGATIVE)
[2022-01-13 19:45] LABS: ACETAMINOPHEN LEVEL < 2.0 UG/ML (10.0-30.0); ALBUMIN 3.7 GM/DL (3.2-5.2); ALT/SGPT 40 U/L (12-78); BILIRUBIN,DIRECT < 0.1 MG/DL (0.0-0.2); BILIRUBIN,TOTAL 0.2 MG/DL (0.2-1.0); BLOOD UREA NITROGEN 15 MG/DL (7-18); CALCIUM LEVEL 9.4 MG/DL (8.8-10.2); CARBON DIOXIDE LEVEL 29 MEQ/L (21-32); CHLORIDE LEVEL 107 MEQ/L (98-107); CREATININE FOR GFR 0.55 MG/DL (0.55-1.30); ETHYL ALCOHOL (ETHANOL) < 0.003 % (0.000-0.010); GLOMERULAR FILTRATION RATE > 60.0 (>45); GLUCOSE, FASTING 91 MG/DL (70-100); POTASSIUM SERUM 3.9 MEQ/L (3.5-5.1); SALICYLATE LEVEL < 1.7 MG/DL (5.0-30.0); SODIUM LEVEL 141 MEQ/L (136-145); TOTAL PROTEIN 7.2 GM/DL (6.4-8.2)
[2022-01-13 21:23] VITALS: BP 128/68
== END 2022-01-13 21:25 | disposition home or self-care (01) ==
LOC: M ED 17:03
DX: F25.9 Schizoaffective disorder, unspecified (principal); E55.9 Vitamin D deficiency, unspecified; K21.9 Gastro-esophageal reflux disease without esophagitis; J44.9 Chronic obstructive pulmonary disease, unspecified; F32.9 Major depressive disorder, single episode, unspecified; Z86.718 Personal history of other venous thrombosis and embolism; Z79.82 Long term (current) use of aspirin; Z79.899 Other long term (current) drug therapy; Z88.8 Allergy status to other drugs, medicaments and biological substances

== ENCOUNTER 2022-01-29 00:33 | Emergency (ER) | payer MEDICARE, MEDICAID ==
[2022-01-29] MEDS ORDERED: RISP-8 PO (00:49)
[2022-01-29] MEDS ORDERED: TIZA1TAB12 PO (08:51)
[2022-01-29 10:21] VITALS: BP 159/74
[2022-01-29] MEDS ORDERED: DICL20GE TP (23:41)
[2022-01-29] MEDS ORDERED: LORA1TAB4 PO (23:41)
[2022-01-29] MEDS ORDERED: LITH300T2 PO (23:41)
[2022-01-29] MEDS ORDERED: LACT3000 PO (23:41)
[2022-01-29] MEDS ORDERED: med rec comment (23:42)
== END 2022-01-29 10:24 | disposition home or self-care (01) ==
LOC: M ED 00:33

== ENCOUNTER 2022-01-29 19:47 | Inpatient (IN) | payer MEDICAID, MEDICARE, OTHER ==
[~2022-01-29] VITALS: Ht 162.6 cm; Wt 99.9 kg
[~2022-01-29 19:47] MED LIST changes: +RISP-8 PO; +TIZA1TAB12 PO
[2022-01-29 20:45] LABS: HEMATOCRIT 40.6 % (36.0-47.0); HEMOGLOBIN 12.5 g/dl (12.0-15.5); MEAN CORPUSCULAR HEMOGLOBIN 27.7 pg (27.0-33.0); MEAN CORPUSCULAR HGB CONC 30.8 g/dl (32.0-36.5); MEAN CORPUSCULAR VOLUME 89.8 fl (80.0-96.0); PLATELET COUNT, AUTOMATED 170 10^3/uL (150-450); RED BLOOD COUNT 4.52 10^6/uL (4.00-5.40); WHITE BLOOD COUNT 6.1 10^3/uL (4.0-10.0)
[2022-01-29 21:29] LABS: ACETAMINOPHEN LEVEL < 2.0 UG/ML (10.0-30.0); ALBUMIN 3.5 GM/DL (3.2-5.2); ALT/SGPT 32 U/L (12-78); BILIRUBIN,DIRECT 0.1 MG/DL (0.0-0.2); BILIRUBIN,TOTAL 0.4 MG/DL (0.2-1.0); BLOOD UREA NITROGEN 13 MG/DL (7-18); CALCIUM LEVEL 9.3 MG/DL (8.8-10.2); CARBON DIOXIDE LEVEL 29 MEQ/L (21-32); CHLORIDE LEVEL 108 MEQ/L (98-107); CREATININE FOR GFR 0.58 MG/DL (0.55-1.30); ETHYL ALCOHOL (ETHANOL) < 0.003 % (0.000-0.010); GLOMERULAR FILTRATION RATE > 60.0 (>45); GLUCOSE, FASTING 89 MG/DL (70-100); POTASSIUM SERUM 3.6 MEQ/L (3.5-5.1); SALICYLATE LEVEL < 1.7 MG/DL (5.0-30.0); SODIUM LEVEL 142 MEQ/L (136-145); TOTAL PROTEIN 6.9 GM/DL (6.4-8.2)
[2022-01-29] MEDS ORDERED: DICL20GE TP (23:41)
[2022-01-29] MEDS ORDERED: LITH300T2 PO (23:41)
[2022-01-29] MEDS ORDERED: LORA1TAB4 PO (23:41)
[2022-01-29] MEDS ORDERED: LACT3000 PO (23:41)
[2022-01-29] MEDS ORDERED: med rec comment (23:42)
[2022-01-29] MEDS ORDERED: HOME MED LIST COMPLETE! XX SCH (23:45)
[2022-01-30 00:33] LABS: AMPHETAMINES LEVEL URINE NEGATIVE (NEGATIVE); BARBITURATES URINE NEGATIVE (NEGATIVE); BENZODIAZEPINES URINE NEGATIVE (NEGATIVE); CANNABINOIDS URINE NEGATIVE (NEGATIVE); COCAINE METABOLITE URINE NEGATIVE (NEGATIVE); METHADONE URINE NEGATIVE (NEGATIVE); OPIATES URINE NEGATIVE (NEGATIVE); PHENCYCLIDINE URINE NEGATIVE (NEGATIVE)
[2022-01-30 00:37] LABS: RSV AMPLIFICATION NEGATIVE (NEGATIVE)
[2022-01-30] MEDS ORDERED: QUEtiapine FUMARATE 50MG TAB PO SCH (09:00)
[2022-01-30] MEDS: MULTIVITAMINS/MINERALS THERAP 1 TAB PO SCH (09:11)
[2022-01-30] MEDS: QUEtiapine FUMARATE 50MG TAB PO SCH ×2 (09:11→14:56)
[2022-01-30] MEDS: SERTRALINE 100 MG TAB PO SCH (09:11)
[2022-01-30] MEDS: hydroCHLOROthiazide 12.5 MG CAPSULE PO SCH (09:11)
[2022-01-30] MEDS: OMEPRAZOLE 20MG CAP PO SCH (09:11)
[2022-01-30] MEDS: HYDROXYCHLOROQUINE 200 MG TAB PO SCH ×2 (09:11→20:03)
[2022-01-30] MEDS: risperiDONE 1 MG TAB PO SCH ×2 (09:12→20:03)
[2022-01-30] MEDS: CALCIUM/VITAMIN D 500 MG TAB PO SCH ×2 (09:12→20:03)
[2022-01-30] MEDS: FEXOFENADINE 60MG TAB PO SCH (09:12)
[2022-01-30] MEDS: LORazepam 1 MG TAB PO SCH ×2 (09:12→20:03)
[2022-01-30] MEDS: ASPIRIN 81 MG CHEW TABLET PO SCH (09:12)
[2022-01-30] MEDS: LEVOTHYROXINE 50MCG TABLET (0.05MG) PO SCH (09:20)
[2022-01-30] MEDS: TIMOLOL MALEATE 0.5% OPHTH SOLN 5 ML OU SCH ×2 (09:20→20:04)
[2022-01-30] MEDS ORDERED: QUEtiapine FUMARATE **XR** 200MG TABLET PO SCH (21:00)
[2022-01-30] MEDS ORDERED: LATANOPROST 0.005% OPHTH SOLN 2.5 ML OU SCH (21:00)
[2022-01-30] MEDS ORDERED: LITHIUM CARBONATE 300 MG CAP PO SCH (21:00)
[2022-01-31] MEDS: LEVOTHYROXINE 50MCG TABLET (0.05MG) PO SCH (05:42)
[2022-01-31] MEDS ORDERED: LEVOTHYROXINE 50MCG TABLET (0.05MG) PO SCH (06:00)
[2022-01-31] MEDS: QUEtiapine FUMARATE 50MG TAB PO SCH ×2 (08:00→16:34)
[2022-01-31] MEDS ORDERED: IBUPROFEN 600MG TAB PO ONE (08:45)
[2022-01-31] MEDS: ASPIRIN 81 MG CHEW TABLET PO SCH (09:00)
[2022-01-31] MEDS: LORazepam 1 MG TAB PO SCH ×2 (09:00→21:29)
[2022-01-31] MEDS: FEXOFENADINE 60MG TAB PO SCH (09:00)
[2022-01-31] MEDS: risperiDONE 1 MG TAB PO SCH ×2 (09:00→21:29)
[2022-01-31] MEDS: HYDROXYCHLOROQUINE 200 MG TAB PO SCH ×2 (09:00→21:29)
[2022-01-31] MEDS: CALCIUM/VITAMIN D 500 MG TAB PO SCH ×2 (09:00→21:29)
[2022-01-31] MEDS: OMEPRAZOLE 20MG CAP PO SCH (09:00)
[2022-01-31] MEDS: TIMOLOL MALEATE 0.5% OPHTH SOLN 5 ML OU SCH (09:00)
[2022-01-31] MEDS: SERTRALINE 100 MG TAB PO SCH (09:00)
[2022-01-31] MEDS: hydroCHLOROthiazide 12.5 MG CAPSULE PO SCH (09:00)
[2022-01-31] MEDS: MULTIVITAMINS/MINERALS THERAP 1 TAB PO SCH (09:00)
[2022-01-31] MEDS: NICOTINE 21MG/24HR 1 EA TRANSDERMAL TD SCH (09:00)
[2022-01-31] MEDS ORDERED: POLYVINYL ALCOHOL OPHTH SOLN 15 ML(LIQUITEARS) OU PRN (13:15)
[2022-01-31] MEDS ORDERED: LACTIC ACID 12% LOTION 225 GM BTL TOP PRN (13:15)
[2022-01-31] MEDS ORDERED: MOM 30ML SUSPENSION UDC PO PRN (13:15)
[2022-01-31] MEDS ORDERED: MAALOX 30 ML SUSP *UDC PO PRN (13:15)
[2022-01-31] MEDS ORDERED: traZODone 50 MG TAB PO PRN (13:15)
[2022-01-31] MEDS ORDERED: LIDOCAINE VISCOUS 2% SOLN 15ML UDC SSP PRN (13:15)
[2022-01-31 16:10] VITALS: BP 139/65
[2022-01-31] MEDS: QUEtiapine FUMARATE **XR** 200MG TABLET PO SCH (21:29)
[2022-01-31] MEDS: LITHIUM CARBONATE 300 MG CAP PO SCH (21:29)
[2022-01-31] MEDS: LATANOPROST 0.005% OPHTH SOLN 2.5 ML OU SCH (21:29)
[2022-02-01] MEDS: LEVOTHYROXINE 50MCG TABLET (0.05MG) PO SCH (05:50)
[2022-02-01 06:31] VITALS: BP 157/86
[2022-02-01] MEDS: SERTRALINE 100 MG TAB PO SCH (07:24)
[2022-02-01] MEDS: LORazepam 1 MG TAB PO SCH ×2 (07:25→21:25)
[2022-02-01] MEDS: QUEtiapine FUMARATE 50MG TAB PO SCH ×2 (07:25→13:33)
[2022-02-01] MEDS: CALCIUM/VITAMIN D 500 MG TAB PO SCH ×2 (07:25→21:26)
[2022-02-01] MEDS: risperiDONE 1 MG TAB PO SCH ×2 (07:25→21:26)
[2022-02-01] MEDS: DOCUSATE SODIUM 100MG CAPSULE PO PRN (07:25)
[2022-02-01] MEDS: ASPIRIN 81MG ENTERIC TABLET PO SCH (07:26)
[2022-02-01] MEDS: OMEPRAZOLE 20MG CAP PO SCH (07:26)
[2022-02-01] MEDS: MULTIVITAMINS/MINERALS THERAP 1 TAB PO SCH (07:26)
[2022-02-01] MEDS: hydroCHLOROthiazide 12.5 MG CAPSULE PO SCH (07:27)
[2022-02-01] MEDS: NICOTINE 21MG/24HR 1 EA TRANSDERMAL TD SCH (07:28)
[2022-02-01] MEDS: HYDROXYCHLOROQUINE 200 MG TAB PO SCH ×2 (07:33→21:00)
[2022-02-01 16:45] VITALS: BP 143/70
[2022-02-01] MEDS: LATANOPROST 0.005% OPHTH SOLN 2.5 ML OU SCH (21:25)
[2022-02-01] MEDS: QUEtiapine FUMARATE **XR** 200MG TABLET PO SCH (21:26)
[2022-02-01] MEDS: LITHIUM CARBONATE 300 MG CAP PO SCH (21:26)
[2022-02-02] MEDS: LEVOTHYROXINE 50MCG TABLET (0.05MG) PO SCH (05:34)
[2022-02-02 06:24] VITALS: BP 134/71
[2022-02-02] MEDS: QUEtiapine FUMARATE 50MG TAB PO SCH ×2 (07:27→14:06)
[2022-02-02] MEDS: HYDROXYCHLOROQUINE 200 MG TAB PO SCH ×2 (08:47→21:00)
[2022-02-02] MEDS: hydroCHLOROthiazide 12.5 MG CAPSULE PO SCH (08:47)
[2022-02-02] MEDS: risperiDONE 1 MG TAB PO SCH (08:47)
[2022-02-02] MEDS: CALCIUM/VITAMIN D 500 MG TAB PO SCH ×2 (08:47→21:46)
[2022-02-02] MEDS: SERTRALINE 100 MG TAB PO SCH (08:47)
[2022-02-02] MEDS: OMEPRAZOLE 20MG CAP PO SCH (08:47)
[2022-02-02] MEDS: ASPIRIN 81MG ENTERIC TABLET PO SCH (08:47)
[2022-02-02] MEDS: MULTIVITAMINS/MINERALS THERAP 1 TAB PO SCH (08:47)
[2022-02-02] MEDS: LORazepam 1 MG TAB PO SCH ×2 (08:47→21:47)
[2022-02-02] MEDS: NICOTINE 21MG/24HR 1 EA TRANSDERMAL TD SCH (08:47)
[2022-02-02] MEDS: TIMOLOL MALEATE 0.5% OPHTH SOLN 5 ML OU SCH ×2 (12:23→21:47)
[2022-02-02 16:42] VITALS: BP 117/70
[2022-02-02] MEDS: LATANOPROST 0.005% OPHTH SOLN 2.5 ML OU SCH (21:46)
[2022-02-02] MEDS: QUEtiapine FUMARATE **XR** 200MG TABLET PO SCH (21:47)
[2022-02-02] MEDS: LITHIUM CARBONATE 300 MG CAP PO SCH (21:47)
[2022-02-03] MEDS: LEVOTHYROXINE 50MCG TABLET (0.05MG) PO SCH (05:54)
[2022-02-03 07:19] VITALS: BP 124/67
[2022-02-03] MEDS: hydroCHLOROthiazide 12.5 MG CAPSULE PO SCH (08:47)
[2022-02-03] MEDS: QUEtiapine FUMARATE 50MG TAB PO SCH ×2 (08:47→14:50)
[2022-02-03] MEDS: CALCIUM/VITAMIN D 500 MG TAB PO SCH ×2 (08:47→21:22)
[2022-02-03] MEDS: TIMOLOL MALEATE 0.5% OPHTH SOLN 5 ML OU SCH ×2 (08:48→21:21)
[2022-02-03] MEDS: SERTRALINE 100 MG TAB PO SCH (08:48)
[2022-02-03] MEDS: MULTIVITAMINS/MINERALS THERAP 1 TAB PO SCH (08:49)
[2022-02-03] MEDS: ASPIRIN 81MG ENTERIC TABLET PO SCH (08:49)
[2022-02-03] MEDS: LORazepam 1 MG TAB PO SCH ×2 (08:49→21:22)
[2022-02-03] MEDS: HYDROXYCHLOROQUINE 200 MG TAB PO SCH ×2 (08:50→21:00)
[2022-02-03] MEDS: OMEPRAZOLE 20MG CAP PO SCH (08:50)
[2022-02-03] MEDS: NICOTINE 21MG/24HR 1 EA TRANSDERMAL TD SCH (08:51)
[2022-02-03] MEDS: DOCUSATE SODIUM 100MG CAPSULE PO PRN (08:53)
[2022-02-03 09:01] LABS: CHOLESTEROL RISK RATIO 2.29 (<5)
[2022-02-03 17:36] VITALS: BP 126/61
[2022-02-03] MEDS: IBUPROFEN 600MG TAB PO SCH (18:03)
[2022-02-03] MEDS: LATANOPROST 0.005% OPHTH SOLN 2.5 ML OU SCH (21:21)
[2022-02-03] MEDS: QUEtiapine FUMARATE **XR** 200MG TABLET PO SCH (21:21)
[2022-02-03] MEDS: risperiDONE 2 MG TAB PO SCH (21:22)
[2022-02-03] MEDS: LITHIUM CARBONATE 300 MG CAP PO SCH (21:22)
[2022-02-04] MEDS: IBUPROFEN 600MG TAB PO SCH ×3 (00:06→12:00)
[2022-02-04] MEDS: LEVOTHYROXINE 50MCG TABLET (0.05MG) PO SCH (05:29)
[2022-02-04 06:50] VITALS: BP 134/63
[2022-02-04] MEDS: ASPIRIN 81MG ENTERIC TABLET PO SCH (08:47)
[2022-02-04] MEDS: TIMOLOL MALEATE 0.5% OPHTH SOLN 5 ML OU SCH ×2 (08:47→21:33)
[2022-02-04] MEDS: QUEtiapine FUMARATE 50MG TAB PO SCH ×2 (08:47→13:23)
[2022-02-04] MEDS: SERTRALINE 100 MG TAB PO SCH (08:47)
[2022-02-04] MEDS: MULTIVITAMINS/MINERALS THERAP 1 TAB PO SCH (08:47)
[2022-02-04] MEDS: LORazepam 1 MG TAB PO SCH ×2 (08:47→21:33)
[2022-02-04] MEDS: hydroCHLOROthiazide 12.5 MG CAPSULE PO SCH (08:47)
[2022-02-04] MEDS: HYDROXYCHLOROQUINE 200 MG TAB PO SCH ×2 (08:47→21:00)
[2022-02-04] MEDS: OMEPRAZOLE 20MG CAP PO SCH (08:47)
[2022-02-04] MEDS: CALCIUM/VITAMIN D 500 MG TAB PO SCH ×2 (08:47→21:33)
[2022-02-04 16:38] VITALS: BP 141/68
[2022-02-04] MEDS: LITHIUM CARBONATE 300 MG CAP PO SCH (21:32)
[2022-02-04] MEDS: LATANOPROST 0.005% OPHTH SOLN 2.5 ML OU SCH (21:33)
[2022-02-04] MEDS: QUEtiapine FUMARATE **XR** 200MG TABLET PO SCH (21:33)
[2022-02-04] MEDS: risperiDONE 2 MG TAB PO SCH (21:33)
[2022-02-05] MEDS: LEVOTHYROXINE 50MCG TABLET (0.05MG) PO SCH (05:21)
[2022-02-05 06:42] VITALS: BP 125/70
[2022-02-05] MEDS: OMEPRAZOLE 20MG CAP PO SCH (08:34)
[2022-02-05] MEDS: CALCIUM/VITAMIN D 500 MG TAB PO SCH ×2 (08:34→20:20)
[2022-02-05] MEDS: LORazepam 1 MG TAB PO SCH ×2 (08:34→20:20)
[2022-02-05] MEDS: MULTIVITAMINS/MINERALS THERAP 1 TAB PO SCH (08:34)
[2022-02-05] MEDS: HYDROXYCHLOROQUINE 200 MG TAB PO SCH ×2 (08:35→20:21)
[2022-02-05] MEDS: ASPIRIN 81MG ENTERIC TABLET PO SCH (08:35)
[2022-02-05] MEDS: QUEtiapine FUMARATE 50MG TAB PO SCH ×2 (08:35→13:19)
[2022-02-05] MEDS: TIMOLOL MALEATE 0.5% OPHTH SOLN 5 ML OU SCH ×2 (08:35→20:21)
[2022-02-05] MEDS: hydroCHLOROthiazide 12.5 MG CAPSULE PO SCH (08:35)
[2022-02-05] MEDS: SERTRALINE 100 MG TAB PO SCH (08:35)
[2022-02-05 16:21] VITALS: BP 139/67
[2022-02-05] MEDS: QUEtiapine FUMARATE **XR** 200MG TABLET PO SCH (20:20)
[2022-02-05] MEDS: risperiDONE 2 MG TAB PO SCH (20:21)
[2022-02-05] MEDS: LITHIUM CARBONATE 300 MG CAP PO SCH (20:21)
[2022-02-05] MEDS: LATANOPROST 0.005% OPHTH SOLN 2.5 ML OU SCH (20:21)
[2022-02-06] MEDS: LEVOTHYROXINE 50MCG TABLET (0.05MG) PO SCH (05:24)
[2022-02-06 07:01] VITALS: BP 139/67
[2022-02-06] MEDS: MULTIVITAMINS/MINERALS THERAP 1 TAB PO SCH (08:26)
[2022-02-06] MEDS: hydroCHLOROthiazide 12.5 MG CAPSULE PO SCH (08:27)
[2022-02-06] MEDS: ASPIRIN 81MG ENTERIC TABLET PO SCH (08:28)
[2022-02-06] MEDS: CALCIUM/VITAMIN D 500 MG TAB PO SCH ×2 (08:28→21:41)
[2022-02-06] MEDS: LORazepam 1 MG TAB PO SCH ×2 (08:28→21:41)
[2022-02-06] MEDS: OMEPRAZOLE 20MG CAP PO SCH (08:28)
[2022-02-06] MEDS: SERTRALINE 100 MG TAB PO SCH (08:28)
[2022-02-06] MEDS: QUEtiapine FUMARATE 50MG TAB PO SCH ×2 (08:29→13:53)
[2022-02-06] MEDS: HYDROXYCHLOROQUINE 200 MG TAB PO SCH ×2 (09:00→21:00)
[2022-02-06] MEDS: TIMOLOL MALEATE 0.5% OPHTH SOLN 5 ML OU SCH ×2 (09:42→21:41)
[2022-02-06 16:29] VITALS: BP 132/78
[2022-02-06] MEDS: LITHIUM CARBONATE 300 MG CAP PO SCH (21:41)
[2022-02-06] MEDS: LATANOPROST 0.005% OPHTH SOLN 2.5 ML OU SCH (21:41)
[2022-02-06] MEDS: risperiDONE 2 MG TAB PO SCH (21:41)
[2022-02-06] MEDS: QUEtiapine FUMARATE **XR** 200MG TABLET PO SCH (21:41)
[2022-02-07] MEDS: LEVOTHYROXINE 50MCG TABLET (0.05MG) PO SCH (05:21)
[2022-02-07 06:31] VITALS: BP 159/76
[2022-02-07] MEDS: hydroCHLOROthiazide 12.5 MG CAPSULE PO SCH (08:47)
[2022-02-07] MEDS: CALCIUM/VITAMIN D 500 MG TAB PO SCH ×2 (08:47→21:34)
[2022-02-07] MEDS: ASPIRIN 81MG ENTERIC TABLET PO SCH (08:47)
[2022-02-07] MEDS: LORazepam 1 MG TAB PO SCH ×2 (08:48→21:33)
[2022-02-07] MEDS: QUEtiapine FUMARATE 50MG TAB PO SCH ×2 (08:48→13:23)
[2022-02-07] MEDS: MULTIVITAMINS/MINERALS THERAP 1 TAB PO SCH (08:49)
[2022-02-07] MEDS: OMEPRAZOLE 20MG CAP PO SCH (08:49)
[2022-02-07] MEDS: SERTRALINE 100 MG TAB PO SCH (08:50)
[2022-02-07] MEDS: TIMOLOL MALEATE 0.5% OPHTH SOLN 5 ML OU SCH ×2 (08:50→21:29)
[2022-02-07] MEDS: HYDROXYCHLOROQUINE 200 MG TAB PO SCH ×2 (08:53→21:00)
[2022-02-07] MEDS: IBUPROFEN 600MG TAB PO PRN (08:55)
[2022-02-07] MEDS: LITHIUM CARBONATE 300 MG CAP PO SCH (21:34)
[2022-02-07] MEDS: LATANOPROST 0.005% OPHTH SOLN 2.5 ML OU SCH (21:34)
[2022-02-07] MEDS: QUEtiapine FUMARATE **XR** 200MG TABLET PO SCH (21:34)
[2022-02-07] MEDS: risperiDONE 2 MG TAB PO SCH (21:34)
[2022-02-07] MEDS: OLANZapine ORAL DISINTEGRATING TAB 5MG PO PRN (23:29)
[2022-02-08] MEDS: LEVOTHYROXINE 50MCG TABLET (0.05MG) PO SCH (05:16)
[2022-02-08 06:54] VITALS: BP 138/70
[2022-02-08] MEDS: LORazepam 1 MG TAB PO SCH ×2 (08:45→20:37)
[2022-02-08] MEDS: SERTRALINE 100 MG TAB PO SCH (08:46)
[2022-02-08] MEDS: ASPIRIN 81MG ENTERIC TABLET PO SCH (08:46)
[2022-02-08] MEDS: OMEPRAZOLE 20MG CAP PO SCH (08:46)
[2022-02-08] MEDS: MULTIVITAMINS/MINERALS THERAP 1 TAB PO SCH (08:46)
[2022-02-08] MEDS: QUEtiapine FUMARATE 50MG TAB PO SCH ×2 (08:47→13:53)
[2022-02-08] MEDS: CALCIUM/VITAMIN D 500 MG TAB PO SCH ×2 (08:47→20:38)
[2022-02-08] MEDS: TIMOLOL MALEATE 0.5% OPHTH SOLN 5 ML OU SCH ×2 (08:47→20:37)
[2022-02-08] MEDS: hydroCHLOROthiazide 12.5 MG CAPSULE PO SCH (08:56)
[2022-02-08] MEDS: HYDROXYCHLOROQUINE 200 MG TAB PO SCH ×2 (09:00→20:32)
[2022-02-08] MEDS: LATANOPROST 0.005% OPHTH SOLN 2.5 ML OU SCH (20:37)
[2022-02-08] MEDS: QUEtiapine FUMARATE **XR** 200MG TABLET PO SCH (20:38)
[2022-02-08] MEDS: risperiDONE 2 MG TAB PO SCH (20:38)
[2022-02-08] MEDS: LITHIUM CARBONATE 300 MG CAP PO SCH (20:38)
[2022-02-09] MEDS: LEVOTHYROXINE 50MCG TABLET (0.05MG) PO SCH (05:44)
[2022-02-09 06:22] VITALS: BP 153/71
[2022-02-09] MEDS: TIMOLOL MALEATE 0.5% OPHTH SOLN 5 ML OU SCH ×2 (08:48→21:06)
[2022-02-09] MEDS: MULTIVITAMINS/MINERALS THERAP 1 TAB PO SCH (08:49)
[2022-02-09] MEDS: LORazepam 1 MG TAB PO SCH ×2 (08:49→21:06)
[2022-02-09] MEDS: CALCIUM/VITAMIN D 500 MG TAB PO SCH ×2 (08:49→21:07)
[2022-02-09] MEDS: SERTRALINE 100 MG TAB PO SCH (08:49)
[2022-02-09] MEDS: ASPIRIN 81MG ENTERIC TABLET PO SCH (08:49)
[2022-02-09] MEDS: OMEPRAZOLE 20MG CAP PO SCH (08:49)
[2022-02-09] MEDS: hydroCHLOROthiazide 12.5 MG CAPSULE PO SCH (08:49)
[2022-02-09] MEDS: QUEtiapine FUMARATE 50MG TAB PO SCH ×2 (08:49→13:59)
[2022-02-09] MEDS: HYDROXYCHLOROQUINE 200 MG TAB PO SCH ×2 (08:50→21:00)
[2022-02-09] MEDS: IBUPROFEN 600MG TAB PO PRN (09:29)
[2022-02-09 18:18] VITALS: BP 142/63
[2022-02-09] MEDS: LATANOPROST 0.005% OPHTH SOLN 2.5 ML OU SCH (21:06)
[2022-02-09] MEDS: LITHIUM CARBONATE 300 MG CAP PO SCH (21:07)
[2022-02-09] MEDS: risperiDONE 2 MG TAB PO SCH (21:07)
[2022-02-09] MEDS: QUEtiapine FUMARATE **XR** 200MG TABLET PO SCH (21:07)
[2022-02-09] MEDS: OLANZapine ORAL DISINTEGRATING TAB 5MG PO PRN (23:49)
[2022-02-10] MEDS: LEVOTHYROXINE 50MCG TABLET (0.05MG) PO SCH (05:42)
[2022-02-10 06:49] VITALS: BP 146/71
[2022-02-10] MEDS: HYDROXYCHLOROQUINE 200 MG TAB PO SCH (09:00)
[2022-02-10] MEDS: LORazepam 1 MG TAB PO SCH (09:25)
[2022-02-10] MEDS: TIMOLOL MALEATE 0.5% OPHTH SOLN 5 ML OU SCH (09:25)
[2022-02-10] MEDS: IBUPROFEN 600MG TAB PO PRN (09:25)
[2022-02-10] MEDS: hydroCHLOROthiazide 12.5 MG CAPSULE PO SCH (09:26)
[2022-02-10] MEDS: ASPIRIN 81MG ENTERIC TABLET PO SCH (09:26)
[2022-02-10] MEDS: OMEPRAZOLE 20MG CAP PO SCH (09:26)
[2022-02-10] MEDS: SERTRALINE 100 MG TAB PO SCH (09:27)
[2022-02-10] MEDS: MULTIVITAMINS/MINERALS THERAP 1 TAB PO SCH (09:27)
[2022-02-10] MEDS: QUEtiapine FUMARATE 50MG TAB PO SCH (09:27)
[2022-02-10] MEDS: CALCIUM/VITAMIN D 500 MG TAB PO SCH (09:27)
[2022-02-10] MEDS ORDERED: RISP-9 PO (10:29)
== END 2022-02-10 12:24 | disposition home or self-care (01) | DRG 885 ==
LOC: M ED 19:47 → M ED INP 01-31 13:11 → M PSY 01-31 15:37
PROVIDERS: ADMIT Psychiatry & Neurology Psychiatry; ATTEND Psychiatry & Neurology Psychiatry
DX: F25.0 Schizoaffective disorder, bipolar type (principal); R45.851 Suicidal ideations; F79 Unspecified intellectual disabilities; F60.3 Borderline personality disorder; F41.9 Anxiety disorder, unspecified; Z79.899 Other long term (current) drug therapy; Z88.8 Allergy status to other drugs, medicaments and biological substances; Z79.82 Long term (current) use of aspirin; K21.9 Gastro-esophageal reflux disease without esophagitis; I10 Essential (primary) hypertension; G47.33 Obstructive sleep apnea (adult) (pediatric); E03.9 Hypothyroidism, unspecified; Z86.16 Personal history of COVID-19; Z86.718 Personal history of other venous thrombosis and embolism; Z91.14 Patient's other noncompliance with medication regimen

== ENCOUNTER 2022-02-14 00:21 | Emergency (ER) | payer MEDICARE ==
[~2022-02-14 00:21] MED LIST changes: +DICL20GE TP; +LACT3000 PO; +RISP-9 PO; +med rec comment
[2022-02-14 01:25] VITALS: BP 190/90
[2022-02-14] MEDS ORDERED: hydrALAZINE 20MG/ML 1ML VIAL (J0360 PER 20MG) IV STA (01:31)
[2022-02-14 01:35] LABS: BASO % 0.5 % (0.0-1.0); EOS # 0.2 10^3/uL (0.0-0.5); EOS % 3.5 % (0.0-3.0); HEMATOCRIT 36.9 % (36.0-47.0); HEMOGLOBIN 11.3 g/dl (12.0-15.5); LYMPH # 0.9 10^3/uL (1.5-5.0); MEAN CORPUSCULAR HGB CONC 30.6 g/dl (32.0-36.5); MEAN CORPUSCULAR VOLUME 91.6 fl (80.0-96.0); MONO # 0.5 10^3/uL (0.0-0.8); MONO % 8.4 % (2.0-8.0); NEUTROPHILS # 4.6 10^3/uL (1.5-8.5); NEUTROPHILS % 73.3 % (36.0-66.0); PLATELET COUNT, AUTOMATED 168 10^3/uL (150-450); RED BLOOD COUNT 4.03 10^6/uL (4.00-5.40); WHITE BLOOD COUNT 6.3 10^3/uL (4.0-10.0)
[2022-02-14 02:00] LABS: APPEARANCE, URINE MANUAL CLEAR (CLEAR); BILIRUBIN, URINE MANUAL NEGATIVE (NEGATIVE); COLOR, URINE MANUAL LT YELLOW (YELLOW); GLUCOSE, URINE (UA) MANUAL NEGATIVE (NEGATIVE); KETONE, URINE MANUAL NEGATIVE (NEGATIVE); NITRITE, URINE MANUAL NEGATIVE (NEGATIVE); PH,URINE MAN 6.5 UNITS (5.0 - 7.0); PROTEIN, URINE MANUAL TRACE mg/dL (NEGATIVE); UROBILINOGEN, URINE MANUAL NORMAL (NORMAL)
[2022-02-14 02:01] LABS: BLOOD URINE MANUAL TRACE (NEGATIVE); LEUKOCYTE ESTERASE, URINE MAN POSITIVE (NEGATIVE)
[2022-02-14 02:08] LABS: BACTERIA, URINE NONE SEEN; HYALINE CAST, URINE NONE SEEN /lpf (0-1); SQUAMOUS EPITHELIAL CELL URINE SMALL AMOUNT /hpf (SMALL AMT); TRANSITIONAL EPI CELLS, URINE SMALL AMOUNT /hpf; WBC, URINE 30-40 /hpf (0-3)
[2022-02-14 02:09] LABS: MUCUS, URINE SMALL AMOUNT (NEGATIVE)
[2022-02-14 02:12] LABS: CK-MB VALUE MASS 3.2 NG/ML (<3.6); MB/CK RELATIVE INDEX 4.16 (< OR =4)
[2022-02-14 02:21] LABS: ALBUMIN 3.4 GM/DL (3.2-5.2); ALT/SGPT 30 U/L (12-78); BILIRUBIN,TOTAL 0.1 MG/DL (0.2-1.0); BLOOD UREA NITROGEN 16 MG/DL (7-18); CALCIUM LEVEL 8.7 MG/DL (8.8-10.2); CARBON DIOXIDE LEVEL 30 MEQ/L (21-32); CHLORIDE LEVEL 107 MEQ/L (98-107); CREATININE FOR GFR 0.95 MG/DL (0.55-1.30); GLOMERULAR FILTRATION RATE > 60.0 (>45); GLUCOSE, FASTING 126 MG/DL (70-100); LIPASE 179 U/L (73-393); MAGNESIUM LEVEL 2.2 MG/DL (1.8-2.4); POTASSIUM SERUM 3.7 MEQ/L (3.5-5.1); SODIUM LEVEL 142 MEQ/L (136-145); TOTAL PROTEIN 6.3 GM/DL (6.4-8.2)
[2022-02-14] MEDS ORDERED: FOSFOMYCIN TROMETHAMINE 3 GM POWDER PACKET (MONUROL) PO ONE (04:00)
[2022-02-14 05:20] VITALS: BP 140/64
[2022-02-14] MEDS ORDERED: FOSF3PAC2 PO (06:03)
== END 2022-02-14 05:27 | disposition home or self-care (01) ==
LOC: M ED 00:21
DX: R53.1 Weakness (principal); N39.0 Urinary tract infection, site not specified; K21.9 Gastro-esophageal reflux disease without esophagitis; Z79.82 Long term (current) use of aspirin; Z79.899 Other long term (current) drug therapy; Z88.8 Allergy status to other drugs, medicaments and biological substances
CPT/HCPCS: 71045; 80053; 81000; 82550; 82553; 83690; 83735; 84443; 84484; 85025; 93005; 96374; 99284; J0360

== ENCOUNTER 2022-02-19 11:56 | Emergency (ER) | payer MEDICARE ==
[~2022-02-19] VITALS: Ht 157.5 cm; Wt 99.5 kg
[~2022-02-19 11:56] MED LIST changes: +FOSF3PAC2 PO
[2022-02-19 14:18] LABS: HEMATOCRIT 40.8 % (36.0-47.0); HEMOGLOBIN 12.9 g/dl (12.0-15.5); MEAN CORPUSCULAR HEMOGLOBIN 28.6 pg (27.0-33.0); MEAN CORPUSCULAR HGB CONC 31.6 g/dl (32.0-36.5); MEAN CORPUSCULAR VOLUME 90.5 fl (80.0-96.0); PLATELET COUNT, AUTOMATED 205 10^3/uL (150-450); RED BLOOD COUNT 4.51 10^6/uL (4.00-5.40); WHITE BLOOD COUNT 7.1 10^3/uL (4.0-10.0)
[2022-02-19 14:41] LABS: AMPHETAMINES LEVEL URINE NEGATIVE (NEGATIVE); BARBITURATES URINE NEGATIVE (NEGATIVE); BENZODIAZEPINES URINE NEGATIVE (NEGATIVE); CANNABINOIDS URINE NEGATIVE (NEGATIVE); COCAINE METABOLITE URINE NEGATIVE (NEGATIVE); METHADONE URINE NEGATIVE (NEGATIVE); OPIATES URINE NEGATIVE (NEGATIVE); PHENCYCLIDINE URINE NEGATIVE (NEGATIVE)
[2022-02-19 14:48] LABS: RSV AMPLIFICATION NEGATIVE (NEGATIVE)
[2022-02-19 14:54] LABS: ALT/SGPT 39 U/L (12-78); BILIRUBIN,DIRECT 0.1 MG/DL (0.0-0.2); BILIRUBIN,TOTAL 0.3 MG/DL (0.2-1.0); BLOOD UREA NITROGEN 14 MG/DL (7-18); CALCIUM LEVEL 9.4 MG/DL (8.8-10.2); CARBON DIOXIDE LEVEL 28 MEQ/L (21-32); CHLORIDE LEVEL 105 MEQ/L (98-107); CREATININE FOR GFR 0.59 MG/DL (0.55-1.30); ETHYL ALCOHOL (ETHANOL) < 0.003 % (0.000-0.010); GLOMERULAR FILTRATION RATE > 60.0 (>45); GLUCOSE, FASTING 97 MG/DL (70-100); POTASSIUM SERUM 3.9 MEQ/L (3.5-5.1); SALICYLATE LEVEL < 1.7 MG/DL (5.0-30.0); SODIUM LEVEL 139 MEQ/L (136-145); TOTAL PROTEIN 7.6 GM/DL (6.4-8.2)
[2022-02-19] MEDS ORDERED: RISP-9 PO (18:35)
[2022-02-19] MEDS ORDERED: MULT-110 PO (18:35)
[2022-02-19] MEDS ORDERED: TIZA2TA PO (18:35)
[2022-02-19] MEDS ORDERED: MUPI2OI TOP (18:35)
[2022-02-19] MEDS ORDERED: ATIV1TAB10 PO (18:35)
[2022-02-19] MEDS ORDERED: BACTDSTA PO (18:35)
[2022-02-19] MEDS ORDERED: PATIENT COMMENT (18:36)
[2022-02-19] MEDS ORDERED: HOME MED LIST COMPLETE! XX SCH (18:40)
[2022-02-19 20:55] LABS: ACETAMINOPHEN LEVEL < 2.0 UG/ML (0.0-30.0)
[2022-02-19] MEDS: HYDROXYCHLOROQUINE 200 MG TAB PO SCH ×2 (21:00→22:17)
[2022-02-19] MEDS: QUEtiapine FUMARATE **XR** 200MG TABLET PO SCH (21:00)
[2022-02-19] MEDS ORDERED: LORazepam 0.5 MG TAB PO STA (21:19)
[2022-02-19] MEDS ORDERED: LITHIUM CARBONATE 300 MG CAP PO ONE (21:20)
[2022-02-19] MEDS ORDERED: risperiDONE 1 MG TAB PO ONE (21:20)
[2022-02-19] MEDS ORDERED: QUEtiapine FUMARATE 200 MG TAB PO ONE ×2 (21:20→22:40)
[2022-02-20 02:30] LABS: LITHIUM LEVEL 0.69 MEQ/L (0.60-1.20)
[2022-02-20] MEDS ORDERED: ACETAMINOPHEN TAB 650MG DOSE (2X325MG) PO ONE (05:50)
[2022-02-20] MEDS: LEVOTHYROXINE 50MCG TABLET (0.05MG) PO SCH (06:00)
[2022-02-20] MEDS ORDERED: OMEPRAZOLE 20MG CAP PO ONE (09:00)
[2022-02-20] MEDS ORDERED: hydroCHLOROthiazide 12.5 MG CAPSULE PO ONE (09:00)
[2022-02-20] MEDS ORDERED: FEXOFENADINE 60MG TAB PO SCH (09:00)
[2022-02-20] MEDS ORDERED: QUEtiapine FUMERATE XR 50MG TABER PO SCH (09:00)
[2022-02-20] MEDS: HYDROXYCHLOROQUINE 200 MG TAB PO SCH ×3 (09:00→22:02)
[2022-02-20] MEDS ORDERED: QUEtiapine FUMARATE 50MG TAB PO ONE (09:00)
[2022-02-20] MEDS ORDERED: ASPIRIN 81 MG CHEW TABLET PO ONE (09:00)
[2022-02-20] MEDS: TIMOLOL MALEATE 0.5% OPHTH SOLN 5 ML OU SCH ×2 (09:36→22:01)
[2022-02-20] MEDS: QUEtiapine FUMARATE 50MG TAB PO SCH (17:30)
[2022-02-20] MEDS ORDERED: LITHIUM CARBONATE 300 MG CAP PO ONE (21:00)
[2022-02-20] MEDS ORDERED: QUEtiapine FUMERATE XR 50MG TABER PO ONE (21:00)
[2022-02-20] MEDS ORDERED: risperiDONE 1 MG TAB PO ONE (21:00)
[2022-02-20] MEDS: QUEtiapine FUMARATE **XR** 200MG TABLET PO SCH (22:00)
[2022-02-21] MEDS: LEVOTHYROXINE 50MCG TABLET (0.05MG) PO SCH (07:37)
[2022-02-21] MEDS: HYDROXYCHLOROQUINE 200 MG TAB PO SCH ×3 (09:00→23:25)
[2022-02-21] MEDS: TIMOLOL MALEATE 0.5% OPHTH SOLN 5 ML OU SCH ×2 (09:02→23:25)
[2022-02-21] MEDS: QUEtiapine FUMARATE 50MG TAB PO SCH (14:00)
[2022-02-21] MEDS ORDERED: LATANOPROST 0.005% OPHTH SOLN 2.5 ML OU SCH (21:00)
[2022-02-21] MEDS: QUEtiapine FUMARATE **XR** 200MG TABLET PO SCH (23:56)
[2022-02-22] MEDS: TIMOLOL MALEATE 0.5% OPHTH SOLN 5 ML OU SCH (08:33)
[2022-02-22] MEDS: LEVOTHYROXINE 50MCG TABLET (0.05MG) PO SCH (08:34)
[2022-02-22] MEDS: HYDROXYCHLOROQUINE 200 MG TAB PO SCH ×2 (08:34→08:37)
[2022-02-22 10:58] VITALS: BP 162/81
== END 2022-02-22 10:59 ==
LOC: M ED 11:56
DX: F25.9 Schizoaffective disorder, unspecified (principal); I10 Essential (primary) hypertension; R56.9 Unspecified convulsions; E03.9 Hypothyroidism, unspecified; K21.9 Gastro-esophageal reflux disease without esophagitis; H40.9 Unspecified glaucoma; Z79.890 Hormone replacement therapy; Z79.82 Long term (current) use of aspirin; Z79.899 Other long term (current) drug therapy; Z88.8 Allergy status to other drugs, medicaments and biological substances

== ENCOUNTER 2022-04-02 18:50 | Emergency (ER) | payer MEDICARE, MEDICAID ==
[~2022-04-02] VITALS: Ht 157.5 cm; Wt 104.6 kg
[~2022-04-02 18:50] MED LIST changes: +BACTDSTA PO; -LACT3000 PO; +LACT30006 PO; +MULT-110 PO; +MUPI2OI TOP; +PATIENT COMMENT; +TIZA2TA PO
[2022-04-02] MEDS ORDERED: KETOROLAC 30 MG/ML 1ML VIAL As Ordered ONE (22:47)
[2022-04-02] MEDS ORDERED: LIDO5DIS41 TD (22:47)
[2022-04-02 22:55] VITALS: BP 184/84
[2022-04-02] MEDS ORDERED: KETOROLAC 30 MG/ML 1ML VIAL IM ONE (23:15)
== END 2022-04-02 23:08 | disposition home or self-care (01) ==
LOC: M ED 18:50
DX: S39.012A Strain of muscle, fascia and tendon of lower back, initial encounter (principal); Z79.82 Long term (current) use of aspirin; Z79.899 Other long term (current) drug therapy; Z88.8 Allergy status to other drugs, medicaments and biological substances
CPT/HCPCS: 80047; 96372; 99283; J1885

== ENCOUNTER 2022-04-12 19:07 | Emergency (ER) | payer MEDICARE ==
[2022-04-12 23:03] LABS: BASO % 0.5 % (0.0-1.0); EOS # 0.3 10^3/uL (0.0-0.5); EOS % 3.8 % (0.0-3.0); HEMATOCRIT 40.5 % (36.0-47.0); HEMOGLOBIN 12.5 g/dl (12.0-15.5); LYMPH # 1.2 10^3/uL (1.5-5.0); LYMPH % 15.7 % (24.0-44.0); MEAN CORPUSCULAR HGB CONC 30.9 g/dl (32.0-36.5); MEAN CORPUSCULAR VOLUME 90.8 fl (80.0-96.0); MONO # 0.7 10^3/uL (0.0-0.8); MONO % 8.7 % (2.0-8.0); NEUTROPHILS # 5.3 10^3/uL (1.5-8.5); NEUTROPHILS % 70.9 % (36.0-66.0); PLATELET COUNT, AUTOMATED 170 10^3/uL (150-450); RED BLOOD COUNT 4.46 10^6/uL (4.00-5.40); WHITE BLOOD COUNT 7.5 10^3/uL (4.0-10.0)
[2022-04-12 23:57] LABS: ALBUMIN 4.1 GM/DL (3.2-5.2); BILIRUBIN,DIRECT 0.2 MG/DL (0.0-0.2); BILIRUBIN,TOTAL 0.3 MG/DL (0.2-1.0); TOTAL PROTEIN 7.9 GM/DL (6.4-8.2)
[2022-04-13 01:01] LABS: RBC, URINE 0-1 /hpf (0-3)
[2022-04-13 01:02] LABS: AMORPHOUS SEDIMENT, URINE MOD AMOUNT (NEGATIVE); BACTERIA, URINE NONE SEEN; HYALINE CAST, URINE NONE SEEN /lpf (0-1); SQUAMOUS EPITHELIAL CELL URINE SMALL AMOUNT /hpf (SMALL AMT)
[2022-04-13 01:57] VITALS: BP 143/67
== END 2022-04-13 02:22 | disposition home or self-care (01) ==
LOC: EDBD 19:07 → M ED 19:07
DX: R35.0 Frequency of micturition (principal); R11.2 Nausea with vomiting, unspecified; I10 Essential (primary) hypertension; K21.9 Gastro-esophageal reflux disease without esophagitis; R56.9 Unspecified convulsions; G47.33 Obstructive sleep apnea (adult) (pediatric); Z87.448 Personal history of other diseases of urinary system; Z87.11 Personal history of peptic ulcer disease; F25.9 Schizoaffective disorder, unspecified; Z86.16 Personal history of COVID-19; Z79.82 Long term (current) use of aspirin; Z79.899 Other long term (current) drug therapy

== ENCOUNTER 2022-05-06 21:03 | Emergency (ER) | payer MEDICAID, MEDICARE, OTHER ==
[~2022-05-06] VITALS: Ht 157.5 cm; Wt 101.4 kg
[2022-05-06 21:29] VITALS: BP 160/80
[2022-05-06 21:56] LABS: HEMATOCRIT 38.1 % (36.0-47.0); HEMOGLOBIN 11.9 g/dl (12.0-15.5); MEAN CORPUSCULAR HEMOGLOBIN 28.5 pg (27.0-33.0); MEAN CORPUSCULAR HGB CONC 31.2 g/dl (32.0-36.5); MEAN CORPUSCULAR VOLUME 91.4 fl (80.0-96.0); PLATELET COUNT, AUTOMATED 176 10^3/uL (150-450); RED BLOOD COUNT 4.17 10^6/uL (4.00-5.40); WHITE BLOOD COUNT 7.6 10^3/uL (4.0-10.0)
[2022-05-06 22:32] LABS: RSV AMPLIFICATION NEGATIVE (NEGATIVE)
[2022-05-06 22:38] LABS: ACETAMINOPHEN LEVEL < 2.0 UG/ML (10.0-30.0); ALBUMIN 3.5 GM/DL (3.2-5.2); ALT/SGPT 24 U/L (12-78); BILIRUBIN,DIRECT < 0.1 MG/DL (0.0-0.2); BILIRUBIN,TOTAL 0.3 MG/DL (0.2-1.0); BLOOD UREA NITROGEN 17 MG/DL (7-18); CALCIUM LEVEL 9.2 MG/DL (8.8-10.2); CARBON DIOXIDE LEVEL 29 MEQ/L (21-32); CHLORIDE LEVEL 106 MEQ/L (98-107); CREATININE FOR GFR 0.69 MG/DL (0.55-1.30); ETHYL ALCOHOL (ETHANOL) 0.006 % (0.000-0.010); GLOMERULAR FILTRATION RATE > 60.0 (>45); GLUCOSE, FASTING 158 MG/DL (70-100); POTASSIUM SERUM 3.5 MEQ/L (3.5-5.1); SALICYLATE LEVEL < 1.7 MG/DL (5.0-30.0); SODIUM LEVEL 138 MEQ/L (136-145); TOTAL PROTEIN 6.8 GM/DL (6.4-8.2)
[2022-05-07] MEDS ORDERED: [UNRECOGNIZED DRUG - CODE] PO (17:51)
== END 2022-05-07 03:59 | disposition home or self-care (01) ==
LOC: M ED 21:03
DX: F43.0 Acute stress reaction (principal); E03.9 Hypothyroidism, unspecified; I10 Essential (primary) hypertension; K21.9 Gastro-esophageal reflux disease without esophagitis; Z88.8 Allergy status to other drugs, medicaments and biological substances; Z79.82 Long term (current) use of aspirin; Z79.899 Other long term (current) drug therapy

== ENCOUNTER 2022-05-07 10:56 | Emergency (ER) | payer MEDICARE ==
[~2022-05-07] VITALS: Ht 157.5 cm; Wt 101.4 kg
[2022-05-07 11:04] VITALS: BP 168/85
[2022-05-07 11:58] LABS: MEAN CORPUSCULAR HEMOGLOBIN 28.6 pg (27.0-33.0); MEAN CORPUSCULAR HGB CONC 31.6 g/dl (32.0-36.5); MEAN CORPUSCULAR VOLUME 90.5 fl (80.0-96.0); PLATELET COUNT, AUTOMATED 168 10^3/uL (150-450); WHITE BLOOD COUNT 6.3 10^3/uL (4.0-10.0)
[2022-05-07 12:30] LABS: RSV AMPLIFICATION NEGATIVE (NEGATIVE)
[2022-05-07 12:35] LABS: AMPHETAMINES LEVEL URINE NEGATIVE (NEGATIVE); BARBITURATES URINE NEGATIVE (NEGATIVE); BENZODIAZEPINES URINE NEGATIVE (NEGATIVE); CANNABINOIDS URINE NEGATIVE (NEGATIVE); COCAINE METABOLITE URINE NEGATIVE (NEGATIVE); METHADONE URINE NEGATIVE (NEGATIVE); OPIATES URINE NEGATIVE (NEGATIVE); PHENCYCLIDINE URINE NEGATIVE (NEGATIVE)
[2022-05-07 12:48] LABS: ACETAMINOPHEN LEVEL < 2.0 UG/ML (10.0-30.0); ALBUMIN 3.6 GM/DL (3.2-5.2); ALT/SGPT 22 U/L (12-78); BILIRUBIN,DIRECT 0.2 MG/DL (0.0-0.2); BILIRUBIN,TOTAL 0.3 MG/DL (0.2-1.0); BLOOD UREA NITROGEN 11 MG/DL (7-18); CARBON DIOXIDE LEVEL 28 MEQ/L (21-32); CHLORIDE LEVEL 108 MEQ/L (98-107); CREATININE FOR GFR 0.58 MG/DL (0.55-1.30); ETHYL ALCOHOL (ETHANOL) < 0.003 % (0.000-0.010); GLOMERULAR FILTRATION RATE > 60.0 (>45); GLUCOSE, FASTING 111 MG/DL (70-100); LITHIUM LEVEL 0.62 MEQ/L (0.60-1.20); POTASSIUM SERUM 3.6 MEQ/L (3.5-5.1); SALICYLATE LEVEL < 1.7 MG/DL (5.0-30.0); SODIUM LEVEL 139 MEQ/L (136-145); TOTAL PROTEIN 6.7 GM/DL (6.4-8.2)
[2022-05-07] MEDS ORDERED: [UNRECOGNIZED DRUG - CODE] PO (17:51)
[2022-05-07] MEDS ORDERED: HOME MED LIST COMPLETE! XX SCH (17:55)
== END 2022-05-07 18:10 | disposition home or self-care (01) ==
LOC: M ED 10:56
DX: F25.9 Schizoaffective disorder, unspecified (principal); I10 Essential (primary) hypertension; K21.9 Gastro-esophageal reflux disease without esophagitis; G47.33 Obstructive sleep apnea (adult) (pediatric); Z86.16 Personal history of COVID-19; Z86.718 Personal history of other venous thrombosis and embolism; Z88.8 Allergy status to other drugs, medicaments and biological substances; Z79.899 Other long term (current) drug therapy; Z79.82 Long term (current) use of aspirin

== ENCOUNTER → 2022-05-11 | Outpatient (CLI) | payer MEDICAID, MEDICARE, OTHER ==
[~2022-05-11] MED LIST changes: +ISOVUE-300 61% 50ML VIAL As Ordered ONE; +LIDOCAINE 1% MDV 20ML VIAL As Ordered ONE; +TRIAMCINOLONE ACETONIDE SUSP 40 MG/ML VIAL (J3301) As Ordered ONE; +[UNRECOGNIZED DRUG - CODE] PO
== END ==
LOC: M RADPRO 11:16
PROVIDERS: ATTEND Orthopaedic Surgery
DX: M16.11 Unilateral primary osteoarthritis, right hip (principal)
CPT/HCPCS: 20610; 76000; J3301; Q9967

== ENCOUNTER 2022-05-18 17:49 | Emergency (ER) | payer MEDICARE, OTHER ==
[~2022-05-18] VITALS: Ht 160 cm; Wt 101.4 kg
[~2022-05-18 17:49] MED LIST changes: -ISOVUE-300 61% 50ML VIAL As Ordered ONE; -LIDOCAINE 1% MDV 20ML VIAL As Ordered ONE; -TRIAMCINOLONE ACETONIDE SUSP 40 MG/ML VIAL (J3301) As Ordered ONE
[2022-05-18 22:37] VITALS: BP 159/71
== END 2022-05-18 22:40 | disposition home or self-care (01) ==
LOC: M ED 17:49
DX: F43.0 Acute stress reaction (principal); K21.9 Gastro-esophageal reflux disease without esophagitis; I10 Essential (primary) hypertension; R56.9 Unspecified convulsions; Z79.82 Long term (current) use of aspirin; Z79.890 Hormone replacement therapy; Z79.899 Other long term (current) drug therapy; Z88.8 Allergy status to other drugs, medicaments and biological substances

== ENCOUNTER → 2022-05-20 | Outpatient (REF) | payer MEDICARE ==
[2022-05-20 16:40] LABS: HEMATOCRIT 41.9 % (36.0-47.0); HEMOGLOBIN 12.9 g/dl (12.0-15.5); MEAN CORPUSCULAR HEMOGLOBIN 28.4 pg (27.0-33.0); MEAN CORPUSCULAR HGB CONC 30.8 g/dl (32.0-36.5); MEAN CORPUSCULAR VOLUME 92.3 fl (80.0-96.0); PLATELET COUNT, AUTOMATED 184 10^3/uL (150-450); RED BLOOD COUNT 4.54 10^6/uL (4.00-5.40); WHITE BLOOD COUNT 8.3 10^3/uL (4.0-10.0)
[2022-05-20 17:08] LABS: ALBUMIN 3.8 GM/DL (3.2-5.2); ALT/SGPT 25 U/L (12-78); BILIRUBIN,TOTAL 0.3 MG/DL (0.2-1.0); BLOOD UREA NITROGEN 17 MG/DL (7-18); CALCIUM LEVEL 9.5 MG/DL (8.8-10.2); CARBON DIOXIDE LEVEL 31 MEQ/L (21-32); CHLORIDE LEVEL 104 MEQ/L (98-107); CREATININE FOR GFR 0.69 MG/DL (0.55-1.30); GLOMERULAR FILTRATION RATE > 60.0 (>45); GLUCOSE, FASTING 126 MG/DL (70-100); LITHIUM LEVEL 0.51 MEQ/L (0.60-1.20); POTASSIUM SERUM 3.8 MEQ/L (3.5-5.1); SODIUM LEVEL 138 MEQ/L (136-145); TOTAL PROTEIN 7.1 GM/DL (6.4-8.2)
== END ==
LOC: M LABDRAWC 16:14
PROVIDERS: ATTEND Nurse Practitioner Psychiatric/Mental Health
DX: F25.0 Schizoaffective disorder, bipolar type (principal)

== ENCOUNTER 2022-06-10 18:26 | Emergency (ER) | payer MEDICARE ==
[~2022-06-10] VITALS: Ht 157.5 cm; Wt 92.3 kg
[2022-06-10 20:56] VITALS: BP 158/74
== END 2022-06-10 21:00 | disposition home or self-care (01) ==
LOC: M ED 18:26
DX: F43.0 Acute stress reaction (principal); K21.9 Gastro-esophageal reflux disease without esophagitis; H40.9 Unspecified glaucoma; F31.9 Bipolar disorder, unspecified; F25.9 Schizoaffective disorder, unspecified; Z79.82 Long term (current) use of aspirin; Z79.899 Other long term (current) drug therapy; Z88.8 Allergy status to other drugs, medicaments and biological substances

== ENCOUNTER 2022-06-30 14:37 | Emergency (ER) | payer MEDICARE, OTHER ==
[~2022-06-30] VITALS: Ht 160 cm; Wt 101.0 kg
[~2022-06-30 14:37] MED LIST changes: -QUET200T54 PO; +QUET200T79 PO
[2022-06-30 15:33] LABS: HEMATOCRIT 41.3 % (36.0-47.0); HEMOGLOBIN 12.8 g/dl (12.0-15.5); MEAN CORPUSCULAR HEMOGLOBIN 28.3 pg (27.0-33.0); MEAN CORPUSCULAR VOLUME 91.4 fl (80.0-96.0); PLATELET COUNT, AUTOMATED 167 10^3/uL (150-450); RED BLOOD COUNT 4.52 10^6/uL (4.00-5.40); WHITE BLOOD COUNT 8.1 10^3/uL (4.0-10.0)
[2022-06-30 16:06] LABS: RSV AMPLIFICATION NEGATIVE (NEGATIVE)
[2022-06-30 16:19] LABS: ACETAMINOPHEN LEVEL < 2.0 UG/ML (10.0-30.0); ALBUMIN 3.7 GM/DL (3.2-5.2); ALT/SGPT 31 U/L (12-78); BILIRUBIN,DIRECT 0.1 MG/DL (0.0-0.2); BILIRUBIN,TOTAL 0.3 MG/DL (0.2-1.0); BLOOD UREA NITROGEN 14 MG/DL (7-18); CALCIUM LEVEL 9.8 MG/DL (8.8-10.2); CARBON DIOXIDE LEVEL 28 MEQ/L (21-32); CHLORIDE LEVEL 104 MEQ/L (98-107); CREATININE FOR GFR 0.52 MG/DL (0.55-1.30); ETHYL ALCOHOL (ETHANOL) < 0.003 % (0.000-0.010); GLOMERULAR FILTRATION RATE > 60.0 (>45); GLUCOSE, FASTING 99 MG/DL (70-100); POTASSIUM SERUM 3.8 MEQ/L (3.5-5.1); SALICYLATE LEVEL < 1.7 MG/DL (5.0-30.0); SODIUM LEVEL 138 MEQ/L (136-145); TOTAL PROTEIN 7.1 GM/DL (6.4-8.2)
[2022-06-30 19:18] VITALS: BP 170/79
== END 2022-06-30 19:22 | disposition home or self-care (01) ==
LOC: M ED 14:37
DX: F43.0 Acute stress reaction (principal); F32.A Depression, unspecified; F20.9 Schizophrenia, unspecified; R56.9 Unspecified convulsions; K21.9 Gastro-esophageal reflux disease without esophagitis; Z88.1 Allergy status to other antibiotic agents; Z88.8 Allergy status to other drugs, medicaments and biological substances; Z79.890 Hormone replacement therapy; Z79.899 Other long term (current) drug therapy

== ENCOUNTER 2022-07-20 18:42 | Emergency (ER) | payer MEDICARE, OTHER ==
[~2022-07-20] VITALS: Ht 160 cm; Wt 104.5 kg
[2022-07-20 18:49] VITALS: BP 136/82
[2022-07-20 19:10] LABS: HEMATOCRIT 39.6 % (36.0-47.0); HEMOGLOBIN 12.5 g/dl (12.0-15.5); MEAN CORPUSCULAR HEMOGLOBIN 28.5 pg (27.0-33.0); MEAN CORPUSCULAR HGB CONC 31.6 g/dl (32.0-36.5); MEAN CORPUSCULAR VOLUME 90.4 fl (80.0-96.0); PLATELET COUNT, AUTOMATED 172 10^3/uL (150-450); RED BLOOD COUNT 4.38 10^6/uL (4.00-5.40); WHITE BLOOD COUNT 7.9 10^3/uL (4.0-10.0)
[2022-07-20 19:44] LABS: ACETAMINOPHEN LEVEL < 2.0 UG/ML (10.0-20.0); ALBUMIN 3.9 G/DL (3.2-5.2); ALT/SGPT 24 U/L (7.0-40); BILIRUBIN,DIRECT 0.1 MG/DL (<0.4); BILIRUBIN,TOTAL 0.4 MG/DL (0.3-1.2); BLOOD UREA NITROGEN 12 MG/DL (9-23); CARBON DIOXIDE LEVEL 29 MMOL/L (20-31); CHLORIDE LEVEL 101 MMOL/L (98-107); CREATININE FOR GFR 0.61 MG/DL (0.55-1.30); ETHYL ALCOHOL (ETHANOL) 0.003 % (0.000-0.010); GLOMERULAR FILTRATION RATE > 60.0 (>45); GLUCOSE, FASTING 113 MG/DL (74-106); POTASSIUM SERUM 3.4 MMOL/L (3.5-5.1); SODIUM LEVEL 138 MMOL/L (136-145); THYROID STIMULATING HORMONE 1.269 uIU/ML (0.55-4.78); TOTAL PROTEIN 6.9 G/DL (5.7-8.2)
[2022-07-20 19:53] LABS: RSV AMPLIFICATION NEGATIVE (NEGATIVE)
[2022-07-20 20:04] LABS: SALICYLATE LEVEL < 3.0 MG/DL (<30)
[2022-07-20] MEDS ORDERED: POTASSIUM CHLORIDE 10MEQ SR TABLET PO ONE (20:10)
[2022-07-20 20:56] LABS: AMPHETAMINES LEVEL URINE NEGATIVE (NEGATIVE); BARBITURATES URINE NEGATIVE (NEGATIVE); BENZODIAZEPINES URINE NEGATIVE (NEGATIVE); CANNABINOIDS URINE NEGATIVE (NEGATIVE); COCAINE METABOLITE URINE NEGATIVE (NEGATIVE); METHADONE URINE NEGATIVE (NEGATIVE); OPIATES URINE NEGATIVE (NEGATIVE); PHENCYCLIDINE URINE NEGATIVE (NEGATIVE)
== END 2022-07-20 21:41 | disposition home or self-care (01) ==
LOC: M ED 18:42
DX: F43.0 Acute stress reaction (principal); I10 Essential (primary) hypertension; G47.33 Obstructive sleep apnea (adult) (pediatric); F32.9 Major depressive disorder, single episode, unspecified; K21.9 Gastro-esophageal reflux disease without esophagitis; Z86.718 Personal history of other venous thrombosis and embolism; Z79.82 Long term (current) use of aspirin; Z79.890 Hormone replacement therapy; Z79.899 Other long term (current) drug therapy; Z88.8 Allergy status to other drugs, medicaments and biological substances

== ENCOUNTER → 2022-11-03 | Outpatient (REF) | payer MEDICARE, OTHER ==
[~2022-11-03] MED LIST changes: +LIDO15SO4 SSP; -LIDO2SOL17 SSP
[2022-11-03 11:51] LABS: HEMATOCRIT 41.3 % (36.0-47.0); HEMOGLOBIN 12.7 g/dl (12.0-15.5); MEAN CORPUSCULAR HEMOGLOBIN 28.5 pg (27.0-33.0); MEAN CORPUSCULAR HGB CONC 30.8 g/dl (32.0-36.5); MEAN CORPUSCULAR VOLUME 92.8 fl (80.0-96.0); PLATELET COUNT, AUTOMATED 170 10^3/uL (150-450); RED BLOOD COUNT 4.45 10^6/uL (4.00-5.40); WHITE BLOOD COUNT 7.1 10^3/uL (4.0-10.0)
[2022-11-03 12:12] LABS: HEMOGLOBIN A1c 5.2 % (4.0-6.0)
[2022-11-03 12:16] LABS: LITHIUM LEVEL 0.95 MMOL/L (0.60-1.20)
[2022-11-03 12:18] LABS: VALPROIC ACID (DEPAKOTE) < 3.0 UG/ML (50.0-100.0)
[2022-11-03 12:19] LABS: ALBUMIN 3.8 G/DL (3.2-5.2); ALKALINE PHOSPHATASE 112 U/L (46-116); ALT/SGPT 25 U/L (7.0-40); AST/SGOT 24 U/L (<34); BILIRUBIN,DIRECT 0.2 MG/DL (<0.4); BILIRUBIN,TOTAL 0.6 MG/DL (0.3-1.2); BLOOD UREA NITROGEN 15 MG/DL (9-23); CALCIUM LEVEL 9.7 MG/DL (8.3-10.6); CARBON DIOXIDE LEVEL 28 MMOL/L (20-31); CHLORIDE LEVEL 103 MMOL/L (98-107); CREATININE FOR GFR 0.66 MG/DL (0.55-1.30); GLOMERULAR FILTRATION RATE > 60.0 (>45); GLUCOSE, FASTING 102 MG/DL (74-106); PHOSPHORUS LEVEL 3.5 MG/DL (2.4-5.1); POTASSIUM SERUM 3.8 MMOL/L (3.5-5.1); SODIUM LEVEL 140 MMOL/L (136-145); THYROID STIMULATING HORMONE 1.531 uIU/ML (0.55-4.78); TOTAL PROTEIN 6.8 G/DL (5.7-8.2)
== END ==
LOC: M LABDRAWC 11:18
PROVIDERS: ATTEND Nurse Practitioner Psychiatric/Mental Health
DX: F25.0 Schizoaffective disorder, bipolar type (principal); I10 Essential (primary) hypertension; E78.2 Mixed hyperlipidemia; E03.9 Hypothyroidism, unspecified; E55.9 Vitamin D deficiency, unspecified

== ENCOUNTER → 2022-11-03 | Outpatient (REF) | payer MEDICARE, OTHER ==
[2022-11-03 12:19] LABS: ALBUMIN 3.8 G/DL (3.2-5.2); ALKALINE PHOSPHATASE 111 U/L (46-116); ALT/SGPT 24 U/L (7.0-40); AST/SGOT 24 U/L (<34); BILIRUBIN,TOTAL 0.7 MG/DL (0.3-1.2); BLOOD UREA NITROGEN 15 MG/DL (9-23); CALCIUM LEVEL 9.7 MG/DL (8.3-10.6); CARBON DIOXIDE LEVEL 29 MMOL/L (20-31); CHLORIDE LEVEL 103 MMOL/L (98-107); CHOLESTEROL LEVEL 200 MG/DL (<200); CHOLESTEROL RISK RATIO 2.76 (<5); GLOMERULAR FILTRATION RATE > 60.0 (>45); GLUCOSE, FASTING 102 MG/DL (74-106); HDL CHOLESTEROL 72.4 MG/DL (>40); LDL CHOLESTEROL 101.4 MG/DL (<100); NON-HDL-C 127.6 MG/DL; POTASSIUM SERUM 3.8 MMOL/L (3.5-5.1); SODIUM LEVEL 140 MMOL/L (136-145); THYROID STIMULATING HORMONE 1.477 uIU/ML (0.55-4.78); TOTAL 25(OH) VITAMIN D 31.8 NG/ML (20.0-100.0); TOTAL PROTEIN 6.7 G/DL (5.7-8.2); TRIGLYCERIDES LEVEL 131 MG/DL (<150)
== END ==
LOC: M SFHCPLAZ 08:55
PROVIDERS: ATTEND Nurse Practitioner Adult Health
DX: I10 Essential (primary) hypertension (principal); E78.2 Mixed hyperlipidemia; E03.9 Hypothyroidism, unspecified; E55.9 Vitamin D deficiency, unspecified

== ENCOUNTER → 2022-11-28 | Outpatient (REF) | payer MEDICARE, OTHER ==
[~2022-11-28] MED LIST changes: +ARTIDRO4 OU; +LIDO15SO SSP; -LIDO15SO4 SSP; -POLYOPD OU; +TIMO0.5S20 OD; -TIMO0.5S29 OD
== END ==
LOC: M PLALAB 14:48
PROVIDERS: ATTEND Nurse Practitioner Family
DX: Z12.4 Encounter for screening for malignant neoplasm of cervix (principal)

== ENCOUNTER → 2022-11-28 | Outpatient (CLI) | payer MEDICARE, MEDICAID | LOC: M WHC 13:13 | PROVIDERS: ATTEND Nurse Practitioner Family | DX: Z12.31 Encounter for screening mammogram for malignant neoplasm of breast (principal) ==

== ENCOUNTER → 2023-01-16 | Outpatient (CLI) | payer MEDICARE, MEDICAID ==
[~2023-01-16] MED LIST changes: +LORA1TAB23 PO; -LORA1TAB4 PO
[2023-01-16 13:30] LABS: ALBUMIN 3.8 G/DL (3.2-5.2); ALKALINE PHOSPHATASE 127 U/L (46-116); ALT/SGPT 26 U/L (7.0-40); AST/SGOT 22 U/L (<34); BILIRUBIN,TOTAL 0.4 MG/DL (0.3-1.2); BLOOD UREA NITROGEN 21 MG/DL (9-23); CARBON DIOXIDE LEVEL 30 MMOL/L (20-31); CHLORIDE LEVEL 102 MMOL/L (98-107); CREATININE FOR GFR 0.63 MG/DL (0.55-1.30); GLOMERULAR FILTRATION RATE > 60.0 (>45); GLUCOSE, FASTING 80 MG/DL (74-106); POTASSIUM SERUM 4.2 MMOL/L (3.5-5.1); SODIUM LEVEL 139 MMOL/L (136-145); THYROID STIMULATING HORMONE 2.663 uIU/ML (0.55-4.78); TOTAL PROTEIN 6.9 G/DL (5.7-8.2)
== END ==
LOC: M PLALAB 11:38
PROVIDERS: ATTEND Nurse Practitioner Adult Health
DX: E03.9 Hypothyroidism, unspecified (principal); E78.2 Mixed hyperlipidemia; Z11.1 Encounter for screening for respiratory tuberculosis